=== PATIENT | female | born 1970 | race Caucasian/White ===

== ENCOUNTER 2023-11-25 13:08 | Outpatient (OUT) | payer OTHER, SELFPAY ==
[2023-11-25 13:50] LABS: Basophils Absolute Auto 0.1 10^3/uL (0.0-0.1); Basophils Percent Auto 1.7 % (0.2-2.0); Eosinophils Absolute Auto 0.1 10^3/uL (0.0-0.7); Hematocrit 34.4 % (36.0-48.0); Immature Granulocytes Abs Auto 0.08 10^3/uL (0.00-0.03); Immature Granulocytes Pct Auto 2.2 % (0.0-0.5); Lymphocytes Absolute Auto 0.8 10^3/uL (1.2-3.8); Lymphocytes Percent Auto 21.8 % (20.5-60.0); Mean Corpuscular Hemoglobin 32.1 pg (26.7-34.0); Mean Corpuscular Volume 100.3 fL (81.0-99.0); Mean Platelet Volume 10.9 fL (9.5-13.5); Monocytes Absolute Auto 0.5 10^3/uL (0.3-0.8); Monocytes Percent Auto 13.5 % (1.7-12.0); Neutrophils Absolute Auto 2.1 10^3/uL (1.4-6.5); Neutrophils Percent Auto 57.8 % (43.0-75.0); Platelet Count 102 10^3/uL (150-450); Red Blood Count 3.43 10^6/uL (4.20-5.40); Red Cell Distribution Width 14.4 % (11.0-15.0); White Blood Count 3.6 10^3/uL (4.0-11.0)
[2023-11-25 13:52] LABS: Ammonia 17 umol/L (11-32)
[2023-11-25 14:05] LABS: Alanine Aminotransferase 57 U/L (14-59); Albumin Globulin Ratio 0.9; Albumin Level 3.3 g/dL (3.4-5.0); Alkaline Phosphatase 78 U/L (46-116); Anion Gap 12.1; Aspartate Amino Transferase 99 U/L (15-37); BUN Creatinine Ratio 11.5; Bilirubin Total 0.9 mg/dL (0.2-1.0); Carbon Dioxide 29.9 mmol/L (21.0-32.0); Chloride 98 mmol/L (98-107); Estimated GFR (African America >60 (>=60); Estimated GFR (Non-African Ame 55 (>=60); Globulin 3.5 g/dL; Glucose 138 mg/dL (74-106); Magnesium 1.4 mg/dL (1.8-2.4); Sodium 137 mmol/L (136-145); Thyroid Stimulating Hormone 2.108 uIU/mL (0.358-3.740); Total Protein 6.8 g/dL (6.4-8.2)
== END 2023-11-25 13:09 | disposition home or self-care (01) ==
LOC: LAB 13:16
PROVIDERS: PCP Family Medicine; Visit Provider Family Medicine
DX: F10.20 Alcohol dependence, uncomplicated (principal)
CPT/HCPCS: 36415; 80053; 82140; 83735; 84443; 85025

== ENCOUNTER 2023-12-07 18:18 | Observation (INO) | payer OTHER, SELFPAY ==
[2023-12-07] VITALS (22 sets, daily range): BP systolic 115–211; BP diastolic 75–119; PULSE 89–115; TEMP 36.8–38.8; O2SAT 79–99; BMI 25.1; BMI 29.8
--- NOTE | 2023-12-07 18:33 | CT_ITS ---
The [address] [address] Patient Name: NICOLASA SIGALA MRN: [id number] date: 1970 Sex: F Assigned Patient Location: ER Current Patient Location: [facility] Accession/Order Number: [id number] Exam Date: 12/07/2023 19:18 Report Date: 12/07/2023 20:50 At the request of: DAYNE BUENROSTRO Procedure: CT abdomen pelvis wo con EXAM: CT abdomen pelvis wo con HISTORY: Fever, urinary symptoms COMPARISON: None. TECHNIQUE: Unenhanced CT imaging of the abdomen and pelvis. This CT exam was performed using one or more of the following dose reduction techniques: Automated exposure control, adjustment of the mA and/or KV according to patient size, or use of iterative reconstruction technique. Unless otherwise stated, incidental findings do not require dedicated follow-up imaging. FINDINGS: There is linear atelectasis in the right lower lobe. The heart size is normal. There is diffuse hepatic steatosis. The spleen, pancreas, adrenal glands, and left kidney have a normal noncontrast enhanced appearance. There is a punctate nonobstructing right midpole renal calculus. The gallbladder is distended. There is no biliary duct dilatation. The bowel is unobstructed. The appendix is normal. There is sigmoid diverticulosis without acute diverticulitis. The bladder is distended and grossly normal. There is diffuse body wall anasarca. There is degenerative disc disease of the lumbar spine. CT/CT abdomen pelvis wo con IMPRESSION: 1. Hepatic steatosis. 2. Punctate nonobstructive right nephrolithiasis. 3. Sigmoid diverticulosis without acute diverticulitis. 4. Right lower lobe atelectasis. Electronically authenticated by: CHAR ROMERO Date: 12/07/2023 20:50
--- OUTSIDE RECORDS SUMMARY | 2023-12-07 18:35 | XMS_ITS | CCD ---
Author Organization [facility] Care Team Providers Care Sanitary Napkin Machine Tender Name Role Phone Jhoan Roberto Unavailable Unavailable Jhoan Roberto Unavailable Unavailable Kelly Soto Unavailable Unavailab Kelly Tilley Unavailable Unavailable Onel Whitfield Unavailable Unavailable Ever Eyal U Unavailable Unavailable Jhoan Roberto Unavailable Unavailable Unavailable Huong Landis Unavailable Unavailable Jhoan Roberto MD Primary Care Provider [phone] Jhoan Roberto MD Primary Care Provider [phone] Jhoan Roberto MD Primary Care Provider Jhoan Roberto MD Primary Care Provider Jhoan Roberto MD Unavailable Alfredo ROBERTO Attending Unavaila Alfredo Owens Referring Unavaila Alfredo Owens Primary Care Unavaila Alfredo Owens Attending Daa Alfredo Owens Referring Unavaila ble Alfredo ROBERTO Primary Care Unavaila Alfredo Owens Primary Care Unavaila Alfredo Owens Attending Unavaila Alfredo Owens Referring Unavaila ble Alfredo ROBERTO Primary Care Unavaila Alfredo Owens Referring Unavaila ble Alfredo ROBERTO Attending Unavaila Alfredo Owens Attending Unavaila Alfredo Owens Referring Unavaila ble Alfredo ROBERTO Primary Care Unavaila Alfredo Owens Primary Care Unavaila ble EYREAlfredo Attending Unavaila ble EYREAlfrdeo Referring Unavaila ble EYREAlfredo Primary Care Unavaila ble EYREAlfredo Referring Unavaila ble EYREAlfredo Attending Unavaila ble EYREAlfredo Attending Unavaila ble EYREAlfredo Referring Unavaila ble EYREAlfredo Primary Care Unavaila ble EYREAlfredo Attending Unavaila ble EYREAlfredo Referring Unavaila ble EYREAlfredo Primary Care Unavaila ble EYREAlfredo Primary Care Unavaila ble EYREAlfredo Referring Unavaila ble EYRE, Alfredo FARRELL Attending Unavaila ble EYREAlfredo Primary Care Unavaila ble EYREAlfredo Referring Unavaila ble EYRE, Alfredo FARRELL Attending Unavaila ble EYREAlfredo Attending Unavaila ble EYREAlfredo Referring Unavaila ble EYREAlfredo Primary Care Unavaila ble EYREAlfredo Primary Care Unavaila ble EYREAlfredo Attending Unavaila ble EYREAlfredo Referring Unavaila ble EYREAlfredo Primary Care Unavaila ble EYREAlfredo Attending Unavaila ble EYREAlfredo Referring Unavaila ble EYREAlfredo Primary Care Unavaila ble EYREAlfredo Attending Unavaila ble EYREAlfredo Referring Unavaila ble EYREAlfredo Primary Care Unavaila ble EYREAlfredo Attending Unavaila ble EYREAlfredo Referring Unavaila ble EYREAlfredo Primary Care Unavaila ble EYREAlfredo Attending Unavaila ble EYREAlfredo Referring Unavaila ble EYREAlfredo Primary Care Unavaila ble EYREAlfredo Referring Unavaila ble EYREAlfredo Attending Unavaila ble Alfredo ROBERTO Primary Care Unavaila ble Alfredo ROBERTO Referring Unavaila ble EYAlfredo HAGAN Attending Unavaila ble EYAlfredo HAGAN Attending Unavaila ble Alfredo ROBERTO Referring Unavaila ble EYAlfredo HAGAN Primary Care Unavaila ble Eymilo, Dr. Jhoan Farrell Primary Care Unavailab giovanni Landis, Dr. Huong Sanders Attending Comfort genevieve JOHNSON, MD CHAR ALAS Attending Un available Eyre, Dr. Jhoan Farrell Referring Unavailab le Eyre, Dr. Jhoan Farrell Primary Care Unavailab le Eyre, Dr. Jhoan Farrell Attending Unavailab le ALEX, MD CHAR ALAS Referring Un available Eyre, Dr. Jhoan Farrell Primary Care Unavailab le Eyre, Dr. Jhoan Farrell Primary Care Unavailab le Eyre, Dr. Jhoan Farrell Attending Unavailab le Eyre, Dr. Jhoan Farrell Referring Unavailab le Eyre, Dr. Jhoan Farrell Attending Unavailab le Eyre, Dr. Jhoan Farrell Referring Unavailab le Eyre, Dr. Jhoan Farrell Primary Care Unavailab le Eyre, Dr. Jhoan Farrell Primary Care Unavailab le Eyre, Dr. Jhoan Farrell Attending Unavailab le Eyre, Dr. Jhoan Farrell Referring Unavailab le UNKNOWN, UNKNOWN Referring Unavailable Elizondo, Ms. Kenzie Mills Attending Unavailable Felisa, Dr. Jhoan Farrell Primary Care Unavailab giovanni Landis, Dr. Huong Sanders Attending Comfort genevieve Guerra, Referral Referring Unavailable Eymilo, Dr. Jhoan Farrell Primary Care Unavailab JAROD Jones Attending Unavailable JHOAN ROBERTO Primary Care Unavailable JAROD GHOSH Referring Unavailable JHOAN ROBERTO Primary Care Unavailable MICK KIMBALL Referring Unavailable EYJHOAN HAGAN Primary Care Unavailable EYJHOAN HAGAN Primary Care Unavailable JAROD GHOSH Attending Unavailable JAROD GHOSH Attending Unavailable JHOAN ROBERTO Primary Care Unavailable JAROD GHOSH Referring Unavailable JHOAN ROBERTO Primary Care Unavailable KELLY AMES Referring Unavailable JHOAN ROBERTO Primary Care Unavailable Jhoan Roberto MD Primary Care Provider JHOAN ROBERTO Primary Care Unavailable KELLY AMES Attending Jessica SANTOS MD, CHRISTOPHER Attending JHOAN Mcdonald Primary Care Unavailable NEGAR MICHELLE Referring Unavailable EYRE, JHOAN Dima Primary Care Unavailable EYRE, JHOAN C Primary Care Unavailable NEGAR MICHELLE Attending Unavailable TOD WONG Attending Unavailabl maninder MAYFIELDY KRYSTINA Referring Unavailable EYRE, JHOAN C Primary Care Unavailable BIN FUENTES Consulting Unavailable TOD WONG Admitting Unavailabl e JENNYRE, JHOAN C Primary Care Unavailable WENDI RAMON Attending Unavailable HUONG LANDIS Attending Unavailable EYRE, JHOAN Dima Primary Care Unavailable EYRE, JHOAN Ch Attending Unavailable EYRE, JHOAN C Primary Care Unavailable EYRE, JHOAN Ch Attending Unavailable EYRE, JHOAN C Primary Care Unavailable EYRE, JHOAN Ch Attending Unavailable EYRE, JHOAN C Primary Care Unavailable HUONG LANDIS Attending Unavailable EYRE, JHOAN C Primary Care Unavailable EYRE, JHOAN Dima Attending Unavailable EYRE, JHOAN C Primary Care Unavailable EYRE, JHOAN C Primary Care Unavailable EYRE, JHOAN C Referring Unavailable EYRE, JHOAN C Primary Care Unavailable KENZIE ELIZONDO Referring Unavailable EYRE, JHOAN Dima Primary Care Unavailable MILTON FARRELL Attending Unavailable EYRE, JHOAN Ch Referring Unavailable EYRE, JHOAN C Primary Care Unavailable EYRE, JHOAN C Primary Care Unavailable ERNANDEZ Attending Unavailable EYRE, JHAON Primary Care Unavailable Allergies Allergy Classification Reported Allergen(s) Allergy Type Date of Onset Reaction(s) Facility (14 sources) Seasonal allergy; Translations: [SEASONAL ALLERGIES] Allergy to substance 3 Other: See [facility] (16 sources) Pollen; Translations: [POLLEN EXTRACTS] Propensity to adverse reactions 3 Other [facility] Medications Current Medications Medication Drug Class(es) Dates Sig (Normalized) Sig (Original) acamprosate calcium 333 mg delayed release oral tablet (1 source) Start: 10-20-2023 End: 11-19-2023 take 3 tablets by mouth twice daily acamprosate DR (CAMPRAL) 333 mg tablet Take 3 tablets by mouth two times a day. 180 tablet 0 10/20/2023 11/19/2023 Active amLODIPine 5 mg oral tablet (20 sources) Dihydropyridine Calcium Channel Hernando Start: 01-13-2013 End: 02-23-2023 take 1 tablet by mouth once daily amLODIPine (NORVASC) 5 mg tablet Take 5 mg by mouth once daily. 1 02/09/2018 Active Start: 01-13-2013 take 0.5 tablet by m outh once daily after dinner amLODIPine Besylate 5 MG Oral Tablet TAKE 1/2 TABLET BY MOUTH DAILY after dinner FOR BLOOD PRESSURE Quantity: 1 Refills: 2 Ordered: 01-Jan-2022 Jhoan Roberto MD Start : 13-Jan-2013 Active Comment on above: Take 5 mg by mouth o nce daily. amoxicillin 875 mg / clavulanate 125 mg oral tablet (11 sources) Penicillin-class Antibacterial Start: 4 End: 4 take 1 tablet by mouth twice daily amoxicillin-clavul anate potassium (AUGMENTIN) 875-125 mg per tablet Take 1 tablet by mouth two times a day for 5 days. 10 tablet 0 10/20/2023 10/25/2023 Active Start: 01-01-2022 End: 10-17-2022 amoxicillin-pot clavulanate (Augmentin) 875-125 mg tablet Take by mouth. 0 01/01/2022 10/17/2022 Discontinued (Therapy completed) Start: 01-01-2022 Amoxicillin-Po t Clavulanate 875-125 MG Oral Tablet TAKE 1 TABLET EVERY 12 HOURS UNTIL GONE - with bid probiotic such as Activia till gone Quantity: 20 Refills: 0 Ordered: 01-Jan-2022 Jhoan Roberto MD Start : 01-Jan-2022 Active Start: 07-06-2019 Amoxicillin-Po t Clavulanate 875-125 MG Oral Tablet TAKE 1 TABLET EVERY 12 HOURS UNTIL GONE - with bid probiotic such as Activia till gone Quantity: 20 Refills: 0 Jhoan Roberto MD Start : 06-Jul-2019 Active bisoprolol fumarate 2.5 mg / hydroCHLOROthiazide 6.25 mg oral tablet (20 sources) Thiazide Diuretic, beta-Adrenergic Hernando Start: 06-23-2008 bisoprol/hydrochlorothiazide (ZIAC 2.5 MG-6.25 MG TAB) Take one(1) tablet daily. 0 06/23/2008 Active Start: 06-23-2008 bisoproloL-hyd rochlorothiazide (Ziac) 2.5-6.25 mg tablet Take by mouth. 06/23/2008 Active Comment on above: Take one(1) tablet d aily. cetirizine hydrochloride 10 mg oral capsule (20 sources) Histamine-1 Receptor Antagonist Start: 03-12-2012 End: 02-23-2023 Cetirizine 10 mg cap Take by mouth as needed. 0 03/12/2012 Active Comment on above: Take by mouth. Take by mouth as nee ded. cholecalciferol 0.025 mg oral tablet (20 sources) Vitamin D Start: 02-02-2017 cholecalciferol (VITAMIN D3) 1,000 unit tab tablet Take by mouth once daily. 0 02/02/2017 Active Start: 02-02-2017 cholecalcifero l (VITAMIN D3) 1,000 unit tab tablet Take by mouth. 0 02/02/2017 Active Comment on above: Take by mouth. Take by mouth once d aily. clobetasol propionate 0.0005 mg/mg topical ointment (20 sources) Corticosteroid Start: 02-07-2021 clobetasol (TEMOVATE) 0.05 % ointment Indications: Lichen sclerosus et atrophicus Apply to affected area 1-2 times per week 45 g 5 02/07/2021 Active Start: 02-07-2021 End: 02-23-2023 clobetasol (Temovate) 0.05 % ointment Apply to affected area 1- 2 times per week 0 02/07/2021 02/23/2023 Discontinued (Therapy completed) Start: 02-07-2021 Clobetasol Pro pionate 0.05 % External Ointment Apply to affected area 1-2 times per week Quantity: 45 Refills: 0 Ordered: 05-Jun-2021 DO Start : 07-Feb-2021 Active Comment on above: Apply to affected ar ea 1-2 times per week escitalopram 20 mg oral tablet (20 sources) Serotonin Reuptake Inhibitor Start: 4 End: 4 take 1 tablet by mouth once daily escitalopram oxalate (LEXAPRO) 20 mg tablet Take 1 tablet by mouth once daily. 30 tablet 0 10/21/2023 11/20/2023 Active Start: 01-07-2021 End: 08-18-2022 take 1 tablet by mouth once daily escitalopram oxalate (LEXAPRO) 10 mg tablet TAKE ONE TABLET BY MOUTH once DAILY 90 tablet 3 08/18/2022 Active Start: 01-07-2021 take 0.5 tablet by m outh once daily Escitalopram Oxalate 10 MG Oral Tablet TAKE 1/2 TABLET BY MOUTH EVERY DAY Quantity: 1 Refills: 1 Ordered: 18-Sep-2021 Jhoan Roberto MD Start : 07-Jan-2021 Active Start: 03-22-2014 take 0.5 tablet by m outh once daily Escitalopram Oxalate 5 MG Oral Tablet 1/2 pill daily Refills: 0 Jhoan Roberto MD Start : 22-Mar-2014 Active Start: 03-22-2014 take 1 tablet by yennifer th once daily Escitalopram Oxalate 20 MG Oral Tablet TAKE ONE TABLET BY MOUTH DAILY Quantity: 90 Refills: 1 Jhoan Roberto MD Start : 22-Mar-2014 Active Comment on above: Take 1 tablet by yennifer th once daily. TAKE ONE TABLET BY M OUTH EVERY DAY TAKE ONE TABLET BY M OUTH once DAILY fluticasone propionate 0.05 mg/actuat metered dose nasal spray (20 sources) Corticosteroid Start: 12-20-19 take 2 spray(s) nasal route once daily in the evening fluticasone (Flonase) 50 mcg/actuation nasal spray Indications: Seasonal allergic rhinitis due to pollen Administer 2 sprays into each nostril once daily in the evening. Shake gently. Before first use, prime pump. After use, clean tip and replace cap. 16 g 11 12/19/2022 Active Start: 07-06-2019 take 2 spray(s) nasa l route once daily Fluticasone Propionate 50 MCG/ACT Nasal Suspension USE 1- 2 SPRAY IN EACH NOSTRIL nightly before CPAP Quantity: 1 Refills: 6 Ordered: 18-Sep-2021 Jhoan Roberto MD Start : 06-Jul-2019 Active Start: 07-06-2019 take 1 spray(s) nasa l route twice daily for congestion Fluticasone Propionate 50 MCG/ACT Nasal Suspension USE 1 SPRAY IN EACH NOSTRIL TWICE DAILY seasonally for congestion ear symptoms, and allergies Quantity: 1 Refills: 6 Ordered: 06-Jul-2019 Jhoan Roberto MD Start : 06-Jul-2019 Active fluticasone (BO NASE) 50 mcg/actuation nasal spray Use 1 [place] in each nostril as needed. 0 Active Comment on above: Use 1 [place] in each nostril as needed. hydroCHLOROthiazide 12.5 mg / losartan potassium 50 mg oral tablet (20 sources) Thiazide Diuretic, Angiotensin 2 Receptor Hernando Start: 10-03-19 22 End: 01-21-20 24 take 1 tablet by mouth once daily in the morning losartan-hydroCH LOROthiazide (HYZAAR) 50-12.5 mg per tablet TAKE ONE TABLET BY MOUTH EVERY MORNING for blood pressure 0 10/02/2021 Active Start: 05-09-2021 End: 10-17-2022 take 1 tablet by mouth once daily in the morning Losartan Potassium-HCTZ 100-25 MG Oral Tablet TAKE 1 TABLET BY MOUTH EVERY MORNING for blood pressure Quantity: 30 Refills: 6 Ordered: 28-May-2022 Jhoan Roberto MD Start : 09-May-2021 Active Start: 05-09-2021 take 1 tablet by yennifer once daily in the morning Losartan Potassium-HCTZ 50-12.5 MG Oral Tablet TAKE ONE TABLET BY MOUTH EVERY MORNING for blood pressure Quantity: 21 Refills: 0 Ordered: 09-May-2021 DO Start : 09-May-2021 Complete Comment on above: TAKE ONE TABLET BY M OUTH EVERY MORNING for blood pressure lisinopril 20 mg oral tablet (1 source) Angiotensin Converting Enzyme Inhibitor Start: 6 [id number] Medication lisinopril lisinopril 20 mg 06/28/2015 Active (Outside) magnesium oxide 400 mg oral tablet (20 sources) Start: 2 magnesium oxide (Mag-Ox) 400 mg (241.3 mg magnesium) tablet Take by mouth. 01/01/2022 Active omeprazole 40 mg delayed release oral capsule (20 sources) Proton Pump Inhibitor Start: 4 End: 4 take 1 capsule by mouth twice daily omeprazole (PriLOSEC) [address] capsule Indications: Dyspepsia Take 1 capsule (40 mg) by mouth 2 times a day. 60 capsule 6 09/25/2023 Active Start: 03-19-2023 take 1 capsule by mo uth twice daily omeprazole (PriLOSEC) [address] capsule Indications: Dyspepsia Take 1 capsule (40 mg) by mouth 2 times a day. 60 capsule 3 03/19/2023 Active Start: 05-09-2021 End: 10-17-2022 take 1 capsule by mouth once daily before breakfast as needed, then take 1 capsule by mouth once daily as needed omeprazole (PRILOSEC) 40 mg capsule TAKE ONE CAPSULE BY MOUTH EVERY DAY before breakfast for 4 weeks then take 1 capsule daily as needed 0 10/06/2021 Active Comment on above: TAKE ONE CAPSULE BY MOUTH EVERY DAY before breakfast for 4 weeks then take 1 capsule daily as needed predniSONE 10 mg oral tablet (20 sources) Start: 09-25-2023 predniSONE (Deltasone) 10 mg tablet Indications: Spasm of muscle of lower back Take 4 tablets once daily with food, for 2 days, then 3 tablets once daily for 2 days, then 2 tablets once daily for 2 days, and then 1 tablet daily for 2 days, then discontinue 20 tablet 09/25/2023 Active Start: 06-27-2022 End: 10-17-2022 predniSONE (Deltasone) 20 mg tablet Indications: Acute bilateral low back pain with sciatica, sciatica laterality unspecified Take 2 tabs (40mg) daily for 3 days, then take 1.5 tabs (40mg) daily for 3 days, then take 1 tab (20mg) daily for 3 days then 0.5tab (10mg) for 3 days 18 tablet 0 06/27/2022 10/17/2022 Discontinued (Therapy completed) Start: 04-07-2022 predniSONE 10 MG Oral Tablet take 4 pills once a day x 2 days with food, then 3 q.d. X2 days, then 2 q.d. X2 days, then 1 daily for 2 days then stop. Quantity: 20 Refills: 0 Ordered: 07-Apr-2022 Jhoan Roberto MD Start : 07-Apr-2022 Active Start: 01-09-2021 predniSONE 10 MG Oral Tablet take 4 pills once a day x 2 days with food, then 3 q.d. X2 days, then 2 q.d. X2 days, then 1 daily for 2 days then stop. Quantity: 20 Refills: 0 Ordered: 09-Jan-2021 Jhoan Roberto MD Start : 09-Jan-2021 Active sulfacetamide sodium 100 mg/ml / sulfur 50 mg/ml medicated liquid soap (1 source) Sulfonamide Antibacterial Start: 06-28-2015 [id number] Medication sulfacetamide sodium-sulfur 10 %-5 % (w/w) topical cleanser sulfacetamide sodium-sulfur 10 %-5 % (w/w) topical cleanser 10-5 % (w/w) 1 Application topically daily 06/28/2015 Ineffective SUMAtriptan 50 mg oral tablet (20 sources) Serotonin-1b and Serotonin-1d Receptor Agonist Start: 08-02-2015 SUMAtriptan (Imitrex ) 50 mg tablet Take by mouth. 08/02/2015 Active Start: 08-02-2015 SUMAtriptan Solis ccinate 50 MG Oral Tablet take at onset, may repeat every 2 hrs, not to exceed 200 mg in 24 hrs Quantity: 1 Refills: 3 Ordered: 24-Apr-2020 Jhoan Roberto MD Start : 02-Aug-2015 Active SUMATRIPTAN SUCC INATE (IMITREX ORAL) Take by mouth as needed. 0 Active Comment on above: Take by mouth as nee ded. tiZANidine 4 mg oral capsule (4 sources) Central alpha-2 Adrenergic Agonist Start: 09-25-2023 End: 09-24-2024 take 1 capsule by mouth every six hours for muscle spasms tiZANidine (Zanaflex) 4 mg capsule Indications: Spasm of muscle of lower back Take 1 capsule (4 mg) by mouth every 6 hours if needed for muscle spasms (may cause drowsiness). 90 capsule 2 09/25/2023 09/24/2024 Active take 1 capsule by [facility] every eight hours as needed tiZANidine HCl (ZANAFLEX) 4 mg capsule T moris 4 mg by mouth three times a day as needed for muscle spasm. 0 Active tretinoin 0.25 mg/ml topical cream (9 sources) Retinoid Start: 03-04-2023 End: 03-03-2024 tretinoin (Retin-A) 0.025 % cream Indications: Acne vulgaris Apply topically once daily at bedtime. Pea sized amount to entire face 1-2 nights weekly; work up to nightly as tolerated 45 g 11 03/04/2023 03/03/2024 Active Vitamin B Complex (13 sources) Start: 01-01-2022 take 1 tablet by mouth once daily vitamin B complex (Vitamins B Complex) tablet Take 1 tablet by mouth once daily. 01/01/2022 Active Start: 01-01-2022 take 1 tablet by [facility] once daily vitamin B complex (Vitamins B Complex) tablet Take 1 tablet by mouth once daily. 0 01/01/2022 Active Completed/Discontinued Medications Medication Drug Class(es) Dates Sig (Normalized) Sig (Original) acetaminophen 325 mg / HYDROcodone bitartrate 5 mg oral tablet (1 source) Opioid Agonist Start: 01-08-2021 take 1 tablet by mouth every six hours as needed for pain HYDROcodone-Acetam inophen 5-325 MG Oral Tablet TAKE ONE TABLET BY MOUTH EVERY 6 HOURS NEEDED FOR PAIN FOR UP TO 3 DAYS Quantity: 10 Refills: 0 Ordered: 08-Jan-2021 DO Start : 08-Jan-2021 Complete amoxicillin 500 mg oral tablet (8 sources) Penicillin-class Antibacterial Start: 01-04-2021 take 1 tablet by mouth every twelve hours Amoxicillin 500 MG Oral Tablet TAKE ONE TABLET BY MOUTH EVERY 12 HOURS FOR 10 DAYS Quantity: 20 Refills: 0 Ordered: 04-Jan-2021 DO Start : 04-Jan-2021 Active benzoyl peroxide 0.0375 mg/mg / clindamycin phosphate 0.012 mg/mg topical gel (2 sources) Lincosamide Antibacterial Start: 10-11-2015 [id number] Medication clindamycin 1.2 % (1 % base)-benzoyl peroxide 3.75 % topical gel [place] 1.2 % (1 % base)-3.75 % topical gel 1.2 %(1 % base) -3.75 % 1 Application topically in the morning 10/11/2015 Prior History No Longer Active clindamycin 10 mg/ml topical lotion (5 sources) Lincosamide Antibacterial Start: 08-02-2022 End: 02-23-2023 clindamycin (Cleocin T) 1 % lotion Apply topically 2 times a day. Apply to affected area 0 08/02/2022 02/23/2023 Discontinued (Therapy completed) Start: 06-04-2022 [id number] Medicat ion clindamycin 1 % lotion clindamycin 1 % lotion 1 % 1 Application topically twice a day 06/04/2022 Active (Current) docosahexaenoic acid 120 mg / eicosapentaenoic acid 180 mg oral capsule (20 sources) Start: 01-01-2022 End: 02-23-2023 fish oil concentrate (Bennet-3) 120-180 mg capsule Take by mouth. 0 01/01/2022 02/23/2023 Discontinued (Therapy completed) hydroCHLOROthiazide 12.5 mg oral tablet (20 sources) Thiazide Diuretic Start: 02-02-2017 End: 07-07-2022 hydroCHLOROthiazide (HYDRODIURIL, ESIDRIX) 12.5 mg tablet Take by mouth. 0 02/02/2017 07/07/2022 Discontinued Comment on above: Take by mouth. hydroCHLOROthiazide 25 mg / spironolactone 25 mg oral tablet (2 sources) Thiazide Diuretic, Aldosterone Antagonist Start: 10-11-2015 take 1 tablet by mouth once daily [id number] Medication spironolactone 25 mg tablet spironolactone 25 mg tablet 25 mg 1 Tablet by mouth daily 10/11/2015 Prior History No Longer Active methylPREDNISolone 4 MG Oral Tablet Therapy Pack (8 sources) Start: 01-04-2021 methylPREDNISolone 4 MG Oral Tablet Therapy Pack TAKE BY MOUTH DIRECTED ON PACKAGE Quantity: 21 Refills: 0 Ordered: 04-Jan-2021 DO Start : 04-Jan-2021 Active naproxen 500 mg delayed release oral tablet (20 sources) Nonsteroidal Anti-inflammator y Drug Start: 10-20-[address] 500 MG TBEC TAKE 1 TABLET EVERY 12 HOURS NEEDED with food prn pain Quantity: 40 Refills: 2 Ordered: 20-Oct-2018 Jhoan Roberto MD Start : 20-Oct-2018 Active spironolactone 50 mg oral tablet (4 sources) Aldosterone Antagonist Start: 06-28-2015 take 1 tablet by mouth in the morning [id number] Medication spironolactone 50 mg tablet spironolactone 50 mg tablet 50 mg 1 Tablet by mouth in the morning 01/09/2016 Prior History No Longer Active Vitamin B Complex Oral Tablet (20 sources) Start: 01-01-2022 take 1 tablet by mouth once daily Vitamin B Complex Oral Tablet TAKE 1 TABLET DAILY. Quantity: 0 Refills: 0 Ordered: 01-Jan-2022 Jhoan Roberto MD Start : 01-Jan-2022 Active Problems Active Problems Problem Classification Problem Date Documented Date Episodic/Chronic Abdominal pain (20 sources) Right upper quadrant pain; Translations: [Abdominal pain, right upper quadrant] Onset: 10-17-2022 Resolved: 06-07-2024 06-30-2023 Episodic Alcohol-related disorders (20 sources) Alcoholism; Translations: [Alcohol dependence, uncomplicated] Onset: 03-18-2023 Resolved: 10-20-2023 03-20-2023 Chronic Anxiety disorders (20 sources) Anxiety; Translations: [Mild anxiety] Onset: 10-17-2022 10-17-2022 Chronic Aortic; peripheral; and visceral artery aneurysms (20 sources) Ascending aorta dilatation; Translations: [Thoracic aortic ectasia] Onset: 10-17-2022 10-17-2022 Chronic Biliary tract disease (13 sources) Cholesterolosis of gallbladder; Translations: [Polyp of gallbladder] Onset: 12-24-2022 03-19-2023 Episodic Coagulation and hemorrhagic disorders (5 sources) Thrombocytopenic disorder; Translations: [Thrombocytopenia, unspecified] Onset: 09-28-2023 09-28-2023 Chronic Diseases of white blood cells (3 sources) Neutropenia; Translations: [Neutropenia, unspecified] Onset: 09-28-2023 09-28-2023 Chronic Disorders of lipid metabolism (20 sources) Pure hypercholesterolemia; Translations: [Hyperlipidemia] Onset: 06-18-2011 Resolved: 03-19-2023 10-17-2022 Chronic Diverticulosis and diverticulitis (1 source) Diverticulosis of intestine, part unspecified, without perforation or abscess without bleeding; Translations: [Diverticulosis of intestine, part unspecified, without perforation or abscess without bleeding] Onset: 11-23-2023 Chronic E Codes: Fall (1 source) Unspecified fall, initial encounter; Translations: [Fall, initial encounter] Onset: 10-16-2023 Episodic Esophageal disorders (20 sources) Gastroesophageal reflux disease; Translations: [Esophageal reflux] Onset: 10-17-2022 10-17-2022 Chronic Essential hypertension (20 sources) Hypertensive disorder; Translations: [Unspecified essential hypertension] Onset: 10-17-2022 10-17-2022 Chronic Fluid and electrolyte disorders (7 sources) Hyponatremia; Translations: [Hypo-osmolality and hyponatremia] Onset: 09-28-2023 Resolved: 10-20-2023 09-28-2023 Episodic Fracture of upper limb (5 sources) Closed fracture of base of fifth metacarpal; Translations: [Nondisplaced fracture of base of fifth metacarpal bone, left hand, initial encounter for closed fracture] Onset: 05-13-2023 04-09-2023 Episodic Headache; including migraine (20 sources) Migraine; Translations: [Migraine, unspecified, without mention of intractable migraine without mention of status migrainosus] Onset: 10-17-2022 10-17-2022 Chronic Immunizations and screening for infectious disease (20 sources) Patient encounter status; Translations: [Other specified vaccination] Episodic Menstrual disorders (20 sources) Irregular periods; Translations: [Irregular menstrual cycle] Onset: 10-17-2022 10-17-2022 Chronic Mood disorders (20 sources) Seasonal affective disorder; Translations: [Other specified episodic mood disorder] Onset: 10-17-2022 10-17-2022 Chronic Nausea and vomiting (7 sources) Nausea; Translations: [Nausea with vomiting, unspecified] Onset: 10-15-2023 Episodic Nutritional deficiencies (2 sources) Malnutrition (calorie); Translations: [Moderate protein-calorie malnutrition] Onset: 10-16-2023 10-16-2023 Chronic Open wounds of head; neck; and trunk (1 source) Laceration without foreign body of lip, initial encounter; Translations: [Lip laceration, initial encounter] Onset: 10-16-2023 Episodic Osteoarthritis (20 sources) Osteoarthritis of right knee joint; Translations: [Osteoarthrosis, localized, primary, lower leg] Onset: 10-17-2022 10-17-2022 Chronic Other and unspecified benign neoplasm (4 sources) Hemangioma of skin and subcutaneous tissue; Translations: [Hemangioma of skin and subcutaneous tissue] Onset: 02-28-2021 Episodic Other and unspecified benign neoplasm (2 sources) Melanocytic nevi of trunk Onset: 02-28-2021 Episodic Other and unspecified benign neoplasm (5 sources) Melanocytic nevi of unspecified upper limb, including shoulder Onset: 03-01-2020 Episodic Other and unspecified benign neoplasm (2 sources) Melanocytic nevi of right upper limb, including shoulder Onset: 02-28-2021 Episodic Other and unspecified benign neoplasm (2 sources) Melanocytic nevi of left upper limb, including shoulder Onset: 02-28-2021 Episodic Other and unspecified benign neoplasm (2 sources) Melanocytic nevi of unspecified lower limb, including hip Onset: 02-28-2021 Episodic Other and unspecified benign neoplasm (2 sources) Melanocytic nevi of right lower limb, including hip Onset: 02-28-2021 Episodic Other and unspecified benign neoplasm (2 sources) Melanocytic nevi of left lower limb, including hip Onset: 02-28-2021 Episodic Other and unspecified benign neoplasm (1 source) Adenomatous polyp of colon ; Translations: [Benign neoplasm of colon, unspecified] 10-17-2022 Episodic Other and unspecified benign neoplasm (2 sources) Benign neoplasm of colon; Translations: [Benign neoplasm of colon, unspecified] 02-23-2023 Episodic Other and unspecified benign neoplasm (1 source) Hemangioma of skin; Translations: [Hemangioma of skin and subcutaneous tissue] 09-30-2023 Episodic Other and unspecified benign neoplasm (1 source) Melanocytic nevus; Translations: [Melanocytic nevi, unspecified] 09-30-2023 Episodic Other and unspecified benign neoplasm (2 sources) Melanocytic nevi, unspecified; Translations: [Melanocytic nevi, unspecified] Onset: 09-30-2023 Episodic Other eye disorders (5 sources) Eye / vision finding; Translations: [Vision changes] Episodic Other liver diseases (20 sources) Steatosis of liver; Translations: [Other chronic nonalcoholic liver disease] Onset: 10-17-2022 10-17-2022 Chronic Other liver diseases (5 sources) Fatty (change of) liver, not elsewhere classified; Translations: [Fatty (change of) liver, not elsewhere classified] Onset: 10-17-2022 Chronic Other liver diseases (5 sources) Hepatomegaly, not elsewhere classified; Translations: [Hepatomegaly, not elsewhere classified] Onset: 12-24-2022 Episodic Other liver diseases (1 source) High lipase level in serum; Translations: [Abnormal levels of other serum enzymes] Onset: 10-15-2023 10-15-2023 Episodic Other liver diseases (1 source) Abnormal levels of other serum enzymes; Translations: [Elevated lipase] Onset: 10-15-2023 Episodic Other nervous system disorders (20 sources) Peripheral nerve disease ; Translations: [Unspecified hereditary and idiopathic peripheral neuropathy] Onset: 10-17-2022 10-17-2022 Chronic Other nervous system disorders (1 source) Polyneuropathy; Translations: [Other specified polyneuropathies] 01-23-2023 Chronic Other nervous system disorders (2 sources) Other specified polyneuropathies; Translations: [Other specified polyneuropathies] Onset: 10-17-2022 Chronic Other nervous system disorders (1 source) Unspecified abnormalities of gait and mobility; Translations: [Gait abnormality] Onset: 10-15-2023 Episodic Other non-traumatic joint disorders (6 sources) Knee pain; Translations: [Pain in right knee] Onset: 10-17-2022 10-17-2022 Episodic Other non-traumatic joint disorders (2 sources) Pain in left wrist; Translations: [Pain in left wrist] Onset: 04-06-2023 Episodic Other nutritional; endocrine; and metabolic disorders (5 sources) Overweight; Translations: [Overweight] Chronic Other nutritional; endocrine; and metabolic disorders (20 sources) Body mass index 30+ - obesity; Translations: [Body Mass Index 33.0-33.9, adult] Resolved: 01-07-2021 Chronic Other nutritional; endocrine; and metabolic disorders (20 sources) Obesity; Translations: [Obesity, unspecified] Chronic Other nutritional; endocrine; and metabolic disorders (20 sources) Morbid obesity; Translations: [Morbid (severe) obesity due to excess calories] Onset: 02-14-2016 Resolved: 03-19-2023 02-14-2016 Chronic Other nutritional; endocrine; and metabolic disorders (1 source) Morbid (severe) obesity due to excess calories; Translations: [Morbid obesity due to excess calories (HCC)] Onset: 02-14-2016 Chronic Other screening for suspected conditions (not mental disorders or infectious disease) (20 sources) CT of head abnormal; Translations: [Raised TSH level] Onset: 10-17-2022 Resolved: 04-25-2020 Episodic Other skin disorders (6 sources) Other melanin hyperpigmentation; Translations: [Other melanin hyperpigmentation] Onset: 02-28-2021 Episodic Other skin disorders (4 sources) Other seborrheic keratosis; Translations: [Other seborrheic keratosis] Onset: 02-28-2021 Episodic Other skin disorders (1 source) Mass of abdominal wall; Translations: [Localized swelling, mass and lump, trunk] Onset: 10-17-2022 10-17-2022 Episodic Other skin disorders (12 sources) Seborrheic keratosis; Translations: [Other seborrheic keratosis] Onset: 06-04-2022 03-04-2023 Episodic Other skin disorders (1 source) Lentiginosis; Translations: [Other melanin hyperpigmentation] 09-30-2023 Episodic Other upper respiratory disease (20 sources) Allergic rhinitis; Translations: [Allergic rhinitis, cause unspecified] Onset: 10-17-2022 10-17-2022 Chronic Comment on above: ragweed is worst sea son; Residual codes; unclassified (20 sources) Finding related to sleep; Translations: [Other sleep disturbances] Onset: 10-17-2022 Resolved: 03-30-2022 10-17-2022 Chronic Residual codes; unclassified (20 sources) Obstructive sleep apnea syndrome; Translations: [Obstructive sleep apnea (adult)(pediatric)] Onset: 10-17-2022 10-17-2022 Chronic Residual codes; unclassified (20 sources) At risk of heart disease; Translations: [Other specified conditions influencing health status] Episodic Comment on above: 10 year cardiac risk 3.3% October 2018; Residual codes; unclassified (3 sources) Memory impairment; Translations: [Other amnesia] Onset: 09-28-2023 09-28-2023 Episodic Residual codes; unclassified (1 source) Alcoholism; Translations: [Alcohol use disorder] Onset: 10-19-2023 10-19-2023 Episodic Residual codes; unclassified (2 sources) Other amnesia; Translations: [Other amnesia] Onset: 09-25-2023 Episodic Spondylosis; intervertebral disc disorders; other back problems (20 sources) Sciatica; Translations: [Sciatica] Onset: 07-31-2014 10-17-2022 Episodic Superficial injury; contusion (1 source) Abrasion of left cornea; Translations: [Injury of conjunctiva and corneal abrasion without foreign body, left eye, initial encounter] Episodic Syncope (20 sources) Near syncope; Translations: [Syncope and collapse] Onset: 01-29-2022 Resolved: 03-30-2022 10-17-2022 Episodic Unclassified (2 sources) FMLA Onset: 03-06-2023 Urinary tract infections (11 sources) Acute cystitis; Translations: [Acute cystitis with hematuria] Onset: 03-05-2018 03-05-2018 Episodic Past or Other Problems Problem Classification Problem Date Documented Date Episodic/Chronic Administrative/social admission (20 sources) Stress at work; Translations: [Adverse effects of work environment] Resolved: 03-30-2022 Episodic Blindness and vision defects (20 sources) Presbyopia; Translations: [Unspecified astigmatism, bilateral] Onset: 10-17-2022 10-17-2022 Episodic Diabetes mellitus without complication (20 sources) Prediabetes; Translations: [Other abnormal glucose] Onset: 10-17-2022 10-17-2022 Episodic Fracture of lower limb (20 sources) Fracture of phalanx of foot; Translations: [Closed fracture of one or more phalanges of foot] Onset: 10-17-2022 Resolved: 03-19-2023 10-17-2022 Episodic Genitourinary symptoms and ill-defined conditions (20 sources) H/O: hematuria; Translations: [Personal history of other specified urinary system disorders] Resolved: 07-28-2014 Episodic Nonspecific chest pain (20 sources) Chest pain; Translations: [Chest pain, unspecified] Resolved: 03-23-2019 Episodic Nutritional deficiencies (20 sources) Decreased vitamin D; Translations: [Other abnormal blood chemistry] Onset: 10-17-2022 10-17-2022 Episodic Osteoarthritis (5 sources) Osteoarthritis of right knee joint; Translations: [Primary osteoarthritis of right knee] Other and unspecified benign neoplasm (20 sources) Polyp of colon; Translations: [Benign neoplasm of colon] Onset: 10-17-2022 10-17-2022 Episodic Other and unspecified benign neoplasm (20 sources) Benign neoplasm of soft tissue; Translations: [Benign neoplasm of skin, site unspecified] Onset: 10-17-2022 10-17-2022 Episodic Other and unspecified benign neoplasm (3 sources) Benign neoplasm of colon, unspecified; Translations: [Sessile serrated polyp of colon] Onset: 02-23-2023 Episodic Other and unspecified benign neoplasm (10 sources) Melanocytic nevus of lower limb; Translations: [Melanocytic nevi of right lower limb, including hip] Onset: 06-04-2022 03-06-2023 Episodic Other and unspecified benign neoplasm (7 sources) Tubular adenoma of colon; Translations: [Benign neoplasm of colon, unspecified] Onset: 03-19-2023 03-19-2023 Episodic Other connective tissue disease (20 sources) H/O: back problem; Translations: [Personal history of other musculoskeletal disorders] Resolved: 10-06-2015 Episodic Other diseases of kidney and ureters (20 sources) Cyst of kidney; Translations: [Cyst of kidney, acquired] Onset: 03-05-2018 03-05-2018 Episodic Other eye disorders (20 sources) Swelling or mass of eye; Translations: [Puffy Eyelids] Onset: 09-29-2011 Episodic Other injuries and conditions due to external causes (20 sources) Injury of foot; Translations: [Knee, leg, ankle, and foot injury] Resolved: 03-07-2015 Episodic Other injuries and conditions due to external causes (20 sources) Injury of toe; Translations: [Knee, leg, ankle, and foot injury] Onset: 10-17-2022 Resolved: 03-19-2023 10-17-2022 Episodic Other liver diseases (20 sources) ALT (SGPT) level raised; Translations: [Nonspecific elevation of levels of transaminase or lactic acid dehydrogenase [LDH]] Resolved: 03-23-2019 Episodic Other liver diseases (7 sources) Large liver; Translations: [Hepatomegaly, not elsewhere classified] Onset: 03-19-2023 03-19-2023 Episodic Other lower respiratory disease (20 sources) Snoring; Translations: [Other respiratory abnormalities] Onset: 10-17-2022 10-17-2022 Episodic Other nervous system disorders (20 sources) Cyst of pineal gland; Translations: [Other specified endocrine disorders] Onset: 10-17-2022 10-17-2022 Episodic Other nervous system disorders (20 sources) H/O: respiratory disease; Translations: [Obstructive sleep apnea (adult)(pediatric)] Resolved: 03-30-2022 Episodic Other non-traumatic joint disorders (20 sources) Pain in right knee; Translations: [Acute pain of right knee] Onset: 10-17-2022 Resolved: 03-19-2023 10-17-2022 Episodic Other nutritional; endocrine; and metabolic disorders (20 sources) H/O: metabolic disorder; Translations: [Personal history of other endocrine, metabolic, and immunity disorders] Resolved: 10-06-2015 Episodic Other nutritional; endocrine; and metabolic disorders (20 sources) H/O: raised blood lipids; Translations: [Personal history of other endocrine, metabolic, and immunity disorders] Resolved: 03-23-2019 Episodic Other nutritional; endocrine; and metabolic disorders (20 sources) Overweight; Translations: [Overweight] Onset: 10-17-2022 10-17-2022 Episodic Other skin disorders (20 sources) Cyst of finger; Translations: [Other specified disorders of skin] Resolved: 04-25-2020 Episodic Other skin disorders (9 sources) Acne vulgaris; Translations: [Acne vulgaris] Onset: 06-28-2015 Episodic Other skin disorders (20 sources) Easy bruising; Translations: [Other symptoms involving skin and integumentary tissues] Onset: 10-17-2022 10-17-2022 Episodic Other skin disorders (20 sources) Abdominal mass; Translations: [Abdominal or pelvic swelling, mass, or lump, unspecified site] Onset: 10-17-2022 10-17-2022 Episodic Other skin disorders (11 sources) Acne vulgaris; Translations: [Acne vulgaris] Onset: 06-04-2022 03-04-2023 Episodic Other skin disorders (10 sources) Disorder of pigmentation; Translations: [Other melanin hyperpigmentation] Onset: 06-04-2022 03-06-2023 Episodic Other upper respiratory disease (20 sources) Nasal congestion; Translations: [Other disease of nasal cavity and sinuses] Onset: 06-18-2011 Episodic Other upper respiratory infections (20 sources) Sinusitis; Translations: [Unspecified sinusitis (chronic)] Onset: 09-05-2011 Resolved: 03-06-2023 10-17-2022 Chronic Other upper respiratory infections (20 sources) Sinusitis; Translations: [Acute sinusitis] Onset: 10-17-2022 Resolved: 03-06-2023 10-17-2022 Episodic Otitis media and related conditions (20 sources) Dysfunction of eustachian tube; Translations: [Dysfunction of Eustachian tube] Onset: 10-17-2022 10-17-2022 Episodic Residual codes; unclassified (20 sources) Symptom of neck; Translations: [Other symptoms involving head and neck] Resolved: 07-30-2014 Episodic Residual codes; unclassified (20 sources) Insomnia; Translations: [Insomnia, unspecified] Onset: 10-17-2022 10-17-2022 Episodic Residual codes; unclassified (20 sources) Finding of sensation of pharynx; Translations: [Other symptoms involving head and neck] Resolved: 07-30-2014 Episodic Residual codes; unclassified (20 sources) History of headache; Translations: [Personal history of other specified diseases] Resolved: 10-06-2015 Episodic Residual codes; unclassified (20 sources) History of clinical finding in subject; Translations: [Personal history of other diseases of digestive system] Resolved: 04-25-2020 Episodic Residual codes; unclassified (20 sources) H/O: blood disorder; Translations: [Personal history of unspecified disease] Resolved: 03-30-2022 Episodic Residual codes; unclassified (20 sources) H/O: Disorder; Translations: [Personal history of other specified diseases] Resolved: 03-30-2022 Episodic Residual codes; unclassified (5 sources) History of headache; Translations: [History of headache] Residual codes; unclassified (5 sources) Disorder of thoracic segment of trunk; Translations: [History of Strain of thoracic region] Sprains and strains (20 sources) Disorder of thoracic segment of trunk; Translations: [Sprain of thoracic] Resolved: 10-06-2015 Episodic Unclassified (5 sources) Finding of sensation of pharynx; Translations: [History of Throat fullness] Unclassified (5 sources) Patient encounter status; Translations: [Encounter for preventive health examination] Unclassified (20 sources) Right handed; Translations: [Right handed] Unclassified (13 sources) Onset: 10-17-2022 Resolved: 03-18-2023 10-17-2022 NEGATED: Highlighted row has not occurred!Residual codes; unclassified (20 sources) Disease Episodic Results Test Name Value Interpretation Reference Range Facility Alcoholon 11-23-2023 Blood Alcohol Concentration 0.079 G/dL Normal [facility] Comment on above: Performed By: #### C BCWD #### [facility] [address] [place] [address] Ethanol [Mass/Vol] 90 mg/dL Normal [facility] Comment on above: Performed By: #### C BCWD #### [facility] [address] [place] [address] Bacterial susceptibility bernal el by [facility] 11-23-2023 Bacterial susceptibility panel MT (Isol) ORDER#: [id number] ORDERED BY: ERNANDEZ SOURCE: Urine Clean Catch COLLECTED: 11/23/23 10:30 ANTIBIOTICS AT [facility].: RECEIVED : 11/23/23 13:58 Culture, Urine FINAL 11/28/23 07:19 Performed at [address] [place] [address] Escherichia coli >100,000 CFU/ML Identification by MALDI-TOF E. coli ANTIBIOTICS MT Interp Ampicillin >=32 R Cefazolin >=64 R D1 Ceftriaxone 0.5 S Confirmatory ESBL NEGATIV S Gentamicin <=1 S Levofloxacin <=0.12 S Nitrofurantoin <=16 S Piperacillin/Tazobactam <=4 S Trimethoprim/Sulfamethox azole <=20 S -----DRUG COMMENTS D1: Cefazolin sensitivity results can be used to predict the effectiveness of oral cephalosporins (eg. Cephalexin) in uncomplicated Urinary Tract Infections due to E. coli, K. pneumoniae, and P. mirabilis S=SUSCEPTIBLE I=INTERMEDIATE R=RESISTANT Normal [facility] Comment on above: Performed By: #### C BCWD #### [facility] [address] [place] [address] CBC With Platelet and Differ entialon 11-23-2023 Basophils (Bld) [#/Vol] 0.0 10*3/uL Normal 0.0-0.2 [facility] Comment on above: Performed By: #### C BCWD #### [facility] [address] [place] [address] Basophils/100 WBC (Bld) 0.4 % Normal [facility] Comment on above: Performed By: #### C BCWD #### [facility] [address] [place] [address] Eosinophils (Bld) [#/Vol] 0.0 10*3/uL Normal 0.0-0.7 [facility] Comment on above: Performed By: #### C BCWD #### [facility] [address] [place] [address] Eosinophils/100 WBC (Bld) 0.1 % Normal [facility] Comment on above: Performed By: #### C BCWD #### [facility] [address] [place] [address] Erythrocyte distribution width (RBC) [Ratio] 14.9 % Critically high 11.5-14.5 [facility] Comment on above: Performed By: #### C BCWD #### [facility] [address] [place] [address] Hematocrit (Bld) [Volume fraction] 34.6 % Low 37.0-47.0 [facility] Comment on above: Performed By: #### C BCWD #### [facility] [address] [place] [address] Hemoglobin (Bld) [Mass/Vol] 11.8 g/dL Low 12.0-16.0 [facility] Comment on above: Performed By: #### C BCWD #### [facility] [address] [place] [address] Lymphocytes (Bld) [#/Vol] 0.4 10*3/uL Low 1.0-4.8 [facility] Comment on above: Performed By: #### C BCWD #### [facility] [address] [place] [address] Lymphocytes/100 WBC (Bld) 5.5 % Normal [facility] Comment on above: Performed By: #### C BCWD #### [facility] [address] [place] [address] MCH (RBC) [Entitic mass] 32.0 pg Critically high 27.0-31.3 [facility] Comment on above: Performed By: #### C BCWD #### [facility] [address] [place] [address] MCHC 34.1 % Normal 33.0-37.0 [facility] Comment on above: Performed By: #### C BCWD #### [facility] [address] [place] [address] MCV (RBC) [Entitic vol] 93.8 fL Normal 79.4-94.8 [facility] Comment on above: Performed By: #### C BCWD #### [facility] [address] [place] [address] Monocytes (Bld) [#/Vol] 0.7 10*3/uL Normal 0.2-0.8 [facility] Comment on above: Performed By: #### C BCWD #### [facility] [address] [place] [address] Monocytes/100 WBC (Bld) 9.0 % Normal [facility] Comment on above: Performed By: #### C BCWD #### [facility] [address] [place] [address] Neutrophils (Bld) [#/Vol] 6.6 10*3/uL Critically high 1.4-6.5 [facility] Comment on above: Performed By: #### C BCWD #### [facility] [address] [place] [address] Neutrophils/100 WBC (Bld) 84.6 % Normal [facility] Comment on above: Performed By: #### C BCWD #### [facility] [address] [place] [address] Platelets (Bld) [#/Vol] 120 10*3/uL Low 130-400 [facility] Comment on above: Performed By: #### C BCWD #### [facility] [address] [place] [address] RBC (Bld) [#/Vol] 3.69 10*6/uL Low 4.20-5.40 [facility] Comment on above: Performed By: #### C BCWD #### [facility] [address] [place] [address] WBC (Bld) [#/Vol] 7.8 10*3/uL Normal 4.8-10.8 [facility] Comment on above: Performed By: #### C BCWD #### [facility] [address] [place] [address] CT ABDOMEN PELVIS W IV CONTR Long 11-23-2023 CT ABDOMEN PELVIS W IV CONTRAST EXAMINATION: CT OF THE ABDOMEN AND PELVIS WITH CONTRAST 11/23/2023 12:28 pm TECHNIQUE: CT of the abdomen and pelvis was performed with the administration of intravenous contrast. Multiplanar reformatted images are provided for review. Automated exposure control, iterative reconstruction, and/or weight based adjustment of the mA/kV was utilized to reduce the radiation dose to as low as reasonably achievable. Radiation dose: Total exam DL P: 605.86 mGy-cm HISTORY: ORDERING SYSTEM PROVIDED HISTORY: r abd TECHNOLOGIST PROVIDED HISTORY: Reason for exam:->r abd Additional Contrast?->None Decision Support Exception - unselect if not a suspected or confirmed emergency medical condition->Emergency Medical Condition (MA) What reading provider will be dictating this exam?->CRC FINDINGS: Lower Chest: Atelectasis is seen in the bases. No consolidation, pneumothorax or pleural effusion. The chest is dictated separate from this examination. Organs: The liver is diffusely decreased in attenuation. No intrahepatic ductal dilation is seen. The spleen, pancreas and gallbladder are unremarkable. No hydronephrosis is seen. GI/Bowel: Diverticulosis coli is noted predominantly in the sigmoid colon. There is no evidence for inflammatory changes. The descending colon, ascending and transverse colon show questionable bowel wall thickening versus incomplete distension. No pericecal stranding or pericecal fluid collection seen to suggest appendicitis. No free air or free fluid is seen. Pelvis: The bladder distends and the bladder wall appears slightly thickened. Uterus is visualized. Peritoneum/Retroperitone um: No bulky adenopathy, free fluid or hemorrhage seen. Bones/Soft Tissues: Mild degenerative changes are seen in the spine. IMPRESSION: Hepatic steatosis is seen. Small hiatal hernia is also noted. Diverticulosis coli without no evidence for diverticulitis bowel wall thickening versus incomplete distension is seen in the colon. Bladder wall appears slightly thickened cystitis is not excluded. Interpreted by: Vitor Villafana DO Signed by: Vitor Villafana DO 11/23/23 Final result Normal [facility] CTA CHEST W WO CONTRASTon CTA CHEST W WO CONTRAST EXAMINATION: CTA OF THE CHEST WITH AND WITHOUT CONTRAST 11/23/2023 12:28 pm TECHNIQUE: CTA of the chest was performed before and after the administration of intravenous contrast. Multiplanar reformatted images are provided for review. MIP images are provided for review. Automated exposure control, iterative reconstruction, and/or weight based adjustment of the mA/kV was utilized to reduce the radiation dose to as low as reasonably achievable. COMPARISON: None. HISTORY: ORDERING SYSTEM PROVIDED HISTORY: syncope, pe TECHNOLOGIST PROVIDED HISTORY: Reason for exam:->syncope, pe Additional Contrast?->1 What reading provider will be dictating this exam?->CRC FINDINGS: Pulmonary Arteries: Pulmonary arteries are adequately opacified for evaluation. No evidence of intraluminal filling defect to suggest pulmonary embolism. Main pulmonary artery is normal in caliber. Mediastinum: No evidence of mediastinal lymphadenopathy. The heart and pericardium demonstrate no acute abnormality. 3.9 cm aneurysmal dilatation of the ascending aorta. Small hiatal hernia. Lungs/pleura: The lungs are without acute process. No focal consolidation or pulmonary edema. No evidence of pleural effusion or pneumothorax. Upper Abdomen: Elevated right hemidiaphragm. Advanced hepatic steatosis. Soft Tissues/Bones: No acute bone or soft tissue abnormality. IMPRESSION: 1. No evidence of pulmonary embolism or acute pulmonary abnormality. 2. 3.9 cm aneurysmal dilatation of the ascending aorta. 3. Advanced hepatic steatosis. 4. Small hiatal hernia. Interpreted by: Renaldo Smith MD Signed by: Renaldo Smith MD 11/23/23 Final result Normal [facility] Comprehensive Metabolic Pane mak 11-23-2023 Albumin [Mass/Vol] 3.9 g/dL Normal 3.5-4.6 [facility] Comment on above: Order Comment: CALL [facility]ED tel. [phone],K results called to and read back by Eyad Feldman, 11/23/2023 11:50, by ARMIN Performed By: #### C BCWD #### [facility] [address] [place] [address] ALP [Catalytic activity/Vol] 88 U/L Normal 40-130 [facility] Comment on above: Order Comment: CALL Podn LCED tel. [phone],K results called to and read back by Eyad Feldman, 11/23/2023 11:50, by ARMIN Performed By: #### C BCWD #### [facility] [address] [place] [address] ALT [Catalytic activity/Vol] 48 U/L Critically high 0-33 [facility] Comment on above: Order Comment: CALL [facility] tel. [phone],K results called to and read back by Eyad Feldman, 11/23/2023 11:50, by ARMIN Performed By: #### C BCWD #### [facility] [address] [place] [address] Anion gap [Moles/Vol] 28 mmol/L Critically high 9-15 [facility] Comment on above: Order Comment: CALL [facility] tel. [phone],K results called to and read back by Eyad Feldman, 11/23/2023 11:50, by ARMIN Performed By: #### C BCWD #### [facility] [address] [place] [address] AST [Catalytic activity/Vol] 92 U/L Critically high 0-35 [facility] Comment on above: Order Comment: CALL [facility] tel. [phone],K results called to and read back by Eyad Feldman, 11/23/2023 11:50, by ARMIN Performed By: #### C BCWD #### [facility] [address] [place] [address] Bilirubin [Mass/Vol] 1.0 mg/dL Critically high 0.2-0.7 [facility] Comment on above: Order Comment: CALL [facility] tel. [phone],K results called to and read back by Eyad Feldman, 11/23/2023 11:50, by ARMIN Performed By: #### C BCWD #### [facility] [address] [place] [address] Calcium [Mass/Vol] 9.2 mg/dL Normal 8.5-9.9 [facility] Comment on above: Order Comment: CALL [facility] tel. [phone],K results called to and read back by Eyad Feldman, 11/23/2023 11:50, by ARMIN Performed By: #### C BCWD #### [facility] [address] [place] [address] Chloride [Moles/Vol] 86 mmol/L Low 95-107 [facility] Comment on above: Order Comment: CALL [facility] tel. [phone],K results called to and read back by Eyad Feldman, 11/23/2023 11:50, by ARMIN Performed By: #### C BCWD #### [facility] [address] [place] [address] CO2 [Moles/Vol] 20 mmol/L Normal 20-31 [facility] Comment on above: Order Comment: CALL [facility] tel. [phone],K results called to and read back by Eyad Feldman, 11/23/2023 11:50, by ARMIN Performed By: #### C BCWD #### [facility] [address] [place] [address] Creatinine [Mass/Vol] 1.31 mg/dL Critically high 0.50-0.90 [facility] Comment on above: Order Comment: CALL [facility] tel. [phone],K results called to and read back by Eyad Feldman, 11/23/2023 11:50, by ARMIN Performed By: #### C BCWD #### [facility] [address] [place] [address] GFR 48.6 Low >60 [facility] Comment on above: Order Comment: CALL [facility] tel. [phone],K results called to and read back by Eyad Feldman, 11/23/2023 11:50, by ARMIN Result Comment: Pedi atric calculator link https://www.kidney.org/professionals/kdoqi/gfr_calculatorped Effective Jan 20, 2022 These results are not intended for use in patients <18 years of age. eGFR results are calculated without a race factor using the 2020 CKD-EPI equation. Careful clinical correlation is recommended, particularly when comparing to results calculated using previous equations. The CKD-EPI equation is less accurate in patients with extremes of muscle mass, extra-renal metabolism of creatinine, excessive creatinine ingestion, or following therapy that affects renal tubular secretion. Performed By: #### C BCWD #### [facility] [address] [place] [address] Globulin (S) [Mass/Vol] 3.2 g/dL Normal 2.3-3.5 [facility] Comment on above: Order Comment: CALL [facility] tel. [phone],K results called to and read back by Eyad Feldman, 11/23/2023 11:50, by ARMIN Performed By: #### C BCWD #### [facility] [address] [place] [address] Glucose [Mass/Vol] 125 mg/dL Critically high 70-99 [facility] Comment on above: Order Comment: CALL [facility] tel. [phone],K results called to and read back by Eyad Feldman, 11/23/2023 11:50, by ARMIN Performed By: #### C BCWD #### [facility] [address] [place] [address] Potassium [Moles/Vol] 2.7 mmol/L Critically low 3.4-4.9 [facility] Comment on above: Order Comment: CALL [facility] tel. [phone],K results called to and read back by Eyad Feldman, 11/23/2023 11:50, by ARMIN Performed By: #### C BCWD #### [facility] [address] [place] [address] Protein [Mass/Vol] 7.1 g/dL Normal 6.3-8.0 [facility] Comment on above: Order Comment: CALL [facility] tel. [phone],K results called to and read back by Eyad Feldman, 11/23/2023 11:50, by ARMIN Performed By: #### C BCWD #### [facility] [address] [place] [address] Sodium [Moles/Vol] 134 mmol/L Low 135-144 [facility] Comment on above: Order Comment: CALL [facility] tel. [phone],K results called to and read back by Eyad Feldman, 11/23/2023 11:50, by ARMIN Performed By: #### C BCWD #### [facility] [address] [place] [address] Urea nitrogen [Mass/Vol] 17 mg/dL Normal 6-20 [facility] Comment on above: Order Comment: CALL [facility] tel. [phone],K results called to and read back by Eyad Feldman, 11/23/2023 11:50, by ARMIN Performed By: #### C BCWD #### [facility] [address] [place] [address] Culture, Bloodon 11-23-2023 Microscopic examination of blood, culture ORDER#: [id number] ORDERED BY: ERNANDEZ SOURCE: Blood COLLECTED: 11/23/23 14:16 ANTIBIOTICS AT ROGELIO.: RECEIVED : 11/23/23 14:18 Culture, Blood FINAL 11/28/23 16:15 No growth after 5 days of incubation. [facility] Comment on above: Performed By: #### C XBL #### [facility] [address] [place] [id number] Culture, Blood 2on Culture, Blood 2 ORDER#: [id number] ORDERED BY: ERNANDEZ SOURCE: Blood Blood COLLECTED: 11/23/23 14:16 ANTIBIOTICS AT ROGELIO.: RECEIVED : 11/23/23 14:18 Culture, Blood 2 FINAL 11/28/23 16:15 No growth after 5 days of incubation. [facility] Comment on above: Performed By: #### C XBL2 #### [facility] [address] [place] [address] Culture, Urineon 11-23-2023 Culture, Urine ORDER#: [id number] ORDERED BY: ERNANDEZ SOURCE: Urine Clean Catch COLLECTED: 11/23/23 10:30 ANTIBIOTICS AT ROGELIO.: RECEIVED : 11/23/23 13:58 Culture, Urine PRELIM 11/27/23 10:32 [place] [address] Escherichia coli >100,000 CFU/ML Identification by MALDI-TOF [facility] Comment on above: Performed By: #### C BCWD #### [facility] [address] [place] [address] D-Dimer Quanton 11-23-2023 D-Dimer Quant 1.62 mg/L FEU Critically high 0.00-0.50 [facility] Comment on above: Order Comment: CALL [facility]ED tel. [phone], DIMER results called to and read back by DR MERIDA, 11/23/2023 11:55, by JAMES Result Comment: VTE (DVT or PE) cut-off = 0.50 mg/L FEU Performed By: #### D TON #### [facility] [address] [place] [address] High Sensitivity Troponin To n 11-23-2023 High Sensitivity Troponin T 12 ng/L Normal 0-19 [facility] Comment on above: Result Comment: High Sensitivity Troponin values cannot be compared with other Troponin methodologies. Performed By: #### T RP5 #### [facility] [address] [place] [address] High Sensitivity Troponin T 14 ng/L Normal 0-19 [facility] Comment on above: Result Comment: High Sensitivity Troponin values cannot be compared with other Troponin methodologies. Performed By: #### C BCWD #### [facility] [address] [place] [address] Lipaseon 11-23-2023 Lipase [Catalytic activity/Vol] 38 U/L Normal 12-95 [facility] Comment on above: Order Comment: CALL [facility] tel. [phone],K results called to and read back by Eyad Feldman, 11/23/2023 11:50, by ARMIN Performed By: #### C BCWD #### [facility] [address] [place] [address] Magnesiumon 11-23-2023 Magnesium [Mass/Vol] 1.6 mg/dL Low 1.7-2.4 [facility] Comment on above: Order Comment: CALL [facility] tel. [phone],K results called to and read back by Eyad Feldman, 11/23/2023 11:50, by ARMIN Performed By: #### C BCWD #### [facility] [address] [place] [address] Partial Thromboplastin Timeo n 11-23-2023 aPTT Coag (Bld) [Time] 26.3 s Normal 24.4-36.8 [facility] Comment on above: Result Comment: Effe ctive 02/22/2020: Heparin Therapeutic Range: 64.0 ? 98.0 seconds. Performed By: #### P TT #### [facility] [address] [place] [address] Prothrombin Timeon INR Coag (PPP) [Relative time] 1.0 {INR} Normal [facility] Comment on above: Performed By: #### P T #### [facility] [address] [place] [address] PT Coag (PPP) [Time] 13.3 s Normal 12.3-14.9 [facility] Comment on above: Performed By: #### P T #### [facility] [address] [place] [address] UR Drugs of Abuse Panelon Drug Screen Comment see below Normal [facility] Comment on above: Result Comment: This method is a screening test to detect only these drug classes as part of a medical workup. Confirmatory testing by another method should be ordered if clinically indicated. Performed By: #### U DRGS #### [facility] [address] [place] [address] UR Benzo Screen Positive Abnormal Negative < [facility] Comment on above: Performed By: #### U DRGS #### [facility] [address] [place] [address] UR Amphetamines Screen Negative Normal Negative < [facility] Comment on above: Performed By: #### U DRGS #### [facility] [address] [place] [address] UR Barbiturates Screen Negative Normal Negative < [facility] Comment on above: Performed By: #### U DRGS #### [facility] [address] [place] [address] UR Cannabinoids Screen Negative Normal Negative < [facility] Comment on above: Performed By: #### U DRGS #### [facility] [address] [place] [address] UR Cocaine Screen Negative Normal Negative < [facility] Comment on above: Performed By: #### U DRGS #### [facility] [address] [place] [address] UR Fentanyl Screen Negative Normal Negative < [facility] Comment on above: Performed By: #### U DRGS #### [facility] [address] [place] [address] UR Methadone Screen Negative Normal Negative < [facility] Comment on above: Performed By: #### U DRGS #### [facility] [address] [place] [address] UR Opiates Screen Negative Normal Negative < [facility] Comment on above: Performed By: #### U DRGS #### [facility] [address] [place] [address] UR Oxycodone Screen Negative Normal Negative < [facility] Comment on above: Performed By: #### U DRGS #### [facility] [address] [place] [address] UR PCP Screen Negative Normal Negative < [facility] Comment on above: Performed By: #### U DRGS #### [facility] [address] [place] [address] UR Propoxyphene Screen Negative Normal Negative < [facility] Comment on above: Performed By: #### U DRGS #### [facility] [address] [place] [address] Urinalysis, reflex to cultur josr 11-23-2023 Urine Reflexed to Culture Yes Normal [facility] Comment on above: Performed By: #### U AR #### [facility] [address] [place] [address] Bilirubin Ql (U) Negative Normal Negative [facility] Comment on above: Performed By: #### U AR #### [facility] [address] [place] [address] Clarity (U) CLOUDY Abnormal Clear [facility] Comment on above: Performed By: #### U AR #### [facility] [address] [place] [address] Color (U) Yellow Normal Straw/[place] [facility] Comment on above: Performed By: #### U AR #### [facility] [address] [place] [address] Glucose Ql (U) Negative Normal Negative [facility] Comment on above: Performed By: #### U AR #### [facility] [address] [place] [address] Hemoglobin Ql (U) TRACE Abnormal Negative [facility] Comment on above: Performed By: #### U AR #### [facility] [address] [place] [address] Ketones Ql (U) TRACE Abnormal Negative [facility] Comment on above: Performed By: #### U AR #### [facility] [address] [place] [address] Leukocyte esterase Test strip Ql (U) MODERATE Abnormal Negative [facility] Comment on above: Performed By: #### U AR #### [facility] [address] [place] [address] Nitrite Ql (U) Positive Abnormal Negative [facility] Comment on above: Performed By: #### U AR #### [facility] [address] [place] [address] pH (U) 5.5 [pH] Normal 5.0-9.0 [facility] Comment on above: Performed By: #### U AR #### [facility] [address] [place] [address] Protein Ql (U) TRACE Abnormal Negative [facility] Comment on above: Performed By: #### U AR #### [facility] [address] [place] [address] Specific gravity (U) [Rel density] 1.019 Normal 1.005-1.03 [facility] Comment on above: Performed By: #### U AR #### [facility] [address] [place] [address] Urobilinogen Qn (U) 0.2 {Ann'U}/dL Normal < 2.0 [facility] Comment on above: Performed By: #### U AR #### [facility] [address] [place] [address] Urine Microscopicon 11-23-19 24 Urine Bacteria MANY Abnormal Negative [facility] Comment on above: Performed By: #### U MT #### [facility] [address] [place] [address] Urine Epithelial Cells Auto 3-5 Normal 0-5 [facility] Comment on above: Performed By: #### U MT #### [facility] [address] [place] [address] Urine Hyaline Casts Auto 3-5 Normal 0-5 [facility] Comment on above: Performed By: #### U MT #### [facility] [address] [place] [address] Urine RBC Auto 6-10 Abnormal 0-5 [facility] Comment on above: Performed By: #### U MT #### [facility] [address] [place] [address] Urine WBC Auto >100 Critically high 0-5 [facility] Comment on above: Performed By: #### U MT #### [facility] [address] [place] [address] XR CHEST PORTABLEon 11-23-19 24 XR CHEST PORTABLE EXAMINATION: ONE XRAY VIEW OF THE CHEST 11/23/2023 10:20 am COMPARISON: None. HISTORY: ORDERING SYSTEM PROVIDED HISTORY: syncope TECHNOLOGIST PROVIDED HISTORY: Reason for exam:->syncope What reading provider will be dictating this exam?->CRC FINDINGS: The lungs are without acute focal process. There is no effusion or pneumothorax. The cardiomediastinal silhouette is without acute process. The osseous structures are without acute process. IMPRESSION: No acute process. Interpreted by: Renaldo Smith MD Signed by: Renaldo Smith MD 11/23/23 Final result Normal [facility] CNPN Telephone (AGPSYCWM) -------- EMELY CLEVELAND ([id number]) 1970 F Date Time Provider Department 10/26/23 DANIEL LEON AGPSYCWM During your visit today, we recorded the following information about you: Allergies As of Date: 10/26/2023 Noted Allergy Reaction SEASONAL ALLERGIES 11/05/2012 14 - Other: See Comments Comments: Congestion Date Reviewed: 10/16/2023 Reviewed by: Sonja Padilla, RN - Fully Assessed Reason for Visit: Appointment [186] Cmt: Left voice mail for Medical Assessment at [facility]. cc Prescriptions as of 10/26/2023 - escitalopram oxalate (LEXAPRO) 20 mg tablet Take 1 tablet by mouth once daily. - acamprosate DR (CAMPRAL) 333 mg tablet Take 3 tablets by mouth two times a day. - tiZANidine HCl (ZANAFLEX) 4 mg capsule Take 4 mg by mouth three times a day as needed for muscle spasm. - omeprazole (PRILOSEC) 40 mg capsule TAKE ONE CAPSULE BY MOUTH EVERY DAY before breakfast for 4 weeks then take 1 capsule daily as needed - cholecalciferol (VITAMIN D3) 1,000 unit tab tablet Take by mouth once daily. - Cetirizine 10 mg cap Take by mouth as needed. - clobetasol (TEMOVATE) 0.05 % ointment Apply to affected area 1-2 times per week - fluticasone (FLONASE) 50 mcg/actuation nasal spray Use 1 [place] in each nostril as needed. - SUMATRIPTAN SUCCINATE (IMITREX ORAL) Take by mouth as needed. - bisoprol/hydrochlorothia zide(ZIAC 2.5 MG-6.25 MG TAB) Take one(1) tablet daily. Problem List As Of Date 10/26/2023 Noted Resolved S/P LASIK surgery of both eyes [Z98.890] 03/22/2014 02/14/2016 Morbid obesity due to excess calories (HCC) [E6*02/14/2016 Renal cyst [N28.1] 03/05/2018 Acute cystitis with hematuria [N30.01] 03/05/2018 Alcoholism (HCC) [F10.20] 03/19/2023 Ascending aorta dilatation (HCC) [I77.810] 10/17/2022 TSH elevation [R79.89] 10/17/2022 HTN (hypertension) [I10] 10/17/2022 Gastroesophageal reflux disease [K21.9] 10/15/2023 Migraine headache [G43.909] 10/15/2023 Obstructive sleep apnea syndrome [G47.33] 10/15/2023 Pure hypercholesterolemia [E78.00] 06/18/2011 Fatty liver [K76.0] 10/17/2022 Thrombocytopenia (HCC) [D69.6] 09/28/2023 Alcohol withdrawal (HCC) [F10.939] 10/15/2023 10/20/2023 Lactic acidosis [E87.20] 10/15/2023 10/20/2023 Elevated LFTs [R79.89] 10/15/2023 Elevated lipase [R74.8] 10/15/2023 HLD (hyperlipidemia) [E78.5] 10/15/2023 Anxiety [F41.9] 10/15/2023 Depression [F32.A] 10/15/2023 Syncope and collapse [R55] 10/15/2023 Seizure due to alcohol withdrawal, uncomplicate*10/15/2023 MDD (major depressive disorder), recurrent epis*10/16/2023 Malnutrition of moderate degree (HCC) [E44.0] 10/16/2023 Alcohol use disorder [F10.90] 10/19/2023 Encounter Status:Closed by ERMIAS MAGANA on 10/26/23 Normal [facility] ETHYL GLUCUR UR CONFon 10-25 ETHYL GLUCUR UR CONF >995[address] Normal [facility] Comment on above: Order Comment: Speci men Type: URINE SPECIMENOrdering Facility: [facility] Address: [address] [place] [address] Performed By: #### U EGQNT ####[facility] [id number] [place] [address] ETHYL SULFATE UR CONF 3542 ng/mL Normal [facility] Comment on above: Order Comment: Speci men Type: URINE SPECIMENOrdering Facility: [facility] Address: [address] [place], [place] [id number] Result Comment: INTE RPRETIVE INFORMATION: Ethyl Glucuronide and Ethyl Sulfate, Urine Quantitative Ethyl glucuronide (EtG) and Ethyl Sulfate (EtS) are direct metabolites of ethanol. EtG and EtS can be detected up to 80 hours in urine after ethanol ingestion and the presence of both metabolites can be used as markers for recent alcohol use. The presence of EtG, alone in urine, is not a unique marker of ethanol ingestion. False positive EtG results can occur from microbial formation or from fermentation and false negative EtG results can occur from bacterial degradation. The analytical measurement range is 100-10,000 ng/mL. This test was developed and its performance characteristics determined by [facility]. It has not been cleared or approved by the [place] Food and Drug Administration. This test was performed in a CLIA certified laboratory and is intended for clinical purposes. Performed By: [facility] [address] [place] [address] Registration Officer: Wellington Gonzales MD, PhD CLIA Number: [id number] Performed By: #### U EGQNT ####[facility] [id number] [place] [address] ETHYL GLUCURONIDE UR SCR 0 10-26-2023 Ethyl glucuronide Screen Ql (U) Sent for confirmation Abnormal Negative [facility] Comment on above: Order Comment: Speci men Type: URINE SPECIMENOrdering Facility: [facility] Address: [address] [place] [address] Result Comment: Scre en cutoff concentration: 500 ng/mL ethyl glucuronide. Immunoassay screen only. Cross reactivity with other substances can occur with immunoassay screening. Detection of any drug(s) in this panel is presumptive only. These tests are for medical purposes only and should not be used for compliance monitoring, legal, or forensic use. This test was developed and its performance characteristics determined by [place] [place] ([facility]). It has not been cleared or approved by the FDA. [facility] is regulated under CLIA as qualified to perform high-complexity testing. This test is used for clinical purposes. It should not be regarded as investigational or for research. Performed By: #### U EGLUC ####[facility] LABCLIA [id number] [place] [address] [place] PAIN PANEL, UR QUANTon 10-25 1-Pzninbhlxw-1,5-Dim ethyl-3,3-Diphenylpy rrolidine (EDDP) Confirm (U) [Mass/Vol] <6 Normal <6 [facility] Comment on above: Order Comment: Speci men Type: URINE SPECIMENOrdering Facility: [facility] Address: [address] [place] [address] Result Comment: EDDP is a metabolite of methadone. Performed By: #### L [id number] ####[facility] LABIA [id number] [address] [place] 6-Monoacetylmorphine (6-CIERRA) (U) [Mass/Vol] <5 Normal <5 [facility] Comment on above: Order Comment: Speci men Type: URINE SPECIMENOrdering Facility: [facility] Address: [address] [place] [address] Result Comment: 6-MA M (6-monoacetylmorphine, also known as 6-acetylmorphine) is a unique metabolite of heroin. Presence of 6-CIERRA indicates use of heroin. 6-CIERRA is further metabolized to morphine and absence of 6-CIERRA does not rule out the use of heroin. Performed By: #### L [id number] ####[facility] LABIA [id number] [place] [address] [place] Amphetamine Confirm (U) [Mass/Vol] <5 Normal <5 [facility] Comment on above: Order Comment: Speci men Type: URINE SPECIMENOrdering Facility: [facility] Address: [address] [place] [address] Performed By: #### L [id number] ####[facility] LABCLIA [id number] [place] [address] [place] Benzoylecgonine Confirm (U) [Mass/Vol] <24 Normal <24 [facility] Comment on above: Order Comment: Speci men Type: URINE SPECIMENOrdering Facility: [facility] Address: [address] [place] [address] Result Comment: Abel oylecgonine is a metabolite of cocaine. Performed By: #### L [id number] ####[facility] LABIA [id number] [place] [address] [place] Buprenorphine (U) [Mass/Vol] <20 Normal <20 [facility] Comment on above: Order Comment: Speci men Type: URINE SPECIMENOrdering Facility: [facility] Address: [address] [place] [address] Performed By: #### L [id number] ####[facility] [id number] [place] [address] [place] Cannabinoids Confirm (U) [Mass/Vol] <16 Normal <16 [facility] Comment on above: Order Comment: Speci men Type: URINE SPECIMENOrdering Facility: [facility] Address: [address] [place] [address] Result Comment: Tetr ahydrocannabinol carboxylic acid (THCA) is a metabolite of etzmx-7-tqvqcsuupjncobxgzlfn which is the main active component of marijuana. Performed By: #### L [id number] ####[facility] [id number] [place] [address] [place] Codeine Confirm (U) [Mass/Vol] <11 Normal <11 [facility] Comment on above: Order Comment: Speci men Type: URINE SPECIMENOrdering Facility: [facility] Address: [address] [place] [address] Performed By: #### L [id number] ####[facility] LABIA [id number] [place] [address] [place] Dihydrocodeine Confirm (U) [Mass/Vol] <5 Normal <5 [facility] Comment on above: Order Comment: Speci men Type: URINE SPECIMENOrdering Facility: [facility] Address: [address] [place] [address] Performed By: #### L [id number] ####[facility] LABIA [id number] [place] [address] [place] fentaNYL Confirm (U) [Mass/Vol] <6 Normal <6 [facility] Comment on above: Order Comment: Speci men Type: URINE SPECIMENOrdering Facility: [facility] Address: [address] [place] [address] Performed By: #### L [id number] ####[facility] [id number] [place] [address] [place] HYDROcodone Confirm (U) [Mass/Vol] <8 Normal <8 [facility] Comment on above: Order Comment: Speci men Type: URINE SPECIMENOrdering Facility: [facility] Address: [address] [place] [address] Result Comment: Hydr ocodone is a metabolite of dihydrocodeine. Performed By: #### L [id number] ####[facility] [id number] [place] [address] [place] HYDROmorphone Confirm (U) [Mass/Vol] <5 Normal <5 [facility] Comment on above: Order Comment: Speci men Type: URINE SPECIMENOrdering Facility: [facility] Address: [address] [place] [address] Result Comment: Hydr omorphone is a metabolite of hydrocodone. Performed By: #### L [id number] ####[facility] LABIA [id number] [place] [address] [place] Methadone Confirm (U) [Mass/Vol] <16 Normal <16 [facility] Comment on above: Order Comment: Speci men Type: URINE SPECIMENOrdering Facility: [facility] Address: [address] [place] [address] Performed By: #### L [id number] ####[facility] LABIA [id number] [place] [address] [place] Methamphetamine Confirm (U) [Mass/Vol] <8 Normal <8 [facility] Comment on above: Order Comment: Speci men Type: URINE SPECIMENOrdering Facility: [facility] Address: [address] [place] [address] Performed By: #### L [id number] ####[facility] LABCLIA [id number] [place] [address] [place] Morphine Confirm (U) [Mass/Vol] <10 Normal <10 [facility] Comment on above: Order Comment: Speci men Type: URINE SPECIMENOrdering Facility: [facility] Address: [address] [place] [address] Result Comment: Morp azalia is a metabolite of codeine and heroin. Performed By: #### L [id number] ####[facility] LABCLIA [id number] [address] [place] Norbuprenorphine (U) [Mass/Vol] <20 Normal <20 [facility] Comment on above: Order Comment: Speci men Type: URINE SPECIMENOrdering Facility: [facility] Address: [address] [place] [address] Result Comment: Norb uprenorphine is the primary active metabolite of buprenorphine. Performed By: #### L [id number] ####[facility] LABIA [id number] [place] [address] [place] Norfentanyl Confirm (U) [Mass/Vol] <6 Normal <6 [facility] Comment on above: Order Comment: Speci men Type: URINE SPECIMENOrdering Facility: [facility] Address: [address] [place] [address] Result Comment: Norf entanyl is a metabolite of fentanyl. Performed By: #### L [id number] ####[facility] LABCLIA [id number] [place] [address] [place] Nortramadol (U) [Mass/Vol] <20 Normal <20 [facility] Comment on above: Order Comment: Speci men Type: URINE SPECIMENOrdering Facility: [facility] Address: [address] [place] [address] Result Comment: Desm ethyltramadol is a metabolite of tramadol. Performed By: #### L [id number] ####[facility] LABIA [id number] [place] [address] [place] NOTE,UR PAIN BERNAL Normal [facility] Comment on above: Order Comment: Speci men Type: URINE SPECIMENOrdering Facility: [facility] Address: [address] [place] [address] Result Comment: This test is for medical use only. This test was developed and its performance characteristics determined by [place] [place] ([facility]). It has not been cleared or approved by the FDA. [facility] is regulated under CLIA as qualified to perform high-complexity testing. This test is used for clinical purposes. It should not be regarded as investigational or for research. Performed By: #### L [id number] ####[facility] LABIA [id number] [place] [address] [place] oxyCODONE Confirm (U) [Mass/Vol] <10 Normal <10 [facility] Comment on above: Order Comment: Speci men Type: URINE SPECIMENOrdering Facility: [facility] Address: [address] [place] [address] Performed By: #### L [id number] ####[facility] LABIA [id number] [place] [address] [place] oxyMORphone Confirm (U) [Mass/Vol] <5 Normal <5 [facility] Comment on above: Order Comment: Speci men Type: URINE SPECIMENOrdering Facility: [facility] Address: [address] [place] [address] Result Comment: Oxym orphone is a metabolite of oxycodone. Performed By: #### L [id number] ####[facility] LABIA [id number] [place] [address] [place] traMADol Confirm (U) [Mass/Vol] <25 Normal <25 [facility] Comment on above: Order Comment: Speci men Type: URINE SPECIMENOrdering Facility: [facility] Address: [address] [place] [address] Performed By: #### L [id number] ####[facility] LABCLIA [id number] [place] [address] [place] SPECIMEN VALIDITY, URINEon 0 10-26-2023 CHROMATE,URINE <10 Normal <50 [facility] Comment on above: Order Comment: Speci men Type: URINE SPECIMENOrdering Facility: [facility] Address: [address] [place] [address] Performed By: #### L [id number] ####[facility] LABCLIA [id number] [place] [address] [place] CREATININE,URINE 227.8 mg/dL Normal 20.0-300.0 [facility] Comment on above: Order Comment: Speci men Type: URINE SPECIMENOrdering Facility: [facility] Address: [address] [place] [address] Performed By: #### L [id number] ####[facility] LABCLIA [id number] [place] [address] [place] NITRITES,URINE 77 mg/L Normal <500 [facility] Comment on above: Order Comment: Speci men Type: URINE SPECIMENOrdering Facility: [facility] Address: [address] [place] [address] Performed By: #### L [id number] ####[facility] LABCLIA [id number] [place] [address] [place] OXIDANTS,URINE <38 Normal <200 [facility] Comment on above: Order Comment: Speci men Type: URINE SPECIMENOrdering Facility: [facility] Address: [address] [place] [address] Performed By: #### L [id number] ####[facility] LABCLIA [id number] [place] [address] [place] pH (U) 5.5 [pH] Normal 4.5-8.0 [facility] Comment on above: Order Comment: Speci men Type: URINE SPECIMENOrdering Facility: [facility] Address: [address] [place] [address] Performed By: #### L [id number] ####[facility] LABCLIA [id number] [place] [address] [place] SPEC GRAVITY,UR 1.015 Normal 1.003-1.035 [facility] Comment on above: Order Comment: Speci men Type: URINE SPECIMENOrdering Facility: [facility] Address: [address] [place] [address] Performed By: #### L [id number] ####[facility] LABCLIA [id number] [address] [place] SPECIMEN VALIDITY QUALITY Specimen quality results within acceptable limits Normal [facility] Comment on above: Order Comment: Speci men Type: URINE SPECIMENOrdering Facility: [facility] Address: [address] [place] [address] Performed By: #### L [id number] ####[facility] LABIA [id number] [place] [address] [place] TOXICOLOGY SCREEN, ROUTINE U RINEon 10-26-2023 Amphetamines Confirm (U) [Mass/Vol] Negative Normal Negative [facility] Comment on above: Order Comment: Speci men Type: URINE SPECIMENOrdering Facility: [facility] Address: [address] [place] [address] Result Comment: Cuto ff threshold at 1000 ng/mL. Performed By: #### U TOX2 ####[facility] LABORATORYCLIA [id number] [facility] [address] [place] BARBITURATES, URINE Negative Normal Negative [facility] Comment on above: Order Comment: Speci men Type: URINE SPECIMENOrdering Facility: [facility] Address: [address] [place] [address] Result Comment: Cuto ff threshold at 200 ng/mL. Performed By: #### U TOX2 ####[facility]ENTER[facility] [id number] [place] [address] [place] BENZODIAZEPINES, UR Positive Abnormal Negative [facility] Comment on above: Order Comment: Speci men Type: URINE SPECIMENOrdering Facility: [facility] Address: [address] [place] [address] Result Comment: Cuto ff threshold at 200 ng/mL. Performed By: #### U TOX2 ####[facility]ENTER[facility] [id number] [place] [address] [place] Cannabinoids Screen Ql (U) Negative Normal Negative [facility] Comment on above: Order Comment: Speci men Type: URINE SPECIMENOrdering Facility: [facility] Address: [address] [place] [address] Result Comment: Cuto ff threshold at 50 ng/mL. Performed By: #### U TOX2 ####[facility]ENTER[facility] [id number] [place] [address] [place] Cocaine Ql (U) Negative Normal Negative [facility] Comment on above: Order Comment: Speci men Type: URINE SPECIMENOrdering Facility: [facility] Address: [address] [place] [address] Result Comment: Cuto ff threshold at 300 ng/mL. Performed By: #### U TOX2 ####[facility] LABORATORYIA [id number] [place] [address] [place] Ethanol (U) [Mass/Vol] <11 Normal <11 [facility] Comment on above: Order Comment: Speci men Type: URINE SPECIMENOrdering Facility: [facility] Address: [address] [place] [address] Performed By: #### U TOX2 ####[facility]ORATORYIA [id number] [place] [id number] [place] Opiates Screen Ql (U) Negative Normal Negative [facility] Comment on above: Order Comment: Speci men Type: URINE SPECIMENOrdering Facility: [facility] Address: [address] [place] [address] Result Comment: Cuto ff threshold at 300 ng/mL. Performed By: #### U TOX2 ####[facility]ORATORYIA [id number] [address] oxyCODONE cutoff Screen (U) [Mass/Vol] Negative Normal Negative [facility] Comment on above: Order Comment: Speci men Type: URINE SPECIMENOrdering Facility: [facility] Address: [address] [place] [address] Result Comment: Cuto ff threshold at 100 ng/mL. Performed By: #### U TOX2 ####[facility] [id number] [address] Phencyclidine Ql (U) Negative Normal Negative [facility] Comment on above: Order Comment: Speci men Type: URINE SPECIMENOrdering Facility: [facility] Address: [address] [place] [address] Result Comment: Cuto ff threshold at 25 ng/mL. Performed By: #### U TOX2 ####[facility] [id number] [address] OF [facility] CASE MANAGEMon 10-20-2023 CASE MANAGEM HNO ID: [id number] Author: JANEY ALBRECHT LISW Service: ? Author Type: Associate Editor Type: Care Mgt Progress Note Filed: 10/20/2023 14:14 Note Text: CARE MANAGEMENT DISCHARGE NOTE SERVICE DATE: October 20, 2023 SERVICE TIME: 2:11 PM Admission Date: 10/15/2023 LOS: 5 days Discharge Arrangement Discharge Arrangement: Home with Self Care Services Arranged Medical Services: Other: See Comment (IOP) Caregiver Assessment Caregiver is ready, willing and able to meet the patient's needs as recommended by the inter-professional team: No Caregiver needed Transportation Arrangements Transportation Arrangements: Car Destination: Home Handoff Communication: Handoff to: Primary Care Physician;Other Caregiver;Specialty Organ Assembler Specialty Organ Assembler Name/Phone: Bin Fuentes MD Neurology [phone] Primary Care Physician Name/Phone: Jhoan Roberto MD PCP - General Internal Medicine [phone] Other Caregiver Name/Phone: Zakia Perez MD Cardiology [phone] Additional Information: Patient is medically clear for discharge. Patient has an appointment for an assessment on 10/23/2023 for IOP. Patient reports she will get walker once discharged through [facility]/self pay. Patient reports her son in law will transport home. Patient has no other identified CM or D/C needs. Discharge Information Row Name Admission (Current) from 10/15/[address] Behavioral Health Follow-Up Appointment Specialty Behavioral Health Provider Name [facility] IOP Address Virtual Appointment Date 10/23/23 Appointment Time 8:30 am Additional Instructions Virtaul appointment in AM SIGNATURE: JADA Tomas PATIENT NAME: Emely [place] DATE: October 20, 2023 TIME: 2:11 PM CONTACT #: [phone] [facility] CASE MANAGEM HNO ID: [id number] Author: JANEY ALBRECHT LISW Service: ? Author Type: Associate Editor Type: Care Mgt Progress Note Filed: 10/20/2023 14:07 Note Text: CARE MANAGEMENT PROGRESS NOTE SERVICE DATE: 10/20/2023 SERVICE TIME: 11:39 AM LOS: 5 days Patient walker was declined by insurance. Patient has not met out of pocket deductible. [facility]CS reports walkers start at $100.00. CM met patient at bedside to discuss walker. Pt requested paper prescription for walker. Patient reports her son in law will transport home around 5pm. CM will remain available. SIGNATURE: JADA Tomas PATIENT NAME: Emely [place] DATE: October 20, 2023 TIME: 11:39 AM PAGER/CONTACT #: [phone] [facility] CBC panel Auto (Bld)on 10-19 Erythrocyte distribution width (RBC) [Ratio] 14.1 % Normal 11.5-15.[address] [facility] Comment on above: Order Comment: Speci men Type: BLOOD SPECIMENOrdering Facility: [facility] Address: [address] [place] [address] Performed By: #### 5 8410-2 ####[facility] [id number] [address] [place], [place] [address] [place] Hematocrit (Bld) [Volume fraction] 29.6 % Low 36.0-46.[address] [facility] Comment on above: Order Comment: Speci men Type: BLOOD SPECIMENOrdering Facility: [facility] Address: [address] [place] [address] Performed By: #### 5 8410-2 ####[facility]ORYCLIA [id number] [address] [place] [address] [place] Hemoglobin (Bld) [Mass/Vol] 9.6 g/dL Low 11.5-15.[address] [facility] Comment on above: Order Comment: Speci men Type: BLOOD SPECIMENOrdering Facility: [facility] Address: [address] [place] [address] Performed By: #### 5 8410-2 ####[facility]ORYCLIA [id number] [place] [address] [place] MCH (RBC) [Entitic mass] 33.1 pg Normal 26.0-34.[address] [facility] Comment on above: Order Comment: Speci men Type: BLOOD SPECIMENOrdering Facility: [facility] Address: [address] [place] [address] Performed By: #### 5 8410-2 ####[facility]ORYCLIA [id number] [place] [id number] [place] MCHC (RBC) [Mass/Vol] 32.4 g/dL Normal 30.5-36.[address] [facility] Comment on above: Order Comment: Speci men Type: BLOOD SPECIMENOrdering Facility: [facility] Address: [address] [place] [address] Performed By: #### 5 8410-2 ####[facility]ORYCLIA [id number] [place] [address] [place] MCV (RBC) [Entitic vol] 102.1 fL High 80.0-100.[address] [facility] Comment on above: Order Comment: Speci men Type: BLOOD SPECIMENOrdering Facility: [facility] Address: [address] [place] [address] Performed By: #### 5 8410-2 ####[facility]ORYCLIA [id number] [address] [place], [place] [address] [place] Nucleated RBC (Bld) [#/Vol] 10*3/uL Normal <0.[address] [facility] Comment on above: Order Comment: Speci men Type: BLOOD SPECIMENOrdering Facility: [facility] Address: [address] [place] [address] Performed By: #### 5 8410-2 ####[facility]ORYCLIA [id number] [place] [address] [place] Platelet mean volume (Bld) [Entitic vol] 9.6 fL Normal 9.0-12.[address] [facility] Comment on above: Order Comment: Speci men Type: BLOOD SPECIMENOrdering Facility: [facility] Address: [address] [place] [address] Performed By: #### 5 8410-2 ####[facility]ORYCLIA [id number] [place] [address] [place] Platelets (Bld) [#/Vol] 96 10*3/uL Low 150-[address] [facility] Comment on above: Order Comment: Speci men Type: BLOOD SPECIMENOrdering Facility: [facility] Address: [address] [place] [address] Performed By: #### 5 8410-2 ####[facility]ORYCLIA [id number] [address] [place] [address] [place] RBC (Bld) [#/Vol] 2.90 10*6/uL Low 3.90-5.20 [facility] Comment on above: Order Comment: Speci men Type: BLOOD SPECIMENOrdering Facility: [facility] Address: [address] [place] [address] Performed By: #### 5 8410-2 ####[facility]ORYCLIA [id number] [place] [id number] [place] WBC (Bld) [#/Vol] 4.57 10*3/uL Normal 3.70-11.00 [facility] Comment on above: Order Comment: Speci men Type: BLOOD SPECIMENOrdering Facility: [facility] Address: [facility] [place] [address] Performed By: #### 5 8410-2 ####[facility]ORYCLIA [id number] [place] [id number] [facility] CNDSon 10-20-2023 CN[facility] HNO ID: [id number] Author: TOD WONG MD Service: Hospital Medicine Author Type: Physician Type: Discharge Summary Filed: 10/20/2023 13:48 Note Text: DISCHARGE SUMMARY PATIENT NAME: Emely [place] Code Status: Not on file Highest Readmission Risk Score: 21 The 30 day readmissions risk score is derived from an internally validated risk model which evaluates patient level characteristics, utilization history, medication orders and lab results up until the day of discharge. Patients with a score of 40 or above are considered highest risk for readmission. Specific patient level drivers will be listed at the bottom of the summary. Admission Information Admission Information ADMIT DATE: 10/15/2023 DISCHARGE DATE: 10/20/2023 MY DOCTORS AND MEDICAL TEAM: My Main Hospital Doctor: Tod Wong MD Primary Care Provider: hJoan Roberto MD My Medical Team Members: Treatment Team: Attending Provider: Tod Wong MD Consulting: Zakia Perez MD Consulting: Bin Fuentes MD MY CONDITION AT DISCHARGE: Stable REASON I WAS IN THE HOSPITAL: Syncope AND Alcohol withdrawal SUMMARY OF WHAT HAPPENED WHILE I WAS IN THE HOSPITAL: Emely Cleveland is a 53 year old female with past medical history of HTN, HLD, GERD, EtOH abuse, KENDALL on CPAP, MALENA, MDD whom presented to [facility] for evaluation of syncope and detox. Transferred to [facility] for hospitalization, admitted to medical floor for optimization. Behavioral Health consulted, withdrawal managed with Librium Taper and CIWA protocol. Recommend to increase Lexapro to 20mg and continue Acamprosate upon discharge. Neurology AND Cardiology consulted for syncopal episode. Carotid US with less than 30% bilateral blockage. EEG obtained, no acute seizure activity. Medically cleared to discharge to home. Tentatively has [facility] IOP assessment on 10/23/2023. OTHER PROBLEMS/DIAGNOSIS: Principal Problem: Syncope and collapse Active Problems: HTN (hypertension) Gastroesophageal reflux disease Obstructive sleep apnea syndrome Elevated LFTs Elevated lipase HLD (hyperlipidemia) Anxiety Depression Seizure due to alcohol withdrawal, uncomplicated (HCC) MDD (major depressive disorder), recurrent episode, mild (HCC) Malnutrition of moderate degree (HCC) Alcohol use disorder Resolved Problems: Alcohol withdrawal (HCC) Lactic acidosis OPERATIONS PERFORMED WHILE IN THE HOSPITAL: None IMPORTANT TEST/PROCEDURES: No procedures performed TEST RESULTS NOT AVAILABLE AT THIS TIME: No pending results Discharge Disposition Discharge Disposition: Home With Self Care Activity When You Leave the Hospital Resume pre-hospital activity Diet Instructions Resume your pre-hospital diet Treatment Team: Attending Provider: Tod Wong MD Consulting: Zakia Perez MD Consulting: Bin Fuentes MD Transitions of Care Critical Issues: NEW BASELINE FOR PATIENT: SPECIALIST FOLLOW-UP: [facility] IOP Assessment on 10/23/2023 [place] MEDICATION CHANGES: Lexapro increased to 20mg daily. Begin Campral 999mg twice daily. LABS AND PROCEDURES PENDING AT DISCHARGE: No pending results. FOLLOW-UP APPOINTMENTS ALREADY SCHEDULED WITH A [facility] PROVIDER: Future Appointments Date Time Provider Department Center 10/23/2023 8:30 AM Negar Michelle LISW [facility] None Discharge Information Row Name Admission (Current) from 10/15/[address] [facility] 4D Behavioral Health Follow-Up Appointment Specialty Behavioral Health Provider Name [facility] IOP Address Virtual Appointment Date 10/23/23 Appointment Time 8:30 am Additional Instructions Virtaul appointment in AM ALLERGIES Allergen Reactions Seasonal Allergies Other: See Comments Congestion DISCHARGE MEDICATION: Medication List START taking these medications acamprosate DR 333 mg tablet Commonly known as: CAMPRAL Take 3 tablets by mouth two times a day. amoxicillin-clavulanate potassium 875-125 mg per tablet Commonly known as: AUGMENTIN Take 1 tablet by mouth two times a day for 5 days. CHANGE how you take these medications escitalopram oxalate 20 mg tablet Commonly known as: LEXAPRO Take 1 tablet by mouth once daily. Start taking on: October 21, 2023 What changed: medication strength how much to take CONTINUE taking these medications Cetirizine 10 mg Cap cholecalciferol 1,000 unit Tab tablet Commonly known as: VITAMIN D3 clobetasol 0.05 % ointment Commonly known as: TEMOVATE Apply to affected area 1-2 times per week fluticasone 50 mcg/actuation nasal spray Commonly known as: FLONASE IMITREX ORAL omeprazole 40 mg capsule Commonly known as: PriLOSEC tiZANidine HCl 4 mg capsule Commonly known as: ZANAFLEX ZIAC 2.5-6.25 mg per tablet Generic drug: bisoprolol-hydroCHLOROth iazide Where to Get Your Medications These medications were sent to [facility] (more content not included)... Normal [facility] Comprehensive metabolic 2000 panelon 10-20-2023 Albumin [Mass/Vol] 3.3 g/dL Low 3.9-4.9 [facility] Comment on above: Order Comment: Ruth caldera Type: BLOOD SPECIMENOrdering Facility: [facility] Address: [address] [place] [address] Performed By: #### 2 4323-8, ####CONGREGATIONAL LABORATORYCLIA [id number] [place] [address] [place] ALP [Catalytic activity/Vol] 45 U/L Normal 34-[address] [facility] Comment on above: Order Comment: Ruth caldera Type: BLOOD SPECIMENOrdering Facility: [facility] Address: [address] [place] [address] Performed By: #### 2 4323-8, ####CONGREGATIONAL LABORATORYCLIA [id number] [place] [id number] [place] ALT [Catalytic activity/Vol] 143 U/L High 7-[address] [facility] Comment on above: Order Comment: Ruth caldera Type: BLOOD SPECIMENOrdering Facility: [facility] Address: [address] [place] [address] Performed By: #### 2 4323-8, ####CONGREGATIONAL LABORATORYCLIA [id number] [address] [place], [place] [address] [place] Anion gap [Moles/Vol] 12 mmol/L Normal 8-[address] [facility] Comment on above: Order Comment: Speci men Type: BLOOD SPECIMENOrdering Facility: [facility] Address: [address] [place] [address] Performed By: #### 2 4323-8, ####CONGREGATIONAL LABORATORYCLIA [id number] [address] [place], [place] [address] [place] AST [Catalytic activity/Vol] 233 U/L High 13-[address] [facility] Comment on above: Order Comment: Speci men Type: BLOOD SPECIMENOrdering Facility: [facility] Address: [address] [place] [address] Performed By: #### 2 4323-8, ####CONGREGATIONAL LABORATORYCLIA [id number] [address] [place] [address] [place] Bilirubin [Mass/Vol] 0.6 mg/dL Normal 0.2-1.3 [facility] Comment on above: Order Comment: Speci men Type: BLOOD SPECIMENOrdering Facility: [facility] Address: [address] [place] [address] Performed By: #### 2 4323-8, ####CONGREGATIONAL LABORATORYCLIA [id number] [place] [id number] [place] Calcium [Mass/Vol] 8.5 mg/dL Normal 8.5-10.2 [facility] Comment on above: Order Comment: Speci men Type: BLOOD SPECIMENOrdering Facility: [facility] Address: [address] [place] [address] Performed By: #### 2 4323-8, ####CONGREGATIONAL LABORATORYCLIA [id number] [place] [id number] [place] Chloride [Moles/Vol] 103 mmol/L Normal 98-107 [facility] Comment on above: Order Comment: Speci men Type: BLOOD SPECIMENOrdering Facility: [facility] Address: [address] [place] [address] Performed By: #### 2 4323-8, ####CONGREGATIONAL LABORATORYCLIA [id number] [place] [id number] [place] CO2 [Moles/Vol] 22 mmol/L Normal 22-[address] [facility] Comment on above: Order Comment: Speci men Type: BLOOD SPECIMENOrdering Facility: [facility] Address: [address] [place] [address] Performed By: #### 2 4323-8, ####CONGREGATIONAL LABORATORYCLIA [id number] [place] [id number] [place] Creatinine [Mass/Vol] 0.59 mg/dL Normal 0.58-0.[address] [facility] Comment on above: Order Comment: Speci men Type: BLOOD SPECIMENOrdering Facility: [facility] Address: [address] [place] [address] Performed By: #### 2 4323-8, ####CONGREGATIONAL LABORATORYCLIA [id number] [place] [id number] [place] Creatinine and Glomerular filtration rate.predicted panel (S/P/Bld) 108 mL/min/1.73m??? Normal >=[address] [facility] Comment on above: Order Comment: Speci men Type: BLOOD SPECIMENOrdering Facility: [facility] Address: [address] [place] [address] Result Comment: Luisa mated Glomerular Filtration Rate (eGFR) is calculated using the 2020 CKD-EPI creatinine equation. This equation utilizes serum creatinine, sex, and age as parameters. The creatinine assay has traceable calibration to isotope dilution-mass spectrometry. Refer to KDIGO guidelines for clinical interpretation. In patients with unstable renal function, e.g. those with acute kidney injury, the eGFR may not accurately reflect actual GFR. Performed By: #### 2 4323-8, 12863-3 ####CONGREGATIONAL LABORATORYCLIA [id number] [place] [id number] [place] Glucose [Mass/Vol] 90 mg/dL Normal 74-99 [facility] Comment on above: Order Comment: Speci men Type: BLOOD SPECIMENOrdering Facility: [facility] Address: [address] [place], [place] [address] Result Comment: The [place] Diabetes Association (ADA) provides guidance for cutoff values for fasting glucose and random glucose. The ADA defines fasting as no caloric intake for at least 8 hours. Fasting plasma glucose results between 100 to 125 mg/dL indicate increased risk for diabetes (prediabetes). Fasting plasma glucose results greater than or equal to 126 mg/dL meet the criteria for diagnosis of diabetes. In the absence of unequivocal hyperglycemia, results should be confirmed by repeat testing. In a patient with classic symptoms of hyperglycemia or hyperglycemic crisis, random plasma glucose results greater than or equal to 200 mg/dL meet the criteria for diagnosis of diabetes. Reference: Standards of Medical Care in Diabetes 2016, [place] [employer] Association. Diabetes Care. 2016.39(Suppl 1). Performed By: #### 2 4323-8, ####CONGREGATIONAL LABORATORYCLIA [id number] [place] [id number] [place] Potassium [Moles/Vol] 4.0 mmol/L Normal 3.7-5.[address] [facility] Comment on above: Order Comment: Ruth caldera Type: BLOOD SPECIMENOrdering Facility: [facility] Address: [address] [place] [address] Performed By: #### 2 4323-8, ####CONGREGATIONAL LABORATORYCLIA [id number] [place] [id number] [place] Protein [Mass/Vol] 5.5 g/dL Low 6.3-8.0 [facility] Comment on above: Order Comment: Joyi men Type: BLOOD SPECIMENOrdering Facility: [facility] Address: [address] [place], [place] [address] Performed By: #### 2 4323-8, ####CONGREGATIONAL LABORATORYCLIA [id number] [place] [id number] [place] Sodium [Moles/Vol] 137 mmol/L Normal 136-144 [facility] Comment on above: Order Comment: Speci men Type: BLOOD SPECIMENOrdering Facility: [facility] Address: [address] [place], [place] [address] Performed By: #### 2 4323-8, 45731-5 ####CONGREGATIONAL LABORATORYCLIA [id number] [place] [id number] [place] Urea nitrogen [Mass/Vol] 9 mg/dL Normal 7-[address] [facility] Comment on above: Order Comment: Speci men Type: BLOOD SPECIMENOrdering Facility: [facility] Address: [address] [place] [address] Performed By: #### 2 4323-8, ####CONGREGATIONAL LABORATORYCLIA [id number] [place] [id number] [place] Magnesium SerPl-mCncon 10-19 Magnesium [Mass/Vol] 1.6 mg/dL Low 1.7-2.3 [facility] Comment on above: Order Comment: Speci men Type: BLOOD SPECIMENOrdering Facility: [facility] Address: [address] [place] [address] Performed By: #### 2 4323-8, ####CONGREGATIONAL LABORATORYCLIA [id number] [place] [id number] [place] ALLIED HEALTHon 10-19-2023 ALLIED HEALTH HNO ID: [id number] Author: HIRAL DE LEON RT(Sumit) Service: Radiology Author Type: Technologist Type: Allied Health Filed: 10/19/2023 14:40 Note Text: Radiology Service Progress Note PATIENT NAME: Emely Cleveland DATE OF SERVICE: October 19, 2023 TIME: 2:40 PM PATIENT IDENTITY VERIFICATION COMPLETED USING TWO (2) IDENTIFIERS: Name and Date of confirmed by patient verbally. FALL SCREENING: Has the patient had 2 falls in the last year or 1 fall with injury or currently using an Ambulatory Assistive Device (Walker, Cane, Wheelchair, Crutches, etc.)? Inpatient: Screened on floor PATIENT GENDER DATA: Female. status: : No status: NO. PATIENT RELEVANT IMPLANT DATA REVIEWED: Not Applicable PATIENT PRESENTS WITH AN IMPLANTABLE OR ATTACHED BUSHEL WORKER: No RADIOLOGY DEPARTMENT: Ultrasound PERIPHERAL IV DATA: Not applicable SIGNED BY: Hiral De Leon RT(R) RDMS RVT October 19, 2023 2:40 PM [facility] CASE MANAGEMon 10-19-2023 CASE MANAGEM HNO ID: [id number] Author: JANEY ALBRECHT LISW Service: ? Author Type: Associate Editor Type: Care Mgt Progress Note Filed: 10/19/2023 14:35 Note Text: CARE MANAGEMENT PROGRESS NOTE SERVICE DATE: 10/19/2023 SERVICE TIME: 2:33 PM LOS: 4 days CM met patient at bedside to discuss D/C planning. Patient reports she is going to get FMLA papers faxed for hospital to complete. She reports she is okay with virtual IOP through [facility]. October 23, 2023 at 8:30 am patient will have a virtual assessment. Patient prefers 6pm-9pm virtual IOP. CM will remain available. SIGNATURE: JADA Tomas PATIENT NAME: Emely [place] DATE: October 19, 2023 TIME: 2:33 PM PAGER/CONTACT #: [phone] [facility] CBC panel Auto (Bld)on 10-18 Erythrocyte distribution width (RBC) [Ratio] 13.9 % Normal 11.5-15.[address] [facility] Comment on above: Order Comment: Ruth caldera Type: BLOOD SPECIMENOrdering Facility: [facility] Address: [address] [place] [address] Performed By: #### 5 8410-2 ####CONGREGATIONAL LABORATORYCLIA [id number] [place] [id number] [place] Hematocrit (Bld) [Volume fraction] 32.4 % Low 36.0-46.[address] [facility] Comment on above: Order Comment: Ruth caldera Type: BLOOD SPECIMENOrdering Facility: [facility] Address: [address] [place] [address] Performed By: #### 5 8410-2 ####CONGREGATIONAL LABORATORYCLIA [id number] [place] [address] [place] Hemoglobin (Bld) [Mass/Vol] 10.5 g/dL Low 11.5-15.[address] [facility] Comment on above: Order Comment: Speci men Type: BLOOD SPECIMENOrdering Facility: [facility] Address: [facility] [place] [address] Performed By: #### 5 8410-2 ####CONGREGATIONAL LABORATORYCLIA [id number] [address] [place] [address] [place] MCH (RBC) [Entitic mass] 33.3 pg Normal 26.0-34.[address] [facility] Comment on above: Order Comment: Speci men Type: BLOOD SPECIMENOrdering Facility: [facility] Address: [address] [place] [address] Performed By: #### 5 8410-2 ####CONGREGATIONAL LABORATORYCLIA [id number] [place] [address] [place] MCHC (RBC) [Mass/Vol] 32.4 g/dL Normal 30.5-36.[address] [facility] Comment on above: Order Comment: Speci men Type: BLOOD SPECIMENOrdering Facility: [facility] Address: [address] [place] [address] Performed By: #### 5 8410-2 ####CONGREGATIONAL LABORATORYCLIA [id number] [place] [address] [place] MCV (RBC) [Entitic vol] 102.9 fL High 80.0-100.[address] [facility] Comment on above: Order Comment: Speci men Type: BLOOD SPECIMENOrdering Facility: [facility] Address: [address] [place] [address] Performed By: #### 5 8410-2 ####CONGREGATIONAL LABORATORYCLIA [id number] [address] [place] Nucleated RBC (Bld) [#/Vol] 10*3/uL Normal <0.[address] [facility] Comment on above: Order Comment: Speci men Type: BLOOD SPECIMENOrdering Facility: [facility] Address: [address] [place] [address] Performed By: #### 5 8410-2 ####CONGREGATIONAL LABORATORYCLIA [id number] [address] OF [place] Platelet mean volume (Bld) [Entitic vol] 9.6 fL Normal 9.0-12.[address] [facility] Comment on above: Order Comment: Speci men Type: BLOOD SPECIMENOrdering Facility: [facility] Address: [address] [place] [address] Performed By: #### 5 8410-2 ####CONGREGATIONAL LABORATORYCLIA [id number] [address] [place] Platelets (Bld) [#/Vol] 84 10*3/uL Low 150-[address] [facility] Comment on above: Order Comment: Speci men Type: BLOOD SPECIMENOrdering Facility: [facility] Address: [address] [place] [address] Result Comment: No c lot detected. Performed By: #### 5 8410-2 ####CONGREGATIONAL LABORATORYCLIA [id number] [address] [place] RBC (Bld) [#/Vol] 3.15 10*6/uL Low 3.90-5.20 [facility] Comment on above: Order Comment: Speci men Type: BLOOD SPECIMENOrdering Facility: [facility] Address: [address] [place] [address] Performed By: #### 5 8410-2 ####CONGREGATIONAL LABORATORYCLIA [id number] [place] [id number] [place] WBC (Bld) [#/Vol] 4.24 10*3/uL Normal 3.70-11.00 [facility] Comment on above: Order Comment: Speci men Type: BLOOD SPECIMENOrdering Facility: [facility] Address: [address] [place] [address] Performed By: #### 5 8410-2 ####CONGREGATIONAL LABORATORYCLIA [id number] [place] [id number] [facility] CONSULT PROGon 10-19-2023 CONSULT PROG HNO ID: [id number] Author: DELGADILLO, OLIVIA, FLOWER PICKER.DRY CURE WORKER Service: Psychiatry Author Type: Nurse Practitioner Type: Consult Progress Note Filed: 10/19/2023 15:38 Note Text: CL FOLLOW UP - PSYCHIATRY CONSULTATION PROGRESS NOTE SERVICE DATE: October 19, 2023 SERVICE TIME: 2:43 PM Visit Type: In person PRESENT HISTORY: Pt seen in room with MS Bill and PERSONAL VEHICLE ADVISOR Renetta. Pt reports she is doing all right. Denies withdrawal sxs currently. She appears to be in no discomfort. Reports no ETOH use since 10/14. Feels detox is complete at this time. Has never withdrawn before No hx of seizures or DT's Follow up: [facility] IOP assessment on Thursday. She intends to follow up. Is tolerating meds well with no AE/SE. No cravings. No SI. Mood is euthymic. Pt is pleasant and cooperative. CIWA: 1, 0, 2. Librium taper is completed. PATIENT DATA: Generalized Anxiety Disorder Scale (MALENA-7) No data to display (0-4) minimal anxiety, (5-9) mild anxiety, (10-14) moderate anxiety, (15-21) severe anxiety Patient Health Questionnaire (PHQ-9) No data to display (0-4) minimal depression, (5-9) mild depression, (10-14) moderate depression, (15-19) moderately severe depression, (20-27) severe depression PROMIS [employer] No data to display MEDICATIONS: Current Facility-Administered Medications Medication Dose Route Frequency Provider Last Rate Last Admin amoxicillin-clavulanate potassium 875 mg tab(s) (AUGMENTIN) 875 mg ORAL BID Branden De Leon APRN.DRY CURE WORKER 875 mg at 10/19/23 0852 amLODIPine 5 mg tab(s) (NORVASC) 5 mg ORAL DAILY Rony Suarez APRN.DRY CURE WORKER 5 mg at 10/19/23 0853 escitalopram oxalate 20 mg tab(s) (LEXAPRO) 20 mg ORAL DAILY Stephanie Mejía APRN.DRY CURE WORKER 20 mg at 10/19/[address] 999 mg tab(s) (CAMPRAL) 999 mg ORAL BID Stephanie Mejía APRN.DRY CURE WORKER 999 mg at 10/19/23 0852 chlordiazePOXIDE 5 mg cap(s) (LIBRIUM) 5 mg ORAL QID Stephanie Mejía APRN.DRY CURE WORKER 5 mg at 10/19/23 0853 LORazepam 1 mg tab(s) (ATIVAN) 1 mg ORAL q 2 H PRN Stephanie Mejía APRN.DRY CURE WORKER 1 mg at 10/16/232024 Or LORazepam 2 mg (ATIVAN) 2 mg ORAL q 2 H PRN Stephanie Mejía APRN.CNP Or LORazepam 2 mg (ATIVAN) 2 mg ORAL q 1 H PRN Stephanie Mejía APRN.DRY CURE WORKER thiamine 100 mg tab(s) (VITAMIN B1) 100 mg ORAL/FEEDING TUBE TID Stephanie Mejía APRN.DRY CURE WORKER 100 mg at 10/19/23 0853 traZODone 50 mg tab(s) (DESYREL) 50 mg ORAL AT BEDTIME PRN Irene Glez APRN.CNP hydrOXYzine HCl 25 mg tab(s) (ATARAX) 25 mg ORAL QID PRN Irene Glez APRN.DRY CURE WORKER 25 mg at 10/17/23 1029 NaCl 0.9% iv flush bag 20 mL INTRAVENOUS PRN Irene Glez APRN.DRY CURE WORKER NaCl 0.9% iv infusion 75 mL/hr INTRAVENOUS CONTINUOUS Irene Glez APRN.DRY CURE WORKER 75 mL/hr at 10/17/23 1252 75 mL/hr at 10/17/23 1252 ondansetron 4 mg tab(s) (ZOFRAN) 4 mg ORAL q 6 H PRN Irene Glez APRN.CNP Or ondansetron (PF) 4 mg injection (ZOFRAN) 4 mg INTRAVENOUS q 6 H PRN Irene Glez APRN.DRY CURE WORKER 4 mg at 10/15/23 2255 aluminum-magnesium hydroxide-simethicone 200-200-20 mg/5 mL 30 mL 30 mL ORAL DAILY PRN Irene Glez APRN.CNP ibuprofen 400 mg tab(s) (MOTRIN) 400 mg ORAL q 6 H PRN Irene Glez APRN.DRY CURE WORKER 400 mg at 10/19/23 0853 sodium chloride 0.9 % (flush) 2-10 mL (BD POSIFLUSH) 2-10 mL INTRAVENOUS DIRECTED PRN Irene Glez APRN.CNP And perflutren lipid microspheres 1.1 mg/mL 1.3 mL injection (DEFINITY) 1.3 mL INTRAVENOUS DIRECTED PRN Irene Glez APRN.CNP pantoprazole DR 40 mg tab(s) (PROTONIX) 40 mg ORAL DAILY (6 AM) Irene Glez APRN.DRY CURE WORKER 40 mg at 10/19/23 0558 tiZANidine 4 mg tab(s) (ZANAFLEX) 4 mg ORAL TID PRN Irene Glez APRN.CNP LABS : Lab Results Component Value Date/Time WBC 4.24 10/19/2023 05:57 AM WBC 12.02 (H) 01/08/2021 06:50 AM RBC 3.15 (L) 10/19/2023 05:57 AM RBC 4.64 01/08/2021 06:50 AM HCT 32.4 (L) 10/19/2023 05:57 AM HCT 42.1 01/08/2021 06:50 AM MCV 102.9 (H) 10/19/2023 05:57 AM MCV 90.7 01/08/2021 06:50 AM MCH 33.3 10/19/2023 05:57 AM MCH 30.8 01/08/2021 06:50 AM MCHC 32.4 10/19/2023 05:57 AM MCHC 34.0 01/08/2021 06:50 AM RDWCV 13.9 10/19/2023 05:57 AM RDWCV 13.2 01/08/2021 06:50 AM PLT 84 (L) 10/19/2023 05:57 AM PLT 312 01/08/2021 06:50 AM NEUTP 37.2 10/15/2023 10:05 AM NEUTP 82.9 01/08/2021 06:50 AM LYMPHP 44.5 10/15/2023 10:05 AM LYMPHP 9.7 01/08/2021 06:50 AM MONOP 12.9 10/15/2023 10:05 AM MONOP 7.2 01/08/2021 06:50 AM EODINP 2.9 10/15/2023 10:05 AM EODINP 0.0 01/08/2021 06:50 AM BASOP 1.4 10/15/2023 10:05 AM BASOP 0.2 01/08/2021 06:50 AM ABSNEUT 1.29 (L) 10/15/2023 10:05 AM ABSNEUT 9.98 (H) 01/08/2021 06:50 AM ABSMONO 0.45 10/15/2023 10:05 AM ABSMONO 0.86 01/08/2021 06:50 AM ABSEOSIN 0.10 10/15/2023 10:05 AM ABSEOSIN <0.03 01/08/2021 06:50 AM ABSBASO 0.05 10/15/2023 10:05 AM ABSBASO <0.03 01/08/2021 06:50 AM GLUC 107 (H) 10/19/2023 05:57 AM GLUC 117 (H) 01/08/2021 06:50 AM NA 139 10/19/2023 (more content not included)... Normal [facility] Comprehensive metabolic 2000 panelon 10-19-2023 Albumin [Mass/Vol] 3.5 g/dL Low 3.9-4.9 [facility] Comment on above: Order Comment: Speci men Type: BLOOD SPECIMENOrdering Facility: [facility] Address: [address] [place] [address] Performed By: #### 2 4323-8, 34963-0 ####CONGREGATIONAL LABORATORYCLIA [id number] [place] [address] [place] ALP [Catalytic activity/Vol] 44 U/L Normal 34-[address] [facility] Comment on above: Order Comment: Speci men Type: BLOOD SPECIMENOrdering Facility: [facility] Address: [address] [place] [address] Performed By: #### 2 4323-8, 14856-3 ####CONGREGATIONAL LABORATORYCLIA [id number] [place] [id number] [place] ALT [Catalytic activity/Vol] 112 U/L High 7-[address] [facility] Comment on above: Order Comment: Speci men Type: BLOOD SPECIMENOrdering Facility: [facility] Address: [address] [facility] [address] [place] [id number] Performed By: #### 2 4323-8, ####CONGREGATIONAL LABORATORYCLIA [id number] [address] [place], [place] [address] [place] Anion gap [Moles/Vol] 11 mmol/L Normal 8-[address] [facility] Comment on above: Order Comment: Speci men Type: BLOOD SPECIMENOrdering Facility: [facility] Address: [address] [place] [address] Performed By: #### 2 4323-8, ####CONGREGATIONAL LABORATORYCLIA [id number] [address] [place], [place] [address] [place] AST [Catalytic activity/Vol] 193 U/L High 13-[address] [facility] Comment on above: Order Comment: Speci men Type: BLOOD SPECIMENOrdering Facility: [facility] Address: [address] [place] [address] Performed By: #### 2 4323-8, ####CONGREGATIONAL LABORATORYCLIA [id number] [address] [place], [place] [address] [place] Bilirubin [Mass/Vol] 0.7 mg/dL Normal 0.2-1.3 [facility] Comment on above: Order Comment: Speci men Type: BLOOD SPECIMENOrdering Facility: [facility] Address: [address] [place] [address] Performed By: #### 2 4323-8, ####CONGREGATIONAL LABORATORYCLIA [id number] [place] [id number] [place] Calcium [Mass/Vol] 9.3 mg/dL Normal 8.5-10.2 [facility] Comment on above: Order Comment: Speci men Type: BLOOD SPECIMENOrdering Facility: [facility] Address: [address] [place] [address] Performed By: #### 2 4323-8, 09573-1 ####CONGREGATIONAL LABORATORYCLIA [id number] [address] [address] [place] Chloride [Moles/Vol] 105 mmol/L Normal 98-107 [facility] Comment on above: Order Comment: Speci men Type: BLOOD SPECIMENOrdering Facility: [facility] Address: [address] [place] [address] Performed By: #### 2 4323-8, ####CONGREGATIONAL LABORATORYCLIA [id number] [place] [id number] [place] CO2 [Moles/Vol] 23 mmol/L Normal 22-[address] [facility] Comment on above: Order Comment: Speci men Type: BLOOD SPECIMENOrdering Facility: [facility] Address: [address] [place] [address] Performed By: #### 2 4323-8, ####CONGREGATIONAL LABORATORYCLIA [id number] [address] [place] Creatinine [Mass/Vol] 0.58 mg/dL Normal 0.58-0.[address] [facility] Comment on above: Order Comment: Speci men Type: BLOOD SPECIMENOrdering Facility: [facility] Address: [address] [place] [address] Performed By: #### 2 4323-8, ####CONGREGATIONAL LABORATORYCLIA [id number] [address] Creatinine and Glomerular filtration rate.predicted panel (S/P/Bld) 108 mL/min/1.73m??? Normal >=[address] [facility] Comment on above: Order Comment: Speci men Type: BLOOD SPECIMENOrdering Facility: [facility] Address: [address] [place] [address] Result Comment: Luisa mated Glomerular Filtration Rate (eGFR) is calculated using the 2020 CKD-EPI creatinine equation. This equation utilizes serum creatinine, sex, and age as parameters. The creatinine assay has traceable calibration to isotope dilution-mass spectrometry. Refer to KDIGO guidelines for clinical interpretation. In patients with unstable renal function, e.g. those with acute kidney injury, the eGFR may not accurately reflect actual GFR. Performed By: #### 2 4323-8, ####CONGREGATIONAL LABORATORYCLIA [id number] [place] [id number] [place] Glucose [Mass/Vol] 107 mg/dL High 74-99 [facility] Comment on above: Order Comment: Speci men Type: BLOOD SPECIMENOrdering Facility: [facility] Address: [address] [place] [address] Result Comment: The [place] [employer] (ADA) provides guidance for cutoff values for fasting glucose and random glucose. The ADA defines fasting as no caloric intake for at least 8 hours. Fasting plasma glucose results between 100 to 125 mg/dL indicate increased risk for diabetes (prediabetes). Fasting plasma glucose results greater than or equal to 126 mg/dL meet the criteria for diagnosis of diabetes. In the absence of unequivocal hyperglycemia, results should be confirmed by repeat testing. In a patient with classic symptoms of hyperglycemia or hyperglycemic crisis, random plasma glucose results greater than or equal to 200 mg/dL meet the criteria for diagnosis of diabetes. Reference: Standards of Medical Care in Diabetes 2016, [place] [employer]. Diabetes Care. 2016.39(Suppl 1). Performed By: #### 2 4323-8, ####[facility] LABORATORYCLIA [id number] [place] [id number] [place] Potassium [Moles/Vol] 4.3 mmol/L Normal 3.7-5.[address] [facility] Comment on above: Order Comment: Speci men Type: BLOOD SPECIMENOrdering Facility: [facility] Address: [address] [place] [address] Performed By: #### 2 4323-8, ####CON[facility]REG[facility] LABORATORYCLIA [id number] [place] [id number] [place] Protein [Mass/Vol] 5.9 g/dL Low 6.3-8.0 [facility] Comment on above: Order Comment: Speci men Type: BLOOD SPECIMENOrdering Facility: [facility] Address: [address] [place] [address] Performed By: #### 2 4323-8, ####CONGREGATIONAL LABORATORYCLIA [id number] [place] [address] [place] Sodium [Moles/Vol] 139 mmol/L Normal 136-144 [facility] Comment on above: Order Comment: Speci men Type: BLOOD SPECIMENOrdering Facility: [facility] Address: [facility] [place] [address] Performed By: #### 2 4323-8, 90081-5 ####CONGREGATIONAL LABORATORYCLIA [id number] [place] [id number] [place] Urea nitrogen [Mass/Vol] 6 mg/dL Low 7-[address] [facility] Comment on above: Order Comment: Speci men Type: BLOOD SPECIMENOrdering Facility: [facility] Address: [address] [place] [address] Performed By: #### 2 4323-8, 62584-0 ####CONGREGATIONAL LABORATORYCLIA [id number] [place] [id number] [place] Magnesium SerPl-mCncon 10-18 Magnesium [Mass/Vol] 1.5 mg/dL Low 1.7-2.3 [facility] Comment on above: Order Comment: Speci men Type: BLOOD SPECIMENOrdering Facility: [facility] Address: [address] [place] [address] Performed By: #### 2 4323-8, 55704-9 ####CONGREGATIONAL LABORATORYCLIA [id number] [place] [id number] [place] US CAROTID BILon 10-19-2023 US CAROTID DAREK * * *Final Report* * * DATE OF EXAM: Oct 19 2023 2:39PM [facility] [address] [facility] / PROCEDURE REASON: Other * * * * Physician Interpretation * * * * CLINICAL INDICATION: Syncope COMPARISON: None TECHNIQUE: Real-time imaging of the neck vasculature was performed using ultrasound. RIGHT CAROTID RESULTS: The maximum peak systolic velocity measurements are as follows: Mid common carotid artery 78.9 cm per second. Internal carotid artery 69.1 cm per second. External carotid artery 89.5 cm per second. Internal/common peak systolic ratio 0.9. The right vertebral artery has antegrade flow. LEFT CAROTID RESULTS: The maximum peak systolic velocity measurements are as follows: Mid common carotid artery 120.2 cm per second. Internal carotid artery 105.6 cm per second. External carotid artery 98.3 cm per second. Internal/common peak systolic ratio 0.9 . The left vertebral artery has antegrade flow. IMPRESSION: 1. No focal abnormality seen. 2. Less than 30% stenosis involving the right internal carotid artery by NASCET criteria. 3. Less than 30% stenosis involving the left internal carotid artery by NASCET criteria. Physical Education Specialist: PSCB Transcribe Date/Time: Oct 19 2023 3:50P Dictated by : LESLIE KAISER MD This examination was interpreted and the report reviewed and electronically signed by: LESLIE KAISER MD on Oct 19 2023 3:56PM EST [id number] [facility] Bacteria Wnd Culton 10-18-19 24 Bacteria identified Cx Nom (Wound) ORGANISM ID: 1 Moderate Methicillin-RESISTANT Staphylococcus aureus (MRSA) ORGANISM ID: 2 Moderate mixed oral and respiratory luis GRAM STAIN: Few Gram positive cocci Rare Gram negative bacilli No Polymorphonuclear Leukocytes ORGANISM ID: 1 (METHICILLIN RESISTANT STAPHYLOCOCCUS AUREUS) ANTIBIOTIC INTERPRETATION MT STATUS REFERENCE RANGE Oxacillin R >=4 F Susceptible <=2 , Resistant >2 Oxacillin resistant Staphylococci are resistant to all beta-lactam antibiotics (except new cephalosporins with anti-MRSA activity i.e. ceftaroline) Erythromycin R >=8 F Susceptible <=0.5 , Intermediate >.5 , Resistant >4 Clindamycin R >=4 F Susceptible <=0.5 , Intermediate >.5 , Resistant >2 Trimeth sulfameth S <=10 F Susceptible <=40 , Resistant >40 Vancomycin S 1 F Susceptible <=2 , Intermediate >2 , Resistant >8 Daptomycin S 0.25 F Susceptible <=1 , Nonsusceptible >1 Linezolid S 2 F Susceptible <=4 , Resistant >4 Rifampin S <=0.5 F Susceptible <=1 , Intermediate >1 , Resistant >2 Rifampin should not be used alone for antimicrobial therapy. Levofloxacin R >=8 F Susceptible <=1 , Intermediate >1 , Resistant >2 Tetracycline S <=1 F Susceptible <=4 , Intermediate >4 , Resistant >8 Doxycycline S <=0.5 F Susceptible <=4 , Intermediate >4 , Resistant >8 [facility] Comment on above: Performed By: #### 6 462-6 ####[facility] LABCLIA [id number] [address] CASE MANAGEMon 10-18-2023 CASE MANAGEM HNO ID: [id number] Author: BRANDY SHARMA RN Service: ? Author Type: Registered Nurse Type: Care Mgt Progress Note Filed: 10/18/2023 11:45 Note Text: CARE MANAGEMENT PROGRESS NOTE SERVICE DATE: 10/18/2023 SERVICE TIME: 11:30am LOS: 3 days Informed by medical team patient was requesting a walker. Met with pt. who was in agreement with a wheeled walker, she is aware that it will not have a seat. Request sent to [facility]. Pt. is aware that if approved by insurance, [facility] will inform us what [facility] will have the walker. Per behavioral medicine note, pt. interested in IOP. Pt. states yes or something like that. Pt. provided with information for [facility]. Informed her if she is in agreement, CM can make an appointment prior to discharge. SIGNATURE: Brandy Sharma RN PATIENT NAME: Emely [place] DATE: October 18, 2023 TIME: 11:42 AM PAGER/CONTACT #: Brandy Sharma RN [phone] [facility] CBC panel Auto (Bld)on 10-17 Erythrocyte distribution width (RBC) [Ratio] 13.5 % Normal 11.5-15.[address] [facility] Comment on above: Order Comment: Speci men Type: BLOOD SPECIMENOrdering Facility: [facility] Address: [address] [place] [address] Performed By: #### 5 8410-2 ####CONGREGATIONAL LABORATORYCLIA [id number] [address] [place], [place] [address] [place] Hematocrit (Bld) [Volume fraction] 31.7 % Low 36.0-46.[address] [facility] Comment on above: Order Comment: Speci men Type: BLOOD SPECIMENOrdering Facility: [facility] Address: [address] [place] [address] Performed By: #### 5 8410-2 ####CON[facility]REGATIONAL LABORATORYCLIA [id number] [address] [place] Hemoglobin (Bld) [Mass/Vol] 10.5 g/dL Low 11.5-15.[address] [facility] Comment on above: Order Comment: Speci men Type: BLOOD SPECIMENOrdering Facility: [facility] Address: [address] [place] [address] Performed By: #### 5 8410-2 ####CON[facility]REG[facility] LABORATORYCLIA [id number] [place] [address] [place] MCH (RBC) [Entitic mass] 33.4 pg Normal 26.0-34.[address] [facility] Comment on above: Order Comment: Speci men Type: BLOOD SPECIMENOrdering Facility: [facility] Address: [address] [place] [address] Performed By: #### 5 8410-2 ####CONGREG[facility] LABORATORYCLIA [id number] [place] [id number] [place] MCHC (RBC) [Mass/Vol] 33.1 g/dL Normal 30.5-36.[address] [facility] Comment on above: Order Comment: Speci men Type: BLOOD SPECIMENOrdering Facility: [facility] Address: [address] [place] [address] Performed By: #### 5 8410-2 ####CONGREG[facility] LABORATORYCLIA [id number] [address] [place], [place] [address] [place] MCV (RBC) [Entitic vol] 101.0 fL High 80.0-100.[address] [facility] Comment on above: Order Comment: Speci men Type: BLOOD SPECIMENOrdering Facility: [facility] Address: [address] [place] [address] Performed By: #### 5 8410-2 ####CONGREGATIONAL LABORATORYCLIA [id number] [address] [place] Nucleated RBC (Bld) [#/Vol] 10*3/uL Normal <0.[address] [facility] Comment on above: Order Comment: Speci men Type: BLOOD SPECIMENOrdering Facility: [facility] Address: [address] [place] [address] Performed By: #### 5 8410-2 ####CONGREG[facility] LABORATORYCLIA [id number] [place] [address] [place] Platelet mean volume (Bld) [Entitic vol] 9.8 fL Normal 9.0-12.[address] [facility] Comment on above: Order Comment: Speci men Type: BLOOD SPECIMENOrdering Facility: [facility] Address: [address] [place] [address] Performed By: #### 5 8410-2 ####CON[facility]REG[facility] LABORATORYCLIA [id number] [place] [address] [place] Platelets (Bld) [#/Vol] 60 10*3/uL Low 150-[address] [facility] Comment on above: Order Comment: Speci men Type: BLOOD SPECIMENOrdering Facility: [facility] Address: [address] [place] [address] Result Comment: Resu lts checked and verified.No clot detected. Performed By: #### 5 8410-2 ####CONGREGATIONAL LABORATORYCLIA [id number] [place] [id number] [place] RBC (Bld) [#/Vol] 3.14 10*6/uL Low 3.90-5.20 [facility] Comment on above: Order Comment: Speci men Type: BLOOD SPECIMENOrdering Facility: [facility] Address: [address] [place] [address] Performed By: #### 5 8410-2 ####CONGREGATIONAL LABORATORYCLIA [id number] [place] [id number] [place] WBC (Bld) [#/Vol] 3.46 10*3/uL Low 3.70-11.00 [facility] Comment on above: Order Comment: Speci men Type: BLOOD SPECIMENOrdering Facility: [facility] Address: [address] [place] [address] Performed By: #### 5 8410-2 ####CONGREG[facility] LABORATORYCLIA [id number] [place] [id number] [facility] OF VITOR Comprehensive metabolic 2000 panelon 10-18-2023 Albumin [Mass/Vol] 3.6 g/dL Low 3.9-4.9 [facility] Comment on above: Order Comment: Speci men Type: BLOOD SPECIMENOrdering Facility: [facility] Address: [address] [place] [address] Performed By: #### 1 9123-9, 35368-3 ####CON[facility]REG[facility] LABORATORYCLIA [id number] [address] [place] ALP [Catalytic activity/Vol] 42 U/L Normal 34-[address] [facility] Comment on above: Order Comment: Speci men Type: BLOOD SPECIMENOrdering Facility: [facility] Address: [address] [place] [address] Performed By: #### 1 9123-9, 47168-5 ####CONGREGATIONAL LABORATORYCLIA [id number] [place] [id number] [place] ALT [Catalytic activity/Vol] 74 U/L High 7-[address] [facility] Comment on above: Order Comment: Speci men Type: BLOOD SPECIMENOrdering Facility: [facility] Address: [address] [place] [address] Performed By: #### 1 9123-9, 03667-2 ####CONGREGATIONAL LABORATORYCLIA [id number] [address] [place] [address] [place] Anion gap [Moles/Vol] 10 mmol/L Normal 8-[address] [facility] Comment on above: Order Comment: Speci men Type: BLOOD SPECIMENOrdering Facility: [facility] Address: [address] [place] [address] Performed By: #### 1 9123-9, 86253-4 ####CONGREGATIONAL LABORATORYCLIA [id number] [address] [place] [address] [place] AST [Catalytic activity/Vol] 104 U/L High 13-[address] [facility] Comment on above: Order Comment: Speci men Type: BLOOD SPECIMENOrdering Facility: [facility] Address: [address] [place] [address] Performed By: #### 1 9123-9, 85994-7 ####CONGREGATIONAL LABORATORYCLIA [id number] [address] [place] [address] [place] Bilirubin [Mass/Vol] 0.6 mg/dL Normal 0.2-1.3 [facility] Comment on above: Order Comment: Speci men Type: BLOOD SPECIMENOrdering Facility: [facility] Address: [address] [place] [address] Performed By: #### 1 9123-9, 00805-5 ####CONGREG[facility] LABORATORYCLIA [id number] [place] [address] [place] Calcium [Mass/Vol] 8.4 mg/dL Low 8.5-10.2 [facility] Comment on above: Order Comment: Speci men Type: BLOOD SPECIMENOrdering Facility: [facility] Address: [address] [place] [address] Performed By: #### 1 9123-9, 81801-1 ####CONGREG[facility] LABORATORYCLIA [id number] [address] [place] [address] [place] Chloride [Moles/Vol] 107 mmol/L Normal 98-107 [facility] Comment on above: Order Comment: Speci men Type: BLOOD SPECIMENOrdering Facility: [facility] Address: [address] [place] [address] Performed By: #### 1 9123-9, 31445-9 ####CONGREGATIONAL LABORATORYCLIA [id number] [place] [id number] [facility] CO2 [Moles/Vol] 21 mmol/L Low 22-[address] [facility] Comment on above: Order Comment: Speci men Type: BLOOD SPECIMENOrdering Facility: [facility] Address: [address] [place] [address] Performed By: #### 1 9123-9, 02404-8 ####CONGREGATIONAL LABORATORYCLIA [id number] [address] [place] [facility] Creatinine [Mass/Vol] 0.57 mg/dL Low 0.58-0.[address] [facility] Comment on above: Order Comment: Speci men Type: BLOOD SPECIMENOrdering Facility: [facility] Address: [address] [place] [address] Performed By: #### 1 9123-9, 44449-6 ####CONGREGATIONAL LABORATORYCLIA [id number] [address] Creatinine and Glomerular filtration rate.predicted panel (S/P/Bld) 109 mL/min/1.73m??? Normal >=[address] [facility] Comment on above: Order Comment: Speci men Type: BLOOD SPECIMENOrdering Facility: [facility] Address: [address] [place] [address] Result Comment: Luisa mated Glomerular Filtration Rate (eGFR) is calculated using the 2020 CKD-EPI creatinine equation. This equation utilizes serum creatinine, sex, and age as parameters. The creatinine assay has traceable calibration to isotope dilution-mass spectrometry. Refer to KDIGO guidelines for clinical interpretation. In patients with unstable renal function, e.g. those with acute kidney injury, the eGFR may not accurately reflect actual GFR. Performed By: #### 1 9123-9, 90779-6 ####CONGREGATIONAL LABORATORYCLIA [id number] [place] [id number] [place] Glucose [Mass/Vol] 112 mg/dL High 74-99 [facility] Comment on above: Order Comment: Speci men Type: BLOOD SPECIMENOrdering Facility: [facility] Address: [address] [place] [address] Result Comment: The [place] Diabetes Association (ADA) provides guidance for cutoff values for fasting glucose and random glucose. The ADA defines fasting as no caloric intake for at least 8 hours. Fasting plasma glucose results between 100 to 125 mg/dL indicate increased risk for diabetes (prediabetes). Fasting plasma glucose results greater than or equal to 126 mg/dL meet the criteria for diagnosis of diabetes. In the absence of unequivocal hyperglycemia, results should be confirmed by repeat testing. In a patient with classic symptoms of hyperglycemia or hyperglycemic crisis, random plasma glucose results greater than or equal to 200 mg/dL meet the criteria for diagnosis of diabetes. Reference: Standards of Medical Care in Diabetes 2016, [place] [employer]. Diabetes Care. 2016.39(Suppl 1). Performed By: #### 1 9123-9, 01995-3 ####CONGREGATIONAL LABORATORYCLIA [id number] [place] [address] [place] Potassium [Moles/Vol] 3.8 mmol/L Normal 3.7-5.[address] [facility] Comment on above: Order Comment: Ruth caldera Type: BLOOD SPECIMENOrdering Facility: [facility] Address: [address] [place] [address] Performed By: #### 1 9123-9, 33349-9 ####CON[facility]REG[facility] LABORATORYCLIA [id number] [place] [id number] [place] Protein [Mass/Vol] 5.8 g/dL Low 6.3-8.0 [facility] Comment on above: Order Comment: Joyi men Type: BLOOD SPECIMENOrdering Facility: [facility] Address: [address] [place] [address] Performed By: #### 1 9123-9, 76912-6 ####CONGREG[facility] LABORATORYCLIA [id number] [place] [address] [place] Sodium [Moles/Vol] 138 mmol/L Normal 136-144 [facility] Comment on above: Order Comment: Speci men Type: BLOOD SPECIMENOrdering Facility: [facility] Address: [address] [place] [address] Performed By: #### 1 9123-9, 40069-1 ####CON[facility]REG[facility] LABORATORYCLIA [id number] [address] [place], [place] [address] [place] Urea nitrogen [Mass/Vol] 5 mg/dL Low [address] [facility] Comment on above: Order Comment: Speci men Type: BLOOD SPECIMENOrdering Facility: [facility] Address: [address] [place] [address] Performed By: #### 1 9123-9, 50982-9 ####CONGREG[facility] LABORATORYCLIA [id number] [place] [id number] [place] Magnesium SerPl-mCncon 10-17 Magnesium [Mass/Vol] 2.0 mg/dL Normal 1.7-2.3 [facility] Comment on above: Order Comment: Speci men Type: BLOOD SPECIMENOrdering Facility: [facility] Address: [address] [place] [address] Performed By: #### 1 9123-9, 56716-6 ####CONGREG[facility] LABORATORYCLIA [id number] [place] [id number] [place] CBC panel Auto (Bld)on 10-16 Erythrocyte distribution width (RBC) [Ratio] 13.2 % Normal 11.5-15.[address] [facility] Comment on above: Order Comment: Speci men Type: BLOOD SPECIMENOrdering Facility: [facility] Address: [address] [place] [address] Performed By: #### 5 8410-2 ####CONGREGATIONAL LABORATORYCLIA [id number] [place] [id number] [place] Hematocrit (Bld) [Volume fraction] 32.2 % Low 36.0-46.[address] [facility] Comment on above: Order Comment: Speci men Type: BLOOD SPECIMENOrdering Facility: [facility] Address: [address] [place] [address] Performed By: #### 5 8410-2 ####CONGREGATIONAL LABORATORYCLIA [id number] [address] [place] [address] [place] Hemoglobin (Bld) [Mass/Vol] 11.0 g/dL Low 11.5-15.[address] [facility] Comment on above: Order Comment: Speci men Type: BLOOD SPECIMENOrdering Facility: [facility] Address: [address] [place] [address] Performed By: #### 5 8410-2 ####CONGREGATIONAL LABORATORYCLIA [id number] [address] [place] [address] [place] MCH (RBC) [Entitic mass] 34.2 pg High 26.0-34.[address] [facility] Comment on above: Order Comment: Speci men Type: BLOOD SPECIMENOrdering Facility: [facility] Address: [address] [place] [address] Performed By: #### 5 8410-2 ####CONGREGATIONAL LABORATORYCLIA [id number] [address] [place] [facility] MCHC (RBC) [Mass/Vol] 34.2 g/dL Normal 30.5-36.[address] [facility] Comment on above: Order Comment: Speci men Type: BLOOD SPECIMENOrdering Facility: [facility] Address: [address] [place] [address] Performed By: #### 5 8410-2 ####CONGREGATIONAL LABORATORYCLIA [id number] [address] [place] MCV (RBC) [Entitic vol] 100.0 fL Normal 80.0-100.[address] [facility] Comment on above: Order Comment: Speci men Type: BLOOD SPECIMENOrdering Facility: [facility] Address: [address] [place] [address] Performed By: #### 5 8410-2 ####CONGREGATIONAL LABORATORYCLIA [id number] [address] [place] [address] [place] Nucleated RBC (Bld) [#/Vol] 10*3/uL Normal <0.[address] [facility] Comment on above: Order Comment: Speci men Type: BLOOD SPECIMENOrdering Facility: [facility] Address: [address] [place] [address] Performed By: #### 5 8410-2 ####CONGREGATIONAL LABORATORYCLIA [id number] [address] [place], [place] [address] [place] Platelet mean volume (Bld) [Entitic vol] 10.1 fL Normal 9.0-12.[address] [facility] Comment on above: Order Comment: Speci men Type: BLOOD SPECIMENOrdering Facility: [facility] Address: [address] [place] [address] Performed By: #### 5 8410-2 ####CONGREG[facility] LABORATORYCLIA [id number] [address] [place], [place] [address] [place] Platelets (Bld) [#/Vol] 51 10*3/uL Low 150-[address] [facility] Comment on above: Order Comment: Speci men Type: BLOOD SPECIMENOrdering Facility: [facility] Address: [address] [place] [address] Performed By: #### 5 8410-2 ####CONGREG[facility] LABORATORYCLIA [id number] [address] [place], [place] [address] [place] RBC (Bld) [#/Vol] 3.22 10*6/uL Low 3.90-5.20 [facility] Comment on above: Order Comment: Speci men Type: BLOOD SPECIMENOrdering Facility: [facility] Address: [address] [place] [address] Performed By: #### 5 8410-2 ####CONGREG[facility] LABORATORYCLIA [id number] [place] [id number] [place] WBC (Bld) [#/Vol] 3.58 10*3/uL Low 3.70-11.00 [facility] Comment on above: Order Comment: Speci men Type: BLOOD SPECIMENOrdering Facility: [facility] Address: [address] [place] [address] Performed By: #### 5 8410-2 ####CONGREG[facility] LABORATORYCLIA [id number] [place] [id number] [place] Comprehensive metabolic 2000 panelon 10-17-2023 Albumin [Mass/Vol] 4.0 g/dL Normal 3.9-4.9 [facility] Comment on above: Order Comment: Speci men Type: BLOOD SPECIMENOrdering Facility: [facility] Address: [address] [place] [address] Performed By: #### 2 4323-8, 42581-3 ####CONGREGATIONAL LABORATORYCLIA [id number] [place] [id number] [place] ALP [Catalytic activity/Vol] 43 U/L Normal 34-[address] [facility] Comment on above: Order Comment: Speci men Type: BLOOD SPECIMENOrdering Facility: [facility] Address: [address] [place] [address] Performed By: #### 2 4323-8, 66190-9 ####CON[facility]REG[facility] LABORATORYCLIA [id number] [place] [id number] [place] ALT [Catalytic activity/Vol] 74 U/L High 7-[address] [facility] Comment on above: Order Comment: Speci men Type: BLOOD SPECIMENOrdering Facility: [facility] Address: [address] [place] [address] Performed By: #### 2 4323-8, 94215-6 ####CONGREGATIONAL LABORATORYCLIA [id number] [place] [id number] [place] Anion gap [Moles/Vol] 14 mmol/L Normal 8-[address] [facility] Comment on above: Order Comment: Speci men Type: BLOOD SPECIMENOrdering Facility: [facility] Address: [address] [place] [address] Performed By: #### 2 4323-8, 56299-7 ####CONGREGATIONAL LABORATORYCLIA [id number] [place] [id number] [place] AST [Catalytic activity/Vol] 92 U/L High 13-35 [facility] [facility] Comment on above: Order Comment: Speci men Type: BLOOD SPECIMENOrdering Facility: [facility] Address: [address] [place] [address], [place] [address] Performed By: #### 2 4323-8, ####CONGREGATIONAL LABORATORYCLIA [id number] [address] [place], [place] [id number] [place] Bilirubin [Mass/Vol] 0.7 mg/dL Normal 0.2-1.3 [facility] Comment on above: Order Comment: Speci men Type: BLOOD SPECIMENOrdering Facility: [facility] Address: [address] [place] [address] Performed By: #### 2 4323-8, ####CONGREGATIONAL LABORATORYCLIA [id number] [address] [place], [place] [address] [place] Calcium [Mass/Vol] 8.4 mg/dL Low 8.5-10.2 [facility] Comment on above: Order Comment: Speci men Type: BLOOD SPECIMENOrdering Facility: [facility] Address: [address] [place] [address] [place] [address] Performed By: #### 2 43206-25, ####CONGREGATIONAL LABORATORYCLIA [id number] [place] [id number] [place] Chloride [Moles/Vol] 103 mmol/L Normal 98-107 [facility] Comment on above: Order Comment: Speci men Type: BLOOD SPECIMENOrdering Facility: [facility] Address: [address] [place] [address] Performed By: #### 2 4323-8, ####CONGREGATIONAL LABORATORYCLIA [id number] [place] [id number] [place] CO2 [Moles/Vol] 21 mmol/L Low 22-[address] [facility] Comment on above: Order Comment: Speci men Type: BLOOD SPECIMENOrdering Facility: [facility] Address: [address] [place] [address] Performed By: #### 2 4323-8, ####CONGREGATIONAL LABORATORYCLIA [id number] [address] [place], [place] [address] [place] Creatinine [Mass/Vol] 0.58 mg/dL Normal 0.58-0.[address] [facility] Comment on above: Order Comment: Ruth caldera Type: BLOOD SPECIMENOrdering Facility: [facility] Address: [address] [place] [address] Performed By: #### 2 4323-8, 44817-5 ####CONGREGATIONAL LABORATORYCLIA [id number] [place] [id number] [place] Creatinine and Glomerular filtration rate.predicted panel (S/P/Bld) 108 mL/min/1.73m??? Normal >=[address] [facility] Comment on above: Order Comment: Ruth caldera Type: BLOOD SPECIMENOrdering Facility: [facility] Address: [address] [place] [address] Result Comment: Luisa mated Glomerular Filtration Rate (eGFR) is calculated using the 2020 CKD-EPI creatinine equation. This equation utilizes serum creatinine, sex, and age as parameters. The creatinine assay has traceable calibration to isotope dilution-mass spectrometry. Refer to KDIGO guidelines for clinical interpretation. In patients with unstable renal function, e.g. those with acute kidney injury, the eGFR may not accurately reflect actual GFR. Performed By: #### 2 4323-8, 11893-3 ####CONGREGATIONAL LABORATORYCLIA [id number] [place] [id number] [place] Glucose [Mass/Vol] 98 mg/dL Normal 74-99 [facility] Comment on above: Order Comment: Ruth caldera Type: BLOOD SPECIMENOrdering Facility: [facility] Address: [address] [place] [address] Result Comment: The [place] Diabetes Association (ADA) provides guidance for cutoff values for fasting glucose and random glucose. The ADA defines fasting as no caloric intake for at least 8 hours. Fasting plasma glucose results between 100 to 125 mg/dL indicate increased risk for diabetes (prediabetes). Fasting plasma glucose results greater than or equal to 126 mg/dL meet the criteria for diagnosis of diabetes. In the absence of unequivocal hyperglycemia, results should be confirmed by repeat testing. In a patient with classic symptoms of hyperglycemia or hyperglycemic crisis, random plasma glucose results greater than or equal to 200 mg/dL meet the criteria for diagnosis of diabetes. Reference: Standards of Medical Care in Diabetes 2016, [place] [employer] Association. Diabetes Care. 2016.39(Suppl 1). Performed By: #### 2 4323-8, 78517-7 ####CONGREGATIONAL LABORATORYCLIA [id number] [address] [place], [place] [address] [place] Potassium [Moles/Vol] 3.3 mmol/L Low 3.7-5.[address] [facility] Comment on above: Order Comment: Speci men Type: BLOOD SPECIMENOrdering Facility: [facility] Address: [address] [place] [address] Performed By: #### 2 4323-8, ####CONGREGATIONAL LABORATORYCLIA [id number] [address] [place], [place] [address] [place] Protein [Mass/Vol] 6.1 g/dL Low 6.3-8.0 [facility] Comment on above: Order Comment: Speci men Type: BLOOD SPECIMENOrdering Facility: [facility] Address: [address] [place] [address] Performed By: #### 2 432-8, ####CONGREGATIONAL LABORATORYCLIA [id number] [place] [id number] [place] Sodium [Moles/Vol] 138 mmol/L Normal 136-144 [facility] Comment on above: Order Comment: Speci men Type: BLOOD SPECIMENOrdering Facility: [facility] Address: [address] [place] [address] Performed By: #### 2 4323-8, ####CONGREGATIONAL LABORATORYCLIA [id number] [place] [id number] [place] Urea nitrogen [Mass/Vol] 6 mg/dL Low 7-[address] [facility] Comment on above: Order Comment: Speci men Type: BLOOD SPECIMENOrdering Facility: [facility] Address: [address] [place] [address] Performed By: #### 2 4323-8, 68405-2 ####CONGREGATIONAL LABORATORYCLIA [id number] [address] [place], [place] [address] [place] GGT SerPl-cCncon 10-17-2023 Gamma glutamyl transferase [Catalytic activity/Vol] 793 U/L [address] Comment on above: Order Comment: Speci men Type: BLOOD SPECIMENOrdering Facility: [facility] Address: [address] [place] [address] Performed By: #### 2 324-2 ####[facility] LABCLIA [id number] [place] [address] [place] [facility] OF VITOR Magnesium SerPl-mCncon 10-16 Magnesium [Mass/Vol] 2.0 mg/dL Normal 1.7-2.3 [facility] Comment on above: Order Comment: Speci men Type: BLOOD SPECIMENOrdering Facility: [facility] Address: [address] [place] [address] Performed By: #### 2 4323-8, 36049-4 ####CONGREGATIONAL LABORATORYCLIA [id number] [address] [place] CASE MGT INIT ASSESon 2023 CASE MGT INIT ASSES HNO ID: [id number] Author: JANEY ALBRECHT LISW Service: ? Author Type: Associate Editor Type: Care Mgt Initial Assessment Filed: 10/16/2023 15:27 Note Text: CARE MANAGEMENT: ASSESSMENT AND DISCHARGE PLAN SERVICE DATE: October 16, 2023 SERVICE TIME: 3:23 PM PCP: Jhoan Roberto MD Primary Contact: Extended Emergency Contact Information Primary Emergency Contact: Ana Ruvalcaba Mobile Relation: Daughter Secondary Emergency Contact: Shreya Ruvalcaba Mobile Relation: Daughter Admission Status: Observation [facility] Discharge Planning requested by: Per Department Practice Potential Transition Plans Home Advance Directives Current Advance Directive: None Conservation Science Officer Attempted to Assist with AD Completion: No Current Living Arrangements and Support Lives with: Family members Type of Residence: Private Residence (House) Does the patient have to climb stairs at home?: No Support: Family members, Friends/neighbors, Children, Therapist How do you manage to accomplish the following: Independent: Ambulation;Bathe/Shower; Dress;Meals/Meal Prep;Going to the bathroom;Medication Management;Transportatio n to appointments/community Current Services/Equipment Current Post-Acute Service(s): None Discharge Planning Patient Goal(s): Be able to go home Raymond of Choice Explained: Raymond of Choice Given: No Reason Not Given: No placements necessary Are you interested in bedside delivery of your medications? No Discharge Planning Participant(s): Patient Patient/Family Comments: Caregiver Assessment: Caregiver is ready, willing and able to meet the patient's needs as recommended by the inter-professional team: No Caregiver needed and ALCOHOL USE/ABUSE CAGE ASSESSMENT Two or More Affirmative Responses Suggest a Client is a Problem Drinker. - Have you felt the need to cut down on your drinking? Yes - Do you feel annoyed by people complaining about your drinking? Yes - Do you ever feel guilty about your drinking? Yes - Do you ever drink an eye-real estate transaction manager in the morning to relieve shakes? Yes Transport at Discharge: Transportation Arrangements: Car Needs Prior to Discharge: Needs Prior to Discharge: To Be Determined Post-Acute Discharge Plan: CM assessed patient at bedside. Patient has virtual sitter at bedside. Patient reports that she lives at home with her daughter, son in law and 19 month old grandchild. 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 Patient reports she will need hospital staff to complete forms so she can return to work. Patient reports that she is not sure about sobriety. Patient has a sponsor through [employer] she talks to daily. Patient reports she drink 2-3 bottles of wine daily. Patient reports she does not want treatment. Patient reports she is not sure if she will completely quit drinking. Patient appeared to get anxious when talking about sobriety. CM reassured patient that CM is just gathering information to see what CM can do to help patient. Patient appeared to relax. Patient reports daughters will probably be able to give me a ride home. Plan is for patient to go to [facility]. CM will remain available. SIGNATURE: JADA Tomas PATIENT NAME: Emely Cleveland DATE: October 16, 2023 TIME: 3:23 PM CONTACT #: [phone] [facility] CBC panel Auto (Bld)on 10-15 Erythrocyte distribution width (RBC) [Ratio] 13.1 % Normal 11.5-15.[address] [facility] Comment on above: Order Comment: Speci men Type: BLOOD SPECIMENOrdering Facility: [facility] Address: [address] [place] [address] Performed By: #### 5 8410-2 ####CONGREGATIONAL LABORATORYCLIA [id number] [address] [place], [place] [address] [place] Hematocrit (Bld) [Volume fraction] 31.8 % Low 36.0-46.[address] [facility] Comment on above: Order Comment: Speci men Type: BLOOD SPECIMENOrdering Facility: [facility] Address: [address] [place] [address] Performed By: #### 5 8410-2 ####CONGREGATIONAL LABORATORYCLIA [id number] [place] [address] [place] Hemoglobin (Bld) [Mass/Vol] 10.7 g/dL Low 11.5-15.[address] [facility] Comment on above: Order Comment: Speci men Type: BLOOD SPECIMENOrdering Facility: [facility] Address: [address] [place] [address] Performed By: #### 5 8410-2 ####CONGREGATIONAL LABORATORYCLIA [id number] [place] [address] [place] MCH (RBC) [Entitic mass] 33.0 pg Normal 26.0-34.[address] [facility] Comment on above: Order Comment: Speci men Type: BLOOD SPECIMENOrdering Facility: [facility] Address: [address] [place] [address] Performed By: #### 5 8410-2 ####CONGREGATIONAL LABORATORYCLIA [id number] [place] [id number] [place] MCHC (RBC) [Mass/Vol] 33.6 g/dL Normal 30.5-36.[address] [facility] Comment on above: Order Comment: Speci men Type: BLOOD SPECIMENOrdering Facility: [facility] Address: [address] [place] [address] Performed By: #### 5 8410-2 ####CONGREGATIONAL LABORATORYCLIA [id number] [address] [place], [place] [address] [place] MCV (RBC) [Entitic vol] 98.1 fL Normal 80.0-100.[address] [facility] Comment on above: Order Comment: Speci men Type: BLOOD SPECIMENOrdering Facility: [facility] Address: [address] [place] [address] Performed By: #### 5 8410-2 ####CONGREGATIONAL LABORATORYCLIA [id number] [address] [place], [place] [address] [place] Nucleated RBC (Bld) [#/Vol] 10*3/uL Normal <0.[address] [facility] Comment on above: Order Comment: Speci men Type: BLOOD SPECIMENOrdering Facility: [facility] Address: [address] [place] [address] Performed By: #### 5 8410-2 ####CONGREGATIONAL LABORATORYCLIA [id number] [place] [id number] [place] Platelet mean volume (Bld) [Entitic vol] 9.4 fL Normal 9.0-12.[address] [facility] Comment on above: Order Comment: Speci men Type: BLOOD SPECIMENOrdering Facility: [facility] Address: [address] [place] [address] Performed By: #### 5 8410-2 ####CONGREGATIONAL LABORATORYCLIA [id number] [place] [id number] [place] Platelets (Bld) [#/Vol] 68 10*3/uL Low 150-[address] [facility] Comment on above: Order Comment: Speci men Type: BLOOD SPECIMENOrdering Facility: [facility] Address: [address] [place] [address] Performed By: #### 5 8410-2 ####CONGREGATIONAL LABORATORYCLIA [id number] [place] [id number] [place] RBC (Bld) [#/Vol] 3.24 10*6/uL Low 3.90-5.20 [facility] Comment on above: Order Comment: Speci men Type: BLOOD SPECIMENOrdering Facility: [facility] Address: [address] [place] [place] [id number] Performed By: #### 5 8410-2 ####CONGREGATIONAL LABORATORYCLIA [id number] [place] [id number] [place] [facility] WBC (Bld) [#/Vol] 3.68 10*3/uL Low 3.70-11.00 [facility] Comment on above: Order Comment: Speci men Type: BLOOD SPECIMENOrdering Facility: [facility] Address: [address] [place] [id number] Performed By: #### 5 8410-2 ####CONGREGATIONAL LABORATORYCLIA [id number] [place] [id number] [facility] CONSULTon 10-16-2023 CONSULT HNO ID: [id number] Author: ZAKIA PEREZ MD Service: Clinical Cardiology Author Type: Physician Type: Consults Filed: 10/16/2023 14:01 Note Text: Cardiology Consult PATIENT NAME: Emely Cleveland DATE of SERVICE: October 16, 2023 Primary Care Physician: Jhoan Roberto MD Reason for consult: syncope, alcohol abuse HPI: This is a 53 year old female who presents with syncope in the setting of alcohol abuse. The patient is an CIWA protocol on Lexapro, Librium, and Acamprosate. This patient has a history of hypertension dyslipidemia KENDALL on CPAP anxiety depression and is a daily to bottle of wine alcohol. Family was concerned that she had a seizure in the setting of alcohol withdrawal at home and echocardiogram was done today which was normal. The patient is on telemetry with no evidence of atrial fibrillation or ventricular tachycardia heart block or other arrhythmias. No additional cardiac evaluation is planned. Agree with QT C monitoring and electrolyte monitoring in the setting of acute detoxification. Cardiac History: Echocardiogram Impression CONCLUSIONS: - Exam indication: Syncope - The left ventricle is normal in size. Left ventricular systolic function is normal. EF = 60 ? 5% (2D biplane) Indeterminate left ventricular diastolic dysfunction. - The right ventricle is normal in size. Right ventricular systolic function is normal. - There are no significant valvular abnormalities. - The visualized aorta is borderline dilated with a maximal dimension of 3.8 cm. - The patient has not had a prior CC echocardiographic exam for comparison. Past Medical History: PAST MEDICAL HISTORY Diagnosis Date High blood pressure PMH - PAST MEDICAL HISTORY OF hypertension Rx'd per Dr. Roberto Past Surgical History: PAST SURGICAL HISTORY Procedure Laterality Date LASIK PAST SURGICAL HISTORY OF 1990 wisdom teeth removed Cardiac Risk Factors: Smoking former, HTN Yes, Hyperlipidemia Yes, DM No, FHx Yes Family History: FAMILY HISTORY Problem Relation Age of Onset Hypertension Other Family in gereneral Social History: Social History Tobacco Use Smoking status: Former Smokeless tobacco: Never Tobacco comments: Social smoker once in a huge while Vaping Use Vaping Use: Never used Substance Use Topics Alcohol use: Yes Comment: social Drug use: Yes Types: Marijuana Comment: once a year Allergies: ALLERGIES Allergen Reactions Seasonal Allergies Other: See Comments Congestion Medications: Prior to Admission Medications Prescriptions Last Dose Informant Patient Reported? Taking? Cetirizine 10 mg cap Unknown Yes No Sig: Take by mouth as needed. SUMATRIPTAN SUCCINATE (IMITREX ORAL) Unknown Patient Yes No Sig: Take by mouth as needed. amLODIPine (NORVASC) 5 mg tablet Past Week Yes Yes Sig: Take 5 mg by mouth once daily. bisoprol/hydrochlorothia zide(ZIAC 2.5 MG-6.25 MG TAB) Not Taking Yes No Sig: Take one(1) tablet daily. cholecalciferol (VITAMIN D3) 1,000 unit tab tablet Past Week Yes Yes Sig: Take by mouth once daily. clobetasol (TEMOVATE) 0.05 % ointment Unknown No No Sig: Apply to affected area 1-2 times per week escitalopram oxalate (LEXAPRO) 10 mg tablet 10/16/2023 No Yes Sig: TAKE ONE TABLET BY MOUTH once DAILY fluticasone (FLONASE) 50 mcg/actuation nasal spray Unknown Yes No Sig: Use 1 [place] in each nostril as needed. losartan-hydroCHLOROthia zide (HYZAAR) 50-12.5 mg per tablet Past Week Yes Yes Sig: TAKE ONE TABLET BY MOUTH EVERY MORNING for blood pressure omeprazole (PRILOSEC) 40 mg capsule Unknown Yes No Sig: TAKE ONE CAPSULE BY MOUTH EVERY DAY before breakfast for 4 weeks then take 1 capsule daily as needed tiZANidine HCl (ZANAFLEX) 4 mg capsule Unknown Yes No Sig: Take 4 mg by mouth three times a day as needed for muscle spasm. Facility-Administered Medications: None Current Facility-Administered Medications Medication Dose Route Frequency adult multivitamin 10 mL, folic acid 1 mg in NaCl 0.9% 1,000 mL INTRAVENOUS q 24 HR And magnesium sulfate iv piggyback in sterile water 2 g 50 mL 2 g INTRAVENOUS q 24 HR traZODone 50 mg tab(s) (DESYREL) 50 mg ORAL AT BEDTIME PRN hydrOXYzine HCl 25 mg tab(s) (ATARAX) 25 mg ORAL QID PRN NaCl 0.9% iv flush bag 20 mL INTRAVENOUS PRN NaCl 0.9% iv infusion 75 mL/hr INTRAVENOUS CONTINUOUS ondansetron 4 mg tab(s) (ZOFRAN) 4 mg ORAL q 6 H PRN Or ondansetron (PF) 4 mg injection (ZOFRAN) 4 mg INTRAVENOUS q 6 H PRN aluminum-magnesium hydroxide-simethicone 200-200-20 mg/5 mL 30 mL 30 mL ORAL DAILY PRN ibuprofen 400 mg tab(s) (MOTRIN) 400 mg ORAL q 6 H PRN melatonin 3 mg tab(s) 3 mg ORAL AT BEDTIME PRN sodium chloride 0.9 % (flush) 2-10 mL (BD POSIFLUSH) 2-10 mL INTRAVENOUS DIRECTED PRN And perflutren lipid microspheres 1.1 mg/mL 1.3 mL injection (DEFINITY) 1.3 mL INTRAVENOUS D (more content not included)... [facility] CONSULT HNO ID: [id number] Author: STEPHANIE MEJÍA APRN.DRY CURE WORKER Service: Psychiatry Author Type: Nurse Practitioner Type: Consults Filed: 10/16/2023 13:15 Note Text: CL NEW - PSYCHIATRY INITIAL CONSULTATION NOTE SERVICE DATE: October 16, 2023 SERVICE TIME: 1245 CONSULTING SERVICE : Psychiatry REASON FOR CONSULTATION: Alcohol Detox Visit Type: In person IDENTIFYING INFO: Ms. Cleveland is a 53 year old female from [place], [place]. RECOMMENDATIONS: 1.) Start Librium taper 25 mg QID x 4 doses then 10 mg QID x 4 doses, then 5 mg QID x 4 doses 2.) CIWA with symptom-triggered Lorazepam 3.) Seizure Precautions 4.) Check GGT 5.) Start Acamprosate 666 mg BID x 2 tomorrow then increase to 999 mg BID 6.) Increase Lexapro 20 mg daily 7.) Consider transfer to [facility] when medically cleared if appropriate DIAGNOSIS: AUD, severe, in w/d MDD, mild HISTORY OF PRESENT ILLNESS : Seen at bedside. Alert and oriented. Calm, pleasant, cooperative. Coherent and a reliable historian. Hx of alcohol abuse. Drinking 2-3 bottles of wine daily for at least the last 5 years. Does experience withdrawal with attempts to abstain. Last drink Thursday afternoon. At home - there were concerns for a seizure. Her son-in-law witnessed what he thought was a convulsing seizure following which she vomited. They called 911. No prior hx of detox. She has done IOP most recently through [facility] 8 months ago but did not finish the program. Currently in AA and has a sponsor but not attending meetings. Does see an outpatient therapist (normally monthly) but has not seen since . No psychiatrist. Prescribed Lexapro by her OBGYN and on 10 mg for the last 10 years. Trialed Naltrexone in the past which made her so dizzy I fainted. No previous psychiatric admissions. No hx of SA. Family history of AUD (siblings). Does Patient Have Any Suicidal Ideations: No PSYCHIATRIC REVIEW OF SYMPTOMS: +depression without SI +difficulty staying asleep The remainder was reviewed and unremarkable. MEDICAL REVIEW OF SYSTEMS: Pertinent Positives: +headache +dizziness +fatigue +cut lip with sutures from falling PSYCHIATRIC HISTORY: Diagnoses: Depression, Anxiety Current Psychiatrist: prescribed Lexapro OBGYN Current Therapist: yes but not seen since March Psychiatric Hospitalization(s): None History of Suicide Attempts: Never Current Outpatient Psychiatric Medications: Lexapro SUBSTANCE ABUSE HISTORY: Alcohol: see HPI Marijuana: experimentation in the past Cocaine: No history of use or dependence Opioids: No history of use or dependence Other Substance Use: hx of smoking but stopped SOCIAL HISTORY: Childhood: very controlling and anabaptist Relationships: Children: 2 adult children Living Situation: with daughter, son-in-law, and grandchild Education: College - Master's Degree Employment: employed full-time Current Supports: family Legal History: n/a Worship Affiliation(s): no FAMILY PSYCHIATRIC HISTORY: Siblings - alcoholism FAMILY HISTORY Problem Relation Age of Onset Hypertension Other Family in gereneral PAST MEDICAL HISTORY Diagnosis Date High blood pressure PMH - PAST MEDICAL HISTORY OF hypertension Rx'd per Dr. Roberto PAST SURGICAL HISTORY Procedure Laterality Date LASIK PAST SURGICAL HISTORY OF 1990 wisdom teeth removed Current Facility-Administered Medications Medication Dose Route Frequency potassium chloride ER 20 mEq tab(s) (KLOR-CON) 20 mEq ORAL ONCE diazePAM 5 mg tab(s) (VALIUM) 5 mg ORAL q 2 H PRN Or diazePAM 10 mg tab(s) (VALIUM) 10 mg ORAL q 2 H PRN adult multivitamin 10 mL, folic acid 1 mg in NaCl 0.9% 1,000 mL INTRAVENOUS q 24 HR And magnesium sulfate iv piggyback in sterile water 2 g 50 mL 2 g INTRAVENOUS q 24 HR thiamine 100 mg tab(s) (VITAMIN B1) 100 mg ORAL/FEEDING TUBE TID traZODone 50 mg tab(s) (DESYREL) 50 mg ORAL AT BEDTIME PRN hydrOXYzine HCl 25 mg tab(s) (ATARAX) 25 mg ORAL QID PRN NaCl 0.9% iv flush bag 20 mL INTRAVENOUS PRN NaCl 0.9% iv infusion 75 mL/hr INTRAVENOUS CONTINUOUS ondansetron 4 mg tab(s) (ZOFRAN) 4 mg ORAL q 6 H PRN Or ondansetron (PF) 4 mg injection (ZOFRAN) 4 mg INTRAVENOUS q 6 H PRN aluminum-magnesium hydroxide-simethicone 200-200-20 mg/5 mL 30 mL 30 mL ORAL DAILY PRN ibuprofen 400 mg tab(s) (MOTRIN) 400 mg ORAL q 6 H PRN melatonin 3 mg tab(s) 3 mg ORAL AT BEDTIME PRN sodium chloride 0.9 % (flush) 2-10 mL (BD POSIFLUSH) 2-10 mL INTRAVENOUS DIRECTED PRN And perflutren lipid microspheres 1.1 mg/mL 1.3 mL injection (DEFINITY) 1.3 mL INTRAVENOUS DIRECTED PRN escitalopram oxalate 10 mg tab(s) (LEXAPRO) 10 mg ORAL DAILY pantoprazole DR 40 mg tab(s) (PROTONIX) 40 mg ORAL DAILY (6 AM) tiZANidine 4 mg tab(s) (ZANAFLEX) 4 mg ORAL TID PRN ALLERGIES Allergen Reactions Seasonal Allergies Other: See Comments Congestion PATIENT DATA: Generalized Anxiety Disorder S (more content not included)... [facility] CONSULT HNO ID: [id number] Author: BIN FUENTES MD Service: Neurology General Author Type: Physician Type: Consults Filed: 10/16/2023 12:46 Note Text: Syncope vs. Convulsive syncope Will check EEG , carotid duplex and ortho changes R/O Cardiac etiology Patient's neuro exam non focal Normal [facility] CONSULT HNO ID: [id number] Author: BIN FUENTES MD Service: Neurology General Author Type: Physician Type: Consults Filed: 10/19/2023 08:02 Note Text: [facility] - Consultation EMELY CLEVELAND : 1970 AGE: 53 SEX: F CSN: [id number] [facility]: Medical LOCATION: [facility] ATTENDING PHYSICIAN: Tod Wong M.D. DATE OF SERVICE: 10/16/2023 TIME OF SERVICE: 12:45 PM CONSULTING PHYSICIAN: Bin Fuentes M.D. HISTORY OF PRESENT ILLNESS: The patient is a 53-year-old white female, right- handed, with a past medical history significant for alcohol abuse, hypertension, hyperlipidemia, gastroesophageal reflux disease, who had been admitted to [facility] with event of transient loss of consciousness. According to the patient, she was at home. She started to feel dizzy, lightheaded, clammy, then she passed out. She had been reported to have some shakiness, but being held by her family member who mentioned that the patient was very pale. No reported tongue biting or bladder or bowel dysfunction or postictal confusion. According to the patient, however, she had a similar event about 3 to 4 years ago. A CAT scan of the brain without contrast had been obtained for the patient on admission, it was negative for any acute intracranial event. PAST MEDICAL HISTORY: As above. PSYCHOSOCIAL HISTORY: The patient is alcoholic and smoked marijuana. REVIEW OF SYSTEMS: As above. She denies any chest pain or palpitation or cough or expectoration, but dizziness and event of passing out. FAMILY HISTORY: Noncontributory to her illness. She denies any history of degenerative brain disease or inherited neuropathic or myopathic illness or myasthenia gravis or MS. WORKUP: CAT scan of the brain as above. Her sodium is 135, chloride 97, BUN is 12, creatinine 0.65, glucose is 124. Her white cell count is 3.68, hemoglobin is 10.7, hematocrit is 31.8. CURRENT MEDICATIONS: She is on multivitamin, Protonix, Lexapro, Librium, vitamin B1,. PHYSICAL EXAMINATION: Vitals on admission: Blood pressure is 143/104, pulse rate was 56, temperature 36.2, respiratory rate was 18, pulse ox was 99%. The patient was alert, oriented x3. No facial asymmetry. Good range of eye movement. Tongue in the midline. Cranial nerves II through XII are grossly intact. Naming, repetition, comprehension, writing, and reading are intact. Motor power in upper and lower extremities is +4/5 bilateral. Deep tendon reflexes +2 bilateral. Plantar reflexes flexor bilateral. Sensory examination for vibration, position, and proprioception within normal. She was afebrile. No neck stiffness. No rigidity. IMPRESSION: Apparently, the patient's neurological examination is nonfocal. She had been reported to have event of transient loss of consciousness consistent with syncope versus convulsive syncope. Suggests to check an EEG, carotid duplex orthostatic changes. At the meantime, cardiac etiology should be ruled out. Bin Fuentes M.D. Neurology [id number] /[id number] [facility] CONSULT PROGon 10-16-2023 CONSULT PROG HNO ID: [id number] Author: SHARITA BEVERLY [facility] Service: Pharmacy Author Type: Pharmacist Type: Consult Progress Note Filed: 10/16/2023 09:22 Note Text: Clinical Pharmacy Consultation - Patient Fall Patient Name: Emely Cleveland Admission Date: 10/15/2023 Service Date and Time: 10/16/2023 9:19 AM Synopsis: Patient experienced a fall when getting up from bedside commode. 10/15/23 2157 10/15/23 2326 10/16/23 0238 10/16/23 0511 BP: 143/81 144/92 143/101 154/92 Potentially Contributing Medications: diazepam Doses of concern: N/A Assessment/Recommendatio ns: Patient to be assisted to/from bed and commode while in acute alcohol withdrawal period and receiving diazepam Thank you, Sharita Beverly, [facility] Pager: [phone] [facility] [address] BRAIN WO IVCONon 10-16-19 CT BRAIN WO IVCON * * *Final Report* * * DATE OF EXAM: Oct 16 2023 6:57AM SARAH 0504 - CT BRAIN WO IVCON / PROCEDURE REASON: Head trauma, coagulopathy (Age 19-64y) * * * * Physician Interpretation * * * * EXAMINATION: CT BRAIN WO IVCON, CT FACIAL BONE/MICHOACANO WO IVCON CLINICAL HISTORY: Head trauma, coagulopathy (Age 19-64y), fall (accession [id number]), Facial trauma, blunt, mouth bleeding post fall, left upper lip laceration (accession [id number]) TECHNIQUE: Serial axial images without IV contrast were obtained from the vertex to the craniocervical junction. Spiral high resolution axial unenhanced images were obtained through the facial bones with sagittal and coronal planar reconstructions. CT Radiation dose: Integrated Dose-Length Product (DLP) for this visit = 778 (accession [id number]), 456 (accession [id number]) mGy*cm CT Dose Reduction Employed: No dose reduction techniques were required (accession [id number]), Automated exposure control(AEC) and iterative recon (accession [id number]) COMPARISON: CT brain 10/15/2023 RESULT: HEAD: Post-operative change: None. Acute change: No evidence of an acute infarct or other acute parenchymal process. Hemorrhage: No evidence of acute intracranial hemorrhage. Mass Lesion / Mass Effect: There is no evidence of an intracranial mass or extraaxial fluid collection. No significant mass effect. Chronic change: Scattered patchy foci of low attenuation are present within supratentorial white matter which is a nonspecific finding but likely represents mild microvascular ischemia. Parenchyma: There is mild generalized volume loss. Ventricles: The ventricles are within normal limits of size and configuration for age. Calvarium: The skull base and imaged soft tissues are unremarkable. FACE: Soft Tissues: No significant superficial soft tissue swelling. Facial bones: No evidence of an acute fracture in the visualized facial bones. Orbits: No evidence of an acute fracture. The globes are intact. The soft tissue planes of the orbits are maintained. Paranasal Sinuses: Similar partially aerated sphenoid opacification and mild to moderate scattered sinus mucosal thickening about the ethmoids and alveolar recesses of the maxillary sinuses. IMPRESSION: No acute intercranial abnormality. No acute displaced maxillary facial bone fracture. Anatomic Variant: None. Assume 7 cervical vertebrae with counting from the craniocervical junction. Physical Education Specialist: [facility] Transcribe Date/Time: Oct 16 2023 6:57A Dictated by : JHOAN ROGEL MD This examination was interpreted and the report reviewed and electronically signed by: JHOAN ROGEL MD on Oct 16 2023 7:05AM EST [id number] [facility] CT FACIAL BONE/MICHOACANO WO IVCON on 10-16-2023 CT FACIAL BONE/MICHOACANO WO IVCON * * *Final Report* * * DATE OF EXAM: Oct 16 2023 6:57AM SARAH 0507 - CT FACIAL BONE/MICHOACANO WO IVCON / PROCEDURE REASON: Facial trauma, blunt * * * * Physician Interpretation * * * * EXAMINATION: CT BRAIN WO IVCON, CT FACIAL BONE/MICHOACANO WO IVCON CLINICAL HISTORY: Head trauma, coagulopathy (Age 19-64y), fall (accession [id number]), Facial trauma, blunt, mouth bleeding post fall, left upper lip laceration (accession [id number]) TECHNIQUE: Serial axial images without IV contrast were obtained from the vertex to the craniocervical junction. Spiral high resolution axial unenhanced images were obtained through the facial bones with sagittal and coronal planar reconstructions. CT Radiation dose: Integrated Dose-Length Product (DLP) for this visit = 778 (accession [id number]), 456 (accession [id number]) mGy*cm CT Dose Reduction Employed: No dose reduction techniques were required (accession [id number]), Automated exposure control(AEC) and iterative recon (accession [id number]) COMPARISON: CT brain 10/15/2023 RESULT: HEAD: Post-operative change: None. Acute change: No evidence of an acute infarct or other acute parenchymal process. Hemorrhage: No evidence of acute intracranial hemorrhage. Mass Lesion / Mass Effect: There is no evidence of an intracranial mass or extraaxial fluid collection. No significant mass effect. Chronic change: Scattered patchy foci of low attenuation are present within supratentorial white matter which is a nonspecific finding but likely represents mild microvascular ischemia. Parenchyma: There is mild generalized volume loss. Ventricles: The ventricles are within normal limits of size and configuration for age. Calvarium: The skull base and imaged soft tissues are unremarkable. FACE: Soft Tissues: No significant superficial soft tissue swelling. Facial bones: No evidence of an acute fracture in the visualized facial bones. Orbits: No evidence of an acute fracture. The globes are intact. The soft tissue planes of the orbits are maintained. Paranasal Sinuses: Similar partially aerated sphenoid opacification and mild to moderate scattered sinus mucosal thickening about the ethmoids and alveolar recesses of the maxillary sinuses. IMPRESSION: No acute intercranial abnormality. No acute displaced maxillary facial bone fracture. Anatomic Variant: None. Assume 7 cervical vertebrae with counting from the craniocervical junction. Physical Education Specialist: [facility] Transcribe Date/Time: Oct 16 2023 6:57A Dictated by : JHOAN ROGEL MD This examination was interpreted and the report reviewed and electronically signed by: JHOAN ROGEL MD on Oct 16 2023 7:05AM EST [id number] Normal [facility] Comprehensive metabolic 2000 panelon 10-16-2023 Albumin [Mass/Vol] 3.9 g/dL Normal 3.9-4.9 [facility] Comment on above: Order Comment: Speci men Type: BLOOD SPECIMENOrdering Facility: [facility] Address: [address] [place] [address] Performed By: #### 2 4323-8, 70375-9, 9, 28663-6, 3016-3, 3040-3 ####[facility]ITAL[facility]IA [id number] [place] [address] [place] ALP [Catalytic activity/Vol] 41 U/L Normal 34-[address] [facility] Comment on above: Order Comment: Speci men Type: BLOOD SPECIMENOrdering Facility: [facility] Address: [address] [place] [address] Performed By: #### 2 4323-8, 24322-1, 9, 44069-2, 3016-3, 3040-3 ####[facility] [id number] [place] [id number] [place] ALT [Catalytic activity/Vol] 80 U/L High 7-[address] [facility] Comment on above: Order Comment: Speci men Type: BLOOD SPECIMENOrdering Facility: [facility] Address: [address] [place], [place] [address] Performed By: #### 2 4323-8, 52678-6, 9, 02993-0, 3016-3, 3040-3 ####[facility]ORYCLIA [id number] [address] [address] [place] Anion gap [Moles/Vol] 14 mmol/L Normal 8-[address] [facility] Comment on above: Order Comment: Speci men Type: BLOOD SPECIMENOrdering Facility: [facility] Address: [address] [place], [place] [address] Performed By: #### 2 4323-8, 99297-8, 2131-12, 21753-5, 3016-3, 3040-3 ####[facility]ORYCLIA [id number] [place] [id number] [place] AST [Catalytic activity/Vol] 86 U/L High 13-[address] [facility] Comment on above: Order Comment: Speci men Type: BLOOD SPECIMENOrdering Facility: [facility] Address: [address] [place], [place] [address] Performed By: #### 2 4323-8, 60397-5, 2131-12, 56579-4, 3016-3, 3040-3 ####[facility]ORYCLIA [id number] [place] [id number] [place] Bilirubin [Mass/Vol] 0.8 mg/dL Normal 0.2-1.3 [facility] Comment on above: Order Comment: Speci men Type: BLOOD SPECIMENOrdering Facility: [facility] Address: [address] [place] [address] Performed By: #### 2 4323-8, 25459-9, 9, 82574-6, 3016-3, 3040-3 ####[facility]ORYCLIA [id number] [address] [address] [place] Calcium [Mass/Vol] 8.5 mg/dL Normal 8.5-10.2 [facility] Comment on above: Order Comment: Speci men Type: BLOOD SPECIMENOrdering Facility: [facility] Address: [facility] [place] [address] Performed By: #### 2 4323-8, 34547-6, 2131-9, 42287-1, 3016-3, 3040-3 ####[facility]ORYCLIA [id number] [address] [address] [place] Chloride [Moles/Vol] 97 mmol/L Low 98-107 [facility] Comment on above: Order Comment: Speci men Type: BLOOD SPECIMENOrdering Facility: [facility] Address: [facility] [place] [address] Performed By: #### 2 4323-8, 15862-6, 9, 75211-9, 3016-3, 3040-3 ####[facility]ORYCLIA [id number] [place] [id number] [place] CO2 [Moles/Vol] 24 mmol/L Normal 22-[address] [facility] Comment on above: Order Comment: Speci men Type: BLOOD SPECIMENOrdering Facility: [facility] Address: [facility] [place] [address] Performed By: #### 2 4323-8, 44932-9, 9, 15380-0, 3016-3, 3040-3 ####[facility]ORYCLIA [id number] [place] [id number] [place] Creatinine [Mass/Vol] 0.65 mg/dL Normal 0.58-0.[address] [facility] Comment on above: Order Comment: Speci men Type: BLOOD SPECIMENOrdering Facility: [facility] Address: [facility] [place] [address] Performed By: #### 2 4323-8, 49671-9, 9, 04582-0, 3016-3, 3040-3 ####[facility]ORYCLIA [id number] [place] [id number] [place] Creatinine and Glomerular filtration rate.predicted panel (S/P/Bld) 105 mL/min/1.73m??? Normal >=[address] [facility] Comment on above: Order Comment: Ruth caldera Type: BLOOD SPECIMENOrdering Facility: [facility] Address: [address] [place] [address] Result Comment: Luisa mated Glomerular Filtration Rate (eGFR) is calculated using the 2020 CKD-EPI creatinine equation. This equation utilizes serum creatinine, sex, and age as parameters. The creatinine assay has traceable calibration to isotope dilution-mass spectrometry. Refer to KDIGO guidelines for clinical interpretation. In patients with unstable renal function, e.g. those with acute kidney injury, the eGFR may not accurately reflect actual GFR. Performed By: #### 2 4323-8, 18641-8, 2131-12, 03276-8, 3016-3, 3040-3 ####[facility]ORYCLIA [id number] [place] [id number] [place] Glucose [Mass/Vol] 124 mg/dL High 74-99 [facility] Comment on above: Order Comment: Ruth caldera Type: BLOOD SPECIMENOrdering Facility: [facility] Address: [address] [place] [address] Result Comment: The [place] [employer] (ADA) provides guidance for cutoff values for fasting glucose and random glucose. The ADA defines fasting as no caloric intake for at least 8 hours. Fasting plasma glucose results between 100 to 125 mg/dL indicate increased risk for diabetes (prediabetes). Fasting plasma glucose results greater than or equal to 126 mg/dL meet the criteria for diagnosis of diabetes. In the absence of unequivocal hyperglycemia, results should be confirmed by repeat testing. In a patient with classic symptoms of hyperglycemia or hyperglycemic crisis, random plasma glucose results greater than or equal to 200 mg/dL meet the criteria for diagnosis of diabetes. Reference: Standards of Medical Care in Diabetes 2016, [place] [employer]. Diabetes Care. 2016.39(Suppl 1). Performed By: #### 2 4323-8, 63974-1, 9, 96735-3, 3016-3, 3040-3 ####[facility]ORYCLIA [id number] [address] [address] [place] Potassium [Moles/Vol] 3.3 mmol/L Low 3.7-5.[address] [facility] Comment on above: Order Comment: Speci men Type: BLOOD SPECIMENOrdering Facility: [facility] Address: [address] [place] [address] Performed By: #### 2 4323-8, 70094-7, 2131-9, 80383-4, 3016-3, 3040-3 ####[facility]ORYCLIA [id number] [place] [id number] [place] Protein [Mass/Vol] 6.0 g/dL Low 6.3-8.0 [facility] Comment on above: Order Comment: Speci men Type: BLOOD SPECIMENOrdering Facility: [facility] Address: [address] [place] [address] Performed By: #### 2 4323-8, 80622-4, 9, 33847-4, 3016-3, 3040-3 ####[facility]ATORYCLIA [id number] [place] [id number] [place] Sodium [Moles/Vol] 135 mmol/L Low 136-144 [facility] Comment on above: Order Comment: Speci men Type: BLOOD SPECIMENOrdering Facility: [facility] Address: [address] [place] [address] Performed By: #### 2 4323-8, 20149-2, 2131-9, 97580-2, 3016-3, 3040-3 ####[facility]ORYCLIA [id number] [place] [id number] [place] Urea nitrogen [Mass/Vol] 12 mg/dL Normal 7-[address] [facility] Comment on above: Order Comment: Speci men Type: BLOOD SPECIMENOrdering Facility: [facility] Address: [address] [place] [address] Performed By: #### 2 4323-8, 38162-7, 2131-9, 35045-3, 3016-3, 3040-3 ####[facility]ATORYCLIA [id number] [place] [id number] [facility] ECHOon 10-16-2023 Echocardiography Echocardiography Rep ort: Transthoracic Echo [facility] Date of service: 10/16/2023 10:43:51 AM Ordering physician: BRANDY VARGAS Indication: Syncope Technologist: Laura Street [facility] Interpreting physician: Zakia Perez MD PATIENT: Name: MS. EMELY CLEVELAND : 1970 Age: 53 years Gender: F Primary rhythm: sinus. Height: 170.18 cm BSA: 1.97 m Weight: 82.10 kg BMI: 28.3 kg/m Heart rate 103 bpm Blood pressure 162/100 mmHg Color Doppler was utilized to interrogate the cardiac valves assessed and spectral Doppler was utilized to determine the flow velocities and pressure gradients reported in this exam. MEASUREMENTS: Value Indexed Normal Max aortic dimension 3.8 cm Ao < 3.8 Left atrial volume 72 ml (biplane A-L) 36 ml/m José Antonio <= 34 LV ID (diastole) 4.0 cm (2D) 2.03 cm/m LV ID (systole) 2.8 cm (2D) 1.42 cm/m IVS, leaflet tips 1.3 cm (2D) Posterior wall thickness 0.8 cm (2D) Left ventricular mass 136 g (2D) 69 g/m LV stroke volume 45 ml (2D biplane) LV end diastolic volume 74 ml (2D biplane) 37.7 ml/m 29<=EDVi<62 LV end systolic volume 29 ml (2D biplane) 14.9 ml/m Ejection Fraction 60 % (2D biplane) EF > 54 FINDINGS: LEFT VENTRICLE The left ventricle is normal in size. There is normal wall thickness. Left ventricular systolic function is normal globally. Indeterminate left ventricular diastolic dysfunction. Wall Motion: All scored segments are normal. Wall Thickness: All scored segments are normal. RIGHT VENTRICLE The right ventricle is normal in size. There is normal wall thickness. Right ventricular systolic function is normal globally. Estimated right atrial pressure is 3 mmHg based on IVC assessment. LEFT ATRIUM The left atrial cavity is normal in size. There is no spontaneous echo contrast noted. RIGHT ATRIUM The right atrial cavity is normal in size. Inferior Vena Cava: The inferior vena cava appears normal measuring 1.7 cm. The vessel decreases greater than 50 percent with inspiration. MITRAL VALVE The mitral valve leaflets are structurally normal. [place] mitral valve. There is no mitral annular calcification. There is no mitral stenosis. There is no mitral valve regurgitation. There is no thickening. There is no calcification. The pressure half time is 47 msec. The peak mitral E/A ratio is 0.78. The mitral flow deceleration time is 161 msec. TRICUSPID VALVE The tricuspid valve leaflets are structurally normal. [place] tricuspid valve. There is no tricuspid annular calcification. There is no tricuspid stenosis. There is no tricuspid valve regurgitation. There is no thickening. There is no calcification. The hepatic venous pattern showed normal systolic flow. AORTIC VALVE The aortic valve cusps are structurally normal. There is no aortic valve stenosis. There is no aortic valve regurgitation. Tricuspid aortic valve. There is no thickening. There is no calcification. The LVOT diameter is 1.9 cm. PULMONIC VALVE The pulmonic valve cusps are structurally normal. There is no pulmonic stenosis. There is no pulmonic valve regurgitation. There is no thickening. There is no calcification. AORTA The visualized aorta is borderline dilated. Measurements - Aortic valve annulus 2.0 cm. Sinus: 3.4 cm. Mid ascending aorta 3.8 cm. PULMONARY ARTERIES The pulmonary arteries are normal. The main pulmonary artery is normal in size. INTERATRIAL SEPTUM The interatrial septum is normal. INTERVENTRICULAR SEPTUM The interventricular septum is normal. There is no flow through the interventricular septum as detected by Doppler. PERICARDIUM The pericardium is normal. There is no pericardial effusion. CONCLUSIONS: - Exam indication: Syncope - The left ventricle is normal in size. Left ventricular systolic function is normal. EF = 60 5% (2D biplane) Indeterminate left ventricular diastolic dysfunction. - The right ventricle is normal in size. Right ventricular systolic function is normal. - There are no significant valvular abnormalities. - The visualized aorta is borderline dilated with a maximal dimension of 3.8 cm. - The patient has not had a prior CC echocardiographic exam for comparison. * * * Final * * * CC [employer] : [id number] ID Normal [facility] ED NOTEon 10-16-2023 ED NOTE HNO ID: [id number] Author: SONJA PADILLA RN Service: ? Author Type: Registered Nurse Type: ED Notes Filed: 10/16/2023 08:41 Note Text: Report called to 4D. Patient given written and verbal d/c instructions. All patient questions addressed and answered. Patient verbalized understanding. Instructed to follow up with PCP and to return to ED if conditions and symptoms persist or worsen. [facility] ED NOTE HNO ID: [id number] Author: SONJA PADILLA RN Service: ? Author Type: Registered Nurse Type: ED Notes Filed: 10/16/2023 07:52 Note Text: LIP at bedside for lac repair. [facility] ED NOTE HNO ID: [id number] Author: SONJA PADILLA RN Service: ? Author Type: Registered Nurse Type: ED Notes Filed: 10/16/2023 07:13 Note Text: Patient down to the ED from 4D after a fall after off the commode this morning. Patient states she thought she was dreaming and then woke up on the floor. Per NOM, aid stepped away after putting patient on commode and patient was on the floor when she returned. Reports HENDRICKSON and mouth pain, lac noted to outer corner of R lip. [facility] ED PROV NOTEon 10-16-2023 ED PROV NOTE HNO ID: [id number] Author: WENDI RAMON DO Service: Emergency Medicine Author Type: Physician Type: ED Provider Notes Filed: 10/16/2023 08:35 Note Text: This is a 53-year-old female who is currently admitted at [facility]. Was brought down to the ED for lip laceration repair. Has 0.5 cm laceration on the left upper lip which extends through the vermilion border. I used a 5-0 Ethilon suture to approximate the vermilion border. Two 5-0 fast-absorbing gut sutures were used to repair the rest of the lip. Patient tolerated procedure well. Sent back to inpatient unit. WENDI RAMON 10/16/23 0835 [facility] HISTORY PHYSICALon HISTORY PHYSICAL HNO ID: [id number] Author: TOD WONG MD Service: General Internal Medicine Author Type: Physician Type: H&P Filed: 10/16/2023 10:48 Note Text: HISTORY AND PHYSICAL EXAMINATION PLEASE DO NOT REMOVE FROM THE CHART OR MODIFY PRINTED COPY Patient Name: Emely Cleveland PRIMARY CARE PHYSICIAN: Jhoan Roberto MD ADMITTING PHYSICIAN: Tod Wong MD MD CHIEF COMPLAINT: Syncope HPI: This is a 53 year old female who presents with hypertension hyperlipidemia EtOH abuse KENDALL CPAP anxiety depression. Patient admitted from a 1 the patient had episode of syncope patient is drinking 2 bottles of wine every day for minimizing her dizziness and feels good feeling currently patient is comfortable patient says he has done detox in the past family think patient might have a seizure due to alcohol withdrawal currently patient is comfortable some shakiness PAST MEDICAL HISTORY: PAST MEDICAL HISTORY Diagnosis Date High blood pressure PMH - PAST MEDICAL HISTORY OF hypertension Rx'd per Dr. Roberto PAST SURGICAL HISTORY: PAST SURGICAL HISTORY Procedure Laterality Date LASIK PAST SURGICAL HISTORY OF 1990 wisdom teeth removed FAMILY HISTORY: FAMILY HISTORY Problem Relation Age of Onset Hypertension Other Family in gereneral SOCIAL HISTORY: Social History Tobacco Use Smoking status: Former Smokeless tobacco: Never Tobacco comments: Social smoker once in a huge while Vaping Use Vaping Use: Never used Substance Use Topics Alcohol use: Yes Comment: social Drug use: Yes Types: Marijuana Comment: once a year ALLERGIES: ALLERGIES Allergen Reactions Seasonal Allergies Other: See Comments Congestion PRIOR TO ADMISSION MEDICATIONS: escitalopram oxalate (LEXAPRO) 10 mg tablet, TAKE ONE TABLET BY MOUTH once DAILY, Disp: 90 tablet, Rfl: 3, 10/16/2023 losartan-hydroCHLOROthia zide (HYZAAR) 50-12.5 mg per tablet, TAKE ONE TABLET BY MOUTH EVERY MORNING for blood pressure, Disp: , Rfl: , Past Week cholecalciferol (VITAMIN D3) 1,000 unit tab tablet, Take by mouth once daily., Disp: , Rfl: , Past Week amLODIPine (NORVASC) 5 mg tablet, Take 5 mg by mouth once daily., Disp: , Rfl: 1, Past Week tiZANidine HCl (ZANAFLEX) 4 mg capsule, Take 4 mg by mouth three times a day as needed for muscle spasm., Disp: , Rfl: , Unknown omeprazole (PRILOSEC) 40 mg capsule, TAKE ONE CAPSULE BY MOUTH EVERY DAY before breakfast for 4 weeks then take 1 capsule daily as needed, Disp: , Rfl: , Unknown Cetirizine 10 mg cap, Take by mouth as needed., Disp: , Rfl: , Unknown clobetasol (TEMOVATE) 0.05 % ointment, Apply to affected area 1-2 times per week, Disp: 45 g, Rfl: 5, Unknown fluticasone (FLONASE) 50 mcg/actuation nasal spray, Use 1 [place] in each nostril as needed., Disp: , Rfl: , Unknown SUMATRIPTAN SUCCINATE (IMITREX ORAL), Take by mouth as needed. , Disp: , Rfl: , Unknown bisoprol/hydrochlorothia zide(ZIAC 2.5 MG-6.25 MG TAB), Take one(1) tablet daily., Disp: , Rfl: 0, Not Taking REVIEW OF SYSTEMS: GENERAL: No weight loss, malaise or fevers HEENT: Negative for frequent or significant headaches, No changes in hearing or vision, no nose bleeds or other nasal problems NECK: Negative for lumps, goiter, pain and significant neck swelling RESPIRATORY: Negative for cough, hemoptysis, wheezing, COPD, dyspnea or shortness of breath CARDIOVASCULAR: Negative for chest pain, leg swelling, hypertension, CHF or palpitations GI: No nausea, vomiting, or diarrhea MUSCULOSKELETAL: Negative for joint pain or swelling, back pain or muscle pain SKIN: Negative for lesions, rash, and itching HEMATOLOGY/LYMPHOLOGY: Negative for prolonged bleeding, bruising easily or swollen nodes ENDOCRINE: Negative for cold or heat intolerance, polyuria, polydipsia and goiter NEURO: No history of headaches, syncope, paralysis, seizures or tremors All other reviewed and negative other than HPI. PHYSICAL EXAM: Patient Vitals for the past 24 hrs: BP Temp Temp src Pulse Resp SpO2 Height Weight 10/16/23 0931 162/100 -- -- 110 -- -- -- -- 10/16/23 0930 178/93 37.1 ?C (98.8 ?F) Oral 100 18 94 % -- -- 10/16/23 0511 154/92 37.4 ?C (99.3 ?F) Oral 102 17 96 % -- -- 10/16/23 0238 143/101 37.5 ?C (99.5 ?F) -- (!) 134 -- 96 % -- -- 10/15/23 2326 144/92 36.7 ?C (98.1 ?F) Oral (!) 140 17 97 % -- -- 10/15/23 2157 143/81 37 ?C (98.6 ?F) Oral 111 18 97 % -- -- 10/15/23 1805 134/78 36.6 ?C (97.9 ?F) Oral 90 18 99 % 170.2 cm (5' 7 ) 82.3 kg (181 lb 8 oz) General appearance: well appearing, alert, in no acute distress, and well-hydrated, well nourished Skin: Skin color, texture, turgor normal, no suspicious rashes or lesions Head: normal Eyes: Anicteric sclera. Pupils are equally round and reactive to light. Extraocular movements are intact. Ears: external ears normal, canals clear, TM's normal Nose/Sinuses: Negative Oropharynx: Lips, mucosa, and tongue normal, teeth and g (more content not included)... Normal [facility] Lactate (Bld) [Moles/Vol]on 10-16-2023 Lactate [Moles/Vol] 1.3 mmol/L Normal 0.5-2.2 [facility] Comment on above: Order Comment: Speci men Type: BLOOD SPECIMENOrdering Facility: [facility] Address: [address] [place] [address] Performed By: #### 3 2693-4 ####[facility] LABORATORYCLIA [id number] [place] [id number] [place] Lipase SerPl-cCncon 10-16-19 24 Lipase [Catalytic activity/Vol] 85 U/L High 16-[address] [facility] Comment on above: Order Comment: Speci men Type: BLOOD SPECIMENOrdering Facility: [facility] Address: [address] [place] [address] Performed By: #### 2 4323-8, 49696-1, 2132-9, 31027-3, 3016-3, 3040-3 ####[facility] LABORATORYCLIA [id number] [place] [id number] [place] Lipid 1996 panelon 4 Cholesterol [Mass/Vol] 319 mg/dL High <[address] [facility] Comment on above: Order Comment: Speci men Type: BLOOD SPECIMENOrdering Facility: [facility] Address: [address] [place] [address] Result Comment: <200 mg/dL, Desirable 200-239 mg/dL, Borderline high >239 mg/dL, High Performed By: #### 2 4323-8, 77643-1, 2131-12, 76116-7, 3016-3, 3040-3 ####[facility] LABORATORYCLIA [id number] [address] [place], [place] [address] [place] Cholesterol in HDL [Mass/Vol] 134 mg/dL Normal >[address] [facility] Comment on above: Order Comment: Speci men Type: BLOOD SPECIMENOrdering Facility: [facility] Address: [address] [place] [address] Result Comment: 40-5 9 mg/dL, Acceptable >59 mg/dL, High: Negative risk factor for coronary heart disease <40 mg/dL, Low: Positive risk factor for coronary heart disease Performed By: #### 2 4323-8, 45837-5, 9, 08684-6, 3016-3, 3040-3 ####[facility] LABORATORYCLIA [id number] [address] [place], [place] [address] [facility] [place] Cholesterol in LDL [Mass/Vol] 162 mg/dL High <[address] [facility] Comment on above: Order Comment: Speci men Type: BLOOD SPECIMENOrdering Facility: [facility] Address: [address] [place] [address] Result Comment: <100 mg/dL, Optimal 100-129 mg/dL, Near optimal/above optimal 130-159 mg/dL, Borderline high 160-189 mg/dL, High >189 mg/dL, Very high Secondary prevention optimal LDL Cholesterol levels are recommended to be < 70 mg/dL Performed By: #### 2 4323-8, 03511-5, 9, 29240-3, 3016-3, 3040-3 ####[facility]REG[facility] LABORATORYCLIA [id number] [address] [place] Cholesterol in LDL/Cholesterol in HDL [Mass ratio] 1.21 {ratio} Normal <2.[address] [facility] Comment on above: Order Comment: Speci men Type: BLOOD SPECIMENOrdering Facility: [facility] Address: [address] [place] [address] Result Comment: Wayne osorio: 1. National Cholesterol Education Program ATP III Guideline At-A-Glance Quick Desk Reference: National Heart, Lung, and Blood [place]. National Institutes of Health. 2001: NIH Publication No. 01-3305. 2. An International Atherosclerosis Society position paper: global recommendations for the management of dyslipidemia: executive summary, Atherosclerosis. 2014: 232(2):410-413. Performed By: #### 2 4323-8, , 2131-12, 12975-8, 3016-3, 3040-3 ####CON[facility]REG[facility] LABORATORYCLIA [id number] [place] [id number] [place] Cholesterol in VLDL [Mass/Vol] 23 mg/dL Normal <[address] [facility] Comment on above: Order Comment: Speci men Type: BLOOD SPECIMENOrdering Facility: [facility] Address: [address] [place] [address] Performed By: #### 2 4323-8, , 2131-12, 37612-5, 3016-3, 3040-3 ####[facility]REG[facility] LABORATORYCLIA [id number] [place] [id number] [place] Cholesterol non HDL [Mass/Vol] 185 mg/dL High <[address] [facility] Comment on above: Order Comment: Speci men Type: BLOOD SPECIMENOrdering Facility: [facility] Address: [address] [place] [address] Result Comment: <130 mg/dL, Optimal 130-159 mg/dL, Near optimal/above optimal 160-189 mg/dL, Borderline high 190-219 mg/dL, High >219 mg/dL, Very high Secondary prevention optimal non HDL Cholesterol levels are recommended to be <100 mg/dL Performed By: #### 2 4323-8, 28701-3, 2132-9, 86494-2, 3016-3, 3040-3 ####CON[facility]REGATIONAL LABORATORYCLIA [id number] [place] [id number] [place] Cholesterol.total/Ch olesterol in HDL [Mass ratio] 2.38 {ratio} Normal <5.[address] [facility] Comment on above: Order Comment: Speci men Type: BLOOD SPECIMENOrdering Facility: [facility] Address: [address] [place] [address] Performed By: #### 2 4323-8, 00368-6, 9, 76396-9, 3016-3, 3040-3 ####[facility]REG[facility] LABORATORYCLIA [id number] [place] [id number] [place] FASTING TIME 10 hrs Normal [facility] Comment on above: Order Comment: Speci men Type: BLOOD SPECIMENOrdering Facility: [facility] Address: [address] [place] [address] Performed By: #### 2 3-8, 91683-2, 9, 05270-9, 3016-3, 3040-3 ####CON[facility]REG[facility] LABORATORYCLIA [id number] [place] [id number] [place] Triglyceride [Mass/Vol] 114 mg/dL Normal <[address] [facility] Comment on above: Order Comment: Speci men Type: BLOOD SPECIMENOrdering Facility: [facility] Address: [address] [place] [address] Result Comment: <150 mg/dL, Normal 150-199 mg/dL, Borderline high 200-499 mg/dL, High >499 mg/dL, Very high Performed By: #### 2 4323-8, 03791-3, 9, 56454-4, 3016-3, 3040-3 ####[facility] LABORATORYCLIA [id number] [place] [id number] [place] Magnesium SerPl-mCncon 10-15 Magnesium [Mass/Vol] 2.1 mg/dL Normal 1.7-2.3 [facility] Comment on above: Order Comment: Speci men Type: BLOOD SPECIMENOrdering Facility: [facility] Address: [address] [place] [address] Performed By: #### 2 4323-8, 33710-5, 2132-9, 43138-1, 3016-3, 3040-3 ####[facility] LABORATORYCLIA [id number] [address] [place] NURSING PROGon 10-16-2023 NURSING PROG HNO ID: [id number] Author: ANGIE JACOB, MASSIMO Service: ? Author Type: Registered Nurse Type: Nursing Progress Note Filed: 10/16/2023 05:31 Note Text: Patient called to use the commode. Patient was assisted to commode. While on the commode staff member briefly left the room to gather supplies. When reentering the room patient was found on the floor. [facility] NUTRITIONon 10-16-2023 NUTRITION HNO ID: [id number] Author: IRENE RITTER RD Service: Nutrition Therapy Author Type: Registered Dietitian Type: Nutrition Filed: 10/16/2023 14:17 Note Text: NUTRITION THERAPY INITIAL ASSESSMENT SERVICE DATE: 10/16/2023 SERVICE TIME: 1137 Nutrition Assessment: Recommended Malnutrition Diagnosis: Moderate Protein-Calorie Malnutrition In the context of: Social/Environmental Circumstance Based on: Unintentional Weight Loss, Insufficient Energy Intake Nutrition Diagnosis: Problem: Suboptimal protein/energy intake Related to: Substance use As evidenced by: Food/nutrition related history, Patient/family self-report, Medical condition, Depletion of fat/muscle stores, Weight loss Care Plan: Continue current diet Supplements: Ensure Clear, Powerade Zero Vitamins and Minerals: Multivitamin with minerals, Thiamine, Folic Acid Monitor and Evaluation: Meet greater than 75% of estimated needs, Monitor labs, I/Os, vital signs, weight, Monitor fluid/electrolyte balance Discharge Recommendations: Diet Diet: regualr HPI: admit to medical to withdraw/detox. Had a fall and went to ED for suture. Back to medical floor. Hx depression, anxiety KENDALL Intake History: Nutrition Intake Prior to Admission: Less than 75% estimated energy needs (no breakfast. brunch is cheese, fruit and maybe crackers. dinner is small half portion. drinks after work and earlier on weekends. takes B complexd and D when remembers. does drink Gatorade, orange juice and 1 milk per day) greater than or equal to 3 months Current Nutrition Intake: Unable to determine (missed breakfast gettin lip sutured) Dosing Weight: 71.7 kg (158 lb 1.1 oz) Dosing Weight Type: Current weight ([facility]) Estimated kilocalorie needs: 1792- 2151 Calorie Calculation Method: 25-30 kcals/kg Estimated protein needs (grams): 71- 85 Grams protein determined by: 1.0 - 1.2 g/kg Diet Orders (From admission, onward) Start Ordered 10/15/231899 DIET REGULAR START NOW 10/15/231851 Anthropometrics: Height: 170.2 cm (5' 7 ) Weight: 82.3 kg (181 lb 8 oz) Usual Weight: 87.1 kg (192 lb) Feb 2023 Usual Weight Obtained From: Patient Body mass index is 28.43 kg/m?. Weight change percentage over time: 6.9% in 10 days, 17% in 7 Weight Change: Clinically signficant weight loss Physical Exam: Subcutaneous fat loss: No fat loss (notices weight loss in butt) Muscle loss: Mild Potential micronutrient deficiency: No deficiency identified Edema/Ascites: No edema GI Symptoms: Nausea, Vomiting, Diarrhea Functional Status: Not related to malnutrition status Potential Signs of Inflammation: Chronic condition HTN HLD MNT Billing: $ Initial Assessment: 1-15 minutes SIGNATURE: Irene Ritter RD PATIENT NAME: Emely [place] DATE: October 16, 2023 TIME: 2:14 PM [facility] SEPSIS LACTATEon 10-16-2023 Lactate [Moles/Vol] 1.6 mmol/L Normal 0.0-2.0 [facility] Comment on above: Order Comment: Speci men Type: BLOOD SPECIMENOrdering Facility: [facility] Address: [address] [place] [address] Performed By: #### S LACT ####CONGREGATIONAL LABORATORYCLIA [id number] [place] [address] [place] TSH SerPl-aCncon 10-16-2023 TSH Qn 3.520 m[IU]/L Normal 0.270-4.[address] [facility] Comment on above: Order Comment: Speci men Type: BLOOD SPECIMENOrdering Facility: [facility] Address: [address] [place] [address] Performed By: #### 2 4323-8, 88155-6, 2131-9, 34328-7, 3016-3, 3040-3 ####CON[facility]REG[facility] LABORATORYCLIA [id number] [place] [id number] [place] Vit B12 SerPl-mCncon 024 Cobalamin (Vitamin B12) [Mass/Vol] 746 pg/mL Normal 232-[address] [facility] Comment on above: Order Comment: Speci men Type: BLOOD SPECIMENOrdering Facility: [facility] Address: [address] [place] [address] Performed By: #### 2 4323-8, 94191-0, 9, 21142-6, 3016-3, 3040-3 ####CON[facility]REG[facility] LABORATORYCLIA [id number] [place] [id number] [place] CBC W Auto Differential pane l (Bld)on 10-15-2023 Basophils (Bld) [#/Vol] 0.05 10*3/uL Normal <0.11 [facility] Comment on above: Order Comment: Speci men Type: BLOOD SPECIMENOrdering Facility: [facility] Address: [address] [place] [address] Performed By: #### 5 7021-8 ####[facility] LABORATORYCLIA [id number] [place] [place] [address] [place] Basophils/100 WBC (Bld) 1.4 % Normal [facility] Comment on above: Order Comment: Speci men Type: BLOOD SPECIMENOrdering Facility: [facility] Address: [address] [place] [address] Performed By: #### 5 7021-8 ####[facility] LABORATORYCLIA [id number] [place] [address] [place] Differential cell count method Nom (Bld) Auto Normal [facility] Comment on above: Order Comment: Speci men Type: BLOOD SPECIMENOrdering Facility: [facility] Address: [address] [place] [address] Performed By: #### 5 7021-8 ####[facility] LABORATORYIA [id number] [place], [place] [address] [place] [address] [place] Eosinophils (Bld) [#/Vol] 0.10 10*3/uL Normal <0.46 [facility] Comment on above: Order Comment: Speci men Type: BLOOD SPECIMENOrdering Facility: [facility] Address: [address] [place] [address] Performed By: #### 5 7021-8 ####[facility] LABORATORYIA [id number] [address] [place] Eosinophils/100 WBC (Bld) 2.9 % Normal [facility] Comment on above: Order Comment: Speci men Type: BLOOD SPECIMENOrdering Facility: [facility] Address: [address] [place] [address] Performed By: #### 5 7021-8 ####[facility] M[facility]Z MEDICAL CENTERIA [id number] [address] [place] Erythrocyte distribution width (RBC) [Ratio] 13.1 % Normal 11.5-15.0 [facility] Comment on above: Order Comment: Speci men Type: BLOOD SPECIMENOrdering Facility: [facility] Address: [address] [place] [address] Performed By: #### 5 7021-8 ####[facility] LABORATORYIA [id number] [place] [address] [facility] OF [place] Hematocrit (Bld) [Volume fraction] 36.4 % Normal 36.0-46.0 [facility] Comment on above: Order Comment: Speci men Type: BLOOD SPECIMENOrdering Facility: [facility] Address: [address] [place] [address] Performed By: #### 5 7021-8 ####[facility] LABORATORYIA [id number] [place] [address] [place] Hemoglobin (Bld) [Mass/Vol] 12.0 g/dL Normal 11.5-15.5 [facility] Comment on above: Order Comment: Speci men Type: BLOOD SPECIMENOrdering Facility: [facility] Address: [address] [place] [address] Performed By: #### 5 7021-8 ####[facility] LABORATORYCLIA [id number] [facility] [place] [address] [place] Immature granulocytes (Bld) [#/Vol] 0.04 10*3/uL Normal <0.10 [facility] Comment on above: Order Comment: Speci men Type: BLOOD SPECIMENOrdering Facility: [facility] Address: [address] [place] [address] Performed By: #### 5 7021-8 ####[facility] LABORATORYIA [id number] [address] [place] Immature granulocytes/100 WBC (Bld) 1.1 % Normal [facility] Comment on above: Order Comment: Speci men Type: BLOOD SPECIMENOrdering Facility: [facility] Address: [address] [place] [address] Performed By: #### 5 7021-8 ####[facility] MEDICAL CENTERIA [id number] [place] [address] [place] Lymphocytes (Bld) [#/Vol] 1.55 10*3/uL Normal 1.00-4.00 [facility] Comment on above: Order Comment: Speci men Type: BLOOD SPECIMENOrdering Facility: [facility] Address: [address] [place] [address] Performed By: #### 5 7021-8 ####[facility] LABORATORYIA [id number] [place] [id number] [place] Lymphocytes/100 WBC (Bld) 44.5 % Normal [facility] Comment on above: Order Comment: Speci men Type: BLOOD SPECIMENOrdering Facility: [facility] Address: [address] [place] [address] Performed By: #### 5 7021-8 ####[facility] LABORATORYIA [id number] [place] [address] [place] MCH (RBC) [Entitic mass] 33.3 pg Normal 26.0-34.0 [facility] Comment on above: Order Comment: Speci men Type: BLOOD SPECIMENOrdering Facility: [facility] Address: [address] [place] [address] Performed By: #### 5 7021-8 ####[facility] MEDICAL CENTERIA [id number] [place] [address] [place] MCHC (RBC) [Mass/Vol] 33.0 g/dL Normal 30.5-36.0 [facility] Comment on above: Order Comment: Speci men Type: BLOOD SPECIMENOrdering Facility: [facility] Address: [address] [place] [address] Performed By: #### 5 7021-8 ####[facility] MEDICAL CENTERIA [id number] [address] [place] MCV (RBC) [Entitic vol] 101.1 fL High 80.0-100.0 [facility] Comment on above: Order Comment: Speci men Type: BLOOD SPECIMENOrdering Facility: [facility] Address: [address] [place] [address] Performed By: #### 5 7021-8 ####[facility] MEDICAL CENTERIA [id number] [place] [address] [place] Monocytes (Bld) [#/Vol] 0.45 10*3/uL Normal <0.87 [facility] Comment on above: Order Comment: Speci men Type: BLOOD SPECIMENOrdering Facility: [facility] Address: [address] [place] [address] Performed By: #### 5 7021-8 ####[facility] LABORATORYIA [id number] [place] [address] [place] Monocytes/100 WBC (Bld) 12.9 % Normal [facility] Comment on above: Order Comment: Speci men Type: BLOOD SPECIMENOrdering Facility: [facility] Address: [address] [place] [address] Performed By: #### 5 7021-8 ####[facility] LABORATORYIA [id number] [place] [address] [place] Neutrophils (Bld) [#/Vol] 1.29 10*3/uL Low 1.45-7.50 [facility] Comment on above: Order Comment: Speci men Type: BLOOD SPECIMENOrdering Facility: [facility] Address: [address] [place] [address] Performed By: #### 5 7021-8 ####[facility] MED[facility] CENTERIA [id number] [place] [id number] [place] Neutrophils/100 WBC (Bld) 37.2 % Normal [facility] Comment on above: Order Comment: Speci men Type: BLOOD SPECIMENOrdering Facility: [facility] Address: [address] [place] [address] Performed By: #### 5 7021-8 ####[facility] MEDICAL CENTERIA [id number] [place] [address] [place] Nucleated RBC (Bld) [#/Vol] 0.04 10*3/uL High <0.01 [facility] Comment on above: Order Comment: Speci men Type: BLOOD SPECIMENOrdering Facility: [facility] Address: [address] [place] [address] Performed By: #### 5 7021-8 ####[facility] MED[facility] CENTERIA [id number] [place] [address] [place] Nucleated RBC/100 WBC (Bld) [Ratio] 1.1 /100 WBC Normal [facility] Comment on above: Order Comment: Speci men Type: BLOOD SPECIMENOrdering Facility: [facility] Address: [address] [place] [address] Performed By: #### 5 7021-8 ####[facility] LABORATORYIA [id number] [place] [address] [place] Platelet mean volume (Bld) [Entitic vol] 9.3 fL Normal 9.0-12.7 [facility] Comment on above: Order Comment: Speci men Type: BLOOD SPECIMENOrdering Facility: [facility] Address: [address] [place] [address] Performed By: #### 5 7021-8 ####[facility] LABORATORYCLIA [id number] [facility] [place] [address] [place] Platelets (Bld) [#/Vol] 100 10*3/uL Low 150-400 [facility] Comment on above: Order Comment: Speci men Type: BLOOD SPECIMENOrdering Facility: [facility] Address: [address] [place] [address] Result Comment: No c lot detected. Performed By: #### 5 7021-8 ####[facility] MED[facility] CENTERIA [id number] [place] [address] [place] RBC (Bld) [#/Vol] 3.60 10*6/uL Low 3.90-5.20 [facility] Comment on above: Order Comment: Speci men Type: BLOOD SPECIMENOrdering Facility: [facility] Address: [address] [place] [address] Performed By: #### 5 7021-8 ####[facility] CENTERIA [id number] [place] [address] [place] WBC (Bld) [#/Vol] 3.48 10*3/uL Low 3.70-11.00 [facility] Comment on above: Order Comment: Speci men Type: BLOOD SPECIMENOrdering Facility: [facility] Address: [address] [place] [address] Performed By: #### 5 7021-8 ####[facility] LABORATORYCLIA [id number] [place] [address] [place] [address] BRAIN WO IVCONon 10-15-[address] BRAIN WO IVCON * * *Final Report* * * DATE OF EXAM: Oct 15 2023 11:31AM [facility] 0504 - CT BRAIN WO IVCON / PROCEDURE REASON: Headache, sudden, severe * * * * Physician Interpretation * * * * EXAMINATION: CT BRAIN WO IVCON CLINICAL HISTORY: Syncope TECHNIQUE: Serial axial images without IV contrast were obtained from the vertex to the foramen magnum. MQ: CTBWO_3 CT Radiation dose: Integrated Dose-Length Product (DLP) for this visit = 778 mGy*cm CT Dose Reduction Employed: Automated exposure control(AEC) and iterative recon COMPARISON: None. RESULT: Post-operative change: None. Acute change: No evidence of an acute infarct or other acute parenchymal process. Hemorrhage: No evidence of acute intracranial hemorrhage. ECASS hemorrhagic transformation score: Not Applicable Mass Lesion / Mass Effect: There is no evidence of an intracranial mass or extraaxial fluid collection. No significant mass effect. Chronic change: Scattered patchy foci of low attenuation are present within supratentorial white matter which is a nonspecific finding but likely represents mild microvascular ischemia. Parenchyma: There is moderate generalized volume loss. Ventricles: Ventricular enlargement concordant with the degree of parenchymal volume loss. Paranasal sinuses and skull base: The visualized paranasal sinuses are grossly clear. The skull base and imaged soft tissues are unremarkable. Localizer images: No additional findings. IMPRESSION: NO CT EVIDENCE OF ACUTE INTRACRANIAL PROCESS. Physical Education Specialist: PSCB Transcribe Date/Time: Oct 15 2023 11:46A Dictated by : LYNN FORMAN MD This examination was interpreted and the report reviewed and electronically signed by: LYNN FORMAN MD on Oct 15 2023 11:48AM EST [id number] Normal [facility] Comprehensive metabolic 2000 panelon 10-15-2023 Albumin [Mass/Vol] 4.4 g/dL Normal 3.9-4.9 [facility] Comment on above: Order Comment: Ruth caldera Type: BLOOD SPECIMENOrdering Facility: [facility] Address: [address] [place] [address] Performed By: #### 2 4323-8, 3040-3, 84309-6 ####[facility] LABORATORYCLIA [id number] [facility] [address] [place] ALP [Catalytic activity/Vol] 50 U/L Normal 34-123 [facility] Comment on above: Order Comment: Ruth caldera Type: BLOOD SPECIMENOrdering Facility: [facility] Address: [address] [place] [address] Performed By: #### 2 4323-8, 3040-3, ####[facility]ORATORYCLIA [id number] [place] [address] [place] ALT [Catalytic activity/Vol] 108 U/L High 7-38 [facility] Comment on above: Order Comment: Speci men Type: BLOOD SPECIMENOrdering Facility: [facility] Address: [address] [place] [address] Performed By: #### 2 4323-8, 3040-3, ####[facility] LABORATORYCLIA [id number] [place] [address] [place] Anion gap [Moles/Vol] 24 mmol/L High 8-15 [facility] Comment on above: Order Comment: Speci men Type: BLOOD SPECIMENOrdering Facility: [facility] Address: [address] [place] [address] Performed By: #### 2 4323-8, 0-3, ####[facility]ORATORYCLIA [id number] [place] [address] [place] AST [Catalytic activity/Vol] 108 U/L High 13-35 [facility] Comment on above: Order Comment: Speci men Type: BLOOD SPECIMENOrdering Facility: [facility] Address: [address] [place] [address] Performed By: #### 2 4323-8, 0-3, ####[facility]ORATORYCLIA [id number] [facility] [address] [place] Bilirubin [Mass/Vol] 0.5 mg/dL Normal 0.2-1.3 [facility] Comment on above: Order Comment: Speci men Type: BLOOD SPECIMENOrdering Facility: [facility] Address: [address] [place] [address] Performed By: #### 2 4323-8, 3040-3, ####[facility]ORATORYCLIA [id number] [place] [address] [place] Calcium [Mass/Vol] 9.5 mg/dL Normal 8.5-10.2 [facility] Comment on above: Order Comment: Speci men Type: BLOOD SPECIMENOrdering Facility: [facility] Address: [address] [place], [place] [address] [id number] Performed By: #### 2 4323-8, 3040-3, ####[facility]ATORYCLIA [id number] [place] [address] [place] Chloride [Moles/Vol] 93 mmol/L Low 98-107 [facility] Comment on above: Order Comment: Speci men Type: BLOOD SPECIMENOrdering Facility: [facility] Address: [address] [place], [place] [id number] Performed By: #### 2 4323-8, 3, ####[facility]ATORYCLIA [id number] [place] [address] [place] CO2 [Moles/Vol] 18 mmol/L Low 22-30 [facility] Comment on above: Order Comment: Speci men Type: BLOOD SPECIMENOrdering Facility: [facility] Address: [address] [place] [address] Performed By: #### 2 4323-8, 3, ####[facility]ORATORYCLIA [id number] [place] [address] [place] Creatinine [Mass/Vol] 0.70 mg/dL Normal 0.58-0.96 [facility] Comment on above: Order Comment: Speci men Type: BLOOD SPECIMENOrdering Facility: [facility] Address: [address] [place] [address] Performed By: #### 2 4323-8, 03, ####[facility]ORATORYCLIA [id number] [place] [address] [place] Creatinine and Glomerular filtration rate.predicted panel (S/P/Bld) 104 mL/min/1.73m??? Normal >=60 [facility] Comment on above: Order Comment: Ruth caldera Type: BLOOD SPECIMENOrdering Facility: [facility] Address: [address] [place] [address] Result Comment: Luisa mated Glomerular Filtration Rate (eGFR) is calculated using the 2020 CKD-EPI creatinine equation. This equation utilizes serum creatinine, sex, and age as parameters. The creatinine assay has traceable calibration to isotope dilution-mass spectrometry. Refer to KDIGO guidelines for clinical interpretation. In patients with unstable renal function, e.g. those with acute kidney injury, the eGFR may not accurately reflect actual GFR. Performed By: #### 2 4323-8, 3040-3, ####[facility]ORATORYCLIA [id number] [facility] [id number] [place] Glucose [Mass/Vol] 125 mg/dL High 74-99 [facility] Comment on above: Order Comment: Ruth caldera Type: BLOOD SPECIMENOrdering Facility: [facility] Address: [address] [place] [address] Result Comment: The [place] [employer] (ADA) provides guidance for cutoff values for fasting glucose and random glucose. The ADA defines fasting as no caloric intake for at least 8 hours. Fasting plasma glucose results between 100 to 125 mg/dL indicate increased risk for diabetes (prediabetes). Fasting plasma glucose results greater than or equal to 126 mg/dL meet the criteria for diagnosis of diabetes. In the absence of unequivocal hyperglycemia, results should be confirmed by repeat testing. In a patient with classic symptoms of hyperglycemia or hyperglycemic crisis, random plasma glucose results greater than or equal to 200 mg/dL meet the criteria for diagnosis of diabetes. Reference: Standards of Medical Care in Diabetes 2016, [place] [employer]. Diabetes Care. 2016.39(Suppl 1). Performed By: #### 2 4323-8, 3040-3, 11460-2 ####[facility]ATORYCLIA [id number] [place] [address] [place] Potassium [Moles/Vol] 3.8 mmol/L Normal 3.7-5.1 [facility] Comment on above: Order Comment: Ruth caldera Type: BLOOD SPECIMENOrdering Facility: [facility] Address: [address] [place] [address] Performed By: #### 2 4323-8, 3040-3, ####[facility]ORATORYCLIA [id number] [place] [address] [place] Protein [Mass/Vol] 7.1 g/dL Normal 6.3-8.0 [facility] Comment on above: Order Comment: Speci men Type: BLOOD SPECIMENOrdering Facility: [facility] Address: [address] [place] [address] Performed By: #### 2 4323-8, 3040-3, ####[facility] CENTERIA [id number] [place] [address] [place] Sodium [Moles/Vol] 135 mmol/L Low 136-144 [facility] Comment on above: Order Comment: Speci men Type: BLOOD SPECIMENOrdering Facility: [facility] Address: [address] [place] [address] Performed By: #### 2 4323-8, 3040-3, ####[facility] CENTERIA [id number] [place] [address] [place] Urea nitrogen [Mass/Vol] 12 mg/dL Normal 7-21 [facility] Comment on above: Order Comment: Speci men Type: BLOOD SPECIMENOrdering Facility: [facility] Address: [facility] [place] [address] Performed By: #### 2 4323-8, 3040-3, ####[facility] CENTERIA [id number] [place] [address] [place] ECG COMPLETEon 10-15-2023 ECG COMPLETE Ventricular Rate : 6 3 BPM Atrial Rate : 63 BPM P-R Interval : 148 ms QRS Duration : 85 ms Q-T Interval : 437 ms QTC Calculation(Bazett) : 448 ms Calculated P [place] : 55 degrees Calculated R [place] : 53 degrees Calculated T [place] : [address] elev, probable normal early repol pattern Normal ECG 1015 NSR NO STEMI Confirmed by MD DANIELLEEVETTE ([id number]), editor index THA REHMAN ([id number]) on 10/16/2023 9:26:00 AM NAME : EMELY CLEVELAND PID : [id number] : 1970 Gender : Female Race : ORD : [id number] Procedure Date : Oct 15 2023 10:14:03 Edit Date : Oct 16 2023 09:26:07 Diagnosis: Sinus rhythm ST elev, probable normal early repol pattern Normal ECG 1015 NSR NO STEMI Confirmed by MD SANTOS CHRISTOPHER ([id number]), editor index THA REHMAN ([id number]) on 10/16/2023 9:26:00 AM Test Reason : Chest Pain Location : 302 : ED AVED-16 Overread By : MD SANTOS CHRISTOPHER Edited By : THA REHMAN Referred By : , Acquired by : [id number], [facility] ED NOTEon 10-15-2023 ED NOTE HNO ID: [id number] Author: ALICE ALEGRIA RN Service: ? Author Type: Registered Nurse Type: ED Notes Filed: 10/15/2023 17:54 Note Text: Report called to MASSIMO Eden at [facility] ED NOTE HNO ID: [id number] Author: ALICE ALEGRIA RN Service: ? Author Type: Registered Nurse Type: ED Notes Filed: 10/15/2023 15:10 Note Text: [facility] ED NOTE HNO ID: [id number] Author: ALICE ALEGRIA RN Service: ? Author Type: Registered Nurse Type: ED Notes Filed: 10/15/2023 12:20 Note Text: Patient unable to provide a urine sample at this time. [facility] ED NOTE HNO ID: [id number] Author: ALICE ALEGRIA RN Service: ? Author Type: Registered Nurse Type: ED Notes Filed: 10/15/2023 11:24 Note Text: Patient's daughter at bedside. Krystina DIAZ updating family and patient. Pt states she is interested in detox after medical admission. [facility] ED NOTE HNO ID: [id number] Author: ALICE ALEGRIA RN Service: ? Author Type: Registered Nurse Type: ED Notes Filed: 10/15/2023 10:52 Note Text: Pt cleaned up and placed in clean gown and brief. Pt placed on cardiac monitor technician. Seizure pads in place. HOB elevated 45 degrees and suction at bedside. [facility] ED NOTE HNO ID: [id number] Author: ALICE ALEGRIA, MASSIMO Service: ? Author Type: Registered Nurse Type: ED Notes Filed: 10/15/2023 10:49 Note Text: Patient brought in for witnessed syncopal episode from home. Pt has been taking muscle relaxers for 2 weeks for a degenerative disk in her lower back and has been drinking alcohol with them. Pt states she felt like she had to have a bowel movement and was dizzy and lightheaded. Pt states she told her son in law that she felt like she was going to faint so he caught her before she fell and lowered her to the ground. Pt states she drinks around 2 bottles of wine per day and her last drink was around 8 pm last night. [facility] ED NOTE HNO ID: [id number] Author: ALICE ALEGRIA RN Service: ? Author Type: Registered Nurse Type: ED Notes Filed: 10/15/2023 10:51 Note Text: Pt vomiting on arrival and appears diaphoretic and pale. Verbal order for Zofran and 1L NS bolus obtained from EMILY Flaherty. [facility] ED NOTE HNO ID: [id number] Author: CINDY ORTEZ RN Service: ? Author Type: Registered Nurse Type: ED Notes Filed: 10/15/2023 10:00 Note Text: Bed: ED-16 Expected date: Expected time: Means of arrival: Comments: CAROL [facility] ED PROV NOTEon 10-15-2023 ED PROV NOTE HNO ID: [id number] Author: EVETTE SANTOS MD Service: Emergency Medicine Author Type: Physician Type: ED Provider Notes Filed: 10/17/2023 14:41 Note Text: ED Provider Note Patient Name: Emely Cleveland : 1970 SERVICE DATE: 10/15/23 History Patient presents with: Syncope Alcohol Problem Patient is a 53-year-old female with a past medical history of hypertension, hyperlipidemia, GERD, alcohol use who presents today for evaluation of a syncopal episode. Patient states that she was diagnosed with degenerative disc disease in her lower back a few weeks ago. She was prescribed muscle relaxers. She has been sitting on the couch and not doing very much since then. She has not been eating or drinking well. She has had an increase in her alcohol intake. Patient states that she has been drinking 2 bottles of wine a day. Her last drink was around 8 PM last evening. Today she started to feel nauseous and overall did not feel well. Patient's family tried to get her off the couch and she had a syncopal episode. They helped lower her to the ground. She did not hit her head. Patient had vomiting and bowel and bladder incontinence. On arrival, patient is still nauseous and vomiting. She is also endorsing heartburn. She denies a history of alcohol withdrawal or seizures. She denies chest pain, shortness of breath, SI or HI. History provided by: Patient and relative PAST MEDICAL HISTORY Diagnosis Date High blood pressure PMH - PAST MEDICAL HISTORY OF hypertension Rx'd per Dr. Roberto PAST SURGICAL HISTORY Procedure Laterality Date LASIK PAST SURGICAL HISTORY OF 1990 wisdom teeth removed FAMILY HISTORY Problem Relation Age of Onset Hypertension Other Family in gereneral Social History Tobacco Use Smoking status: Former Smokeless tobacco: Never Tobacco comments: Social smoker once in a huge while Vaping Use Vaping Use: Never used Substance and Sexual Activity Alcohol use: Yes Comment: social Drug use: Yes Types: Marijuana Comment: once a year Sexual activity: Not Currently ALLERGIES Allergen Reactions Seasonal Allergies Other: See Comments Congestion Review of Systems Respiratory: Negative for shortness of breath. Cardiovascular: Negative for chest pain. Gastrointestinal: Positive for nausea and vomiting. Negative for abdominal pain. Neurological: Positive for dizziness and headaches. All other systems reviewed and are negative. Physical Exam Vitals [10/15/23 1009] BP Pulse Temp Temp src Resp SpO2 Weight Height 143/104 66 36.2 ?C (97.1 ?F) Temporal 18 99 % 71.7 kg (158 lb) -- Physical Exam Vitals and nursing note reviewed. Constitutional: Appearance: She is ill-appearing. HENT: Head: Normocephalic and atraumatic. Cardiovascular: Rate and Rhythm: Normal rate and regular rhythm. Heart sounds: Normal heart sounds. Pulmonary: Effort: Pulmonary effort is normal. Breath sounds: Normal breath sounds. Abdominal: Palpations: Abdomen is soft. Tenderness: There is no abdominal tenderness. Skin: General: Skin is warm and dry. Neurological: General: No focal deficit present. Mental Status: She is alert and oriented to person, place, and time. Diagnostic Testing ED Labs Ordered and Reviewed COMPLETE BLOOD COUNT AND DIFFERENTIAL - Abnormal; Notable for the following components: Result Value Ref Range WBC 3.48 (*) 3.70 - 11.00 k/uL RBC 3.60 (*) 3.90 - 5.20 m/uL MCV 101.1 (*) 80.0 - 100.0 fL Platelet Count 100 (*) 150 - 400 k/uL Abs Neut 1.29 (*) 1.45 - 7.50 k/uL Absolute nRBC 0.04 (*) <0.01 k/uL All other components within normal limits COMPREHENSIVE METABOLIC PANEL - Abnormal; Notable for the following components: AST 108 (*) 13 - 35 U/L ALT 108 (*) 7 - 38 U/L Glucose 125 (*) 74 - 99 mg/dL Sodium 135 (*) 136 - 144 mmol/L Chloride 93 (*) 98 - 107 mmol/L CO2 18 (*) 22 - 30 mmol/L Anion Gap 24 (*) 8 - 15 mmol/L All other components within normal limits LIPASE - Abnormal; Notable for the following components: Lipase 88 (*) 16 - 61 U/L All other components within normal limits HIGH SENSITIVITY TROPONIN T (INITIAL) - Abnormal; Notable for the following components: EDER High Sensitivity 12 (*) <12 ng/L All other components within normal limits ETHANOL/ALCOHOL - Abnormal; Notable for the following components: Ethanol 117 (*) <11 mg/dL All other components within normal limits SEPSIS LACTATE W/ REFLEX (INITIAL) - Abnormal; Notable for the following components: Sepsis Lactate 5.9 (*) 0.0 - 2.0 mmol/L All other components within normal limits SEPSIS LACTATE W/ REFLEX (SECOND) - Abnormal; Notable for the following components: Sepsis Lactate 4.7 (*) 0.0 - 2.0 mmol/L All other components within normal limits MAGNESIUM - Normal COVID AND INFLUENZA A/B AND RSV NAAT, EXPEDITED - Normal Narrative: This test has been authorized by FDA under an Emergency Use Authoriz (more content not included)... Normal [facility] Ethanol [facility] 06-27-2 024 Ethanol [Mass/Vol] 117 mg/dL High <11 [facility] Comment on above: Order Comment: Speci men Type: BLOOD SPECIMENOrdering Facility: [facility] Address: [address] [place] [address] Result Comment: Valu es > 80 mg/dL may indicate intoxication Performed By: #### 5 643-2 ####[facility]ORATORYCLIA [id number] [place] [address] [place] FLUABV+SARS-CoV-2+RSV Pnl Re sp EMILIANO+probeon 10-15-2023 FLUABV+SARS-CoV-2+RS V Pnl Resp EMILIANO+probe COVID 19 RESULT: Not detected The method used is RT-PCR or an equivalent NAAT method. Reference Range(the expected result in uninfected individuals): Not detected INFLUENZA A PCR: Not detected INFLUENZA B PCR: Not detected RSV PCR: Not detected Normal [facility] Comment on above: Performed By: #### 9 5941-1 #### [facility] CLIA [id number] [place] [address] [place] HIGH SENSITIVITY TROPONIN T (INITIAL)on 10-15-2023 Troponin T.cardiac High sensitivity method [Mass/Vol] 12 ng/L High <12 [facility] Comment on above: Order Comment: Speci men Type: BLOOD SPECIMENOrdering Facility: [facility] Address: [address] [place] [address] Performed By: #### L [id number] ####[facility]ORATORYCLIA [id number] [place] [address] [place] HIGH SENSITIVITY TROPONIN T (SECOND)on 10-15-2023 Troponin T.cardiac High sensitivity method [Mass/Vol] 13 ng/L High <12 [facility] Comment on above: Order Comment: Speci men Type: BLOOD SPECIMENOrdering Facility: [facility] Address: [address] [place] [address] Performed By: #### L [id number] ####[facility]ORATORYCLIA [id number] [place] [address] [place] HIGH SENSITIVITY TROPONIN T (THIRD) 3 HRS AFTER INITIALon 10-15-2023 Troponin T.cardiac High sensitivity method [Mass/Vol] 13 ng/L High <12 [facility] Comment on above: Order Comment: Speci men Type: BLOOD SPECIMENOrdering Facility: [facility] Address: [address] [place] [address] Performed By: #### L [id number] ####[facility] CENTERIA [id number] [place] [address] [place] Lipase SerPl-cCncon 10-15-19 24 Lipase [Catalytic activity/Vol] 88 U/L High 16-61 [facility] Comment on above: Order Comment: Speci men Type: BLOOD SPECIMENOrdering Facility: [facility] Address: [address] [place] [address] Performed By: #### 2 4323-8, 3040-3, 80808-1 ####[facility] [id number] [place] [id number] [place] Magnesium SerPl-mCncon 10-14 Magnesium [Mass/Vol] 1.9 mg/dL Normal 1.7-2.3 [facility] Comment on above: Order Comment: Speci men Type: BLOOD SPECIMENOrdering Facility: [facility] Address: [address] [place] [address] Performed By: #### 2 4323-8, 3040-3, ####[facility] CENTERIA [id number] [place] [address] [place] SEPSIS LACTATE W/ REFLEX (IN ITIAL)on 10-15-2023 Lactate [Moles/Vol] 5.9 mmol/L High 0.0-2.0 [facility] Comment on above: Order Comment: Speci men Type: BLOOD SPECIMENOrdering Facility: [facility] Address: [address] [place] [address] Performed By: #### S LACTR ####[facility] [id number] [place] [address] [place] SEPSIS LACTATE W/ REFLEX (SE COND)on 10-15-2023 Lactate [Moles/Vol] 4.7 mmol/L High 0.0-2.0 [facility] Comment on above: Order Comment: Speci men Type: BLOOD SPECIMENOrdering Facility: [facility] Address: [address] [place] [address] Performed By: #### S LACT2 ####[facility]ORATORYCLIA [id number] [facility] [place] [address] [place] XR CHEST 1V FRONTAL PORTon 0 10-15-2023 XR CHEST 1V FRONTAL PORT * * *Final Report* * * DATE OF EXAM: Oct 15 2023 10:25AM VHX [id number] - XR CHEST 1V FRONTAL PORT / PROCEDURE REASON: Syncope/presyncope * * * * Physician Interpretation * * * * EXAMINATION: CHEST RADIOGRAPH (PORTABLE SINGLE VIEW AP) Exam Date/Time: 10/15/2023 10:25 AM CLINICAL HISTORY: Syncope/presyncope MQ: XCPR_5 Comparison: None RESULT: Lines, tubes, and devices: None. Lungs and pleura: The lungs are grossly clear. Cardiomediastinal silhouette: Exaggerated cardiomediastinal silhouette. Other: No bony abnormalities. IMPRESSION: NO ACUTE CARDIOPULMONARY PROCESS. Physical Education Specialist: ELAINE Transcribe Date/Time: Oct 15 2023 10:41A Dictated by : LYNN FORMAN MD This examination was interpreted and the report reviewed and electronically signed by: LYNN FORMAN MD on Oct 15 2023 10:41AM EST [id number] Normal [facility] CNOVon 10-05-2023 CNOV Office Visit (CHANTELLONGCarter ) -------- EMELY CLEVELAND ([id number]) 1970 F Date Time Provider Department 10/05/23 3:30 PM O'MANNING, KELLY L AVONGY During your visit today, we recorded the following information about you: Pulse Blood pressure Weight Height 102/minute 104/76 77 kg 1.702 m Last Period 03/06/23 Kelly Ames APRN.DRY CURE WORKER 10/05/2023 4:03 PM Signed S: This is a 53 yr old here for her annual exam without complaints. LMP about 6 months ago, only occasional HF. 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 Last menses: 02/2023 HRT use: no Sexually active: not currently active Last pap test: 2020 H/o abnormal pap: ASCUS with neg HPV 2020 Last mammogram: 05/2023, cat 1 H/o abnormal mammogram: no Family hx breast cancer: no REVIEW OF SYSTEMS: Abdomen: No abdominal pain, nausea, vomiting, diarrhea, or constipation. No bloating, early satiety, indigestion, or increased flatulence. Bladder: No dysuria, gross hematuria, urinary frequency, urinary urgency, or incontinence. Breast: No breast lumps, nipple d/c, overlying skin changes, redness or skin retraction. Allergies and current medication updated:Yes I have reviewed and updated the patient's medical, surgical, and family histories as well as the medication AND allergy lists. O: BP 104/76 Pulse 102 Ht 170.2 cm (5' 7 ) Wt 77 kg (169 lb 12.1 oz) LMP 06/06/2022 (Exact Date) BMI 26.59 kg/m? EXAM: GENERAL: pleasant, female in no apparent distress HEENT: Normocephalic, atraumatic, mucus membranes moist and no lesions NECK: Supple, full range of motion DERMATOLOGY: Normal, without lesions, non-icteric and non-hirsute BREAST: soft, non-tender, symmetric, no dominant mass, normal nipple-areolar complex, no lymphadenopathy and no nipple discharge CHEST: Normal inspiratory effort ABDOMEN: soft, non-tender and no masses PELVIC: Atrophic appearance to external and internal genitalia BIMANUAL: uterus normal size, shape and consistency, no adnexal masses and non-tender RECTOVAGINAL: deferred. NEURO: alert and oriented x 3, exam grossly normal EXTREMITIES: normal ASSESSMENT: Normal HOME CARE SCHEDULER exam Breast cancer screening PLAN: Pap done Encouraged/reviewed BSE Mammogram ordered Recommended 1404-4760 mg calcium intake with Vit D and weight bearing exercises, written info given FU 1 year/rita Ames APRN.Kelly Solorzano APRN.CELIA 10/05/2023 3:53 PM Signed Calcium and Vitamin D Supplementation (from the National Institutes of Health Office of Dietary Supplements 2010) Calcium is required by the body for blood vessel, muscle, hormone and nerve functioning. Most of the body's calcium is stored in the bones and teeth where it supports structure and function. Bone is continuously broken down and reformed. When bone breakdown exceeds formation, especially in postmenopausal women, bone loss can increase the risk of osteoporosis and fractures. In addition to low calcium intake, women who smoke, have a family history of osteoporosis, are thin, or , or who take certain medications such as cancer chemotherapy, seizure mediations and steroids are at increased risk of osteoporosis. The calcium requirements in women change with age. The National Institutes of Health (NIH) recommends: 1000mg elemental calcium for premenopausal women age 19-50 1200mg elemental calcium for postmenopausal women and all women over 50 Milk, yogurt, and cheese are rich natural sources of calcium and are the major food contributors in the [place]. For example, 8oz of milk (whole, lowfat or skim) contains about 300mg calcium, 8oz of yogurt contains 415mg. Nondairy sources include salmon and sardines and vegetables, such as [place] cabbage, kale, and broccoli. Foods fortified with calcium include many fruit juices, tofu and cereals. For more food calcium content information, visit http://ods.od.nih.gov/fa ctsheets/calcium. Calcium supplements come in several different forms. Remember that the recommendations are for millgrams (mg) of elemental calcium which may be less than the total weight of the supplement. The amount of elemental calcium is required to be printed on the label. Calcium carbonate is the least expensive form. It must be taken on a full stomach to be properly absorbed. Some patients may experience gas or constipation. Calcium phosphate and calcium citrate may be taken either with or without food and tend to have less side effects but are generally more expensive. Because of its ability to neutralize stomach acid, calcium carbonate is found in some snqh-hdf-ucorigj antacid products, such as Tums? and Rolaids?. Depending on its strength, each chewable pill or softchew provides 200 to 400 mg of elemental calcium. The percentage of calcium absorbed depends on the total amount of elemental calci (more content not included)... Normal [facility] HIGH RISK HUMAN PAPILLOMA NERY (HPV), PCR FOR DETECTION AND GENOTYPINGon 10-05-2023 HPV 16 Ag Ql (Unsp spec) Not detected Normal Not detected [facility] Comment on above: Order Comment: Speci men Type: FLUID SPECIMEN Ordering Facility: [facility] Address: [address] [place] [address] Performed By: #### L [id number], HPVHRT #### [facility] CLIA [id number] [address] [place] [address] [place] HPV 18 Ag Ql (Unsp spec) Not detected Normal Not detected [facility] Comment on above: Order Comment: Speci men Type: FLUID SPECIMEN Ordering Facility: [facility] Address: [address] [place] [address] Performed By: #### L [id number], HPVHRT #### [facility] CLIA [id number] [address] [place] [address] [place] HPV 31+33+35+39+45+51+52 +56+58+59+66+68 DNA EMILIANO+probe Ql (Cvx) Not detected Normal Not detected [facility] Comment on above: Order Comment: Speci men Type: FLUID SPECIMEN Ordering Facility: [facility] Address: [address] [place] [address] Result Comment: High Risk HPV Other Type includes HPV types 31, 33, 35, 39, 45, 51, 52, 56, 58, 59, 66 and 68. Performed By: #### L [id number], HPVHRT #### [facility] CLIA [id number] [address] [place] [address] [place] PAP TESTon 10-05-2023 ADEQUACY Satisfactory for interpretation. Normal [facility] Comment on above: Order Comment: Speci men Type: FLUID SPECIMEN Ordering Facility: [facility] Address: [address] [place] [address] Performed By: #### L [id number], HPVHRT #### [facility] CLIA [id number] [address] [place] [address] [place] CASE REPORT Normal [facility] Comment on above: Order Comment: Speci men Type: FLUID SPECIMEN Ordering Facility: [facility] Address: [address] [place] [address] Result Comment: Gyne cologic Cytology Report Case: [id number] Authorizing Provider: Kelly Ames, Collected: 10/05/2023 04:07 PM FLOWER PICKER.DRY CURE WORKER Ordering Location: Obstetrics/Gynecology Received: 10/06/2023 05:22 AM First Screen: Gmitro, Kam, CT, ASCP Rescreen: Carmen Loyd Specimen: Pap Test, ThinPrep, Cervix Performed By: #### L [id number], HPVHRT #### [facility] CLIA [id number] [address] [place] [address] [place] CLINICAL HISTORY, CYTOLOGY, HOME CARE SCHEDULER Routine Exam Normal [facility] Comment on above: Order Comment: Speci men Type: FLUID SPECIMEN Ordering Facility: [facility] Address: [address] [place] [address] Result Comment: Post Menopausal Performed By: #### L [id number], HPVHRT #### [facility] CLIA [id number] [address] [place] [address] [place] FINAL PERFORMING LAB Normal [facility] Comment on above: Order Comment: Speci men Type: FLUID SPECIMEN Ordering Facility: [facility] Address: [address] [place] [address] Result Comment: Tech nical component, hydramatic specialist screening performed at [facility], [address] [place], [place] [id number] CLIA# [id number] Diagnostic interpretation performed at [facility], [address] [place], [place] [id number] CLIA# [id number] Registration Officer: Asad Amato M.D. Performed By: #### L [id number], HPVHRT #### [facility] CLIA [id number] [address] [place] [address] [place] HPV REFLEX Yes HPV Normal [facility] Comment on above: Order Comment: Speci men Type: FLUID SPECIMEN Ordering Facility: [facility] Address: [address] [place] [address] Performed By: #### L [id number], HPVHRT #### [facility] CLIA [id number] [address] [place] [address] [place] INTERPRETATION, CYTOLOGY, HOME CARE SCHEDULER Normal [facility] Comment on above: Order Comment: Speci men Type: FLUID SPECIMEN Ordering Facility: [facility] Address: [address] [place] [address] Result Comment: Nega tive for intraepithelial lesion or malignancy. Performed By: #### L [id number], HPVHRT #### [facility] CLIA [id number] [address] [place] [address] [place] PAP DISCLAIMER COMMENT The Pap Smear is a screening test for cervical cancer. False negative results occur with all screening tests, emphasizing the need for rescreening at recommended intervals, and clinical correlation. Normal [facility] Comment on above: Order Comment: Speci men Type: FLUID SPECIMEN Ordering Facility: [facility] Address: [address] [place] [address] Performed By: #### L [id number], HPVHRT #### [facility] CLIA [id number] [address] [place] [address] [place] PAP TERRA COTTA ROOFER HELPER COMMENT This specimen has be en analyzed by the ThinPrep Imaging System, an automated imaging and review system, which assists the laboratory in evaluating cells on ThinPrep Pap tests. Following automated imaging, selected ferris from every slide are reviewed by a hydramatic specialist. Normal [facility] Comment on above: Order Comment: Speci men Type: FLUID SPECIMEN Ordering Facility: [facility] Address: [address] [place] [address] Performed By: #### L [id number], [facility] #### [facility] CLIA [id number] [address] [place] [address] [place] [address] [place] US ABDOMEN COMPLETEon 2023 US ABDOMEN COMPLETE Interpreted By: Raul Smyth, STUDY: US ABDOMEN COMPLETE; 09/26/2023 8:44 am INDICATION: 53 y/o F with Signs/Symptoms:f/u GB polyp and enlarged liver. COMPARISON: None. ACCESSION NUMBER(S): [id number] ORDERING CLINICIAN: JHOAN ROBERTO TECHNIQUE: Routine ultrasound of the abdomen was performed. Static images were obtained for remote interpretation. FINDINGS: LIVER: Craniocaudal length: 21.9 cm, enlarged Echogenicity: Coarsened and hyperechoic Mass: None. BILE DUCTS: Intrahepatic ducts: Non-dilated Common bile duct diameter: 6 mm GALLBLADDER: Gallbladder: 6 mm gallbladder wall polyp Gallstones: None. Gallbladder sludge: None. Gallbladder wall thickening: None. Pericholecystic fluid: None. PANCREAS: Visualized portions are unremarkable. SPLEEN: Craniocaudal length: 10.5 cm, Within normal limits of size for age. No focal splenic lesion. RIGHT KIDNEY: Craniocaudal length: 12.1 cm, Within normal limits of size for age. No hydronephrosis, hydroureter or focal renal lesion. LEFT KIDNEY: Craniocaudal length: 13.4 cm, Within normal limits of size for age. No hydronephrosis, hydroureter or focal renal lesion. ABDOMINAL AORTA AND IVC: Visualized portions are unremarkable. PERITONEAL FLUID: None. IMPRESSION: Coarsened and hyperechoic hepatic parenchyma, compatible with steatosis or hepatocellular disease. Hepatomegaly. 6 mm gallbladder wall polyp. MACRO: None Signed by: Raul Sheikh 09/28/2023 8:56 AM Dictation workstation: [id number] Normal [facility] Basic metabolic 2000 panelon 09-25-2023 Anion gap [Moles/Vol] 23 mmol/L High 10-20 [facility] Comment on above: Performed By: #### 2 4321-2 ####DIRK Krishnan ([id number])[facility] ([facility])[address] [place] [address] Calcium [Mass/Vol] 9.8 mg/dL Normal 8.6-10.6 [facility] Comment on above: Performed By: #### 2 4321-2 ####DIRK CALLE L ([id number])[facility] ([facility])[address] [place] [address] Chloride [Moles/Vol] 86 mmol/L Low 98-107 [facility] Comment on above: Performed By: #### 2 4321-2 ####DIRK CALLE L ([id number])[facility] ([facility])[address] [place] [address] CO2 [Moles/Vol] 26 mmol/L Normal 21-32 [facility] Comment on above: Performed By: #### 2 4321-2 ####DIRK CALLE L ([id number])[facility] ([facility])[address] [place] [address] Creatinine [Mass/Vol] 0.87 mg/dL Normal 0.50-1.05 [facility] Comment on above: Performed By: #### 2 4321-2 ####DIRK CALLE L ([id number])[facility] ([facility])[address] [place] [address] Glomerular filtration rate/1.73 sq M.predicted 80 mL/min/1.73m*2 Normal >60 [facility] Comment on above: Result Comment: Calc ulations of estimated GFR are performed using the 2020 CKD-EPI Study Refit equation without the race variable for the IDMS-Traceable creatinine methods. https://jasn.asnjournals.org/content//ASN.2347393 988 Performed By: #### 2 4321-2 ####DIRK CALLE L ([id number])[facility] ([facility])[address] [place] [address] Glucose [Mass/Vol] 100 mg/dL High 74-99 [facility] Comment on above: Performed By: #### 2 4321-2 ####DIRK Krishnan ([id number])[facility] ([facility])[address] [place] [address] Potassium [Moles/Vol] 3.7 mmol/L Normal 3.5-5.3 [facility] Comment on above: Performed By: #### 2 4321-2 ####DIRK Krishnan ([id number])[facility] ([facility])[address] [place] [address] Sodium [Moles/Vol] 131 mmol/L Low 136-145 [facility] Comment on above: Performed By: #### 2 4321-2 ####DIRK Krishnan ([id number])[facility] ([facility])[address] [place] [address] Urea nitrogen [Mass/Vol] 12 mg/dL Normal 6-23 [facility] Comment on above: Performed By: #### 2 4321-2 ####DIRK Krishnan ([id number])[facility] ([facility])[address] [place] [address] CBC panel Auto (Bld)on 09-24 Erythrocyte distribution width (RBC) [Ratio] 12.4 % Normal 11.5-14.5 [facility] Comment on above: Performed By: #### 5 8410-2 ####DIRK Krishnan ([id number])[facility] ([facility])[address] [place] [address] Hematocrit (Bld) [Volume fraction] 38.7 % Normal 36.0-46.0 [facility] Comment on above: Performed By: #### 5 8410-2 ####DIRK Krishnan ([id number])[facility] ([facility])[address] [place] [address] Hemoglobin (Bld) [Mass/Vol] 13.1 g/dL Normal 12.0-16.0 [facility] Comment on above: Performed By: #### 5 8410-2 ####DIRK Krishnan ([id number])[facility] ([facility])[address] [place] [address] MCH (RBC) [Entitic mass] 32.8 pg Normal 26.0-34.0 [facility] Comment on above: Performed By: #### 5 8410-2 ####DIRK Krishnan ([id number])[facility] ([facility])[address] [place] [address] MCHC (RBC) [Mass/Vol] 33.9 g/dL Normal 32.0-36.0 [facility] Comment on above: Performed By: #### 5 8410-2 ####DIRK Krishnan ([id number])[facility] ([facility])[address] [place] [address] MCV (RBC) [Entitic vol] 97 fL Normal 80-100 [facility] Comment on above: Performed By: #### 5 8410-2 ####DIRK Krishnan ([id number])[facility] ([facility])[address] [place] [address] Nucleated RBC/100 WBC (Bld) [Ratio] 0.0 /100 WBCs Normal 0.0-0.0 [facility] Comment on above: Performed By: #### 5 8410-2 ####DIRK Krishnan (29921)[facility] ([facility])[address] [place] [address] Platelets (Bld) [#/Vol] 135 x10*3/uL Low 150-450 [facility] Comment on above: Performed By: #### 5 8410-2 ####DIRK Krishnan ([id number])[facility] ([facility])[address] [place] [address] RBC (Bld) [#/Vol] 4.00 x10*6/uL Normal 4.00-5.20 [facility] Comment on above: Performed By: #### 5 8410-2 ####DIRK Krishnan (95225)[facility] ([facility])[address] [place] [address] WBC (Bld) [#/Vol] 3.2 x10*3/uL Low 4.4-11.3 [facility] Comment on above: Performed By: #### 5 8410-2 ####DIRK Krishnan (70779)[facility] ([facility])[address] [place] [address] Ferritinon 09-25-2023 Ferritin [Mass/Vol] 1601 ng/mL High 8-150 [facility] Comment on above: Performed By: #### 2 276-4 ####DIRK Krishnan (68963)[facility] ([facility])[address] [place] [address] Gamma glutamyl transferaseon 09-25-2023 Gamma glutamyl transferase [Catalytic activity/Vol] 842 U/L High 5-55 [facility] Comment on above: Performed By: #### 2 324-2 ####DIRK Krishnan ([id number])[facility] ([facility])[address] [place] [address] Hepatic function 2000 panelo n 09-25-2023 Albumin BCP dye [Mass/Vol] 5.0 g/dL Normal 3.4-5.0 [facility] Comment on above: Performed By: #### 2 4325-3 ####DIRK Krishnan ([id number])[facility] ([facility])[address] [place] [address] ALP [Catalytic activity/Vol] 41 U/L Normal 33-110 [facility] Comment on above: Performed By: #### 2 4325-3 ####DIRK Krishnan (44649)[facility] ([facility])[address] [place] [address] ALT With P-5'-P [Catalytic activity/Vol] 91 U/L High 7-45 [facility] Comment on above: Result Comment: Tammy ents treated with Sulfasalazine may generate falsely decreased results for ALT. Performed By: #### 2 4325-3 ####DIRK CALLE L ([id number])[facility] ([facility])[address] [facility] [place] [address] AST With P-5'-P [Catalytic activity/Vol] 101 U/L High 9-39 [facility] Comment on above: Performed By: #### 2 4325-3 ####DIRK CANALESMOTZER L ([id number])[facility] ([facility])[address] [facility] [place] [address] Bilirubin [Mass/Vol] 0.9 mg/dL Normal 0.0-1.2 [facility] Comment on above: Performed By: #### 2 4325-3 ####DIRK CANALESMOTZER L (11992)[facility] ([facility])[address] [facility] [place] [address] Bilirubin.direct [Mass/Vol] 0.3 mg/dL Normal 0.0-0.3 [facility] Comment on above: Performed By: #### 2 4325-3 ####DIRK CANALESMOPUSHPA L (85060)[facility] ([facility])[address] [facility] [place] [address] Protein [Mass/Vol] 7.8 g/dL Normal 6.4-8.2 [facility] Comment on above: Performed By: #### 2 4325-3 ####DIRK CANALESMOTZER L (94061)[facility] ([facility])[address] [facility] [place] [address] [facility] 05-24-2023 [facility] HNO ID: [id number] Author: COORDINATOR, MAMMOGRAPHY, ? Service: ? Author Type: Physician Type: Letter Filed: 05/24/2023 13:52 Note Text: May 25, 2023 PID: [id number] Emely Cleveland [address] [place] [address] Dear Ms. Cleveland, We are pleased to inform you that the results of your recent breast imaging exam on 05/22/2023 are normal. Early detection of cancer is very important. We also understand recommendations regarding breast cancer screening are controversial. Please discuss with your primary care provider which strategy is best for you and whether a mammogram is right for you. Your imaging studies and report will be kept on file at [facility] as part of your permanent medical record and are available for your continuing care. Thank you for allowing us to help in meeting your health care needs. Sincerely, Dr. Sierra Interpreting Radiologist [facility] (Normal over 40) Normal [facility] SCREENING W TOMOon 05-22 [facility] SCREENING W BRITTANI * * *Final Report* * * DATE OF EXAM: May 22 2023 3:16PM NWW [id number] - [facility] SCREENING W BRITTANI / PROCEDURE REASON: Encounter for screening mammogram for malignant neoplasm of breast * * * * Physician Interpretation * * * * RESULT: #[id number] - [facility] SCREENING W BRITTANI BILATERAL DIGITAL SCREENING MAMMOGRAM TOMOSYNTHESIS WITH CAD: 05/22/2023 HISTORY: Encounter For Screening Mammogram For Malignant Neoplasm Of Breast / Screening Mammogram-Patient reports NO symptoms. RESULT: TECHNIQUE: The study was acquired using full field digital technology and interpreted from soft copy. Digital Breast Tomosynthesis (DBT) images were obtained and used to assist in the interpretation of this examination. Current study was also evaluated with a Computer Aided Detection (CAD). Comparison is made to exams dated: 01/08/2022 mammogram, 06/06/2021 mammogram, 09/27/2020 mammogram, 09/27/2020 ultrasound - [facility], and 08/17/2020 mammogram - [facility]. There are scattered areas of fibroglandular density. No significant masses, calcifications, or other findings are seen in either breast. There has been no significant interval change. IMPRESSION: NEGATIVE There is no mammographic evidence of malignancy. A 1 year screening mammogram is recommended. Fariha Sierra M.D. cp/penlillie:05/24/2023 13:52:10 Antenna Rigger(s): RT Mere(R)(M), [facility] letter sent: Normal over 40 Mammogram BI-RADS: 1 Negative Multiple national specialty organizations have released breast cancer screening guidelines for women at average risk for developing breast cancer - guidelines that are based on both evidence and opinion, yet differ on when to start and how often to screen for breast cancer. With representation from Breast Imaging, Internal Medicine, Women's Health, Family Medicine, and Medical/Surgical Oncology, the [facility] has carefully reviewed the data and reached the following consensus: 1) All women should engage in shared decision-making with their providers to decide when to start and how often to screen; 2) All women should have the opportunity to start screening mammography at age 40; 3) For women ages 45-55, we recommend annual screening mammograms; 4) For women ages 55 and over, we support both the transition from an annual to a biennial interval if this aligns more with patient's values and preferences, or continuation with annual screening; 5) All women should discuss with their providers when to stop screening mammograms. Physical Education Specialist: Yazmin Transcribe Date/Time: May 22 2023 2:43P Dictated by: FARIHA SIERRA MD This examination was interpreted and the report reviewed and electronically signed by: FARIHA SIERRA MD on May 24 2023 1:52PM EST [id number] [facility] XR HAND LEFT 3+ VIEWSon 04-21 XR HAND LEFT 3+ VIEWS Interpreted By: Jarod Ghosh, STUDY: XR HAND LEFT 3+ VIEWS; ; 05/13/2023 4:08 pm INDICATION: Signs/Symptoms:pain. ACCESSION NUMBER(S): [id number] ORDERING CLINICIAN: JAROD GHOSH FINDINGS: Repeat three views left hand demonstrate stable sclerotic callus formation at base of the 5th metacarpal fracture. No worsening alignment or fracture seen. Normal anatomic spacing is seen otherwise. No additional acute osseous abnormality noted. Overall impression interval healing proximal 5th metacarpal fracture with increased callus formation Signed by: Jarod Ghosh 05/13/2023 4:58 PM Dictation workstation: [id number] [facility] XR Hand - left 3 Viewson Interpreted By: Jarod Ghosh, STUDY: XR HAND LEFT 3+ VIEWS; ; 05/13/2023 4:08 pm INDICATION: Signs/Symptoms:pain. ACCESSION NUMBER(S): [id number] ORDERING CLINICIAN: JAROD GHOSH FINDINGS: Repeat three views left hand demonstrate stable sclerotic callus formation at base of the 5th metacarpal fracture. No worsening alignment or fracture seen. Normal anatomic spacing is seen otherwise. No additional acute osseous abnormality noted. Overall impression interval healing proximal 5th metacarpal fracture with increased callus formation Signed by: Jarod Ghosh 05/13/2023 4:58 PM Dictation workstation: [id number] Jarod Ghosh MD - 05/13/2023 Interpreted By: Jarod Ghosh, STUDY: XR HAND LEFT 3+ VIEWS; ; 05/13/2023 4:08 pm INDICATION: Signs/Symptoms:pain. ACCESSION NUMBER(S): [id number] ORDERING CLINICIAN: JAROD GHOSH FINDINGS: Repeat three views left hand demonstrate stable sclerotic callus formation at base of the 5th metacarpal fracture. No worsening alignment or fracture seen. Normal anatomic spacing is seen otherwise. No additional acute osseous abnormality noted. Overall impression interval healing proximal 5th metacarpal fracture with increased callus formation Signed by: Jarod Ghosh 05/13/2023 4:58 PM Dictation workstation: [id number] [facility] Work Phone: [facility] Work Phone: Radiology Study observation (narrative) [facility] Work Phone: XR HAND LEFT 3+ VIEWSon XR HAND LEFT 3+ VIEWS Interpreted By: Jarod Ghosh, STUDY: XR HAND LEFT 3+ VIEWS; ; 04/22/2023 3:37 pm INDICATION: Signs/Symptoms:pain. ACCESSION NUMBER(S): [id number] ORDERING CLINICIAN: JAROD GHOSH FINDINGS: Repeat left hand films demonstrate stable appearing nondisplaced proximal 5th metacarpal fracture at the level of the base. No presence for any obvious abnormality to the thumb. The remainder of the hand is unremarkable from prior films. Overall impression stable appearing acute nondisplaced proximal 5th metacarpal fracture. Signed by: Jarod Ghosh 04/23/2023 8:16 AM Dictation workstation: [id number] [facility] XR HAND LEFT 3+ VIEWSon 03-20 XR HAND LEFT 3+ VIEWS STUDY: Left hand and wrist radiographs; 04/06/2023 at 12:45 PM. INDICATION: Left hand pain post injury. COMPARISON: None available. ACCESSION NUMBER(S): [id number], [id number] ORDERING CLINICIAN: TECHNIQUE: Three views of the left hand and four views of the left wrist. FINDINGS: Left Hand: There is a fracture the base of the left fifth metacarpal. The alignment is anatomic. No soft tissue abnormality is seen. Left Wrist: There is a fracture the base of the fifth metacarpal. The alignment is anatomic. No soft tissue abnormality is seen. IMPRESSION: Left Hand: Fracture the base of the left fifth metacarpal. Left Wrist: Fracture the base of the left fifth metacarpal. Signed by Raghavendra Baltazar MD [facility] XR WRIST LEFT 3+ VIEWSon XR WRIST LEFT 3+ VIEWS STUDY: Left hand and wrist radiographs; 04/06/2023 at 12:45 PM. INDICATION: Left hand pain post injury. COMPARISON: None available. ACCESSION NUMBER(S): [id number], [id number] ORDERING CLINICIAN: TECHNIQUE: Three views of the left hand and four views of the left wrist. FINDINGS: Left Hand: There is a fracture the base of the left fifth metacarpal. The alignment is anatomic. No soft tissue abnormality is seen. Left Wrist: There is a fracture the base of the fifth metacarpal. The alignment is anatomic. No soft tissue abnormality is seen. IMPRESSION: Left Hand: Fracture the base of the left fifth metacarpal. Left Wrist: Fracture the base of the left fifth metacarpal. Signed by Raghavendra Baltazar MD [facility] Acute hepatitis 2000 panel ( S)on 03-14-2023 HAV IgM Ql (S) Non-Reactive Normal Nonreactive [facility] Comment on above: Result Comment: Biot in interference may cause falsely decreased results. Patients taking a Biotin dose of up to 5 mg/day should refrain from taking Biotin for 24 hours before sample collection. Providers may contact their local laboratory for further information. Performed By: #### 2 4363-4 #### DIRK Krishnan ([id number]) [facility] ([facility]) [address] [place] [address] HBV core IgM Ql (S) Non-Reactive Normal Nonreactive [facility] Comment on above: Result Comment: Resu lts from patients taking biotin supplements or receiving high-dose biotin therapy should be interpreted with caution due to possible interference with this test. Providers may contact their local laboratory for further information. Performed By: #### 2 4363-4 #### DIRK Krishnan ([id number]) [facility] ([facility]) [address] [place] [address] HBV surface Ag IA Ql Non-Reactive Normal Nonreactive [facility] Comment on above: Result Comment: Biot in interference may cause falsely decreased results. Patients taking a Biotin dose of up to 5 mg/day should refrain from taking Biotin for 24 hours before sample collection. Providers may contact their local laboratory for further information. Performed By: #### 2 4363-4 #### DIRK Krishnan ([id number]) [facility] ([facility]) [address] [place] [address] HCV Ab Ql (S) Non-Reactive Normal Nonreactive [facility] Comment on above: Result Comment: Resu lts from patients taking biotin supplements or receiving high-dose biotin therapy should be interpreted with caution due to possible interference with this test. Providers may contact their local laboratory for further information. Performed By: #### 2 4363-4 #### DIRK Krishnan ([id number]) [facility] ([facility]) [address] [place] [address] Bilirubin.glucuronidated+Darek irubin.albumin boundon 03-14-2023 Bilirubin.direct [Mass/Vol] 0.2 mg/dL Normal 0.0-0.3 [facility] Comment on above: Performed By: #### 1 968-7 #### JENNIFER LEWIS ([id number]) [facility] ([facility] [address] [place] [address] 674[address] Comprehensive metabolic 2000 panelon 03-14-2023 Albumin BCP dye [Mass/Vol] 4.3 g/dL Normal 3.4-5.0 [facility] Comment on above: Performed By: #### 2 4323-8 #### JENNIFER LEWIS ([id number]) [facility] ([facility]) [address] [place] [address] 41900 ALP [Catalytic activity/Vol] 38 U/L Normal 33-110 [facility] Comment on above: Performed By: #### 2 4323-8 #### JENNIFER LEWIS ([id number]) [facility] ([facility]) [address] [place] [address] 71999 ALT With P-5'-P [Catalytic activity/Vol] 122 U/L High 7-45 [facility] Comment on above: Result Comment: Tammy ents treated with Sulfasalazine may generate falsely decreased results for ALT. Performed By: #### 2 4323-8 #### JENNIFER LEWIS ([id number]) [facility] ([facility]) [address] [place] [address] 76921 Anion gap [Moles/Vol] 22 mmol/L High 10-20 [facility] Comment on above: Performed By: #### 2 4323-8 #### JENNIFER LEWIS ([id number]) [facility] ([facility]) [address] [place] [address] 91635 AST With P-5'-P [Catalytic activity/Vol] 157 U/L High 9-39 [facility] Comment on above: Performed By: #### 2 4323-8 #### JENNIFER LEWIS ([id number]) [facility] ([facility]) [address] [place] [address] 53815 Bilirubin [Mass/Vol] 0.8 mg/dL Normal 0.0-1.2 [facility] Comment on above: Performed By: #### 2 4323-8 #### JENNIFER LEWIS ([id number]) [facility] ([facility]) [address] [place] [address] 66912 Calcium [Mass/Vol] 9.6 mg/dL Normal 8.6-10.3 [facility] Comment on above: Performed By: #### 2 4323-8 #### JENNIFER LEWIS ([id number]) [facility] ([facility]) [address] [place] [address] 83830 Chloride [Moles/Vol] 92 mmol/L Low 98-107 [facility] Comment on above: Performed By: #### 2 4323-8 #### JENNIFER LEWIS ([id number]) [facility] ([facility]) [address] [place] [address] CO2 [Moles/Vol] 24 mmol/L Normal 21-32 [facility] Comment on above: Performed By: #### 2 4323-8 #### JENNIFER LEWIS ([id number]) [facility] ([facility]) [address] [place] [address] Creatinine [Mass/Vol] 1.06 mg/dL High 0.50-1.05 [facility] Comment on above: Performed By: #### 2 4323-8 #### JENNIFER LEWIS ([id number]) [facility] ([facility]) [address] [place] [address] GFR/1.73 sq M.predicted MDRD (S/P/Bld) [Vol rate/Area] 63 mL/min/1.73m*2 Normal >60 [facility] Comment on above: Result Comment: Calc ulations of estimated GFR are performed using the 2020 CKD-EPI Study Refit equation without the race variable for the IDMS-Traceable creatinine methods. https://jasn.asnjournals.org/content//ASN.2383199 988 Performed By: #### 2 4323-8 #### JENNIFER LEWIS ([id number]) [facility] ([facility]) [address] [place] [address] Glucose [Mass/Vol] 76 mg/dL Normal 74-99 [facility] Comment on above: Performed By: #### 2 4323-8 #### JENNIFER LEWIS ([id number]) [facility] ([facility]) [address] [place] [address] Potassium [Moles/Vol] 3.8 mmol/L Normal 3.5-5.3 [facility] Comment on above: Performed By: #### 2 4323-8 #### JENNIFER LEWIS ([id number]) [facility] ([facility]) [address] [place] [address] 67019 Protein [Mass/Vol] 7.3 g/dL Normal 6.4-8.2 [facility] Comment on above: Performed By: #### 2 4323-8 #### JENNIFER LEWIS ([id number]) [facility] ([facility]) [address] [place] [address] 16356 Sodium [Moles/Vol] 134 mmol/L Low 136-145 [facility] Comment on above: Performed By: #### 2 4323-8 #### JENNIFER LEWIS ([id number]) [facility] ([facility]) [address] [place] [address] 57581 Urea nitrogen [Mass/Vol] 15 mg/dL Normal 6-23 [facility] Comment on above: Performed By: #### 2 4323-8 #### JENNIFER LEWIS ([id number]) [facility] ([facility]) [address] [place] [address] 36031 Ferritinon 03-14-2023 Ferritin [Mass/Vol] 544 ng/mL High 8-150 [facility] Comment on above: Performed By: #### 2 276-4 #### DIRK Krishnan ([id number]) [facility] ([facility]) [address] [place] [address] Gamma glutamyl transferaseon 03-14-2023 Gamma glutamyl transferase [Catalytic activity/Vol] 228 U/L High 5-55 [facility] Comment on above: Performed By: #### 2 324-2 #### JENNIFER LEWIS ([id number]) [facility] ([facility]) [address] [place] [address] 97557 HbA1c (Bld) [Mass fraction]o n 03-14-2023 Average glucose Estimated from glycated hemoglobin (Bld) [Mass/Vol] 111 mg/dL Normal Not Established [facility] Comment on above: Order Comment: Diagn osis of Diabetes-Adults Non-Diabetic: < or = 5.6% Increased risk for developing diabetes: 5.7-6.4% Diagnostic of diabetes: > or = 6.5% Monitoring of Diabetes Age (y)....................... Therapeutic Goal (%) Adults: >18.........................<7.0 Pediatrics: 13-18...................<7.5 Pediatrics: 7-12....................<8.0 Pediatrics: 0-6..................... 7.5-8.5 [place] [employer]. Diabetes Care 33(S1), Apr 2009 Performed By: #### 4 548-4 #### DIRK Krishnan ([id number]) [facility] ([facility]) [address] [place] [address] Hemoglobin A1c/Hemoglobin.to ange 03-14-2023 HbA1c (Bld) [Mass fraction] 5.5 % Normal see below [facility] Comment on above: Order Comment: Diagn osis of Diabetes-Adults Non-Diabetic: < or = 5.6% Increased risk for developing diabetes: 5.7-6.4% Diagnostic of diabetes: > or = 6.5% Monitoring of Diabetes Age (y)....................... Therapeutic Goal (%) Adults: >18.........................<7.0 Pediatrics: 13-18...................<7.5 Pediatrics: 7-12....................<8.0 Pediatrics: 0-6..................... 7.5-8.5 [place] [employer]. Diabetes Care 33(S1), Apr 2009 Performed By: #### 4 548-4 #### DIRK Krishnan ([id number]) [facility] ([facility]) [address] [place] [id number] Lipid 1996 panelon 3 Cholesterol [Mass/Vol] 313 mg/dL High 0-199 [facility] Comment on above: Result Comment: Age Desirable Borderline High High 0-19 Y 0 - 169 170 - 199 >/= 200 20-24 Y 0 - 189 190 - 224 >/= 225 >24 Y 0 - 199 200 - 239 >/= 240 All ranges are based on fasting samples. Specific therapeutic targets will vary based on patient-specific cardiac risk. Pediatric guidelines reference:Pediatrics 2011, 128(S5).Adult guidelines reference: NCEP ATPIII Guidelines,LISSA 2001, 258:8326-97 Venipuncture immediately after or during the administration of Metamizole may lead to falsely low results. Testing should be performed immediately prior to Metamizole dosing. Performed By: #### 2 4331-1 #### JENNIFER LEWIS ([id number]) [facility] ([facility]) [address] [place] [address] Cholesterol in HDL [Mass/Vol] 121.4 mg/dL Normal [facility] Comment on above: Result Comment: Age Very Low Low Normal High 0-19 Y < 35 < 40 40-45 ---- 20-24 Y ---- < 40 >45 ---- >24 Y ---- < 40 40-60 >60 Performed By: #### 2 4331-1 #### JENNIFER LEWIS ([id number]) [facility] ([facility]) [address] [place] [address] Cholesterol in LDL [Mass/Vol] 174 mg/dL High <=99 [facility] Comment on above: Result Comment: Near Borderline AGE Desirable Optimal High High Very High 0-19 Y 0 - 109 --- 110-129 >/= 130 ---- 20-24 Y 0 - 119 --- 120-159 >/= 160 ---- >24 Y 0 - 99 100-129 130-159 160-189 >/=190 Performed By: #### 2 4331-1 #### JENNIFER LEWIS ([id number]) [facility] ([facility]) [address] [place] [address] 22337 Cholesterol in VLDL [Mass/Vol] 18 mg/dL Normal 0-40 [facility] Comment on above: Performed By: #### 2 4331-1 #### JENNIFER LEWIS ([id number]) [facility] ([facility]) [address] [place] [address] 91930 CHOLESTEROL/HDL RATIO 2.6 Normal [facility] Comment on above: Result Comment: Ref Values Desirable < 3.4 High Risk > 5.0 Performed By: #### 2 4331-1 #### JENNIFER LEWIS ([id number]) [facility] ([facility]) [address] [place] [address] 55175 NON HDL CHOLESTEROL 192 mg/dL High 0-149 [facility] Comment on above: Result Comment: Age Desirable Borderline High High Very High 0-19 Y 0 - 119 120 - 144 >/= 145 >/= 160 20-24 Y 0 - 149 150 - 189 >/= 190 ---- >24 Y 30 mg/dL above LDL Cholesterol goal Performed By: #### 2 4331-1 #### JENNIFER LEWIS ([id number]) [facility] ([facility]) [address] [place] [address] 99357 Triglyceride [Mass/Vol] 90 mg/dL Normal 0-149 [facility] Comment on above: Result Comment: Age Desirable Borderline High High Very High 0 D-90 D 19 - 174 ---- ---- ---- 91 D- 9 Y 0 - 74 75 - 99 >/= 100 ---- 10-19 Y 0 - 89 90 - 129 >/= 130 ---- 20-24 Y 0 - 114 115 - 149 >/= 150 ---- >24 Y 0 - 149 150 - 199 200- 499 >/= 500 Venipuncture immediately after or during the administration of Metamizole may lead to falsely low results. Testing should be performed immediately prior to Metamizole dosing. Performed By: #### 2 4331-1 #### JENNIFER LEWIS ([id number]) [facility] ([facility]) [address] [place] [address] TSH WITH REFLEX TO FREE T4 I F ABNORMALon 03-14-2023 TSH Qn 3.28 m[IU]/L Normal 0.44-3.98 [facility] Comment on above: Order Comment: TSH t esting is performed using different testing methodology at [facility] than at other [facility]. Direct result comparisons should only be made within the same method. Performed By: #### T HYDS #### JENNIFER LEWIS ([id number]) [facility] ([facility]) [address] [place], [place] [address] Surgical pathology studyOrde red By: Landon Dumont on 03-04-2023 Laboratory comment [employer] (Report) g4syrMIwFOOev3spDAFulTMn ZzEwMzNcZnRuYmpcdWMxIHtc lvIgJVuhv6WlY1GkPgPqCTum bnNpXGRlZmxhbmcxMDMzXGZ0 qsEjSSZrLEnuMMDpAXcaZs1y oEMjcIieDnBbCFMgk5mxpnQG QHadFYDQMTf3g3gsDWCfCkR9 pNUxSQgfG7fkkdSjbQDpD7Bl r1WnGAu7yM05QNPnkC4qbDFb VSwsrmUnQhB5GWedTNIsWoZ9 VBSxpOSuYLKrV5enCMSsYLhj TTDcXQeeaQSwLIK1gLwcj4O3 bGVzaGVldHtcZjBcZnMyMiBO y2GaJPk6eIbuE1PkUQMsFqY7 bHQgUGFyYWdyYXBoIEZvbnQ7 cA77HJhkmiR4sJUkz7Nwf95h b270aB5nuFGbQVJ3RASsLXEg eXKwUNQtZXY9UYKsyLTfJ3df NzBneOKtQ5UsJvOdaNDlH7Jl DwGxyISiF5BsXcKpfOWaUNTs oLU3IVsdo569IPK9YoYuMR1l U2Maj1P5fM8lxLUhDRSskZIy ZoIqGFLmts9fiQBgNAfkt2Fa ZRG9ocT9tMNvaOZtXMPtDA02 Lcvyd0CgRpqoCAG7ZNVhrvYq v6Zba7dkEqPlcnNkP0tjE8Iy TSYeDMLfSZFaRfDwayNjn4Jq m4HvjQVgrRz5q1lqRWEcEOTi fDugs2jkOST0OEClJ4M7qAQk u9blDRnkEJEfgIC6okO1CPdf NISqneL1ssU1HLcnJCQlxFE1 jiC0PTtnIQIsNzK4ndY9QCcg PJCiUBI5RyOoVFFag6Pveshu FeWfm4RgyHFsHNwsQ69lm900 DBDkxfPlK5twkDUnxiztjKQr hctiGEfxthR3AEOfPWCjDVqe XGYxXGZzMjBcbGFuZzEwMzNc aGljaFxmMVxkYmNoXGYxXGxv G7ubNeAuPyXrOQPJqTK8kIWu q7mdawT9zBEoME9dJQZmcHCu ybNrz1Q8EGR9dRGzdE2mtYRv OPBhiCMebiNlbg71uPPrnRO0 EZYeYMNvqCTsmU7yCTCoVGAP hY7mzWVJmaVxhcAxIKSqiXhq pa5KfROitk9lxKYnY0GwaRbh aWVzIHRoYXQgdGhleSBoYXZl HQHgcfaoq5CnPQWscOIjD3Gb HP2mPVJsmm40 [facility] Work Phone: Pathology report Cancer Narrative Surgical Pathology Case: [id number] Authorizing Provider: Milton Farrell MD Collected: 02/23/2023 1158 Ordering Location: [facility] Received: 02/24/2023 1119 OR Pathologist: Landon Dumont MD Specimen: COLON - ASCENDING POLYP, ascending colon polyps X 2 [facility] Work Phone: Pathology report final diagnosis Narrative q2lkfFVeZPYvbRXmBHZsODvn hjAxXOYetGAlI6PrknqvNXqd MX6yAP8ajViriFKbiEWgHJHs XuZqk2upz395lGPom3iwDNAT YKoqFJVBGXx4fEeqV25gx9K4 CmkuH63diTKwAWQ7IMQnANPt kVUzVLXgGTS7OQKnwZFwJ7dt RKErRF3lrndcGMouMBpgIVHs lTV6JWFykATiU8ItXGUxXNfr RTPqyrm9HpHjEv6ivSRrcHvj MFxwYXJkXHBsYWluXGZzMjAg QP9tJLBwH2NkSFomOnRiv6ff wqSuy0e4zLO8LKL3HSUoqcOF jwRieSSeuBSgi8LgbOPfcIob qeSsEHDhz58iBmnqKIJ4 [facility] Work Phone: Pathology report gross observation Narrative u0zvrMYdEMAokPLVFUQ5CYNg UK4fkTvwbAk6aJuiVLXlgoU5 yRBoXMluy0hzKHM7s8lgqwFQ WsqqWBLySI6cNKdfYNZcUI0w ZmUwXGRlZmYxXHBhcGVydzEy ZtClSYTxuSRcoZJ1KRVgXC8e epozEUczRHntTDUdlqG2UINe jQReB2JaQBLoEF6hdtlcUWV3 OCTVBoblZc1avEWoeRocOzSr NrCbAFBfJEBcTKGmqBmtB2Pl u5LbYLa7lR4LWbetAGD9GSDR WufeNxhbbOknz8QbzQRxTLHn IFxcaWQgNTEwMDAgXFxkYiBP JsFnMwN6IRa2GPM4RsW0LGh8 DMCAGTOpKrDsZbq7WUJ9IUb5 CGXiAE0bWHpgiTMsEIboQzjh CTkpL481JDakEXYiY1CoE1Bb XFxzZyBcXGlkIDUxMDAyIFxc IBPyH9GQBIGjDNG8DBYlQGWb OFp1SJhjV4EJDVZgZOI2YuKi OUA8ZiR8CIy9VWXFBi3yHzb4 IaGsFaC6OPZ3RjT6DFxnrcgp NHu1XXKaJRauqqReSIewOfgb HCsfT95sbGAlOGCNEilwdNAn blxlcGljTmVzdERvYzEgDQpc tOAwlSItVX5XDXs9udRsIRBg TkPnNAbzYHJjQ8BfitUdFMew IZDfbg8uaTzwIJCbXBFvpTHh IHdpdGggdGhlIHBhdGllbnQn wqTgGZ4mTLJlIRFxb5JkkCEj oFCtyL1vOJAsWS9vYGGob9Jt bmCuvqhteB5wmGYvSCEiHsbh HQCyZC41eSXokEpuIOVvwBxn j6lfUPGqE28tyqQvDY2aZISf anvma61qmDJ4rYKviCUvoPRa i7LytZ1bOEStJQG6AINwAsZ5 CGZxZnEpyC9uIVHwTNVyeFUu bJ2ektUqznYggCAsrJU1EWLr vX2vwC58thYwsoVrxpEcT0Gr y5T1gXHcAUOhwdAJSklhMXVq BFBxbNIXk3GiIXCCRl0VFU9V PELeuQUSGGO0CP6vWLwnMIZm F6RsP1TljmM2j4agdNhzj8Kt zGBiJH9elAOcFQ3FXWAofeMa OQjrxSqjzH2nJUc2 [facility] Work Phone: [facility] Work Phone: COLONOSCOPYon 02-23-2023 Colonoscopy Table formatting fro m the original result was not included. Normal [facility] No Panel Informationon 02-23 Table formatting fro m the original result was not included. Impression 2 subcentimeter polyps in the ascending colon were removed with cold forceps biopsy Findings Two sessile polyps measuring smaller than 5 mm in the ascending colon; performed cold forceps biopsy with complete en bloc removal Recommendation Await pathology results Repeat colonoscopy in 5 years Indication Benign neoplasm of colon, unspecified part of colon Post Procedure Diagnosis 2 poylps Staff Staff Role Milton Farrell MD Proceduralist Medications No administrations occurring from 1043 to 1232 on 02/23/23 Preprocedure A history and physical has been performed, and patient medication allergies have been reviewed. The patient's tolerance of previous anesthesia has been reviewed. The risks and benefits of the procedure and the sedation options and risks were discussed with the patient. All questions were answered and informed consent obtained. Details of the Procedure The patient underwent monitored anesthesia care, which was administered by an anesthesia professional. The patient's blood pressure, ETCO2, heart rate, level of consciousness, oxygen and respirations were monitored throughout the procedure. A digital rectal exam was performed. A perianal exam was performed. The scope was introduced through the anus and advanced to the cecum. Retroflexion was performed in the rectum. Bowel prep was adequate. The patient's estimated blood loss was minimal (<5 mL). The procedure was moderately difficult due to loops in the digestive tract and patient discomfort. In response to procedure difficulty, counter pressure was applied. The patient tolerated the procedure well. There were no apparent adverse events. Events Procedure Events Event Event Time ENDO SCOPE IN TIME 02/23/2023 11:21 AM ENDO CECUM REACHED 02/23/2023 11:46 AM ENDO SCOPE OUT TIME 02/23/2023 12:21 PM Specimens ID Type Source Tests Collected by Time 1 : ascending colon polyps X 2 Tissue COLON - ASCENDING POLYP SURGICAL PATHOLOGY EXAM Sonia Quintero 02/23/2023 1158 Procedure Location [facility] [address] [facility] [place] [address] [facility] [address] Referring Provider Jhoan Roberto Md [address] [facility] [place] [address] [place] [address] Procedure Provider Milton Farrell MD [facility] Work Phone: Radiology Study observation (narrative) [facility] Work Phone: No Panel InformationOrdered By: Milton Farrell on 02-23-2023 [facility] Work Phone: Surgical pathology studyon 1 04-25-2022 Surgical pathology study Pathology report.total SEE COMMENT Surgical Pathology Case: [id number] Authorizing Provider: Milton Farrell MD Collected: 02/23/2023 1151 Ordering Location: [facility] Received: 02/24/2023 1119 OR Pathologist: Landon Dumont MD Specimen: COLON - ASCENDING POLYP, ascending colon polyps X 2 Path report.final diagnosis SEE COMMENT A. Ascending colon polyp x 2: Fragments of tubular adenoma. Laboratory comment By the signature on this report, the individual or group listed as making the Final Interpretation/Diagnosis certifies that they have reviewed this case. Path report.gross observation SEE COMMENT A: Received in formalin, labeled with the patient's name and hospital number and ascending polyp X 2 , are multiple polypoid segments of cook, soft tissue measuring 1.4 x 0.3 x 0.2 cm. The specimen is submitted in toto in one cassette. [facility] EMG & nerve conductionOrdere d By: Lynn Stark on 01-23-2023 [facility] ULTRASOUND ELASTOGRAPHY PARE NCHYMA eg ORGANon 12-24-2022 ULTRASOUND ELASTOGRAPHY PARENCHYMA eg ORGAN Patient Name: EMELY CLEVELAND STUDY: US RUQ ABDOMEN; ULTRASOUND ELASTOGRAPHY; 12/24/2022 8:20 am INDICATION: pain to right upper quadrant R10.11: Abdominal pain, RUQ (right upper quadrant); fatty liver. COMPARISON: None. ACCESSION NUMBER(S): [id number]; [id number] ORDERING CLINICIAN: CHAR JOHNSON; JHOAN ROBERTO TECHNIQUE: Multiple images of the right upper quadrant were obtained. Shear wave elastography was performed. FINDINGS: LIVER: Liver measures 19.3 cm in length, enlarged. There is diffusely increased hepatic echogenicity. Shear wave elastography: V median: 1.48 m/seconds. IQR/M: 9.2%. GALLBLADDER: 6 mm gallbladder polyp. BILIARY TREE: No intra or extrahepatic biliary dilatation is identified. The common bile duct measures 4 mm. PANCREAS: The visualized pancreas is unremarkable in appearance. RIGHT KIDNEY: The right kidney is normal in size, measuring 13.3 cm in craniocaudal dimension. The renal cortical echogenicity and thickness are within normal limits. No hydronephrosis or renal calculi are seen. Lower pole cyst measuring up to 4.3 x 4.2 x 3.9 cm. IMPRESSION: Enlarged liver demonstrating the appearance of diffusely increased echogenicity compatible with likely hepatic steatosis. Shear wave elastography values with V median of 1.48 M/S. In the absence of other known clinical signs, this effectively excludes compensated advanced chronic liver disease. If there are no clinical signs, the patient may need further testing for confirmation. 6 mm gallbladder polyp. MACRO: None Electronically signed by: NIKIA MARTINEZ MD Normal [facility] US RIGHT UPPER QUADRANTon US RIGHT UPPER QUADRANT Patient Name: EMELY CLEVELAND STUDY: US RUQ ABDOMEN; ULTRASOUND ELASTOGRAPHY; 12/24/2022 8:20 am INDICATION: pain to right upper quadrant R10.11: Abdominal pain, RUQ (right upper quadrant); fatty liver. COMPARISON: None. ACCESSION NUMBER(S): [id number]; [id number] ORDERING CLINICIAN: CHAR ROBERTO TECHNIQUE: Multiple images of the right upper quadrant were obtained. Shear wave elastography was performed. FINDINGS: LIVER: Liver measures 19.3 cm in length, enlarged. There is diffusely increased hepatic echogenicity. Shear wave elastography: V median: 1.48 m/seconds. IQR/M: 9.2%. GALLBLADDER: 6 mm gallbladder polyp. BILIARY TREE: No intra or extrahepatic biliary dilatation is identified. The common bile duct measures 4 mm. PANCREAS: The visualized pancreas is unremarkable in appearance. RIGHT KIDNEY: The right kidney is normal in size, measuring 13.3 cm in craniocaudal dimension. The renal cortical echogenicity and thickness are within normal limits. No hydronephrosis or renal calculi are seen. Lower pole cyst measuring up to 4.3 x 4.2 x 3.9 cm. IMPRESSION: Enlarged liver demonstrating the appearance of diffusely increased echogenicity compatible with likely hepatic steatosis. Shear wave elastography values with V median of 1.48 M/S. In the absence of other known clinical signs, this effectively excludes compensated advanced chronic liver disease. If there are no clinical signs, the patient may need further testing for confirmation. 6 mm gallbladder polyp. MACRO: None Electronically signed by: NIKIA MARTINEZ MD Normal [facility] Ultrasound Right Upper Quadr cristhian 12-24-2022 Ultrasound Right Upper Quadrant Normal [facility] [employer] Work Phone: Blood Pressure Cuff Sizeon 0 12-04-2022 Fall risk assessment a) No falls within the last year [facility] Work Phone: Tobacco use status [facility]PH[facility] a) Yes [facility] Work Phone: Blood Pressure Cuff Size Adult [facility] Work Phone: Blood Pressure Cuff Size Yes [facility] Work Phone: Follow Up (General Surgery)o n 12-04-2022 Follow Up (General Surgery) Diagnoses/Problems History of Chest pain syndrome (786.50) (R07.9) Orders Abdominal pain, RUQ (right upper quadrant) Continue: Omeprazole 40 MG Oral Capsule Delayed Release; start w/ 1 CAPSULE BY MOUTH EVERY DAY BEFORE breakfast for 4 wks, then 1 daily as needed Rx By: Jhoan Roberto; Dispense: 0 Days ; #:1 X 30 Capsule Bottle; Refill: 6;For: Abdominal pain, RUQ (right upper quadrant); OTONIEL = N; Record; Last Updated By: Gorge Gomez; 12/04/2022 3:58:37 PM Ultrasound Right Upper Quadrant; Status:Hold For - Scheduling,Retrospective Authorization; Requested for:04Dec2022; Perform: Radiology Services Imaging; Due:04Mar2023; Last Updated By:Gorge Gomez; 12/04/2022 4:16:16 PM;Ordered; For:Abdominal pain, RUQ (right upper quadrant); Ordered By:Char Johnson; Radiologist to Determine Optimal Study : Y What are the patient's signs and symptoms? : pain to right upper quadrant Allergic rhinitis Continue: Fluticasone Propionate 50 MCG/ACT Nasal Suspension; USE 1- 2 SPRAY IN EACH NOSTRIL nightly before CPAP Rx By: Jhoan Roberto; Dispense: 0 Days ; #:1 X 15.8 ML Bottle; Refill: 6;For: Allergic rhinitis; OTONIEL = N; Verified Transmission to [facility] #[id number]; Last Updated By: Gorge Gomez; 12/04/2022 3:58:37 PM Continue: ZyrTEC Allergy 10 MG Oral Capsule; take 1 tablet daily as needed for spring AND fall allergies Rx By: Jhoan Roberto; Dispense: 0 Days ; #:30 Capsule; Refill: 6;For: Allergic rhinitis; OTONIEL = N; Verified Transmission to [facility] #[id number]; Last Updated By: Gorge Gomez; 12/04/2022 3:58:37 PM Health Maintenance Continue: Fish Oil 1000 MG Oral Capsule; one daily as needed Rx By: Jhoan Roberto; Dispense: 0 Days ; #: Sufficient Capsule; Refill: 0;For: Health Maintenance; OTONIEL = N; Record; Last Updated By: Gorge Gomez; 12/04/2022 3:58:37 PM Continue: Magnesium Oxide 400 MG Oral Tablet; TAKE 1-2 TABLETs nightly to help w/ muscle cramps Rx By: Jhoan Roberto; Dispense: 0 Days ; #:60 Tablet; Refill: 6;For: Health Maintenance; OTONIEL = N; Record; Last Updated By: Gorge Gomez; 12/04/2022 3:58:37 PM Continue: Vitamin B Complex Oral Tablet; TAKE 1 TABLET DAILY Rx By: Jhoan Roberto; Dispense: 0 Days ; #: Sufficient Tablet; Refill: 0;For: Health Maintenance; OTONIEL = N; Record; Last Updated By: Gorge Gomez; 12/04/2022 3:58:37 PM Hypertension Continue: amLODIPine Besylate 5 MG Oral Tablet; TAKE ONE TABLET BY MOUTH DAILY FOR BLOOD PRESSURE Rx By: Jhoan Roberto; Dispense: 30 Days ; #:90 Tablet; Refill: 3;For: Hypertension; OTONIEL = N; Verified Transmission to [facility][id number]; Last Updated By: Gorge Gomez; 12/04/2022 3:58:37 PM Continue: Losartan Potassium-HCTZ 100-25 MG Oral Tablet (Hyzaar); TAKE 1 TABLET BY MOUTH EVERY MORNING for blood pressure Rx By: Jhoan Roberto; Dispense: 0 Days ; #:30 Tablet; Refill: 6;For: Hypertension; OTONIEL = N; Verified Transmission to [facility] #[id number]; Last Updated By: Gorge Gomez; 12/04/2022 3:58:37 PM Low vitamin D level Continue: Vitamin D (Cholecalciferol) 25 MCG (1000 UT) Oral Tablet; TAKE 1 TABLET ORALLY DAILY (VITAMIN D DEFICIENCY) Rx By: Jhoan Roberto; Dispense: 0 Days ; #: Sufficient Tablet; Refill: 0;For: Low vitamin D level; OTONIEL = N; Record; Last Updated By: Gorge Gomez; 12/04/2022 3:58:37 PM PMH: History of headache Continue: SUMAtriptan Succinate 50 MG Oral Tablet; take at onset, may repeat every 2 hrs, not to exceed 200 mg in 24 hrs Rx By: Jhoan Roberto; Dispense: 90 Days ; #:1 X 9 Tablet Bottle; Refill: 3;For: PMH: History of headache; OTONIEL = N; Verified Transmission to [facility] #[id number]; Last Updated By: Gorge Gomez; 12/04/2022 3:58:37 PM Sciatica of right side Temporarily Stop: predniSONE 10 MG Oral Tablet Rx By: Jhoan Roberto; Dispense: 0 Days ; #:20 Tablet; Refill: 0;For: Sciatica of right side; OTONIEL = N; Verified Transmission to [facility] #[id number]; Last Updated By: Gorge Gomez; 12/04/2022 3:58:37 PM Seasonal affective disorder Continue: Escitalopram Oxalate 10 MG Oral Tablet; TAKE 1 TABLET DAILY Rx By: Jhoan Roberto; Dispense: 30 Days ; #:30 Tablet; Refill: 6;For: Seasonal affective disorder; OTONIEL = N; Record; Last Updated By: Gorge Gomez; 12/04/2022 3:58:37 PM Unlinked Continue: Clobetasol Propionate 0.05 % External Ointment; Apply to affected area 1-2 times per week Rx By: LEIF; Dispense: 30 Days ; #:45; Refill: 0; OTONIEL = N; Record; Last Updated By: Gorge Gomez; 12/04/2022 3:58:37 PM Provider Impressions Assessment/ Right upper quadrant discomfort Plan/ I do not see a recurrent soft tissue mass. Again the lipoma is not recurred. I do not see cyst mass or other issue related to the scar We will check gallbladder ultrasound as the pain is in the right upper quadrant Chief Complaint Right upper quadrant pain History of Present [id number] female with right upper quadrant pain Patient known to me for prior excision of a lipoma from the anterior abdominal wall in the right upper q (more content not included)... Normal [facility] PT Progress Noteon 3 PT Progress Note Therapy Diagnosis Assessed Sciatica of right side (724.3) (M54.31) Plan HOLD chart due to insurance limitations. Assessment Patient notes improved pain levels resultant from activities in therapy session. Improved tissue quality noted as well as body mechanics demonstrated after cueing and corrections. Patient would like to hold due to insurance limitation. Patient appears motivated and compliant this date, demonstrating a working understanding of principals instructed and home program. Patient educated in dry needling precautions, indications, and contraindications. Patient is aware of the risks and benefits of procedure and wishes to have it performed. No adverse reaction to the dry needling noted. Adult Risk Screening There are no spiritual/cultural practices/values/needs that are important to know Initial Fall Risk Screening: EMELY has not fallen in the last 6 months. Her fall did not result in injury. EMELY does not have a fear of falling. She does not need assistance with sitting, standing or walking. Does not need assistance walking in her home. She does not need assistance in an unfamiliar setting. The patient is not using an assistive device. Please identify location of pain: R SIJ/LB, R gluteal fold. Pain Quality: tightness. Insurance Insurance reviewed Visit number: 20 Approved number of visits: 25 20% coinsurance, $400 ded, 25 Visits/yr Subjective Patient reports:. I am much better than I was last week. Have 5 visits l;eft and want to keep them in case I have a setback. Treatment Time in clinic started at 745 am Time in clinic ended at 830 am Total time in clinic is 45 minutes. Therapeutic exercise (09304): timed minutes 10 . UBE standing 2/2 supine DLS. Manual Therapy (68716): timed minutes 30 . pelvis correction MT R iliopsoas/iliacus release MT L iliopsoas/iliacus release IDN [id number] with estim STM/DTM ls paraspinals with biofreeze. Modalities: untimed minutes 10 . estim with IDN. Neuromuscular Re-education (82951): timed minutes . 'Scores and Scales' Signatures Electronically signed by : Rocael Alicea, PT; Nov 26 2022 11:19AM EST (Author) Normal [facility] PT Progress Noteon 3 PT Progress Note Therapy Diagnosis Assessed Sciatica of right side (724.3) (M54.31) Plan Progress with functional strength as tolerated with respect to tissue healing. Manual therapy PRN to improve/maintain ROM, prevent adhesion, reduce pain. Assessment Patient notes improved pain levels resultant from activities in therapy session. Improved tissue quality noted as well as body mechanics demonstrated after cueing and corrections. Patient continues to require active therapy to progress functional capabilities with decreasing pain levels and improving mechanics with functional activities including progression of Home exercise program. Tolerance to today's treatment was good. muscle fatigue noted. Patient appears motivated and compliant this date, demonstrating a working understanding of principals instructed and home program. Patient educated in dry needling precautions, indications, and contraindications. Patient is aware of the risks and benefits of procedure and wishes to have it performed. No adverse reaction to the dry needling noted. Adult Risk Screening There are no spiritual/cultural practices/values/needs that are important to know Initial Fall Risk Screening: EMELY has not fallen in the last 6 months. Her fall did not result in injury. EMELY does not have a fear of falling. She does not need assistance with sitting, standing or walking. Does not need assistance walking in her home. She does not need assistance in an unfamiliar setting. The patient is not using an assistive device. Please identify location of pain: R SIJ/LB, R gluteal fold. Pain Quality: tightness. Insurance Insurance reviewed Visit number: 19 20% coinsurance, $400 ded, 25 Visits/yr Subjective Patient reports:. I am doing OK, may back started hurting again. Thu were bad 3/10 mena. I was doing well like 0-/10. Stopped going to stretch lab, think that may be part of the problem but it is expensive. Objective Ortho sacrum left SB left rotation right posterior rotation. Treatment Time in clinic started at 745 am Time in clinic ended at 830 am Total time in clinic is 45 minutes. Therapeutic exercise (39901): timed minutes 10 . UBE standing 2/2 supine DLS. Manual Therapy (98809): timed minutes 30 . MT R iliopsoas/iliacus release MT L iliopsoas/iliacus release IDN [id number] with estim STM/DTM ls paraspinals with biofreeze. Modalities: untimed minutes 10 . estim with IDN. Neuromuscular Re-education (17044): timed minutes . 'Scores and Scales' Signatures Electronically signed by : Rocael Alicea PT; Nov 19 2022 10:22AM EST (Author) [facility] Office Visit (Neuro-General) on 11-17-2022 Follow-up visit Patient Discussion/Summary Follow-up after testing completed. Diagnoses/Problems Assessed Peripheral neuropathy (356.9) (G62.9) Orders Peripheral neuropathy EMG and Nerve Conduction; Status:Hold For - Scheduling; Requested for:[id number]; Electrodiagnostic Physician to determine whether Neuromuscular Ultrasound to be performed for optimal study : Yes Electrodiagnostic Physician to determine optimal study : Yes Patient is unable to stand or is >300lbs? : No Additional Clinical Information: : left worse than right Laterality : Left EMG Indication : Peripheral Polyneuropathy Chief Complaint Neuropathy Neurologic Evaluation. An interactive audio and video telecommunication system which permits real time communications between the patient (at the originating site) and provider (at the distant site) was utilized to provide this telehealth service. Verbal consent was requested and obtained from EMELY [place] on this date, 11/17/2022 08:30 AM , for a telehealth visit. History of Present Illness Patient being assessed today for initial evaluation of neuropathy. Patient reports that for approximately the past year she has the feeling like her left foot is falling asleep as well as the right ball of her foot. She also reports she occasionally gets sharp pain bilaterally in both feet. The sensation is in all of her left foot. Sensation intact to hot and cold as well as pinprick and cotton. Patient does not have a history of diabetes. She does have history of hypertension, occasionally smokes, drinks 3 glasses of wine per night. Labs reviewed. No additional labs needed at this time. We will get EMG completed for further evaluation. As the left side is worse than the right we will do the left side. Follow-up after testing completed. This note was created with voice recognition software and was not corrected for typographical or grammatical errors Review of Systems Per HPI Active Problems Problems 10 year risk of OK or stroke < 7.5% (V49.89) (Z91.89) 10 year cardiac risk 3.3% October 2018 Abdominal pain, RUQ (right upper quadrant) (789.01) (R10.11) Abdominal wall lump (789.30) (R22.2) Acid reflux (530.81) (K21.9) Allergic rhinitis (477.9) (J30.9) ragweed is worst season Ascending aorta dilatation (447.71) (I77.810) Astigmatism, bilateral (367.20) (H52.203) Bilateral myopia (367.1) (H52.13) Bilateral presbyopia (367.4) (H52.4) BMI 31.0-31.9,adult (V85.31) (Z68.31) History of Chest pain syndrome (786.50) (R07.9) Class 1 obesity with body mass index (BMI) of 31.0 to 31.9 in adult (278.00,V85.31) (E66.9,Z68.31) Colon polyps (211.3) (K63.5) Dysfunction of right eustachian tube (381.81) (H69.91) Dyslipidemia (272.4) (E78.5) Elevated LFTs (790.6) (R79.89) Elevated serum creatinine (790.99) (R79.89) Encounter for immunization (V03.89) (Z23) Encounter for preventive health examination (V70.0) (Z00.00) Fatty liver (571.8) (K76.0) Headache, migraine (346.90) (G43.909) Hypertension (401.9) (I10) Irregular menstrual cycle (626.4) (N92.6) Low vitamin D level (790.6) (R79.89) Mild anxiety (300.00) (F41.9) Nevus (216.9) (D22.9) Obstructive sleep apnea on CPAP (327.23) (G47.33) Overweight (278.02) (E66.3) Peripheral neuropathy (356.9) (G62.9) 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) Prediabetes (790.29) (R73.03) Primary osteoarthritis of right knee (715.16) (M17.11) Right handed Sciatica (724.3) (M54.30) Sciatica of right side (724.3) (M54.31) Seasonal affective disorder (296.99) (F33.8) Sinusitis (473.9) (J32.9) Situational anxiety (300.09) (F41.8) History of Stress at work (V62.1) (Z56.6) TSH elevation (794.5) (R79.89) Vision changes (368.9) (H53.9) Past Medical History Problems History of Abnormal CT scan, head (793.0) (R93.0) Resolved Date: 06 Oct 2015 History of Acute pain of right knee (719.46) (M25.561) Resolved Date: 30 Mar 2022 History of ALT (SGPT) level raised (790.4) (R74.01) Resolved Date: 23 Mar 2019 History of Anxiety (300.00) (F41.9) History of BMI 33.0-33.9,adult (V85.33) (Z68.33) Resolved Date: 07 Jan 2021 History of Chest pain syndrome (786.50) (R07.9) Resolved Date: 23 Mar 2019 History of Cyst of finger (709.8) Resolved Date: 25 Apr 2020 History of Foot injury (959.7) (S99.929A) Resolved Date: 07 Mar 2015 History of acute sinusitis (V12.69) (Z87.09) Resolved Date: 30 Mar 2022 History of backache (V13.59) (Z87.39) Resolved Date: 06 Oct 2015 History of bruising easily (V13.9) (Z87.898) Resolved Date: 30 Mar 2022 History of dehydration (V12.29) (Z86.39) Resolved Date: 06 Oct 2015 History of headache (V13.89) (Z87.898) Resolved Date: 06 Oct 2015 History of hematuria (V13.09) (Z87.448) Resolved Date: 28 Jul 2014 History of hyperlipidemia (V12.29) (Z86.39) Resolved Date: 23 Mar 2019 History of insomnia (V13.89) (Z87.898) Resolved Date: 30 Mar 2022 History of insomnia (V13.89) (Z87.898) Resolved Date: 30 Mar 2022 (more content not included)... Normal [facility] PT Progress Noteon 3 PT Progress Note Therapy Diagnosis Assessed Primary osteoarthritis of right knee (715.16) (M17.11) Sciatica of right side (724.3) (M54.31) Plan Progress with functional strength as tolerated with respect to tissue healing. Manual therapy PRN to improve/maintain ROM, prevent adhesion, reduce pain. Assessment Patient notes improved pain levels resultant from activities in therapy session. Improved tissue quality noted as well as body mechanics demonstrated after cueing and corrections. Patient continues to require active therapy to progress functional capabilities with decreasing pain levels and improving mechanics with functional activities including progression of Home exercise program. Tolerance to today's treatment was good. muscle fatigue noted. Patient appears motivated and compliant this date, demonstrating a working understanding of principals instructed and home program. Patient educated in dry needling precautions, indications, and contraindications. Patient is aware of the risks and benefits of procedure and wishes to have it performed. No adverse reaction to the dry needling noted. Adult Risk Screening There are no spiritual/cultural practices/values/needs that are important to know Initial Fall Risk Screening: EMELY has not fallen in the last 6 months. Her fall did not result in injury. EMELY does not have a fear of falling. She does not need assistance with sitting, standing or walking. Does not need assistance walking in her home. She does not need assistance in an unfamiliar setting. The patient is not using an assistive device. Please identify location of pain: R SIJ/LB, R gluteal fold. Pain Quality: tightness. Insurance Insurance reviewed Visit number: 18 20% coinsurance, $400 ded, 25 Visits/yr Subjective Patient reports:. doing well, still feel it but may have turned the corner a bit. want to do a few more and if no set backs can finish out. Treatment Time in clinic started at 700 am Time in clinic ended at 745 am Total time in clinic is 45 minutes. Therapeutic exercise (94870): timed minutes 10 . UBE standing 2/2 supine DLS. Manual Therapy (40720): timed minutes 30 . MT R iliopsoas/iliacus release MT L iliopsoas/iliacus release IDN [id number] with estim STM/DTM ls paraspinals with biofreeze. Modalities: untimed minutes 10 . estim with IDN. Neuromuscular Re-education (78655): timed minutes . 'Scores and Scales' Signatures Electronically signed by : Rocael Alicea, PT; Nov 05 2022 8:59AM EST (Author) [facility] PT Progress Noteon 3 PT Progress Note Therapy Diagnosis Assessed Sciatica of right side (724.3) (M54.31) Plan Progress with functional strength as tolerated with respect to tissue healing. Manual therapy PRN to improve/maintain ROM, prevent adhesion, reduce pain. Assessment Patient notes improved pain levels resultant from activities in therapy session. Improved tissue quality noted as well as body mechanics demonstrated after cueing and corrections. Patient continues to require active therapy to progress functional capabilities with decreasing pain levels and improving mechanics with functional activities including progression of Home exercise program. Tolerance to today's treatment was good. muscle fatigue noted. Patient appears motivated and compliant this date, demonstrating a working understanding of principals instructed and home program. Patient educated in dry needling precautions, indications, and contraindications. Patient is aware of the risks and benefits of procedure and wishes to have it performed. No adverse reaction to the dry needling noted. Adult Risk Screening There are no spiritual/cultural practices/values/needs that are important to know Initial Fall Risk Screening: EMELY has not fallen in the last 6 months. Her fall did not result in injury. EMELY does not have a fear of falling. She does not need assistance with sitting, standing or walking. Does not need assistance walking in her home. She does not need assistance in an unfamiliar setting. The patient is not using an assistive device. Please identify location of pain: R SIJ/LB, R gluteal fold. Pain Quality: tightness. Insurance Insurance reviewed Visit number: 17 20% coinsurance, $400 ded, 25 Visits/yr Subjective Patient reports:. having a good week, not much pain today or yesterday. Treatment Time in clinic started at 7:45 am Time in clinic ended at 8:30 am Total time in clinic is 50 minutes. Therapeutic exercise (13464): timed minutes 10 . UBE standing 2/2 supine DLS. Manual Therapy (80226): timed minutes 30 . MT R iliopsoas/iliacus release MT L iliopsoas/iliacus release IDN [id number] with estim STM/DTM ls paraspinals with biofreeze. Modalities: untimed minutes 10 . estim with IDN. Neuromuscular Re-education (26049): timed minutes . 'Scores and Scales' Signatures Electronically signed by : Rocael Alicea, PT; Oct 15 2022 9:45AM EST (Author) [facility] PT Progress Noteon 3 PT Progress Note Therapy Diagnosis Assessed Sciatica of right side (724.3) (M54.31) Plan Progress with functional strength as tolerated with respect to tissue healing. Manual therapy PRN to improve/maintain ROM, prevent adhesion, reduce pain. Assessment tenderness right sided paraspinals even after DN this date. Patient notes improved pain levels resultant from activities in therapy session. Improved tissue quality noted as well as body mechanics demonstrated after cueing and corrections. Patient continues to require active therapy to progress functional capabilities with decreasing pain levels and improving mechanics with functional activities including progression of Home exercise program. Tolerance to today's treatment was good. muscle fatigue noted. Patient appears motivated and compliant this date, demonstrating a working understanding of principals instructed and home program. Patient educated in dry needling precautions, indications, and contraindications. Patient is aware of the risks and benefits of procedure and wishes to have it performed. No adverse reaction to the dry needling noted. Adult Risk Screening There are no spiritual/cultural practices/values/needs that are important to know Initial Fall Risk Screening: EMELY has not fallen in the last 6 months. Her fall did not result in injury. EMELY does not have a fear of falling. She does not need assistance with sitting, standing or walking. Does not need assistance walking in her home. She does not need assistance in an unfamiliar setting. The patient is not using an assistive device. Please identify location of pain: R SIJ/LB, R gluteal fold. Pain Quality: tightness. Insurance Insurance reviewed Visit number: 16 20% coinsurance, $400 ded, 25 Visits/yr Subjective Patient reports:. I was sore yesterday but not as sore as I usually am at the beginning of the week. Treatment Time in clinic started at 7:45 am Time in clinic ended at 8:35 am Total time in clinic is 50 minutes. Therapeutic exercise (10829): timed minutes 15 . UBE standing 2/2 supine DLS level 4 with biofeedback TA/core stabilization training with cuff staying at 40 mm Hg added bent knee fall out added marches added s/l kicks added s/l lower. Manual Therapy (85119): timed minutes 30 . MT R iliopsoas/iliacus release MT L iliopsoas/iliacus release IDN [id number] with estim STM/DTM ls paraspinals with biofreeze. Modalities: untimed minutes 10 . estim with IDN. Neuromuscular Re-education (39515): timed minutes . 'Scores and Scales' Signatures Electronically signed by : Rocael Alicea, PT; Oct 08 2022 10:00AM EST (Author) [facility] PT Progress Noteon 3 PT Progress Note Therapy Diagnosis Assessed Sciatica of right side (724.3) (M54.31) Plan Progress with functional strength as tolerated with respect to tissue healing. Manual therapy PRN to improve/maintain ROM, prevent adhesion, reduce pain. Assessment Patient notes improved pain levels resultant from activities in therapy session. Improved tissue quality noted as well as body mechanics demonstrated after cueing and corrections. Patient continues to require active therapy to progress functional capabilities with decreasing pain levels and improving mechanics with functional activities including progression of Home exercise program. Tolerance to today's treatment was good. muscle fatigue noted. Patient appears motivated and compliant this date, demonstrating a working understanding of principals instructed and home program. Patient educated in dry needling precautions, indications, and contraindications. Patient is aware of the risks and benefits of procedure and wishes to have it performed. No adverse reaction to the dry needling noted. Adult Risk Screening There are no spiritual/cultural practices/values/needs that are important to know Initial Fall Risk Screening: EMELY has not fallen in the last 6 months. Her fall did not result in injury. EMELY does not have a fear of falling. She does not need assistance with sitting, standing or walking. Does not need assistance walking in her home. She does not need assistance in an unfamiliar setting. The patient is not using an assistive device. Please identify location of pain: R SIJ/LB, R gluteal fold. Pain Quality: tightness. Insurance Insurance reviewed Visit number: 15 20% coinsurance, $400 ded, 25 Visits/yr Subjective Patient reports:. sore on Thursday, over the weekend I get a lot of my housework done. It used t be sore until Thursday though. I am about at 2-3/10 today, much better but still consistently present. Denies radicular pain. Objective Ortho Reviewed HEP including DLS. Pt demonstrated teach back. Treatment Time in clinic started at 7:45 am Time in clinic ended at 8:35 am Total time in clinic is 50 minutes. Therapeutic exercise (85749): timed minutes 30 . UBE standing 2/2 supine DLS level 4 with biofeedback TA/core stabilization training with cuff staying at 40 mm Hg added bent knee fall out added marches added s/l kicks added s/l lower. Manual Therapy (22930): timed minutes 20 . MT R iliopsoas/iliacus release MT L iliopsoas/iliacus release IDN [id number] with estim STM/DTM ls paraspinals with biofreeze. Modalities: untimed minutes 10 . estim to multifidus. Neuromuscular Re-education (88002): timed minutes . 'Scores and Scales' Signatures Electronically signed by : Rocael Alicea, PT; Oct 01 2022 9:37AM EST (Author) Normal [facility] PT Progress Noteon 3 PT Progress Note Therapy Diagnosis Assessed Sciatica of right side (724.3) (M54.31) Plan Progress with functional strength as tolerated with respect to tissue healing. Manual therapy PRN to improve/maintain ROM, prevent adhesion, reduce pain. Assessment Patient notes improved pain levels resultant from activities in therapy session. Improved tissue quality noted as well as body mechanics demonstrated after cueing and corrections. Patient continues to require active therapy to progress functional capabilities with decreasing pain levels and improving mechanics with functional activities including progression of Home exercise program. Tolerance to today's treatment was good. muscle fatigue noted. Patient appears motivated and compliant this date, demonstrating a working understanding of principals instructed and home program. Patient educated in dry needling precautions, indications, and contraindications. Patient is aware of the risks and benefits of procedure and wishes to have it performed. No adverse reaction to the dry needling noted. Adult Risk Screening There are no spiritual/cultural practices/values/needs that are important to know Initial Fall Risk Screening: EMELY has not fallen in the last 6 months. Her fall did not result in injury. EMELY does not have a fear of falling. She does not need assistance with sitting, standing or walking. Does not need assistance walking in her home. She does not need assistance in an unfamiliar setting. The patient is not using an assistive device. Pain Scale: On a scale of 0 to 10, the patient rates the pain at 3. Please identify location of pain: R SIJ/LB, R gluteal fold. Pain Quality: tightness. Insurance Insurance reviewed Visit number: 14 20% coinsurance, $400 ded, 25 Visits/yr Subjective Patient reports:. 3/10 pain currently. Pain has been staying around 3/10 since last visit. Reports being stiffer in the morning. Pain in centralized to R SI/LB area and inferior gluteal fold. R hip flexor tightness. Pt has been stretching hip flexors and has discontinued work with chiropractor. Objective Ortho level 4 DLS fair. Treatment Time in clinic started at 7:45 am Time in clinic ended at 8:35 am Total time in clinic is 50 minutes. Therapeutic exercise (88273): timed minutes 30 . 4 minute w/u on arm erg supine DLS level 4 with biofeedback TA/core stabilization training with cuff staying at 40 mm Hg added bent knee fall out added marches added s/l kicks added s/l lower. Manual Therapy (78532): timed minutes 20 . MT R iliopsoas/iliacus release MT L iliopsoas/iliacus release IDN [id number] with estim. Modalities: untimed minutes 10 . estim to multifidus. Neuromuscular Re-education (60855): timed minutes . 'Scores and Scales' Signatures Electronically signed by : Rocael Alicea, PT; Sep 24 2022 12:23PM EST (Author) Normal [facility] PT Progress Noteon 3 PT Progress Note Therapy Diagnosis Assessed Sciatica of right side (724.3) (M54.31) Plan Progress with functional strength as tolerated with respect to tissue healing. Manual therapy PRN to improve/maintain ROM, prevent adhesion, reduce pain. Assessment Patient notes improved pain levels resultant from activities in therapy session. Improved tissue quality noted as well as body mechanics demonstrated after cueing and corrections. Patient continues to require active therapy to progress functional capabilities with decreasing pain levels and improving mechanics with functional activities including progression of Home exercise program. Tolerance to today's treatment was good. muscle fatigue noted. Patient appears motivated and compliant this date, demonstrating a working understanding of principals instructed and home program. Patient educated in dry needling precautions, indications, and contraindications. Patient is aware of the risks and benefits of procedure and wishes to have it performed. No adverse reaction to the dry needling noted. Adult Risk Screening There are no spiritual/cultural practices/values/needs that are important to know Initial Fall Risk Screening: EMELY has not fallen in the last 6 months. Insurance Insurance reviewed Visit number: 13 20% coinsurance, $400 ded, 25 Visits/yr Subjective Patient reports:. Went on vacation and the back held up pretty well considering the awful mattress. Precautions: Fall Risk: low Objective Ortho pt arrived late to appointment-. Ortho Special Tests Lumbar Special Tests: Active Straight Leg Raise Test: Right negative, Left negative Prone Instability Test: Right negative, Left negative Slump Test: Right negative, Left negative Crossed Straight Leg Test: Right negative SI Compression: Right negative, Left negative Additional Testing: Jim's Sign: negative Lumbar Quadrant Test: Right negative, Left negative. Treatment Time in clinic started at 755 Time in clinic ended at 840 Total time in clinic is 45 minutes. Therapeutic exercise (74198): timed minutes 10 . UBE standing 2/2 HEP review biofeedback with core stabs prone progression Access Code: [email or web address] URL: [email or web address] Date: 06/11/2022 Prepared by: Rocael Alicea Exercises Correct Standing Posture Correct Seated Posture Lying Prone - 5 x daily - 7 x weekly - 2- 3 minutes hold Static Prone on Elbows - 5 x daily - 7 x weekly - 10 reps - 10 hold Prone Push Ups on Forearms - 1-2 x daily - 7 x weekly - 10 reps - 10 hold Standing Lumbar Extension - 5 x daily - 7 x weekly - 10 reps Supine Sciatic Nerve Ulysses - 1-2 x daily - 7 x weekly - 20 reps Supine Transversus Abdominis Bracing - Hands on Stomach - 3 x daily - 7 x weekly - 10 reps - 10 hold Supine Pelvic Floor Contraction - 3 x daily - 7 x weekly - 10 reps - 10 hold Supine Multifidus with Heel Press - 3 x daily - 7 x weekly - 10 reps - 10 hold Bent Knee Fallouts with Alternating Legs - 1 x daily - 7 x weekly - 10 reps Supine March - 1 x daily - 7 x weekly - 10 reps Supine Transversus Abdominis Bracing with Leg Extension - 1 x daily - 7 x weekly - 10 reps Supine Heel Slides - 1 x daily - 7 x weekly - 10 reps . Manual Therapy (68294): timed minutes 30 . Iliacus/psoas release DTM gluteus medius, piriformis UPA L4L5 IDN [id number] with estim. Modalities: untimed minutes 10 . estim with IDN. 'Scores and Scales' Signatures Electronically signed by : Roceal Alicea, PT; Sep 10 2022 8:48AM EST (Author) Normal [facility] PT Progress Noteon 3 PT Progress Note Therapy Diagnosis Assessed Sciatica of right side (724.3) (M54.31) Plan Progress with functional strength as tolerated with respect to tissue healing. Manual therapy PRN to improve/maintain ROM, prevent adhesion, reduce pain. Assessment Patient notes improved pain levels resultant from activities in therapy session. Improved tissue quality noted as well as body mechanics demonstrated after cueing and corrections. Patient continues to require active therapy to progress functional capabilities with decreasing pain levels and improving mechanics with functional activities including progression of Home exercise program. Tolerance to today's treatment was good. muscle fatigue noted. Patient appears motivated and compliant this date, demonstrating a working understanding of principals instructed and home program. Patient educated in dry needling precautions, indications, and contraindications. Patient is aware of the risks and benefits of procedure and wishes to have it performed. No adverse reaction to the dry needling noted. Adult Risk Screening There are no spiritual/cultural practices/values/needs that are important to know Initial Fall Risk Screening: EMELY has not fallen in the last 6 months. Insurance Insurance reviewed Visit number: 12 20% coinsurance, $400 ded, 25 Visits/yr Subjective Patient reports:. The back is getting much better every day, although it is not all better. Precautions: Fall Risk: low Objective Ortho Supine DLS fair + level 4. Ortho Special Tests Lumbar Special Tests: Active Straight Leg Raise Test: Right negative, Left negative Prone Instability Test: Right negative, Left negative Slump Test: Right negative, Left negative Crossed Straight Leg Test: Right negative SI Compression: Right negative, Left negative Additional Testing: [place]'s Sign: negative Lumbar Quadrant Test: Right negative, Left negative. Treatment Time in clinic started at 700 Time in clinic ended at 800 Total time in clinic is 60 minutes. Therapeutic exercise (07232): timed minutes 25 . UBE standing 2/2 HEP review biofeedback with core stabs prone progression Access Code: [email or web address] URL: [email or web address] Date: 06/11/2022 Prepared by: Rocael Alicea Exercises Correct Standing Posture Correct Seated Posture Lying Prone - 5 x daily - 7 x weekly - 2- 3 minutes hold Static Prone on Elbows - 5 x daily - 7 x weekly - 10 reps - 10 hold Prone Push Ups on Forearms - 1-2 x daily - 7 x weekly - 10 reps - 10 hold Standing Lumbar Extension - 5 x daily - 7 x weekly - 10 reps Supine Sciatic Nerve Ulysses - 1-2 x daily - 7 x weekly - 20 reps Supine Transversus Abdominis Bracing - Hands on Stomach - 3 x daily - 7 x weekly - 10 reps - 10 hold Supine Pelvic Floor Contraction - 3 x daily - 7 x weekly - 10 reps - 10 hold Supine Multifidus with Heel Press - 3 x daily - 7 x weekly - 10 reps - 10 hold Bent Knee Fallouts with Alternating Legs - 1 x daily - 7 x weekly - 10 reps Supine June - 1 x daily - 7 x weekly - 10 reps Supine Transversus Abdominis Bracing with Leg Extension - 1 x daily - 7 x weekly - 10 reps Supine Heel Slides - 1 x daily - 7 x weekly - 10 reps . Manual Therapy (52717): timed minutes 30 . Iliacus/psoas release DTM gluteus medius, piriformis UPA L4L5 IDN [id number] with estim. Modalities: untimed minutes 10 . estim with IDN. 'Scores and Scales' Signatures Electronically signed by : Rocael Alicea, PT; Aug 27 2022 9:18AM EST (Author) Normal [facility] PT Progress Noteon 3 PT Progress Note Therapy Diagnosis Assessed Sciatica of right side (724.3) (M54.31) Plan Progress with functional strength as tolerated with respect to tissue healing. Manual therapy PRN to improve/maintain ROM, prevent adhesion, reduce pain. Assessment Patient notes improved pain levels resultant from activities in therapy session. Improved tissue quality noted as well as body mechanics demonstrated after cueing and corrections. Patient continues to require active therapy to progress functional capabilities with decreasing pain levels and improving mechanics with functional activities including progression of Home exercise program. Tolerance to today's treatment was good. muscle fatigue noted. Patient appears motivated and compliant this date, demonstrating a working understanding of principals instructed and home program. Patient educated in dry needling precautions, indications, and contraindications. Patient is aware of the risks and benefits of procedure and wishes to have it performed. No adverse reaction to the dry needling noted. Adult Risk Screening There are no spiritual/cultural practices/values/needs that are important to know Initial Fall Risk Screening: EMELY has not fallen in the last 6 months. Insurance Insurance reviewed Visit number: 11 20% coinsurance, $400 ded, 25 Visits/yr Subjective Patient reports:. the back has been pretty good this week, yesterday I did not even think about it. Today I notice it but still much better. Precautions: Fall Risk: low Objective Ortho Ortho Special Tests Lumbar Special Tests: Active Straight Leg Raise Test: Right negative, Left negative Prone Instability Test: Right negative, Left negative Slump Test: Right negative, Left negative Crossed Straight Leg Test: Right negative SI Compression: Right negative, Left negative Additional Testing: Jim's Sign: negative Lumbar Quadrant Test: Right negative, Left negative. Treatment Time in clinic started at 700 Time in clinic ended at 745 Total time in clinic is 45 minutes. Therapeutic exercise (02060): timed minutes 10 . UBE standing 2/2 HEP review biofeedback with core stabs prone progression Access Code: [email or web address] URL: [email or web address] Date: 06/11/2022 Prepared by: Rocael Alicea Exercises Correct Standing Posture Correct Seated Posture Lying Prone - 5 x daily - 7 x weekly - 2- 3 minutes hold Static Prone on Elbows - 5 x daily - 7 x weekly - 10 reps - 10 hold Prone Push Ups on Forearms - 1-2 x daily - 7 x weekly - 10 reps - 10 hold Standing Lumbar Extension - 5 x daily - 7 x weekly - 10 reps Supine Sciatic Nerve Ulysses - 1-2 x daily - 7 x weekly - 20 reps Supine Transversus Abdominis Bracing - Hands on Stomach - 3 x daily - 7 x weekly - 10 reps - 10 hold Supine Pelvic Floor Contraction - 3 x daily - 7 x weekly - 10 reps - 10 hold Supine Multifidus with Heel Press - 3 x daily - 7 x weekly - 10 reps - 10 hold Bent Knee Fallouts with Alternating Legs - 1 x daily - 7 x weekly - 10 reps Supine March - 1 x daily - 7 x weekly - 10 reps Supine Transversus Abdominis Bracing with Leg Extension - 1 x daily - 7 x weekly - 10 reps Supine Heel Slides - 1 x daily - 7 x weekly - 10 reps . Manual Therapy (48049): timed minutes 30 . Iliacus/psoas release DTM gluteus medius, piriformis UPA L4L5 IDN [id number] with estim. Modalities: untimed minutes 10 . estim with IDN. 'Scores and Scales' Signatures Electronically signed by : Rocael Alicea, PT; Aug 20 2022 7:53AM EST (Author) Normal [employer] PT Progress Noteon PT Progress Note Therapy Diagnosis Assessed Sciatica of right side (724.3) (M54.31) Plan Progress with functional strength as tolerated with respect to tissue healing. Manual therapy PRN to improve/maintain ROM, prevent adhesion, reduce pain. up to 10 additional prn. Assessment Functional progression can be further made by continuing physical therapy with skilled interventions provided by a physical therapist. The patient has demonstrated sustained progress toward functional goals and would benefit from continued skilled services to further attain documented goals. The patient requires education and training to ensure optimal outcomes and reach remaining functional goals. The remaining functional goals are expected to be met in a reasonable time frame. Patient appears motivated and compliant this date, demonstrating a working understanding of principals instructed and home program. Adult Risk Screening There are no spiritual/cultural practices/values/needs that are important to know Initial Fall Risk Screening: EMELY has not fallen in the last 6 months. Insurance Insurance reviewed Visit number: 10 20% coinsurance, $400 ded, 25 Visits/yr Subjective Patient reports:. I hurt on Thursday but not as bad as I used to hurt. Do my housework and cleaning over the weekend and do stretch lab. Objective Ortho + TPP right LS paraspinals. Ortho Special Tests Lumbar Special Tests: Active Straight Leg Raise Test: Right negative, Left negative Prone Instability Test: Right negative, Left negative Slump Test: Right negative, Left negative Crossed Straight Leg Test: Right negative SI Compression: Right negative, Left negative Additional Testing: [place]'s Sign: negative Lumbar Quadrant Test: Right negative, Left negative. Treatment Time in clinic started at 700 Time in clinic ended at 745 Total time in clinic is 45 minutes. Therapeutic exercise (65350): timed minutes 10 . UBE standing 2/2 HEP review biofeedback with core stabs prone progression Access Code: [email or web address] URL: [email or web address] Date: 06/11/2022 Prepared by: Rocael Alicea Exercises Correct Standing Posture Correct Seated Posture Lying Prone - 5 x daily - 7 x weekly - 2- 3 minutes hold Static Prone on Elbows - 5 x daily - 7 x weekly - 10 reps - 10 hold Prone Push Ups on Forearms - 1-2 x daily - 7 x weekly - 10 reps - 10 hold Standing Lumbar Extension - 5 x daily - 7 x weekly - 10 reps Supine Sciatic Nerve Ulysses - 1-2 x daily - 7 x weekly - 20 reps Supine Transversus Abdominis Bracing - Hands on Stomach - 3 x daily - 7 x weekly - 10 reps - 10 hold Supine Pelvic Floor Contraction - 3 x daily - 7 x weekly - 10 reps - 10 hold Supine Multifidus with Heel Press - 3 x daily - 7 x weekly - 10 reps - 10 hold Bent Knee Fallouts with Alternating Legs - 1 x daily - 7 x weekly - 10 reps Supine June - 1 x daily - 7 x weekly - 10 reps Supine Transversus Abdominis Bracing with Leg Extension - 1 x daily - 7 x weekly - 10 reps Supine Heel Slides - 1 x daily - 7 x weekly - 10 reps . Manual Therapy (44850): timed minutes 30 . Iliacus/psoas release DTM gluteus medius, piriformis UPA L4L5 IDN [id number] with estim. Modalities: untimed minutes 10 . estim with IDN. 'Scores and Scales' Signatures Electronically signed by : Rocael Alicea, PT; Aug 13 2022 8:49AM EST (Author) Normal [facility] Therapy Re-eval Noteon 08-13 Therapy Re-eval Note Therapy Diagnosis Assessed 1. Sciatica of right side (724.3) (M54.31) Plan Progress with functional strength as tolerated with respect to tissue healing. Manual therapy PRN to improve/maintain ROM, prevent adhesion, reduce pain. up to 10 additional prn. Assessment Functional progression can be further made by continuing physical therapy with skilled interventions provided by a physical therapist. The patient has demonstrated sustained progress toward functional goals and would benefit from continued skilled services to further attain documented goals. The patient requires education and training to ensure optimal outcomes and reach remaining functional goals. The remaining functional goals are expected to be met in a reasonable time frame. Patient appears motivated and compliant this date, demonstrating a working understanding of principals instructed and home program. Adult Risk Screening There are no spiritual/cultural practices/values/needs that are important to know Initial Fall Risk Screening: EMELY has not fallen in the last 6 months. Insurance Insurance reviewed Visit number: 10 20% coinsurance, $400 ded, 25 Visits/yr Subjective Patient reports:. I hurt on Thursday but not as bad as I used to hurt. Do my housework and cleaning over the weekend and do stretch lab. Objective Ortho + TPP right LS paraspinals. Ortho Special Tests Lumbar Special Tests: Active Straight Leg Raise Test: Right negative, Left negative Prone Instability Test: Right negative, Left negative Slump Test: Right negative, Left negative Crossed Straight Leg Test: Right negative SI Compression: Right negative, Left negative Additional Testing: Jim's Sign: negative Lumbar Quadrant Test: Right negative, Left negative. Treatment Time in clinic started at 700 Time in clinic ended at 745 Total time in clinic is 45 minutes. Therapeutic exercise (24946): timed minutes 10 . UBE standing 2/2 HEP review biofeedback with core stabs prone progression Access Code: [email or web address] URL: [email or web address] Date: 06/11/2022 Prepared by: Rocael Alicea Exercises Correct Standing Posture Correct Seated Posture Lying Prone - 5 x daily - 7 x weekly - 2- 3 minutes hold Static Prone on Elbows - 5 x daily - 7 x weekly - 10 reps - 10 hold Prone Push Ups on Forearms - 1-2 x daily - 7 x weekly - 10 reps - 10 hold Standing Lumbar Extension - 5 x daily - 7 x weekly - 10 reps Supine Sciatic Nerve Ulysses - 1-2 x daily - 7 x weekly - 20 reps Supine Transversus Abdominis Bracing - Hands on Stomach - 3 x daily - 7 x weekly - 10 reps - 10 hold Supine Pelvic Floor Contraction - 3 x daily - 7 x weekly - 10 reps - 10 hold Supine Multifidus with Heel Press - 3 x daily - 7 x weekly - 10 reps - 10 hold Bent Knee Fallouts with Alternating Legs - 1 x daily - 7 x weekly - 10 reps Supine March - 1 x daily - 7 x weekly - 10 reps Supine Transversus Abdominis Bracing with Leg Extension - 1 x daily - 7 x weekly - 10 reps Supine Heel Slides - 1 x daily - 7 x weekly - 10 reps . Manual Therapy (63019): timed minutes 30 . Iliacus/psoas release DTM gluteus medius, piriformis UPA L4L5 IDN [id number] with estim. Modalities: untimed minutes 10 . estim with IDN. 'Scores and Scales' Signatures Electronically signed by : Rocael Alicea, PT; Aug 13 2022 8:49AM EST (Author) Normal [employer] PT Progress Noteon 3 PT Progress Note Therapy Diagnosis Assessed Sciatica of right side (724.3) (M54.31) Plan Progress with functional strength as tolerated with respect to tissue healing. Manual therapy PRN to improve/maintain ROM, prevent adhesion, reduce pain. Assessment Patient educated in dry needling precautions, indications, and contraindications. Patient is aware of the risks and benefits of procedure and wishes to have it performed. No adverse reaction to the dry needling noted. Patient notes improved pain levels resultant from activities in therapy session. Improved tissue quality noted as well as body mechanics demonstrated after cueing and corrections. Patient continues to require active therapy to progress functional capabilities with decreasing pain levels and improving mechanics with functional activities including progression of Home exercise program. Tolerance to today's treatment was good. muscle fatigue noted. Patient appears motivated and compliant this date, demonstrating a working understanding of principals instructed and home program. Adult Risk Screening There are no spiritual/cultural practices/values/needs that are important to know Initial Fall Risk Screening: EMELY has not fallen in the last 6 months. Insurance Insurance reviewed Visit number: 9 20% coinsurance, $400 ded, 25 Visits/yr Subjective Patient reports:. doing stretch lab 1x/week and chiro every 3 weeks. weather changes really aggravate the back, a lot of pain on Thursday when the temp dropped 40 degrees. every day it has gotten better, still have a trigger point in the right side of low back and it is tender to the touch. Objective Ortho + TPP right LS paraspinals. Treatment Time in clinic started at 745 Time in clinic ended at 835 Total time in clinic is 45 minutes. Therapeutic exercise (72041): timed minutes 20 . UBE standing 2/2 biofeedback with core stabs prone progression Access Code: [email or web address] URL: [email or web address] Date: 06/11/2022 Prepared by: Rocael Alicea Exercises Correct Standing Posture Correct Seated Posture Lying Prone - 5 x daily - 7 x weekly - 2- 3 minutes hold Static Prone on Elbows - 5 x daily - 7 x weekly - 10 reps - 10 hold Prone Push Ups on Forearms - 1-2 x daily - 7 x weekly - 10 reps - 10 hold Standing Lumbar Extension - 5 x daily - 7 x weekly - 10 reps Supine Sciatic Nerve Ulysses - 1-2 x daily - 7 x weekly - 20 reps Supine Transversus Abdominis Bracing - Hands on Stomach - 3 x daily - 7 x weekly - 10 reps - 10 hold Supine Pelvic Floor Contraction - 3 x daily - 7 x weekly - 10 reps - 10 hold Supine Multifidus with Heel Press - 3 x daily - 7 x weekly - 10 reps - 10 hold Bent Knee Fallouts with Alternating Legs - 1 x daily - 7 x weekly - 10 reps Supine March - 1 x daily - 7 x weekly - 10 reps Supine Transversus Abdominis Bracing with Leg Extension - 1 x daily - 7 x weekly - 10 reps Supine Heel Slides - 1 x daily - 7 x weekly - 10 reps . Manual Therapy (66485): timed minutes 30 . Iliacus/psoas release DTM gluteus medius, piriformis STM/DTM LS paraspinals with biofreeze UPA L4L5 Right IDN [id number] with estim. Modalities: untimed minutes 10 . estim with IDN. 'Scores and Scales' Signatures Electronically signed by : Rocael Alicea, PT; Aug 06 2022 8:54AM EST (Author) Normal [employer] [facility] PT Progress Noteon 3 PT Progress Note Therapy Diagnosis Assessed Sciatica of right side (724.3) (M54.31) Sciatica (724.3) (M54.30) Plan Progress with functional strength as tolerated with respect to tissue healing. Manual therapy PRN to improve/maintain ROM, prevent adhesion, reduce pain. Assessment Patient educated in dry needling precautions, indications, and contraindications. Patient is aware of the risks and benefits of procedure and wishes to have it performed. No adverse reaction to the dry needling noted. Patient notes improved pain levels resultant from activities in therapy session. Improved tissue quality noted as well as body mechanics demonstrated after cueing and corrections. Patient continues to require active therapy to progress functional capabilities with decreasing pain levels and improving mechanics with functional activities including progression of Home exercise program. Tolerance to today's treatment was good. muscle fatigue noted. Patient appears motivated and compliant this date, demonstrating a working understanding of principals instructed and home program. Adult Risk Screening There are no spiritual/cultural practices/values/needs that are important to know Initial Fall Risk Screening: EMELY has not fallen in the last 6 months. Insurance Insurance reviewed Visit number: 8 20% coinsurance, $400 ded, 25 Visits/yr Subjective Patient reports:. This has been the best week. Pain is less 2-3/10 on average. Objective Ortho supine DLD Level 4 fair decreased Spasm this date. Treatment Time in clinic started at 830 Time in clinic ended at 925 Total time in clinic is 55 minutes. Therapeutic exercise ([id number]): timed minutes 20 . UBE standing 2/2 biofeedback with core stabs Access Code: [email or web address] URL: [email or web address] Date: 06/11/2022 Prepared by: Rocael Alicea Exercises Correct Standing Posture Correct Seated Posture Lying Prone - 5 x daily - 7 x weekly - 2- 3 minutes hold Static Prone on Elbows - 5 x daily - 7 x weekly - 10 reps - 10 hold Prone Push Ups on Forearms - 1-2 x daily - 7 x weekly - 10 reps - 10 hold Standing Lumbar Extension - 5 x daily - 7 x weekly - 10 reps Supine Sciatic Nerve Ulysses - 1-2 x daily - 7 x weekly - 20 reps Supine Transversus Abdominis Bracing - Hands on Stomach - 3 x daily - 7 x weekly - 10 reps - 10 hold Supine Pelvic Floor Contraction - 3 x daily - 7 x weekly - 10 reps - 10 hold Supine Multifidus with Heel Press - 3 x daily - 7 x weekly - 10 reps - 10 hold Bent Knee Fallouts with Alternating Legs - 1 x daily - 7 x weekly - 10 reps Supine March - 1 x daily - 7 x weekly - 10 reps Supine Transversus Abdominis Bracing with Leg Extension - 1 x daily - 7 x weekly - 10 reps Supine Heel Slides - 1 x daily - 7 x weekly - 10 reps . Manual Therapy ([id number]): timed minutes 30 . Iliacus/psoas release DTM gluteus medius, piriformis STM/DTM LS paraspinals with biofreeze UPA L4L5 Right IDN [id number] with estim. Modalities: untimed minutes 10 . estim with IDN. 'Scores and Scales' Signatures Electronically signed by : Rocael Alicea, PT; Jul 18 2022 10:33AM EST (Author) Normal [facility] PT Progress Noteon 3 PT Progress Note Therapy Diagnosis Assessed Sciatica (724.3) (M54.30) Sciatica of right side (724.3) (M54.31) Plan Progress with functional strength as tolerated with respect to tissue healing. Manual therapy PRN to improve/maintain ROM, prevent adhesion, reduce pain. Assessment Patient educated in dry needling precautions, indications, and contraindications. Patient is aware of the risks and benefits of procedure and wishes to have it performed. No adverse reaction to the dry needling noted. Patient notes improved pain levels resultant from activities in therapy session. Improved tissue quality noted as well as body mechanics demonstrated after cueing and corrections. Patient continues to require active therapy to progress functional capabilities with decreasing pain levels and improving mechanics with functional activities including progression of Home exercise program. Tolerance to today's treatment was good. muscle fatigue noted. Patient appears motivated and compliant this date, demonstrating a working understanding of principals instructed and home program. Adult Risk Screening There are no spiritual/cultural practices/values/needs that are important to know Initial Fall Risk Screening: EMELY has not fallen in the last 6 months. Insurance Insurance reviewed Visit number: 7 20% coinsurance, $400 ded, 25 Visits/yr Subjective Patient reports:. had a pretty good week. pain about 2-3/10. Treatment Time in clinic started at 245 Time in clinic ended at 325 Total time in clinic is 40 minutes. Therapeutic exercise (57167): timed minutes 10 . UBE standing 2/2 biofeedback with core stabs Access Code: [email or web address] URL: [email or web address] Date: 06/11/2022 Prepared by: Rocael Alicea Exercises Correct Standing Posture Correct Seated Posture Lying Prone - 5 x daily - 7 x weekly - 2- 3 minutes hold Static Prone on Elbows - 5 x daily - 7 x weekly - 10 reps - 10 hold Prone Push Ups on Forearms - 1-2 x daily - 7 x weekly - 10 reps - 10 hold Standing Lumbar Extension - 5 x daily - 7 x weekly - 10 reps Supine Sciatic Nerve Ulysses - 1-2 x daily - 7 x weekly - 20 reps Supine Transversus Abdominis Bracing - Hands on Stomach - 3 x daily - 7 x weekly - 10 reps - 10 hold Supine Pelvic Floor Contraction - 3 x daily - 7 x weekly - 10 reps - 10 hold Supine Multifidus with Heel Press - 3 x daily - 7 x weekly - 10 reps - 10 hold Bent Knee Fallouts with Alternating Legs - 1 x daily - 7 x weekly - 10 reps Supine June - 1 x daily - 7 x weekly - 10 reps Supine Transversus Abdominis Bracing with Leg Extension - 1 x daily - 7 x weekly - 10 reps Supine Heel Slides - 1 x daily - 7 x weekly - 10 reps . Manual Therapy ([id number]): timed minutes 30 . Iliacus/psoas release DTM gluteus medius, piriformis STM/DTM LS paraspinals with biofreeze UPA L4L5 Right IDN [id number] with estim. Modalities: untimed minutes 10 . estim with IDN. 'Scores and Scales' Signatures Electronically signed by : Rocael Alicea, PT; Jul 09 2022 3:24PM EST (Author) Normal [facility] PT Progress Noteon 3 PT Progress Note Therapy Diagnosis Assessed Sciatica of right side (724.3) (M54.31) Sciatica (724.3) (M54.30) Plan Progress with functional strength as tolerated with respect to tissue healing. Manual therapy PRN to improve/maintain ROM, prevent adhesion, reduce pain. Assessment Patient educated in dry needling precautions, indications, and contraindications. Patient is aware of the risks and benefits of procedure and wishes to have it performed. No adverse reaction to the dry needling noted. Patient notes improved pain levels resultant from activities in therapy session. Improved tissue quality noted as well as body mechanics demonstrated after cueing and corrections. Patient continues to require active therapy to progress functional capabilities with decreasing pain levels and improving mechanics with functional activities including progression of Home exercise program. Tolerance to today's treatment was good. muscle fatigue noted. Patient appears motivated and compliant this date, demonstrating a working understanding of principals instructed and home program. Adult Risk Screening There are no spiritual/cultural practices/values/needs that are important to know Initial Fall Risk Screening: EMELY has not fallen in the last 6 months. Insurance Insurance reviewed Visit number: 6 20% coinsurance, $400 ded, 25 Visits/yr Subjective Patient reports:. having some pain, but better than it has been. stopping the chiro and stretch lab for now. Treatment Time in clinic started at 745 Time in clinic ended at 835 Total time in clinic is 50 minutes. Therapeutic exercise (03715): timed minutes 15 . UBE standing 2/2 biofeedback with core stabs Access Code: [email or web address] URL: [email or web address] Date: 06/11/2022 Prepared by: Rocael Alicea Exercises Correct Standing Posture Correct Seated Posture Lying Prone - 5 x daily - 7 x weekly - 2- 3 minutes hold Static Prone on Elbows - 5 x daily - 7 x weekly - 10 reps - 10 hold Prone Push Ups on Forearms - 1-2 x daily - 7 x weekly - 10 reps - 10 hold Standing Lumbar Extension - 5 x daily - 7 x weekly - 10 reps Supine Sciatic Nerve Ulysses - 1-2 x daily - 7 x weekly - 20 reps Supine Transversus Abdominis Bracing - Hands on Stomach - 3 x daily - 7 x weekly - 10 reps - 10 hold Supine Pelvic Floor Contraction - 3 x daily - 7 x weekly - 10 reps - 10 hold Supine Multifidus with Heel Press - 3 x daily - 7 x weekly - 10 reps - 10 hold Bent Knee Fallouts with Alternating Legs - 1 x daily - 7 x weekly - 10 reps Supine June - 1 x daily - 7 x weekly - 10 reps Supine Transversus Abdominis Bracing with Leg Extension - 1 x daily - 7 x weekly - 10 reps Supine Heel Slides - 1 x daily - 7 x weekly - 10 reps . Manual Therapy ([id number]): timed minutes 30 . Iliacus/psoas release DTM gluteus medius, piriformis STM/DTM LS paraspinals with biofreeze UPA L4L5 Right IDN [id number]. 'Scores and Scales' Signatures Electronically signed by : Rocael Alicea, PT; Jul 03 2022 7:45AM EST (Author) Normal [facility] PT Progress Noteon 3 PT Progress Note Therapy Diagnosis Assessed Sciatica of right side (724.3) (M54.31) Sciatica (724.3) (M54.30) Plan Progress with functional strength as tolerated with respect to tissue healing. Manual therapy PRN to improve/maintain ROM, prevent adhesion, reduce pain. Assessment Patient notes improved pain levels resultant from activities in therapy session. Improved tissue quality noted as well as body mechanics demonstrated after cueing and corrections. Patient continues to require active therapy to progress functional capabilities with decreasing pain levels and improving mechanics with functional activities including progression of Home exercise program. Tolerance to today's treatment was good. muscle fatigue noted. Patient appears motivated and compliant this date, demonstrating a working understanding of principals instructed and home program. Adult Risk Screening There are no spiritual/cultural practices/values/needs that are important to know Initial Fall Risk Screening: EMELY has not fallen in the last 6 months. Insurance Insurance reviewed Visit number: 4 20% coinsurance, $400 ded, 25 Visits/yr Subjective Patient reports:. more bad days than good days. Thurs was a bad day last week after the dry needling. Treatment Time in clinic started at 700 Time in clinic ended at 755 Total time in clinic is 55 minutes. Therapeutic exercise ([id number]): timed minutes 25 . UBE standing 2/2 biofeedback with core stabs Access Code: [email or web address] URL: [email or web address] Date: 06/11/2022 Prepared by: Rocael Ailcea Exercises Correct Standing Posture Correct Seated Posture Lying Prone - 5 x daily - 7 x weekly - 2- 3 minutes hold Static Prone on Elbows - 5 x daily - 7 x weekly - 10 reps - 10 hold Prone Push Ups on Forearms - 1-2 x daily - 7 x weekly - 10 reps - 10 hold Standing Lumbar Extension - 5 x daily - 7 x weekly - 10 reps Supine Sciatic Nerve Ulysses - 1-2 x daily - 7 x weekly - 20 reps Supine Transversus Abdominis Bracing - Hands on Stomach - 3 x daily - 7 x weekly - 10 reps - 10 hold Supine Pelvic Floor Contraction - 3 x daily - 7 x weekly - 10 reps - 10 hold Supine Multifidus with Heel Press - 3 x daily - 7 x weekly - 10 reps - 10 hold Bent Knee Fallouts with Alternating Legs - 1 x daily - 7 x weekly - 10 reps Supine March - 1 x daily - 7 x weekly - 10 reps Supine Transversus Abdominis Bracing with Leg Extension - 1 x daily - 7 x weekly - 10 reps Supine Heel Slides - 1 x daily - 7 x weekly - 10 reps . Manual Therapy (60292): timed minutes 30 . Iliacus/psoas release DTM gluteus medius, piriformis STM/DTM LS paraspinals with biofreeze UPA L4L5 Right . 'Scores and Scales' Signatures Electronically signed by : Rocael Alicea, PT; Jun 11 2022 2:43PM EST (Author) Normal [facility] PT Progress Noteon 3 PT Progress Note Therapy Diagnosis Assessed Sciatica of right side (724.3) (M54.31) Sciatica (724.3) (M54.30) Plan Progress with functional strength as tolerated with respect to tissue healing. Manual therapy PRN to improve/maintain ROM, prevent adhesion, reduce pain. Assessment Patient educated in dry needling precautions, indications, and contraindications. Patient is aware of the risks and benefits of procedure and wishes to have it performed. No adverse reaction to the dry needling noted. Patient notes improved pain levels resultant from activities in therapy session. Improved tissue quality noted as well as body mechanics demonstrated after cueing and corrections. Patient continues to require active therapy to progress functional capabilities with decreasing pain levels and improving mechanics with functional activities including progression of Home exercise program. Tolerance to today's treatment was good. muscle fatigue noted. Patient appears motivated and compliant this date, demonstrating a working understanding of principals instructed and home program. Adult Risk Screening There are no spiritual/cultural practices/values/needs that are important to know Initial Fall Risk Screening: EMELY has not fallen in the last 6 months. Insurance Insurance reviewed Visit number: 3 20% coinsurance, $400 ded, 25 Visits/yr Subjective Patient reports:. Thursday was the first day that I woke up and did not even think about my back. Overall better but still have pain. today 06/27. Treatment Time in clinic started at 1030 Time in clinic ended at 1130 Total time in clinic is 60 minutes. Therapeutic exercise (27686): timed minutes 15 . UBE standing 05/22 Access Code: [email or web address] URL: [email or web address] Date: 05/26/2022 Prepared by: Rocael Alicea Exercises Correct Standing Posture Correct Seated Posture Lying Prone - 5 x daily - 7 x weekly - 2- 3 minutes hold Static Prone on Elbows - 5 x daily - 7 x weekly - 10 reps - 10 hold Prone Push Ups on Forearms - 1-2 x daily - 7 x weekly - 10 reps - 10 hold Standing Lumbar Extension - 5 x daily - 7 x weekly - 10 reps Supine Sciatic Nerve Ulysses - 1-2 x daily - 7 x weekly - 20 reps Supine Transversus Abdominis Bracing - Hands on Stomach - 3 x daily - 7 x weekly - 10 reps - 10 hold Supine Pelvic Floor Contraction - 3 x daily - 7 x weekly - 10 reps - 10 hold Supine Multifidus with Heel Press - 3 x daily - 7 x weekly - 10 reps - 10 hold . Manual Therapy (44235): timed minutes 30 . Iliacus/psoas release DTM gluteus medius, piriformis STM/DTM LS paraspinals with biofreeze UPA L4L5 Right IDN [id number] bialteral Ktape LS H. 'Scores and Scales' Signatures Electronically signed by : Rocael Alicea, PT; Jun 04 2022 8:36AM EST (Author) Normal [facility] PT Progress Noteon 3 PT Progress Note Therapy Diagnosis Assessed Sciatica of right side (724.3) (M54.31) Sciatica (724.3) (M54.30) Plan Progress with functional strength as tolerated with respect to tissue healing. Manual therapy PRN to improve/maintain ROM, prevent adhesion, reduce pain. Assessment Patient educated in dry needling precautions, indications, and contraindications. Patient is aware of the risks and benefits of procedure and wishes to have it performed. No adverse reaction to the dry needling noted. Patient notes improved pain levels resultant from activities in therapy session. Improved tissue quality noted as well as body mechanics demonstrated after cueing and corrections. Patient continues to require active therapy to progress functional capabilities with decreasing pain levels and improving mechanics with functional activities including progression of Home exercise program. Tolerance to today's treatment was good. muscle fatigue noted. Patient appears motivated and compliant this date, demonstrating a working understanding of principals instructed and home program. Adult Risk Screening There are no spiritual/cultural practices/values/needs that are important to know Initial Fall Risk Screening: EMELY has not fallen in the last 6 months. Insurance Insurance reviewed Visit number: 2 20% coinsurance, $400 ded, 25 Visits/yr Subjective Patient reports:. I was good for 4 days after the initial treatment 06/27. today 5-. Right sided low back/SI, when pain does radiate it is radiating to the hip and not the gluteal. Treatment Time in clinic started at 1030 Time in clinic ended at 1130 Total time in clinic is 60 minutes. Therapeutic exercise (42180): timed minutes 30 . UBE standing / Access Code: [email or web address] URL: [email or web address] Date: 05/26/2022 Prepared by: Rocael Alicea Exercises Correct Standing Posture Correct Seated Posture Lying Prone - 5 x daily - 7 x weekly - 2- 3 minutes hold Static Prone on Elbows - 5 x daily - 7 x weekly - 10 reps - 10 hold Prone Push Ups on Forearms - 1-2 x daily - 7 x weekly - 10 reps - 10 hold Standing Lumbar Extension - 5 x daily - 7 x weekly - 10 reps Supine Sciatic Nerve Ulysses - 1-2 x daily - 7 x weekly - 20 reps Supine Transversus Abdominis Bracing - Hands on Stomach - 3 x daily - 7 x weekly - 10 reps - 10 hold Supine Pelvic Floor Contraction - 3 x daily - 7 x weekly - 10 reps - 10 hold Supine Multifidus with Heel Press - 3 x daily - 7 x weekly - 10 reps - 10 hold . Manual Therapy (83893): timed minutes 30 . Iliacus/psoas release DTM gluteus medius, piriformis STM/DTM LS paraspinals with biofreeze UPA L4L5 Right IDN [id number] bialteral Ktape LS H. 'Scores and Scales' Signatures Electronically signed by : Rocael Alicea, PT; May 26 2022 1:10PM EST (Author) Normal [facility] PT Initial Evaluationon PT Initial Evaluation Therapy Diagnosis Assessed Sciatica of right side (724.3) (M54.31) Plan of Care Goals: Goals set and discussed today. In 10 visits, EMELY [place] will achieve the following goals: Patient will report resting pain on Visual Analog Scale < or = 0. Pain at worst will be < or =0. Pain with (patients primary complaint) will be < or = 0. Oswestry Disability Index (MATT) score will improve >/= 13 points to demonstrate overall functional improvement as it relates to patients back complaints. Lumbar AROM will improve to: flexion >/= 90 , extension >/= 20 , side bend >/= 25 to improve joint mechanics with functional activities. Upper abdominal strength will be >/= 5 , lower abdominal strength will be >/= 45 , internal/external oblique strength will be >/= 5 ,to improve lumbar stabilization during activities. Patient will demonstrate activation of transverse abdominis, multifidus, and pelvic floor during stabilization program and with upright posture to demonstrate improved core stabilization and reduce risk of reinjury. Patient will improve hamstring length >/= 10 degrees to demonstrate improved joint mechanics during functional activities. Strength in Hip Abduction >/= 5/5 , Hip Extension >/= 5/5 , Hip External Rotation >/=5/5 , to improve joint stability with functional activities including ambulation. Patient will correctly perform home exercise program independently, demonstrated through patient teach back upon discharge. 1 Planned interventions include:. Treatment may include: Therapeutic Exercise (PROM, AA/AROM, Flexibility, Strengthening, Stabilization, HEP instruction). Therapeutic Activities (Transfers, Body Mechanics, Work Related Activities, Closed Chain, Agility and Power). Manual Techniques (Soft tissue Mobilization, Joint mobilization/Distraction , Muscle Energy Techniques, Lymphatic Drainage, Dry Needling). Neuromuscular Reeducation (Postural Training, Balance/Proprioception, Relaxation Techniques). Biofeedback. Aquatic Exercise. Modalities: Ultrasound, Moist Heat, Cryotherapy, Vasopneumatic with or without Cryotherapy. Electrical Stimulation (TENS/IFC/ Pre modulated for pain relief, NMES for Muscle reeducation). Gait Training. Orthotic Fit and Training. Strapping, Kinesio taping. Frequency and duration: for 10 visits. Potential to achieve rehab goals is good Plan of care was developed with input and agreement by the patient. Assessment The patient presents to Physical Therapy with signs and symptoms consistent with the medical diagnosis of Lumbo sacral dysfunction with radicular involvement. Greco impairments include: pain poor posture decreased core strength and difficulty with functional activities such as house work, driving, lifting. Skilled PT is required to address these greco impairments and to provide and progress with an appropriate home exercise program. This evaluation is of mod complexity due to the nature of the patient?s presentation as well as the comorbidities and medical factors included in this evaluation. Reason For Visit Initial Evaluation . LBP with radicular symptoms. Referred by: Gene Roberto Adult Risk Screening There are no spiritual/cultural practices/values/needs that are important to know Initial Fall Risk Screening: EMELY has not fallen in the last 6 months. Insurance Insurance reviewed Visit number: 1 20% coinsurance, $400 ded, 25 Visits/yr Subjective Mechanism of Injury:. Primary Complaint/ Functional Limitation: limited ability to Prior level of function: Independent Date of onset: Apr 07 2022 Cause: 2019 woke up in the middle of the night with pain shooting down right leg> left Pain Location: right SI posterior right leg proximal thigh Current Pain: 6/10 Worst Pain: 8/10 Description of pain: sharp with movt, constant dull throb Aggravating Activities: house work, driving, cough bearing down Relieving Activities: lay flat on back on floor, short walk Work Requirements/ Hobbies: seated work- but cant sit too long (get up every 15 minutes) Prior Treatment and results of Prior treatment: self help Haily Constitutional Symptoms: Patient Denies Fever Chills Nausea Vomiting Loss of appetite Abdominal pain Change in bowel function Weight loss or gain Headache Unexplained fatigue Malaise Lethargy Weakness Arthralgia Myalgia Difficulty in sleeping Breathing trouble Barriers to treatment/ learning: none Dr Roberto note 03/28/22: History of thoracic spasms/diffuse myalgias/right sacroiliac discomfort- she's visited w/ chiropractor several times in spring. stretches, yoga and exercises suggested, but she admits this hasn't been easy to continue. Tension / prolonged desk sitting is main issue she feels. Not active issue In the past, she followed with a holistic MD, who does acupuncture monthly. Presently experiencing several painful episodes. She has been taking Advil and YouTube stretches. Suggested follow up with a time analysis clerk physiotherapist. She will f/u with her (more content not included)... Normal [facility] PT Initial Evaluationon 04-21 PT Initial Evaluation No report was sent Normal [facility] 50+ Yearson 03-28-2022 50+ Years Diagnoses/Problems Assessed BMI 31.0-31.9,adult (V85.31) (Z68.31) Class 1 obesity with body mass index (BMI) of 31.0 to 31.9 in adult (278.00,V85.31) (E66.9,Z68.31) Encounter for immunization (V03.89) (Z23) Encounter for preventive health examination (V70.0) (Z00.00) Elevated LFTs (790.6) (R79.89) Elevated serum creatinine (790.99) (R79.89) Prediabetes (790.29) (R73.03) Hypertension (401.9) (I10) Acid reflux (530.81) (K21.9) Dyslipidemia (272.4) (E78.5) Headache, migraine (346.90) (G43.909) Obstructive sleep apnea on CPAP (327.23,V46.8) (G47.33,Z99.89) Allergic rhinitis (477.9) (J30.9) ragweed is worst season Colon polyps (211.3) (K63.5) Orders Elevated LFTs Hepatic Function Panel; Status:Active; Requested for:18Aug2022; Perform:Lab Services - Lab To Draw (Blood Test); Due:[id number];Ordered; For:Elevated LFTs; Ordered By:Jhoan Roberto; Elevated serum creatinine TSH WITH REFLEX TO FREE T4 IF ABNORMAL; Status:Active; Requested for:18Aug2022; Perform:Lab Services - Lab To Draw (Blood Test); Due:[id number];Ordered; For:Elevated serum creatinine; Ordered By:Jhoan Roberto; Prediabetes Basic Metabolic Panel; Status:Active; Requested for:18Aug2022; Perform:Lab Services - Lab To Draw (Blood Test); Due:[id number];Ordered; For:Prediabetes; Ordered By:Jhoan Roberto; Hemoglobin A1C; Status:Active; Requested for:18Aug2022; Perform:Lab Services - Lab To Draw (Blood Test); Due:[id number];Ordered; For:Prediabetes; Ordered By:Jhoan Roberto; Patient Discussion/Summary Covid 19 pandemic precautions - reiterated the need for patient to continue to practice safe pandemic measures while out away from the home. Consistently wearing a mask as recommended, as well as practicing social distancing remain important. Handwashing remains an important priority as well. Covid vaccination series completed. Fasting labs-updated 04/10.- reviewed. Labs ordered before next visit - 10/10. Near syncopal episode- 12/24/21 at approximately 7:30 am. Reports feeling hot prior to episode. Paramedics checked vitals. BP 90/50. Blood sugar 146. Discussed daily nutritional habits and how to optimize caloric intake. We will order labs and an echocardiogram. She will continue to push fluids to prevent dehydration she will eat more in the morning she will reduce her blood pressure plan using only a half of the amlodipine in the evening while continuing the losartan HCTZ in the morning. Improved presently. She will watch for symptoms and call with any lingering concerns History of chest pain syndrome - negative stress echo August 2017. Not problematic presently Hypertension/dyslipidemi a/elevated weight-she is on medication at age 35, around 2004 but lost weight and was able to discontinue this. 2 brothers and her father have had hypertension Blood pressure improved. Her goal is to get off some of the medicine. She will work towards weight loss. With her increased activities and change of diet, we will reduce her Amlodipine. She will start a half tablet at dinner time. Prediabetes/elevated weight-she remembers with her first she gained a lot of weight and had some glucose concerns. She understands weight loss will help improve this. She will continue this effort and reassess before follow-up Remarkably A1c improved from 5.9% 01/08 and 5.5% 09/08. 04/10 5.6%. Elevated weight with BMI was at 31- we spoke at length. She has lost some 30 pounds around 2002, with exercising 5 days weekly and eating 6 rather small meals daily. She remembers that plan quite well. It worked for her quite well. Encouraged her towards efforts towards consistent exercise and dietary discipline and caloric restriction. She will consider options and plot out and new planned in the new year aiming towards her birthday as a goal to get significant weight off, She now has a smart watch. She is tracking her walking and is walking more. Included in this is the [employer] pal calorie counting jo-ann. Encouraged her to follow her calories and then set a goal, 1 pound a week for 12 weeks Exercise routine-using her smart watch to close the circles and walk more-each day-encouraged her to continue efforts Postnasal drip/scratchy throat/occasional cough-recurrent since the fall. Recently on antibiotics for sinusitis. She will restart her allergy meds and call if persistent postnasal drip not improved Seasonal congestion-she will continue Flonase and Zyrtec. Complains of sinus pressure/allergies. Prescribed antibiotics. She will take probiotics with her antibiotics and continue her allergy plan. Follow up with concerns. Recent scratchy throat and productive cough. Encouraged increasing Flonase use to BID. Right upper abdominal wall lipoma- removed July [address] Johnson. She will use a heating pad for the residual soreness. Pathology-simple lipoma Elevated LFTs- fatty liver appearance on ultrasound-she will recheck after limiting alcohol. She understands weight loss is important Follow-up LFTs 08/19 (more content not included)... Normal [facility] Tobacco Screening.on 022 Adult depression screening assessment No -[facility] [address] Work Phone: Fall risk assessment a) No falls within the last year [facility] [address] Work Phone: Tobacco use status [facility] b) No -[facility] [address] Work Phone: CBCon 03-27-2022 Erythrocyte distribution width (RBC) [Ratio] 12.7 % Normal 11.5 - 14.5 [facility] Comment on above: Performed By: #### C BC #### [address] [id number] Hematocrit (Bld) [Volume fraction] 40.1 % Normal 36.0 - 46.0 [facility] Comment on above: Performed By: #### C BC #### [address] [id number] Hemoglobin (Bld) [Mass/Vol] 13.7 g/dL Normal 12.0 - 16.0 [facility] Comment on above: Performed By: #### C BC #### [address] [id number] MCHC (RBC) [Mass/Vol] 34.2 g/dL Normal 32.0 - 36.0 [facility] Comment on above: Performed By: #### C BC #### [address] [id number] MCV (RBC) [Entitic vol] 97 fL Normal 80 - 100 [facility] Comment on above: Performed By: #### C BC #### [address] [id number] Platelets (Bld) [#/Vol] 191 10*3/uL Normal 150 - 450 [facility] Comment on above: Performed By: #### C BC #### [address] [id number] RBC 4.13 x10E12/L Normal 4.00 - 5.20 [facility] Comment on above: Performed By: #### C BC #### [address] [id number] WBC (Bld) [#/Vol] 7.5 10*3/uL Normal 4.4 - 11.3 [facility] Comment on above: Performed By: #### C BC #### [address] [id number] HEMOGLOBIN A1Con 03-27-2022 Glucose [Mass/Vol] 114 mg/dL Normal [facility] Comment on above: Performed By: #### H BA1E #### [facility] [address] [place] [address] HbA1c (Bld) [Mass fraction] 5.6 % Normal [facility] Comment on above: Result Comment: Diag nosis of Diabetes-Adults Non-Diabetic: < or = 5.6% Increased risk for developing diabetes: 5.7-6.4% Diagnostic of diabetes: > or = 6.5% . Monitoring of Diabetes Age (y) Therapeutic Goal (%) Adults: >18 <7.0 Pediatrics: 13-18 <7.5 7-12 <8.0 0- 6 7.5-8.5 [place] [employer]. Diabetes Care 33(S1), Apr 2009. Performed By: #### H BA1E #### [facility] [address] [place] [address] HEPATIC FUNCTION PANELon Albumin [Mass/Vol] 4.2 g/dL Normal 3.4 - 5.0 [facility] Comment on above: Performed By: #### H EPFP #### [address] [id number] ALP [Catalytic activity/Vol] 41 U/L Normal 33 - 110 [facility] Comment on above: Performed By: #### H EPFP #### [address] [id number] ALT [Catalytic activity/Vol] 66 U/L High 7 - 45 [facility] Comment on above: Result Comment: Tammy ents treated with Sulfasalazine may generate falsely decreased results for ALT. Performed By: #### H EPFP #### [address] [id number] AST [Catalytic activity/Vol] 70 U/L High 9 - 39 [facility] Comment on above: Performed By: #### H EPFP #### [address] [id number] Bilirubin [Mass/Vol] 0.7 mg/dL Normal 0.0 - 1.2 [facility] Comment on above: Performed By: #### H EPFP #### [address] [id number] Bilirubin.indirect [Mass/Vol] 0.2 mg/dL Normal 0.0 - 0.3 [facility] Comment on above: Performed By: #### H EPFP #### [address] [id number] Protein [Mass/Vol] 7.4 g/dL Normal 6.4 - 8.2 [facility] Comment on above: Performed By: #### H EPFP #### [address] [id number] Hemoglobin A1Con 03-27-2022 Glucose [Mass/Vol] 114 mg/dL [facility] [address] Work Phone: HbA1c (Bld) [Mass fraction] 5.6 % [facility] [address] Work Phone: Comment on above: Diagnosis of Diabete s-Adults Non-Diabetic: < or = 5.6% Increased risk for developing diabetes: 5.7-6.4% Diagnostic of diabetes: > or = 6.5%. Monitoring of Diabetes Age (y) Therapeutic Goal (%) Adults: >18 <7.0 Pediatrics: 13-18 <7.5 7-12 <8.0 0- 6 7.5-8.5 [place] [employer]. Diabetes Care 33(S1), Apr 2009. Hepatic Function Panelon Albumin BCP dye [Mass/Vol] 4.2 g/dL 3.4 - 5.0 [place] [address] Work Phone: ALP [Catalytic activity/Vol] 41 U/L 33 - 110 [place] [address] Work Phone: ALT With P-5'-P [Catalytic activity/Vol] 66 U/L above high threshold 7 - 45 [place] [address] Work Phone: Comment on above: Patients treated wit h Sulfasalazine may generate falsely decreased results for ALT. AST With P-5'-P [Catalytic activity/Vol] 70 U/L above high threshold 9 - 39 [place] [address] Work Phone: Bilirubin [Mass/Vol] 0.7 mg/dL 0.0 - 1.2 [place] [address] Work Phone: Bilirubin.direct [Mass/Vol] 0.2 mg/dL 0.0 - 0.3 [place] [address] Work Phone: Protein [Mass/Vol] 7.4 g/dL 6.4 - 8.2 [facility] [place] [address] Work Phone: Laboratory - Chemistry and C hemistry - challengeon 03-27-2022 TSH Qn 1.04 m[IU]/L See Below [place] [address] Work Phone: Comment on above: Reference Range: 0.4 4 - 3.98 TSH testing is performed using different testing methodology at [facility] than at other [facility]. Direct result comparisons should only be made within the same method. Laboratory - Hematology and Cell countson 03-27-2022 Erythrocyte distribution width (RBC) [Ratio] 12.7 % See Below [place] [address] Work Phone: Comment on above: Reference Range: 11. 5 - 14.5 Hematocrit (Bld) [Volume fraction] 40.1 % See Below [place] [address] Work Phone: Comment on above: Reference Range: 36. 0 - 46.0 Hemoglobin (Bld) [Mass/Vol] 13.7 g/dL See Below [place] [address] Work Phone: Comment on above: Reference Range: 12. 0 - 16.0 MCHC (RBC) [Mass/Vol] 34.2 g/dL See Below [place] [address] Work Phone: Comment on above: Reference Range: 32. 0 - 36.0 MCV (RBC) [Entitic vol] 97 fL 80 - 100 [place] [address] Work Phone: [phone] Platelets (Bld) [#/Vol] 191 10*3/uL 150 - 450 [place] [address] Work Phone: RBC (Bld) [#/Vol] 4.13 {x10E12/L} See Below [place] [address] Work Phone: Comment on above: Reference Range: 4.0 0 - 5.20 WBC (Bld) [#/Vol] 7.5 10*3/uL 4.4 - 11.3 [place] [address] Work Phone: TSH WITH REFLEX TO FREE T4 I F ABNORMALon 03-27-2022 TSH Qn 1.04 m[IU]/L Normal 0.44 - 3.98 [facility] Comment on above: Result Comment: TSH testing is performed using different testing methodology at [facility] than at other [facility]. Direct result comparisons should only be made within the same method. Performed By: #### T HYDS #### [facility] [address] [place], [place] [id number] VITAMIN B12on 03-27-2022 Cobalamin (Vitamin B12) [Mass/Vol] 474 pg/mL Normal 211 - 911 [facility] Comment on above: Performed By: #### V TB12 ####[facility] [place], [place] [id number] VITAMIN D, 25-HYDROXYon VITAMIN D, 25-HYDROXY 65 ng/mL Normal [facility] Comment on above: Result Comment: . DEFICIENCY: < 20 NG/ML INSUFFICIENCY: 20-29 NG/ML SUFFICIENCY: 30-100 NG/ML THIS ASSAY ACCURATELY QUANTIFIES THE SUM OF VITAMIN D3, 25-HYDROXY AND VIT D2,25-HYDROXY. Performed By: #### V TDOH ####[facility] [place], [place] [id number] Vitamin B12, Serumon 022 Cobalamin (Vitamin B12) [Mass/Vol] 474 pg/mL 211 - 911 [facility] [address] Work Phone: Vitamin D 25-Hydroxyon 03-27 25-hydroxyvitamin D3 [Mass/Vol] 65 ng/mL [facility] [address] Work Phone: Comment on above: .DEFICIENCY: < 20 NG /MLINSUFFICIENCY: 20-29 NG/MLSUFFICIENCY: 30-100 NG/MLTHIS ASSAY ACCURATELY QUANTIFIES THE SUM OFVITAMIN D3, 25-HYDROXY AND VIT D2,25-HYDROXY. Echocardiogramon 01-29-2022 Echocardiography [facility], [address] [place] [address] and TRANSTHORACIC ECHOCARDIOGRAM REPORT Patient Name: EMELY W MERLONE Reading Physician: [id number] Rhonda Juan MD Study Date: 01/29/2022 Referring Physician: JHOAN ROBERTO MRN/PID: [id number] PCP: Accession/Order#: [id number] Department Location: [facility] Date of : 1970 Fellow: Brianda Squires Gender: F Nurse: Admit Date: [place] Attendant: Devin Castro [facility] Admission Status: Outpatient Additional Staff: Height: 170.18 cm CC Report to: Weight: 91.17 kg Study Type: Echocardiogram BSA: 2.03 m2 Blood Pressure: 122 /70 mmHg Diagnosis/ICD: [id number] Indication: Near syncope Procedure/CPT: Echo Complete w Full [id number] Patient History: Pertinent History: Chest pain syndrome, obesity, HTN, KENDALL. Study Detail: The following Echo studies were performed: 2D, M-Mode, Doppler and color flow. PHYSICIAN INTERPRETATION: Left Ventricle: The left ventricular systolic function is normal, with an estimated ejection fraction of 60-65%. There are no regional wall motion abnormalities. The left ventricular cavity size is normal. Spectral Doppler shows a normal pattern of left ventricular diastolic filling. Left Atrium: The left atrium is normal in size. Right Ventricle: The right ventricle is normal in size. There is normal right ventricular global systolic function. Right Atrium: The right atrium is normal in size. Aortic Valve: The aortic valve is trileaflet. There is no evidence of aortic valve regurgitation. The peak instantaneous gradient of the aortic valve is 10.2 mmHg. The mean gradient of the aortic valve is 5.5 mmHg. Mitral Valve: The mitral valve is normal in structure. There is trace mitral valve regurgitation. Tricuspid Valve: The tricuspid valve is structurally normal. There is trace tricuspid regurgitation. The right ventricular systolic pressure is unable to be estimated. Pulmonic Valve: The pulmonic valve is structurally normal. There is physiologic pulmonic valve regurgitation. Pericardium: There is a trivial pericardial effusion. There is an anterior clear space. Aorta: The aortic root is normal. There is mild dilatation of the ascending aorta. Systemic Veins: The inferior vena cava appears to be of normal size. There is IVC inspiratory collapse greater than 50%. In comparison to the previous echocardiogram(s): There are no prior studies on this patient for comparison purposes. No prior echocardiogram available for comparison. CONCLUSIONS: 1. Left ventricular systolic function is normal with a 60-65% estimated ejection fraction. 2. No prior echocardiogram available for comparison. QUANTITATIVE DATA SUMMARY: 2D MEASUREMENTS: Normal Ranges: LAs: 3.68 cm (2.7-4.0cm) IVSd: 1.13 cm (0.6-1.1cm) LVPWd: 0.97 cm (0.6-1.1cm) LVIDd: 3.77 cm (3.9-5.9cm) LVIDs: 2.64 cm LV Mass Index: 61.2 g/m2 LV % FS 29.9 % LA VOLUME: Normal Ranges: LA Vol A4C: 48.4 ml (22+/-6mL/m2) LA Vol A2C: 70.1 ml LA Vol BP: 58.8 ml LA Vol Index A4C: 23.9 ml/m2 LA Vol Index A2C: 34.6 ml/m2 LA Vol Index BP: 29.0 ml/m2 LA Area A4C: 17.7 cm2 LA Area A2C: 21.1 cm2 LA Major [place] A4C: 5.5 cm LA [place] A2C: 5.4 cm LA Vol A4C: 50.6 ml LA Vol A2C: 65.3 ml RA VOLUME BY A/L METHOD: Normal Ranges: RA Area A4C: 14.6 cm2 AORTA MEASUREMENTS: Normal Ranges: Ao Sinus, d: 3.40 cm (2.1-3.5cm) Asc Ao, d: 4.00 cm (2.1-3.4cm) LV SYSTOLIC FUNCTION BY 2D PLANIMETRY (MOD): Normal Ranges: EF-A4C View: 68.2 % (>55%) EF-A2C View: 69.0 % EF-Biplane: 69.2 % LV DIASTOLIC FUNCTION: Normal Ranges: MV Peak E: 0.82 m/s (0.7-1.2 m/s) MV Peak A: 0.93 m/s (0.42-0.7 m/s) E/A Ratio: 0.87 (1.0-2.2) MV e' 0.08 m/s (>8.0) MV lateral e' 0.09 m/s MV medial e' 0.06 m/s MV A Dur: 101.50 msec E/e' Ratio: 10.19 (<8.0) PulmV Sys Star: 60.63 cm/s PulmV Reeves Star: 32.72 cm/s PulmV S/D Star: 1.85 MITRAL VALVE: Normal Ranges: MV DT: 229 msec (150-240msec) AORTIC VALVE: Normal Ranges: AoV Vmax: 1.60 m/s (<1.7m/s) AoV Peak P.2 mmHg (<20mmHg) AoV Mean P.5 mmHg (1.7-11.5mmHg) LVOT Max Star: 1.39 m/s (<1.1m/s) AoV VTI: 30.49 cm (18-25cm) LVOT VTI: 28.02 cm LVOT Diameter: 1.99 cm (1.8-2.4cm) AoV Area, VTI: 2.85 cm2 (2.5-5.5cm2) AoV Area,Vmax: 2.70 cm2 (2.5-4.5cm2) AoV Dimensionless Index: 0.92 RIGHT VENTRICLE: TAPSE: 28.0 mm RV s' 0.12 m/s TRICUSPID VALVE/RVSP: Normal Ranges: IVC Diam: 1.70 cm PULMONIC VALVE: Normal Ranges: PV Max Star: 1.0 m/s (0.6-0.9m/s) PV Max P.9 mmHg Pulmonary Veins: PulmV Reeves Star: 32.72 cm/s PulmV S/D Star: 1.85 PulmV Sys Star: 60.63 cm/s AORTA: Asc Ao Diam 3.93 cm [id number] Rhonda Juan MD Electronically signed on 01/29/2022 at 5:35:08 PM Final Normal [facility] [place] HEMOGLOBIN A1Con 01-07-2022 Glucose [Mass/Vol] 123 mg/dL Normal [facility] Comment on above: Performed By: #### H BA1E #### [facility] [address] [place] [address] HbA1c (Bld) [Mass fraction] 5.9 % Abnormal [facility] Comment on above: Result Comment: Diag nosis of Diabetes-Adults Non-Diabetic: < or = 5.6% Increased risk for developing diabetes: 5.7-6.4% Diagnostic of diabetes: > or = 6.5% . Monitoring of Diabetes Age (y) Therapeutic Goal (%) Adults: >18 <7.0 Pediatrics: 13-18 <7.5 7-12 <8.0 0- 6 7.5-8.5 [place] [employer]. Diabetes Care 33(S1), Apr 2009. Performed By: #### H BA1E #### [facility] [address] [place] [address] Hemoglobin A1Con 01-06-2022 Glucose [Mass/Vol] 123 mg/dL [facility] Work Phone: HbA1c (Bld) [Mass fraction] 5.9 % Abnormal [facility] Work Phone: Comment on above: Diagnosis of Diabete s-Adults Non-Diabetic: < or = 5.6% Increased risk for developing diabetes: 5.7-6.4% Diagnostic of diabetes: > or = 6.5%. Monitoring of Diabetes Age (y) Therapeutic Goal (%) Adults: >18 <7.0 Pediatrics: 13-18 <7.5 7-12 <8.0 0- 6 7.5-8.5 [place] [employer]. Diabetes Care 33(S1), Apr 2009. Laboratory - Chemistry and C hemistry - challengeon 01-06-2022 TSH Qn 5.20 m[IU]/L above high threshold See Below [facility] Work Phone: Comment on above: Reference Range: 0.4 4 - 3.98 TSH testing is performed using different testing methodology at [facility] than at other [facility]. Direct result comparisons should only be made within the same method. RENAL FUNCTION PANELon 01-06 Albumin [Mass/Vol] 4.1 g/dL Normal 3.4 - 5.0 [facility] Comment on above: Performed By: #### R ENAL #### [address] [id number] Anion gap [Moles/Vol] 16 mmol/L Normal 10 - 20 [facility] Comment on above: Performed By: #### R ENAL #### [address], [place] [id number] Calcium [Mass/Vol] 10.0 mg/dL Normal 8.6 - 10.3 [facility] Comment on above: Performed By: #### R ENAL #### [address] [id number] Chloride [Moles/Vol] 91 mmol/L Low 98 - 107 [facility] Comment on above: Performed By: #### R ENAL #### [address] [id number] Creatinine [Mass/Vol] 0.91 mg/dL Normal 0.50 - 1.05 [facility] Comment on above: Performed By: #### R ENAL #### [address] [id number] GFR/1.73 sq M.predicted among non-blacks MDRD (S/P/Bld) [Vol rate/Area] 76 mL/min/{1.73_m2} Normal >90 [facility] Comment on above: Result Comment: CALC ULATIONS OF ESTIMATED GFR ARE PERFORMED USING THE 2020 CKD-EPI STUDY REFIT EQUATION WITHOUT THE RACE VARIABLE FOR THE IDMS-TRACEABLE CREATININE METHODS. https://jasn.asnjournals.org/content/early/ASN.2345406 988 Performed By: #### R ENAL #### [address] [id number] Glucose [Mass/Vol] 88 mg/dL Normal 74 - 99 [facility] Comment on above: Performed By: #### R ENAL #### [address] [id number] HCO3 (Bld) [Moles/Vol] 29 mmol/L Normal 21 - 32 [facility] Comment on above: Performed By: #### R ENAL #### [address] [id number] Phosphate [Mass/Vol] 3.0 mg/dL Normal 2.5 - 4.9 [facility] Comment on above: Result Comment: The performance characteristics of phosphorus testing in heparinized plasma have been validated by the individual laboratory site where testing is performed. Testing on heparinized plasma is not approved by the FDA; however, such approval is not necessary. Performed By: #### R ENAL #### [address] [id number] Potassium [Moles/Vol] 3.9 mmol/L Normal 3.5 - 5.3 [facility] Comment on above: Performed By: #### R ENAL #### [address] [id number] Sodium [Moles/Vol] 132 mmol/L Low 136 - 145 [facility] Comment on above: Performed By: #### R ENAL #### [address] [id number] Urea nitrogen [Mass/Vol] 22 mg/dL Normal 6 - 23 [facility] Comment on above: Performed By: #### R ENAL #### [address] [id number] Renal Function Panelon 01-06 Albumin BCP dye [Mass/Vol] 4.1 g/dL 3.4 - 5.0 [facility] Work Phone: [phone] Anion gap [Moles/Vol] 16 mmol/L 10 - 20 [facility] Work Phone: [phone] Calcium [Mass/Vol] 10.0 mg/dL 8.6 - 10.3 [facility] Work Phone: Chloride [Moles/Vol] 91 mmol/L below low threshold 98 - 107 [facility] Work Phone: CO2 [Moles/Vol] 29 mmol/L 21 - 32 [facility] Work Phone: Creatinine [Mass/Vol] 0.91 mg/dL See Below [facility] Work Phone: Comment on above: Reference Range: 0.5 0 - 1.05 Glucose [Mass/Vol] 88 mg/dL 74 - 99 [facility] Work Phone: Phosphate [Mass/Vol] 3.0 mg/dL 2.5 - 4.9 [facility] Work Phone: Comment on above: The performance sandra acteristics of phosphorus testing in heparinized plasma have been validated by the individual laboratory site where testing is performed. Testing on heparinized plasma is not approved by the FDA; however, such approval is not necessary. Potassium [Moles/Vol] 3.9 mmol/L 3.5 - 5.3 [facility] Work Phone: Sodium [Moles/Vol] 132 mmol/L below low threshold 136 - 145 [facility] Work Phone: Urea nitrogen [Mass/Vol] 22 mg/dL 6 - 23 [facility] Work Phone: Renal Function Panel 76 {mL/min/1.73m2} >90 [facility] Work Phone: Comment on above: CALCULATIONS OF LUISA MATED GFR ARE PERFORMED USING THE 2020 CKD-EPI STUDY REFIT EQUATION WITHOUT THE RACE VARIABLE FOR THE IDMS-TRACEABLE CREATININE METHODS.https://jasn.asnjournals.org/content/early/ASN .9618155079 T4 - Free Thyroxine, Serumon 01-06-2022 Free T4 [Mass/Vol] 0.75 ng/dL See Below [facility] Work Phone: Comment on above: Reference Range: 0.6 1 - 1.12 Thyroxine Free testing is performed using different testing methodology at [facility] than at [facility]. Direct result comparisons should only be made within the same method.. Biotin can cause falsely elevated free T4 results. Patients taking a Biotin dose of up to 10 mg/day should refrain from taking Biotin for 24 hours before sample collection. Patient taking a Biotin dose of >10 mg/day should consult with their physician or the laboratory before the blood draw. THYROXINE,FREEon 01-06-2022 THYROXINE,FREE 0.75 ng/dL Normal 0.61 - 1.12 [facility] Comment on above: Result Comment: Thyr oxine Free testing is performed using different testing methodology at [facility] than at [facility]. Direct result comparisons should only be made within the same method. . Biotin can cause falsely elevated free T4 results. Patients taking a Biotin dose of up to 10 mg/day should refrain from taking Biotin for 24 hours before sample collection. Patient taking a Biotin dose of >10 mg/day should consult with their physician or the laboratory before the blood draw. Performed By: #### T 4FRE #### [address] [id number] TSH WITH REFLEX TO FREE T4 I F ABNORMALon 01-06-2022 TSH Qn 5.20 m[IU]/L High 0.44 - 3.98 [facility] Comment on above: Result Comment: TSH testing is performed using different testing methodology at [facility] than at other [facility]. Direct result comparisons should only be made within the same method. Performed By: #### T HYDS #### [address] [id number] Laboratory - Chemistry and C hemistry - challengeon 01-01-2022 Albumin BCP dye [Mass/Vol] 4.2 g/dL 3.4 - 5.0 [facility] 3201 Work Phone: ALP [Catalytic activity/Vol] 49 U/L 33 - 110 [place] [address] Work Phone: ALT With P-5'-P [Catalytic activity/Vol] 58 U/L above high threshold 7 - 45 [place] [address] Work Phone: Comment on above: Patients treated wit h Sulfasalazine may generate falsely decreased results for ALT. Anion gap [Moles/Vol] 16 mmol/L 10 - 20 [facility] 3201 Work Phone: AST With P-5'-P [Catalytic activity/Vol] 64 U/L above high threshold 9 - 39 [place] [address] Work Phone: Bilirubin [Mass/Vol] 0.9 mg/dL 0.0 - 1.2 [facility] 3201 Work Phone: Calcium [Mass/Vol] 9.3 mg/dL 8.6 - 10.3 [place] [address] Work Phone: Chloride [Moles/Vol] 92 mmol/L below low threshold 98 - 107 [place] [address] Work Phone: CO2 [Moles/Vol] 31 mmol/L 21 - 32 [place] [address] Work Phone: Creatinine [Mass/Vol] 1.81 mg/dL above high threshold See Below [place] [address] Work Phone: Comment on above: Reference Range: 0.5 0 - 1.05 Glucose [Mass/Vol] 98 mg/dL 74 - 99 [place] [address] Work Phone: Potassium [Moles/Vol] 4.4 mmol/L 3.5 - 5.3 [place] [address] Work Phone: [phone] Protein [Mass/Vol] 7.2 g/dL 6.4 - 8.2 [place] [address] Work Phone: [phone] Sodium [Moles/Vol] 135 mmol/L below low threshold 136 - 145 [place] [address] Work Phone: TSH Qn 3.77 m[IU]/L See Below [place] [address] Work Phone: Comment on above: Reference Range: 0.4 4 - 3.98 TSH testing is performed using different testing methodology at [facility] than at other [facility]. Direct result comparisons should only be made within the same method. Urea nitrogen [Mass/Vol] 17 mg/dL 6 - 23 [place] [address] Work Phone: Laboratory - Hematology and Cell countson 01-01-2022 Erythrocyte distribution width (RBC) [Ratio] 14.1 % See Below [place] [address] Work Phone: Comment on above: Reference Range: 11. 5 - 14.5 Hematocrit (Bld) [Volume fraction] 43.5 % See Below [place] [address] Work Phone: Comment on above: Reference Range: 36. 0 - 46.0 Hemoglobin (Bld) [Mass/Vol] 14.3 g/dL See Below [place] [address] Work Phone: Comment on above: Reference Range: 12. 0 - 16.0 MCHC (RBC) [Mass/Vol] 32.9 g/dL See Below [place] [address] Work Phone: Comment on above: Reference Range: 32. 0 - 36.0 MCV (RBC) [Entitic vol] 97 fL 80 - 100 [place] [address] Work Phone: Platelets (Bld) [#/Vol] 233 10*3/uL 150 - 450 [place] [address] Work Phone: RBC (Bld) [#/Vol] 4.49 {x10E12/L} See Below [place] [address] Work Phone: Comment on above: Reference Range: 4.0 0 - 5.20 WBC (Bld) [#/Vol] 8.4 10*3/uL 4.4 - 11.3 [place] [address] Work Phone: No Panel Informationon 01-01 33 {mL/min/1.73m2} Abnormal >90 [place] [address] Work Phone: Comment on above: CALCULATIONS OF LUISA MATED GFR ARE PERFORMED USING THE 2020 CKD-EPI STUDY REFIT EQUATION WITHOUT THE RACE VARIABLE FOR THE IDMS-TRACEABLE CREATININE METHODS.https://jasn.asnjournals.org/content//ASN .1925081342 Office Visiton 01-01-2022 Follow-up visit Diagnoses/Problems Encounter for preventive health examination (V70.0) (Z00.00) BMI 31.0-31.9,adult (V85.31) (Z68.31) Class 1 obesity with body mass index (BMI) of 31.0 to 31.9 in adult (278.00,V85.31) (E66.9,Z68.31) Peripheral neuropathy (356.9) (G62.9) Near syncope (780.2) (R55) Sinusitis (473.9) (J32.9) Hypertension (401.9) (I10) Allergic rhinitis (477.9) (J30.9) ragweed is worst season Acute sinusitis (461.9) (J01.90) Patient Discussion/Summary By signing my name below, I, Gage Rivas, attest that this documentation has been prepared under the direction and in the presence of Dr. Roberto. All medical record entries made by the Scribe were at my direction and personally dictated by me. I have reviewed the chart and agree that the record accurately reflects my personal performance of the history, physical exam, discussion and plan. Covid 19 pandemic precautions - reiterated the need for patient to continue to practice safe pandemic measures while out away from the home. Consistently wearing a mask as recommended, as well as practicing social distancing remain important. Handwashing remains an important priority as well. Covid vaccination series completed. Fasting labs-updated 09/08. CBC ordered today to check for anemia. She will do labs before scheduled visit in 04/10. near syncopal episode- 12/24/21 at approximately 7:30 am. Reports feeling hot prior to episode. Paramedics checked vitals. BP 90/50. Blood sugar 146. Discussed daily nutritional habits and how to optimize caloric intake. We will order labs and an echocardiogram. She will continue to push fluids to prevent dehydration she will eat more in the morning she will reduce her blood pressure plan using only a half of the amlodipine in the evening while continuing the losartan HCTZ in the morning. She will watch for symptoms and call with any lingering concerns Right upper abdominal wall lipoma- removed July [address] Johnson. She will use a heating pad for the residual soreness. Pathology-simple lipoma Elevated LFTs- fatty liver appearance on ultrasound-she will recheck after limiting alcohol. She understands weight loss is important Follow-up LFTs 09/08 normalized History of chest pain syndrome - negative stress echo August 2017. Not problematic presently Hypertension/dyslipidemi a/elevated weight-she is on medication at age 35, around 2004 but lost weight and was able to discontinue this. 2 brothers and her father have had hypertension Blood pressure improved. Her goal is to get off some of the medicine. She will work towards weight loss. With her increased activities and change of diet, we will reduce her Amlodipine. She will start a half tablet at dinner time. Prediabetes/elevated weight-she remembers with her first she gained a lot of weight and had some glucose concerns. She understands weight loss will help improve this. She will continue this effort and reassess before follow-up Remarkably A1c improved from 5.9% 01/08, now 5.5% 09/08 Elevated weight with BMI was at 31- we spoke at length. She has lost some 30 pounds around 2002, with exercising 5 days weekly and eating 6 rather small meals daily. She remembers that plan quite well. It worked for her quite well. Encouraged her towards efforts towards consistent exercise and dietary discipline and caloric restriction. She will consider options and plot out and new planned in the new year aiming towards her birthday as a goal to get significant weight off, She now has a smart watch. She is tracking her walking and is walking more. Included in this is the [employer] pal calorie counting jo-ann. Encouraged her to follow her calories and then set a goal, 1 pound a week for 12 weeks Peripheral neuropathy- ongoing for several months. Distal part of feet, bilaterally. Left more noticeable than right. History and exam suggest early peripheral sensory neuropathy. Considering her relatively young age, neurology consultation recommended. Exercise routine-using her smart watch to close the circles and walk more-each day-encouraged her to continue efforts Gskxhjfrf-edvjwyzkwv-sha will add Augmentin and restart Flonase and Zyrtec Seasonal congestion-she will continue Flonase and Zyrtec. Complains of sinus pressure/allergies. Prescribed antibiotics. She will take probiotics with her antibiotics and continue her allergy plan. Follow up with concerns. Sleep apnea- severe-she will follow up with Dr. Bell and continue Flonase nightly Tolerating CPAP better than expected-and its helping with more energy during the day. She will see her back in February 2022 Slightly elevated TSH- her mother had hypothyroidism and her maternal aunt had what sounds like Graves'. she will reassess thyroid studies in 12 weeks TSH okay 09/08 Gynecologic care- reminded patient to follow with her waist presser for gynecologic exams regularly as recommended by her waist presser- Dr. Perez; - annually. She actually follows with her nurse pr (more content not included)... Normal [employer] Tobacco Screening.on 022 Adult depression screening assessment No [facility] [employer] Work Phone: Fall risk assessment a) No falls within the last year [facility] [employer] Work Phone: Tobacco use status [facility] b) No [facility] [employer] Work Phone: Tobacco Screening.on 022 Adult depression screening assessment No [facility] [employer] Work Phone: Fall risk assessment a) No falls within the last year [facility] [employer] Work Phone: Tobacco use status [facility] b) No [facility] [employer] Work Phone: ALT - Alanine Aminotransfera se, Serumon 09-12-2021 ALT With P-5'-P [Catalytic activity/Vol] 26 U/L 7 - 45 [facility] [employer] Work Phone: Comment on above: Patients treated wit h Sulfasalazine may generate falsely decreased results for ALT. Hemoglobin A1Con 09-12-2021 Glucose [Mass/Vol] 111 mg/dL [facility] [employer] Work Phone: HbA1c (Bld) [Mass fraction] 5.5 % [facility] 3201 Work Phone: Comment on above: Diagnosis of Diabete s-Adults Non-Diabetic: < or = 5.6% Increased risk for developing diabetes: 5.7-6.4% Diagnostic of diabetes: > or = 6.5%. Monitoring of Diabetes Age (y) Therapeutic Goal (%) Adults: >18 <7.0 Pediatrics: 13-18 <7.5 7-12 <8.0 0- 6 7.5-8.5 [place] [employer]. Diabetes Care 33(S1), Apr 2009. Laboratory - Chemistry and C hemistry - challengeon 09-12-2021 Anion gap [Moles/Vol] 19 mmol/L 10 - 20 [place] [address] Work Phone: [phone] Calcium [Mass/Vol] 9.1 mg/dL 8.6 - 10.3 [place] [address] Work Phone: Chloride [Moles/Vol] 97 mmol/L below low threshold 98 - 107 [place] [address] Work Phone: CO2 [Moles/Vol] 26 mmol/L 21 - 32 [place] [address] Work Phone: Creatinine [Mass/Vol] 0.80 mg/dL See Below [place] [address] Work Phone: [phone] Comment on above: Reference Range: 0.5 0 - 1.05 Glucose [Mass/Vol] 88 mg/dL 74 - 99 [facility] 320 Work Phone: Potassium [Moles/Vol] 3.5 mmol/L 3.5 - 5.3 [place] [address] Work Phone: Sodium [Moles/Vol] 138 mmol/L 136 - 145 [place] [address] Work Phone: TSH Qn 5.48 m[IU]/L above high threshold See Below [facility] 3201 Work Phone: Comment on above: Reference Range: 0.4 4 - 3.98 TSH testing is performed using different testing methodology at [facility] than at other [facility]. Direct result comparisons should only be made within the same method. Urea nitrogen [Mass/Vol] 12 mg/dL 6 - 23 [facility] 3201 Work Phone: Lipid Panelon 09-12-2021 Cholesterol [Mass/Vol] 284 mg/dL above high threshold 0 - 199 [facility] 3201 Work Phone: Comment on above: . AGE DESIRABLE BORD CHIQUI HIGH HIGH 0-19 Y 0 - 169 170 - 199 >/= 200 20-24 Y 0 - 189 190 - 224 >/= 225 >24 Y 0 - 199 200 - 239 >/= 240 All ranges are based on fasting samples. Specific therapeutic targets will vary based on patient-specific cardiac risk.. Pediatric guidelines reference:Pediatrics 2011, 128(S5). Adult guidelines reference: NCEP ATPIII Guidelines, LISSA 2001, 258:2486-97. Venipuncture immediately after or during the administration of Metamizole may lead to falsely low results. Testing should be performed immediately prior to Metamizole dosing. Cholesterol in HDL [Mass/Vol] 49.0 mg/dL [facility] 3201 Work Phone: Comment on above: . AGE VERY LOW LOW N ORMAL HIGH 0-19 Y < 35 < 40 40-45 ---- 20- 24 Y ---- < 40 >45 ---- >24 Y ---- < 40 40-60 >60. Cholesterol in LDL [Mass/Vol] 181 mg/dL above high threshold 0 - 99 [facility] 3201 Work Phone: Comment on above: . NEAR BORD AGE WALDO RABLE OPTIMAL HIGH HIGH VERY HIGH 0-19 Y 0 - 109 --- 110-129 >/= 130 ---- 20-24 Y 0 - 119 --- 120-159 >/= 160 ---- >24 Y 0 - 99 100-129 130-159 160-189 >/=190. Cholesterol non HDL [Mass/Vol] 235 mg/dL [place] [address] Work Phone: Comment on above: AGE DESIRABLE BORDER LINE HIGH HIGH VERY HIGH 0-19 Y 0 - 119 120 - 144 >/= 145 >/= 160 20-24 Y 0 - 149 150 - 189 >/= 190 ---- >24 Y 30 MG/DL ABOVE LDL CHOLESTEROL GOAL. Cholesterol.total/Ch olesterol in HDL [Mass ratio] 5.8 {ratio} Abnormal [place] [address] Work Phone: Comment on above: REF VALUESDESIRABLE < 3.4HIGH RISK > 5.0 Triglyceride [Mass/Vol] 268 mg/dL above high threshold 0 - 149 [place] [address] Work Phone: Comment on above: . AGE DESIRABLE BORD CHIQUI HIGH HIGH VERY HIGH 0 D-90 D 19 - 174 ---- ---- ----91 D- 9 Y 0 - 74 75 - 99 >/= 100 ---- 10-19 Y 0 - 89 90 - 129 >/= 130 ---- 20-24 Y 0 - 114 115 - 149 >/= 150 ---- >24 Y 0 - 149 150 - 199 200- 499 >/= 500. Venipuncture immediately after or during the administration of Metamizole may lead to falsely low results. Testing should be performed immediately prior to Metamizole dosing. Lipid Panel 54 mg/dL above high threshold 0 - 40 [facility] 3201 Work Phone: No Panel Informationon 09-12 89 {mL/min/1.73m2} >90 [facility] 320 Work Phone: Comment on above: CALCULATIONS OF LUISA MATED GFR ARE PERFORMED USING THE 2020 CKD-EPI STUDY REFIT EQUATION WITHOUT THE RACE VARIABLE FOR THE IDMS-TRACEABLE CREATININE METHODS.https://jasn.asnjournals.org/content//ASN .0583148302 T4 - Free Thyroxine, Serumon 09-12-2021 Free T4 [Mass/Vol] 0.72 ng/dL See Below [facility] 3201 Work Phone: Comment on above: Reference Range: 0.6 1 - 1.12 Thyroxine Free testing is performed using different testing methodology at [facility] than at other [facility]. Direct result comparisons should only be made within the same method.. Biotin can cause falsely elevated free T4 results. Patients taking a Biotin dose of up to 10 mg/day should refrain from taking Biotin for 24 hours before sample collection. Patient taking a Biotin dose of >10 mg/day should consult with their physician or the laboratory before the blood draw. Vitamin D 25-Hydroxyon 09-12 25-hydroxyvitamin D3 [Mass/Vol] 46 ng/mL [facility] 3201 Work Phone: Comment on above: .DEFICIENCY: < 20 NG /MLINSUFFICIENCY: 20-29 NG/MLSUFFICIENCY: 30-100 NG/MLTHIS ASSAY ACCURATELY QUANTIFIES THE SUM OFVITAMIN D3, 25-HYDROXY AND VIT D2,25-HYDROXY. Tobacco Screening.on 022 Fall risk assessment a) No falls within the last year [facility] A2470 DO Work Phone: Tobacco use status [facility] b) No [facility] A2470 DO Work Phone: [phone] Blood Pressure Cuff Sizeon 0 08-06-2021 Fall risk assessment a) No falls within the last year [facility] A2470 DO Work Phone: [phone] [facility] c) Screening not indicated [facility] A2470 DO Work Phone: [phone] Blood Pressure Cuff Size Adult [facility] A2470 DO Work Phone: HCG,BETA-QUANTITATIVEon 04-0 HCG,BETA-QUANTITATIV E Canceled Normal [facility] [place] on above: Order Comment: TEST HCG,BETA-QUANTITATIVE WAS CANCELLED, 07/24/2021 07:49 TURBINE SUBASSEMBLER ERROR. URINE PREG NEEDED, OK TO CANCEL PER [address]. Result Comment: Low- level positive HCG results can be seen in early , in marcie- or post-menopausal females due to normal pituitary HCG production, or with analytic interference. Repeat testing in 48-72 hours can aid in assessing for as results should double in this time period. FSH measurement is recommended in marcie- or post-menopausal females as concurrent elevation of FSH can support pituitary production as the source of the HCG elevation. . Total HCG measurement is performed using the [employer] CAPPTURE Access Immunoassay which detects intact HCG and free beta HCG subunit. This test is not indicated for use as a tumor marker. HCG testing is performed using a different test methodology at [facility] than other [facility]. Direct result comparison should only be made within the same method. Performed By: #### H CGQU #### [address] [address] HCG,URINEon 07-24-2021 Beta HCG ( test) Ql (U) Negative Normal Negative [facility] Comment on above: Performed By: #### H CGU #### [address] [address] Operative Reports - [place] on 07-24-2021 Operative Reports - [place] SURGEON: Char Johnson MD PREOPERATIVE DIAGNOSIS: Soft tissue mass, anterior abdominal wall. POSTOPERATIVE DIAGNOSIS: Soft tissue mass, anterior abdominal wall, likely lipoma. PROCEDURE PERFORMED: Excision of anterior abdominal wall soft tissue mass, intermediate closure of wound. MANAGER SYSTEMS: SA. ANESTHESIA: General. INDICATIONS: The patient is a 50-year-old female, who presents with symptomatic soft tissue mass in the right upper quadrant of the anterior abdominal wall. Plan is to proceed with excision. Risks, benefits, and indications for this were reviewed. Differential diagnosis to include cyst, lipoma, hernia, and other issues were reviewed. The atypical but rare chance of malignancy is also mentioned. Risks, benefits, and indications were reviewed. All questions were answered and consent was obtained. PROCEDURE IN DETAIL: The patient was taken to the operating room. General anesthesia was obtained. Anterior abdominal wall was prepped and draped in a sterile fashion. Time-out procedures were followed. Antibiotics were given. DVT prophylaxis obtained using subcutaneous heparin and placed on external pneumatic compression stockings. The lesion in the right upper quadrant had been marked preoperatively. Transverse incision was carried out over this and dissection carried out, a lipomatous mass was encountered. It was excised from the soft tissues and removed from the field. Further palpation was carried out. There were no secondary masses. Dissection was carried down all the way to the anterior sheath. I did open the anterior sheath and visualized the rectus muscle. Further palpation was carried out. I did not appreciate any masses within the muscle. There were no hernias. Again, the anterior fascia was closed with interrupted 0 Vicryl. Subcutaneous tissue irrigated, made hemostatic, and closed with 3-0 and 4-0 Vicryl. The patient tolerated the procedure well. Char Johnson MD EST EST DICTATION NUMBER: [id number] INTERNAL JOB NUMBER: [id number] CC: JHOAN ROBERTO Electronic Signatures: Char Johnson) (Signed on 24-Jul-2021 11:35) Authored Unsigned, Draft (SYS GENERATED) (Entered on 24-Jul-2021 11:05) Entered Last Updated: 24-Jul-2021 11:35 by Char Johnson) [facility] [place]-24 Order Reconciliation Page 1 Discharge Reconciliation Document Reconciliation Type: Discharge requested on behalf of Char Johnson (Physician) done by Char Johnson) Discharge - Reconciliation: 24-Jul-2021 10:36 by: Char Johnson) Home Medications EnteredHOME MEDICATIONS AT DISCHARGE DateReconciliation Comment/ Additional Information amLODIPine 5 mg oral tablet 1 tab(s) orally once a day 27-Oct-2017 06:59 amLODIPine 5 mg oral tablet 1 tab(s) orally once a day 27-Oct-2017 06:59 amLODIPine 5 mg oral tablet is continued as amLODIPine 5 mg oral tablet cholecalciferol 25 mcg (1000 intl units) oral tablet 1 tab(s) orally once a day 16-Jul-2021 07:48 cholecalciferol 25 mcg (1000 intl units) oral tablet 1 tab(s) orally once a day 16-Jul-2021 07:48 cholecalciferol 25 mcg (1000 intl units) oral tablet is continued as cholecalciferol 25 mcg (1000 intl units) oral tablet fluticasone 50 mcg/inh inhalation powder 1 puff(s) inhaled 2 times a day 16-Jul-2021 07:47 fluticasone 50 mcg/inh inhalation powder 1 puff(s) inhaled 2 times a day 16-Jul-2021 07:47 fluticasone 50 mcg/inh inhalation powder is continued as fluticasone 50 mcg/inh inhalation powder ibuprofen 800 mg oral tablet 1 tab(s) orally 3 times a day 14-Nov-2018 17:36 ibuprofen 800 mg oral tablet 1 tab(s) orally 3 times a day 14-Nov-2018 17:36 ibuprofen 800 mg oral tablet is continued as ibuprofen 800 mg oral tablet Lexapro 20 mg oral tablet 1 tab(s) orally once a day 27-Oct-2017 06:59 Lexapro 20 mg oral tablet 1 tab(s) orally once a day 27-Oct-2017 06:59 Lexapro 20 mg oral tablet is continued as Lexapro 20 mg oral tablet losartan-hydrochlorothia zide 100 mg-25 mg oral tablet 1 tab(s) orally once a day 16-Jul-2021 07:47 losartan-hydrochlorothia zide 100 mg-25 mg oral tablet 1 tab(s) orally once a day 16-Jul-2021 07:47 losartan-hydrochlorothia zide 100 mg-25 mg oral tablet is continued as losartan-hydrochlorothia zide 100 mg-25 mg oral tablet omeprazole 40 mg oral delayed release capsule 1 cap(s) orally once a day 16-Jul-2021 07:48 omeprazole 40 mg oral delayed release capsule 1 cap(s) orally once a day 16-Jul-2021 07:48 omeprazole 40 mg oral delayed release capsule is continued as omeprazole 40 mg oral delayed release capsule SUMAtriptan 50 mg oral tablet 1 tab(s) orally once 16-Jul-2021 07:47 SUMAtriptan 50 mg oral tablet 1 tab(s) orally once 16-Jul-2021 07:47 SUMAtriptan 50 mg oral tablet is continued as SUMAtriptan 50 mg oral tablet ZyrTEC 10 mg oral tablet 1 tab(s) orally once a day 16-Jul-2021 07:48 ZyrTEC 10 mg oral tablet 1 tab(s) orally once a day 16-Jul-2021 07:48 ZyrTEC 10 mg oral tablet is continued as ZyrTEC 10 mg oral tablet Current OrdersDateHOME MEDICATIONS AT DISCHARGE DateReconciliation Comment/ Additional Information Albuterol 2.5 mg/ 3 mL Nebulizer Soln (PROVENTIL)DOSE = 3 mL Inhalation Once via Nebulizer, PRN Wheezing (PACU)Clinician Notes: Marcie-operative order ONLY 24-Jul-2021 08:25 Albuterol 2.5 mg/ 3 mL Nebulizer Soln is not required fentaNYL Injectable (SUBLIMAZE)DOSE = 50 microgram(s) IntraVenous Push Every 5 Minutes, PRN Pain - Mild (1-3)Clinician Notes: Marcie-operative order ONLYMax total of 200 micrograms regardless of dose. 24-Jul-2021 08:25 fentaNYL Injectable is not required hydrALAZINE (APRESOLINE) Injectable DOSE = 10 mg IntraVenous Push Every 30 Minutes, PRN for SPB>180 and HR<60.Clinician Notes: Marcie-operative order ONLY 24-Jul-2021 08:25 hydrALAZINE (APRESOLINE) Injectable is not required HYDROmorphone Injectable (DILAUDID)DOSE = 0.5 mg IntraVenous Push Every 5 Minutes, PRN Pain - Mod (4-6) (PACU)Clinician Notes: Marcie-operative order ONLYMax total of 4 mg regardless of dose. 24-Jul-2021 08:25 HYDROmorphone Injectable is not required HYDROmorphone Injectable (DILAUDID)DOSE = 1 mg IntraVenous Push Every 5 Minutes, PRN Pain - Severe (7-10) (PACU)Clinician Notes: Marcie-operative order ONLYMax total of 4 mg regardless of dose. 24-Jul-2021 08:25 HYDROmorphone Injectable is not required Metoprolol Injectable (LOPRESSOR)DOSE = 5 mg IntraVenous Push OnceClinician Notes: Marcie-operative order ONLY 24-Jul-2021 08:25 Metoprolol Injectable is not required Ondansetron Injectable (ZOFRAN)DOSE = 4 mg IntraVenous Push Once, PRN PONV, first lineClinician Notes: Marcie-operative order ONLY 24-Jul-2021 08:25 Ondansetron Injectable is not required oxyCODONE 5 mg - Acetaminophen 325 mg Tablet (PERCOCET)DOSE = 1 tablet(s) Oral Every 4 Hours, PRN most severe! painClinician Notes: Marcie-operative order ONLY 24-Jul-2021 08:25 oxyCODONE 5 mg - Acetaminophen 325 mg is not required Promethazine IV Piggy Back in Sodium Chloride 0.9% 50 mL (PHENERGAN)DOSE = 6.25 mg Once, PRN persistent PONV if first line ineffectiveRecommended Infusion Time: 15 minute(s)Clinician Notes: Marcie-operative order ONLY 24-Jul-2021 08:25 Promethazine IV Piggy Back is not required (more content not included)... [place] [facility] [place]ABOLIC PAN[place] 03-3 -2021 Anion gap [Moles/Vol] 13 mmol/L Normal 10 - 20 [facility] [place] above: Performed By: #### B MP #### [address] [address] Calcium [Mass/Vol] 9.2 mg/dL Normal 8.6 - 10.3 [facility] [place] Comment on above: Performed By: #### B MP #### [address] [address] Chloride [Moles/Vol] 99 mmol/L Normal 98 - 107 [facility] [place] on above: Performed By: #### B MP #### [address] [address] Creatinine [Mass/Vol] 0.80 mg/dL Normal 0.50 - 1.05 [facility] [place] on above: Performed By: #### B MP #### [address] [address] GFR/1.73 sq M.predicted among non-blacks MDRD (S/P/Bld) [Vol rate/Area] 89 mL/min/{1.73_m2} Normal >90 [facility] [place] on above: Result Comment: CALC ULATIONS OF ESTIMATED GFR ARE PERFORMED USING THE 2020 CKD-EPI STUDY REFIT EQUATION WITHOUT THE RACE VARIABLE FOR THE IDMS-TRACEABLE CREATININE METHODS. https://jasn.asnjournals.org/content//ASN.4695016 988 Performed By: #### B MP #### [address] [address] Glucose [Mass/Vol] 89 mg/dL Normal 74 - 99 [facility] [place] Comment on above: Performed By: #### B MP #### [address] [address] HCO3 (Bld) [Moles/Vol] 30 mmol/L Normal 21 - 32 [facility] [place] on above: Performed By: #### B MP #### [address] [address] Potassium [Moles/Vol] 3.6 mmol/L Normal 3.5 - 5.3 [facility] [place] on above: Performed By: #### B MP #### [address] [address] Sodium [Moles/Vol] 138 mmol/L Normal 136 - 145 [facility] [place] Comment on above: Performed By: #### B MP #### [address] [address] Urea nitrogen [Mass/Vol] 9 mg/dL Normal 6 - 23 [facility] Comment on above: Performed By: #### B MP #### [address] [address] CBCon 07-17-2021 Erythrocyte distribution width (RBC) [Ratio] 14.6 % High 11.5 - 14.5 [facility] Comment on above: Performed By: #### C BC #### [address] [address] Hematocrit (Bld) [Volume fraction] 38.2 % Normal 36.0 - 46.0 [facility] Comment on above: Performed By: #### C BC #### [address] [place] [address] Hemoglobin (Bld) [Mass/Vol] 12.2 g/dL Normal 12.0 - 16.0 [facility] Comment on above: Performed By: #### C BC #### [address] [address] MCHC (RBC) [Mass/Vol] 31.9 g/dL Low 32.0 - 36.0 [facility] Comment on above: Performed By: #### C BC #### [address] [address] MCV (RBC) [Entitic vol] 96 fL Normal 80 - 100 [facility] [place] on above: Performed By: #### C BC #### [address] [address] NUCLEATED RBC 0.0 /100 WBC Normal 0.0 - 0.0 [facility] Comment on above: Performed By: #### C BC #### [address] [address] Platelets (Bld) [#/Vol] 256 10*3/uL Normal 150 - 450 [facility] Comment on above: Performed By: #### C BC #### [address] [address] RBC 3.96 x10E12/L Low 4.00 - 5.20 [facility] Comment on above: Performed By: #### C BC #### [address] [address] WBC (Bld) [#/Vol] 5.0 10*3/uL Normal 4.4 - 11.3 [facility] [place] Comment on above: Performed By: #### C BC #### [address] [address] Patient Profile - Preop v3on 07-17-2021 Patient Profile - Preop v3 Patient Profile - Preop: Initial Info: Patient DemographicsName: EMELY CLEVELAND Date: 1970 Address: [facility] [address] , [place], [id number] Primary Phone [id number] How to be Addressedsusanna Spoken Language PreferredEnglish Source of Informationpatient Stated Reason for Admissionabd wall lesion-LIPOMA Primary Contact Name and NumberCHRISTI-DAUGHTER Limitations on Visitors/Phone Callsonly immediate family may visit Medications Brought to Hospitalno General Health: Weight in kg89.5 kilogram(s) Weight in ial623.3 pound(s) Weight Methodactual (measured) Scale Typechair Height in feet5 feet Height in inches6.97 inch(es) Height in cm170.1 centimeter(s) Height Methodstated BMI (kg/m2)30.932 square meter Patient or Family Member Reaction to Anesthesiano previous reaction Blood Avoidance/Restrictionsno ne Previous Transfusion Reactionno Health Mgmt: [facility]; respiratory Are You no Are You Currently Breastfeedingno Barriers to Managing Healthnone Relationship/Environ: Lives Withalone Living Arrangementshouse Resource/Environmental Concernsnone Anticipated Transition [facility] Anticipated at Transitionnone Tobacco Use: Tobacco Useyes Tobacco Typecigarettes Last Tobacco [id number] Number of yrs25 Tobacco Commentquit in 2014 Pre-op Checklist: Arrival [id number] Arrival Time07:15 Procedure TypeEXC ABD WALL LESION NPOyes Last Food [id number] 22:30 Last Clear Fluid [id number] 05:00 ID Band On Patientpatient ID (name) Consent Signedpending H&P Completeyes Anesthesia Assessment Completedpending EKG Performedyes Chest X-Ray Performednot ordered Preop Antibioticsnot ordered COVID 19 Results in Last 7 daysNEG HCG Urine TestN/A Chlorhexadine Bath Givencompleted at home Nasal Antiseptic Appliednot applicable Soap and Water Bath the Night Before Surgerynot applicable Hair Washed with Shampooyes Bowel Prepno OtherNO ORDERS AT THIS TIME Surgical Site Infection Preventionyes Pain Scales and Managementyes Additional Information: Information Review: Allergies, Home Meds and Significant Events have been Reviewed and Verified with Patient/Familyyes Allergy, Intolerance, Adverse Event: Allergies: No Known Allergies: Active Electronic Signatures: Danelle Joe (CN) (Signed 24-Jul-2021 08:05) Authored: Initial Info, Health Mgmt, Tobacco Use, Pre-op Checklist, Additional Information Navya Cross (STAFF N) (Signed 17-Jul-2021 08:54) Authored: Initial Info, General Health, Relationship/Environ, Tobacco Use, Additional Information Last Updated: 24-Jul-2021 08:05 by Danelle Joe (GILBERTO) Normal [facility] Tobacco Screening.on 022 Fall risk assessment a) No falls within the last year -[facility] A2470 DO Work Phone: Tobacco use status CPHS b) No [facility] A2470 DO Work Phone: [facility] Adult depression screening assessment Yes -[place] [facility] 3201 Work Phone: Fall risk assessment a) No falls within the last year -[place] [facility] 3201 Work Phone: Tobacco use status CP b) No -[place] [facility] 3201 Work Phone: Activated Partial Thrombopla stin Timeon 05-27-2021 aPTT Coag (PPP) [Time] 33 s 26 - 39 [facility] 3201 Work Phone: Comment on above: Note new reference sumit garcia as of 03/19/2021 at 10:00am. Laboratory - Chemistry and C hemistry - challengeon 05-27-2021 Albumin BCP dye [Mass/Vol] 4.2 g/dL 3.4 - 5.0 [facility] 3201 Work Phone: ALP [Catalytic activity/Vol] 53 U/L 33 - 110 [facility] 3201 Work Phone: ALT With P-5'-P [Catalytic activity/Vol] 78 U/L above high threshold 7 - 45 [place] [address] Work Phone: Comment on above: Patients treated wit h Sulfasalazine may generate falsely decreased results for ALT. Anion gap [Moles/Vol] 16 mmol/L 10 - 20 [place] [address] Work Phone: AST With P-5'-P [Catalytic activity/Vol] 146 U/L above high threshold 9 - 39 [place] [address] Work Phone: Bilirubin [Mass/Vol] 0.6 mg/dL 0.0 - 1.2 [place] [address] Work Phone: Calcium [Mass/Vol] 8.8 mg/dL 8.6 - 10.3 [place] [address] Work Phone: Chloride [Moles/Vol] 93 mmol/L below low threshold 98 - 107 [place] [address] Work Phone: CO2 [Moles/Vol] 29 mmol/L 21 - 32 [place] [address] Work Phone: Creatinine [Mass/Vol] 0.69 mg/dL See Below [place] [address] Work Phone: Comment on above: Reference Range: 0.5 0 - 1.05 Glucose [Mass/Vol] 100 mg/dL above high threshold 74 - 99 [place] [address] Work Phone: Potassium [Moles/Vol] 4.0 mmol/L 3.5 - 5.3 [place] [address] Work Phone: Protein [Mass/Vol] 7.4 g/dL 6.4 - 8.2 [place] [address] Work Phone: Sodium [Moles/Vol] 134 mmol/L below low threshold 136 - 145 [place] [address] Work Phone: Urea nitrogen [Mass/Vol] 8 mg/dL 6 - 23 [place] [address] Work Phone: Laboratory - Coagulationon 0 05-27-2021 INR Coag (PPP) [Relative time] 0.9 {INR} 0.9 - 1.1 [place] [address] Work Phone: PT Coag (PPP) [Time] 10.8 s 9.8 - 13.4 [place] [address] Work Phone: Comment on above: Note new reference sumit garcia as of 03/19/2021 at 10:00am. Laboratory - Hematology and Cell countson 05-27-2021 Erythrocyte distribution width (RBC) [Ratio] 15.6 % above high threshold See Below [place] [address] Work Phone: Comment on above: Reference Range: 11. 5 - 14.5 Hematocrit (Bld) [Volume fraction] 47.9 % above high threshold See Below [place] [address] Work Phone: Comment on above: Reference Range: 36. 0 - 46.0 Hemoglobin (Bld) [Mass/Vol] 15.5 g/dL See Below [place] [address] Work Phone: Comment on above: Reference Range: 12. 0 - 16.0 MCHC (RBC) [Mass/Vol] 32.4 g/dL See Below [place] [address] Work Phone: Comment on above: Reference Range: 32. 0 - 36.0 MCV (RBC) [Entitic vol] 93 fL 80 - 100 [place] [address] Work Phone: Platelets (Bld) [#/Vol] 197 10*3/uL 150 - 450 [facility] 3201 Work Phone: RBC (Bld) [#/Vol] 5.13 {x10E12/L} See Below [facility] 3201 Work Phone: Comment on above: Reference Range: 4.0 0 - 5.20 WBC (Bld) [#/Vol] 6.6 10*3/uL 4.4 - 11.3 [facility] 3201 Work Phone: No Panel Informationon 05-27 >90 >90 [facility] 3201 Work Phone: Comment on above: CALCULATIONS OF LUISA MATED GFR ARE PERFORMED USING THE 2020 CKD-EPI STUDY REFIT EQUATION WITHOUT THE RACE VARIABLE FOR THE IDMS-TRACEABLE CREATININE METHODS.https://jasn.asnjournals.org/content//ASN .[id number] Radiologyon 05-24-2021 US Abdomen Normal [facility] 3201 Work Phone: Tobacco Screening.on 022 Adult depression screening assessment Positive [facility] 3201 Work Phone: [phone] Fall risk assessment a) No falls within the last year [facility] 3201 Work Phone: [phone] Tobacco use status CPHS b) No [facility] 3201 Work Phone: [phone] Tobacco Screening.on 021 Fall risk assessment a) No falls within the last year [facility] 3201 Work Phone: [phone] Tobacco use status CPHS b) No [facility] 3201 Work Phone: Hemoglobin A1Con 01-03-2021 Glucose [Mass/Vol] 123 mg/dL [facility] 3201 Work Phone: HbA1c (Bld) [Mass fraction] 5.9 % Abnormal [facility] 3201 Work Phone: Comment on above: Diagnosis of Diabete s-Adults Non-Diabetic: < or = 5.6% Increased risk for developing diabetes: 5.7-6.4% Diagnostic of diabetes: > or = 6.5%. Monitoring of Diabetes Age (y) Therapeutic Goal (%) Adults: >18 <7.0 Pediatrics: 13-18 <7.5 7-12 <8.0 0- 6 7.5-8.5 [place] [employer]. Diabetes Care 33(S1), Apr 2009. Laboratory - Chemistry and C hemistry - challengeon 01-03-2021 TSH Qn 2.70 m[IU]/L See Below [facility] 3201 Work Phone: Comment on above: Reference Range: 0.4 4 - 3.98 TSH testing is performed using different testing methodology at [facility] than at other [facility]. Direct result comparisons should only be made within the same method. Vital Signs Date Time Vital Sign Value Performing Clinician Facility 10-05-2023 15:47-0400 Body height 170.2 cm Kelly Ames APRN.CNP Work Phone: [place] 10-05-2023 15:47-0400 Body mass index (BMI) [Ratio] 26.59 kg/m2 Kelly Ames APRN.CNP Work Phone: [place] 10-05-2023 15:47-0400 Body weight 77 kg Kelly Ames APRN.CNP Work Phone: [place] 10-05-2023 15:47-0400 Diastolic blood pressure 76 mm[Hg] Kelly Ames APRN.DRY CURE WORKER Work Phone: [place] 10-05-2023 15:47-0400 Heart rate 102 /min Kelly Ames APRN.CNP Work Phone: [place] 10-05-2023 15:47-0400 Systolic blood pressure 104 mm[Hg] Kelly Ames APRN.CNP Work Phone: [place] 09-25-2023 09:49-0400 Diastolic blood pressure 70 mm[Hg] Jhoan Roberto MD Work Phone: [facility] 09-25-2023 09:49-0400 Heart rate 64 /min Jhoan Roberto MD Work Phone: [facility] 09-25-2023 09:49-0400 Systolic blood pressure 90 mm[Hg] Jhoan Roberto MD Work Phone: [facility] 09-25-2023 09:05-0400 Body height 170.2 cm Jhoan Roberto MD Work Phone: [facility] 09-25-2023 09:05-0400 Body mass index (BMI) [Ratio] 26.94 kg/m2 Jhoan Roberto MD Work Phone: [facility] 09-25-2023 09:05-0400 Body temperature 97 [degF] Jhoan Roberto MD Work Phone: [facility] 09-25-2023 09:05-0400 Body weight 78.02 kg Jhoan Roberto MD Work Phone: [facility] 09-25-2023 09:05-0400 SaO2% (BldA) [Mass fraction] 94 % Jhoan Roberto MD Work Phone: [facility] 02-23-2023 12:56-0500 Body temperature 97.2 [degF] [address] 02-23-2023 12:56-0500 Diastolic blood pressure 75 mm[Hg] [address] 02-23-2023 12:56-0500 Heart rate 76 /min [address] 02-23-2023 12:56-0500 Respiratory rate 18 /min [address] 02-23-2023 12:56-0500 SaO2% (BldA) [Mass fraction] 97 % [address] 02-23-2023 12:56-0500 Systolic blood pressure 131 mm[Hg] [address] 02-23-2023 09:39-0500 Body height 170.[address] 02-23-2023 09:39-0500 Body mass index (BMI) [Ratio] 29.42 kg/m2 [address] 02-23-2023 09:39-0500 Body weight 85.[address] 12-04-2022 15:57-0400 Body height 170.18 cm Jhoan Roberto Work Phone: [facility] 450 Work Phone: 12-04-2022 15:57-0400 Body mass index (BMI) [Ratio] 30.09 kg/m2 Jhoan Roberto Work Phone: [facility] 450 Work Phone: 12-04-2022 15:57-0400 Body surface area Derived from formula 1.99 m2 Jhoan Roberto Work Phone: [facility] 450 Work Phone: 12-04-2022 15:57-0400 Body temperature 97.4 [degF] Jhoan Roberto Work Phone: [facility] 450 Work Phone: 12-04-2022 15:57-0400 Body weight 87.15 kg Jhoan Roberto Work Phone: [facility] 450 Work Phone: 12-04-2022 15:57-0400 Diastolic blood pressure 94 mm[Hg] Jhoan Roberto Work Phone: [facility] 450 Work Phone: 12-04-2022 15:57-0400 Heart rate 104 /min Jhoan Roberto Work Phone: [facility] 450 Work Phone: 12-04-2022 15:57-0400 Respiratory rate 18 /min Jhona Roberto Work Phone: [facility] 450 Work Phone: 12-04-2022 15:57-0400 SaO2% (BldA) [Mass fraction] 97 % Jhoan Roberto Work Phone: [facility] 450 Work Phone: 12-04-2022 15:57-0400 Systolic blood pressure 127 mm[Hg] Jhoan Roberto Work Phone: [facility] 450 Work Phone: 10-17-2022 14:13-0400 Body mass index (BMI) [Ratio] 30.48 kg/m2 Jhoan Roberto MD Work Phone: [facility] 10-17-2022 14:13-0400 Body temperature 97.7 [degF] Jhoan Roberto MD Work Phone: [facility] 10-17-2022 14:13-0400 Body weight 88.27 kg Jhoan Roberto MD Work Phone: [facility] 10-17-2022 14:13-0400 Diastolic blood pressure 86 mm[Hg] Jhoan Roberto MD Work Phone: [facility] 10-17-2022 14:13-0400 Heart rate 98 /min Jhoan Roberto MD Work Phone: [facility] 10-17-2022 14:13-0400 Respiratory rate 16 /min Jhoan Roberto MD Work Phone: [facility] 10-17-2022 14:13-0400 SaO2% (BldA) [Mass fraction] 99 % Jhoan Roberto MD Work Phone: [facility] 10-17-2022 14:13-0400 Systolic blood pressure 126 mm[Hg] Jhoan Roberto MD Work Phone: [facility] 07-07-2022 10:42-0400 Body height 171.5 cm Kelly Ames APRN.DRY CURE WORKER Work Phone: [place] 07-07-2022 10:42-0400 Body weight 88 kg Kelly Ames APRN.DRY CURE WORKER Work Phone: [place] 07-07-2022 10:42-0400 Diastolic blood pressure 73 mm[Hg] Kelly Ames APRN.DRY CURE WORKER Work Phone: [place] 07-07-2022 10:42-0400 Heart rate 97 /min Kelly Ames APRN.DRY CURE WORKER Work Phone: [place] 07-07-2022 10:42-0400 Systolic blood pressure 104 mm[Hg] Kelly Ames APRN.DRY CURE WORKER Work Phone: [place] 03-28-2022 11:04-0500 Body height 170.18 cm Jhoan Roberto Work Phone: [facility] 3201 Work Phone: 03-28-2022 11:04-0500 Body mass index (BMI) [Ratio] 31.09 kg/m2 Jhoan Roberto Work Phone: [facility] 3201 Work Phone: 03-28-2022 11:04-0500 Body surface area Derived from formula 2.02 m2 Jhoan Roberto Work Phone: [facility] 3201 Work Phone: 03-28-2022 11:04-0500 Body temperature 97.6 [degF] Jhoan Roberto Work Phone: [facility] 3201 Work Phone: 03-28-2022 11:04-0500 Body weight 90.04 kg Jhoan Roberto [facility] Work Phone: 03-28-2022 11:04-0500 Diastolic blood pressure 79 mm[Hg] Jhoan Roberto Work Phone: [facility] Work Phone: 03-28-2022 11:04-0500 Heart rate 104 /min Jhoan Roberto [facility] Work Phone: 03-28-2022 11:04-0500 Respiratory rate 18 /min Jhoan Roberto [facility] Work Phone: 03-28-2022 11:04-0500 SaO2% (BldA) [Mass fraction] 96 % Jhoan Roberto [facility] Work Phone: 03-28-2022 11:04-0500 Systolic blood pressure 123 mm[Hg] Jhoan Roberto [facility] Work Phone: 01-01-2022 08:26-0400 Diastolic blood pressure 72 mm[Hg] Jhoan Roberto [facility] Work Phone: 01-01-2022 08:26-0400 Systolic blood pressure 118 mm[Hg] Jhoan Roberto [facility] Work Phone: 01-01-2022 07:44-0400 Body height 170.18 cm Jhoan Roberto [facility] Work Phone: 01-01-2022 07:44-0400 Body mass index (BMI) [Ratio] 31.48 kg/m2 Jhoan Roberto [facility] Work Phone: 01-01-2022 07:44-0400 Body surface area Derived from formula 2.03 m2 Jhoan Roberto [facility] Work Phone: 01-01-2022 07:44-0400 Body temperature 98.5 [degF] Jhoan Roberto [facility] Work Phone: 01-01-2022 07:44-0400 Body weight 91.17 kg Jhoan Roberto [facility] Work Phone: 01-01-2022 07:44-0400 Diastolic blood pressure 80 mm[Hg] Jhoan Roberto [facility] Work Phone: 01-01-2022 07:44-0400 Heart rate 96 /min Jhoan Roberto [facility] Work Phone: 01-01-2022 07:44-0400 Respiratory rate 18 /min Jhoan Roberto [facility] Work Phone: 01-01-2022 07:44-0400 SaO2% (BldA) [Mass fraction] 94 % Jhoan Roberto [facility] Work Phone: 01-01-2022 07:44-0400 Systolic blood pressure 110 mm[Hg] Jhoan Roberto [facility] Work Phone: 09-18-2021 14:59-0400 Body height 170.18 cm Jhoan Roberto [facility] Work Phone: 09-18-2021 14:59-0400 Body mass index (BMI) [Ratio] 31.85 kg/m2 Jhoan Roberto [facility] Work Phone: 09-18-2021 14:59-0400 Body surface area Derived from formula 2.04 m2 Jhoan Roberto [facility] Work Phone: 09-18-2021 14:59-0400 Body temperature 98.1 [degF] Jhoan Roberto [facility] Work Phone: 09-18-2021 14:59-0400 Body weight 92.25 kg Jhoan Roberto [facility] Work Phone: 09-18-2021 14:59-0400 Diastolic blood pressure 77 mm[Hg] Jhoan Roberto [facility] Work Phone: 09-18-2021 14:59-0400 Heart rate 100 /min Jhoan Roberto [facility] Work Phone: 09-18-2021 14:59-0400 Respiratory rate 16 /min Jhoan Roberto [facility] Work Phone: 09-18-2021 14:59-0400 SaO2% (BldA) [Mass fraction] 96 % Jhoan Roberto Work Phone: [facility] 3201 Work Phone: 09-18-2021 14:59-0400 Systolic blood pressure 115 mm[Hg] Jhoan Roberto Work Phone: [facility] 3201 Work Phone: 09-02-2021 08:04-0400 Body mass index (BMI) [Ratio] 32 kg/m2 Jhoan Roberto Work Phone: [facility] A2470 DO Work Phone: 09-02-2021 08:04-0400 Body surface area Derived from formula 2.04 m2 Jhoan Roberto Work Phone: [facility] A2470 DO Work Phone: 09-02-2021 08:04-0400 Body weight 92.68 kg Jhoan Roberto Work Phone: [facility] A2470 DO Work Phone: 09-02-2021 08:04-0400 Diastolic blood pressure 93 mm[Hg] Jhoan Roberto Work Phone: [facility] A2470 DO Work Phone: 09-02-2021 08:04-0400 Heart rate 110 /min Jhoan Roberto Work Phone: [facility] A2470 DO Work Phone: 09-02-2021 08:04-0400 Respiratory rate 16 /min Jhoan Roberto Work Phone: [facility] A2470 DO Work Phone: 09-02-2021 08:04-0400 SaO2% (BldA) [Mass fraction] 96 % Jhoan Roberto Work Phone: [facility] A2470 DO Work Phone: 09-02-2021 08:04-0400 Systolic blood pressure 135 mm[Hg] Jhoan Roberto Work Phone: [facility] A2470 DO Work Phone: 09-02-2021 08:04-0400 0 1 Jhoan Roberto Work Phone: [facility] A2470 DO Work Phone: Comment on above: [employer] 08-06-2021 13:59-0400 Body height 170.18 cm Jhoan Roberto Work Phone: [facility] A2470 DO Work Phone: 08-06-2021 13:59-0400 Body mass index (BMI) [Ratio] 31.72 kg/m2 Jhoan Roberto Work Phone: [facility] A2470 DO Work Phone: 08-06-2021 13:59-0400 Body surface area Derived from formula 2.03 m2 Jhoan Roberto Work Phone: [facility] A2470 DO Work Phone: 08-06-2021 13:59-0400 Body temperature 95.1 [degF] Jhoan Roberto Work Phone: [facility] A2470 DO Work Phone: 08-06-2021 13:59-0400 Body weight 91.85 kg Jhoan Roberto Work Phone: [facility] A2470 DO Work Phone: 08-06-2021 13:59-0400 Diastolic blood pressure 73 mm[Hg] Jhoan Roberto Work Phone: [facility] A2470 DO Work Phone: 08-06-2021 13:59-0400 Heart rate 105 /min Jhoan Roberto Work Phone: [facility] A2470 DO Work Phone: 08-06-2021 13:59-0400 Respiratory rate 18 /min Jhoan Roberto Work Phone: [facility] A2470 DO Work Phone: 08-06-2021 13:59-0400 Systolic blood pressure 105 mm[Hg] Jhoan Roberto Work Phone: [facility] A2470 DO Work Phone: 06-13-2021 11:41-0500 Body mass index (BMI) [Ratio] 31.64 kg/m2 Jhoan Rboerto Work Phone: [facility] A2470 DO Work Phone: 06-13-2021 11:41-0500 Body surface area Derived from formula 2.03 m2 Jhoan Roberto Work Phone: [facility] A2470 DO Work Phone: 06-13-2021 11:41-0500 Body weight 91.63 kg Jhoan Roberto Work Phone: [facility] A2470 DO Work Phone: 06-13-2021 11:41-0500 Diastolic blood pressure 87 mm[Hg] Jhoan Roberto Work Phone: [facility] A2470 DO Work Phone: 06-13-2021 11:41-0500 Heart rate 112 /min Jhoan Roberto Work Phone: [facility] A2470 DO Work Phone: 06-13-2021 11:41-0500 SaO2% (BldA) [Mass fraction] 98 % Jhoan Roberto Work Phone: [facility] [id number] DO Work Phone: 06-13-2021 11:41-0500 Systolic blood pressure 121 mm[Hg] Jhoan Roberto Work Phone: [facility] [id number] DO Work Phone: 06-13-2021 11:41-0500 0 1 Jhoan Roberto Work Phone: [facility] [id number] DO Work Phone: Comment on above: [employer] 05-31-2021 09:37-0500 Diastolic blood pressure 88 mm[Hg] Jhoan Roberto Work Phone: [facility]Internal Medicine 3201 Work Phone: 05-31-2021 09:37-0500 Systolic blood pressure 136 mm[Hg] Jhoan Roberto Work Phone: [facility]Internal Medicine 3201 Work Phone: 05-28-2021 15:51-0500 Body mass index (BMI) [Ratio] 32.11 kg/m2 Jhoan Roberto Work Phone[facility] Work Phone: 05-28-2021 15:51-0500 Body surface area Derived from formula 2.04 m2 Jhoan Roberto Work Phone: [facility] Medicine 3201 Work Phone: 05-28-2021 15:51-0500 Body temperature 97.3 [degF] Jhoan Roberto Work Phone: [facility]-Internal Medicine 3201 Work Phone: 05-28-2021 15:51-0500 Body weight 92.99 kg [facility]hoan [facility] Work Phone: 05-28-2021 15:51-0500 Diastolic blood pressure 100 mm[Hg] Jhoan Ch Felisa [facility] Work Phone: 05-28-2021 15:51-0500 Heart rate 118 /min Jhoan Roberto [facility] Work Phone: 05-28-2021 15:51-0500 SaO2% (BldA) [Mass fraction] 97 % Jhoan Roberto [facility] Work Phone: 05-28-2021 15:51-0500 Systolic blood pressure 150 mm[Hg] Jhoan Roberto [facility] Work Phone: 05-11-2021 04:38-0500 Diastolic blood pressure 88 mm[Hg] Jhoan Roberto [facility] 3201 Work Phone: 05-11-2021 04:38-0500 Systolic blood pressure 138 mm[Hg] Jhoan Roberto [facility] Work Phone: 05-09-2021 16:17-0500 Body mass index (BMI) [Ratio] 31.97 kg/m2 Jhoan Roberto [facility] 3201 Work Phone: 05-09-2021 16:17-0500 Body surface area Derived from formula 2.04 m2 Jhoan Roberto Work Phone: [facility] 3201 Work Phone: 05-09-2021 16:17-0500 Body temperature 97.7 [degF] Jhoan Roberto [facility] Work Phone: 05-09-2021 16:17-0500 Body weight 92.59 kg Jhoan Roberto [facility] Work Phone: 05-09-2021 16:17-0500 Diastolic blood pressure 98 mm[Hg] Jhoan Roberto [facility] Work Phone: 05-09-2021 16:17-0500 Heart rate 105 /min Jhoan Roberto [facility] Work Phone: 05-09-2021 16:17-0500 Respiratory rate 16 /min Jhoan Roberto [facility] Work Phone: 05-09-2021 16:17-0500 SaO2% (BldA) [Mass fraction] 96 % Jhoan Roberto [facility] Work Phone: 05-09-2021 16:17-0500 Systolic blood pressure 144 mm[Hg] Jhoan Roberto [facility] Work Phone: 01-10-2021 09:35-0400 Diastolic blood pressure 74 mm[Hg] Jhoan Roberto [facility] Work Phone: 01-10-2021 09:35-0400 Systolic blood pressure 134 mm[Hg] Jhoan Roberto [facility] Work Phone: 01-07-2021 10:29-0400 Body height 170.18 cm Jhoan Roberto [facility] Work Phone: 01-07-2021 10:29-0400 Body mass index (BMI) [Ratio] 31.86 kg/m2 Jhoan Roberto [facility] 3201 Work Phone: 01-07-2021 10:290400 Body surface area Derived from formula 2.04 m2 Jhoan Roberto [facility] Work Phone: 01-07-2021 10:29-0400 Body temperature 208.4 [degF] Jhoan Roberto [facility] Work Phone: 01-07-2021 10:29-0400 Body weight 92.26 kg Jhoan Roberto [facility] 3201 Work Phone: 01-07-2021 10:29-0400 Diastolic blood pressure 98 mm[Hg] Jhoan Roberto [facility] Work Phone: 01-07-2021 10:29-0400 Heart rate 112 /min Jhoan Roberto [facility] Work Phone: 01-07-2021 10:29-0400 SaO2% (BldA) [Mass fraction] 95 % Jhoan Roberto [facility]201 Work Phone: 01-07-2021 10:29-0400 Systolic blood pressure 148 mm[Hg] Jhoan Roberto Work Phone: [facility] Medicine 3201 Work Phone: 10-17-2019 11:04-0400 BMI (Body Mass Index) 33.22 kg/m2 [facility]an [facility] Work Phone: 10-17-2019 11:04-0400 Body Temperature 99.4 [degF] [facility] Work Phone: 10-17-2019 11:04-0400 Body weight 96.22 kg [facility]hoan [facility] Work Phone: 10-17-2019 11:04-0400 BP Diastolic 80 mm[Hg] [facility]hoan Felisa [facility] Work Phone: 10-17-2019 11:04-0400 BP Systolic 130 mm[Hg] Jhoan Contimilo [facility]-Internal Medicine Work Phone: 10-17-2019 11:04-0400 BSA (Body Surface Area) 2.07 m2 [facility]hoan [facility]ilo [facility] Work Phone: 10-17-2019 11:04-0400 Height 170.18 cm [facility] Work Phone: 10-17-2019 11:04-0400 Pulse (Heart Rate) 89 /min [facility]hoan [facility]ilo [facility] Work Phone: 10-17-2019 11:04-0400 Respiratory Rate 15 /min [facility]hoan [facility]ilo [facility] Work Phone: 1970 00:00-0500 >na< Huong Landis Dept. of Dermatology Encounters Encounter Date Encounter Type Care Provider Facility Start: 11-23-2023 End: 11-23-2023 Emergency department patient visit DE KARYNA MERIDA [facility] Start: 11-04-2023 ambulatory [facility] Start: 10-29-2023 End: 10-29-2023 ambulatory [facility] Start: 10-26-2023 End: 10-26-2023 ambulatory NEGAR MICHELLE Facility:[facility] Start: 10-23-2023 End: 10-23-2023 [facility] Negar ELIAS Work Phone: Psychiatry Comment on above: Alcohol use disorder , severe, dependence (HCC) (Primary Dx) Start: 10-16-2023 End: 10-16-2023 Emergency department patient visit [facility] Facility:[facility] Start: 10-15-2023 End: 10-20-2023 Evaluation and management of inpatient TOD WONG Facility:[facility] Start: 10-15-2023 Admission to [facility] Start: 10-15-2023 ambulatory [facility] Comment on above: Detoxification Start: 10-15-2023 End: 10-15-2023 Emergency department patient visit EVETTE SANTOS MD Facility:[facility] Start: 10-05-2023 End: 10-05-2023 ambulatory [facility] Facility:[facility] Start: 10-05-2023 End: 10-05-2023 Patient encounter procedure Kelly Ames APRN.CNP Work Phone: Obstetrics/Gynecology Comment on above: Encounter for gyneco logical examination (general) (routine) without abnormal findings (Primary Dx); Encounter for screening mammogram for malignant neoplasm of breast Start: 10-05-2023 End: 10-05-2023 Patient encounter status Kelly Ames APRN.CNP Work Phone: [place] Work Phone: Start: 09-30-2023 End: 09-30-2023 Office outpatient visit 15 minutes Huong Landis MD Work Phone: [facility] Comment on above: Melanocytic nevus, u nspecified location (Primary Dx); Hemangioma of skin; Lentigo; Seborrheic keratosis; Encounter for screening for malignant neoplasm of skin Start: 09-30-2023 End: 09-30-2023 ambulatory HUONG E [facility] Start: 09-26-2023 End: 09-26-2023 Subsequent hospital visit by physician Geraldo [id number] Ultrasound [facility] Comment on above: Gall bladder polyp Start: 09-26-2023 End: 09-26-2023 ambulatory [facility] Start: 09-25-2023 End: 09-25-2023 ambulatory [facility] Start: 09-25-2023 End: 09-25-2023 Office outpatient visit 40 minutes Jhoan Roberto MD Work Phone: [facility] Internal Medicine Comment on above: Essential hypertensi on with goal blood pressure less than 130/85 (Primary Dx); Alcoholism (Multi); Low vitamin D level; Prediabetes; Elevated LFTs; Abdominal pain, RUQ (right upper quadrant); Reactive depression; Memory changes; Dyspepsia; Spasm of muscle of lower back; Hyponatremia; Neutropenia, unspecified type (CMS-HCC); Thrombocytopenia (CMS-HCC) Start: 09-25-2023 End: 09-25-2023 ambulatory [facility] Start: 05-24-2023 Documentation procedure Mammog [place] Coordinator [facility] Start: 05-24-2023 Letter encounter Mammography Coordinator [facility] Ancillary Area Not Listed Start: 05-22-2023 ambulatory KELLY AMES Faci lity:[facility] Start: 05-22-2023 End: 05-22-2023 Subsequent hospital visit by physician Screen Mammo [place] Jann Dickey 2 Work Phone: Mammography Comment on above: Encounter for screen ing mammogram for malignant neoplasm of breast [Z12.31] Start: 05-13-2023 End: 05-14-2023 ambulatory [facility] Start: 05-13-2023 End: 05-13-2023 Subsequent hospital visit by physician Beryl Alejandra X-Ray 3 [facility] Comment on above: Closed nondisplaced fracture of base of fifth metacarpal bone of left hand, initial encounter Start: 04-22-2023 End: 04-23-2023 ambulatory JAROD GHOSH [facility] Start: 04-09-2023 End: 04-10-2023 ambulatory [facility] Start: 04-09-2023 End: 04-09-2023 Office outpatient new 30 minutes Jarod Ghosh MD Work Phone: [facility] Comment on above: Closed nondisplaced fracture of base of fifth metacarpal bone of left hand, initial encounter Start: 04-06-2023 End: 04-07-2023 ambulatory MICK [facility] Start: 03-23-2023 End: 03-25-2023 Patient encounter procedure Danielgordo Holguin LICHI Work Phone: [facility] Comment on above: Alcoholism (CMS/HCC) (Primary Dx) Start: 03-18-2023 End: 03-18-2023 ambulatory [facility] Start: 03-14-2023 End: 03-14-2023 ambulatory [facility] Start: 03-06-2023 End: 03-06-2023 Office outpatient visit 15 minutes Jhoan Roberto MD Work Phone: [facility] Internal Medicine Comment on above: Dyslipidemia, goal L DL below 100 (Primary Dx); Migraine with aura and without status migrainosus, not intractable; Essential hypertension with goal blood pressure less than 130/85; Fatty liver; Prediabetes Start: 03-06-2023 End: 03-06-2023 ambulatory [facility] Start: 03-04-2023 End: 03-04-2023 Office outpatient visit 25 minutes Huong Landis MD Work Phone: [facility] Comment on above: Acne vulgaris (Prima ry Dx); Seborrheic keratosis Start: 03-04-2023 End: 03-04-2023 ambulatory HUONG LANDIS [facility] Start: 02-23-2023 End: 02-23-2023 Subsequent hospital visit by physician Milton Farrell MD Work Phone: [facility] Comment on above: Encounter for screen ing for malignant neoplasm of colon; Benign neoplasm of colon, unspecified part of colon Start: 02-23-2023 End: 02-23-2023 ambulatory MILTON FARRELL [facility] Start: 01-23-2023 End: 01-23-2023 ambulatory KENZIE ELIZONDO [facility] Start: 01-23-2023 End: 01-23-2023 Subsequent hospital visit by physician Geraldo [id number] [facility] 1 Replaced by [facility] Douglasjorge Comment on above: Other polyneuropathy Start: 12-25-2022 Chart Update Jhoan Roberto Work Phone: [facility] Work Phone: Start: 12-24-[address] Jhoan Silva acility:[id number] Start: 12-04-2022 ambulatory MD CHAR JOHNSON Facility:[id number] Start: 12-04-2022 Office outpatient vi sit 15 minutes Jhoan Roberto Work Phone: [facility] Work Phone: Start: 11-26-2022 ambulatory Alfredo ROBERTO Facility:[id number] Start: 11-26-2022 Patient encounter procedure Jhoan Roberto Work Phone: [facility] Work Phone: Start: 11-20-2022 NPV, Provider: Char Johnson, Status: Pen, Time: 3:30 PM Jhoan Roberto Work Phone: [facility] Work Phone: Start: 11-19-2022 ambulatory Alfredo ROBERTO Facility:[id number] Start: 11-19-2022 Patient encounter procedure Jhoan Roberto Work Phone: [facility] Work Phone: Start: 11-19-2022 [email or web address], Provider : Rocael Alicea, Status: Pen, Time: 7:45 AM Jhoan Roberto Work Phone: [facility] 101 Work Phone: Start: 11-17-2022 Office outpatient ne w 45 minutes Jhoan Roberto Work Phone: [facility] Work Phone: Start: 11-17-2022 ambulatory UNKNOWN UNKNOWN Facilit y:[id number] Start: 11-05-2022 Patient encounter procedure Jhoan Roberto Work Phone: [facility] Work Phone: Start: 11-05-2022 ambulatory M.Kelsea ROBERTO Facility:[id number] Start: 10-17-2022 End: 10-17-2022 Office outpatient visit 25 minutes Jhoan Roberto MD Work Phone: [facility] Internal Medicine Comment on above: Essential hypertensi on with goal blood pressure less than 130/85 (Primary Dx); Dyslipidemia, goal LDL below 100; Abdominal pain, RUQ (right upper quadrant); Fatty liver; Adenomatous polyp of colon, unspecified part of colon; Prediabetes; Abdominal wall pain in right upper quadrant Start: 10-15-2022 ambulatory M.DLola ROBERTO Facility:[id number] Start: 10-15-2022 Patient encounter procedure Jhoan Roberto Work Phone: [facility] Work Phone: Start: 10-08-2022 ambulatory M.Kelsea ROBERTO Facility:[id number] Start: 10-08-2022 Patient encounter procedure Jhoan Roberto Work Phone: [facility] Work Phone: Start: 10-01-2022 ambulatory M.Kelsea ROBERTO Facility:[id number] Start: 10-01-2022 Patient encounter procedure Jhoan Roberto Work Phone: [facility] Work Phone: Start: 09-24-2022 ambulatory M.D. JHOAN MARTINEZ FELISA Facility:[id number] Start: 09-24-2022 Patient encounter procedure Jhoan Ch Felisa Work Phone: [facility] Work Phone: Start: 09-17-[address] Jhoan Silva acility:[id number] Start: 09-10-2022 ambulatory M.D. JHOAN CERNA MICHELLE FELISA Facility:[id number] Start: 08-27-2022 Patient encounter procedure Jhoan Ch Felisa Work Phone: [facility] Work Phone: Start: 08-27-2022 ambulatory M.D. JHOAN SANDRA MICHELLE FELISA Facility:[id number] Start: 08-20-2022 Patient encounter procedure Jhoan Ch Felisa Work Phone: [facility] Work Phone: Start: 08-20-2022 ambulatory M.D. JHOAN MARTINEZ FELISA Facility:[id number] Start: 08-16-2022 Refill Kelly rose APRN.DRY CURE WORKER Work Phone: Obstetrics/Gynecology Comment on above: Refill Request Start: 08-13-2022 Patient encounter procedure Jhoan Ch Felisa Work Phone: [facility] Work Phone: Start: 08-13-2022 ambulatory M.D. JHOAN ROBERTO Facility:[id number] Start: 08-06-2022 ambulatory M.D. JHOAN CERNA MICHELLE FELISA Facility:[id number] Start: 07-18-2022 ambulatory M.D. JHOAN CERNA MICHELLE FELISA Facility:[id number] Start: 07-18-2022 Patient encounter procedure Jhoan Ch Felisa Work Phone: [facility] Work Phone: Start: 07-09-2022 ambulatory M.D. JHOAN ROBERTO Facility:[id number] Start: 07-09-2022 Patient encounter procedure Jhoan Ch Felisa Work Phone: [facility] Work Phone: Start: 07-07-2022 End: 07-07-2022 Patient encounter procedure Kelly Ames APRN.DRY CURE WORKER Work Phone: Obstetrics/Gynecology Comment on above: Encounter for gyneco logical examination (general) (routine) without abnormal findings (Primary Dx); Encounter for screening mammogram for malignant neoplasm of breast Start: 07-07-2022 End: 07-07-2022 Patient encounter status Kelly Domingo Ames APRN.DRY CURE WORKER Work Phone: Obstetrics/Gynecology Start: 07-02-2022 ambulatory M.D. JHOAN ROBERTO Facility:[id number] Start: 07-02-2022 Patient encounter procedure [facility]hoan Roberto [facility] Work Phone: Start: 06-25-2022 [email or web address], Provider : Rocael Alicea, Status: Pen, Time: 2:45 PM Jhoan Roberto Work Phone: [facility] Medicine 3201 Work Phone: Start: 06-23-2022 AUDIT Jhoan Roberto Work Phone: [facility] 3201 Work Phone: Start: 06-23-2022 Rx Renewal Jhoan Roberto Work Phone: [facility] 3201 Work Phone: Start: 06-18-2022 Patient encounter procedure [facility]hoan Roberto Work [facility] Work Phone: Start: 06-18-2022 ambulatory M.D. JHOAN ROBERTO Facility:[id number] Start: 06-11-2022 ambulatory M.D. JOHAN ROBERTO Facility:[id number] Start: 06-11-2022 Patient encounter procedure Jhoan Roberto Work Phone: [facility] Work Phone: Start: 06-04-2022 ambulatory M.D. JHOAN ROBERTO Facility:[id number] Start: 06-04-2022 Patient encounter procedure Jhoan Roberto Work Phone: [facility] Work Phone: Start: 06-04-2022 Office outpatient vi sit 15 minutes Huong Landis Dept. of Dermatology Start: 05-28-2022 AUDIT Jhoan Roberto Work Phone: [facility] Medicine-Internal Medicine 3201 Work Phone: Start: 05-26-2022 ambulatory M.D. JHOAN ROBERTO Facility:[id number] Start: 05-21-2022 Patient encounter procedure [facility]hoan Roberto [facility]: Start: 05-21-2022 ambulatory M.D. JHOAN ROBERTO Facility:[id number] Start: 05-16-2022 [id number], Provider : Veronica Moore, Status: Pen, Time: 7:45 AM Jhoan Roberto Work Phone: [facility] Work Phone: Start: 04-25-2022 Refill Kelly rose APRN.DRY CURE WORKER Work Phone: Obstetrics/Gynecology Comment on above: Refill Request Start: 04-07-2022 Telephone encounter Jhoan vazquez Work Phone: [facility]-Internal Medicine 3201 Work Phone: Start: 03-28-2022 Periodic preventive med est patient 40-64yrs Jhoan Roberto Work Phone: [facility] Medicine-Internal Medicine 3201 Work Phone: Start: 03-28-[address] Jhoan Silva acility:[id number] Start: 03-28-2022 Chart Update Jhoan Roberto [facility] 3201 Work Phone: Start: 03-07-2022 AUDIT Jhoan Roberto [facility] 3201 Work Phone: Start: 01-30-2022 Chart Update Jhoan Roberto Work [facility] 3201 Work Phone: Start: 01-29-2022 ECHO, Provider: TYLER GARCIAMG CARD, Status: Pen, Time: 9:00 AM Jhoan Roberto Work Phone: [facility] 3201 Work Phone: Start: 01-29-2022 NURSEVST, Provider: NURSEILENE CP JE, Status: Pen, Time: 8:15 AM Jhoan Roberto Work Phone: [facility] 3201 Work Phone: Start: 01-29-[address] Jhoan Silva acility:[id number] Start: 01-27-2022 AUDIT Jhoan Roberto Work Phone: [facility] 3201 Work Phone: Start: 01-08-2022 End: 01-08-2022 Subsequent hospital visit by physician Diagnostic Mammo 1 [place] Work Phone: Mammography Start: 01-02-2022 AUDIT Jhoan Roberto [facility] 3201 Work Phone: Start: 01-02-2022 Chart Update Jhoan Roberto [facility] 3201 Work Phone: Start: 01-01-2022 Office outpatient vi sit 25 minutes Jhoan Roberto [facility] 3201 Work Phone: Start: 10-18-2021 End: 10-18-2021 Patient encounter procedure Evette Batista OD Work Phone: Ophthalmology Comment on above: Abrasion of left cor thais, initial encounter (Primary Dx) Start: 09-18-2021 FUV, Provider: Jhoan Roberto, Status: Maverick, Time: 3:00 PM Jhoan Roberto [facility] 3201 Work Phone: Start: 09-18-2021 Office outpatient vi sit 25 minutes Jhoan Roberto Work Phone[facility] 3201 Work Phone: Start: 09-18-2021 Patient encounter procedure Jhoan Roberto [facility] 3201 Work Phone: Start: 09-17-2021 Rx Renewal Jhoan Roberto [facility] Work Phone: Start: 09-12-2021 Chart Update Jhoan Roberto [facility] 3201 Work Phone: Start: 09-02-2021 Current tobacco non- user cad cap copd pv dm Jhoan Roberto Work Phone: [facility] A2470 DO Work Phone: Start: 06-13-2021 Current tobacco non- user cad cap copd pv dm Jhoan Roberto Work Phone: [facility] A2470 DO Work Phone: Start: 06-13-2021 FUV, Provider: Selwyn Bell, Status: Maverick, Time: 11:30 AM Jhoan Roberto [facility] Work Phone: Start: 06-12-2021 Telephone encounter Jhoan vazquez Work Phone: [facility] 3201 Work Phone: Start: 05-30-2021 Chart Update Jhoan Roberto [facility] Work Phone: Start: 05-28-2021 Office outpatient vi sit 40 minutes Jhoan Roberto [facility] Work Phone: Start: 05-28-2021 Patient encounter procedure Jhoan Roberto [facility] Work Phone: Start: 05-24-2021 Chart Update Jhoan Roberto [facility] Work Phone: Start: 05-10-2021 Telephone encounter Jhoan vazquez [facility] Work Phone: Start: 05-09-2021 Office outpatient vi sit 25 minutes Jhoan Roberto [facility] Work Phone: Start: 02-28-2021 Office outpatient vi sit 15 minutes Huong Landis Dept. of Dermatology Start: 01-09-2021 Telephone encounter Jhoan vazquez [facility] Work Phone: Start: 01-07-2021 AUDIT Jhoan Roberto [facility] Phone[facility] Work Phone: Start: 01-07-2021 Patient encounter procedure Jhoan Roberto Work Phone: [facility] 3201 Work Phone: Start: 01-07-2021 Periodic preventive med est patient 40-64yrs Jhoan Contimilo Work Phone: [facility] 3201 Work Phone: Start: 01-04-2021 Chart Update Jhoan Contimilo [facility] 3201 Work Phone: Start: 01-03-2021 Chart Update Jhoan Ch Felisa [facility]: [facility] 3201 Work Phone: Start: 12-22-2020 Rx Renewal Jhoan Ch Felisa [facility] 3201 Work Phone: Start: 03-01-2020 Office outpatient vi sit 15 minutes Huong Comstock Dept. of Dermatology Start: 03-01-2020 Office outpatient vi sit 25 minutes [facility] Dept. of Dermatology Start: 10-17-2019 Patient encounter procedure Jhoan Roberto [facility]-Internal Medicine Work Phone: Start: 03-22-2019 Patient encounter procedure Jhoan Roberto [facility] [facility] Work Phone: Start: 01-06-2019 Patient encounter procedure Jhoan Roberto SR-Tfgpzxvjmfydk-Zmfac moris B102 Work Phone: Start: 11-06-2018 Patient encounter procedure Jhoan Eymilo UZ-Etisifyvhfzvg-Ficur moris B102 Work Phone: Start: 10-29-2018 Patient encounter procedure Jhoan Eyre HH-Xaysxxttlinmf-Fxfxq moris B102 Work Phone: Start: 10-20-2018 Patient encounter procedure Jhoan Roberto VC-Rnvuinrcsslsd-Elgjv moris B102 Work Phone: Start: 09-16-2018 Patient encounter procedure Jhoan COTABP-Gfgenujehityw-Ikmdg moris B102 Work Phone: Start: 02-08-2018 Patient encounter procedure Jhoan COTADQ-Idmgrioiwpjrd-Dcxvs moris B102 Work Phone: Start: 09-16-2017 Patient encounter procedure Jhoan COTAPN-Izjptnqpztzen-Hkays moris B102 Work Phone: Start: 08-06-2017 Patient encounter procedure Jhoan COTAED-Nobvtpmdefmue-Qztdg moris B102 Work Phone: Start: 02-02-2017 Patient encounter procedure Jhoan COTAPZ-Wjilbfrpzlose-Uktlt moris B102 Work Phone: Start: 10-11-2015 Office outpatient vi sit [facility] Start: 06-28-2015 Office outpatient ne w 20 minutes [facility] Start: 06-28-2015 Office outpatient vi sit 15 minutes [facility] Patient encounter status Jhoan Roberto Work Phone: [facility]-Internal Medicine 3201 Work Phone: Procedures Date Procedure Procedure Detail Performing Clinician Start: 10-16-2023 Lipid 1996 panel - S mino or Plasma Negar Michelletrell ELIAS Work Phone: Start: 05-22-2023 Mammography Jhoan Roberto MD Work Phone: Start: 05-13-2023 XR HAND LEFT 3+ VIEWS C SYLVAIN GHOSH Start: 05-13-2023 Radex hand minimum 3 views Jarod Ghosh MD Work Phone: Start: 04-22-2023 XR HAND LEFT 3+ VIEWS C OLE AUGIE Start: 04-06-2023 XR WRIST LEFT 3+ VIEWS JAROD GHOSH Start: 04-06-2023 XR HAND LEFT 3+ VIEWS C OLE AUGIE Start: 03-18-2023 ECG 12-LEAD HUONG VARGAS Start: 03-14-2023 Bilirubin.indirect [Mass/volume] in Serum or Plasma JHOAN FELISA Start: 03-14-2023 Comprehensive metabo lic 2000 panel - Serum or Plasma JHOAN FELISA Start: 03-14-2023 Ferritin [Mass/volum e] in Serum or Plasma JHOAN FELISA Start: 03-14-2023 GAMMA-GLUTAMYL TRANSFERASE JHOAN FELISA Start: 03-14-2023 Hemoglobin A1c/Hemoglobin.total in Blood JHOAN FELISA Start: 03-14-2023 HEPATITIS PANEL, ACUTE JHOAN FELISA Start: 03-14-2023 Lipid panel JHOAN FELISA Start: 03-14-2023 TSH WITH REFLEX TO F REE T4 IF ABNORMAL JHOAN ROBERTO Start: 03-14-2023 Lipid 1996 panel - S mino or Plasma Daniel Holguin [facility][NOTE 3] Work Phone: Start: 02-23-2023 DISCHARGE PATIENT JHOAN FELISA Start: 02-23-2023 SURGICAL PATHOLOGY EXAM JHOAN ROBERTO Start: 02-23-2023 Colonoscopy w/biopsy single/multiple Jhoan Roberto MD Work Phone: Start: 02-23-2023 Level iv surg pathol ogy gross&microscopic exam Milton Farrell MD Work Phone: Start: 02-23-2023 Colonoscopy [facility] Start: 01-23-2023 EMG AND NERVE CONDUCTION JHOAN ROBERTO Start: 01-23-2023 EMG AND NERVE CONDUCTION Kenzie Elizondo [employer] Work Phone: Start: 01-29-2022 Echocardiography Jhoan Roberto Work Phone: Start: 01-08-2022 End: 01-08-2022 Digital breast tomosynthesis bilateral Kelly Ames [employer] Work Phone: Start: 09-12-2021 Lipid 1996 panel - S mino or Plasma Jhoan Roberto MD Work Phone: Start: 07-24-2021 Excision of cyst Jhoan Roberto Work Phone: Start: 02-07-2021 Microscopic observat ion [Identifier] in Cervix by Cyto stain Jhoan Roberto MD Work Phone: Start: 08-17-2020 Mammography Damián Batista OD Work Phone: Start: 10-17-2019 Assay of prostate sp ecific antigen total Jhoan Roberto Start: 10-17-2019 Basic metabolic 1998 panel - Serum or Plasma Jhoan Roberto Start: 10-17-2019 CBC W Auto Different ial panel - Blood Jhoan Roberto Start: 10-17-2019 Lipid panel Jhoan Roberto Start: 10-17-2019 TSH WITH REFLEX TO F REE T4 IF ABNORMAL Jhoan Roberto Start: 03-22-2019 TSH WITH REFLEX TO F REE T4 IF ABNORMAL Jhoan Roberto Start: 07-23-2018 Administration of In jection (must bill w/Botox) Botulinum toxin type A J0585 x 23 Huong Landis Start: 04-09-2018 Administration of In jection (must bill w/Botox) Botulinum toxin type A J0585 x 19 Huong Landis Start: 10-27-2017 Colonoscopy Jhoan Roberto MD Work Phone: Start: 09-03-2016 Administration of In jection (must bill w/Botox) Botulinum toxin type A J0585 x 24 Huong Viverosahan Start: 01-23-2016 Administration of In jection (must bill w/Botox) Botulinum toxin type A J0585 x 20 Huong Viverosahan Start: 12-21-2015 Perfect Peel Single PPEEL1 Huong Viverosahan Start: 12-21-2015 Perfect Peel Single PPEEL1 Huong Viverosahan Start: 11-14-2015 Chemical Peel, Facial A drienmarisel Comstock Start: 11-14-2015 Chemical Peel, Facial DCPFE Huong Landis Start: 11-09-2015 Dermatology, Cosmeti c Evaluation $200.00Administration of Injection (must bill w/Botox) PBTXA Botulinum toxin type A J0585 x 20 Huong Viverosahan Start: 11-09-2015 Dermatology, Cosmeti c Evaluation DCON1 $200.00Administration of Injection (must bill w/Botox) PBTXA Botulinum toxin type A J0585 x 20 Huong Viverosahan Start: 03-22-2014 End: 02-14-2016 History of laser assisted in situ keratomileusis S/P LASIK surgery of both eyes Kelly O'Manning [employer] Work Phone: History of Corneal L ASIK Bilateral Jhoan Roberto Comment on above: 2006; History of Wrist Surgery Bentley Roberto Comment on above: right wrist surg - c yst; Plan of Treatment Date Care Activity Detail Author Start: 01-30-2032 DTaP/Tdap/Td Vaccine s (3 - Td or Tdap) DTaP/Tdap/Td Vaccines (3 - Td or Tdap) [facility] Start: 01-30-2032 Urine microalbumin profile DTaP,Tdap,Td Vaccine (3 - Td or Tdap) [place] Start: 10-15-2028 Lipid panel Lipid Screening [facility] Start: 03-14-2028 Lipid panel [facility] Start: 02-22-2028 Screening for malign ant neoplasm of colon [facility] Start: 10-28-2027 Screening for malign ant neoplasm of colon [facility] Start: 10-19-2026 Diabetes Screening Diabetes Screenin g [place] Start: 10-14-2026 Diabetes Screening Diabetes Screenin g [place] Start: 09-24-2026 Diabetes Screening Diabetes Screenin g [place] Start: 09-12-2026 Lipid panel Lipid Panel [facility] Start: 03-14-2026 Diabetes mellitus screening Diabetes Screening [facility] Start: 03-14-2026 Diabetes Screening Diabetes Screenin g [place] Start: 02-07-2026 HPV TESTING HPV TESTING [place] Start: 02-07-2026 PAP TESTING PAP TESTING [place] Start: 02-07-2026 Screening for malign ant neoplasm of cervix [place] Start: 03-27-2025 Diabetes mellitus screening Diabetes Screening [facility] Start: 10-05-2024 End: 10-05-2024 Patient encounter procedure 10/05/2024 3:30 PM EDT Office Visit [facility] [address] [address] Huong Landis MD [address] [place] [address] [facility] Start: 10-04-2024 BP Controlled (<130/80) BP Controlle d (<130/80) [place] Start: 10-04-2024 Screening for malign ant neoplasm of cervix Cervical Cancer Screening [place] Start: 05-22-2024 Screening for malign ant neoplasm of breast [place] Start: 03-21-2024 End: 03-21-2024 Patient encounter procedure 03/21/2024 3:30 PM EST Office Visit [facility] Internal Medicine [address] [facility] [address] [place] [address] Jhoan Roberto MD [address] [facility], [address] [place] [address] [facility] Start: 03-19-2024 Yearly Adult Physical Yearly Adult P hysical [facility] Start: 03-14-2024 Hemoglobin A1c measurement Diabetes: Hemoglobin A1C [facility] Start: 02-24-2024 Screening for malign ant neoplasm of colon [place] Start: 02-10-2024 End: 02-10-2024 Patient encounter procedure 02/10/2024 2:00 PM EDT Office Visit [facility] [address] [facility] [address] [place] [address] [place] [address] Department of Neurology/[place] [address] [facility] Start: 02-08-2024 Screening for malign ant neoplasm of cervix [facility] Start: 01-09-2024 DIABETES SCREEN DIABETES SCREEN [facility] Start: 01-07-2024 End: 01-07-2024 Patient encounter procedure 01/07/2024 3:30 PM EDT Office Visit [facility] [address] [facility] [address] [place] [address] Kenzie Elizondo, [employer] [address] [facility], [address] [place] [address] [facility] Start: 12-20-2023 Influenza vaccination Influenza Vacc ine (#1) [place] Start: 12-07-2023 End: 12-07-2023 Patient encounter procedure 12/07/2023 3:00 PM EDT Office Visit [facility] [address] [phone] Selwyn Bell DO [address] [place] [phone] [facility] Start: 11-05-2023 End: 11-05-2023 Patient encounter procedure 11/05/2023 1:20 PM EDT Office Visit [facility] [address] [facility] [address] [place] [phone] Sonia Abebe, [employer] [address] Department [place] [address] [facility] Start: 10-14-2023 End: 10-14-2023 Patient encounter procedure 10/14/2023 9:00 AM EDT Office Visit [facility] Internal Medicine [address] [phone] Jhoan Roberto MD [address] [facility], [place] [phone] [facility] Start: 10-05-2023 End: 09-27-2024 CBC W Auto Differential panel - Blood CBC and Auto Differential Lab Routine Neutropenia, unspecified type (CMS-HCC) Thrombocytopenia (CMS-HCC) Expected: 10/05/2023 (Approximate), Expires: 09/27/2024 [facility] Service Area Work Phone: Comment on above: Expected: 10/05/2023 (Approximate), Expires: 09/27/2024 Start: 10-05-2023 End: 09-27-2024 Comprehensive metabolic 2000 panel - Serum or Plasma Comprehensive Metabolic Panel Lab Routine Elevated LFTs Expected: 10/05/2023 (Approximate), Expires: 09/27/2024 [facility] Work Phone: Comment on above: Expected: 10/05/2023 (Approximate), Expires: 09/27/2024 Start: 09-30-2023 End: 09-30-2023 Patient encounter procedure 09/30/2023 2:45 PM EDT Office Visit [facility] [address] [place] [address] Huong Landis MD [address] [place] [address] [facility] Start: 09-16-2023 End: 09-16-2023 Patient encounter procedure 09/16/2023 7:45 AM EDT Appointment [facility] [address] [place] [address] [facility] Start: 09-16-2023 End: 09-16-2023 Professional / ancillary services management 09/16/2023 7:45 AM EDT Ancillary Procedure [facility] [address] [place] [address] [facility] Start: 07-13-2023 End: 07-13-2023 Patient encounter procedure 07/13/2023 3:00 PM EDT Office Visit [facility] [address] [place] [address] Selwyn Bell DO [address] [place] [address] [facility] Start: 06-17-2023 End: 06-17-2023 Patient encounter procedure 06/17/2023 8:15 AM EST Office Visit [facility] [address] [place] [phone] Jarod Ghosh MD [address] [facility], [address] [place] [address], [place] [address] [facility] Start: 06-05-2023 End: 06-05-2023 Patient encounter procedure 06/05/2023 9:00 AM EST Office Visit [facility] [address] [place] [address] Selwyn Bell DO [address] [place] [address] [facility] Start: 06-04-2023 End: 06-04-2023 Patient encounter procedure 06/04/2023 3:30 PM EST Office Visit [facility] Internal Medicine [address] [place] [address] Jhoan Roberto MD [address] [facility], [facility] [address] [place] [address] [facility] Start: 06-01-2023 End: 06-01-2023 Patient encounter procedure 06/01/2023 3:45 PM EST Office Visit [facility] [address] [place] [address] Huong Landis MD [address] [place] [address] [facility] Start: 05-25-2023 End: 05-25-2023 ambulatory 05/25/2023 3:00 PM EST Evaluation [facility] [address] [place] [address] Christen Ramon, OT [facility] Start: 04-22-2023 End: 04-22-2023 Patient encounter procedure 04/22/2023 4:00 PM EST Office Visit [facility] [address] [place] [phone] Jarod Ghosh MD [address] [facility], [address] [place] [address], [place] [address] [facility] Start: 04-20-2023 Behavioral Health Screening Behavioral Health Screening [place] Start: 04-20-2023 Depression Assessment Depression Ass essment [place] Start: 04-03-2023 FUV, Provider: Selwyn Bell, Status: Pen, Time: 8:30 AM FUV, Provider: Selwyn Bell, Status: Pen, Time: 8:30 AM [facility] Work Phone: Start: 03-27-2023 Hemoglobin A1c measurement Diabetes: Hemoglobin A1C [facility] Start: 03-18-2023 End: 03-18-2023 Patient encounter procedure 03/18/2023 2:00 PM EST Office Visit [facility] Internal Medicine [address] [phone] Jhoan Roberto MD [address] [facility], [facility] [address] [place] [address] [facility] Start: 03-06-2023 End: 03-06-2024 Comprehensive metabolic 2000 panel - Serum or Plasma Comprehensive Metabolic Panel Lab Routine Dyslipidemia, goal LDL below 100 Fatty liver Expected: 03/06/2023 (Approximate), Expires: 03/06/2024 [facility] Service Area Work Phone: Comment on above: Expected: 03/06/2023 (Approximate), Expires: 03/06/2024 Start: 03-06-2023 End: 03-06-2024 Hemoglobin A1c/Hemoglobin.total in Blood Hemoglobin A1C Lab Routine Prediabetes Expected: 03/06/2023 (Approximate), Expires: 03/06/2024 [facility] Work Phone: Comment on above: Expected: 03/06/2023 (Approximate), Expires: 03/06/2024 Start: 03-06-2023 End: 03-06-2024 Lipid 1996 panel - Serum or Plasma Lipid Panel Lab Routine Dyslipidemia, goal LDL below 100 Expected: 03/06/2023 (Approximate), Expires: 03/06/2024 [facility] Work Phone: Comment on above: Expected: 03/06/2023 (Approximate), Expires: 03/06/2024 Start: 03-06-2023 End: 03-06-2024 TSH with reflex to Free T4 if abnormal TSH with reflex to Free T4 if abnormal Lab Routine Dyslipidemia, goal LDL below 100 Expected: 03/06/2023 (Approximate), Expires: 03/06/2024 [facility] Work Phone: Comment on above: Expected: 03/06/2023 (Approximate), Expires: 03/06/2024 Start: 03-04-2023 End: 03-04-2023 Patient encounter procedure 03/04/2023 3:30 PM EST Office Visit [facility] [address] [phone] Huong Landis MD [address], [address] [address] [facility] Start: 03-03-2023 COVID-19 Vaccine (4 - Pfizer series) COVID-19 Vaccine (4 - Pfizer series) [facility] Start: 02-23-2023 JACE, Provider: Milton Farrell, Status: Pen, Time: 8:40 AM JACE, Provider: Milton Farrell, Status: Pen, Time: 8:40 AM [facility] Work Phone: Start: 01-23-2023 EMG, Provider: JOSEPHINE 1,NEURODIAG, Status: Pen, Time: 2:45 PM EMG, Provider: EMGFRANCHESKA 1,NEURODIAG, Status: Pen, Time: 2:45 PM -[facility] Work Phone: Start: 01-08-2023 Mammography MAMMOGRAM [place] Start: 01-08-2023 Screening for malign ant neoplasm of breast Mammogram Screening [place] Start: 12-19-2022 Influenza vaccination Influenza Vacc ine (#1) [facility] Start: 12-17-2022 PTFUADULT4, Provider : Rocael Alicea, Status: Pen, Time: 7:45 AM PTFUADULT4, Provider: Rocael Alicea, Status: Pen, Time: 7:45 AM [facility] Work Phone: Start: 12-10-2022 PTFUADULT4, Provider : Rocael Alicea, Status: Pen, Time: 7:45 AM PTFUADULT4, Provider: Rocael Alicea, Status: Pen, Time: 7:45 AM [facility] Work Phone: Start: 12-04-2022 NPV, Provider: Char Johnson, Status: Pen, Time: 3:30 PM NPV, Provider: Char Johnson, Status: Pen, Time: 3:30 PM [facility] Work Phone: Start: 12-03-2022 PTFUADULT4, Provider : Rocael Alicea, Status: Pen, Time: 7:45 AM PTFUADULT4, Provider: Rocael Alicea, Status: Pen, Time: 7:45 AM [facility] Work Phone: Start: 11-26-2022 PTFUADULT4, Provider : Rocael Alicea, Status: Pen, Time: 7:45 AM PTFUADULT4, Provider: Rocael Alicea, Status: Pen, Time: 7:45 AM [facility] Work Phone: Start: 11-20-2022 NPV, Provider: Char Johnson, Status: Pen, Time: 3:30 PM NPV, Provider: Char Johnson, Status: Pen, Time: 3:30 PM [facility] [address] Work Phone: Start: 11-19-2022 PTFUADULT4, Provider : Rocael Alicea, Status: Pen, Time: 7:45 AM PTFUADULT4, Provider: Rocael Alicea, Status: Pen, Time: 7:45 AM [facility] Work Phone: Start: 11-17-2022 VIRNPVHOME, Provider : Kenzie Elizondo, Status: Pen, Time: 8:30 AM VIRNPVHOME, Provider: Kenzie Elizondo, Status: Pen, Time: 8:30 AM [facility] Work Phone: Start: 11-13-2022 NPV, Provider: Char Johnson, Status: Pen, Time: 3:30 PM NPV, Provider: Char Johnson, Status: Pen, Time: 3:30 PM [facility] Work Phone: Start: 11-05-2022 PTFUADULT4, Provider : Rocael Alicea, Status: Pen, Time: 7:00 AM PTFUADULT4, Provider: Rocael Alicea, Status: Pen, Time: 7:00 AM [facility] Work Phone: Start: 10-29-2022 NPVGENERAL, Provider : Wilbur Kraus, Status: Pen, Time: 3:20 PM NPVGENERAL, Provider: Wilbur Kraus, Status: Pen, Time: 3:20 PM [facility] Work Phone: Start: 10-29-2022 PTFUADULT4, Provider : Rocael Alicea, Status: Pen, Time: 7:00 AM PTFUADULT4, Provider: Rocael Alicea, Status: Pen, Time: 7:00 AM [facility] Work Phone: Start: 10-17-2022 FUV, Provider: Jhoan Roberto, Status: Pen, Time: 2:00 PM FUV, Provider: Jhoan Roberto, Status: Pen, Time: 2:00 PM [facility] Work Phone: Start: 10-17-2022 End: 10-18-2023 Basic metabolic 2000 panel - Serum or Plasma Basic Metabolic Panel Lab Routine Prediabetes Expected: 10/17/2022 (Approximate), Expires: 10/18/2023 [facility] Work Phone: Comment on above: Expected: 10/17/2022 (Approximate), Expires: 10/18/2023 Start: 10-17-2022 End: 04-18-2024 Colonoscopy Colonoscopy Endoscopy Routine Adenomatous polyp of colon, unspecified part of colon Expected: 10/17/2022 (Approximate), Expires: 04/18/2024 [facility] Work Phone: Comment on above: Expected: 10/17/2022 (Approximate), Expires: 04/18/2024 Start: 10-17-2022 End: 10-18-2023 Hemoglobin A1c/Hemoglobin.total in Blood Hemoglobin A1C Lab Routine Prediabetes Expected: 10/17/2022 (Approximate), Expires: 10/18/2023 [facility] Service Area Work Phone: Comment on above: Expected: 10/17/2022 (Approximate), Expires: 10/18/2023 Start: 10-17-2022 End: 10-18-2023 Hepatic function 2000 panel - Serum or Plasma Hepatic Function Panel Lab Routine Fatty liver Expected: 10/17/2022 (Approximate), Expires: 10/18/2023 [facility] Work Phone: Comment on above: Expected: 10/17/2022 (Approximate), Expires: 10/18/2023 Start: 10-17-2022 End: 10-18-2023 US elastography parenchyma EG organ US elastography parenchyma EG organ Imaging Routine Fatty liver Expected: 10/17/2022, Expires: 10/18/2023 [facility] Work Phone: Comment on above: Expected: 10/17/2022 , Expires: 10/18/2023 Start: 10-15-2022 PTFUADULT4, Provider : Rocael Alicea, Status: Pen, Time: 7:45 AM PTFUADULT4, Provider: Rocael Alicea, Status: Pen, Time: 7:45 AM [facility] Work Phone: Start: 10-13-2022 FUV, Provider: Selwyn Bell, Status: Pen, Time: 3:30 PM FUV, Provider: Selwyn Bell, Status: Pen, Time: 3:30 PM [facility] Work Phone: Start: 10-08-2022 PTFUADULT4, Provider : Rocael Alicea, Status: Pen, Time: 7:45 AM PTFUADULT4, Provider: Rocael Alicea, Status: Pen, Time: 7:45 AM [facility] Work Phone: Start: 10-01-2022 PTFUADULT4, Provider : Rocael Alicea, Status: Pen, Time: 7:45 AM PTFUADULT4, Provider: Rocael Alicea, Status: Pen, Time: 7:45 AM [facility] Work Phone: Start: 09-29-2022 FUV, Provider: Jhoan Roberto, Status: Pen, Time: 4:00 PM FUV, Provider: Jhoan Roberto, Status: Pen, Time: 4:00 PM [facility] Work Phone: Start: 09-26-2022 FUV, Provider: Jhoan Roberto, Status: Pen, Time: 1:30 PM FUV, Provider: Jhoan Roberto, Status: Pen, Time: 1:30 PM [facility]-Internal [facility] [address] Work Phone: Start: 09-24-2022 PTFUADULT4, Provider : Rocael Alicea, Status: Pen, Time: 7:45 AM PTFUADULT4, Provider: Rocael Alicea, Status: Pen, Time: 7:45 AM [facility] Work Phone: Start: 08-27-2022 PTFUADULT4, Provider : Rocael Alicea, Status: Pen, Time: 7:00 AM PTFUADULT4, Provider: Rocael Alicea, Status: Pen, Time: 7:00 AM [facility] Work Phone: Start: 08-25-2022 FUV, Provider: Selwyn Bell, Status: Pen, Time: 11:30 AM FUV, Provider: Selwyn Bell, Status: Pen, Time: 11:30 AM [facility] Work Phone: Start: 08-20-2022 PTFUADULT4, Provider : Rocael Alicea, Status: Pen, Time: 7:00 AM PTFUADULT4, Provider: Rocael Alciea, Status: Pen, Time: 7:00 AM [facility] Work Phone: Start: 08-13-2022 PTFUADULT4, Provider : Rocael Alicea, Status: Pen, Time: 7:00 AM PTFUADULT4, Provider: Rocael Alicea, Status: Pen, Time: 7:00 AM [facility] Work Phone: Start: 08-06-2022 PTFUADULT4, Provider : Rocael Alicea, Status: Pen, Time: 7:45 AM PTFUADULT4, Provider: Rocael Alicea, Status: Pen, Time: 7:45 AM [facility] Work Phone: Start: 07-18-2022 PTFUADULT4, Provider : Rocael Alicea, Status: Pen, Time: 4:15 PM PTFUADULT4, Provider: Rocael Alicea, Status: Pen, Time: 4:15 PM [facility] Work Phone: Start: 07-16-2022 NPVGENERAL, Provider : Wilbur Kraus, Status: Pen, Time: 8:00 AM NPVGENERAL, Provider: Wilbur Kraus, Status: Pen, Time: 8:00 AM [facility] Work Phone: Start: 07-14-2022 FUV, Provider: Selwyn Bell, Status: Pen, Time: 8:30 AM FUV, Provider: Selwyn Bell, Status: Pen, Time: 8:30 AM [facility] Work Phone: Start: 07-11-2022 FUV, Provider: Selwyn Bell, Status: Pen, Time: 9:00 AM FUV, Provider: Selwyn Bell, Status: Pen, Time: 9:00 AM [facility] Work Phone: Start: 07-09-2022 PTFUADULT4, Provider : Rocael Alicea, Status: Pen, Time: 2:45 PM PTFUADULT4, Provider: Rocael Alicea, Status: Pen, Time: 2:45 PM [facility] Work Phone: Start: 07-02-2022 PTFUADULT4, Provider : Rocael Alicea, Status: Pen, Time: 2:45 PM PTFUADULT4, Provider: Rocael Alicea, Status: Pen, Time: 2:45 PM [facility] Work Phone: Start: 06-25-2022 PTFUADULT4, Provider : Rocael Alicea, Status: Pen, Time: 2:45 PM PTFUADULT4, Provider: Rocael Alicea, Status: Pen, Time: 2:45 PM [facility] Work Phone: Start: 06-18-2022 PTFUADULT4, Provider : Rocael Alicea, Status: Pen, Time: 7:45 AM PTFUADULT4, Provider: Rocael Alicea, Status: Pen, Time: 7:45 AM [facility] Work Phone: Start: 06-11-2022 PTFUADULT4, Provider : Rocael Alicea, Status: Pen, Time: 7:00 AM PTFUADULT4, Provider: Rocael Alicea, Status: Pen, Time: 7:00 AM [facility] Work Phone: Start: 06-04-2022 PTFUADULT4, Provider : Rocael Alicea, Status: Pen, Time: 7:00 AM PTFUADULT4, Provider: Rocael Alicea, Status: Pen, Time: 7:00 AM [facility] Work Phone: Start: 05-26-2022 PTFUADULT4, Provider : Rocael Alicea, Status: Pen, Time: 10:30 AM PTFUADULT4, Provider: Rocael Alicea, Status: Pen, Time: 10:30 AM [facility] Work Phone: Start: 05-23-2022 FUV, Provider: Selwyn Bell, Status: Pen, Time: 9:30 AM FUV, Provider: Selwyn Bell, Status: Pen, Time: 9:30 AM [facility] 3201 Work Phone: Start: 05-14-2022 PTEVAADULT, Provider : Luzmaria Larsen, Status: Pen, Time: 11:00 AM PTEVAADULT, Provider: Luzmaria Larsen, Status: Pen, Time: 11:00 AM [facility] Work Phone: Start: 04-20-2022 DEPRESSION ASSESSMENT DEPRESSION ASS ESSMENT [place] Start: 04-09-2022 COVID-19 Vaccine (4 - Booster for Pfizer series) COVID-19 Vaccine (4 - Booster for Pfizer series) [facility] Start: 03-28-2022 PHYSICAL, Provider: Jhoan Roberto, Status: Pen, Time: 11:00 AM PHYSICAL, Provider: Jhoan Roberto, Status: Pen, Time: 11:00 AM [facility] Work Phone: Start: 03-24-2022 PHYSICAL, Provider: Jhoan Roberot, Status: Pen, Time: 7:45 AM PHYSICAL, Provider: Jhoan Roberto, Status: Pen, Time: 7:45 AM [facility] 3201 Work Phone: Start: 03-19-2022 PHYSICAL, Provider: Jhoan Roberto, Status: Pen, Time: 8:30 AM PHYSICAL, Provider: Jhoan Roberto, Status: Pen, Time: 8:30 AM [facility] 3201 Work Phone: Start: 03-07-2022 FUV, Provider: Selwyn Bell, Status: Pen, Time: 9:00 AM FUV, Provider: Selwyn Bell, Status: Pen, Time: 9:00 AM [facility] 3201 Work Phone: Start: 03-03-2022 FUV, Provider: Selwyn Bell, Status: Pen, Time: 4:00 PM FUV, Provider: Selwyn Bell, Status: Pen, Time: 4:00 PM [facility] [id number] DO Work Phone: Start: 02-07-2022 Screening for malign ant neoplasm of cervix Cervical Cancer Screening [place] Start: 01-29-2022 ECHO, Provider: MARYLOU HHVI,MG CARD, Status: Pen, Time: 9:00 AM ECHO, Provider: MARYLOU HHVI,MG CARD, Status: Pen, Time: 9:00 AM [facility] Work Phone: Start: 01-29-2022 NURSEVST, Provider: NURSEILENE CP, Status: Pen, Time: 8:15 AM NURSEVST, Provider: ILENE COFFMAN CP, Status: Pen, Time: 8:15 AM [facility] Work Phone: Start: 12-19-2021 Influenza vaccination INFLUENZA (#1) [place] Start: 11-01-2021 COVID-19 VACCINE (5 - Booster for Pfizer series) COVID-19 VACCINE (5 - Booster for Pfizer series) [place] Start: 09-18-2021 FUV, Provider: Jhoan Roberto, Status: Pen, Time: 3:00 PM FUV, Provider: Jhoan Roberto, Status: Pen, Time: 3:00 PM [facility] [id number] DO Work Phone: Start: 09-02-2021 FUV, Provider: Selwyn Bell, Status: Pen, Time: 8:00 AM FUV, Provider: Selwyn Bell, Status: Pen, Time: 8:00 AM [facility] [id number] DO Work Phone: Start: 08-17-2021 Mammography MAMMOGRAM [place] Start: 07-31-2021 FUV, Provider: Jhoan Roberto, Status: Pen, Time: 3:30 PM FUV, Provider: Jhoan Roberto, Status: Pen, Time: 3:30 PM [facility] Work Phone: Start: 07-08-2021 FUV, Provider: Jhoan Roberto, Status: Pen, Time: 9:00 AM FUV, Provider: Jhoan Roberto, Status: Pen, Time: 9:00 AM [facility] Work Phone: Start: 06-20-2021 NPV, Provider: Char Johnson, Status: Pen, Time: 8:00 AM NPV, Provider: Char Johnson, Status: Pen, Time: 8:00 AM [place] [id number] Work Phone: Start: 06-13-2021 FUVSLEEP, Provider: Selwyn Bell, Status: Pen, Time: 11:30 AM FUVSLEEP, Provider: Slewyn Bell, Status: Pen, Time: 11:30 AM [facility] 320 Work Phone: Start: 06-13-2021 NPV, Provider: Char Johnson, Status: Pen, Time: 8:00 AM NPV, Provider: Char Johnson, Status: Pen, Time: 8:00 AM [facility] Work Phone: Start: 05-28-2021 FUV, Provider: Jhoan Roberto, Status: Pen, Time: 3:30 PM FUV, Provider: Jhoan Roberto, Status: Pen, Time: 3:30 PM [place] [address] Work Phone: Start: 03-07-2021 NPVSLEEP, Provider: Selwyn Bell, Status: Pen, Time: 4:00 PM NPVSLEEP, Provider: Selwyn Bell, Status: Pen, Time: 4:00 PM [facility] Work Phone: Start: 01-07-2021 PHYSICAL, Provider: Jhoan Roberto, Status: Pen, Time: 10:30 AM PHYSICAL, Provider: Jhoan Roberto, Status: Pen, Time: 10:30 AM [place] [address] Work Phone: Start: 2020 SHINGRIX VACCINE (1 of 2) SHINGRIX VACCINE (1 of 2) [place] Start: 08-09-2015 COLOGUARD (FIT-DNA) COLOGUARD (FIT-D NA) [place] Start: 08-09-2015 Colonoscopy COLONOSCOPY [place] Start: 08-09-2015 COLORECTAL CANCER SCREENING COLORECTAL CANCER SCREENING [place] Start: 08-09-[address] COLONOGRAPHY [facility] Start: 08-09-2015 FECAL OCCULT BLOOD FECAL OCCULT BLOO D [place] Start: 08-09-2015 LIPID SCREEN LIPID SCREEN [place] Start: 08-09-2015 Screening for malign ant neoplasm of colon [place] Start: 08-09-2015 SIGMOIDOSCOPY SIGMOIDOSCOPY [facility] Start: 08-09-1991 Screening for malign ant neoplasm of cervix HPV/Cotest [facility] Start: 1989 Hepatitis A Vaccines (1 of 2 - Risk 2-dose series) Hepatitis A Vaccines (1 of 2 - Risk 2-dose series) [facility] Start: 1989 Hepatitis B Vaccine (1 of 3 - 19+ 3-dose series) Hepatitis B Vaccine (1 of 3 - 19+ 3-dose series) [place] Start: 1989 Hepatitis B Vaccines (1 of 3 - 19+ 3-dose series) Hepatitis B Vaccines (1 of 3 - 19+ 3-dose series) [facility] Start: 1989 Urine microalbumin profile DTAP,TDAP,TD (1 - Tdap) [place] Start: 1988 Annual PCP Team Investments Manager keyshawn Disease Visit Annual PCP Team Chronic Disease Visit [place] Start: 1988 Hepatitis C screening Hepatitis C Sc jennifer [facility] Start: 1982 Adult depression screening assessment DEPRESSION SCREENING [place] Start: 1976 Pneumococcal Vaccine : Pediatrics (0 to 5 Years) and At-Risk Patients (6 to 64 Years) (1 - PCV) Pneumococcal Vaccine: Pediatrics (0 to 5 Years) and At-Risk Patients (6 to 64 Years) (1 - PCV) [facility] Start: 1976 Pneumococcal Vaccine : Pediatrics (0 to 5 Years) and At-Risk Patients (6 to 64 Years) (1 of 2 - PCV) Pneumococcal Vaccine: Pediatrics (0 to 5 Years) and At-Risk Patients (6 to 64 Years) (1 of 2 - PCV) [facility] Start: 08-09-1971 MMR Vaccines (1 of 1 - Standard series) MMR Vaccines (1 of 1 - Standard series) [facility] Start: 1970 HEPATITIS B (1 of 3 - 3-dose series) HEPATITIS B (1 of 3 - 3-dose series) [place] Start: 1970 Hepatitis B Vaccine (1 of 3 - 3-dose series) Hepatitis B Vaccine (1 of 3 - 3-dose series) [place] Start: 1970 Hepatitis B Vaccines (1 of 3 - 3-dose series) Hepatitis B Vaccines (1 of 3 - 3-dose series) [facility] Start: 1970 HIV screening HIV Screening [facility] Start: 1970 Screening for malign ant neoplasm of colon [facility] Start: 1970 Yearly Adult Physical Yearly Adult P hysical [facility] End: 11-03-2024 DBT Breast - bilateral screening CIERRA SCREENING W BRITTANI Radiology Routine Encounter for screening mammogram for malignant neoplasm of breast 1 Occurrences starting 10/05/2023 until 11/03/2024 [facility] Work Phone: Comment on above: 1 Occurrences starti ng 10/05/2023 until 11/03/2024 Drugs of abuse scree n W Reflex confirm panel - Urine Drug Screen, Urine With Reflex to Confirmation Lab Routine Alcoholism (CMS/HCC) Ordered: 03/20/2023 [facility] Service Area Work Phone: Comment on above: Ordered: 03/20/2023 Ethyl glucuronide [Presence] in Urine by Screen method Ethyl Glucuronide Screen To Confirm,U Lab Routine Alcoholism (CMS/HCC) Ordered: 03/20/2023 [facility] Work Phone: Comment on above: Ordered: 03/20/2023 End: 10-22-2024 ETHYL GLUCURONIDE UR SCR ETHYL GLUCURONIDE UR SCR Lab Routine Alcohol use disorder, severe, dependence (HCC) Once per week for 30 Occurrences starting 10/23/2023 until 10/22/2024 [place] Comment on above: Once per week for 30 Occurrences starting 10/23/2023 until 10/22/2024 End: 08-06-2023 CIERRA SCREENING CIERRA SCREENING Radiology Routine Encounter for screening mammogram for malignant neoplasm of breast 1 Occurrences starting 07/07/2022 until 08/06/2023 [facility] Work Phone: Comment on above: 1 Occurrences starti ng 07/07/2022 until 08/06/2023 End: 08-06-2023 CIERRA SCREENING W BRITTANI CIERRA SCREENING W BRITTANI Radiology Routine Encounter for screening mammogram for malignant neoplasm of breast 1 Occurrences starting 07/07/2022 until 08/06/2023 [facility] Work Phone: Comment on above: 1 Occurrences starti ng 07/07/2022 until 08/06/2023 CIERRA SCREENING W BRITTANI CIERRA SCREENI NG W BRITTANI Radiology Routine Encounter for screening mammogram for malignant neoplasm of breast 05/22/2023 3:16 PM EST [facility] Work Phone: End: 10-22-2024 PAIN PANEL, UR QUANT PAIN PANEL, UR QUANT Lab Routine Alcohol use disorder, severe, dependence (HCC) Once per week for 30 Occurrences starting 10/23/2023 until 10/22/2024 [place] Comment on above: Once per week for 30 Occurrences starting 10/23/2023 until 10/22/2024 PAP TEST PAP TEST Lab Roberto claudio Encounter for gynecological examination (general) (routine) without abnormal findings Ordered: 10/05/2023 [place] Comment on above: Ordered: 10/05/2023 Surgical pathology study Surgical Pathology Exam Pathology and Cytology Timed Encounter for screening for malignant neoplasm of colon Benign neoplasm of colon, unspecified part of colon Release Upon Ordering for 1 Occurrences starting 02/23/2023 [facility] Service Area Work Phone: Comment on above: Release Upon Orderin g for 1 Occurrences starting 02/23/2023 End: 10-20-2024 TOXICOLOGY SCREEN, ROUTINE URINE TOXICOLOGY SCREEN, ROUTINE URINE Lab Routine Alcohol use disorder, severe, dependence (HCC) 30 Occurrences starting 10/23/2023 until 10/20/2024 [facility] Work Phone: Comment on above: 30 Occurrences start ing 10/23/2023 until 10/20/2024 End: 09-26-2023 US Abdomen [facility] Service Area Work Phone: Comment on above: Once for 1 Occurrenc es starting 09/26/2023 until 09/26/2023 [facility] Immunizations Immunization Date Immunization Notes Care Provider Jevon haynes 01-06-2023 Pfizer COVID-19 vaccine, Fall 2022, 12 years and older, (30mcg/0.3mL) Jhoan Roberto MD Work Phone: [facility] Work Phone: 01-02-2023 influenza, injectabl e, quadrivalent, preservative free Jhoan Roberto MD Work Phone: [facility] Work Phone: 01-02-2023 influenza virus vaccine, unspecified formulation Negar ELIAS Work Phone: [place] 02-12-2022 Influenza, injectabl e, Madin Sidra Canine Kidney, preservative free, quadrivalent Jhoan Roberto Work Phone: [facility] 3[address] Work Phone: 02-12-2022 Pfizer COVID-19 Vac Bivalent 30 MCG/0.3ML Intramuscular Suspension Jhoan Roberto Work Phone: [facility] 3201 Work Phone: 02-12-2022 influenza virus vaccine, unspecified formulation Jhoan Roberto MD Work Phone: [facility] Work Phone: 01-29-2022 tetanus toxoid, redu justen diphtheria toxoid, and acellular pertussis vaccine, adsorbed; Translations: [Tdap (Boostrix)] Jhoan Roberto Work Phone: [facility] 3201 Work Phone: Comment on above: Series: 09-06-2021 Comirnaty 30 MCG/0.3 ML Intramuscular Suspension Jhoan Roberto Work Phone: [facility] 3[address] Work Phone: 04-24-2021 zoster vaccine recombinant Jhoan Roberto Work Phone: [facility] 3201 Work Phone: 02-23-2021 Pfizer-BioNTech COVID-19 Vacc 30 MCG/0.3ML Intramuscular Suspension Jhoan Roberto [facility] Work Phone: 01-30-2021 influenza, seasonal, injectable Jhoan Roberto Work Phone: [facility] 3201 Work Phone: 01-30-2021 zoster vaccine recombinant Jhoan Roberto [facility] Work Phone: 07-27-2020 Pfizer-BioNTech COVID-19 Vacc 30 MCG/0.3ML Intramuscular Suspension Jhoan Roberto Work [facility] [address] Work Phone: 07-06-2020 Pfizer-BioNTech COVID-19 Vacc 30 MCG/0.3ML Intramuscular Suspension Jhoan Roberto Work [facility] [address] Work Phone: 03-12-2012 tetanus toxoid, redu justen diphtheria toxoid, and acellular pertussis vaccine, adsorbed; Translations: [Tdap (Adacel)] [facility] Comment on above: Series: 1970 pneumococcal conjuga te vaccine, 7 valent [facility] Payers Date Payer Category Payer Unknown * 2022 Unknown [id number] 2021 Private Health Insurance [facility] [id number] 2021-Present [phone] [address] [address] [place] [address] PPO [id number] 2021 Unknown [id number] 2016 Unknown MMO MMO [employer] [id number] 2016-Present [phone] [address] [place] [address] PPO [id number] 2016 Unknown [id number] 2014 Unknown 1970 Unknown [id number] 2.16.840.1.158183.3.579. 2.1067 1970 Unknown [id number] 2.16.840.1.008253.3.579. 2.1067 1970 Unknown [id number] 2.16.840.1.666987.3.579. 2.1067 1970 Unknown [id number] 2.16.840.1.738584.3.579. 2.1067 1970 Unknown [id number] 2.16.840.1.274419.3.579. 2.1067 1970 Unknown [id number] 2.16.840.1.444418.3.579. 2.1067 1970 Unknown [id number] 2.16.840.1.132783.3.579. 2.1067 1970 Unknown [id number] 2.16.840.1.505544.3.579. 2.1067 1970 Unknown [id number] 2.16.840.1.242736.3.579. 2.1067 1970 Unknown [id number] 2.16.840.1.557171.3.579. 2.1067 1970 Unknown [id number] 2.16.840.1.070682.3.579. 2.1067 1970 Unknown [id number] 2.16.840.1.292752.3.579. 2.1067 1970 Unknown [id number] 2.16.840.1.123691.3.579. 2.1067 1970 Unknown [id number] 2.16.840.1.520349.3.579. 2.1067 1970 Unknown [id number] 2.16.840.1.140684.3.579. 2.8 1970 Unknown [id number] 2.16.840.1.737711.3.579. 2.1067 1970 Unknown [id number] 2.16.840.1.894227.3.579. 2.8 1970 Unknown [id number] 2.16.840.1.162861.3.579. 2.1067 1970 Unknown [id number] 2.16.840.1.458661.3.579. 2.1067 1970 Unknown [id number] 2.16.840.1.723517.3.579. 2.1067 1970 Unknown [id number] 2.16840.1.465835.3.579. 2.356 1970 Unknown [id number] 2.840.1.054949.3.579. 2. 1970 Unknown [id number] 2.16840.1.999245.3.579. 2.356 1970 Unknown [id number] 2.840.1.491448.3.579. 2.356 1970 Unknown [id number] 2.16840.1.908885.3.579. 2. 1970 Unknown [id number] 2.840.1.712545.3.579. 2.356 1970 Unknown [id number] 2.16840.1.180808.3.579. 2.356 1970 Unknown [id number] 2.16.840.1.868780.3.579. 2.356 1970 Unknown [id number] 2.16.840.1.238306.3.579. 2.6 1970 Unknown [id number] 2.16840.1.885172.3.579. 2.6 1970 Unknown [id number] 2.16.840.1.642878.3.579. 2.1245 1970 Unknown [id number] 2.16.840.1.633548.3.579. 2.1245 1970 Unknown [id number] 2.16.840.1.715890.3.579. 2.1245 1970 Unknown [id number] 2.16.840.1.771094.3.579. 2.1245 1970 Unknown [id number] 2.16.840.1.528641.3.579. 2.1245 1970 Unknown [id number] 2.16.840.1.047366.3.579. 2.1243 1970 Unknown [id number] 2.16.840.1.013354.3.579. 2.1243 1970 Unknown [id number] 2.840.1.383886.3.579. 2.1243 1970 Unknown [id number] 2.840.1.720295.3.579. 2.1243 1970 Unknown [id number] 2.840.1.994913.3.579. 2.1243 1970 Unknown [id number] 2.16.840.1.958332.3.579. 2.1243 1970 Unknown [id number] 2.840.1.293144.3.579. 2.1244 1970 Unknown [id number] 2.16840.1.046995.3.579. 2.1244 1970 Unknown [id number] 2.16840.1.444178.3.579. 2.1244 1970 Unknown [id number] 2.16.840.1.193137.3.579. 2.1244 1970 Unknown [id number] 2.16.840.1.872144.3.579. 2.1244 1970 Unknown [id number] 2.16.840.1.878639.3.579. 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 Start: 1970 End: 1970 Sex Assigned At Female [facility] Start: 01-30-2011 End: 07-07-2022 Tobacco smoking status NHIS Ex-smoker [place] Start: 01-30-2011 End: 07-07-2022 Tobacco use and exposure Smokeless tobacco non-user [place] Start: 10-18-2021 End: 10-16-2023 Alcohol intake Current drinker of alcohol (finding) [place] Start: 01-05-2008 History SDOH Alcohol Comment social [place] Start: 1970 Sex Assigned At Not on file C [facility] End: 04-20-2013 History of tobacco use Current smoker [place] Start: 12-29-2021 End: 09-30-2023 Exposure to SARS-CoV-2 (event) Not sure [place] Start: 07-07-2022 Tobacco Comment Social smoker once in a huge while [place] Start: 02-17-2021 End: 04-20-2022 History of tobacco use Cigarette Smoker [facility] Work Phone: Start: 10-17-2022 End: 05-22-2023 Tobacco use panel [facility] Work Phone: Start: 02-17-2021 Tobacco smoking stat us NHIS Occasional tobacco smoker [facility] Work Phone: Start: 03-06-2023 Tobacco Comment I have a cigar ette every once in a while [facility] Work Phone: National Score (1-100), lower number is lower risk 52 [place] NEGATED: Highlighted row - - MR-Oxzxqxiazugqc[place] Work Phone: Goals Date Patient Goal Desired Activity /State Functional Status Date Assessment Result Facility NEGATED: Highlighted row Functional performance Functional status health issues are not documented Disease DF-Capqhsddfsdbr-Gf reid [facility] Work Phone: Mental Status Date Assessment Result Facility NEGATED: Highlighted row Cognitive function [Interpretation] Cognitive status health issues are not documented Disease PQ-Gvwizepqvjpkc-Ya reid [employer] Work Phone: Clinical Notes 03-22-2014 to 10-23-2023 Behavorial Health Intake - Terrance Hayes - 10/15/2023 10:49 AM EDTBehavorial Health Intake - Terrance Hayes - 10/15/2023 10:49 AM EDTPatieran Landis MD - 09/30/2023 2:45 PM EDT Note Date & Type Note Facility 10-23-2023 Note HNO ID: [id number] Author: NEGAR MICHELLE LISW Service: ? Author Type: Counselor Type: Progress Notes Filed: 10/23/2023 09:40 Note Text: [facility] Assessment Visit Type:Virtual Visit utilizing two-way audio and video for at least a portion of the visit. Consent for virtual visit obtained verbally. Confidentiality limitations with virtual visits reviewed with the patient and guardian, if present, who have accepted the risk verbally prior to proceeding with encounter. I have communicated my name and active licensure. The patient's identity and physical location were verified at the time of this visit. Either the patient or their legal reimbursement representative has been informed of the risks and benefits of -- and alternatives to -- treatment through a remote evaluation and consents to proceed with the evaluation remotely. IDENTIFYING INFORMATION: Duration of Interview: start time 8:45 AM and end time 9:35 AM REFERRAL SOURCE: step down from inpatient hospitalization. BENEFITS: Payor: [employer] / Plan: [employer] / Product Type: PPO / INFORMED CONSENT: Patient verbally consented to virtual evaluation. Patient and this card writer hand present during interview. PRECIPITATING PROBLEM(S): Patient reports that she was admitted to the hospital 10/16/2023-10/21/2023 following an alcohol withdrawal related seizure. Patient reports that prior to this alcohol was probably every day, and probably if you go by standard drinks probably close to 10 drinks (wine) per day (will purchase smaller boxes- 3 drinks per box and will drink 3-4 of those a day). Patient reports last use of alcohol was 10/15/2023- 3-4 small boxes of wine. Current withdrawal symptoms: none HISTORY OF PRESENT ILLNESS: ALCOHOL: How old were you at your first use of alcohol: age 15 Progression of Use: first drink I was 15, and I got sick over a couple beers. Then I probably didn't drink for awhile - I never really got smashed. Noticed alcohol use beginning to progress not [place] college days, I would say 2010 years ago (prior to 10 years, just socially ). 2009 I was really depressed - drinking more often and the quantity progressed because of the tolerance. Because of the tolerance I needed more to get the same effect . Peak of Use: I would say it was the worst this time because I've never had a seizure before . Any Current Use: Yes: daily use- 9-12 drinks per occasion- has been going on around 5 years Substance Misuse Reported: Yes Use Disorder Criteria-- eleven criteria Over the last twelve months: Substance is often taken in larger amounts or over a longer period than was intended?Yes- If I'm out with people I don't have any problems having a couple, but when I'm by myself that's when I I'll drink more There is a persistent desire or unsuccessful efforts to cut down or control substance use? Yes A great deal of time is spent in activities necessary to obtain the substance, use the substance, or recover from its effects? Yes Craving or a strong desire or urge to use the substance is present? Yes Recurrent substance use has resulted in a failure to fulfill major role obligations at work, school, or home? Both. It affects work because I call in more often. And it affects my work because I don't have the energy to keep up Substance use has continued despite having persistent or recurrent social or interpersonal problems caused or exacerbated by the effects of the substance? Yes- definitely affects my relationship with my daughters, they worry Important social, occupational, or recreational activities are given up or reduced because of the substance use? Yes Recurrent substance use in situations in which it is physically hazardous? Fall risk Continued substance use despite knowledge of having a persistent or recurrent physical or psychological problem that is likely to have been caused or exacerbated by the substance? Yes Tolerance, as defined by either of the following: A need for markedly increased amounts of the substance to achieve intoxication or desired effect. A markedly diminished effect with continued use of the same amount of the substance. This criterion is not considered to be met for those taking a substance solely under appropriate medical supervision Is the criterion met?Yes Withdrawal, as manifested by either of the following: The characteristic substance withdrawal syndrome. Members of the substance class are taken to relieve or avoid withdrawal symptoms This criterion is not considered to be met for those individuals taking a substance solely under appropriate medical supervision Is the criterion met?Yes Severity determination: Mild: Presence of 2-3 symptoms Moderate: Presence of 4-5 symptoms Severe: Presence of 6 or more symptoms OPIOIDS/HEROIN ETC: Ever Used: Never used this class of substance SEDATIVES/BENZODIAZEPINES: Ever Used: Ne (more content not included)... [facility] 10-20-2023 Note HNO ID: [id number] Author: BIN FUENTES MD Service: Neurology General Author Type: Physician Type: Progress Notes Filed: 10/20/2023 12:29 Note Text: CONSULT PROGRESS NOTES PATIENT NAME: Emely Cleveland SERVICE DATE: 10/20/2023 SERVICE TIME: 12:27 PM ASSESSMENT AND PLAN Syncope vs. Convulsive syncope EEG , no evidence of seizure activity carotid duplex - less than 30% bilateral stenosis R/O Cardiac etiology - cardiology on consult Patient's neuro exam non focal No change in neruo status SUBJECTIVE CHIEF COMPLAINT: Syncope PRIMARY SERVICE: Neurology. MEDICATIONS: Current Facility-Administered Medications Medication Dose Route Frequency traZODone 50 mg tab(s) (DESYREL) 50 mg ORAL AT BEDTIME PRN hydrOXYzine HCl 25 mg tab(s) (ATARAX) 25 mg ORAL QID PRN NaCl 0.9% iv flush bag 20 mL INTRAVENOUS PRN NaCl 0.9% iv infusion 75 mL/hr INTRAVENOUS CONTINUOUS ondansetron 4 mg tab(s) (ZOFRAN) 4 mg ORAL q 6 H PRN Or ondansetron (PF) 4 mg injection (ZOFRAN) 4 mg INTRAVENOUS q 6 H PRN aluminum-magnesium hydroxide-simethicone 200-200-20 mg/5 mL 30 mL 30 mL ORAL DAILY PRN ibuprofen 400 mg tab(s) (MOTRIN) 400 mg ORAL q [address] 40 mg tab(s) (PROTONIX) 40 mg ORAL DAILY (6 AM) tiZANidine 4 mg tab(s) (ZANAFLEX) 4 mg ORAL TID PRN escitalopram oxalate 20 mg tab(s) (LEXAPRO) 20 mg ORAL DAILY acamprosate DR 999 mg tab(s) (CAMPRAL) 999 mg ORAL BID LORazepam 1 mg tab(s) (ATIVAN) 1 mg ORAL q 2 H PRN Or LORazepam 2 mg (ATIVAN) 2 mg ORAL q 2 H PRN Or LORazepam 2 mg (ATIVAN) 2 mg ORAL q 1 H PRN thiamine 100 mg tab(s) (VITAMIN B1) 100 mg ORAL/FEEDING TUBE TID amLODIPine 5 mg tab(s) (NORVASC) 5 mg ORAL DAILY amoxicillin-clavulanate potassium 875 mg tab(s) (AUGMENTIN) 875 mg ORAL BID bisoprolol 2.5 mg tab(s) (ZEBETA) 2.5 mg ORAL DAILY hydroCHLOROthiazide 6.25 mg tab(s) 6.25 mg ORAL DAILY OBJECTIVE PHYSICAL EXAM: Patient Vitals for the past 24 hrs: BP Temp Temp src Pulse Resp SpO2 10/20/23 1054 136/87 37.3 ?C (99.1 ?F) Oral 103 18 93 % 10/20/23 0727 146/86 37.3 ?C (99.1 ?F) Oral 104 18 95 % 10/20/23 0251 143/85 37.6 ?C (99.7 ?F) Oral 102 17 94 % 10/19/23 2348 146/89 37.3 ?C (99.1 ?F) Oral 94 18 96 % 10/19/23 1937 118/85 37 ?C (98.6 ?F) Oral 100 18 99 % 10/19/23 1506 128/80 36.7 ?C (98.1 ?F) Oral 94 17 98 % Body mass index is 28.43 kg/m?. GENERAL: alert, no distress, cooperative NEURO: -Negative:cranial nerves 2-12 intact DATA: Diagnostic tests reviewed. SIGNATURE: Bin Fuentes MD DATE: October 20, 2023 TIME: 12:[address] [facility] 10-20-2023 Note HNO ID: [id number] Author: ZAKIA PEREZ MD Service: Clinical Cardiology Author Type: Physician Type: Progress Notes Filed: 10/20/2023 11:45 Note Text: Cardiology Progress Note Patient Name: Emely Cleveland Today's Date: October 19, 2023 Attending: Tod Wong MD Subjective: Bp improved on norvasc No arrythmia no telemetry Etoh with syncope versus convulsive syncope Eeg and carotid neg Thrombocytosis and LFT secondary to etoh Poorly responsive on CIWA protocol with active alcohol withdrawal Heart rate is improved no active dysrhythmia on monitor Hypertension at present not clear how much blood pressure issues there are at this time we will tell over the course of the admission Heavy chronic alcohol abuse disorder neurology following Echo preserved EKG QTc stable Echocardiogram Impression CONCLUSIONS: - Exam indication: Syncope - The left ventricle is normal in size. Left ventricular systolic function is normal. EF = 60 ? 5% (2D biplane) Indeterminate left ventricular diastolic dysfunction. - The right ventricle is normal in size. Right ventricular systolic function is normal. - There are no significant valvular abnormalities. - The visualized aorta is borderline dilated with a maximal dimension of 3.8 cm. - The patient has not had a prior CC echocardiographic exam for comparison. Assessment/Plan: F10.0 Chronic heavy alcohol abuse admitted with potential seizure in the setting of home alcohol withdrawal on [facility] protocol echocardiogram normal EKG unremarkable only recommendation is to monitor QTc rhythm blood pressure and electrolytes no additional cardiac workup is recommended R55.0 Loss of consciousness most likely seizure from alcohol withdrawal doubt vasovagal or arrhythmogenic basis I10.0 Blood pressure is elevated most likely acute from alcohol withdrawal but bears monitoring to see if there is a need for blood pressure treatment in future Objective: 10/19/23 2348 10/20/23 0251 10/20/23 0727 10/20/23 1054 BP: 146/89 143/85 146/86 136/87 Pulse: 94 102 104 103 Resp: 18 17 18 18 Temp: 37.3 ?C (99.1 ?F) 37.6 ?C (99.7 ?F) 37.3 ?C (99.1 ?F) 37.3 ?C (99.1 ?F) TempSrc: Oral Oral Oral Oral SpO2: 96% 94% 95% 93% Weight: Height: BP 136/87 Pulse 103 Temp 37.3 ?C (99.1 ?F) (Oral) Resp 18 Ht 170.2 cm (5' 7 ) Wt 82.3 kg (181 lb 8 oz) LMP 03/06/2023 (Approximate) SpO2 93% BMI 28.43 kg/m? Intake/Output Summary (Last 24 hours) at 10/20/2023 1143 Last data filed at 10/20/2023 0911 Gross per 24 hour Intake 4118 ml Output -- Net 4118 ml Review of Systems: All other reviewed and negative other than HPI. Physical Exam: General appearance: well appearing, alert, in no acute distress, and well-hydrated, well nourished Head: normal Eyes: Anicteric sclera. Pupils are equally round and reactive to light. Extraocular movements are intact. Oropharynx: Lips, mucosa, and tongue normal, teeth and gums normal, oropharynx normal Lungs: lungs clear to auscultation no wheezing or rhonchi Heart: RRR without murmur, gallop, or rubs. No ectopy, Heart sounds distant, No carotid bruits Abdomen: Normal abdominal exam, Abdomen soft, non-tender. Bowel sounds normal. No masses, organomegaly Extremities: Extremities normal. No deformities, edema, or skin discoloration. Good capillary refill. Labs: Recent Labs 10/20/23 0510 10/19/23 0557 10/18/23 0532 WBC 4.57 4.24 3.46* HB 9.6* 10.5* 10.5* HCT 29.6* 32.4* 31.7* PLT 96* 84* 60* NA 137 139 138 K 4.0 4.3 3.8 CHLOR 103 105 107 CO2 22 23 21* BUN 9 6* 5* CREAT 0.59 0.58 0.57* GLUC 90 107* 112* CA 8.5 9.3 8.4* MG 1.6* 1.5* 2.0 Recent Labs 10/20/23 0510 10/19/23 0557 10/18/23 0532 TPROT 5.5* 5.9* 5.8* ALB 3.3* 3.5* 3.6* ALT 143* 112* 74* AST 233* 193* 104* ALKPHOS 45 44 42 TBILI 0.6 0.7 0.6 Medications: Current Facility-Administered Medications Medication Dose Route Frequency traZODone 50 mg tab(s) (DESYREL) 50 mg ORAL AT BEDTIME PRN hydrOXYzine HCl 25 mg tab(s) (ATARAX) 25 mg ORAL QID PRN NaCl 0.9% iv flush bag 20 mL INTRAVENOUS PRN NaCl 0.9% iv infusion 75 mL/hr INTRAVENOUS CONTINUOUS ondansetron 4 mg tab(s) (ZOFRAN) 4 mg ORAL q 6 H PRN Or ondansetron (PF) 4 mg injection (ZOFRAN) 4 mg INTRAVENOUS q 6 H PRN aluminum-magnesium hydroxide-simethicone 200-200-20 mg/5 mL 30 mL 30 mL ORAL DAILY PRN ibuprofen 400 mg tab(s) (MOTRIN) 400 mg ORAL q [address] 40 mg tab(s) (PROTONIX) 40 mg ORAL DAILY (6 AM) tiZANidine 4 mg tab(s) (ZANAFLEX) 4 mg ORAL TID PRN escitalopram oxalate 20 mg tab(s) (LEXAPRO) 20 mg ORAL DAILY acamprosate DR 999 mg tab(s) (CAMPRAL) 999 mg ORAL BID LORazepam 1 mg tab(s) (ATIVAN) 1 mg ORAL q 2 H PRN Or LORazepam 2 mg (ATIVAN) 2 mg ORAL q 2 H PRN Or LORazepam 2 mg (ATIVAN) 2 mg ORAL q 1 H PRN thiamine (more content not included)... [facility] 10-19-2023 Note HNO ID: [id number] Author: TOD WONG MD Service: General Internal Medicine Author Type: Physician Type: Progress Notes Filed: 10/19/2023 12:48 Note Text: PROGRESS NOTE - INTERNAL MEDICINE PATIENT NAME: Emely Cleveland SERVICE DATE: October 19, 2023 SERVICE TIME: 12:47 PM PCP: Jhoan Roberto MD ADMITTING PHYSICIAN: Tod Wong MD MD INTERVAL HISTORY OF PRESENT ILLNESS: Patient clinically much better #6 seizure patient's pending EEG carotid REVIEW OF SYSTEMS: GENERAL: No weight loss, malaise or fevers RESPIRATORY: Negative for cough, hemoptysis, wheezing, COPD, dyspnea or shortness of breath CARDIOVASCULAR: Negative for chest pain, leg swelling, hypertension, CHF or palpitations GI: No nausea, vomiting, or diarrhea : No history of dysuria, frequency or incontinence PSYCH: Negative for sleep disturbance, mood disorder and recent psychosocial stressors. ENDOCRINE: Negative for cold or heat intolerance, polyuria, polydipsia and goiter All other reviewed and negative other than HPI. PRIOR TO ADMISSION MEDICATIONS: escitalopram oxalate (LEXAPRO) 10 mg tablet, TAKE ONE TABLET BY MOUTH once DAILY, Disp: 90 tablet, Rfl: 3, 10/16/2023 losartan-hydroCHLOROthiazide (HYZAAR) 50-12.5 mg per tablet, TAKE ONE TABLET BY MOUTH EVERY MORNING for blood pressure, Disp: , Rfl: , Past Week cholecalciferol (VITAMIN D3) 1,000 unit tab tablet, Take by mouth once daily., Disp: , Rfl: , Past Week amLODIPine (NORVASC) 5 mg tablet, Take 5 mg by mouth once daily., Disp: , Rfl: 1, Past Week tiZANidine HCl (ZANAFLEX) 4 mg capsule, Take 4 mg by mouth three times a day as needed for muscle spasm., Disp: , Rfl: , Unknown omeprazole (PRILOSEC) 40 mg capsule, TAKE ONE CAPSULE BY MOUTH EVERY DAY before breakfast for 4 weeks then take 1 capsule daily as needed, Disp: , Rfl: , Unknown Cetirizine 10 mg cap, Take by mouth as needed., Disp: , Rfl: , Unknown clobetasol (TEMOVATE) 0.05 % ointment, Apply to affected area 1-2 times per week, Disp: 45 g, Rfl: 5, Unknown fluticasone (FLONASE) 50 mcg/actuation nasal spray, Use 1 [place] in each nostril as needed., Disp: , Rfl: , Unknown SUMATRIPTAN SUCCINATE (IMITREX ORAL), Take by mouth as needed. , Disp: , Rfl: , Unknown bisoprol/hydrochlorothiazide(ZIAC 2.5 MG-6.25 MG TAB), Take one(1) tablet daily., Disp: , Rfl: 0, Not Taking INs AND OUT SUMMARY: Intake/Output Summary (Last 24 hours) at 10/19/2023 1247 Last data filed at 10/19/2023 0911 Gross per 24 hour Intake 840 ml Output -- Net 840 ml PHYSICAL EXAM: Patient Vitals for the past 24 hrs: BP Temp Temp src Pulse Resp SpO2 10/19/23 1219 135/91 36.7 ?C (98.1 ?F) Oral 103 18 97 % 10/19/23 0746 161/87 37.3 ?C (99.1 ?F) Oral 92 18 97 % 10/19/23 0414 149/82 37.1 ?C (98.8 ?F) Oral 94 20 96 % 10/18/23 2219 151/82 37.5 ?C (99.5 ?F) Oral 107 18 97 % 10/18/232001 147/95 37 ?C (98.6 ?F) Oral 92 18 97 % 10/18/23 1618 136/81 37.6 ?C (99.7 ?F) Oral 105 18 97 % 10/18/23 1615 -- -- -- -- -- 96 % GENERAL: Alert, no distress, cooperative SKIN: Skin color, texture, turgor normal. No rashes or lesions. NECK: No jugulovenous distention, No carotid bruits, Carotid pulse normal contour, Supple LUNGS: Lungs clear to auscultation. Good diaphragmatic excursion. CARDIAC: Normal S1 and S2; no rubs, murmurs, or gallops ABDOMEN: Abdomen soft, non-tender. BS normal. No masses or organomegaly. EXTREMETIES: Extremities normal. No deformities, edema, clubbing or skin discoloration. NEURO: Alert, oriented X 3, Cranial nerves II-XII intact, Gait normal. Reflexes normal and symmetric. Sensation grossly intact. PULSES: 2+ radial, 2+ carotid DATA: Recent Labs 10/19/23 0557 10/18/23 0532 10/17/23 0523 WBC 4.24 3.46* 3.58* HB 10.5* 10.5* 11.0* HCT 32.4* 31.7* 32.2* PLT 84* 60* 51* NA 139 138 138 K 4.3 3.8 3.3* CHLOR 105 107 103 CO2 23 21* 21* BUN 6* 5* 6* CREAT 0.58 0.57* 0.58 GLUC 107* 112* 98 CA 9.3 8.4* 8.4* MG 1.5* 2.0 2.0 IMAGING Reviewed and discussed with the patient. IN-PATIENT MEDICATIONS: Current Facility-Administered Medications Medication Dose Route Frequency traZODone 50 mg tab(s) (DESYREL) 50 mg ORAL AT BEDTIME PRN hydrOXYzine HCl 25 mg tab(s) (ATARAX) 25 mg ORAL QID PRN NaCl 0.9% iv flush bag 20 mL INTRAVENOUS PRN NaCl 0.9% iv infusion 75 mL/hr INTRAVENOUS CONTINUOUS ondansetron 4 mg tab(s) (ZOFRAN) 4 mg ORAL q 6 H PRN Or ondansetron (PF) 4 mg injection (ZOFRAN) 4 mg INTRAVENOUS q 6 H PRN aluminum-magnesium hydroxide-simethicone 200-200-20 mg/5 mL 30 mL 30 mL ORAL DAILY PRN ibuprofen 400 mg tab(s) (MOTRIN) 400 mg ORAL q 6 H PRN sodium chloride 0.9 % (flush) 2-10 mL (BD POSIFLUSH) 2-10 mL INTRAVENOUS DIRECTED PRN And perflutren lipid microspheres 1.1 mg/mL 1.3 mL injection (DEFINITY) 1.3 mL INTRAVENOUS DIRECTED PRN pantoprazole DR 40 mg tab(s) (PROTONIX) 40 mg ORAL DAILY (6 AM) tiZANidine 4 mg tab(s) (ZANAFLEX) (more content not included)... [facility] 10-19-2023 Note HNO ID: [id number] Author: BIN FUENTES MD Service: Neurology General Author Type: Physician Type: Progress Notes Filed: 10/19/2023 08:26 Note Text: CONSULT PROGRESS NOTES PATIENT NAME: Emely Cleveland SERVICE DATE: 10/19/2023 SERVICE TIME: 8:26 AM ASSESSMENT AND PLAN Syncope vs. Convulsive syncope EEG , carotid duplex - pending R/O Cardiac etiology Patient's neuro exam non focal No change in neruo status SUBJECTIVE CHIEF COMPLAINT: Syncope PRIMARY SERVICE: Neurology. MEDICATIONS: Current Facility-Administered Medications Medication Dose Route Frequency traZODone 50 mg tab(s) (DESYREL) 50 mg ORAL AT BEDTIME PRN hydrOXYzine HCl 25 mg tab(s) (ATARAX) 25 mg ORAL QID PRN NaCl 0.9% iv flush bag 20 mL INTRAVENOUS PRN NaCl 0.9% iv infusion 75 mL/hr INTRAVENOUS CONTINUOUS ondansetron 4 mg tab(s) (ZOFRAN) 4 mg ORAL q 6 H PRN Or ondansetron (PF) 4 mg injection (ZOFRAN) 4 mg INTRAVENOUS q 6 H PRN aluminum-magnesium hydroxide-simethicone 200-200-20 mg/5 mL 30 mL 30 mL ORAL DAILY PRN ibuprofen 400 mg tab(s) (MOTRIN) 400 mg ORAL q 6 H PRN sodium chloride 0.9 % (flush) 2-10 mL (BD POSIFLUSH) 2-10 mL INTRAVENOUS DIRECTED PRN And perflutren lipid microspheres 1.1 mg/mL 1.3 mL injection (DEFINITY) 1.3 mL INTRAVENOUS DIRECTED PRN pantoprazole DR 40 mg tab(s) (PROTONIX) 40 mg ORAL DAILY (6 AM) tiZANidine 4 mg tab(s) (ZANAFLEX) 4 mg ORAL TID PRN escitalopram oxalate 20 mg tab(s) (LEXAPRO) 20 mg ORAL DAILY acamprosate DR 999 mg tab(s) (CAMPRAL) 999 mg ORAL BID chlordiazePOXIDE 5 mg cap(s) (LIBRIUM) 5 mg ORAL QID LORazepam 1 mg tab(s) (ATIVAN) 1 mg ORAL q 2 H PRN Or LORazepam 2 mg (ATIVAN) 2 mg ORAL q 2 H PRN Or LORazepam 2 mg (ATIVAN) 2 mg ORAL q 1 H PRN thiamine 100 mg tab(s) (VITAMIN B1) 100 mg ORAL/FEEDING TUBE TID amLODIPine 5 mg tab(s) (NORVASC) 5 mg ORAL DAILY amoxicillin-clavulanate potassium 875 mg tab(s) (AUGMENTIN) 875 mg ORAL BID magnesium sulfate iv piggyback in sterile water 2 g 50 mL 2 g INTRAVENOUS ONCE OBJECTIVE PHYSICAL EXAM: Patient Vitals for the past 24 hrs: BP Temp Temp src Pulse Resp SpO2 10/19/23 0746 161/87 37.3 ?C (99.1 ?F) Oral 92 18 97 % 10/19/23 0414 149/82 37.1 ?C (98.8 ?F) Oral 94 20 96 % 10/18/23 2219 151/82 37.5 ?C (99.5 ?F) Oral 107 18 97 % 10/18/23 2002 147/95 37 ?C (98.6 ?F) Oral 92 18 97 % 10/18/23 1618 136/81 37.6 ?C (99.7 ?F) Oral 105 18 97 % 10/18/23 1615 -- -- -- -- -- 96 % 10/18/23 1058 150/91 37.1 ?C (98.8 ?F) Oral 117 17 94 % Body mass index is 28.43 kg/m?. GENERAL: alert, no distress, cooperative NEURO: -Negative:cranial nerves 2-12 intact DATA: Diagnostic tests reviewed. SIGNATURE: Bin Fuentes MD DATE: October 19, 2023 TIME: 8:[address] [facility] 10-19-2023 Note HNO ID: [id number] Author: BIN FUENTES MD Service: Neurology General Author Type: Physician Type: Procedures Filed: 10/26/2023 15:27 Note Text: [facility] - Electroencephalogram EMELY [place] : 1970 AGE: 53 SEX: F CSN: [id number] HOSP C: Medical LOCATION: [facility] ATTENDING PHYSICIAN: Tod Wong M.D. DATE OF PROCEDURE: 10/19/2023 CLINICAL HISTORY: This is an EEG study for a 53-year-old white female with a past medical history significant for alcohol abuse who had been admitted to [facility] with event of transient loss of consciousness. REASON FOR STUDY: Syncope versus convulsive syncope. ALLERGIES: The patient has seasonal allergy. TECHNIQUE: This is a 16-channel EEG on awake and drowsy state. Posterior background rhythm symmetrical and synchronous at the rate of 9-10 hertz. No lateralized epileptiform discharges have been noted. The EEG tracing shows a lot of movement and muscle artifact and some EKG artifact, but good cortical drive to photic stimulation. IMPRESSION: This is a normal EEG. No lateralized epileptiform discharges have been noted. Bin Fuentes M.D. Neurology HK:[id number] [facility] 10-18-2023 Note HNO ID: [id number] Author: BRANDY VARGAS APRN.[employer] Service: Hospital Medicine Author Type: Nurse Practitioner Type: Plan of Care Filed: 10/18/2023 21:47 Note Text: Patient seen and assessed Patient chart reviewed in detail Vital signs, progress notes, and lab results reviewed Case discussed with the HO Case discussed with bedside nurse I was notified by the RN that patient wound on her lip looks infected and has a pus drainage. On assessment, patient sutured wound on her left upper lip is red, swollen, and has a purulent drainage. Suture is still intact. Patient denies any fever or chills Plan -Abscess and wound culture ordered -Patient started on Augmentin 875 mg BID Physical Exam: BP 147/95 Pulse 92 Temp 37 ?C (98.6 ?F) (Oral) Resp 18 Ht 170.2 cm (5' 7 ) Wt 82.3 kg (181 lb 8 oz) LMP 03/06/2023 (Approximate) SpO2 97% BMI 28.43 kg/m? Neuro: AANDOx4. Cardiac: RRR. Lungs: LCTA BL. No respiratory distress. Abdomen: Abd soft, NTTP. Skin: infected lip Vascular: +2 DP/radial pulses BL. GI: Tolerating diet without issue. Extremities: NVI x4 extremities. Recent Labs 10/18/23 0532 10/17/23 0523 10/16/23 0549 WBC 3.46* 3.58* 3.68* HB 10.5* 11.0* 10.7* HCT 31.7* 32.2* 31.8* PLT 60* 51* 68* NA 138 138 135* K 3.8 3.3* 3.3* CHLOR 107 103 97* CO2 21* 21* 24 BUN 5* 6* 12 CREAT 0.57* 0.58 0.65 GLUC 112* 98 124* CA 8.4* 8.4* 8.5 MG 2.0 2.0 2.1 Dispo: Home pending clinical clearance Brandy Vargas APRN.[facility] 10/18/23 9:[address] [facility] 10-18-2023 Note HNO ID: [id number] Author: BUSHRA JACOBS MD Service: General Internal Medicine Author Type: Physician Type: Progress Notes Filed: 10/19/2023 00:03 Note Text: INTERNAL MEDICINE PROGRESS NOTE Name: Emely Cleveland SERVICE DATE: October 18, 2023 ASSESSMENT AND PLAN Principal Problem: Syncope and collapse (POA: Yes) HTN (hypertension) (POA: Yes) Gastroesophageal reflux disease (POA: Yes) Alcohol withdrawal (HCC) (POA: Yes) Assessment AND Plan: Resolved. SUBJECTIVE INTERVAL HPI: no withdrawal symptoms. OBJECTIVE PHYSICAL EXAM: Blood pressure 151/82, pulse 107, temperature 37.5 ?C (99.5 ?F), temperature source Oral, resp. rate 18, height 170.2 cm (5' 7 ), weight 82.3 kg (181 lb 8 oz), last menstrual period 03/06/2023, SpO2 97%., Body mass index is 28.43 kg/m?. GENERAL: Cooperative, pleasant, in no acute distress. NECK: No lymphadenopathy. LUNGS: Lungs clear to auscultation. Good diaphragmatic excursion. CARDIAC: normal S1 and S2; no rubs, murmurs, or gallops ABDOMEN: Abdomen soft, non-tender. BS normal. No masses or organomegaly. EXTREMITIES: No deformities, edema, clubbing or skin discoloration. NEURO: Alert, oriented to person, place, and time. PULSES: 2+ radial 2+ carotid MEDICATION: Current Facility-Administered Medications Medication Dose Route Frequency traZODone 50 mg tab(s) (DESYREL) 50 mg ORAL AT BEDTIME PRN hydrOXYzine HCl 25 mg tab(s) (ATARAX) 25 mg ORAL QID PRN NaCl 0.9% iv flush bag 20 mL INTRAVENOUS PRN NaCl 0.9% iv infusion 75 mL/hr INTRAVENOUS CONTINUOUS ondansetron 4 mg tab(s) (ZOFRAN) 4 mg ORAL q 6 H PRN Or ondansetron (PF) 4 mg injection (ZOFRAN) 4 mg INTRAVENOUS q 6 H PRN aluminum-magnesium hydroxide-simethicone 200-200-20 mg/5 mL 30 mL 30 mL ORAL DAILY PRN ibuprofen 400 mg tab(s) (MOTRIN) 400 mg ORAL q 6 H PRN sodium chloride 0.9 % (flush) 2-10 mL (BD POSIFLUSH) 2-10 mL INTRAVENOUS DIRECTED PRN And perflutren lipid microspheres 1.1 mg/mL 1.3 mL injection (DEFINITY) 1.3 mL INTRAVENOUS DIRECTED PRN pantoprazole DR 40 mg tab(s) (PROTONIX) 40 mg ORAL DAILY (6 AM) tiZANidine 4 mg tab(s) (ZANAFLEX) 4 mg ORAL TID PRN escitalopram oxalate 20 mg tab(s) (LEXAPRO) 20 mg ORAL DAILY acamprosate DR 999 mg tab(s) (CAMPRAL) 999 mg ORAL BID chlordiazePOXIDE 5 mg cap(s) (LIBRIUM) 5 mg ORAL QID LORazepam 1 mg tab(s) (ATIVAN) 1 mg ORAL q 2 H PRN Or LORazepam 2 mg (ATIVAN) 2 mg ORAL q 2 H PRN Or LORazepam 2 mg (ATIVAN) 2 mg ORAL q 1 H PRN thiamine 100 mg tab(s) (VITAMIN B1) 100 mg ORAL/FEEDING TUBE TID amLODIPine 5 mg tab(s) (NORVASC) 5 mg ORAL DAILY amoxicillin-clavulanate potassium 875 mg tab(s) (AUGMENTIN) 875 mg ORAL BID DATA: Malnutrition Diagnosis supported by Registered Dietitian:Moderate Protein-Calorie Malnutrition Based on: Unintentional Weight Loss, Insufficient Energy Intake Assessment: I have reviewed the result of the malnutrition assessment and plan and agree Plan: Diet, Vitamin/Mineral Supplements, Supplements Disposition: Home URINE OUTPUT: Intake/Output Summary (Last 24 hours) at 10/19/2023 0002 Last data filed at 10/18/2023 1800 Gross per 24 hour Intake 840 ml Output -- Net 840 ml LABORATORY: CBC, Coags, BMP, Mg, Phos Recent Labs 10/18/23 0532 10/17/23 0523 10/16/23 0549 WBC 3.46* 3.58* 3.68* HB 10.5* 11.0* 10.7* HCT 31.7* 32.2* 31.8* PLT 60* 51* 68* NA 138 138 135* K 3.8 3.3* 3.3* CHLOR 107 103 97* CO2 21* 21* 24 BUN 5* 6* 12 CREAT 0.57* 0.58 0.65 GLUC 112* 98 124* CA 8.4* 8.4* 8.5 MG 2.0 2.0 2.1 TSH Date Value Ref Range Status 10/16/2023 3.520 0.270 - 4.200 mIU/L Final Liver Function, Amylase, AND Lipase Recent Labs 10/18/23 0532 10/17/23 0523 10/16/23 0549 TPROT 5.8* 6.1* 6.0* ALB 3.6* 4.0 3.9 ALT 74* 74* 80* AST 104* 92* 86* ALKPHOS 42 43 41 TBILI 0.6 0.7 0.8 LIPASE -- -- 85* Cardiac Enzymes ABGs Plan of care discussed with patient and staff. I spent a total of 40 minutes on the date of the service which included preparing to see the patient, [id number] patient care, completing clinical documentation, obtaining and/or reviewing separately obtained history, performing a medically appropriate examination, counseling and educating the patient/family/caregiver, ordering medications, tests, or procedures, communicating with other HCPs (not separately reported), independently interpreting results (not separately reported), communicating results to the patient/family/caregiver, and care coordination (not separately reported). SIGNATURE: Bushra Jacobs MD DATE: October 18, [address] [facility] 10-18-2023 Note HNO ID: [id number] Author: EVETTE HAGAN MD Service: Psychiatry Author Type: Resident Type: Progress Notes Filed: 10/18/2023 13:11 Note Text: CL FOLLOW UP - PSYCHIATRY CONSULTATION PROGRESS NOTE SERVICE DATE: 10/18/2023 SERVICE TIME: 10:08 AM Visit Type: In person PRESENT HISTORY: The patient is first seen resting in her hospital bed in [facility]. Notable labs from 10/17/2023 Elevated GGT = 793 Thrombocytopenia with PLT = 51 Elevated AST/ALT = 92/74 No PRN Ativan required overnight Last CIWA = 1 This AM, elevated BP, other VSS Tolerating medications Appetite improving now that I'm not drinking alcohol Family visited yesterday, enhancing the patients mood Feels much better today Denies cravings for alcohol and symptoms of alcohol withdrawal. Last using dream was 2 nights ago Denies SI/HI/AVH Interested in outpatient IOP for AUD. Plans to do evenings PATIENT DATA: Generalized Anxiety Disorder Scale (MALENA-7) No data to display (0-4) minimal anxiety, (5-9) mild anxiety, (10-14) moderate anxiety, (15-21) severe anxiety Patient Health Questionnaire (PHQ-9) No data to display (0-4) minimal depression, (5-9) mild depression, (10-14) moderate depression, (15-19) moderately severe depression, (20-27) severe depression PROMIS [employer] No data to display MEDICATIONS: Current Facility-Administered Medications Medication Dose Route Frequency Provider Last Rate Last Admin amLODIPine 5 mg tab(s) (NORVASC) 5 mg ORAL DAILY Daniela, Rony, FLOWER PICKER.DRY CURE WORKER 5 mg at 10/18/23 0836 escitalopram oxalate 20 mg tab(s) (LEXAPRO) 20 mg ORAL DAILY Stephanie Mejía APRN.DRY CURE WORKER 20 mg at 10/18/[address] 999 mg tab(s) (CAMPRAL) 999 mg ORAL BID Stephanie Mejía APRN.DRY CURE WORKER 999 mg at 10/18/23 0939 chlordiazePOXIDE 10 mg cap(s) (LIBRIUM) 10 mg ORAL QID Stephanie Mejía APRN.DRY CURE WORKER 10 mg at 10/18/23 0836 Followed by chlordiazePOXIDE 5 mg cap(s) (LIBRIUM) 5 mg ORAL QID Stephanie Mejía APRN.DRY CURE WORKER LORazepam 1 mg tab(s) (ATIVAN) 1 mg ORAL q 2 H PRN Stephanie Mejía APRN.DRY CURE WORKER 1 mg at 10/16/232024 Or LORazepam 2 mg (ATIVAN) 2 mg ORAL q 2 H PRN Stephanie Mejía APRN.CNP Or LORazepam 2 mg (ATIVAN) 2 mg ORAL q 1 H PRN Stephanie Mejía APRN.DRY CURE WORKER thiamine 100 mg tab(s) (VITAMIN B1) 100 mg ORAL/FEEDING TUBE TID Stephanie Mejía APRN.DRY CURE WORKER 100 mg at 10/18/23 0836 traZODone 50 mg tab(s) (DESYREL) 50 mg ORAL AT BEDTIME PRN Irene Glez APRN.CNP hydrOXYzine HCl 25 mg tab(s) (ATARAX) 25 mg ORAL QID PRN Irene Glez APRN.DRY CURE WORKER 25 mg at 10/17/23 1029 NaCl 0.9% iv flush bag 20 mL INTRAVENOUS PRN Irene Glez APRN.DRY CURE WORKER NaCl 0.9% iv infusion 75 mL/hr INTRAVENOUS CONTINUOUS Irene Glez APRN.DRY CURE WORKER 75 mL/hr at 10/17/23 1252 75 mL/hr at 10/17/23 1252 ondansetron 4 mg tab(s) (ZOFRAN) 4 mg ORAL q 6 H PRN Irene Glez APRN.CNP Or ondansetron (PF) 4 mg injection (ZOFRAN) 4 mg INTRAVENOUS q 6 H PRN Irene Glez APRN.DRY CURE WORKER 4 mg at 10/15/23 2255 aluminum-magnesium hydroxide-simethicone 200-200-20 mg/5 mL 30 mL 30 mL ORAL DAILY PRN Irene Glez APRN.CNP ibuprofen 400 mg tab(s) (MOTRIN) 400 mg ORAL q 6 H PRN Irene Glez APRN.DRY CURE WORKER 400 mg at 10/18/23 0522 sodium chloride 0.9 % (flush) 2-10 mL (BD POSIFLUSH) 2-10 mL INTRAVENOUS DIRECTED PRN Irene Glez APRN.CNP And perflutren lipid microspheres 1.1 mg/mL 1.3 mL injection (DEFINITY) 1.3 mL INTRAVENOUS DIRECTED PRN Irene Glez APRN.CNP pantoprazole DR 40 mg tab(s) (PROTONIX) 40 mg ORAL DAILY (6 AM) Irene Glez APRN.DRY CURE WORKER 40 mg at 10/18/23 0518 tiZANidine 4 mg tab(s) (ZANAFLEX) 4 mg ORAL TID PRN Irene Glez APRN.CNP LABS : Lab Results Component Value Date/Time WBC 3.46 (L) 10/18/2023 05:32 AM WBC 12.02 (H) 01/08/2021 06:50 AM RBC 3.14 (L) 10/18/2023 05:32 AM RBC 4.64 01/08/2021 06:50 AM HCT 31.7 (L) 10/18/2023 05:32 AM HCT 42.1 01/08/2021 06:50 AM MCV 101.0 (H) 10/18/2023 05:32 AM MCV 90.7 01/08/2021 06:50 AM MCH 33.4 10/18/2023 05:32 AM MCH 30.8 01/08/2021 06:50 AM MCHC 33.1 10/18/2023 05:32 AM MCHC 34.0 01/08/2021 06:50 AM RDWCV 13.5 10/18/2023 05:32 AM RDWCV 13.2 01/08/2021 06:50 AM PLT 60 (L) 10/18/2023 05:32 AM PLT 312 01/08/2021 06:50 AM NEUTP 37.2 10/15/2023 10:05 AM NEUTP 82.9 01/08/2021 06:50 AM LYMPHP 44.5 10/15/2023 10:05 AM LYMPHP 9.7 01/08/2021 06:50 AM MONOP 12.9 10/15/2023 10:05 AM MONOP 7.2 01/08/2021 06:50 AM EODINP 2.9 10/15/2023 10:05 AM EODINP 0.0 01/08/2021 06:50 AM BASOP 1.4 10/15/2023 10:05 AM BASOP 0.2 01/08/2021 06:50 AM ABSNEUT 1.29 (L) 10/15/2023 10:05 AM ABSNEUT 9.98 (H) 01/08/2021 06:50 AM ABSMONO 0.45 10/15/2023 10:05 AM ABSMONO 0.86 01/08/2021 06:50 AM ABSEOSIN 0.10 10/15/2023 10:05 AM ABSEOSIN <0.03 01/08/2021 06:50 AM ABSBASO 0.05 10/15/2023 10:05 AM ABSBASO <0.03 01/08/2021 06:50 AM GLUC 112 (H) 10/18/2023 05:32 AM GLUC 117 (H) 0 (more content not included)... [facility] 10-17-2023 Note HNO ID: [id number] Author: ZAKIA PEREZ MD Service: Clinical Cardiology Author Type: Physician Type: Progress Notes Filed: 10/17/2023 15:06 Note Text: Cardiology Progress Note Patient Name: Emely Cleveland Today's Date: October 17, 2023 Attending: Tod Wong MD Subjective: Seen yesterday for syncope versus seizures from alcohol withdrawal Poorly responsive on CIWA protocol with active alcohol withdrawal Heart rate is improved no active dysrhythmia on monitor Hypertension at present not clear how much blood pressure issues there are at this time we will tell over the course of the admission Heavy chronic alcohol abuse disorder neurology following Echo preserved EKG QTc stable Echocardiogram Impression CONCLUSIONS: - Exam indication: Syncope - The left ventricle is normal in size. Left ventricular systolic function is normal. EF = 60 ? 5% (2D biplane) Indeterminate left ventricular diastolic dysfunction. - The right ventricle is normal in size. Right ventricular systolic function is normal. - There are no significant valvular abnormalities. - The visualized aorta is borderline dilated with a maximal dimension of 3.8 cm. - The patient has not had a prior CC echocardiographic exam for comparison. Assessment/Plan: F10.0 Chronic heavy alcohol abuse admitted with potential seizure in the setting of home alcohol withdrawal on [facility] protocol echocardiogram normal EKG unremarkable only recommendation is to monitor QTc rhythm blood pressure and electrolytes no additional cardiac workup is recommended R55.0 Loss of consciousness most likely seizure from alcohol withdrawal doubt vasovagal or arrhythmogenic basis I10.0 Blood pressure is elevated most likely acute from alcohol withdrawal but bears monitoring to see if there is a need for blood pressure treatment in future Objective: 10/16/23 2322 10/17/23 0323 10/17/23 0815 10/17/23 1141 BP: 128/87 142/80 153/93 149/95 Pulse: (!) 125 94 91 86 Resp: 18 18 18 18 Temp: 37.5 ?C (99.5 ?F) 36.9 ?C (98.4 ?F) 37.7 ?C (99.9 ?F) 37.5 ?C (99.5 ?F) TempSrc: Oral Oral Oral Oral SpO2: 96% 94% 97% 93% Weight: Height: BP 149/95 Pulse 86 Temp 37.5 ?C (99.5 ?F) (Oral) Resp 18 Ht 170.2 cm (5' 7 ) Wt 82.3 kg (181 lb 8 oz) LMP 03/06/2023 (Approximate) SpO2 93% BMI 28.43 kg/m? Intake/Output Summary (Last 24 hours) at 10/17/2023 1504 Last data filed at 10/16/2023 1859 Gross per 24 hour Intake 240 ml Output -- Net 240 ml Review of Systems: All other reviewed and negative other than HPI. Physical Exam: General appearance: well appearing, alert, in no acute distress, and well-hydrated, well nourished Head: normal Eyes: Anicteric sclera. Pupils are equally round and reactive to light. Extraocular movements are intact. Oropharynx: Lips, mucosa, and tongue normal, teeth and gums normal, oropharynx normal Lungs: lungs clear to auscultation no wheezing or rhonchi Heart: RRR without murmur, gallop, or rubs. No ectopy, Heart sounds distant, No carotid bruits Abdomen: Normal abdominal exam, Abdomen soft, non-tender. Bowel sounds normal. No masses, organomegaly Extremities: Extremities normal. No deformities, edema, or skin discoloration. Good capillary refill. Labs: Recent Labs 10/17/23 0523 10/16/23 0549 10/15/23 1005 WBC 3.58* 3.68* 3.48* HB 11.0* 10.7* 12.0 HCT 32.2* 31.8* 36.4 PLT 51* 68* 100* NA 138 135* 135* K 3.3* 3.3* 3.8 CHLOR 103 97* 93* CO2 21* 24 18* BUN 6* 12 12 CREAT 0.58 0.65 0.70 GLUC 98 124* 125* CA 8.4* 8.5 9.5 MG 2.0 2.1 1.9 Recent Labs 10/17/23 0523 10/16/23 0929 10/16/23 0549 10/15/23 1107 10/15/23 1005 TPROT 6.1* -- 6.0* -- 7.1 ALB 4.0 -- 3.9 -- 4.4 ALT 74* -- 80* -- 108* AST 92* -- 86* -- 108* ALKPHOS 43 -- 41 -- 50 TBILI 0.7 -- 0.8 -- 0.5 LIPASE -- -- 85* -- 88* LACT -- 1.6 1.3 4.7* 5.9* Medications: Current Facility-Administered Medications Medication Dose Route Frequency adult multivitamin 10 mL, folic acid 1 mg in NaCl 0.9% 1,000 mL INTRAVENOUS q 24 HR And magnesium sulfate iv piggyback in sterile water 2 g 50 mL 2 g INTRAVENOUS q 24 HR traZODone 50 mg tab(s) (DESYREL) 50 mg ORAL AT BEDTIME PRN hydrOXYzine HCl 25 mg tab(s) (ATARAX) 25 mg ORAL QID PRN NaCl 0.9% iv flush bag 20 mL INTRAVENOUS PRN NaCl 0.9% iv infusion 75 mL/hr INTRAVENOUS CONTINUOUS ondansetron 4 mg tab(s) (ZOFRAN) 4 mg ORAL q 6 H PRN Or ondansetron (PF) 4 mg injection (ZOFRAN) 4 mg INTRAVENOUS q 6 H PRN aluminum-magnesium hydroxide-simethicone 200-200-20 mg/5 mL 30 mL 30 mL ORAL DAILY PRN ibuprofen 400 mg tab(s) (MOTRIN) 400 mg ORAL q 6 H PRN sodium chloride 0.9 % (flush) 2-10 mL (BD POSIFLUSH) 2-10 mL INTRAVENOUS DIRECTED PRN And perflutren lipid microspheres 1.1 mg/mL 1.3 mL injection (DEFINITY) 1.3 mL INTRAVENOUS DIRECT (more content not included)... [facility] 10-17-2023 Note HNO ID: [id number] Author: TOD WONG MD Service: General Internal Medicine Author Type: Physician Type: Progress Notes Filed: 10/17/2023 10:26 Note Text: PROGRESS NOTE - INTERNAL MEDICINE PATIENT NAME: Emely Cleveland SERVICE DATE: October 17, 2023 SERVICE TIME: 10:25 AM PCP: Jhoan Roberto MD ADMITTING PHYSICIAN: Tod Wong MD MD INTERVAL HISTORY OF PRESENT ILLNESS: Patient seen today patient is restless going through withdrawal chest pain REVIEW OF SYSTEMS: GENERAL: No weight loss, malaise or fevers RESPIRATORY: Cough; dry CARDIOVASCULAR: Negative for chest pain, leg swelling, hypertension, CHF or palpitations GI: No nausea, vomiting, or diarrhea : No history of dysuria, frequency or incontinence PSYCH: Negative for sleep disturbance, mood disorder and recent psychosocial stressors. ENDOCRINE: Negative for cold or heat intolerance, polyuria, polydipsia and goiter All other reviewed and negative other than HPI. PRIOR TO ADMISSION MEDICATIONS: escitalopram oxalate (LEXAPRO) 10 mg tablet, TAKE ONE TABLET BY MOUTH once DAILY, Disp: 90 tablet, Rfl: 3, 10/16/2023 losartan-hydroCHLOROthiazide (HYZAAR) 50-12.5 mg per tablet, TAKE ONE TABLET BY MOUTH EVERY MORNING for blood pressure, Disp: , Rfl: , Past Week cholecalciferol (VITAMIN D3) 1,000 unit tab tablet, Take by mouth once daily., Disp: , Rfl: , Past Week amLODIPine (NORVASC) 5 mg tablet, Take 5 mg by mouth once daily., Disp: , Rfl: 1, Past Week tiZANidine HCl (ZANAFLEX) 4 mg capsule, Take 4 mg by mouth three times a day as needed for muscle spasm., Disp: , Rfl: , Unknown omeprazole (PRILOSEC) 40 mg capsule, TAKE ONE CAPSULE BY MOUTH EVERY DAY before breakfast for 4 weeks then take 1 capsule daily as needed, Disp: , Rfl: , Unknown Cetirizine 10 mg cap, Take by mouth as needed., Disp: , Rfl: , Unknown clobetasol (TEMOVATE) 0.05 % ointment, Apply to affected area 1-2 times per week, Disp: 45 g, Rfl: 5, Unknown fluticasone (FLONASE) 50 mcg/actuation nasal spray, Use 1 [place] in each nostril as needed., Disp: , Rfl: , Unknown SUMATRIPTAN SUCCINATE (IMITREX ORAL), Take by mouth as needed. , Disp: , Rfl: , Unknown bisoprol/hydrochlorothiazide(ZIAC 2.5 MG-6.25 MG TAB), Take one(1) tablet daily., Disp: , Rfl: 0, Not Taking INs AND OUT SUMMARY: Intake/Output Summary (Last 24 hours) at 10/17/2023 1025 Last data filed at 10/16/2023 1859 Gross per 24 hour Intake 240 ml Output -- Net 240 ml PHYSICAL EXAM: Patient Vitals for the past 24 hrs: BP Temp Temp src Pulse Resp SpO2 10/17/23 0815 153/93 37.7 ?C (99.9 ?F) Oral 91 18 97 % 10/17/23322 142/80 36.9 ?C (98.4 ?F) Oral 94 18 94 % 10/16/232321 128/87 37.5 ?C (99.5 ?F) Oral (!) 125 18 96 % 10/16/232320 141/86 37.2 ?C (99 ?F) Oral 103 18 95 % 10/16/232318 139/80 37.2 ?C (99 ?F) Oral 101 18 91 % 10/16/232020 139/92 37.5 ?C (99.5 ?F) Oral (!) 123 18 97 % 10/16/232018 149/91 37.5 ?C (99.5 ?F) Oral 107 18 97 % 10/16/232016 150/87 37.5 ?C (99.5 ?F) Oral 96 18 96 % 10/16/232004 146/99 37.5 ?C (99.5 ?F) Oral (!) 132 18 95 % 10/16/23 1516 154/99 37.3 ?C (99.1 ?F) Oral 105 18 96 % 10/16/23 1141 149/91 37.1 ?C (98.8 ?F) Oral 101 18 100 % GENERAL: Alert, no distress, cooperative SKIN: Skin color, texture, turgor normal. No rashes or lesions. NECK: No jugulovenous distention, No carotid bruits, Carotid pulse normal contour, Supple LUNGS: Positive findings: bronchial breath sounds bibasilar CARDIAC: Normal S1 and S2; no rubs, murmurs, or gallops ABDOMEN: Abdomen soft, non-tender. BS normal. No masses or organomegaly. EXTREMETIES: Extremities normal. No deformities, edema, clubbing or skin discoloration. NEURO: Alert, oriented X 3, Cranial nerves II-XII intact, Gait normal. Reflexes normal and symmetric. Sensation grossly intact. PULSES: 2+ radial, 2+ carotid DATA: Recent Labs 10/17/23 0523 10/16/23 0549 10/15/23 1005 WBC 3.58* 3.68* 3.48* HB 11.0* 10.7* 12.0 HCT 32.2* 31.8* 36.4 PLT 51* 68* 100* NA 138 135* 135* K 3.3* 3.3* 3.8 CHLOR 103 97* 93* CO2 21* 24 18* BUN 6* 12 12 CREAT 0.58 0.65 0.70 GLUC 98 124* 125* CA 8.4* 8.5 9.5 MG 2.0 2.1 1.9 IMAGING Reviewed and discussed with the patient. IN-PATIENT MEDICATIONS: Current Facility-Administered Medications Medication Dose Route Frequency adult multivitamin 10 mL, folic acid 1 mg in NaCl 0.9% 1,000 mL INTRAVENOUS q 24 HR And magnesium sulfate iv piggyback in sterile water 2 g 50 mL 2 g INTRAVENOUS q 24 HR traZODone 50 mg tab(s) (DESYREL) 50 mg ORAL AT BEDTIME PRN hydrOXYzine HCl 25 mg tab(s) (ATARAX) 25 mg ORAL QID PRN NaCl 0.9% iv flush bag 20 mL INTRAVENOUS PRN NaCl 0.9% iv infusion 75 mL/hr INTRAVENOUS CONTINUOUS ondansetron 4 mg tab(s) (ZOFRAN) 4 mg ORAL q 6 H PRN Or ondansetron (PF) 4 mg injection (ZOFRAN) 4 mg INTRAVENOUS q 6 H PRN aluminum-magnesium hydroxide-simethicone 200-200-20 mg/5 mL 30 mL 30 mL ORAL (more content not included)... [facility] 10-16-2023 Note HNO ID: [id number] Author: BRANDEN DE LEON APRN.CNP Service: Critical Care Author Type: Nurse Practitioner Type: Plan of Care Filed: 10/16/2023 06:08 Note Text: Drywall Carrier Coverage Note Patient Name: Emely Cleveland This is a 53 year old female admitted for syncope and alcohol dependence with intoxication seeking detox. Call received from Brandy Mac CNP regarding the patient having a fall, please post fall assessment note for details. Brandy Vital CNP discussed case with this provider. Recommended CT brain and CT maxillofacial. Pt was seen and evaluated at beside. Left lip laceration noted on exam, please see picture below. Discussed case with ED MD Dr. Araujo who recommends laceration repair. MEERA order placed for pt to receive laceration repair in ED after CT scans are completed and may return to the medical floor after laceration repairs are completed. Plan discussed with RN. ED MD, NOM and patient. Left lip laceration s/p fall BP 154/92 Pulse 102 Temp 37.4 ?C (99.3 ?F) (Oral) Resp 17 Ht 170.2 cm (5' 7 ) Wt 82.3 kg (181 lb 8 oz) LMP 03/06/2023 (Approximate) SpO2 96% BMI 28.43 kg/m? Branden De Leon APRN.CNP October 16, 2023 6:[address] [facility] 10-16-2023 Note HNO ID: [id number] Author: BRANDY VARGAS APRN.CNP Service: Hospital Medicine Author Type: Nurse Practitioner Type: Progress Notes Filed: 10/16/2023 05:26 Note Text: POST FALL ASSESSMENT ASSESSMENT DATE: 10/16/2023 ASSESSMENT TIME: 5:00 AM Witnessed: No How did fall occur: Patient was assisted to the bedside commode, PCNA stepped away to grab some wipes, patient got up and fell bumping her mouth on a surface. Mouth Injury and bleeding noted on assessment Location: Patient room Contributing factors: lost balance, shakiness, and unsteady gait from alcohol withdrawal Brief factual description: I was called to the bedside that patient was assisted to the bedside commode, PCNA stepped away to grab some wipes, patient got up and fell bumping her mouth on a surface. Mouth Injury and bleeding noted on assessment. Patient is stable and not on any anticoagulation. She denies any headache, chest pain, hip pain, pain in BUE and BLE. Discussed patient with the HO. CT brain and facial bone ordered Q4 neuro assessment Initial Physical Assessment Injury: Yes Laceration on left gilmer of the mouth Patient hit head: Yes - Initiate Neuro Checks Immediate actions taken: Application of ice and Assisted back to bed / chair Name of LIP notified: discussed the patient with the HO SIGNATURE: Brandy Vagras APRN.DRY CURE WORKER PATIENT NAME: Emely Cleveland DATE: October 16, 2023 TIME: 5:[address] [facility] 10-15-2023 Note HNO ID: [id number] Author: BRANDY VARGAS APRN.DRY CURE WORKER Service: Hospital Medicine Author Type: Nurse Practitioner Type: Progress Notes Filed: 10/15/2023 22:01 Note Text: Chief complaint: syncope, alcohol abuse Interval History: Patient is a 53-year-old female with a past medical history of HTN, HLD, GERD, ETOH abuse, KENDALL on CPAP, and anxiety/Depression who is admitted to [facility] from [place] ED for evaluation of a syncopal episode. Patient reports an increase in her alcohol intake. She reports drinking 2 bottles of alcoholic wine a day. Reports that her last drink was last night around 8 pm. She reports feeling nauseated and not feeling well earlier today. Patient states that her family tried to help her out of the couch earlier today, she had a syncopal episode and was lowered to the ground by her family members. She denies hitting her head and denies any injury. She reports that she was told by her family that she had few minutes of seizures and pooped on herself during the seizure. She denies any history of seizures and syncope. She reports that her family told her that she vomited during the seizure and aspirated some of the vomits. She reports shakiness and feeling unsteady on her feet. She reports nausea and vomiting. She denies any difficult breathing, shortness of breath, chest pain, dizziness, abdominal pain. She denies any visual disturbance. She denies any suicidal ideation. She wishes to participate in detox. Patient is admitted to regular nursing unit for further evaluation and is consulted for detox. Physical Exam: BP 134/78 Pulse 90 Temp 36.6 ?C (97.9 ?F) (Oral) Resp 18 Ht 170.2 cm (5' 7 ) Wt 82.3 kg (181 lb 8 oz) LMP 03/06/2023 (Approximate) SpO2 99% BMI 28.43 kg/m? Neuro: AANDOx4. Cardiac: RRR. Lungs: LCTA BL. No respiratory distress. Abdomen: Abd soft, NTTP. Vascular: +2 DP/radial pulses BL. GI: nausea and vomiting Extremities: shakiness and unsteady gait VTE Prophylaxis: VTE prophylaxis appropriate Assessment AND Plan: Principal Problem: Syncope and collapse/ (POA: Yes) Assessment AND Plan: -Patient presents for syncope and alcohol withdrawal -Reports increase alcohol intake -Lipase of 88, HSTnTx 3 (12, 13, 13), sepsis lactate 5.9, 4.7, ETOH 117, AST 108, ALT 108, ALK Phos 50, K 3.8, CXR shows no acute finding, CT brain (no acute intracranial process), EKG SR, ST elevation Plan -ECHO -Cardiology consult -Telemetry -daily labs Active Problems: Alcohol withdrawal/ seizure due to alcohol withdrawal(HCC) (POA: Yes) Assessment AND Plan: stable -Report increased alcohol intake -Reports seizure during syncopal episode -Reports aspiration of vomits during seizures -Reports nausea and vomiting -Denies any difficulty breathing, shortness of breath, chest pain Plan - CIWA protocol -IV multivitamin -telemetry -antiemetic -PRN valium per CIWA score -Will benefit from a neurology consult for syncope and seizures consult for detox HTN (hypertension) (POA: Yes) Assessment AND Plan: Stable Denies taking any BP medication at home Gastroesophageal reflux disease (POA: Yes) Assessment AND Plan: stable -Protonix 40 mg PO daily Obstructive sleep apnea syndrome (POA: Yes) Assessment AND Plan: stable -CPAP ordered Lactic acidosis (POA: Yes) Assessment AND Plan: stable -Lactic acid in AM Elevated LFTs (POA: Yes) Assessment AND Plan: stable -daily CMP Elevated lipase (POA: Yes) Assessment AND Plan: stable Lipase level in AM HLD (hyperlipidemia) (POA: Yes) Assessment AND Plan: stable Lipid panel in AM Anxiety/depression (POA: Yes) Assessment AND Plan: stable -Continue lexapro 10 mg PO daily -BH consulted Resolved Problems: * No resolved hospital problems. * Dispo: home pending clinical clearance and clearance Brandy Vargas APRN.[facility] 10/15/23 9:08 PM I spent a total of 60 minutes on the date of the service which included preparing to see the patient, [id number] patient care, completing clinical documentation, obtaining and/or reviewing separately obtained history, performing a medically appropriate examination, counseling and educating the patient/family/caregiver, ordering medications, tests, or procedures, communicating with other HCPs (not separately reported), independently interpreting results (not separately reported), communicating results to the patient/family/caregiver, and care coordination (not separately reported). [facility] 10-15-2023 Note HNO ID: [id number] Author: THEE PIERCE RT(Sumit) Service: Radiology Author Type: Technologist Type: Progress Notes Filed: 10/15/2023 11:12 Note Text: Radiology Service Progress Note PATIENT NAME: Emely Cleveland DATE OF SERVICE: October 15, 2023 TIME: 11:11 AM PATIENT IDENTITY VERIFICATION COMPLETED USING TWO (2) IDENTIFIERS: Name and Date of confirmed by patient verbally and Name and Date of confirmed by identification band. FALL SCREENING: Has the patient had 2 falls in the last year or 1 fall with injury or currently using an Ambulatory Assistive Device (Walker, Cane, Wheelchair, Crutches, etc.)? Emergency Room Patient: Screened in ED PATIENT GENDER DATA: Female. status: : No status: NO. PATIENT RELEVANT IMPLANT DATA REVIEWED: Not Applicable PATIENT PRESENTS WITH AN IMPLANTABLE OR ATTACHED BUSHEL WORKER: No RADIOLOGY DEPARTMENT: CT; Exam(s) Completed: Brain PERIPHERAL IV DATA: Not applicable SIGNED BY: RT Glenis(R) October 15, 2023 11:11 AM [facility] 10-15-2023 Note Formatting of this n ote is different from the original. BEHAVIORAL HEALTH BRIEF INTAKE NOTE SERVICE DATE: 10/15/2023 SERVICE TIME: 10:49 AM Emely Cleveland is a 53 year old female brought in to [place] ED from Home by self for alcohol detox. FULL CASE NOT PROCESSED DUE TO: Patient medically admitted DISPOSITION & PLAN: Admit patient: No Discharge Disposition: Medical Admission Disposition Date: 10/15/23 Disposition Time: 1048 SIGNATURE: Terrance Hayes PATIENT NAME: Emely Cleveland DATE: October 15, 2023 TIME: 10:49 AM [place] 10-15-2023 Miscellaneous Notes BEHAVIORAL HEALTH BRIEF INTAKE NOTE SERVICE DATE: 10/15/2023 SERVICE TIME: 10:49 AM Emely Cleveland is a 53 year old female brought in to [place] ED from Home by self for alcohol detox. FULL CASE NOT PROCESSED DUE TO: Patient medically admitted DISPOSITION & PLAN: Admit patient: No Discharge Disposition: Medical Admission Disposition Date: 10/15/23 Disposition Time: 1048 SIGNATURE: Terrance Hayes PATIENT NAME: Emely Cleveland DATE: October 15, 2023 TIME: 10:49 AM documented in this encounter [place] 10-15-2023 Note HNO ID: [id number] Author: BEAU PACHECO RT(R) Service: Radiology Author Type: Technologist Type: Progress Notes Filed: 10/15/2023 10:24 Note Text: Radiology Service Progress Note PATIENT NAME: Emely Cleveland DATE OF SERVICE: October 15, 2023 TIME: 10:24 AM PATIENT IDENTITY VERIFICATION COMPLETED USING TWO (2) IDENTIFIERS: Name and Date of confirmed by patient verbally and Name and Date of confirmed by identification band. FALL SCREENING: Has the patient had 2 falls in the last year or 1 fall with injury or currently using an Ambulatory Assistive Device (Walker, Cane, Wheelchair, Crutches, etc.)? Emergency Room Patient: Screened in ED PATIENT GENDER DATA: Female. status: : No status: NO. PATIENT RELEVANT IMPLANT DATA REVIEWED: Not Applicable PATIENT PRESENTS WITH AN IMPLANTABLE OR ATTACHED BUSHEL WORKER: No RADIOLOGY DEPARTMENT: General X-ray: Exam(s) Completed: Chest X-Ray PERIPHERAL IV DATA: Not applicable SIGNED BY: RT Leena(R) October 15, 2023 10:24 AM [facility] 10-05-2023 Instructions Kelly Amse APRN.[facility] - 10/05/2023 3:53 PM EDT Calcium and Vitamin D Supplementation (from the National Institutes of Health Office of Dietary Supplements 2011) Calcium is required by the body for blood vessel, muscle, hormone and nerve functioning. Most of the body's calcium is stored in the bones and teeth where it supports structure and function. Bone is continuously broken down and reformed. When bone breakdown exceeds formation, especially in postmenopausal women, bone loss can increase the risk of osteoporosis and fractures. In addition to low calcium intake, women who smoke, have a family history of osteoporosis, are thin, or , or who take certain medications such as cancer chemotherapy, seizure mediations and steroids are at increased risk of osteoporosis. The calcium requirements in women change with age. The National Institutes of Health (NIH) recommends: 1000mg elemental calcium for premenopausal women age 19-50 1200mg elemental calcium for postmenopausal women and all women over 50 Milk, yogurt, and cheese are rich natural sources of calcium and are the major food contributors in the [place]. For example, 8oz of milk (whole, lowfat or skim) contains about 300mg calcium, 8oz of yogurt contains 415mg. Nondairy sources include salmon and sardines and vegetables, such as [place] cabbage, kale, and broccoli. Foods fortified with calcium include many fruit juices, tofu and cereals. For more food calcium content information, visit http://ods.od.nih.gov/factsheets/ca lcium. Calcium supplements come in several different forms. Remember that the recommendations are for millgrams (mg) of elemental calcium which may be less than the total weight of the supplement. The amount of elemental calcium is required to be printed on the label. Calcium carbonate is the least expensive form. It must be taken on a full stomach to be properly absorbed. Some patients may experience gas or constipation. Calcium phosphate and calcium citrate may be taken either with or without food and tend to have less side effects but are generally more expensive. Because of its ability to neutralize stomach acid, calcium carbonate is found in some fqjg-pif-qgowaqn antacid products, such as Tums and Rolaids . Depending on its strength, each chewable pill or softchew provides 200 to 400 mg of elemental calcium. The percentage of calcium absorbed depends on the total amount of elemental calcium consumed at one time. Absorption is highest in doses <500mg. So a woman who takes 1,000mg/day of calcium from supplements should split the dose and take 500mg at two separate times during the day. Too much calcium can cause kidney stones, constipation, difficulty absorbing other nutrients and calcium buildup in blood vessels. Women under 50 should not exceed 2500mg/day (2000mg/day for women over 50) of calcium from food and supplements. Excessive alcohol and caffeine intake can inhibit absorption of calcium. Calcium can reduce the absorption of some medications if taken at the same time of day (bisphosphonates, thyroid medication, Phenytoin and other seizure medications, some antibiotics and iron supplements). Vitamin D promotes calcium absorption in the gut and maintains adequate blood levels of calcium and phosphate for normal bone growth and bone remodeling. Vitamin D also helps regulate cell growth as well as nerve, muscle and immune system function. Vitamin D is produced in the skin as a result of ultraviolet sunlight rays and must be altered in the liver and kidney to become its active form. Recommended intake according to the National Institutes of Health is 600 International Units (IU) for girls and women ages 1-70 and 800 IU for women over 70. Very few foods in nature contain vitamin D. The flesh of fatty fish (such as salmon, tuna, and mackerel) and fish liver oils are among the best sources. Small amounts of vitamin D are found in beef liver, cheese, mushrooms and egg yolks. Most people meet at least some of their vitamin D needs through exposure to sunlight. Season, time of day, length of day, cloud cover, smog, skin melanin content, and sunscreen are among the factors that affect UV radiation exposure and vitamin D synthesis. Despite the importance of the sun for vitamin D synthesis, it is prudent to limit exposure of skin to sunlight and avoid tanning beds. UV radiation is a carcinogen responsible for most of the estimated 1.5 million skin cancers that occur annually in the [place]. Lifetime cumulative UV damage to skin is also responsible for some age-associated dryness and other cosmetic changes. In supplements and fortified foods, vitamin D is available in two forms, D2 (ergocalciferol) and D3 (cholecalciferol). The two are equivalent at normal supplement doses. For women who require high supplement doses because of vitamin D deficiency, D3 may work better to raise blood levels. Some medications can prevent proper absorption of Vitamin D. These include laxatives, corticosteroids like prednisone, the seizure drugs phenobarbital and phenytoin, the weight-loss drug orlistat ( Xenical and AlliTM) and the cholesterol-lowering drug cholestyramine (Questran , LoCholest , and Prevalite ). Talk to your doctor about adjusting your recommended daily vitamin D dosage if you take these medications. You should not exceed 4000 mg of vitamin D supplementation daily unless specifically prescribed by your doctor. documented in this encounter [place] 10-05-2023 Note HNO ID: [id number] Author: KELLY AMES APRN.DRY CURE WORKER Service: ? Author Type: Nurse Practitioner Type: Progress Notes Filed: 10/05/2023 16:03 Note Text: S: This is a 53 yr old here for her annual exam without complaints. LMP about 6 months ago, only occasional HF. 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 Last menses: 02/2023 HRT use: no Sexually active: not currently active Last pap test: 2020 H/o abnormal pap: ASCUS with neg HPV 2020 Last mammogram: 05/2023, cat 1 H/o abnormal mammogram: no Family hx breast cancer: no REVIEW OF SYSTEMS: Abdomen: No abdominal pain, nausea, vomiting, diarrhea, or constipation. No bloating, early satiety, indigestion, or increased flatulence. Bladder: No dysuria, gross hematuria, urinary frequency, urinary urgency, or incontinence. Breast: No breast lumps, nipple d/c, overlying skin changes, redness or skin retraction. Allergies and current medication updated:Yes I have reviewed and updated the patient's medical, surgical, and family histories as well as the medication AND allergy lists. O: BP 104/76 Pulse 102 Ht 170.2 cm (5' 7 ) Wt 77 kg (169 lb 12.1 oz) LMP 06/06/2022 (Exact Date) BMI 26.59 kg/m? EXAM: GENERAL: pleasant, female in no apparent distress HEENT: Normocephalic, atraumatic, mucus membranes moist and no lesions NECK: Supple, full range of motion DERMATOLOGY: Normal, without lesions, non-icteric and non-hirsute BREAST: soft, non-tender, symmetric, no dominant mass, normal nipple-areolar complex, no lymphadenopathy and no nipple discharge CHEST: Normal inspiratory effort ABDOMEN: soft, non-tender and no masses PELVIC: Atrophic appearance to external and internal genitalia BIMANUAL: uterus normal size, shape and consistency, no adnexal masses and non-tender RECTOVAGINAL: deferred. NEURO: alert and oriented x 3, exam grossly normal EXTREMITIES: normal ASSESSMENT: Normal HOME CARE SCHEDULER exam Breast cancer screening PLAN: Pap done Encouraged/reviewed BSE Mammogram ordered Recommended 3719-3135 mg calcium intake with Vit D and weight bearing exercises, written info given FU 1 year/prn Kelly Ames, BRAD.DRY CURE WORKER [facility] 10-05-2023 History of Present illness Narrative S: This is a 53 yr old here for her annual exam without complaints. LMP about 6 months ago, only occasional HF. H/o LS, using Clobetasol prn & working well. Last menses: 02/2023 HRT use: no Sexually active: not currently active Last pap test: 2020 H/o abnormal pap: ASCUS with neg HPV 2020 Last mammogram: 05/2023, cat 1 H/o abnormal mammogram: no Family hx breast cancer: no REVIEW OF SYSTEMS: Abdomen: No abdominal pain, nausea, vomiting, diarrhea, or constipation. No bloating, early satiety, indigestion, or increased flatulence. Bladder: No dysuria, gross hematuria, urinary frequency, urinary urgency, or incontinence. Breast: No breast lumps, nipple d/c, overlying skin changes, redness or skin retraction. Allergies and current medication updated:Yes I have reviewed and updated the patient's medical, surgical, and family histories as well as the medication & allergy lists. O: BP 104/76 Pulse 102 Ht 170.2 cm (5' 7 ) Wt 77 kg (169 lb 12.1 oz) LMP 06/06/2022 (Exact Date) BMI 26.59 kg/m EXAM: GENERAL: pleasant, female in no apparent distress HEENT: Normocephalic, atraumatic, mucus membranes moist and no lesions NECK: Supple, full range of motion DERMATOLOGY: Normal, without lesions, non-icteric and non-hirsute BREAST: soft, non-tender, symmetric, no dominant mass, normal nipple-areolar complex, no lymphadenopathy and no nipple discharge CHEST: Normal inspiratory effort ABDOMEN: soft, non-tender and no masses PELVIC: Atrophic appearance to external and internal genitalia BIMANUAL: uterus normal size, shape and consistency, no adnexal masses and non-tender RECTOVAGINAL: deferred. NEURO: alert and oriented x 3, exam grossly normal EXTREMITIES: normal ASSESSMENT: Normal HOME CARE SCHEDULER exam Breast cancer screening PLAN: Pap done Encouraged/reviewed BSE Mammogram ordered Recommended 7541-3395 mg calcium intake with Vit D and weight bearing exercises, written info given FU 1 year/prn Kelly Ames APRN.DRY CURE WORKER documented in this encounter [place] 09-30-2023 History of Present illness Narrative Subjective Emely Cleveland is a 53 y.o. female who presents for the following: Skin Check (annual). Skin Cancer Screening She has a history of heavy sun exposure. She is in the sun infrequently. She uses sunscreen occasionally. She reports no skin symptoms. Her moles are not changing. Spots that concern her: None Patient has a history of: SK Acne Objective Well appearing patient in no apparent distress; mood and affect are within normal limits. A full examination was performed including scalp, head, eyes, ears, nose, lips, neck, chest, axillae, abdomen, back, buttocks, bilateral upper extremities, bilateral lower extremities, hands, feet, fingers, toes, fingernails, and toenails. All findings within normal limits unless otherwise noted below. Scattered bowie-red papule(s). All nevi were symmetric brown macules without atypia on dermoscopy. Scattered cook macules in sun-exposed areas. Stuck on verrucous, cook-brown papules and plaques. Assessment/Plan Hemangioma of skin Melanocytic nevus, unspecified location The ABCDEs of melanoma and warning signs of non-melanoma skin cancer were discussed with patient and patient expressed understanding. Sun protection and use of at least SPF 30 discussed with patient. Pt instructed to reapply every 2 hours. Lentigo The ABCDEs of melanoma and warning signs of non-melanoma skin cancer were discussed with patient and patient expressed understanding. Sun protection and use of at least SPF 30 discussed with patient. Pt instructed to reapply every 2 hours. Seborrheic keratosis The nature of the diagnosis was explained to patient. ISK x [address] x 2 cycles on mid forehead and R upper and mid back. Wound care d/w pt and pt expressed understanding. Follow up in 1 year or sooner as needed. documented in this encounter [facility] Work Phone: 09-25-2023 History of Present illness Narrative Subjective Patient ID: Emely Cleveland is a 53 y.o. female who presents for Forms/questionnaires (Disability paperwork) and Back Pain (Upper and lower back pain. Wants PT order). Here for follow-up Last here just after Thanksgiving At that time efforts were made to get her towards rehab with her alcoholism As it turns out she did proceed through that but did not stick with the IOP program. There has been some scheduling conflicts with all of this, and though she was off alcohol for several months, she has been back on alcohol. She is back to using alcohol daily. She brings in paperwork today for short-term disability for both depression and back pain She was last at work on 09/16/2023. Her back pain intensified so she did not go to work on 09/17/2023. She has had low back pain for 2 weeks or so. She has been working with a chiropractor. Using Advil 2 pills twice daily. No recent trauma or injury. No sciatic symptoms down her legs. No urinary symptoms. No abdominal discomfort she has both low back pain as well as some upper scapular discomfort [facility] and anticipates x-rays then At home, her situation is changed-her daughter, along with her and 15-vqbth-skr son have all moved in with her. For the most part it is working well though sometimes she does not sleep through the night with a little 1 She is going to AA meetings-she talks to her sponsor, Jennifer daily Her weight is down-she does not feel like she is eating quite as much Her daughter sent in a note concerned about her alcohol issues, memory lapses and cognitive issues, back pain, and depression. Current Outpatient Medications Medication Instructions bisoproloL-hydrochlorothiazide (Ziac) 2.5-6.25 mg tablet oral cholecalciferol (Vitamin D-3) 25 MCG (1000 UT) tablet oral escitalopram (LEXAPRO) 10 mg, oral, Daily fluticasone (Flonase) 50 mcg/actuation nasal spray 2 sprays, Each Nostril, Every evening, Shake gently. Before first use, prime pump. After use, clean tip and replace cap. magnesium oxide (Mag-Ox) 400 mg (241.3 mg magnesium) tablet oral omeprazole (PRILOSEC) 40 mg, oral, 2 times daily predniSONE (Deltasone) 10 mg tablet Take 4 tablets once daily with food, for 2 days, then 3 tablets once daily for 2 days, then 2 tablets once daily for 2 days, and then 1 tablet daily for 2 days, then discontinue SUMAtriptan (Imitrex) 50 mg tablet oral tiZANidine (ZANAFLEX) 4 mg, oral, Every 6 hours PRN tretinoin (Retin-A) 0.025 % cream Topical, Nightly, Pea sized amount to entire face 1-2 nights weekly; work up to nightly as tolerated vitamin B complex (Vitamins B Complex) tablet 1 tablet, oral, Daily Review of Systems Objective BP 90/70 Pulse 64 Temp 36.1 C (97 F) Ht 1.702 m (5' 7 ) Wt 78 kg (172 lb) SpO2 94% BMI 26.94 kg/m Physical Exam Constitutional: General: She is not in acute distress. Appearance: Normal appearance. She is overweight. She is not ill-appearing, toxic-appearing or diaphoretic. Comments: She appeared a bit disheveled-with stains on her clothing HENT: Head: Normocephalic and atraumatic. Right Ear: Tympanic membrane normal. Left Ear: Tympanic membrane normal. Nose: Nose normal. Eyes: General: No scleral icterus. Extraocular Movements: Extraocular movements intact. Conjunctiva/sclera: Conjunctivae normal. Pupils: Pupils are equal, round, and reactive to light. Cardiovascular: Rate and Rhythm: Normal rate and regular rhythm. Pulses: Normal pulses. Heart sounds: Normal heart sounds. No murmur heard. Pulmonary: Effort: Pulmonary effort is normal. No respiratory distress. Breath sounds: Normal breath sounds. No stridor. No wheezing. Abdominal: General: Abdomen is flat. Bowel sounds are normal. There is no distension. Palpations: Abdomen is soft. There is no mass. Tenderness: There is no abdominal tenderness. There is no guarding. Musculoskeletal: General: No swelling, tenderness or deformity. Normal range of motion. Cervical back: Normal range of motion and neck supple. No tenderness. Lymphadenopathy: Cervical: No cervical adenopathy. Skin: General: Skin is warm and dry. Findings: No lesion or rash. Neurological: General: No focal deficit present. Mental Status: She is alert and oriented to person, place, and time. Cranial Nerves: No cranial nerve deficit. Motor: No weakness. Psychiatric: Mood and Affect: Mood normal. Behavior: Behavior normal. Thought Content: Thought content normal. Judgment: Judgment normal. Assessment/Plan Problem List Items Addressed This Visit ICD-10-CM Elevated LFTs R79.89 Low vitamin D level R79.89 Essential hypertension with goal blood pressure less than 130/85 - Primary I10 Prediabetes R73.03 Alcoholism (Multi) F10.20 Relevant Orders Referral to Addiction Recovery Services Other Visit Diagnoses Codes Abdominal pain, RUQ (right upper quadrant) R10.11 Reactive depression F32.9 Relevant Orders Referral to Psychiatry Memory changes R41.3 Relevant Orders Referral to Neurology Dyspepsia R10.13 Relevant Medications omeprazole (PriLOSEC) [address] capsule Spasm of muscle of lower back M62.830 Relevant Medications tiZANidine (Zanaflex) 4 mg capsule predniSONE (Deltasone) 10 mg tablet We spoke for over 40 minutes, over half the time counseling Portions of this encounter note have been copied from my previous note dated 03/18/23 , which have been updated where appropriate and all reflect my current medical decision making from today. Alcoholism-we spoke about multiple issues including the need for immediate evaluation-she will contact the addiction recovery service for further options regarding inpatient care with detox and subsequent treatment accordingly. Alcoholics Anonymous program reviewed in detail and she understands that ultimately this needs to be a long-term goal as well complete abstinence from alcohol. She has at least 3 brothers with alcoholism, and perhaps a paternal cousin and she does not know any others in her family tree with alcoholism. 10/11 Last here just after Thanksgiving At that time efforts were made to get her towards rehab with her alcoholism As it turns out she did proceed through that but did not stick with the IOP program. There has been some scheduling conflicts with all of this, and though she was off alcohol for several months, she has been back on alcohol. She is back to using alcohol daily. I repeatedly and adamantly told her that she must get off alcohol forever. Encouraged her to eyak back with the addiction recovery service team to set up another rehab plan followed by IOP. She will continue working with her AA sponsor, Jennifer who she speaks with daily. Occupational concerns-if necessary-I told her I would complete the FMLA accordingly. She will keep me posted about these details and potential dates off work or time needed for IOP options 10/11-we spoke at length-she requests short-term disability-filled out the paperwork for her to be off 8 weeks, from 09/17/2023 until 11/25/2023. She understands that if this needs to be extended-this will need to be done by one of her specialists Cognitive/memory concerns-she needs to stop using alcohol she understands. Neurology consultation also for further evaluation Weight loss concern-her weight is down 18 pounds in 6 months. She admits that she is not eating that much with her alcoholism. Coincidentally abdominal ultrasound tomorrow. She will work to consume a healthy diet. She will advance her PPI. She will notify me with any persistent abdominal symptoms Low blood pressure/history of hypertension-previously borderline control with bisoprolol and losartan/HCTZ. 10/11-now with 18 pound weight loss over the last 6 months-her blood pressure is frankly low. She will discontinue losartan/HCTZ, check labs and continue bisoprolol/HCTZ 2.5/6.25. She will follow-up soon to recheck this Situational depression/work stress-Seasonal affective disorder/Anxiety/insomnia- presently taking Lexapro, the latter prescribed by her waist presser, Tracy Collier. 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 As it turns out she changed jobs in July 2021- and with the time off was able to visit her 2 brothers. New job is far less stressful she is walking more and with better sleep with the CPAP feels much better. She is excited with new grandchild - a boy, born just after 2021- Feliciano. She will continue the Lexapro tablet daily 03/12-alcoholism has intensified this February with daily use. She is seeing her counselor every 2 to 3 weeks. She will continue her Lexapro as she enters treatment for alcoholism-obviously difficult situation but she is coping. 10/11-depression remains an issue-she is on Lexapro. Work is very exceedingly stressful. Also, her daughter, along with her and 91-zplje-alc son have moved in with her. For the most part it is working well though she is not sleeping as well at night. Psychiatry consultation ordered. She will get this set up accordingly Elevated LFTs-viral hepatitis serology negative. Clearly this seems related temporally to her alcohol intake-will reassess LFTs in 8 weeks Right upper quadrant duaf-wqtvowk-kdh has discussed this with Dr. Johnson in general surgery. Right upper abdominal wall discomfort-noted with position changes. No obvious hernia on exam 10/10. I asked her to meet with her surgeon, Dr. Johnson for further evaluation. Right upper abdominal wall lipoma- removed July [address] Johnson. She will use a heating pad for the residual soreness. Pathology-simple lipoma recent ultrasound in December did not show any specific findings. Discussed the possibility of hepatomegaly and capsular enlargement. Nevertheless she will watch for symptoms and follow-up if pain worsens or changes Addendum-will advance PPI to twice daily for the possibility of alcoholic gastritis symptoms 10/11-she will advance PPI to twice daily, do the ultrasound coincidentally is scheduled for tomorrow and work to abstain from alcohol Fatty liver-evaluated with a elastic ultrasound 01/10-no evidence of fibrosis Gallbladder polyp-she will do a 6-month follow-up ultrasound to follow this Prediabetes/elevated weight-we will continue to follow 03/12-A1c 5.5%, BMI 29.8-both improved Dyslipidemia-goal LDL under 100. 03/12-LDL 174, actually the best she has had in some time. For now we will continue to follow. Statin not an option with her LFT issue Hx Near syncopal episode- 12/24/21 at approximately 7:30 am. Reports feeling hot prior to episode. Paramedics checked vitals. BP 90/50. Blood sugar 146. Discussed daily nutritional habits and how to optimize caloric intake. Labs and echo nondiagnostic. Symptoms improved with reducing losartan/HCTZ No recurrence Mild dilation ascending aorta-noted on 02/08 echo. Will consider reevaluation in 12 to 18 months. history of chest pain syndrome - negative stress echo August 2017. Not problematic presently Exercise routine-strongly encouraged walking and other forms of exercise to help with daily stress reduction Seasonal congestion-she will continue Flonase and Zyrtec. Peripheral neuropathy- ongoing for several months. Distal part of feet, bilaterally. Left more noticeable than right. History and exam suggest early peripheral sensory neuropathy. Considering her relatively young age, neurology consultation recommended. CPAP treatment for sleep apnea- severe-she will follow up with Dr. Bell and continue Flonase nightly Tolerating CPAP better than expected-and its helping with more energy during the day. She will see her back as directed Sleep follow-up with Dr. Bueno scheduled 12/11 Slightly elevated TSH- her mother had hypothyroidism and her maternal aunt had what sounds like Graves'. she will reassess thyroid studies in 12 weeks TSH okay 09/08 Gynecologic care- reminded patient to follow with her waist presser for gynecologic exams regularly as recommended by her waist presser- Dr. Perez; - annually. She actually follows with her nurse practitioner Kelly Ames She sees her each December. Left breast cyst-annual mammogram-evaluated with diagnostic mammogram and ultrasound 01/10-ordered by HOME CARE SCHEDULER. She states her next mammogram is scheduled for late April 2023 per HOME CARE SCHEDULER Sleeplessness-sleeping much better with a new job, less stress and CPAP helping Headaches/ history of stable pineal cyst-not problematic. She is off daily medications and no longer follows with Dr. Curtis. Hasn't needed Sumatriptan for a long time-but this is occasionally used-so refill requested/provided to help her with her goal of remaining headache free Migraines still occasionally occur. Using sumatriptan perhaps once a month presently on average Back pain/history of thoracic spasms/diffuse myalgias/right sacroiliac discomfort- she's visited w/ chiropractor several times in spring. stretches, yoga and exercises suggested, but she admits this hasn't been easy to continue. Tension / prolonged desk sitting is main issue she feels. In the past, she followed with a holistic MD, who does acupuncture monthly. She will f/u with her chiropractor, Dr. Tellez. Encouraged heat therapy in the interim. Working with PT at [facility]-back is much better she notes with stretching routine and dry needling in early 2022. 10/11-her back is been much worse over the last 2 weeks-no obvious trauma-she has been working with her chiropractor without improvement. Her back pain intensified and she could not work starting 09/17/2023. [facility]. She will prednisone taper and tizanidine understanding this may cause drowsiness First [facility] DJD- she will use caution with regular activity History of right wrist ganglion removal/ 2 BB sized cysts at the base of her right second and third finger- palmar aspect-she is right-handed and these are occasionally sore. She will see Dr. Andrade in the hand clinic. Tubular adenomatous colon polyps - f/u colonoscopy updated 03/12; next in 5 yrs -February 2028 Vitamin D deficiency- encouraged patient to continue vitamin D daily as ordered. Will consider vitamin D level regularly. Hx LASIK eye surgery - eye appt in early 2015 w/ [facility] optometry w/ normal vision, but she notes focus sometimes takes a bit of time. She uses reading glasses. last visit w/ Dr. August Dec. Needs updating. She will setup appt soon. Dental [id number]- UTD; Dermatology care-she will see her test bore helper annually to follow her skin exam. She will setup appointment soon. Dermatology appointment scheduled for later in September 2023 Flu shot encouraged- updated December 2022 Tdap booster updated 10/22. Covid vaccination series completed. Covid Booster completed. Additional booster shot updated 02/09. Follow-up in 2 weeks, sooner as needed Charting was completed using voice recognition technology and may include unintended errors. documented in this encounter [facility] Work Phone: 05-24-2023 Miscellaneous Notes May 25, 2023 PID: [id number] Emely Cleveland [address] [place] [address] Dear Ms. Cleveland, We are pleased to inform you that the results of your recent breast imaging exam on 05/22/2023 are normal. Early detection of cancer is very important. We also understand recommendations regarding breast cancer screening are controversial. Please discuss with your primary care provider which strategy is best for you and whether a mammogram is right for you. Your imaging studies and report will be kept on file at [facility] as part of your permanent medical record and are available for your continuing care. Thank you for allowing us to help in meeting your health care needs. Sincerely, Dr. Sierra Interpreting Radiologist [facility] (Normal over 40) documented in this encounter [facility] 05-22-2023 Note HNO ID: [id number] Author: KELLIE SIMONS [employer] Service: ? Author Type: Sheather Type: Progress Notes Filed: 05/22/2023 14:58 Note Text: Radiology Service Progress Note PATIENT NAME: Emely Cleveland DATE OF SERVICE: May 22, 2023 TIME: 2:58 PM PATIENT IDENTITY VERIFICATION COMPLETED USING TWO (2) IDENTIFIERS: Name and Date of confirmed by patient verbally. FALL SCREENING: Has the patient had 2 falls in the last year or 1 fall with injury or currently using an Ambulatory Assistive Device (Walker, Cane, Wheelchair, Crutches, etc.)? No PATIENT GENDER DATA: Female. status: : No status: NO. PATIENT RELEVANT IMPLANT DATA REVIEWED: Yes PATIENT PRESENTS WITH AN IMPLANTABLE OR ATTACHED BUSHEL WORKER: No RADIOLOGY DEPARTMENT: Mammography PERIPHERAL IV DATA: Not applicable SIGNED BY: Kellie Simons [employer] May 22, 2023 2:58 PM [facility] 05-22-2023 History of Present illness Narrative Radiology Service Progress Note PATIENT NAME: Emely Cleveland DATE OF SERVICE: May 22, 2023 TIME: 2:58 PM PATIENT IDENTITY VERIFICATION COMPLETED USING TWO (2) IDENTIFIERS: Name and Date of confirmed by patient verbally. FALL SCREENING: Has the patient had 2 falls in the last year or 1 fall with injury or currently using an Ambulatory Assistive Device (Walker, Cane, Wheelchair, Crutches, etc.)? No PATIENT GENDER DATA: Female. status: : No status: NO. PATIENT RELEVANT IMPLANT DATA REVIEWED: Yes PATIENT PRESENTS WITH AN IMPLANTABLE OR ATTACHED BUSHEL WORKER: No RADIOLOGY DEPARTMENT: Mammography PERIPHERAL IV DATA: Not applicable SIGNED BY: Kellie Simons [employer] May 22, 2023 2:58 PM documented in this encounter [facility] 04-09-2023 History of Present illness Narrative Images from the original note were not included. Acute Injury New Patient Visit CC: Chief Complaint Patient presents with Left Hand - Pain HPI: Emely is a 52 y.o.female who presents today with new complaints of pain and discomfort to the ulnar side of the left hand and towards the left thumb after fall. She was found to have a proximal fifth metacarpal fracture was seen and evaluated at one of her local urgent cares and was asked to follow-up with orthopedics. She presents here today for further evaluation. She denies any numbness tingling or burning has pain to the ulnar side more so than on the thumb side of the wrist. She does have some bruising and swelling about the thumb. She denies any forearm pain denies any elbow pain. Has a history of a prior surgery to the right hand but no prior injury or trauma to the left hand. She is right-hand dominant. Review of Systems GENERAL: Negative for malaise, significant weight loss, fever MUSCULOSKELETAL: See HPI NEURO: Negative for numbness / tingling Past Medical History Past Medical History: Diagnosis Date Abnormal findings on diagnostic imaging of skull and head, not elsewhere classified 05/23/[address] scan, head Allergic Anxiety Anxiety disorder, unspecified Anxiety Arthritis Body mass index (BMI) 33.0-33.9, adult 04/25/2020 BMI 33.0-33.9,adult Chest pain, unspecified 03/23/2019 Chest pain syndrome Chronic sinusitis, unspecified Sinusitis Colon polyp Depression Elevation of levels of liver transaminase levels 10/27/2018 ALT (SGPT) level raised GERD (gastroesophageal reflux disease) Headache Hypertension Nasal congestion Nasal congestion Other conditions influencing health status Puffy Eyelids Other conditions influencing health status 08/06/2017 Cyst of finger Other general symptoms and signs 05/10/2014 Neck complaint Other specified abnormal findings of blood chemistry 03/22/2019 TSH elevation Other specified symptoms and signs involving the circulatory and respiratory systems 03/25/2014 Throat fullness Pain in right knee 10/31/2018 Acute pain of right knee Personal history of other diseases of the musculoskeletal system and connective tissue 03/07/2015 History of backache Personal history of other diseases of the nervous system and sense organs 09/02/2021 History of obstructive sleep apnea Personal history of other diseases of the respiratory system 01/01/2022 History of acute sinusitis Personal history of other diseases of urinary system 03/25/2014 History of hematuria Personal history of other endocrine, nutritional and metabolic disease 09/16/2018 History of hyperlipidemia Personal history of other endocrine, nutritional and metabolic disease 05/09/2015 History of dehydration Personal history of other specified conditions 01/24/2021 History of snoring Personal history of other specified conditions 08/02/2015 History of headache Personal history of other specified conditions 05/09/2021 History of bruising easily Personal history of other specified conditions 05/31/2021 History of insomnia Personal history of other specified conditions 10/05/2015 History of insomnia Personal history of other specified conditions 05/08/2015 History of nausea Pure hypercholesterolemia, unspecified Pure hypercholesterolemia Sleep apnea, unspecified 03/07/2021 Sleep disorder breathing Strain of muscle and tendon of unspecified wall of thorax, initial encounter 07/30/2014 Strain of thoracic region Substance abuse (CMS/HCC) Syncope and collapse 03/07/2022 Near syncope Unspecified fracture of right toe(s), initial encounter for closed fracture 07/11/2020 Toe fracture, right Unspecified injury of unspecified foot, initial encounter 06/16/2020 Toe injury Unspecified injury of unspecified foot, initial encounter 07/30/2014 Foot injury Medication review Medication Documentation Review Audit Reviewed by Jarod Ghosh MD (Physician) on 04/09/23 at 1640 Medication Order Taking? Sig Documenting Provider Last Dose Status bisoproloL-hydrochlorothiazide (Ziac) 2.5-6.25 mg tablet [id number] No Take by mouth. Historical ProviderMD Taking Active cholecalciferol (Vitamin D-3) 25 MCG (1000 UT) tablet [id number] No Take by mouth. Historical ProviderMD Taking Active escitalopram (Lexapro) 10 mg tablet [id number] No Take 1 tablet (10 mg) by mouth once daily. Historical ProviderMD Taking Active fluticasone (Flonase) 50 mcg/actuation nasal spray [id number] No Administer 2 sprays into each nostril once daily in the evening. Shake gently. Before first use, prime pump. After use, clean tip and replace cap. Jhoan Roberto MD Taking Active losartan-hydrochlorothiazide (Hyzaar) 50-12.5 mg tablet [id number] No Take 1 tablet by mouth once daily. Jhoan Roberto MD Taking Active magnesium oxide (Mag-Ox) 400 mg (241.3 mg magnesium) tablet [id number] No Take by mouth. Naresh Mckeon MD Taking Active omeprazole (PriLOSEC) [address] capsule [id number] Take 1 capsule (40 mg) by mouth 2 times a day. Jhoan Roberto MD Active SUMAtriptan (Imitrex) 50 mg tablet [id number] No Take by mouth. Historical ProviderMD Taking Active tretinoin (Retin-A) 0.025 % cream [id number] No Apply topically once daily at bedtime. Pea sized amount to entire face 1-2 nights weekly; work up to nightly as tolerated Huong Landis MD Taking Active vitamin B complex (Vitamins B Complex) tablet [id number] No Take 1 tablet by mouth once daily. Historical MD Linda Taking Active Allergies Allergies Allergen Reactions Pollen Extracts Other Social History Social History Socioeconomic History Marital status: Spouse name: Not on file Number of children: Not on file Years of education: Not on file Highest education level: Not on file Occupational History Not on file Tobacco Use Smoking status: Some Days Packs/day: 0.00 Years: 2.00 Additional pack years: 0.00 Total pack years: 0.00 Types: Cigarettes Start date: 02/17/2021 Last attempt to quit: 04/20/2022 Years since quittin.9 Smokeless tobacco: Never Tobacco comments: I have a cigarette every once in a while Substance and Sexual Activity Alcohol use: Yes Alcohol/week: 14.0 standard drinks of alcohol Types: 14 Glasses of wine per week Drug use: Never Sexual activity: Not Currently Partners: Female control/protection: Condom Male Other Topics Concern Not on file Social History Narrative Not on file Social Determinants of Health Financial Resource Strain: Not on file Food Insecurity: Not on file Transportation Needs: Not on file Physical Activity: Not on file Stress: Not on file Social Connections: Not on file Intimate Partner Violence: Not on file Housing Stability: Not on file Surgical History Past Surgical History: Procedure Laterality Date OTHER SURGICAL HISTORY 09/18/2021 Cyst excision OTHER SURGICAL HISTORY 04/07/2016 Corneal LASIK Bilateral OTHER SURGICAL HISTORY 04/07/2016 Wrist Surgery Physical Exam: GENERAL: Patient is awake, alert, and oriented to person place and time. Patient appears well nourished and well kept. Affect Calm, Not Acutely Distressed. HEENT: Normocephalic, Atraumatic, EOMI CARDIOVASCULAR: Hemodynamically stable. RESPIRATORY: Normal respirations with unlabored breathing. NEURO: Gross sensation intact to the upper extremities bilaterally. Extremity: Left hand and wrist exam demonstrates multiple areas of soft tissue swelling and bruising she is exquisite tenderness palpation of the base of the fifth metacarpal. She also has pain discomfort at the snuffbox towards the base of the thumb and at the proximal first phalanx. There is no obvious IP pain there is some subtle laxity with firm endpoint at the first MCP joint. When compared to the contralateral limb this is noted to be nearly equal in symmetric. Forearm compartment soft compressible distal pulses and sensation are intact. Limited wrist flexion extension secondary to pain. Elbow is nontender globally. Diagnostics: Previous images reviewed consistent with proxima nondisplaced fifth metacarpal fracture. Procedure: Short arm cast application Procedures Assessment: Problem List Items Addressed This Visit None Visit Diagnoses Closed nondisplaced fracture of base of fifth metacarpal bone of left hand, initial encounter Plan: At this time we will offer the patient a short arm cast here today. Will provide a thumb spica with limited IP motion due to the pain about the thumb. We initially can provide the patient with pain medication however [place] review indicated that patient was on naltrexone, thus our opioid pain management is contraindicated. Patient can utilize Tylenol ice elevation and rest for pain control or she may discuss with her other providers the ability to offer her additional medication. We will see her back in 10 days for repeat evaluation at that time we will plan on removing the cast to allow for repeat thumb exam. We will likely transition back into another short arm cast and then obtain repeat x-rays prior to discharge, 3 views of the left hand at that time. No orders of the defined types were placed in this encounter. At the conclusion of the visit there were no further questions by the patient/family regarding their plan of care. Patient was instructed to call or return with any issues, questions, or concerns regarding their injury and/or treatment plan described above. 04/09/23 at 4:43 PM - Jarod Ghosh MD Office: This note was prepared using voice recognition software. The details of this note are correct and have been reviewed, and corrected to the best of my ability. Some grammatical errors may persist related to the [employer] software. documented in this encounter [facility] Work Phone: 03-06-2023 History of Present illness Narrative Subjective Patient ID: Emely Cleveland is a 52 y.o. female who presents for FMLA. Virtual or Telephone Consent An interactive audio and video telecommunication system which permits real time communications between the patient (at the originating site) and provider (at the distant site) was utilized to provide this telehealth service. Verbal consent was requested and obtained from Emely Cleveland on this date, 03/06/23 for a telehealth visit. Patient requested FMLA forms be completed as required by employer. Her migraines have become more challenging at times which make it difficult to focus, read or use the computer. Review of Systems Objective There were no vitals taken for this visit. Physical Exam Vitals reviewed. Constitutional: Appearance: Normal appearance. Comments: Well-appearing adult in no distress, alert, appearance at baseline Virtual exam showed patient to be alert active and otherwise appropriate Spoke normally, with speech at baseline, without evidence of respiratory distress Facial exam, unremarkable with no obvious eye findings Skin exam without any obvious rash or notable findings Mental status exam-appropriate without any worrisome findings, with normal mood and thought content Neurological: Mental Status: She is alert. Assessment/Plan Problem List Items Addressed This Visit ICD-10-CM Dyslipidemia, goal LDL below 100 - Primary E78.5 Relevant Orders Comprehensive Metabolic Panel Lipid Panel TSH with reflex to Free T4 if abnormal Fatty liver K76.0 Relevant Orders Comprehensive Metabolic Panel Headache, migraine G43.909 Essential hypertension with goal blood pressure less than 130/85 I10 Prediabetes R73.03 Relevant Orders Hemoglobin A1C Migraines-more noticeable with stress and other triggers. Spoke with patient regarding FMLA option for difficult situations where her migraine has been triggered which makes it difficult to read or work in the computer or communicate with others effectively. FMLA form completed accordingly and sent as directed. She will check with her chart to confirm that this has been received and processed and is in effect accordingly. She will continue to minimize triggers as she is able to and use the sumatriptan. Hypertension-she will continue medications we will check labs before follow-up Prediabetes/dyslipidemia-she will check labs before follow-up Follow-up as scheduled later this month, sooner with concerns documented in this encounter [facility] Work Phone: 03-04-2023 History of Present illness Narrative Subjective Emely Cleveland is a 52 y.o. female who presents for the following: Acne and Suspicious Skin Lesion. Acne Symptoms have been ongoing for about several months. The acne is primarily located on the face. The lesions are described as white heads. Previous treatment has included clindamycin with good improvement. Skin Lesion She describes it as a spot, that is located on her face. It was first noticed several years ago. It has been causing no skin symptoms and is not changing. Objective Well appearing patient in no apparent distress; mood and affect are within normal limits. A focused examination was performed including face and arms. All findings within normal limits unless otherwise noted below. Scattered comedones and inflammatory papulopustules. Forehead, DAREK Shoulders Stuck on verrucous, cook-brown papules and plaques. Assessment/Plan Acne vulgaris Will plan to start tretinoin in addition to clindamycin. Patient encouraged to use tretinoin 1-2 nights weekly at first, then work up to nightly to avoid dryness. Can also use OTC noncomedogenic moisturizer to help avoid dryness. Counseled patient that it make take up to 3 months to see results. Pt agrees with plan as above. Can consider spironolactone if no improvement. tretinoin (Retin-A) 0.025 % cream Apply topically once daily at bedtime. Pea sized amount to entire face 1-2 nights weekly; work up to nightly as tolerated Seborrheic keratosis Forehead, DAREK Shoulders Irritated seborrheic keratoses on forehead and DAREK shoulders that we froze per patient request. 3 lesions x 3 [address]2 per pt request; wound care d/w pt and pt expressed understanding. Follow up in May 2023 for recheck and FBSE. Scribe Attestation By signing my name below, I Alva Oneyda, Scribe attest that this documentation has been prepared under the direction and in the presence of Huong Landis MD. documented in this encounter [facility] Work Phone: 02-23-2023 Hospital Discharge instructions Milton Farrell MD - 02/23/2023 12:30 PM EST Scopalamine patch may stay on for 72 hrs. Remove patch, discard away form pets, children. Do not touch eyes! Wash hands thoroughly Patient Instructions after a Colonoscopy The anesthetics, sedatives or narcotics which were given to you today will be acting in your body for the next 24 hours, so you might feel a little sleepy or groggy. This feeling should slowly wear off. Carefully read and follow the instructions. You received sedation today: - Do not drive or operate any machinery or power tools of any kind. - No alcoholic beverages today, not even beer or wine. - Do not make any important decisions or sign any legal documents. - No over the counter medications that contain alcohol or that may cause drowsiness. - Do not make any important decisions or sign any legal documents. While it is common to experience mild to moderate abdominal distention, gas, or belching after your procedure, if any of these symptoms occur following discharge from the GI Lab or within one week of having your procedure, call the [facility] to be advised whether a visit to your nearest Urgent Care or Emergency Department is indicated. Take this paper with you if you go. - If you develop an allergic reaction to the medications that were given during your procedure such as difficulty breathing, rash, hives, severe nausea, vomiting or lightheadedness. - If you experience chest pain, shortness of breath, severe abdominal pain, fevers and chills. -If you develop signs and symptoms of bleeding such as blood in your spit, if your stools turn black, tarry, or bloody - If you have not urinated within 8 hours following your procedure. - If your IV site becomes painful, red, inflamed, or looks infected. If you received a biopsy/polypectomy/sphincterotomy the following instructions apply below: __ Do not use Aspirin containing products, non-steroidal medications or anti-coagulants for one week following your procedure. (Examples of these types of medications are: Advil, Arthrotec, Aleve, Coumadin, Ecotrin, Heparin, Ibuprofen, Indocin, Motrin, Naprosyn, Nuprin, Plavix, Vioxx, and Voltarin, or their generic forms. This list is not all-inclusive. Check with your physician or pharmacist before resuming medications.) __ Eat a soft diet today. Avoid foods that are poorly digested for the next 24 hours. These foods would include: nuts, beans, lettuce, red meats, and fried foods. Start with liquids and advance your diet as tolerated, gradually work up to eating solids. __ Do not have a Barium Study or Enema for one week. Your physician recommends the additional following instructions: -You have a contact number available for emergencies. The signs and symptoms of potential delayed complications were discussed with you. You may return to normal activities tomorrow. -Resume your previous diet. -Continue your present medications. -We are waiting for your pathology results. -Your physician has recommended a repeat colonoscopy (date to be determined after pending pathology results are reviewed) for surveillance based on pathology results. -The findings and recommendations have been discussed with you. -The findings and recommendations were discussed with your family. - Please see Medication Reconciliation Form for new medication/medications prescribed. If you experience any problems or have any questions following discharge from the GI Lab, please call: Nurse Signature Date Patient/Responsible Democrat Signature Date documented in this encounter [facility] Work Phone: 02-23-2023 Hospital Discharge instructions Milton Farrell MD - 02/23/2023 12:30 PM EST Scopalamine patch may stay on for 72 hrs. Remove patch, discard away form pets, children. Do not touch eyes! Wash hands thoroughly Patient Instructions after a Colonoscopy The anesthetics, sedatives or narcotics which were given to you today will be acting in your body for the next 24 hours, so you might feel a little sleepy or groggy. This feeling should slowly wear off. Carefully read and follow the instructions. You received sedation today: - Do not drive or operate any machinery or power tools of any kind. - No alcoholic beverages today, not even beer or wine. - Do not make any important decisions or sign any legal documents. - No over the counter medications that contain alcohol or that may cause drowsiness. - Do not make any important decisions or sign any legal documents. While it is common to experience mild to moderate abdominal distention, gas, or belching after your procedure, if any of these symptoms occur following discharge from the GI Lab or within one week of having your procedure, call the [facility] to be advised whether a visit to your nearest Urgent Care or Emergency Department is indicated. Take this paper with you if you go. - If you develop an allergic reaction to the medications that were given during your procedure such as difficulty breathing, rash, hives, severe nausea, vomiting or lightheadedness. - If you experience chest pain, shortness of breath, severe abdominal pain, fevers and chills. -If you develop signs and symptoms of bleeding such as blood in your spit, if your stools turn black, tarry, or bloody - If you have not urinated within 8 hours following your procedure. - If your IV site becomes painful, red, inflamed, or looks infected. If you received a biopsy/polypectomy/sphincterotomy the following instructions apply below: __ Do not use Aspirin containing products, non-steroidal medications or anti-coagulants for one week following your procedure. (Examples of these types of medications are: Advil, Arthrotec, Aleve, Coumadin, Ecotrin, Heparin, Ibuprofen, Indocin, Motrin, Naprosyn, Nuprin, Plavix, Vioxx, and Voltarin, or their generic forms. This list is not all-inclusive. Check with your physician or pharmacist before resuming medications.) __ Eat a soft diet today. Avoid foods that are poorly digested for the next 24 hours. These foods would include: nuts, beans, lettuce, red meats, and fried foods. Start with liquids and advance your diet as tolerated, gradually work up to eating solids. __ Do not have a Barium Study or Enema for one week. Your physician recommends the additional following instructions: -You have a contact number available for emergencies. The signs and symptoms of potential delayed complications were discussed with you. You may return to normal activities tomorrow. -Resume your previous diet. -Continue your present medications. -We are waiting for your pathology results. -Your physician has recommended a repeat colonoscopy (date to be determined after pending pathology results are reviewed) for surveillance based on pathology results. -The findings and recommendations have been discussed with you. -The findings and recommendations were discussed with your family. - Please see Medication Reconciliation Form for new medication/medications prescribed. If you experience any problems or have any questions following discharge from the GI Lab, please call: Nurse Signature Date Patient/Responsible Democrat Signature Date documented in this encounter [facility] Work Phone: 10-17-2022 History of Present illness Narrative Subjective Patient ID: Emely Cleveland is a 52 y.o. female who presents for Follow-up. Here for 6-month follow-up. For the most part feels well without illnesses or injuries. Her back is much better with physical therapy Still having pain right abdominal area with position changes, near the site where she had a lipoma removed last year so Review of Systems Objective BP 126/86 (BP Location: Left arm, Patient Position: Sitting, BP Cuff Size: Adult) Pulse 98 Temp 36.5 C (97.7 F) Resp 16 Wt 88.3 kg (194 lb 9.6 oz) SpO2 99% BMI 30.48 kg/m Physical Exam Constitutional: Appearance: Normal appearance. HENT: Head: Normocephalic and atraumatic. Right Ear: Tympanic membrane normal. Left Ear: Tympanic membrane normal. Nose: Nose normal. Eyes: General: No scleral icterus. Extraocular Movements: Extraocular movements intact. Conjunctiva/sclera: Conjunctivae normal. Pupils: Pupils are equal, round, and reactive to light. Cardiovascular: Rate and Rhythm: Normal rate and regular rhythm. Pulses: Normal pulses. Heart sounds: Normal heart sounds. No murmur heard. Pulmonary: Effort: Pulmonary effort is normal. No respiratory distress. Breath sounds: Normal breath sounds. No stridor. No wheezing. Abdominal: General: Abdomen is flat. Bowel sounds are normal. There is no distension. Palpations: Abdomen is soft. There is no mass. Tenderness: There is no abdominal tenderness. There is no guarding. Comments: She located the discomfort in the right mid abdominal wall area near the rectus sheath area no masses no pain on palpation when laying supine, when standing no obvious hernia on Valsalva maneuver or coughing Musculoskeletal: General: No swelling, tenderness or deformity. Normal range of motion. Cervical back: Normal range of motion and neck supple. No tenderness. Lymphadenopathy: Cervical: No cervical adenopathy. Skin: General: Skin is warm and dry. Findings: No lesion or rash. Neurological: General: No focal deficit present. Mental Status: She is alert and oriented to person, place, and time. Cranial Nerves: No cranial nerve deficit. Motor: No weakness. Psychiatric: Mood and Affect: Mood normal. Behavior: Behavior normal. Thought Content: Thought content normal. Judgment: Judgment normal. Assessment/Plan Problem List Items Addressed This Visit None Hx Near syncopal episode- 12/24/21 at approximately 7:30 am. Reports feeling hot prior to episode. Paramedics checked vitals. BP 90/50. Blood sugar 146. Discussed daily nutritional habits and how to optimize caloric intake. Labs and echo nondiagnostic. Symptoms improved with reducing losartan/HCTZ No recurrence Mild dilation ascending aorta-noted on 02/08 echo. Will consider reevaluation in 12 to 18 months. history of chest pain syndrome - negative stress echo August 2017. Not problematic presently Hypertension/dyslipidemia/elevated weight-she is on medication at age 35, around 2004 but lost weight and was able to discontinue this. 2 brothers and her father have had hypertension Blood pressure improved with medication and weight loss Prediabetes/elevated weight-she remembers with her first she gained a lot of weight and had some glucose concerns. She understands weight loss will help improve this. She will continue this effort and reassess before follow-up Remarkably A1c improved from 5.9% 01/08 and 5.5% 09/08. 04/10 5.6%. Elevated weight with BMI was at 31- we spoke at length. She has lost some 30 pounds around 2002, with exercising 5 days weekly and eating 6 rather small meals daily. She remembers that plan quite well. It worked for her quite well. Encouraged her towards efforts towards consistent exercise and dietary discipline and caloric restriction. She will consider options and plot out and new planned in the new year aiming towards her birthday as a goal to get significant weight off, She now has a smart watch. She is tracking her walking and is walking more. Included in this is the [employer] calorie counting jo-ann. Encouraged her to follow her calories and then set a goal, 1 pound a week for 12 weeks Exercise routine-using her smart watch to close the circles and walk more-each day-encouraged her to continue efforts Postnasal drip/scratchy throat/occasional cough-recurrent since the fall. Recently on antibiotics for sinusitis. She will restart her allergy meds and call if persistent postnasal drip not improved Seasonal congestion-she will continue Flonase and Zyrtec. Complains of sinus pressure/allergies. Prescribed antibiotics. She will take probiotics with her antibiotics and continue her allergy plan. Follow up with concerns. Recent scratchy throat and productive cough. Encouraged increasing Flonase use to BID. Right upper abdominal wall discomfort-noted with position changes. No obvious hernia on exam 10/10. I asked her to meet with her surgeon, Dr. Johnson for further evaluation Right upper abdominal wall lipoma- removed July [address] Johnson. She will use a heating pad for the residual soreness. Pathology-simple lipoma Elevated LFTs- fatty liver appearance on ultrasound-she will recheck after limiting alcohol. She understands weight loss is important Follow-up LFTs 09/08 normalized, 03/11 transaminases slightly elevated we will follow. Fatty liver on 06/11 abdominal ultrasound 10/10-with slightly elevated AST and ALT noted in December and March 2022, will reassess labs and check liver elastogram Peripheral neuropathy- ongoing for several months. Distal part of feet, bilaterally. Left more noticeable than right. History and exam suggest early peripheral sensory neuropathy. Considering her relatively young age, neurology consultation recommended. Sleep apnea- severe-she will follow up with Dr. Bell and continue Flonase nightly Tolerating CPAP better than expected-and its helping with more energy during the day. She will see her back in February 2022 Slightly elevated TSH- her mother had hypothyroidism and her maternal aunt had what sounds like Graves'. she will reassess thyroid studies in 12 weeks TSH okay 09/08 Gynecologic care- reminded patient to follow with her waist presser for gynecologic exams regularly as recommended by her waist presser- Dr. Perez; - annually. She actually follows with her nurse practitioner Kelly Ames She sees her each December. Annual mammogram- updated August.She has had left breast since she states and has a 6-month follow-up scan. Bilateral diag She will go back to annual surveillance 01/10-ordered by HOME CARE SCHEDULER. Sleeplessness-sleeping much better with a new job, less stress and CPAP helping Headaches/ history of stable pineal cyst-not problematic. She is off daily medications and no longer follows with Dr. Curtis. Hasn't needed Sumatriptan for a long time-but this is occasionally used-so refill requested/provided to help her with her goal of remaining headache free Migraines still occasionally occur. Using sumatriptan perhaps once a month presently on average History of thoracic spasms/diffuse myalgias/right sacroiliac discomfort- she's visited w/ chiropractor several times in spring. stretches, yoga and exercises suggested, but she admits this hasn't been easy to continue. Tension / prolonged desk sitting is main issue she feels. In the past, she followed with a holistic MD, who does acupuncture monthly. She will f/u with her chiropractor, Dr. Tellez. Encouraged heat therapy in the interim. Working with PT at [facility]-back is much better she notes with stretching routine and dry needling in early 2022. First [facility] DJD- she will use caution with regular activity History of right wrist ganglion removal/ 2 BB sized cysts at the base of her right second and third finger- palmar aspect-she is right-handed and these are occasionally sore. She will see Dr. Andrade in the hand clinic. Colon polyps - f/u colonoscopy updated 11/04; next in 5 yrs - 11/09 10/10-colonoscopy ordered Vitamin D deficiency- encouraged patient to continue vitamin D daily as ordered. Will consider vitamin D level regularly. Hx LASIK eye surgery - eye appt in early 2015 w/ [facility] optometry w/ normal vision, but she notes focus sometimes takes a bit of time. She uses reading glasses. last visit w/ Dr. August Dec. Needs updating. She will setup appt soon. Dental [id number]- UTD; Dermatology care-she will see her test bore helper annually to follow her skin exam. She will setup appointment soon. Situational depression/work stress-Seasonal affective disorder/Anxiety/insomnia- presently taking Lexapro, the latter prescribed by her waist presser, Tracy Collier. 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 As it turns out she changed jobs in July 2021- and with the time off was able to visit her 2 brothers. New job is far less stressful she is walking more and with better sleep with the CPAP feels much better. She is excited with new grandchild - a boy, born just after 2021- Feliciano. She will continue the Lexapro tablet daily Flu shot encouraged- updated 02/08 Tdap booster updated 02/08. Covid vaccination series completed. Covid Booster completed. Additional booster shot updated 02/08. Follow-up in 6 months, sooner as needed Charting was completed using voice recognition technology and may include unintended errors. documented in this encounter [facility] Work Phone: 08-18-2022 Miscellaneous Notes Refill request for escitalopram 10 mg tablets Last Rx given 04/25/2022 MARISA 07/07/2022 NOV None Thank you, Krystal Anders LPN documented in this encounter [place] 07-07-2022 History of Present illness Narrative S: This is a 51yr old , here for her annual exam without complaints. H/o heavy menses, benign EMB 2019. Adenomyosis on US. Still coming once a month, not as heavy or as long, taking NSAIDS continuously. H/o LS, using Clobetasol weekly & working well. Last pap: 2020 H/o abnormal pap: ASCUS with neg HPV 2020 Last mammogram: 2021 H/o abnormal mammogram: no Family hx breast cancer: no Currently sexually active: not currently active H/o STDs: no Contraception: none Menses: Timing: reg q month Length: 4 days Flow: moderate Dysmenorrhea: no REVIEW OF SYSTEMS: Abdomen: No abdominal pain, nausea, vomiting, diarrhea, or constipation. No bloating, early satiety, indigestion, or increased flatulence. Bladder: No dysuria, gross hematuria, urinary frequency, urinary urgency, or incontinence. Breast: No breast lumps, nipple d/c, overlying skin changes, redness or skin retraction. Allergies and current medication updated:Yes I have reviewed and updated the patient's medical, surgical, and family histories as well as the medication & allergy lists. O: BP 104/73 Pulse 97 Ht 5' 7.5 (1.715 m) Wt 194 lb (88 kg) LMP 06/06/2022 (Exact Date) BMI 29.94 kg/m EXAM: GENERAL: pleasant, female in no apparent distress HEENT: Normocephalic, atraumatic, mucus membranes moist and no lesions NECK: Supple and full range of motion DERMATOLOGY: Normal, without lesions, non-icteric and non-hirsute BREAST: soft, non-tender, symmetric, no dominant mass, normal nipple-areolar complex, no lymphadenopathy and no nipple discharge CHEST: Normal inspiratory effort ABDOMEN: soft, non-tender and no masses PELVIC: external genitalia normal, normal Bartholin's glands, urethra, [place]'s glands, no vulvar lesions, no cervical lesions, good vaginal support, physiologic discharge present, normal appearing perineal body and perianal region BIMANUAL: uterus normal size, shape and consistency, no adnexal masses and non-tender RECTOVAGINAL: deferred. NEURO: alert and oriented x3 and alert and oriented x3,exam grossly non-focal EXTREMITIES: normal ASSESSMENT: Normal HOME CARE SCHEDULER exam Breast cancer screening PLAN: Pap up to date Reviewed/Encouraged BSE Mammogram ordered Refill Clobetasol not needed at this time FU 1 year/prn Kelly Ames APRN.DRY CURE WORKER Sciatic issues and stomach upset. No fever. No concerns Irene Amaya I documented in this encounter [place] 06-18-2022 Note Plan Progress with functional strength as tolerated with respect to tissue healing. Manual therapy PRN to improve/maintain ROM, prevent adhesion, reduce pain. Assessment Patient educated in dry needling precautions, indications, and contraindications. Patient is aware of the risks and benefits of procedure and wishes to have it performed. No adverse reaction to the dry needling noted. Patient notes improved pain levels resultant from activities in therapy session. Improved tissue quality noted as well as body mechanics demonstrated after cueing and corrections. Patient continues to require active therapy to progress functional capabilities with decreasing pain levels and improving mechanics with functional activities including progression of Home exercise program. Tolerance to today's treatment was good. muscle fatigue noted. Patient appears motivated and compliant this date, demonstrating a working understanding of principals instructed and home program. Adult Risk Screening There are no spiritual/cultural practices/values/needs that are important to know Initial Fall Risk Screening: EMELY has not fallen in the last 6 months. Insurance Insurance reviewed Visit number: 5 20% coinsurance, $400 ded, 25 Visits/yr Subjective Patient reports:. this week not as good as the previous week. May be because we did not do the dry needling. the pain does seem to be concentrating toward the spine. Treatment Time in clinic started at 745 Time in clinic ended at 835 Total time in clinic is 50 minutes. Therapeutic exercise (40207): timed minutes 15 . UBE standing 2/2 biofeedback with core stabs Access Code: [email or web address] URL: [email or web address] Date: 06/11/2022 Prepared by: Rocael Alicea Exercises Correct Standing Posture Correct Seated Posture Lying Prone - 5 x daily - 7 x weekly - 2- 3 minutes hold Static Prone on Elbows - 5 x daily - 7 x weekly - 10 reps - 10 hold Prone Push Ups on Forearms - 1-2 x daily - 7 x weekly - 10 reps - 10 hold Standing Lumbar Extension - 5 x daily - 7 x weekly - 10 reps Supine Sciatic Nerve Ulysses - 1-2 x daily - 7 x weekly - 20 reps Supine Transversus Abdominis Bracing - Hands on Stomach - 3 x daily - 7 x weekly - 10 reps - 10 hold Supine Pelvic Floor Contraction - 3 x daily - 7 x weekly - 10 reps - 10 hold Supine Multifidus with Heel Press - 3 x daily - 7 x weekly - 10 reps - 10 hold Bent Knee Fallouts with Alternating Legs - 1 x daily - 7 x weekly - 10 reps Supine June - 1 x daily - 7 x weekly - 10 reps Supine Transversus Abdominis Bracing with Leg Extension - 1 x daily - 7 x weekly - 10 reps Supine Heel Slides - 1 x daily - 7 x weekly - 10 reps . Manual Therapy (27844): timed minutes 30 . Iliacus/psoas release DTM gluteus medius, piriformis STM/DTM LS paraspinals with biofreeze UPA [id number] Right IDN [id number]. 'Scores and Scales' Signatures Electronically signed by : Rocael Alicea, PT; Jun 18 2022 9:03AM EST (Author) [employer] 04-25-2022 Miscellaneous Notes Pt is requesting refill of Lexapro MARISA 02/07/2021 NOV 07/04/2022 Thank you, Krystal Anders LPN documented in this encounter [place] 02-18-2022 History of Present illness Narrative Patient is here for an annual wellness visit. In general, has felt well since last visit. New concerns include:The patient reports that she recently welcomed a grandson in late February.The patient is compliant with the current medication regimen.She reports that her CPAP use is presently on hold as she had been suffering from a sinus illness.She admits scratchy right interior, lower throat area.She admits a right, mid thoracic pain.She admits right SI joint pain that radiates to the right gluteal area. She has been stretching via [employer] videos but no relief.Her work chair is sufficient but she is thinking of replacing, she adds. She reports that the pains sometimes wake her at nights and she takes Advil to take the edge off.She admits a productive cough with phlegm. She has been using Flonase daily.She admits recent knee pains that have since resolved. [id number] Work Phone: 01-08-2022 History of Present illness Narrative Radiology Service Progress Note PATIENT NAME: Emely Cleveland DATE OF SERVICE: January 08, 2022 TIME: 3:34 PM PATIENT IDENTITY VERIFICATION COMPLETED USING TWO (2) IDENTIFIERS: Name and Date of confirmed by patient verbally and Name and Date of confirmed by identification band. FALL SCREENING: Has the patient had 2 falls in the last year or 1 fall with injury or currently using an Ambulatory Assistive Device (Walker, Cane, Wheelchair, Crutches, etc.)? No PATIENT GENDER DATA: Female. status: : No status: NO. PATIENT RELEVANT IMPLANT DATA REVIEWED: Not Applicable RADIOLOGY DEPARTMENT: Mammography PERIPHERAL IV DATA: Not applicable SIGNED BY: Rojas Zendejas January 08, 2022 3:34 PM documented in this encounter [place] 12-24-2021 History of Present illness Narrative This is an Established Care Patient presenting today for an office visit.The patient reports that she had an episode of fainting on 12/24/21 at approximately 7:30 am.She reports that she felt it coming on and she began to feel hot. Paramedics were call and when they arrived. they took her vitals and her BP was 90+/50+. She states that her blood sugar level was 163 as she had just had a coke.She admits sinus congestion.She also admits numbness in the distal part of her feet, bilaterally. She states that her symptoms usually start in the morning with the left foot more noticeable than the right. She reports that her symptoms have been ongoing for a few months.She reports that she has been eating bananas, avocados before bed time and taking OTC magnesium to try and alleviate her symptoms. She has also been wearing flats to avoid injury.She states that she is compliant with her current medication regimen and she is taking a B complex, Vitamin C and Zinc supplements.She takes her sumatriptan as needed for migraine and reports that she had a migraine on 12/23/21.She normally does not eat breakfast but by mid morning, she would have cheese and nuts. By lunch, it would leftovers or a salad. She usually have a protein at dinner. Her exercise involves her simply closing the circles on her apple watch.She usually gets home around 4 pm and has dinner at approximately 6 pm. She does not snack in the nights usually. She is up 5 am and is at work by 7 am. [facility] Work Phone: 12-24-2021 History of Present illness Narrative This is an Established Care Patient presenting today for an office visit.The patient reports that she had an episode of fainting on 12/24/21 at approximately 7:30 am.She reports that she felt it coming on and she began to feel hot. Paramedics were call and when they arrived. they took her vitals and her BP was 90+/50+. She states that her blood sugar level was 163 as she had just had a coke.She admits sinus congestion.She also admits numbness in the distal part of her feet, bilaterally. She states that her symptoms usually start in the morning with the left foot more noticeable than the right. She reports that her symptoms have been ongoing for a few months.She reports that she has been eating bananas, avocados before bed time and taking OTC magnesium to try and alleviate her symptoms. She has also been wearing flats to avoid injury.She states that she is compliant with her current medication regimen and she is taking a B complex, Vitamin C and Zinc supplements.She takes her sumatriptan as needed for migraine and reports that she had a migraine on 12/23/21.She normally does not eat breakfast but by mid morning, she would have cheese and nuts. By lunch, it would leftovers or a salad. She usually have a protein at dinner. Her exercise involves her simply closing the circles on her apple watch.She usually gets home around 4 pm and has dinner at approximately 6 pm. She does not snack in the nights usually. She is up 5 am and is at work by 7 am. [facility] Work Phone: 12-24-2021 History of Present illness Narrative This is an Established Care Patient presenting today for an office visit.The patient reports that she had an episode of fainting on 12/24/21 at approximately 7:30 am.She reports that she felt it coming on and she began to feel hot. Paramedics were call and when they arrived. they took her vitals and her BP was 90+/50+. She states that her blood sugar level was 163 as she had just had a coke.She admits sinus congestion.She also admits numbness in the distal part of her feet, bilaterally. She states that her symptoms usually start in the morning with the left foot more noticeable than the right. She reports that her symptoms have been ongoing for a few months.She reports that she has been eating bananas, avocados before bed time and taking OTC magnesium to try and alleviate her symptoms. She has also been wearing flats to avoid injury.She states that she is compliant with her current medication regimen and she is taking a B complex, Vitamin C and Zinc supplements.She takes her sumatriptan as needed for migraine and reports that she had a migraine on 12/23/21.She normally does not eat breakfast but by mid morning, she would have cheese and nuts. By lunch, it would leftovers or a salad. She usually have a protein at dinner. Her exercise involves her simply closing the circles on her apple watch.She usually gets home around 4 pm and has dinner at approximately 6 pm. She does not snack in the nights usually. She is up 5 am and is at work by 7 am. [facility] Work Phone: 12-05-2021 History of Present illness Narrative 52-year-old female with right upper quadrant painPatient known to me for prior excision of a lipoma from the anterior abdominal wall in the right upper quadrant over a year ago. Patient states that that wound is healed however she still hurting in this areaPatient cannot relate the pain to eating. Pain seems to be in the abdominal wall and not internal. She denies any nausea vomitingPatient sometimes can relate the pain to activityPatient states the wound is healed. There is no redness or drainage. -[facility] 450 Work Phone: 11-17-2021 History of Present illness Narrative Patient being assessed today for initial evaluation of neuropathy. Patient reports that for approximately the past year she has the feeling like her left foot is falling asleep as well as the right ball of her foot. She also reports she occasionally gets sharp pain bilaterally in both feet. The sensation is in all of her left foot. Sensation intact to hot and cold as well as pinprick and cotton. Patient does not have a history of diabetes. She does have history of hypertension, occasionally smokes, drinks 3 glasses of wine per night. Labs reviewed. No additional labs needed at this time. We will get EMG completed for further evaluation. As the left side is worse than the right we will do the left side. Follow-up after testing completed.This note was created with voice recognition software and was not corrected for typographical or grammatical errors [id number] [address] Work Phone: 10-18-2021 History of Present illness Narrative Encounter Diagnosis ICD-10-CM 1. Abrasion of left cornea, initial encounter S05.02XA Plan: Nearly healed, no need for abx Return to clinic as soon as possible if condition worsens or fails to improve. I have confirmed and edited as necessary the relevant ophthalmic history, ROS, and the exam findings as obtained by others. I have seen and examined this patient. I have discussed the case and the management of this patient's care with the resident/fellow, if applicable. I also have reviewed and agree with the assessment and plan as stated above and agree with all of its relevant components. Evette Batista OD October 18, 2021 5:01 PM documented in this encounter [place] 07-24-2021 Note Post Operative Note: PreOp Diagnosis: Advanced anterior abdominal wall Post-Procedure Diagnosis: Same Procedure: 1. Excision of soft tissue mass 2. Intermediate closure wound 3. 4. 5. Surgeon: Alex Resident/Fellow/Other Cafeteria Operator: Anesthesia: General Estimated Blood Loss (mL): Minimal Specimen: yes Findings: Lipomatous tissue, no hernia Operative Report Dictated: Dictation: yes Attestation: Note Completion: Attending AttestationI performed the procedure without a resident Electronic Signatures: Char Johnson) (Signed 24-Jul-2021 10:34) Authored: Post Operative Note, Note Completion Last Updated: 24-Jul-2021 10:34 by Char Johnson) [facility] History & Physical R eviewed: /Lactating: Are You no Are You Currently Breastfeedingno I have reviewed the History and Physical dated: 22-Jul-2021 History and Physical reviewed and relevant findings noted. Patient examined to review pertinent physical findings.: No significant changes Home Medications Reviewed: no changes noted Allergies Reviewed: no changes noted ERAS (Enhanced Recovery After Surgery): ERAS Patient: no Consent: COVID-19 Consent: COVID-19 Risk ConsentSurgeon has reviewed greco risks related to the risk of balbina COVID-19 and if they contract COVID-19 what the risks are. Electronic Signatures: Char Johnson) (Signed 24-Jul-2021 09:15) Authored: History & Physical Reviewed, ERAS, Consent, Note Completion Last Updated: 24-Jul-2021 09:15 by Char Johnson) [facility] [place] Note History of Present I llness: /Lactating: Are You no Are You Currently Breastfeedingno HPI: EMELY CLEVELAND is a 50 year old Female who presents for excision of a soft tissue mass in the right upper quadrant of the anterior abdominal wall. Patient gives a 4-6-month history of a lump in the right upper quadrant of the anterior abdominal wall. Lesion is getting a little bit bigger. Hurts if she bumps it. The lesion is never been red or infected. Past medical history/ Hypertension Elevated lipids Social/ Non-smoker Family/ Noncontributory Comorbidities: Comorbidites: Comorbid Conditionshypertension Allergies: No Known Allergies: Medications Prior to Admission: Admission Medication Reconciliation has not been completed for this patient. Review of Systems: Constitutional: NEGATIVE: Fever, Chills, Anorexia, Weight Loss, Malaise Eyes: NEGATIVE: Blurry Vision, Drainage, Diploplia, Redness, Vision Loss/ Change ENMT: NEGATIVE: Nasal Discharge, Nasal Congestion, Ear Pain, Mouth Pain, Throat Pain Respiratory: NEGATIVE: Dry Cough, Productive Cough, Hemoptysis, Wheezing, Shortness of Breath Cardiac: NEGATIVE: Chest Pain, Dyspnea on Exertion, Orthopnea, Palpitations, Syncope Gastrointestinal: NEGATIVE: Nausea, Vomiting, Diarrhea, Constipation, Abdominal Pain Genitourinary: NEGATIVE: Discharge, Dysuria, Flank Pain, Frequency, Hematuria Musculoskeletal: NEGATIVE: Decreased ROM, Pain, Swelling, Stiffness, Weakness Neurological: NEGATIVE: Dizziness, Confusion, Headache, Seizures, Syncope Psychiatric: NEGATIVE: Mood Changes, Anxiety, Hallucinations, Sleep Changes, Suicidal Ideas Skin: NEGATIVE: Mass, Pain, Pruritus, Rash, Ulcer Objective: Physical Exam by System: Constitutional: Well developed, awake/alert/oriented x3, no distress, alert and cooperative Eyes: PERRL, EOMI, clear sclera ENMT: mucous membranes moist, no apparent injury, no lesions seen Head/Neck: Neck supple, no apparent injury, thyroid without mass or tenderness, No JVD, trachea midline, no bruits Respiratory/Thorax: Patent airways, CTAB, normal breath sounds with good chest expansion, thorax symmetric Cardiovascular: Regular, rate and rhythm, no murmurs, 2+ equal pulses of the extremities, normal S 1and S 2 Gastrointestinal: In the right upper quadrant below the costal margin is a soft tissue mass, about 2.5 cm in size, mildly tender, skin intact without erythema or punctum Musculoskeletal: ROM intact, no joint swelling, normal strength Extremities: normal extremities, no cyanosis edema, contusions or wounds, no clubbing Neurological: alert and oriented x3, intact senses, motor, response and reflexes, normal strength Psychological: Appropriate mood and behavior Skin: Warm and dry, no lesions, no rashes Recent Lab Results: Results: CBC: 07/17/2021 09:21 \ Hgb / \ 12.2 / WBC Plt 5.0 256 / Hct \ / 38.2 \ RBC: 3.96 L MCV: 96 BMP: 07/17/2021 09:21 NA+ Cl- BUN / 138 99 9 / Glucose 89 K+ HCO3- Creat \ 3.6 30 0.80 \ Calcium : 9.2 Anion Gap : 13 I have reviewed these laboratory results: Complete Blood Count 17-Jul-2021 09:21:00 ResultValue White Blood Cell Count 5.0 Nucleated Erythrocyte Count 0.0 Red Blood Cell Count 3.96 L HGB 12.2 HCT 38.2 MCV 96 MCHC 31.9 L PLT 256 RDW-CV 14.6 H Basic Metabolic Panel 17-Jul-2021 09:21:00 ResultValue Glucose, Serum 89 NA 138 K 3.6 CL 99 Bicarbonate, Serum 30 Anion Gap, Serum 13 BUN 9 CREAT 0.80 GFR Female 89 Calcium, Serum 9.2 Radiology Results: Results: Conclusion: Normal sinus rhythm Normal ECG No previous ECGs available Confirmed by EMMA ABEL MD ([id number]) on 07/19/2021 9:33:43 AM Electrocardiogram 12 Lead [Jul 19 2021 9:33AM] Impression: Nonspecific increased echogenicity throughout the liver, most likely fatty infiltration. Hepatomegaly. Large exophytic lower pole right renal cyst. Remainder of the exam was negative. Ultrasound Abdomen Complete, Liver Gallbladder Pancreas Spleen [May 24 2021 8:43AM] Assessment and Plan: Assessment: Assessment/ Soft tissue mass right upper quadrant anterior abdominal wall, likely lipoma or other benign entity Plan/ Excise Local anesthesia plus IV sedation The risk benefits and indications for this reviewed with the patient. The anticipated convalescence is reviewed. Potential of atypical malignancy as compared to benign lesions reviewed. All questions were answered and consent is obtained. Issues related to coronavirus are reviewed Electronic Signatures: Char Johnson) (Signed 22-Jul-2021 13:15) Authored: History of Present Illness, Comorbidities, Allergies, Medication (more content not included)... [facility] [place] History of Present illness Narrative Here concerned about her gallbladder-May 03 she went out for dinner for a big meal including alcohol. Thursday night she had pain in her right upper quadrant with several bouts of emesis through the day on Thursday, 4 times. By Thursday she was drinking soda water and saltines. She has had right upper quadrant pain low-grade almost constant now several weeks. She notes once was had her gallbladder out and wonders if that is what has happened'She is also concerned about a bump on the back of her head [facility] [id number] Work Phone: 01-01-2021 History of Present illness Narrative Here for semiannual visit, and wellness visitRecently had an upper respiratory illness-improved with steroids after urgent care. Negative Covid test 01/01Still some ear pressure. Otherwise doing well. No recent injuries. First [facility] occasionally noted [facility] 3201 Work Phone: 03-22-2014 History of Past i llness Narrative Problem Noted Date Resolved Date S/P LASIK surgery of both eyes 03/22/2014 1 documented as of this encounter (statuses as of 10/18/2021) [place]12-03-2014 History of Past illness Narrative* Problem Noted Date Resolved Date S/P LASIK surgery of both eyes 03/22/2014 1 documented as of this encounter (statuses as of 01/09/2022) [place]12-03-2014 History of Past illness Narrative* Problem Noted Date Resolved Date S/P LASIK surgery of both eyes 03/22/2014 1 documented as of this encounter (statuses as of 04/26/2022) [place]12-03-2014 History of Past illness Narrative* Problem Noted Date Resolved Date S/P LASIK surgery of both eyes 03/22/2014 1 documented as of this encounter (statuses as of 07/07/2022) [place]12-03-2014 History of Past illness Narrative* Problem Noted Date Resolved Date S/P LASIK surgery of both eyes 03/22/2014 1 documented as of this encounter (statuses as of 08/18/2022) [place] [address]-03-2014 History of Past illness Narrative* Problem Noted Date Diagnosed Date Resolved Date S/P LASIK surgery of both eyes 03/22/2014 02/14/2016 documented as of this encounter (statuses as of 05/23/2023) [place] [address]-03-2014 History of Past illness Narrative* Problem Noted Date Diagnosed Date Resolved Date S/P LASIK surgery of both eyes 03/22/2014 02/14/2016 documented as of this encounter (statuses as of 05/26/2023) [place] N[place] - Reported* Neuropathy * Neurologic Evaluation. * An interactive audio and video telecommunication system which permits real time communications between the patient (at the originating site) and provider (at the distant site) was utilized to providethis telehealth service. * Verbal consent was requested and obtained from EMELY CLEVELAND on this date, 11/17/2022 08:30 AM , for a telehealth visit. [id number] [address] Work Phone: Evaluation noteN/ADept. of Dermatology Evaluation note* Diagnosis Abrasion of left cornea, initial encounter- Primary documented in this encounter [place]* Diagnosis Abnormal mammogram Abnormal mammogram, unspecified documented in this encounter [place]* Diagnosis Encounter for gynecological examination (general) (routine) without abnormal findings- Primary Encounter for screening mammogram for malignant neoplasm of breast Other screening mammogram [place] in this encounter [place]* Diagnosis Essential hypertension with goal blood pressure less than 130/85- Primary Dyslipidemia, goal LDL below 100 Abdominal pain, RUQ (right upper quadrant) Abdominal pain, right upper quadrant Fatty liver Other chronic nonalcoholic liver disease Adenomatous polyp of colon, unspecified part of colon Prediabetes Other abnormal glucose Abdominal wall pain in right upper quadrant documented in this encounter [facility] Work Phone: [phone] note* Diagnosis Encounter for screening for malignant neoplasm of colon Benign neoplasm of colon, unspecified part of colon documented in this encounter [facility] Work Phone: [phone] note* Diagnosis Acne vulgaris- Primary Other acne Seborrheic keratosis documented in this encounter [facility] Work Phone: [phone] note* Diagnosis Dyslipidemia, goal LDL below 100- Primary Migraine with aura and without status migrainosus, not intractable Essential hypertension with goal blood pressure less than 130/85 Fatty liver Other chronic nonalcoholic liver disease Prediabetes Other abnormal glucose documented in this encounter [facility] Work Phone: [phone] note* Diagnosis Other polyneuropathy documented in this encounter [facility] Work Phone: [phone] note* Diagnosis Encounter for screening for malignant neoplasm of colon Benign neoplasm of colon, unspecified part of colon documented in this encounter [facility] Work Phone: [phone] note* Diagnosis Alcoholism (CMS/HCC)- Primary Other and unspecified alcohol dependence, unspecified drinking behavior documented in this encounter [facility] Work Phone: [phone] note* Diagnosis Closed nondisplaced fracture of base of fifth metacarpal bone of left hand, initial encounter documented in this encounter [facility] Work Phone: [phone] note* Diagnosis Closed nondisplaced fracture of base of fifth metacarpal bone of left hand, initial encounter documented in this encounter [facility] Work Phone: [phone] note* Diagnosis Encounter for screening mammogram for malignant neoplasm of breast Other screening mammogram [place] in this encounter [place]* Diagnosis Gall bladder polyp Cholesterolosis of gallbladder documented in this encounter [facility] Work Phone: Evaluation note* Diagnosis Essential hypertension with goal blood pressure less than 130/85- Primary Alcoholism (Multi) Other and unspecified alcohol dependence, unspecified drinking behavior Low vitamin D level Prediabetes Other abnormal glucose Elevated LFTs Other abnormal blood chemistry Abdominal pain, RUQ (right upper quadrant) Abdominal pain, right upper quadrant Reactive depression Memory changes Dyspepsia Dyspepsia and other specified disorders of function of stomach Spasm of muscle of lower back Hyponatremia Hyposmolality and/or hyponatremia Neutropenia, unspecified type (CMS-HCC) Thrombocytopenia ([facility]-HCC) Unspecified thrombocytopenia documented in this encounter [facility] Work Phone: Evaluation note* Diagnosis Melanocytic nevus, unspecified location- Primary Hemangioma of skin Hemangioma of skin and subcutaneous tissue Lentigo Other dyschromia Seborrheic keratosis Encounter for screening for malignant neoplasm of skin documented in this encounter [facility] Work Phone: Evaluation note* Diagnosis Encounter for gynecological examination (general) (routine) without abnormal findings- Primary Encounter for screening mammogram for malignant neoplasm of breast Other screening mammogram documented in this encounter [place]* Diagnosis Alcohol use disorder, severe, dependence (HCC)- Primary documented in this encounter [place]* Here for follow-up * Work has become exceedingly stressful. FMLA form requested * Stomach pain has improved * Sleep issues ongoing [facility] 3201 Work Phone: History of Present illness Narrative* 50 year F with pmhx including allergic rhinitis, HTN, prediabetes, seasonal affective disorder. * From a previous study * Patient has been snoring for yrs and has not done anything for it. Recently she was on vacation with a friend who encouraged her to get evaluated for sleep apnea. * 3 brothers with KENDALL on pap therapy. * Occasionally, she takes melatonin, zquil, or other otc sleep aid. They help her fall asleep but they do not help her stay asleep. She takes a sleep aid on average 3 days per week. * Today 06/13/21 * Patient had her sleep study done and would like to discuss her results. * Weekdays/Work/School Days: usual bed time: 10pm, usual wake time: 6am and falls asleep at about: 12am. * Weekends/Off Work/Vacation Days: usual bed time: 10pm , usual wake time: 8am and falls asleep at about: 12am . 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 * Naps:. on weekends one day, 2pm for 2hrs. * SLEEP DURATION: 6 hrs. * SLEEP INITIATION: Takes 30min to fall asleep. * SLEEP MAINTENANCE: wakes up about one time a night and variable lengths but usually about 1.5hr. * Problems staying asleep associated with thoughts/worry and nocturia. * BREATHING DURING SLEEP: Snoring during sleep. Witnessed apneas. No gasping/choking for air. Nasal congestion during sleep. flonase and zyrtec. Mouth breathing during sleep. Nocturnal gastroesophagealreflux. rare. No nocturnal cough. * Sleep Positioning: side. * MORNING SYMPTOMS: Morning headaches. Morning dry mouth. Morning sore throat. Unrefreshing sleep. Patient denies stimulant use. * DAYTIME: Daytime sleepiness. sometimes . Fatigue. sometimes. No drowsy driving. No history of car accidents due to drowsy driving. No near-miss car accidents due to drowsy driving. * CAFFEINE USAGE: 1 cup coffee in am. occasional 1pm coffee. * HYPERSOMNIA: No sleep paralysis. No cataplexy. No sleep related hallucinations. * LEGS AT NIGHT: Urge to move legs at night. Worse with resting/getting into bed. Symptoms are betterwith movement. Worse in the evening. 2x per months. * MOVEMENTS IN SLEEP: Bruxism (teeth grinding). not treated, clenching. * PARASOMNIA: No sleeptalking. No sleepwalking. Does not act out of dream. Nightmares 1 x per month, random content. -[facility]-[place] [id number] DO Work Phone: History of Present illness Narrative* Here for follow-up * Work has become exceedingly stressful. FMLA form requested * Stomach pain has improved * Sleep issues ongoing [facility] Work Phone: History of Present illness Narrative* 50 year F with pmhx including allergic rhinitis, HTN, prediabetes, seasonal affective disorder. * From a previous note * Patient has been snoring for yrs and has not done anything for it. Recently she was on vacation with a friend who encouraged her to get evaluated for sleep apnea. * 3 brothers with KENDALL on pap therapy. * Occasionally, she takes melatonin, zquil, or other otc sleep aid. They help her fall asleep but they do not help her stay asleep. She takes a sleep aid on average 3 days per week. * Today, 09/02/21 * patient is doing well on pap therapy, she finds pressure and mask comfortable. * occasionally takes melatonin and magnesium, around 3x per week. She uses them when she feels tired but not sleepy and has a long day the following day. * Weekdays/Work/School Days: usual bed time: 9 pm, usual wake time: 5am and falls asleep at about: 10pm . * Weekends/Off Work/Vacation Days: usual bed time: 10pm , usual wake time: 7am and falls asleep at about: 11pm. 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 * Naps:. on weekends one day, 2pm for 2hrs. * SLEEP DURATION: 6 hrs. * SLEEP INITIATION: Takes 30min to fall asleep. * SLEEP MAINTENANCE: wakes up about one time a night and variable lengths but usually about 30-60min. * Problems staying asleep associated with thoughts/worry and nocturia. * BREATHING DURING SLEEP: No snoring during sleep. No witnessed apneas. No gasping/choking for air. Nasal congestion during sleep. flonase and zyrtec. No mouth breathing during sleep. Nocturnal gastroesophageal reflux. rare. No nocturnal cough. * Sleep Positioning: side. * MORNING SYMPTOMS: Morning headaches. improved with pap. Morning dry mouth. improved with pap. Morning sore throat. improved with pap . Refreshing sleep. improved with pap . Patient denies stimulant use. * DAYTIME: Daytime sleepiness. sometimes . Fatigue. sometimes. No drowsy driving. No history of car accidents due to drowsy driving. No near-miss car accidents due to drowsy driving. * CAFFEINE USAGE: 1 cup coffee in am. * HYPERSOMNIA: No sleep paralysis. No cataplexy. No sleep related hallucinations. * LEGS AT NIGHT: No symptoms of restless legs syndrome (RLS). cramping in bottom of feet 3x per week. * MOVEMENTS IN SLEEP: No bruxism (teeth grinding). * PARASOMNIA: No sleeptalking. No sleepwalking. Does not act out of dream. Nightmares 1 x per month, random content. * PAP Related Problems: dry mouth, but no skin irritation from mask and no snoring with PAP. * Perceived Benefits of PAP Therapy: decreased nocturnal MARIANNE, decreased dry mouth or sore throat, decreased daytime sleepiness, decreased snoring/ choking/ gasping and decreased morning headaches. -[facility] [id number] DO Work Phone: History of Present illness Narrative* Here for follow-up * Reports new job-far less stressful overall doing much better * Doing quite well on CPAP nightly-Flonase helps and less congested through the day. More energy * Excited to announce her grandchild is due near Thanksgiving * She had a nodule removed from her abdominal wall [facility] 3201 Work Phone: History of Present illness NarrativeThe patient presents to Physical Therapy with signs and symptoms consistent with the medical diagnosis of Lumbo sacral dysfunction with radicular involvement. Greco impairments include: pain poor posture decreased core strength and difficulty with functional activities such as house work, driving, lifting. Skilled PT is required to address these greco impairments and to provide and progress with an ap propriate home exercise program. This evaluation is of mod complexity due to the nature of the patient s presentation as well as the comorbidities and medical factors included in this evaluation. [facility] Work Phone: History of Present illness Narrative* Patient educated in dry needling precautions, indications, and contraindications. Patient is aware of the risks and benefits of procedure and wishes to have it performed. No adverse reaction to the dry needling noted. * Patient notes improved pain levels resultant from activities in therapy session. Improved tissue quality noted as well as body mechanics demonstrated after cueing and corrections. Patient continues to require active therapy to progress functional capabilities with decreasing pain levels and improving mechanics with functional activities including progression of Home exercise program. Tolerance totoday's treatment was good. muscle fatigue noted. * Patient appears motivated and compliant this date, demonstrating a working understanding of principals instructed and home program. [facility] Work Phone: history of Present illness Narrative* Patient notes improved pain levels resultant from activities in therapy session. Improved tissue quality noted as well as body mechanics demonstrated after cueing and corrections. Patient continues to require active therapy to progress functional capabilities with decreasing pain levels and improving mechanics with functional activities including progression of Home exercise program. Tolerance totoday's treatment was good. muscle fatigue noted. * Patient appears motivated and compliant this date, demonstrating a working understanding of principals instructed and home program. [facility] Work Phone: history of Present illness Narrative* Patient educated in dry needling precautions, indications, and contraindications. Patient is aware of the risks and benefits of procedure and wishes to have it performed. No adverse reaction to the dry needling noted. * Patient notes improved pain levels resultant from activities in therapy session. Improved tissue quality noted as well as body mechanics demonstrated after cueing and corrections. Patient continues to require active therapy to progress functional capabilities with decreasing pain levels and improving mechanics with functional activities including progression of Home exercise program. Tolerance totoday's treatment was good. muscle fatigue noted. * Patient appears motivated and compliant this date, demonstrating a working understanding of principals instructed and home program. [facility] Work Phone: history of Present illness Narrative* Patient educated in dry needling precautions, indications, and contraindications. Patient is aware of the risks and benefits of procedure and wishes to have it performed. No adverse reaction to the dry needling noted. * Patient notes improved pain levels resultant from activities in therapy session. Improved tissue quality noted as well as body mechanics demonstrated after cueing and corrections. Patient continues to require active therapy to progress functional capabilities with decreasing pain levels and improving mechanics with functional activities including progression of Home exercise program. Tolerance totoday's treatment was good. muscle fatigue noted. * Patient appears motivated and compliant this date, demonstrating a working understanding of principals instructed and home program. [facility] Work Phone: History of Present illness Narrative* Functional progression can be further made by continuing physical therapy with skilled interventions provided by a physical therapist. The patient has demonstrated sustained progress toward functional goals and would benefit from continued skilled services to further attain documented goals. The patient requires education and training to ensure optimal outcomes and reach remaining functional goals. The remaining functional goals are expected to be met in a reasonable time frame. * Patient appears motivated and compliant this date, demonstrating a working understanding of principals instructed and home program. [facility] Work Phone: History of Present illness Narrative* Patient notes improved pain levels resultant from activities in therapy session. Improved tissue quality noted as well as body mechanics demonstrated after cueing and corrections. Patient continues to require active therapy to progress functional capabilities with decreasing pain levels and improving mechanics with functional activities including progression of Home exercise program. Tolerance totoday's treatment was good. muscle fatigue noted. * Patient appears motivated and compliant this date, demonstrating a working understanding of principals instructed and home program. * Patient educated in dry needling precautions, indications, and contraindications. Patient is aware of the risks and benefits of procedure and wishes to have it performed. No adverse reaction to the dry needling noted. [facility] Work Phone: History of Present illness Narrative* Patient notes improved pain levels resultant from activities in therapy session. Improved tissue quality noted as well as body mechanics demonstrated after cueing and corrections. Patient continues to require active therapy to progress functional capabilities with decreasing pain levels and improving mechanics with functional activities including progression of Home exercise program. Tolerance totoday's treatment was good. muscle fatigue noted. * Patient appears motivated and compliant this date, demonstrating a working understanding of principals instructed and home program. * Patient educated in dry needling precautions, indications, and contraindications. Patient is aware of the risks and benefits of procedure and wishes to have it performed. No adverse reaction to the dry needling noted. [facility] Work Phone: History of Present illness Narrative* Patient notes improved pain levels resultant from activities in therapy session. Improved tissue quality noted as well as body mechanics demonstrated after cueing and corrections. Patient continues to require active therapy to progress functional capabilities with decreasing pain levels and improving mechanics with functional activities including progression of Home exercise program. Tolerance totoday's treatment was good. muscle fatigue noted. * Patient appears motivated and compliant this date, demonstrating a working understanding of principals instructed and home program. * Patient educated in dry needling precautions, indications, and contraindications. Patient is aware of the risks and benefits of procedure and wishes to have it performed. No adverse reaction to the dry needling noted. [facility] Work Phone: History of Present illness Narrative* tenderness right sided paraspinals even after DN this date. Patient notes improved pain levels resultant from activities in therapy session. Improved tissue quality noted as well as body mechanics demonstrated after cueing and corrections. Patient continues to require active therapy to progress functional capabilities with decreasing pain levels and improving mechanics with functional activities i ncluding progression of Home exercise program. Tolerance to today's treatment was good. muscle fatigue noted. * Patient appears motivated and compliant this date, demonstrating a working understanding of principals instructed and home program. * Patient educated in dry needling precautions, indications, and contraindications. Patient is aware of the risks and benefits of procedure and wishes to have it performed. No adverse reaction to the dry needling noted. [facility] Work Phone: history of Present illness Narrative* Patient notes improved pain levels resultant from activities in therapy session. Improved tissue quality noted as well as body mechanics demonstrated after cueing and corrections. Patient continues to require active therapy to progress functional capabilities with decreasing pain levels and improving mechanics with functional activities including progression of Home exercise program. Tolerance totoday's treatment was good. muscle fatigue noted. * Patient appears motivated and compliant this date, demonstrating a working understanding of principals instructed and home program. * Patient educated in dry needling precautions, indications, and contraindications. Patient is aware of the risks and benefits of procedure and wishes to have it performed. No adverse reaction to the dry needling noted. [facility] Work Phone: history of Present illness Narrative* Patient notes improved pain levels resultant from activities in therapy session. Improved tissue quality noted as well as body mechanics demonstrated after cueing and corrections. Patient continues to require active therapy to progress functional capabilities with decreasing pain levels and improving mechanics with functional activities including progression of Home exercise program. Tolerance totoday's treatment was good. muscle fatigue noted. * Patient appears motivated and compliant this date, demonstrating a working understanding of principals instructed and home program. * Patient educated in dry needling precautions, indications, and contraindications. Patient is aware of the risks and benefits of procedure and wishes to have it performed. No adverse reaction to the dry needling noted. [facility] Work Phone: History of Present illness Narrative* Patient notes improved pain levels resultant from activities in therapy session. Improved tissue quality noted as well as body mechanics demonstrated after cueing and corrections. Patient continues to require active therapy to progress functional capabilities with decreasing pain levels and improving mechanics with functional activities including progression of Home exercise program. Tolerance totoday's treatment was good. muscle fatigue noted. * Patient appears motivated and compliant this date, demonstrating a working understanding of principals instructed and home program. * Patient educated in dry needling precautions, indications, and contraindications. Patient is aware of the risks and benefits of procedure and wishes to have it performed. No adverse reaction to the dry needling noted. [facility] Work Phone: History of Present illness Narrative* Patient notes improved pain levels resultant from activities in therapy session. Improved tissue quality noted as well as body mechanics demonstrated after cueing and corrections. Patient would like to hold due to insurance limitation. * Patient appears motivated and compliant this date, demonstrating a working understanding of principals instructed and home program. * Patient educated in dry needling precautions, indications, and contraindications. Patient is aware of the risks and benefits of procedure and wishes to have it performed. No adverse reaction to the dry needling noted. 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 Reason for referral (narrative)* Diagnostic Procedure Only (Routine) - Pending Review Specialty Diagnoses / Procedures Referred By Victor M t Referred To Contact [facility] Diagnoses Encounter for screening mammogram for malignant neoplasm of breast Procedures CIERRA SCREENING SCREENING MAMMOGRAPHY BI 2-VIEW BREAST INC CAD Kelly Ames, FLOWER PICKER.DRY CURE WORKER [id number] [facility] [place] [address] [facility] [address] [place] [address] Referral ID Status Reason Start Date Expiration Date Visits Requested Visits Authorized [id number] Pending Review Auto-Generat ed Referral 07/07/2022 08/06/2023 1 1 * Diagnostic Procedure Only (Routine) - Pending Review Specialty Diagnoses / [facility] To [facility] Diagnoses Encounter for screening mammogram for malignant neoplasm of breast Procedures CIERRA SCREENING W BRITTANI SCREENING DIGITAL BREAST TOMOSYNTHESIS BI SCREENING MAMMOGRAPHY BI 2-VIEW BREAST INC TOREY Ames, Kelly Krishnan APRN.DRY CURE WORKER [address] [place] [address] [facility] [address] [place] [phone] Referral ID Status Reason Start Date Expiration Date Visits Requested Visits Authorized [id number] Pending Review Auto-Generat ed Referral 07/07/2022 08/06/2023 1 1 [facility] for referral (narrative)* Consultation (Routine) - Authorized Specialty Diagnoses / Procedures Referred By [facility] Referred To Contact General Surgery Diagnoses Abdominal wall pain in right upper quadrant Procedures [place] OFFICE/OUTPATIENT NEW HIGH MDM 60-74 MINUTES Jhoan Roberto MD [address] [facility] [place], [place] [id number] Referral ID Status Reason Start Date Expiration Date Visits Requested Visits Authorized [id number] Authorized Specialty Services Required 10/17/2022 04/15/2023 1 1 * Endoscopy (Routine) - Authorized Specialty Diagnoses / Procedures Referred By [facility] t Referred To Contact Gastroenterology Diagnoses Adenomatous polyp of colon, unspecified part of colon Procedures Colonoscopy Jhoan Roberto MD [address] [facility] [place], [place] [phone] Referral ID Status Reason Start Date Expiration Date V isits Requested Visits Authorized [id number] Authorized 10/17/2022 04/15/2023 1 1 * Imaging (Routine) - Authorized Specialty Diagnoses / Procedures Referred By Contac t Referred To Contact Radiology Diagnoses Fatty liver Procedures US elastography parenchyma EG organ Jhoan Roberto MD [address] [facility] [place], [place] [address] [place] [address] Referral ID Status Reason Start Date Expiration Date Visits Requested Visits Authorized [id number] Authorized Perform Procedure 10/17/2022 04/15/2023 1 1 [facility] Work Phone: Reason for referral (narrative)* Consultation (Routine) - Authorized Specialty Diagnoses / Procedures Referred By Contac t Referred To Contact Hepatology Diagnoses Elevated LFTs Jhoan Roberto MD [address] [facility] [place], [place] [address] [place], [place] [phone] Referral ID Status Reason Start Date Expiration Date Visits Requested Visits Authorized [id number] Authorized Specialty Services Required 09/28/2023 09/27/2024 1 1 * Consultation (Routine) - Authorized Specialty Diagnoses / Procedures Referred By Contac t Referred To Contact Psychiatry / Behavioral Health Diagnoses Reactive depression Jhoan Roberto MD [address] [facility] [place], [place] [address] [place], [place] [phone] Referral ID Status Reason Start Date Expiration Date Visits Requested Visits Authorized [id number] Authorized Specialty Services Required 09/25/2023 09/24/2024 1 1 * Consultation (Routine) - Authorized Specialty Diagnoses / Procedures Referred By Contac t Referred To Contact Neurology Diagnoses Memory changes Jhoan Roberto MD [address] [facility] [place], [facility] [address] [place] [id number] Referral ID Status Reason Start Date Expiration Date Visits Requested Visits Authorized [id number] Authorized Specialty Services Required 09/25/2023 09/24/2024 1 1 * Consultation (Routine) - Authorized Specialty Diagnoses / Procedures Referred By Victor M mayes Referred To Contact Behavioral Health / Psychiatry Diagnoses Alcoholism (Multi) Jhoan Roberto MD [address] [facility] [place], [place] [phone] Referral ID Status Reason Start Date Expiration Date Visits Requested Visits Authorized [id number] Authorized Specialty Services Required 09/25/2023 09/24/2024 1 1 [facility] Work Phone: Reason for referral (narrative)* Diagnostic Procedure Only (Routine) - Pending Review Specialty Diagnoses / Procedures Referred By Victor M mayes Referred To Contact [facility] Diagnoses Encounter for screening mammogram for malignant neoplasm of breast Procedures CIERRA SCREENING W BRITTANI SCREENING DIGITAL BREAST TOMOSYNTHESIS BI SCREENING MAMMOGRAPHY BI 2-VIEW BREAST INC CAD Carlos, Kelly Krishnan APRN.DRY CURE WORKER [id number] [facility] [place] [address] [facility] Imaging [address] [place] [address] Referral ID Status Reason Start Date Expiration Date Visits Requested Visits Authorized [id number] Pending Review Auto-Generat ed Referral 10/05/2023 11/03/2024 1 1 [place]* Diagnostic Procedure Only (Routine) - Closed Specialty Diagnoses / Procedures Referred By Victor M mayes Referred To Contact [facility] Diagnoses Abnormal mammogram Procedures CIERRA DIAGNOSTIC BILAT DIAGNOSTIC MAMMOGRAPHY COMPUTER-AIDED DETCJ BI Kelly Ames, FLOWER PICKER.DRY CURE WORKER [id number] [facility] [employer] [facility] [place] [address] Br Imaging [address] [place] [address] Referral ID Status Reason Start Date Expiration Date V isits Requested Visits Authorized [id number] Closed Auto-Generate d Referral 06/06/2021 07/06/2022 1 1 [place]* Initial Evaluation . LBP with radicular symptoms. * Referred by: Gene Roberto [facility] Work Phone: Reason for visit Narrative* Consultation (Routine) - Authorized Specialty Diagnoses / Procedures Referred By Victor M mayes Referred To Contact Behavioral Health / Psychiatry Diagnoses Alcoholism (CMS/HCC) Jhoan Roberto MD [address] [facility], [address] [address] Referral ID Status Reason Start Date Expiration Date Visits Requested Visits Authorized [id number] Authorized Specialty Services Required 3 03/17/2024 1 1 [facility] Work Phone: Reqhqu for visit Narrative* Diagnostic Procedure Only (Routine) - Closed Specialty Diagnoses / Procedures Referred By Victor M mayes Referred To Contact [facility] Diagnoses Encounter for screening mammogram for malignant neoplasm of breast Procedures CIERRA SCREENING W BRITTANI SCREENING DIGITAL BREAST TOMOSYNTHESIS BI SCREENING MAMMOGRAPHY BI 2-VIEW BREAST INC CAD Kelly Ames, FLOWER PICKER.DRY CURE WORKER [id number] [facility] [employer] [facility] [place] [address] [facility] [address] [place] [address] Referral ID Status Reason Start Date Expiration Date V isits Requested Visits Authorized [id number] Closed Auto-Generate d Referral 07/07/2022 08/06/2023 1 1 [place] Family History No Family History Records Found Sibling Name Dates Details Family history of No known h ealth problems(V49.89, Z78.9) Status:Active Mother Name Dates Details Family history of No known h ealth problems(V49.89, Z78.9) Status:Active Father Name Dates Details Family history of (799.9 , R99) Status:Active Brother Name Dates Details Family history of Hemifacial Spasm Status:Active Family history of Idiopathic Hypertrophic Subaortic Stenosis Status:Active Sibling Name Dates Details Family history of No known h ealth problems(V49.89, Z78.9) Status:Active Mother Name Dates Details Family history of No known h ealth problems(V49.89, Z78.9) Status:Active Father Name Dates Details Family history of (799.9 , R99) Status:Active Brother Name Dates Details Family history of Hemifacial Spasm Status:Active Family history of Idiopathic Hypertrophic Subaortic Stenosis Status:Active Sibling Name Dates Details Family history of No known h ealth problems(V49.89, Z78.9) Status:Active Mother Name Dates Details Family history of No known h ealth problems(V49.89, Z78.9) Status:Active Father Name Dates Details Family history of (799.9 , R99) Status:Active Brother Name Dates Details Family history of Hemifacial Spasm Status:Active Family history of Idiopathic Hypertrophic Subaortic Stenosis Status:Active Sibling Name Dates Details Family history of No known h ealth problems(V49.89, Z78.9) Status:Active Mother Name Dates Details Family history of No known h ealth problems(V49.89, Z78.9) Status:Active Father Name Dates Details Family history of (799.9 , R99) Status:Active Brother Name Dates Details Family history of Hemifacial Spasm Status:Active Family history of Idiopathic Hypertrophic Subaortic Stenosis Status:Active Unknown Family Member Name Dates Details Hemifacial Spasm: Brother Comments:Eye; Status:Active Idiopathic Hypertrophic Suba ortic Stenosis: Brother Status:Active No known health problems: Mo ther, Sibling Comments:mother, 75, malcolm, domingo carrasco in [place]; Natali is the 4th of 10 kids, HTN, and kidney stones in several; Status:Active : Father Comments:father at 67 - brain tumor; Status:Active Unknown Family Member Name Dates Details No known health problems: Mo ther, Sibling Comments:mother, 75, well, l luna in [place]; Natali is the 4th of 10 kids, HTN, and kidney stones in several; Status:Active : Father Comments:father at 67 - brain tumor; Status:Active Idiopathic Hypertrophic Suba ortic Stenosis: Brother Status:Active Hemifacial Spasm: Brother Comments:Eye; Status:Active Unknown Family Member Name Dates Details Hemifacial Spasm: Brother Comments:Eye; Status:Active Idiopathic Hypertrophic Suba ortic Stenosis: Brother Status:Active No known health problems: Mo ther, Sibling Comments:mother, 75, well, l luna in [place]; Natali is the 4th of 10 kids, HTN, and kidney stones in several; Status:Active : Father Comments:father at 67 - brain tumor; Status:Active Unknown Family Member Name Dates Details Hemifacial Spasm: Brother Comments:Eye; Status:Active Idiopathic Hypertrophic Suba ortic Stenosis: Brother Status:Active No known health problems: Mo ther, Sibling Comments:mother, 75, well, l luna in [place]; Natali is the 4th of 10 kids, HTN, and kidney stones in several; Status:Active : Father Comments:father at 67 - brain tumor; Status:Active Unknown Family Member Name Dates Details Hemifacial Spasm: Brother Comments:Eye; Status:Active Idiopathic Hypertrophic Suba ortic Stenosis: Brother Status:Active No known health problems: Mo ther, Sibling Comments:mother, 75, well, l luna in [place]; Natali is the 4th of 10 kids, HTN, and kidney stones in several; Status:Active : Father Comments:father at 67 - brain tumor; Status:Active Unknown Family Member Name Dates Details Hemifacial Spasm: Brother Comments:Eye; Status:Active Idiopathic Hypertrophic Suba ortic Stenosis: Brother Status:Active No known health problems: Mo ther, Sibling Comments:mother, 75, well, l luna in [place]; Natali is the 4th of 10 kids, HTN, and kidney stones in several; Status:Active : Father Comments:father at 67 - brain tumor; Status:Active Unknown Family Member Name Dates Details Hemifacial Spasm: Brother Comments:Eye; Status:Active Idiopathic Hypertrophic Suba ortic Stenosis: Brother Status:Active No known health problems: Mo ther, Sibling Comments:mother, 75, well, l luna in [place]; Natali is the 4th of 10 kids, HTN, and kidney stones in several; Status:Active : Father Comments:father at 67 - brain tumor; Status:Active Unknown Family Member Name Dates Details Hemifacial Spasm: Brother Comments:Eye; Status:Active Idiopathic Hypertrophic Suba ortic Stenosis: Brother Status:Active No known health problems: Mo ther, Sibling Comments:mother, 75, well, l luna in [place]; Natali is the 4th of 10 kids, HTN, and kidney stones in several; Status:Active : Father Comments:father at 67 - brain tumor; Status:Active Unknown Family Member Name Dates Details Hemifacial Spasm: Brother Comments:Eye; Status:Active Idiopathic Hypertrophic Suba ortic Stenosis: Brother Status:Active No known health problems: Mo ther, Sibling Comments:mother, 75, well, l luna in [place]; Natali is the 4th of 10 kids, HTN, and kidney stones in several; Status:Active : Father Comments:father at 67 - brain tumor; Status:Active Unknown Family Member Name Dates Details : Father Comments:father at 67 - brain tumor; Status:Active No known health problems: Mo ther, Sibling Comments:mother, 75, well, l luna in [place]; Natali is the 4th of 10 kids, HTN, and kidney stones in several; Status:Active Idiopathic Hypertrophic Suba ortic Stenosis: Brother Status:Active Hemifacial Spasm: Brother Comments:Eye; Status:Active Unknown Family Member Name Dates Details Hemifacial Spasm: Brother Comments:Eye; Status:Active Idiopathic Hypertrophic Suba ortic Stenosis: Brother Status:Active No known health problems: Mo ther, Sibling Comments:mother, 75, well, l luna in [place]; Natali is the 4th of 10 kids, HTN, and kidney stones in several; Status:Active : Father Comments:father at 67 - brain tumor; Status:Active Unknown Family Member Name Dates Details Family history of essential hypertension: Father, Brother(V17.49, Z82.49) Comments:2 brothers w/ HTN, one brother is a doctor; Status:Active : Father Comments:father at 67 - brain tumor; Status:Active No known health problems: Mo ther, Sibling Comments:mother, 75, well, l luna in [place]; Natali is the 4th of 10 kids, HTN, and kidney stones in several; Status:Active Idiopathic Hypertrophic Suba ortic Stenosis: Brother Status:Active Hemifacial Spasm: Brother Comments:Eye; Status:Active Unknown Family Member Name Dates Details Hemifacial Spasm: Brother Comments:Eye; Status:Active Idiopathic Hypertrophic Suba ortic Stenosis: Brother Status:Active No known health problems: Mo ther, Sibling Comments:mother, 75, well, l luna in [place]; Natali is the 4th of 10 kids, HTN, and kidney stones in several; Status:Active : Father Comments:father at 67 - brain tumor; Status:Active Family history of essential hypertension: Father, Brother(V17.49, Z82.49) Comments:2 brothers w/ HTN, one brother is a doctor; Status:Active Unknown Family Member Name Dates Details Hemifacial Spasm: Brother Comments:Eye; Status:Active Idiopathic Hypertrophic Suba ortic Stenosis: Brother Status:Active No known health problems: Mo ther, Sibling Comments:mother, 75, well, l luna in [place]; Natali is the 4th of 10 kids, HTN, and kidney stones in several; Status:Active : Father Comments:father at 67 - brain tumor; Status:Active Family history of essential hypertension: Father, Brother(V17.49, Z82.49) Comments:2 brothers w/ HTN, one brother is a doctor; Status:Active Unknown Family Member Name Dates Details No known health problems: Mo ther, Sibling Comments:mother, 75, [place], [place] in [place]; Natali is the 4th of 10 kids, HTN, and kidney stones in several; Status:Active : Father Comments:father at 67 - brain tumor; Status:Active Family history of essential hypertension: Father, Brother(V17.49, Z82.49) Comments:2 brothers w/ HTN, one brother is a doctor; Status:Active Idiopathic Hypertrophic Suba ortic Stenosis: Brother Status:Active Hemifacial Spasm: Brother Comments:Eye; Status:Active Unknown Family Member Name Dates Details Hemifacial Spasm: Brother Comments:Eye; Status:Active Idiopathic Hypertrophic Suba ortic Stenosis: Brother Status:Active No known health problems: Mo ther, Sibling Comments:mother, 75, well, l luna in [place]; Natali is the 4th of 10 kids, HTN, and kidney stones in several; Status:Active : Father Comments:father at 67 - brain tumor; Status:Active Family history of essential hypertension: Father, Brother(V17.49, Z82.49) Comments:2 brothers w/ HTN, one brother is a doctor; Status:Active Unknown Family Member Name Dates Details Family history of essential hypertension: Father, Brother(V17.49, Z82.49) Comments:2 brothers w/ HTN, one brother is a doctor; Status:Active : Father Comments:father at 67 - brain tumor; Status:Active No known health problems: Mo ther, Sibling Comments:mother, 75, well, l luna in [place]; Natali is the 4th of 10 kids, HTN, and kidney stones in several; Status:Active Idiopathic Hypertrophic Suba ortic Stenosis: Brother Status:Active Hemifacial Spasm: Brother Comments:Eye; Status:Active Unknown Family Member Name Dates Details Hemifacial Spasm: Brother Comments:Eye; Status:Active Idiopathic Hypertrophic Suba ortic Stenosis: Brother Status:Active No known health problems: Mo ther, Sibling Comments:mother, 75, well, l luna in [place]; Natali is the 4th of 10 kids, HTN, and kidney stones in several; Status:Active : Father Comments:father at 67 - brain tumor; Status:Active Family history of essential hypertension: Father, Brother(V17.49, Z82.49) Comments:2 brothers w/ HTN, one brother is a doctor; Status:Active Unknown Family Member Name Dates Details Family history of essential hypertension: Father, Brother(V17.49, Z82.49) Comments:2 brothers w/ HTN, one brother is a doctor; Status:Active Idiopathic Hypertrophic Suba ortic Stenosis: Brother Status:Active Hemifacial Spasm: Brother Comments:Eye; Status:Active No known health problems: Mo ther, Sibling Comments:mother, 75, well, l luna in [place]; Natali is the 4th of 10 kids, HTN, and kidney stones in several; Status:Active : Father Comments:father at 67 - brain tumor; Status:Active Unknown Family Member Name Dates Details Hemifacial Spasm: Brother Comments:Eye; Status:Active Idiopathic Hypertrophic Suba ortic Stenosis: Brother Status:Active No known health problems: Mo ther, Sibling Comments:mother, 75, well, l luna in [place]; Natali is the 4th of 10 kids, HTN, and kidney stones in several; Status:Active : Father Comments:father at 67 - brain tumor; Status:Active Family history of essential hypertension: Father, Brother(V17.49, Z82.49) Comments:2 brothers w/ HTN, one brother is a doctor; Status:Active Unknown Family Member Name Dates Details No known health problems: Mo ther, Sibling Comments:mother, 75, well, l luna in [place]; Natali is the 4th of 10 kids, HTN, and kidney stones in several; Status:Active : Father Comments:father at 67 - brain tumor; Status:Active Family history of essential hypertension: Father, Brother(V17.49, Z82.49) Comments:2 brothers w/ HTN, one brother is a doctor; Status:Active Idiopathic Hypertrophic Suba ortic Stenosis: Brother Status:Active Hemifacial Spasm: Brother Comments:Eye; Status:Active Unknown Family Member Name Dates Details Hemifacial Spasm: Brother Comments:Eye; Status:Active Idiopathic Hypertrophic Suba ortic Stenosis: Brother Status:Active No known health problems: Mo ther, Sibling Comments:mother, 75, well, l luna in [place]; Natali is the 4th of 10 kids, HTN, and kidney stones in several; Status:Active : Father Comments:father at 67 - brain tumor; Status:Active Family history of essential hypertension: Father, Brother(V17.49, Z82.49) Comments:2 brothers w/ HTN, one brother is a doctor; Status:Active Unknown Family Member Name Dates Details No known health problems: Mo ther, Sibling Comments:mother, 75, well, l luna in [place]; Natali is the 4th of 10 kids, HTN, and kidney stones in several; Status:Active : Father Comments:father at 67 - brain tumor; Status:Active Family history of essential hypertension: Father, Brother(V17.49, Z82.49) Comments:2 brothers w/ HTN, one brother is a doctor; Status:Active Idiopathic Hypertrophic Suba ortic Stenosis: Brother Status:Active Hemifacial Spasm: Brother Comments:Eye; Status:Active Unknown Family Member Name Dates Details Hemifacial Spasm: Brother Comments:Eye; Status:Active Idiopathic Hypertrophic Suba ortic Stenosis: Brother Status:Active No known health problems: Mo ther, Sibling Comments:mother, 75, well, l luna in [place]; Natali is the 4th of 10 kids, HTN, and kidney stones in several; Status:Active : Father Comments:father at 67 - brain tumor; Status:Active Family history of essential hypertension: Father, Brother(V17.49, Z82.49) Comments:2 brothers w/ HTN, one brother is a doctor; Status:Active Unknown Family Member Name Dates Details Hemifacial Spasm: Brother Comments:Eye; Status:Active Idiopathic Hypertrophic Suba ortic Stenosis: Brother Status:Active No known health problems: Mo ther, Sibling Comments:mother, 75, well, l luna in [place]; Natali is the 4th of 10 kids, HTN, and kidney stones in several; Status:Active : Father Comments:father at 67 - brain tumor; Status:Active Family history of essential hypertension: Father, Brother(V17.49, Z82.49) Comments:2 brothers w/ HTN, one brother is a doctor; Status:Active Unknown Family Member Name Dates Details Hemifacial Spasm: Brother Comments:Eye; Status:Active Idiopathic Hypertrophic Suba ortic Stenosis: Brother Status:Active No known health problems: Mo ther, Sibling Comments:mother, 75, well, l luna in [place]; Natali is the 4th of 10 kids, HTN, and kidney stones in several; Status:Active : Father Comments:father at 67 - brain tumor; Status:Active Family history of essential hypertension: Father, Brother(V17.49, Z82.49) Comments:2 brothers w/ HTN, one brother is a doctor; Status:Active Unknown Family Member Name Dates Details Hemifacial Spasm: Brother Comments:Eye; Status:Active Idiopathic Hypertrophic Suba ortic Stenosis: Brother Status:Active No known health problems: Mo ther, Sibling Comments:mother, 75, well, l luna in [place]; Natali is the 4th of 10 kids, HTN, and kidney stones in several; Status:Active : Father Comments:father at 67 - brain tumor; Status:Active Family history of essential hypertension: Father, Brother(V17.49, Z82.49) Comments:2 brothers w/ HTN, one brother is a doctor; Status:Active Unknown Family Member Name Dates Details No known health problems: Mo ther, Sibling Comments:mother, 75, well, l luna in [place]; Natali is the 4th of 10 kids, HTN, and kidney stones in several; Status:Active : Father Comments:father at 67 - brain tumor; Status:Active Family history of essential hypertension: Father, Brother(V17.49, Z82.49) Comments:2 brothers w/ HTN, one brother is a doctor; Status:Active Idiopathic Hypertrophic Suba ortic Stenosis: Brother Status:Active Hemifacial Spasm: Brother Comments:Eye; Status:Active Unknown Family Member Name Dates Details Hemifacial Spasm: Brother Comments:Eye; Status:Active Idiopathic Hypertrophic Suba ortic Stenosis: Brother Status:Active No known health problems: Mo ther, Sibling Comments:mother, 75, well, l luna in [place]; Natali is the 4th of 10 kids, HTN, and kidney stones in several; Status:Active : Father Comments:father at 67 - brain tumor; Status:Active Family history of essential hypertension: Father, Brother(V17.49, Z82.49) Comments:2 brothers w/ HTN, one brother is a doctor; Status:Active Unknown Family Member Name Dates Details Hemifacial Spasm: Brother Comments:Eye; Status:Active Idiopathic Hypertrophic Suba ortic Stenosis: Brother Status:Active No known health problems: Mo ther, Sibling Comments:mother, 75, well, l luna in [place]; Natali is the 4th of 10 kids, HTN, and kidney stones in several; Status:Active : Father Comments:father at 67 - brain tumor; Status:Active Family history of essential hypertension: Father, Brother(V17.49, Z82.49) Comments:2 brothers w/ HTN, one brother is a doctor; Status:Active Unknown Family Member Name Dates Details Family history of essential hypertension: Father, Brother(V17.49, Z82.49) Comments:2 brothers w/ HTN, one brother is a doctor; Status:Active : Father Comments:father at 67 - brain tumor; Status:Active No known health problems: Mo ther, Sibling Comments:mother, 75, well, l luna in [place]; Natali is the 4th of 10 kids, HTN, and kidney stones in several; Status:Active Idiopathic Hypertrophic Suba ortic Stenosis: Brother Status:Active Hemifacial Spasm: Brother Comments:Eye; Status:Active Unknown Family Member Name Dates Details No known health problems: Mo ther, Sibling Comments:mother, 75, well, l luna in [place]; Natali is the 4th of 10 kids, HTN, and kidney stones in several; Status:Active : Father Comments:father at 67 - brain tumor; Status:Active Family history of essential hypertension: Father, Brother(V17.49, Z82.49) Comments:2 brothers w/ HTN, one brother is a doctor; Status:Active Idiopathic Hypertrophic Suba ortic Stenosis: Brother Status:Active Hemifacial Spasm: Brother Comments:Eye; Status:Active Unknown Family Member Name Dates Details Family history of essential hypertension: Father, Brother(V17.49, Z82.49) Comments:2 brothers w/ HTN, one brother is a doctor; Status:Active Idiopathic Hypertrophic Suba ortic Stenosis: Brother Status:Active Hemifacial Spasm: Brother Comments:Eye; Status:Active No known health problems: Mo ther, Sibling Comments:mother, 75, well, l luna in [place]; Natali is the 4th of 10 kids, HTN, and kidney stones in several; Status:Active : Father Comments:father at 67 - brain tumor; Status:Active Unknown Family Member Name Dates Details Hemifacial Spasm: Brother Comments:Eye; Status:Active Idiopathic Hypertrophic Suba ortic Stenosis: Brother Status:Active No known health problems: Mo ther, Sibling Comments:mother, 75, well, l luna in [place]; Natali is the 4th of 10 kids, HTN, and kidney stones in several; Status:Active : Father Comments:father at 67 - brain tumor; Status:Active Family history of essential hypertension: Father, Brother(V17.49, Z82.49) Comments:2 brothers w/ HTN, one brother is a doctor; Status:Active Unknown Family Member Name Dates Details Hemifacial Spasm: Brother Comments:Eye; Status:Active Idiopathic Hypertrophic Suba ortic Stenosis: Brother Status:Active No known health problems: Mo ther, Sibling Comments:mother, 75, well, l luna in [place]; Natali is the 4th of 10 kids, HTN, and kidney stones in several; Status:Active : Father Comments:father at 67 - brain tumor; Status:Active Family history of essential hypertension: Father, Brother(V17.49, Z82.49) Comments:2 brothers w/ HTN, one brother is a doctor; Status:Active Unknown Family Member Name Dates Details Hemifacial Spasm: Brother Comments:Eye; Status:Active Idiopathic Hypertrophic Suba ortic Stenosis: Brother Status:Active No known health problems: Mo ther, Sibling Comments:mother, 75, well, l luna in [place]; Natali is the 4th of 10 kids, HTN, and kidney stones in several; Status:Active : Father Comments:father at 67 - brain tumor; Status:Active Family history of essential hypertension: Father, Brother(V17.49, Z82.49) Comments:2 brothers w/ HTN, one brother is a doctor; Status:Active Unknown Family Member Name Dates Details Hemifacial Spasm: Brother Comments:Eye; Status:Active Idiopathic Hypertrophic Suba ortic Stenosis: Brother Status:Active No known health problems: Mo ther, Sibling Comments:mother, 75, well, l luna in [place]; Natali is the 4th of 10 kids, HTN, and kidney stones in several; Status:Active : Father Comments:father at 67 - brain tumor; Status:Active Family history of essential hypertension: Father, Brother(V17.49, Z82.49) Comments:2 brothers w/ HTN, one brother is a doctor; Status:Active Unknown Family Member Name Dates Details Hemifacial Spasm: Brother Comments:Eye; Status:Active Idiopathic Hypertrophic Suba ortic Stenosis: Brother Status:Active No known health problems: Mo ther, Sibling Comments:mother, 75, well, l luna in [place]; Natali is the 4th of 10 kids, HTN, and kidney stones in several; Status:Active : Father Comments:father at 67 - brain tumor; Status:Active Family history of essential hypertension: Father, Brother(V17.49, Z82.49) Comments:2 brothers w/ HTN, one brother is a doctor; Status:Active Unknown Family Member Name Dates Details Hemifacial Spasm: Brother Comments:Eye; Status:Active Idiopathic Hypertrophic Suba ortic Stenosis: Brother Status:Active No known health problems: Mo ther, Sibling Comments:mother, 75, well, l luna in [place]; Natali is the 4th of 10 kids, HTN, and kidney stones in several; Status:Active : Father Comments:father at 67 - brain tumor; Status:Active Family history of essential hypertension: Father, Brother(V17.49, Z82.49) Comments:2 brothers w/ HTN, one brother is a doctor; Status:Active Unknown Family Member Name Dates Details Hemifacial Spasm: Brother Comments:Eye; Status:Active Idiopathic Hypertrophic Suba ortic Stenosis: Brother Status:Active No known health problems: Mo ther, Sibling Comments:mother, 75, well, l luna in [place]; Natali is the 4th of 10 kids, HTN, and kidney stones in several; Status:Active : Father Comments:father at 67 - brain tumor; Status:Active Family history of essential hypertension: Father, Brother(V17.49, Z82.49) Comments:2 brothers w/ HTN, one brother is a doctor; Status:Active Unknown Family Member Name Dates Details No known health problems: Mo ther, Sibling Comments:mother, 75, well, l luna in [place]; Natali is the 4th of 10 kids, HTN, and kidney stones in several; Status:Active : Father Comments:father at 67 - brain tumor; Status:Active Family history of essential hypertension: Father, Brother(V17.49, Z82.49) Comments:2 brothers w/ HTN, one brother is a doctor; Status:Active Idiopathic Hypertrophic Suba ortic Stenosis: Brother Status:Active Hemifacial Spasm: Brother Comments:Eye; Status:Active Unknown Family Member Name Dates Details No known health problems: Mo ther, Sibling Comments:mother, 75, well, l luna in [place]; Natali is the 4th of 10 kids, HTN, and kidney stones in several; Status:Active : Father Comments:father at 67 - brain tumor; Status:Active Family history of essential hypertension: Father, Brother(V17.49, Z82.49) Comments:2 brothers w/ HTN, one brother is a doctor; Status:Active Idiopathic Hypertrophic Suba ortic Stenosis: Brother Status:Active Hemifacial Spasm: Brother Comments:Eye; Status:Active Unknown Family Member Name Dates Details Hemifacial Spasm: Brother Comments:Eye; Status:Active Idiopathic Hypertrophic Suba ortic Stenosis: Brother Status:Active No known health problems: Mo ther, Sibling Comments:mother, 75, well, l luna in [place]; Natali is the 4th of 10 kids, HTN, and kidney stones in several; Status:Active : Father Comments:father at 67 - brain tumor; Status:Active Family history of essential hypertension: Father, Brother(V17.49, Z82.49) Comments:2 brothers w/ HTN, one brother is a doctor; Status:Active Unknown Family Member Name Dates Details Hemifacial Spasm: Brother Comments:Eye; Status:Active Idiopathic Hypertrophic Suba ortic Stenosis: Brother Status:Active No known health problems: Mo ther, Sibling Comments:mother, 75, well, l luna in [place]; Natali is the 4th of 10 kids, HTN, and kidney stones in several; Status:Active : Father Comments:father at 67 - brain tumor; Status:Active Family history of essential hypertension: Father, Brother(V17.49, Z82.49) Comments:2 brothers w/ HTN, one brother is a doctor; Status:Active Unknown Family Member Name Dates Details No known health problems: Mo ther, Sibling Comments:mother, 75, well, l luna in [place]; Natali is the 4th of 10 kids, HTN, and kidney stones in several; Status:Active : Father Comments:father at 67 - brain tumor; Status:Active Idiopathic Hypertrophic Suba ortic Stenosis: Brother Status:Active Hemifacial Spasm: Brother Comments:Eye; Status:Active Family history of essential hypertension: Father, Brother(V17.49, Z82.49) Comments:2 brothers w/ HTN, one brother is a doctor; Status:Active Unknown Family Member Name Dates Details No known health problems: Mo ther, Sibling Comments:mother, 75, well, l luna in [place]; Natali is the 4th of 10 kids, HTN, and kidney stones in several; Status:Active : Father Comments:father at 67 - brain tumor; Status:Active Family history of essential hypertension: Father, Brother(V17.49, Z82.49) Comments:2 brothers w/ HTN, one brother is a doctor; Status:Active Idiopathic Hypertrophic Suba ortic Stenosis: Brother Status:Active Hemifacial Spasm: Brother Comments:Eye; Status:Active Unknown Family Member Name Dates Details Hemifacial Spasm: Brother Comments:Eye; Status:Active Idiopathic Hypertrophic Suba ortic Stenosis: Brother Status:Active No known health problems: Mo ther, Sibling Comments:mother, 75, well, l luna in [place]; Natali is the 4th of 10 kids, HTN, and kidney stones in several; Status:Active : Father Comments:father at 67 - brain tumor; Status:Active Family history of essential hypertension: Father, Brother(V17.49, Z82.49) Comments:2 brothers w/ HTN, one brother is a doctor; Status:Active Unknown Family Member Name Dates Details No known health problems: Mo ther, Sibling Comments:mother, 75, well, l luna in [place]; Natali is the 4th of 10 kids, HTN, and kidney stones in several; Status:Active : Father Comments:father at 67 - brain tumor; Status:Active Family history of essential hypertension: Father, Brother(V17.49, Z82.49) Comments:2 brothers w/ HTN, one brother is a doctor; Status:Active Idiopathic Hypertrophic Suba ortic Stenosis: Brother Status:Active Hemifacial Spasm: Brother Comments:Eye; Status:Active Unknown Family Member Name Dates Details Hemifacial Spasm: Brother Comments:Eye; Status:Active Idiopathic Hypertrophic Suba ortic Stenosis: Brother Status:Active No known health problems: Mo ther, Sibling Comments:mother, 75, well, l luna in [place]; Natali is the 4th of 10 kids, HTN, and kidney stones in several; Status:Active : Father Comments:father at 67 - brain tumor; Status:Active Family history of essential hypertension: Father, Brother(V17.49, Z82.49) Comments:2 brothers w/ HTN, one brother is a doctor; Status:Active Unknown Family Member Name Dates Details Hemifacial Spasm: Brother Comments:Eye; Status:Active Idiopathic Hypertrophic Suba ortic Stenosis: Brother Status:Active No known health problems: Mo ther, Sibling Comments:mother, 75, well, l luna in [place]; Natali is the 4th of 10 kids, HTN, and kidney stones in several; Status:Active : Father Comments:father at 67 - brain tumor; Status:Active Family history of essential hypertension: Father, Brother(V17.49, Z82.49) Comments:2 brothers w/ HTN, one brother is a doctor; Status:Active Unknown Family Member Name Dates Details Hemifacial Spasm: Brother Comments:Eye; Status:Active Idiopathic Hypertrophic Suba ortic Stenosis: Brother Status:Active No known health problems: Mo ther, Sibling Comments:mother, 75, well, l luna in [place]; Natali is the 4th of 10 kids, HTN, and kidney stones in several; Status:Active : Father Comments:father at 67 - brain tumor; Status:Active Family history of essential hypertension: Father, Brother(V17.49, Z82.49) Comments:2 brothers w/ HTN, one brother is a doctor; Status:Active Unknown Family Member Name Dates Details Hemifacial Spasm: Brother Comments:Eye; Status:Active Idiopathic Hypertrophic Suba ortic Stenosis: Brother Status:Active No known health problems: Mo ther, Sibling Comments:mother, 75, well, l luna in [place]; Natali is the 4th of 10 kids, HTN, and kidney stones in several; Status:Active : Father Comments:father at 67 - brain tumor; Status:Active Family history of essential hypertension: Father, Brother(V17.49, Z82.49) Comments:2 brothers w/ HTN, one brother is a doctor; Status:Active Unknown Family Member Name Dates Details Hemifacial Spasm: Brother Comments:Eye; Status:Active Idiopathic Hypertrophic Suba ortic Stenosis: Brother Status:Active No known health problems: Mo ther, Sibling Comments:mother, 75, well, l [place]una in [place]; Natali is the 4th of 10 kids, HTN, and kidney stones in several; Status:Active : Father Comments:father at 67 - brain tumor; Status:Active Family history of essential hypertension: Father, Brother(V17.49, Z82.49) Comments:2 brothers w/ HTN, one brother is a doctor; Status:Active Unknown Family Member Name Dates Details Hemifacial Spasm: Brother Comments:Eye; Status:Active Idiopathic Hypertrophic Suba ortic Stenosis: Brother Status:Active No known health problems: Mo ther, Sibling Comments:mother, 75, well, l luna in [place]; Natali is the 4th of 10 kids, HTN, and kidney stones in several; Status:Active : Father Comments:father at 67 - brain tumor; Status:Active Family history of essential hypertension: Father, Brother(V17.49, Z82.49) Comments:2 brothers w/ HTN, one brother is a doctor; Status:Active Unknown Family Member Name Dates Details Hemifacial Spasm: Brother Comments:Eye; Status:Active Idiopathic Hypertrophic Suba ortic Stenosis: Brother Status:Active No known health problems: Mo ther, Sibling Comments:mother, 75, well, l luna in [place]; Natali is the 4th of 10 kids, HTN, and kidney stones in several; Status:Active : Father Comments:father at 67 - brain tumor; Status:Active Family history of essential hypertension: Father, Brother(V17.49, Z82.49) Comments:2 brothers w/ HTN, one brother is a doctor; Status:Active Unknown Family Member Name Dates Details Hemifacial Spasm: Brother Comments:Eye; Status:Active Idiopathic Hypertrophic Suba ortic Stenosis: Brother Status:Active No known health problems: Mo ther, Sibling Comments:mother, 75, well, l luna in [place]; Natali is the 4th of 10 kids, HTN, and kidney stones in several; Status:Active : Father Comments:father at 67 - brain tumor; Status:Active Family history of essential hypertension: Father, Brother(V17.49, Z82.49) Comments:2 brothers w/ HTN, one brother is a doctor; Status:Active Unknown Family Member Name Dates Details Hemifacial Spasm: Brother Comments:Eye; Status:Active Idiopathic Hypertrophic Suba ortic Stenosis: Brother Status:Active No known health problems: Mo ther, Sibling Comments:mother, 75, well, l luna in [place]; Natali is the 4th of 10 kids, HTN, and kidney stones in several; Status:Active : Father Comments:father at 67 - brain tumor; Status:Active Family history of essential hypertension: Father, Brother(V17.49, Z82.49) Comments:2 brothers w/ HTN, one brother is a doctor; Status:Active Unknown Family Member Name Dates Details Hemifacial Spasm: Brother Comments:Eye; Status:Active Idiopathic Hypertrophic Suba ortic Stenosis: Brother Status:Active No known health problems: Mo ther, Sibling Comments:mother, 75, well, l luna in [place]; Natali is the 4th of 10 kids, HTN, and kidney stones in several; Status:Active : Father Comments:father at 67 - brain tumor; Status:Active Family history of essential hypertension: Father, Brother(V17.49, Z82.49) Comments:2 brothers w/ HTN, one brother is a doctor; Status:Active Unknown Family Member Name Dates Details Hemifacial Spasm: Brother Comments:Eye; Status:Active Idiopathic Hypertrophic Suba ortic Stenosis: Brother Status:Active No known health problems: Mo ther, Sibling Comments:mother, 75, well, l luna in [place]; Natlai is the 4th of 10 kids, HTN, and kidney stones in several; Status:Active : Father Comments:father at 67 - brain tumor; Status:Active Family history of essential hypertension: Father, Brother(V17.49, Z82.49) Comments:2 brothers w/ HTN, one brother is a doctor; Status:Active Unknown Family Member Name Dates Details No known health problems: Mo ther, Sibling Comments:mother, 75, well, l luna in [place]; Natali is the 4th of 10 kids, HTN, and kidney stones in several; Status:Active : Father Comments:father at 67 - brain tumor; Status:Active Family history of essential hypertension: Father, Brother(V17.49, Z82.49) Comments:2 brothers w/ HTN, one brother is a doctor; Status:Active Idiopathic Hypertrophic Suba ortic Stenosis: Brother Status:Active Hemifacial Spasm: Brother Comments:Eye; Status:Active Chief Complaint Patient is here for a physical.Patient is here for a physical.Patient is here for a physical.The patient is here today for a possible gall bladder issue. Patient is here for a 3 week follow up.Patient is here for a 3 week follow up. Patient is here for a 3 week follow up.FUV- Sleep Study results.Patient is here for a 3 week follow up.3 Month Follow up- DME, Pt doing well with cpap machine. Patient is here for follow up visitPatient is here for follow up visitPatient is here to discuss fainting last weekPatient is here to discuss fainting last week Patient is here to discuss fainting last weekPatient is here for annual physical Right upper quadrant pain Summary Purpose Advance Directives No Advanced Directives Records FoundDocuments on File Type Date Recorded Patient Core Feeder Expl anation Advance Directive(s) 01/08/2021 7:34 AM Reason for Referral Specialty Diagnoses / Procedures Referred By Victor M mayes Referred To Contact Gastroenterology Diagnoses Benign neoplasm of colon, unspecified part of colon Procedures Colonoscopy Screening Colonoscopy Screening AZ COLONOSCOPY FLX DX W/COLLJ SPEC WHEN PFRMD [place] COLON CA SCRN NOT HI RSK IND AZ COLORECTAL SCRN; HI RISK IND [place] COLONOSCOPY W/BIOPSY SINGLE/MULTIPLE [place] COLSC FLX W/RMVL OF TUMOR POLYP LESION SNARE TQ [place] COLSC FLX W/REMOVAL LESION BY HOT BX FORCEPS Jhoan Roberto MD [address] [facility], [address] [place] [address] Referral ID Status Reason Start Date Expiration Date V isits Requested Visits Authorized [id number] Authorized 01/01/2023 06/30/2023 1 1 Specialty Diagnoses / Procedures Referred By Victor M mayes Referred To Contact Diagnoses Other polyneuropathy Procedures EMG & nerve conduction Kenzie Elizondo, FLOWER P[employer]ER[employer] C[employer] WORKER [address] [facility], [address] [place] [address] Referral ID Status Reason Start Date Expiration Date V isits Requested Visits Authorized [id number] Pending Review 01/21/2023 07/20/2023 1 1 Specialty Diagnoses / Procedures Referred By Contac t Referred To Contact Radiology Diagnoses Closed nondisplaced fracture of base of fifth metacarpal bone of left hand, initial encounter Procedures XR hand left 3+ views Jarod Ghosh MD [address] [facility], [address] [place] [address] Referral ID Status Reason Start Date Expiration Date Visits Requested Visits Authorized [id number] Authorized Perform Procedure 05/13/2023 05/12/2024 1 1 Specialty Diagnoses / Procedures Referred By Contac t Referred To Contact Radiology Diagnoses Gall bladder polyp Procedures US abdomen complete Jhoan Roberto MD [address] [facility], [address] [place] [address] Referral ID Status Reason Start Date Expiration Date Visits Requested Visits Authorized [id number] Authorized Perform Procedure 3 03/17/2024 1 1 Additional Source Comments Reason for Visit (unrecogniz ed section and content) Reason Comments hit OS Reason Onset Date Comments Refill Request 04/25/2022 Reason Comments Refill Request Reason Comments Follow-up Specialty Diagnoses / Procedures Referred By Contac t Referred To Contact Diagnoses Benign neoplasm of colon, unspecified Procedures [place] COLONOSCOPY FLX DX W/COLLJ SPEC WHEN [facility]MD [facility] [address] [facility] [address] [place] [address] Referral ID Status Reason Start Date Expiration Date Visits Re quested Visits Authorized [id number] 1 1 Reason Comments Acne Suspicious Skin Lesion Reason Comments FMLA Specialty Diagnoses / Procedures Referred By Contac t Referred To Contact Diagnoses Other polyneuropathy Procedures EMG & nerve conduction Kenzie Elizondo, FL[employer] P[employer] WORKER [address] [facility] [place] [address] Referral ID Status Reason Start Date Expiration Date V isits Requested Visits Authorized [id number] Pending Review 01/21/2023 07/20/2023 1 1 Reason Comments Pain Specialty Diagnoses / Procedures Referred By Contac t Referred To Contact Radiology Diagnoses Closed nondisplaced fracture of base of fifth metacarpal bone of left hand, initial encounter Procedures XR hand left 3+ views Jarod Ghosh MD [address] [facility], [address] [place] [id number] Referral ID Status Reason Start Date Expiration Date Visits Requested Visits Authorized [id number] Authorized Perform Procedure 05/13/2023 05/12/2024 1 1 Specialty Diagnoses / Procedures Referred By Contac t Referred To Contact Radiology Diagnoses Gall bladder polyp Procedures US abdomen complete Jhoan Roberto MD [address] [facility], [facility] [address] [place] [id number] Referral ID Status Reason Start Date Expiration Date Visits Requested Visits Authorized [id number] Authorized Perform Procedure 3 03/17/2024 1 1 Reason Comments Forms/questionnaires Disability paperwor k Back Pain Upper and lower back pain. Wants PT order Reason Comments Skin Check annual Reason Comments Well Woman Last pap (ascus) and hpv (neg) 01/2021 Reason Onset Date Comments Detoxification 10/15/2023 Reason Comments Consult INFORMATION SOURCE (unrecogn ized section and content) DATE CREATED AUTHOR 08/06/2021 [facility] DATE CREATED AUTHOR AUTHOR'S ORGANIZ ATION 12/05/2022 [facility] DATE CREATED AUTHOR AUTHOR'S ORGANIZ ATION 12/06/2022 [facility] DATE CREATED AUTHOR AUTHOR'S ORGANIZ ATION 01/02/2023 [facility] DATE CREATED AUTHOR AUTHOR'S ORGANIZ ATION 05/17/2023 [facility] DATE CREATED AUTHOR AUTHOR'S ORGANIZ ATION 05/26/2023 [facility] DATE CREATED AUTHOR AUTHOR'S ORGANIZ ATION 10/18/2023 [facility] DATE CREATED AUTHOR AUTHOR'S ORGANIZ ATION 10/26/2023 [facility] DATE CREATED AUTHOR AUTHOR'S ORGANIZ ATION 11/02/2023 [facility] DATE CREATED AUTHOR AUTHOR'S ORGANIZ ATION 11/03/2023 [facility] DATE CREATED AUTHOR AUTHOR'S ORGANIZ ATION 11/05/2023 [facility] DATE CREATED AUTHOR AUTHOR'S ORGANIZ ATION 11/06/2023 [facility] DATE CREATED AUTHOR AUTHOR'S ORGANIZ ATION 11/06/2023 [facility] DATE CREATED AUTHOR AUTHOR'S ORGANIZ ATION 11/30/2023 [facility] Source Comments (unrecognize d section and content) In the event this informatio n is protected by the Federal Confidentiality of Alcohol and Drug Abuse Patient Records regulations: The Federal rules restrict any use of the information to criminally investigate or prosecute any alcohol or drug abuse patient.[place]ervilleIn the event this information is protected by the Federal Confidentiality of Alcohol and Drug Abuse Patient Records regulations: The Federal rules restrict any use of the information to criminally investigate or prosecute any alcohol or drug abuse patient.[place]ervilleIn the event this information is protected by the Federal Confidentiality of Alcohol and Drug Abuse Patient Records regulations: The Federal rules restrict any use of the information to criminally investigate or prosecute any alcohol or drug abuse patient.[place]ervilleIn the event this information is protected by the Federal Confidentiality of Alcohol and Drug Abuse Patient Records regulations: The Federal rules restrict any use of the information to criminally investigate or prosecute any alcohol or drug abuse patient.[place]ervilleIn the event this information is protected by the Federal Confidentiality of Alcohol and Drug Abuse Patient Records regulations: The Federal rules restrict any use of the information to criminally investigate or prosecute any alcohol or drug abuse patient.[place]ervilleIn the event this information is protected by the Federal Confidentiality of Alcohol and Drug Abuse Patient Records regulations: The Federal rules restrict any use of the information to criminally investigate or prosecute any alcohol or drug abuse patient.[place]ervilleIn the event this information is protected by the Federal Confidentiality of Alcohol and Drug Abuse Patient Records regulations: The Federal rules restrict any use of the information to criminally investigate or prosecute any alcohol or drug abuse patient.[place]ervilleIn the event this information is protected by the Federal Confidentiality of Alcohol and Drug Abuse Patient Records regulations: The Federal rules restrict any use of the information to criminally investigate or prosecute any alcohol or drug abuse patient.[place]ervilleIn the event this information is protected by the Federal Confidentiality of Alcohol and Drug Abuse Patient Records regulations: The Federal rules restrict any use of the information to criminally investigate or prosecute any alcohol or drug abuse patient.CentervilleIn the event this information is protected by the Federal Confidentiality of Alcohol and Drug Abuse Patient Records regulations: The Federal rules restrict any use of the information to criminally investigate or prosecute any alcohol or drug abuse patient.[place] Care Teams (unrecognized sec tion and content) Sanitary Napkin Machine Tender Relationship Specialty Start Date End Date Jhoan Roberto MD PCP - General Internal Medicine 08/19/11 Sanitary Napkin Machine Tender Relationship Specialty Start Date End Date Jhoan Roberto MD PCP - General Internal Medicine 08/19/11 Sanitary Napkin Machine Tender Relationship Specialty Start Date End Date Jhoan Roberto MD PCP - General Internal Medicine 08/19/11 Sanitary Napkin Machine Tender Relationship Specialty Start Date End Date Jhoan Roberto MD PCP - General Internal Medicine 08/19/11 Sanitary Napkin Machine Tender Relationship Specialty Start Date End Date Jhoan Roberto MD [address] [facility], [address] [place] [address] PCP - General 12/03/09 Jhoan Roberto MD [address] [facility], [address] [place] [address] PCP - MMO ACO PCP 07/19/21 Sanitary Napkin Machine Tender Relationship Specialty Start Date End Date Jhoan Roberto MD [address] [facility], [address] [address] PCP - General 12/03/09 Jhoan Roberto MD [address] [facility], [facility] [address] [place] [address] PCP - MMO ACO PCP 07/19/21 Sanitary Napkin Machine Tender Relationship Specialty Start Date End Date Jhoan Roberto MD [address] [facility], [address] [place] [address] PCP - General 12/03/09 Jhoan Roberto MD [address] [facility], [address] [place] [address] PCP - MMO ACO PCP 07/19/21 Sanitary Napkin Machine Tender Relationship Specialty Start Date End Date EyJhoan hagan MD [address] [facility], [address] [place] [address] PCP - General 12/03/09 Jhoan Roberto MD [address] [facility], [address] [place] [address] PCP - MMO ACO PCP 07/19/21 Sanitary Napkin Machine Tender Relationship Specialty Start Date End Date EyJhoan hagan MD [address] [facility], [address] [place] [address] PCP - General 12/03/09 Jhoan Roberto MD [address] [facility], [address] [place] [address] PCP - MMO ACO PCP 07/19/21 Sanitary Napkin Machine Tender Relationship Specialty Start Date End Date Jhoan Roberto MD [address] [facility], [address] [place] [address] PCP - General 12/03/09 Jhoan Roberto MD [address] [facility], [address] [place] [address] PCP - MMO ACO PCP 07/19/21 Sanitary Napkin Machine Tender Relationship Specialty Start Date End Date Jhoan Roberto MD [address] [facility], [address] [place] [address] PCP - General 12/03/09 Jhoan Roberto MD [address] [facility], [address] [address] PCP - MMO ACO PCP 07/19/21 Sanitary Napkin Machine Tender Relationship Specialty Start Date End Date Jhoan Roberto MD [address] [facility], [address] [address] PCP - General 12/03/09 Jhoan Roberto MD [address] [facility], [address] [address] PCP - MMO ACO PCP 07/19/21 Sanitary Napkin Machine Tender Relationship Specialty Start Date End Date Jhoan Roberto MD PCP - General Internal Medicine 08/19/11 Sanitary Napkin Machine Tender Relationship Specialty Start Date End Date Jhoan Roberto MD PCP - General Internal Medicine 08/19/11 Sanitary Napkin Machine Tender Relationship Specialty Start Date End Date Jhoan Roberto MD [address] [facility], [address] [address] PCP - General 12/03/09 Jhoan Roberto MD [address] [facility], [address] [address] PCP - MMO ACO PCP 07/19/21 Sanitary Napkin Machine Tender Relationship Specialty Start Date End Date Jhoan Roberto MD [address] [facility], [address] [place] [address] PCP - General 12/03/09 Jhoan Roberto MD [address] [facility], [address] [place] [address] PCP - MMO ACO PCP 07/19/21 Sanitary Napkin Machine Tender Relationship Specialty Start Date End Date Jhoan Roberto MD [address] [facility], [address] [place] [address] PCP - General 12/03/09 Jhoan Roberto MD [address] [facility], [address] [place] [address] PCP - MMO ACO PCP 07/19/21 Sanitary Napkin Machine Tender Relationship Specialty Start Date End Date Jhoan Roberto MD PCP - General Internal Medicine 08/19/11 Sanitary Napkin Machine Tender Relationship Specialty Start Date End Date Jhoan Roberto MD PCP - General Internal Medicine 08/19/11 Sanitary Napkin Machine Tender Relationship Specialty Start Date End Date Jhoan Roberto MD PCP - General Internal Medicine 08/19/11 FOR RECORDS PERTAINING TO PATIENTS WHO ARE OR HAVE BEEN ENROLLED IN A CHEMICAL DEPENDENCY/SUBSTANCEABUSE PROGRAM, SOME INFORMATION MAY BE OMITTED. This clinical summary was aggregated from multiple sources. Caution should be exercised in using it in the provision of clinical care. This summary normalizes information from multiple sources, and as a consequence, information in this document may materially change the coding, format and clinical context of patient data. In addition, data may be omitted in some cases. CLINICAL DECISIONS SHOULD BE BASED ON THE PRIMARY CLINICAL RECORDS. [facility]. provides no warranty or guarantee of the accuracy or completeness of information in this document.
--- NOTE | 2023-12-07 18:40 | ED.GENADUL1 ---
HPI HPI - General Adult General Chief complaint: Urogenital-Female Stated complaint: UTI Time Seen by Provider: 12/07/23 18:31 Source: patient Mode of arrival: walk-in Limitations: no limitations Related Data Allergies Allergy/AdvReac Type Severity Reaction Status Date / Time No Known Drug Allergies Allergy Verified 12/07/23 18:26 Opioid HPI Opioid Management Most Recent Opioid Data: Last MAR Pain Assessment 12/07/23 18:57 Exam Constitutional Vital Signs, click to edit/add: Last Vital Signs Temp 98.9 F 12/07/23 20:40 Pulse 111 H 12/07/23 20:40 Resp 16 12/07/23 20:40 BP 115/75 12/07/23 20:40 Pulse Ox 96 12/07/23 20:40 O2 Del Method Room Air 12/07/23 18:26 Course Vital Signs Vital signs: Vital Signs Temperature 101.8 F H 12/07/23 18:26 Pulse Rate 115 H 12/07/23 18:26 Respiratory Rate 18 12/07/23 18:26 Blood Pressure 211/119 H 12/07/23 18:26 Pulse Oximetry 97 12/07/23 18:26 Oxygen Delivery Method Room Air 12/07/23 18:26 Temperature 98.9 F 12/07/23 20:40 Pulse Rate 111 H 12/07/23 20:40 Respiratory Rate 16 12/07/23 20:40 Blood Pressure 115/75 12/07/23 20:40 Pulse Oximetry 96 12/07/23 20:40 Oxygen Delivery Method Room Air 12/07/23 18:26 Medical Decision Making MDM Narrative Medical decision making narrative: On arrival to the emergency department, patient was febrile, tachycardic. IV established with sepsis labs drawn, including blood cultures. Urine specimen is contaminated but nitrate positive. Patient with mild leukocytosis, stable anemia and critical potassium level of 2.8. She apparently takes potassium daily and has a history of low potassium. She was given oral K-Lyte. Lactic acid is elevated. Patient treated with IV Rocephin. CT of the abdomen and pelvis shows punctate nephrolithiasis with no ureteral stone. Patient does have evidence of body wall anasarca and diverticulosis with no diverticulitis. Due to failure of outpatient treatment and abnormal vital signs consistent with sepsis and clinical diagnosis of pyelonephritis, patient admitted for further evaluation and treatment. Fever has improved after IV fluids, Toradol and Tylenol. Patient was also given Pyridium for urinary symptoms. Vital signs have significantly improved on reevaluation, she remains mildly tachycardic, stable at time of admission and reevaluation by attending physician. SHARED APC VISIT, PHYSICIAN ATTESTATION: [id number] I performed a substantive part of the MDM during the patient?s E/M visit. I personally evaluated and examined the patient. I personally made or approved the documented management plan and acknowledge its risk of complications. Medical Records Medical records reviewed: Yes I reviewed the patient's medical records Lab Data Lab results reviewed: Yes I reviewed the patient's lab results Labs: Lab Results 12/07/23 12/07/23 12/07/23 Range/Units 18:50 18:55 19:06 WBC 12.0 H (4.0-11.0) 10^3/uL RBC 3.07 L (4.20-5.40) 10^6/uL Hgb 9.7 L (12.0-16.0) g/dL Hct 30.5 L (36.0-48.0) % MCV 99.3 H (81.0-99.0) fL MCH 31.6 (26.7-34.0) pg MCHC 31.8 (29.9-35.2) g/dL RDW 14.1 (11.0-15.0) % Plt Count 440 (150-450) 10^3/uL MPV 8.9 L (9.5-13.5) fL Neut % (Auto) 89.2 H (43.0-75.0) % Lymph % (Auto) 4.2 L (20.5-60.0) % [place] % (Auto) 4.1 (1.7-12.0) % Eos % (Auto) 1.3 (0.9-7.0) % Baso % (Auto) 0.6 (0.2-2.0) % Neut # (Auto) 10.7 H (1.4-6.5) 10^3/uL Lymph # (Auto) 0.5 L (1.2-3.8) 10^3/uL Lawrence # (Auto) 0.5 (0.3-0.8) 10^3/uL Eos # (Auto) 0.2 (0.0-0.7) 10^3/uL Baso # (Auto) 0.1 (0.0-0.1) 10^3/uL Abs Immat Gran (auto) 0.07 H (0.00-0.03) 10^3/uL Imm/Tot Granulo (auto) 0.6 H (0.0-0.5) % ESR 48 H (<=30) mm/hr VBG pH 7.422 (7.330-7.430) VBG pCO2 32.8 L (40.0-52.0) mmHg Sodium 135 L (136-145) mmol/L Potassium 2.8 L* (3.5-5.1) mmol/L Chloride 101 (98-107) mmol/L Carbon Dioxide 23.2 (21.0-32.0) mmol/L Anion Gap 13.6 BUN 8.0 (7.0-18.0) mg/dL Creatinine 0.87 (0.55-1.02) mg/dL Est GFR ( Amer) >60 (>=60) Est GFR (Non-Af Amer) >60 (>=60) BUN/Creatinine Ratio 9.2 Glucose 122 H (74-106) mg/dL Lactate 2.2 H* (0.4-2.0) mmol/L Calcium 8.1 L (8.5-10.1) mg/dL Total Bilirubin 0.4 (0.2-1.0) mg/dL AST 33 (15-37) U/L ALT 32 (14-59) U/L Alkaline Phosphatase 51 (46-116) U/L C-Reactive Protein 6.01 H (<=0.50) mg/dL Total Protein 6.6 (6.4-8.2) g/dL Albumin 2.8 L (3.4-5.0) g/dL Globulin 3.8 g/dL Albumin/Globulin Ratio 0.7 Urine Color Dk. orange (YELLOW) Urine Clarity Clear (CLEAR) Urine pH 5.5 (5.0-9.0) Ur Specific [place] 1.025 (1.005-1.025) Urine Protein Trace (NEG/TRACE) mg/dL Urine Glucose (UA) Negative (NEGATIVE) mg/dL Urine Ketones Trace A (NEGATIVE) mg/dL Urine Occult Blood Negative (NEGATIVE) Urine Nitrite Positive A (NEGATIVE) Urine Bilirubin Negative (NEGATIVE) Urine Urobilinogen 1.0 (0.2-1.0) EU/dL Ur Leukocyte Esterase Negative (NEGATIVE) Urine RBC 0-2 (0-2) #/HPF Urine WBC 2-5 A (NONE SEEN) #/HPF Ur Squamous Epith Cells Many A (NONE/RARE) #/LPF Ur Transition Epith Cell Rare A (NONE SEEN) #/LPF Urine Crystals None seen (None Seen) #/HPF Urine Bacteria None seen (NONE SEEN) #/HPF Urine Casts None seen (NONE SEEN) #/LPF Urine Mucus None seen (NONE SEEN) Ur Culture Indicated? Yes SARS-CoV-2 Ag (CV2AG) Negative (NEGATIVE) Imaging Data CT scan - abdomen: Attestation: I have reviewed the pertinent imaging results. Radiologist's impression: ITS Impressions Abdomen/Pelvis CT 12/07/23 18:33 IMPRESSION: 1. Hepatic steatosis. 2. Punctate nonobstructive right nephrolithiasis. 3. Sigmoid diverticulosis without acute diverticulitis. 4. Right lower lobe atelectasis. Electronically authenticated by: CHAR ROMERO Date: 12/07/2023 20:50 Discharge Plan Discharge Chief Complaint: Urogenital-Female Patient Disposition: Admitted As Inpatient Time of Disposition Decision: 21:01 Print Language: Irish Referrals: QUE FAITH [Primary Care Provider] - 1 week
[2023-12-07] MEDS: 0.9 % SODIUM CHLORIDE 1,000 ML 999 ML IV (18:56)
[2023-12-07] MEDS: ONDANSETRON PF 4 MG/2 ML VIAL IV (18:57)
[2023-12-07] MEDS: PHENAZOPYRIDINE 100 MG TABLET 200 MG PO (18:57)
[2023-12-07] MEDS: ACETAMINOPHEN 500 MG TABLET 1000 MG PO (18:57)
[2023-12-07] MEDS: KETOROLAC TROMETHAMINE 30 MG/ML VIAL IVP (18:57)
[2023-12-07 19:14] LABS: Basophils Absolute Auto 0.1 10^3/uL (0.0-0.1); Basophils Percent Auto 0.6 % (0.2-2.0); Eosinophils Absolute Auto 0.2 10^3/uL (0.0-0.7); Eosinophils Percent Auto 1.3 % (0.9-7.0); Hematocrit 30.5 % (36.0-48.0); Hemoglobin 9.7 g/dL (12.0-16.0); Immature Granulocytes Abs Auto 0.07 10^3/uL (0.00-0.03); Immature Granulocytes Pct Auto 0.6 % (0.0-0.5); Lymphocytes Absolute Auto 0.5 10^3/uL (1.2-3.8); Lymphocytes Percent Auto 4.2 % (20.5-60.0); Mean Corpuscular HGB Conc 31.8 g/dL (29.9-35.2); Mean Corpuscular Hemoglobin 31.6 pg (26.7-34.0); Mean Corpuscular Volume 99.3 fL (81.0-99.0); Mean Platelet Volume 8.9 fL (9.5-13.5); Monocytes Absolute Auto 0.5 10^3/uL (0.3-0.8); Monocytes Percent Auto 4.1 % (1.7-12.0); Neutrophils Absolute Auto 10.7 10^3/uL (1.4-6.5); Neutrophils Percent Auto 89.2 % (43.0-75.0); Platelet Count 440 10^3/uL (150-450); Red Blood Count 3.07 10^6/uL (4.20-5.40); Red Cell Distribution Width 14.1 % (11.0-15.0)
[2023-12-07 19:15] LABS: PCO2 VBG 32.8 mmHg (40.0-52.0); pH VBG 7.422 (7.330-7.430)
[2023-12-07 19:21] LABS: Bilirubin Urine NEGATIVE (NEGATIVE); Blood Urine NEGATIVE (NEGATIVE); Clarity Urine CLEAR (CLEAR); Color Urine DK. ORANGE (YELLOW); Glucose Urine UA NEGATIVE (NEGATIVE); Ketones Urine TRACE mg/dL (NEGATIVE); Leukocyte Esterase Urine NEGATIVE (NEGATIVE); Nitrite Urine POSITIVE (NEGATIVE); Protein Urine TRACE mg/dL (NEG/TRACE); Specific Gravity Urine 1.025 (1.005-1.025); pH Urine 5.5 (5.0-9.0)
[2023-12-07 19:24] LABS: Urine Microscopic Indicated YES
[2023-12-07 19:24] LABS: Erythrocyte Sedimentation Rate 48 mm/hr (<=30)
[2023-12-07 19:30] LABS: Internal Control Within Normal Limits; SARS-CoV-2 Ag NEGATIVE (NEGATIVE)
[2023-12-07 19:33] LABS: Bacteria Urine NONE SEEN #/HPF (NONE SEEN); Cast Seen? NONE SEEN #/LPF (NONE SEEN); Crystals Seen? None Seen #/HPF (None Seen); Mucus Urine NONE SEEN (NONE SEEN); RBC Urine 0-2 #/HPF (0-2); Squamous Epithelial Cell Urine MANY #/LPF (NONE/RARE); Transitional Epi Cells Urine RARE #/LPF (NONE SEEN); Urine Culture Indicated YES
[2023-12-07 19:41] LABS: Alanine Aminotransferase 32 U/L (14-59); Albumin Globulin Ratio 0.7; Albumin Level 2.8 g/dL (3.4-5.0); Alkaline Phosphatase 51 U/L (46-116); Anion Gap 13.6; Aspartate Amino Transferase 33 U/L (15-37); BUN Creatinine Ratio 9.2; Bilirubin Total 0.4 mg/dL (0.2-1.0); C Reactive Protein 6.01 mg/dL (<=0.50); Calcium 8.1 mg/dL (8.5-10.1); Carbon Dioxide 23.2 mmol/L (21.0-32.0); Chloride 101 mmol/L (98-107); Estimated GFR (African America >60 (>=60); Estimated GFR (Non-African Ame >60 (>=60); Globulin 3.8 g/dL; Glucose 122 mg/dL (74-106); Sodium 135 mmol/L (136-145); Total Protein 6.6 g/dL (6.4-8.2)
[2023-12-07 19:43] LABS: Lactate/Lactic Acid 2.2 mmol/L (0.4-2.0); Potassium 2.8 mmol/L (3.5-5.1)
[2023-12-07] MEDS: POTASSIUM BICARBONATE/CIT 25 MEQ TABLET EFF 50 MEQ PO (20:09)
[2023-12-07] MEDS: CEFTRIAXONE 1,000 MG in 0.9 % SODIUM CHLORIDE 50 ML 100 MG IV (20:11)
--- OUTSIDE RECORDS SUMMARY | 2023-12-07 22:00 | XMS_ITS | CCD ---
Author Organization [facility] Care Team Providers Care Support Specialist Name Role Phone Jhoan Roberto Unavailable Unavailable Jhoan Roberto Unavailable Unavailable Kelly Soto Unavailable Unavailab Kelly Tilley Unavailable Unavailable Onel Whitfield Unavailable Unavailable Ever Eyal U Unavailable Unavailable Jhoan Roberto Unavailable Unavailable Unavailable Huong Landis Unavailable Unavailable Jhoan Roberto MD Primary Care Provider [phone] Jhoan Roberto MD Primary Care Provider [phone] Jhoan Roberto MD Primary Care Provider [phone] Jhoan Roberto MD Primary Care Provider Jhoan [...] Unavailable Jhoan Roberto MD Primary Care Provider [phone] JHOAN ROBERTO Primary Care Unavailable KELLY AMES [...] Primary Care Unavailable ERNANDEZ Attending Unavailable EYRE, JHOAN Primary Care Unavailable Allergies Allergy Classification Reported Allergen(s) Allergy Type Date of Onset Reaction(s) Facility (14 sources) Seasonal allergy; Translations: [SEASONAL ALLERGIES] Allergy to substance 3 Other: See [facility] (16 sources) Pollen; Translations: [POLLEN EXTRACTS] Propensity to adverse reactions 3 Other [facility] Medications Current Medications Medication Drug Class(es) Dates [...] NASE) 50 mcg/actuation nasal spray Use 1 Stitzer in each nostril as needed. 0 Active Comment on above: Use 1 Stitzer in each nostril as needed. hydroCHLOROthiazide 12.5 [...] source) Angiotensin Converting Enzyme Inhibitor Start: 6 [id number] Medication lisinopril lisinopril 20 mg 06/28/2015 Active [...] soap (1 source) Sulfonamide Antibacterial Start: 06-28-2015 [id number] Medication sulfacetamide sodium-sulfur 10 %-5 % (w/w) [...] 09/25/2023 09/24/2024 Active take 1 capsule by [facility] every eight hours as needed tiZANidine HCl [...] Active Start: 01-01-2022 take 1 tablet by [facility] once daily vitamin B complex (Vitamins B [...] gel (2 sources) Lincosamide Antibacterial Start: 10-11-2015 [id number] Medication clindamycin 1.2 % (1 % base)-benzoyl [...] 08/02/2022 02/23/2023 Discontinued (Therapy completed) Start: 06-04-2022 [id number] Medicat ion clindamycin 1 % lotion clindamycin 1 % lotion 1 % 1 Application topically twice a day 06/04/2022 Active (Current) docosahexaenoic acid 120 mg / eicosapentaenoic acid 180 mg oral capsule (20 sources) Start: 01-01-2022 End: 02-23-2023 fish oil concentrate (Presto-3) 120-180 mg capsule Take by mouth. 0 [...] 11-23-2023 Blood Alcohol Concentration 0.079 G/dL Normal [facility] Comment on above: Performed By: #### C BCWD #### [facility] [address] [place] [address] Ethanol [Mass/Vol] 90 mg/dL Normal [facility] Comment on above: Performed By: #### C BCWD #### [facility] [address] [place] [address] Bacterial susceptibility bernal el by [facility] 11-23-2023 Bacterial susceptibility panel MT (Isol) ORDER#: [id number] ORDERED BY: ERNANDEZ SOURCE: Urine Clean Catch COLLECTED: 11/23/23 10:30 ANTIBIOTICS AT ROGELIO.: RECEIVED : 11/23/23 13:58 Culture, Urine FINAL 11/28/23 07:19 Performed at [address] [place] [address] Escherichia coli >100,000 CFU/ML Identification by MALDI-TOF [...] and P. mirabilis S=SUSCEPTIBLE I=INTERMEDIATE R=RESISTANT Normal [facility] Comment on above: Performed By: #### C BCWD #### [facility] [address] [place] [address] CBC With Platelet and Differ entialon 11-23-2023 Basophils (Bld) [#/Vol] 0.0 10*3/uL Normal 0.0-0.2 [facility] Comment on above: Performed By: #### C BCWD #### [facility] [address] [place] [address] Basophils/100 WBC (Bld) 0.4 % Normal [facility] Comment on above: Performed By: #### C BCWD #### [facility] [address] [place] [address] Eosinophils (Bld) [#/Vol] 0.0 10*3/uL Normal 0.0-0.7 [facility] Comment on above: Performed By: #### C BCWD #### [facility] [address] [place] [address] Eosinophils/100 WBC (Bld) 0.1 % Normal [facility] Comment on above: Performed By: #### C BCWD #### [facility] [address] [place] [address] Erythrocyte distribution width (RBC) [Ratio] 14.9 % Critically high 11.5-14.5 [facility] Comment on above: Performed By: #### C BCWD #### [facility] [address] [place] [address] Hematocrit (Bld) [Volume fraction] 34.6 % Low 37.0-47.0 [facility] Comment on above: Performed By: #### C BCWD #### [facility] [address] [place] [address] Hemoglobin (Bld) [Mass/Vol] 11.8 g/dL Low 12.0-16.0 [facility] Comment on above: Performed By: #### C BCWD #### [facility] [address] [place] [address] Lymphocytes (Bld) [#/Vol] 0.4 10*3/uL Low 1.0-4.8 [facility] Comment on above: Performed By: #### C BCWD #### [facility] [address] [place] [address] Lymphocytes/100 WBC (Bld) 5.5 % Normal [facility] Comment on above: Performed By: #### C BCWD #### [facility] [address] [place] [address] MCH (RBC) [Entitic mass] 32.0 pg Critically high 27.0-31.3 [facility] Comment on above: Performed By: #### C BCWD #### [facility] [address] [place] [address] MCHC 34.1 % Normal 33.0-37.0 [facility] Comment on above: Performed By: #### C BCWD #### [facility] [address] [place] [address] MCV (RBC) [Entitic vol] 93.8 fL Normal 79.4-94.8 [facility] Comment on above: Performed By: #### C BCWD #### [facility] [address] [place] [address] Monocytes (Bld) [#/Vol] 0.7 10*3/uL Normal 0.2-0.8 [facility] Comment on above: Performed By: #### C BCWD #### [facility] [address] [place] [address] Monocytes/100 WBC (Bld) 9.0 % Normal [facility] Comment on above: Performed By: #### C BCWD #### [facility] [address] [place] [address] Neutrophils (Bld) [#/Vol] 6.6 10*3/uL Critically high 1.4-6.5 [facility] Comment on above: Performed By: #### C BCWD #### [facility] [address] [place] [address] Neutrophils/100 WBC (Bld) 84.6 % Normal [facility] Comment on above: Performed By: #### C BCWD #### [facility] [address] [place] [address] Platelets (Bld) [#/Vol] 120 10*3/uL Low 130-400 [facility] Comment on above: Performed By: #### C BCWD #### [facility] [address] [place] [address] RBC (Bld) [#/Vol] 3.69 10*6/uL Low 4.20-5.40 [facility] Comment on above: Performed By: #### C BCWD #### [facility] [address] [place] [address] WBC (Bld) [#/Vol] 7.8 10*3/uL Normal 4.8-10.8 [facility] Comment on above: Performed By: #### C BCWD #### [facility] [address] [place] [address] CT ABDOMEN PELVIS W IV CONTR Long [...] Vitor Villafana DO 11/23/23 Final result Normal [facility] CTA CHEST W WO CONTRASTon CTA CHEST [...] Renaldo Smith MD 11/23/23 Final result Normal [facility] Comprehensive Metabolic Pane mak 11-23-2023 Albumin [Mass/Vol] 3.9 g/dL Normal 3.5-4.6 [facility] Comment on above: Order Comment: CALL [facility] tel. [phone],K results called to and read back by Eyad Feldman, 11/23/2023 11:50, by ARMIN Performed By: #### C BCWD #### [facility] [address] [place] [address] ALP [Catalytic activity/Vol] 88 U/L Normal 40-130 [facility] Comment on above: Order Comment: CALL [facility] tel. [phone],K results called to and read back by Eyad Feldman, 11/23/2023 11:50, by ARMIN Performed By: #### C BCWD #### [facility] [address] [place] [address] ALT [Catalytic activity/Vol] 48 U/L Critically high 0-33 [facility] Comment on above: Order Comment: CALL [facility] tel. [phone],K results called to and read back by Eyad Feldman, 11/23/2023 11:50, by ARMIN Performed By: #### C BCWD #### [facility] [address] [place] [address] Anion gap [Moles/Vol] 28 mmol/L Critically high 9-15 [facility] Comment on above: Order Comment: CALL [facility] tel. [phone],K results called to and read back by Eyad Feldman, 11/23/2023 11:50, by ARMIN Performed By: #### C BCWD #### [facility] [address] [place] [address] AST [Catalytic activity/Vol] 92 U/L Critically high 0-35 [facility] Comment on above: Order Comment: CALL [facility] tel. [phone],K results called to and read back by Eyad Feldman, 11/23/2023 11:50, by ARMIN Performed By: #### C BCWD #### [facility] [address] [place] [address] Bilirubin [Mass/Vol] 1.0 mg/dL Critically high 0.2-0.7 [facility] Comment on above: Order Comment: CALL [facility] tel. [phone],K results called to and read back by Eyad Feldman, 11/23/2023 11:50, by ARMIN Performed By: #### C BCWD #### [facility] [address] [place] [address] Calcium [Mass/Vol] 9.2 mg/dL Normal 8.5-9.9 [facility] Comment on above: Order Comment: CALL [facility] tel. [phone],K results called to and read back by Eyad Feldman, 11/23/2023 11:50, by ARMIN Performed By: #### C BCWD #### [facility] [address] [place] [address] Chloride [Moles/Vol] 86 mmol/L Low 95-107 [facility] Comment on above: Order Comment: CALL [facility] tel. [phone],K results called to and read back by Eyad Feldman, 11/23/2023 11:50, by ARMIN Performed By: #### C BCWD #### [facility] [address] [place] [address] CO2 [Moles/Vol] 20 mmol/L Normal 20-31 [facility] Comment on above: Order Comment: CALL [facility] tel. [phone],K results called to and read back by Eyad Feldman, 11/23/2023 11:50, by ARMIN Performed By: #### C BCWD #### [facility] [address] [place] [address] Creatinine [Mass/Vol] 1.31 mg/dL Critically high 0.50-0.90 [facility] Comment on above: Order Comment: CALL [facility] tel. [phone],K results called to and read back by Eyad Feldman, 11/23/2023 11:50, by ARMIN Performed By: #### C BCWD #### [facility] [address] [place] [address] GFR 48.6 Low >60 [facility] Comment on above: Order Comment: CALL [facility] tel. [phone],K results called to and read back by [...] secretion. Performed By: #### C BCWD #### [facility] [address] [place] [address] Globulin (S) [Mass/Vol] 3.2 g/dL Normal 2.3-3.5 [facility] Comment on above: Order Comment: CALL [facility] tel. [phone],K results called to and read back by Eyad Feldman, 11/23/2023 11:50, by ARMIN Performed By: #### C BCWD #### [facility] [address] [place] [address] Glucose [Mass/Vol] 125 mg/dL Critically high 70-99 [facility] Comment on above: Order Comment: CALL [facility] tel. [phone],K results called to and read back by Eyad Feldman, 11/23/2023 11:50, by ARMIN Performed By: #### C BCWD #### [facility] [address] [place] [address] Potassium [Moles/Vol] 2.7 mmol/L Critically low 3.4-4.9 [facility] Comment on above: Order Comment: CALL [facility] tel. [phone],K results called to and read back by Eyad Feldman, 11/23/2023 11:50, by ARMIN Performed By: #### C BCWD #### [facility] [address] [place] [address] Protein [Mass/Vol] 7.1 g/dL Normal 6.3-8.0 [facility] Comment on above: Order Comment: CALL [facility] tel. [phone],K results called to and read back by Eyad Feldman, 11/23/2023 11:50, by ARMIN Performed By: #### C BCWD #### [facility] [address] [place] [address] Sodium [Moles/Vol] 134 mmol/L Low 135-144 [facility] Comment on above: Order Comment: CALL [facility] tel. [phone],K results called to and read back by Eyad Feldman, 11/23/2023 11:50, by ARMIN Performed By: #### C BCWD #### [facility] [address] [place] [address] Urea nitrogen [Mass/Vol] 17 mg/dL Normal 6-20 [facility] Comment on above: Order Comment: CALL [facility] tel. [phone],K results called to and read back by Eyad Feldman, 11/23/2023 11:50, by ARMIN Performed By: #### C BCWD #### [facility] [address] [place] [address] Culture, Bloodon 11-23-2023 Microscopic examination of blood, culture ORDER#: [id number] ORDERED BY: ERNANDEZ SOURCE: Blood COLLECTED: 11/23/23 14:16 ANTIBIOTICS AT ROGELIO.: RECEIVED : 11/23/23 14:18 Culture, Blood FINAL 11/28/23 16:15 No growth after [address] [facility] Comment on above: Performed By: #### C XBL #### [facility] [address] [place] [id number] Culture, Blood 2on Culture, Blood 2 ORDER#: [id number] ORDERED BY: ERNANDEZ SOURCE: Blood Blood COLLECTED: 11/23/23 14:16 ANTIBIOTICS AT ROGELIO.: RECEIVED : 11/23/23 14:18 Culture, Blood 2 FINAL 11/28/23 16:15 No growth after [address] [facility] Comment on above: Performed By: #### C XBL2 #### [facility] [address] [place] [address] Culture, Urineon 11-23-2023 Culture, Urine ORDER#: [id number] ORDERED BY: ERNANDEZ SOURCE: Urine Clean Catch COLLECTED: 11/23/23 10:30 ANTIBIOTICS AT ROGELIO.: RECEIVED : 11/23/23 13:58 Culture, Urine PRELIM 11/27/23 10:32 [place] [address] Escherichia coli >100,000 CFU/ML Identification by MALDI-TOF [facility] Comment on above: Performed By: #### C BCWD #### [facility] [address] [place] [address] D-Dimer Quanton 11-23-2023 D-Dimer Quant 1.62 mg/L FEU Critically high 0.00-0.50 [facility] Comment on above: Order Comment: CALL [facility] tel. [phone], DIMER results called to and read back by DR MERIDA, 11/23/2023 11:55, by JAMES Result Comment: VTE (DVT or PE) cut-off = 0.50 mg/L FEU Performed By: #### D TON #### [facility] [address] [place] [address] High Sensitivity Troponin To n 11-23-2023 High Sensitivity Troponin T 12 ng/L Normal 0-19 [facility] Comment on above: Result Comment: High Sensitivity Troponin values cannot be compared with other Troponin methodologies. Performed By: #### T RP5 #### [facility] [address] [place] [address] High Sensitivity Troponin T 14 ng/L Normal 0-19 [facility] Comment on above: Result Comment: High Sensitivity Troponin values cannot be compared with other Troponin methodologies. Performed By: #### C BCWD #### [facility] [address] [place] [address] Lipaseon 11-23-2023 Lipase [Catalytic activity/Vol] 38 U/L Normal 12-95 [facility] Comment on above: Order Comment: CALL [facility] tel. [phone],K results called to and read back by Eyad Feldman, 11/23/2023 11:50, by ARMIN Performed By: #### C BCWD #### [facility] [address] [place] [address] Magnesiumon 11-23-2023 Magnesium [Mass/Vol] 1.6 mg/dL Low 1.7-2.4 [facility] Comment on above: Order Comment: CALL [facility] tel. [phone],K results called to and read back by Eyad Feldman, 11/23/2023 11:50, by ARMIN Performed By: #### C BCWD #### [facility] [address] [place] [address] Partial Thromboplastin Timeo n 11-23-2023 aPTT Coag (Bld) [Time] 26.3 s Normal 24.4-36.8 [facility] Comment on above: Result Comment: Effe ctive 02/22/2020: Heparin Therapeutic Range: 64.0 ? 98.0 seconds. Performed By: #### P TT #### [facility] [address] [place] [address] Prothrombin Timeon INR Coag (PPP) [Relative time] 1.0 {INR} Normal [facility] Comment on above: Performed By: #### P T #### [facility] [address] [place] [address] PT Coag (PPP) [Time] 13.3 s Normal 12.3-14.9 [facility] Comment on above: Performed By: #### P T #### [facility] [address] [place] [address] UR Drugs of Abuse Panelon Drug Screen Comment see below Normal [facility] Comment on above: Result Comment: This method is a screening test to detect only these drug classes as part of a medical workup. Confirmatory testing by another method should be ordered if clinically indicated. Performed By: #### U DRGS #### [facility] [address] [place] [address] UR Benzo Screen Positive Abnormal Negative < [facility] Comment on above: Performed By: #### U DRGS #### [facility] [address] [place] [address] UR Amphetamines Screen Negative Normal Negative < [facility] Comment on above: Performed By: #### U DRGS #### [facility] [address] [place] [address] UR Barbiturates Screen Negative Normal Negative < [facility] Comment on above: Performed By: #### U DRGS #### [facility] [address] [place] [address] UR Cannabinoids Screen Negative Normal Negative < [facility] Comment on above: Performed By: #### U DRGS #### [facility] [address] [place] [address] UR Cocaine Screen Negative Normal Negative < [facility] Comment on above: Performed By: #### U DRGS #### [facility] [address] [place] [address] UR Fentanyl Screen Negative Normal Negative < [facility] Comment on above: Performed By: #### U DRGS #### [facility] [address] [place] [address] UR Methadone Screen Negative Normal Negative < [facility] Comment on above: Performed By: #### U DRGS #### [facility] [address] [place] [address] UR Opiates Screen Negative Normal Negative < [facility] Comment on above: Performed By: #### U DRGS #### [facility] [address] [place] [address] UR Oxycodone Screen Negative Normal Negative < [facility] Comment on above: Performed By: #### U DRGS #### [facility] [address] [place] [address] UR PCP Screen Negative Normal Negative < [facility] Comment on above: Performed By: #### U DRGS #### [facility] [address] [place] [address] UR Propoxyphene Screen Negative Normal Negative < [facility] Comment on above: Performed By: #### U DRGS #### [facility] [address] [place] [address] Urinalysis, reflex to cultur josr 11-23-2023 Urine Reflexed to Culture Yes Normal [facility] Comment on above: Performed By: #### U AR #### [facility] [address] [place] [address] Bilirubin Ql (U) Negative Normal Negative [facility] Comment on above: Performed By: #### U AR #### [facility] [address] [place] [address] Clarity (U) CLOUDY Abnormal Clear [facility] Comment on above: Performed By: #### U AR #### [facility] [address] [place] [address] Color (U) Yellow Normal Straw/Jennings [facility] Comment on above: Performed By: #### U AR #### [facility] [address] [place] [address] Glucose Ql (U) Negative Normal Negative [facility] Comment on above: Performed By: #### U AR #### [facility] [address] [place] [address] Hemoglobin Ql (U) TRACE Abnormal Negative [facility] Comment on above: Performed By: #### U AR #### [facility] [address] [place] [address] Ketones Ql (U) TRACE Abnormal Negative [facility] Comment on above: Performed By: #### U AR #### [facility] [address] [place] [address] Leukocyte esterase Test strip Ql (U) MODERATE Abnormal Negative [facility] Comment on above: Performed By: #### U AR #### [facility] [address] [place] [address] Nitrite Ql (U) Positive Abnormal Negative [facility] Comment on above: Performed By: #### U AR #### [facility] [address] [place] [address] pH (U) 5.5 [pH] Normal 5.0-9.0 [facility] Comment on above: Performed By: #### U AR #### [facility] [address] [place] [address] Protein Ql (U) TRACE Abnormal Negative [facility] Comment on above: Performed By: #### U AR #### [facility] [address] [place] [address] Specific gravity (U) [Rel density] 1.019 Normal 1.005-1.03 [facility] Comment on above: Performed By: #### U AR #### [facility] [address] [place] [address] Urobilinogen Qn (U) 0.2 {Ann'U}/dL Normal < 2.0 [facility] Comment on above: Performed By: #### U AR #### [facility] [address] [place] [address] Urine Microscopicon 11-23-19 24 Urine Bacteria MANY Abnormal Negative [facility] Comment on above: Performed By: #### U MT #### [facility] [address] [place] [address] Urine Epithelial Cells Auto 3-5 Normal 0-5 [facility] Comment on above: Performed By: #### U MT #### [facility] [address] [place] [address] Urine Hyaline Casts Auto 3-5 Normal 0-5 [facility] Comment on above: Performed By: #### U MT #### [facility] [address] [place] [address] Urine RBC Auto 6-10 Abnormal 0-5 [facility] Comment on above: Performed By: #### U MT #### [facility] [address] [place] [address] Urine WBC Auto >100 Critically high 0-5 [facility] Comment on above: Performed By: #### U MT #### [facility] [address] [place] [address] XR CHEST PORTABLEon 11-23-19 24 XR CHEST [...] Renaldo Smith MD 11/23/23 Final result Normal [facility] CNPN Telephone (AGPSYCWM) -------- EMELY CLEVELAND ([id number]) 1970 F Date Time Provider Department 10/26/23 DANIEL LEON AGPSYCWM During your visit today, we recorded the following information about you: Allergies As of Date: 10/26/2023 Noted Allergy Reaction SEASONAL ALLERGIES 11/05/2012 14 - Other: See Comments Comments: Congestion Date Reviewed: 10/16/2023 Reviewed by: Sonja Padilla, RN - Fully Assessed Reason for Visit: Appointment [186] Cmt: Left voice mail for Medical Assessment at [facility] [place]. cc Prescriptions as of 10/26/2023 - escitalopram [...] (FLONASE) 50 mcg/actuation nasal spray Use 1 Stitzer in each nostril as needed. - SUMATRIPTAN [...] use disorder [F10.90] 10/19/2023 Encounter Status:Closed by EMRIAS MAGANA on 10/26/23 Normal [facility] ETHYL GLUCUR UR CONFon 10-25 ETHYL GLUCUR UR CONF >19642 Normal [facility] Comment on above: Order Comment: Speci men Type: URINE SPECIMENOrdering Facility: [facility] Address: [address] [place] [address] Performed By: #### U EGQNT ####[facility] [id number] [place] [address] ETHYL SULFATE UR CONF 3542 ng/mL Normal [facility] Comment on above: Order Comment: Speci men Type: URINE SPECIMENOrdering Facility: [facility] Address: [address] [place], [place] [id number] Result Comment: INTE RPRETIVE INFORMATION: Ethyl Glucuronide [...] developed and its performance characteristics determined by [facility]. It has not been cleared or approved by the [place] Food and Drug Administration. This test was performed in a CLIA certified laboratory and is intended for clinical purposes. Performed By: [facility] [address] [place] [address] Coding Coordinator: Wellington Gonzales MD, PhD CLIA Number: [id number] Performed By: #### U EGQNT ####[facility] [id number] [place] [address] ETHYL GLUCURONIDE UR SCR 0 10-26-2023 Ethyl glucuronide Screen Ql (U) Sent for confirmation Abnormal Negative [facility] Comment on above: Order Comment: Speci men Type: URINE SPECIMENOrdering Facility: [facility] Address: [address] [place] [address] Result Comment: Scre en cutoff concentration: 500 ng/mL ethyl glucuronide. Immunoassay screen only. Cross reactivity with other substances can occur with immunoassay screening. Detection of any drug(s) in this panel is presumptive only. These tests are for medical purposes only and should not be used for compliance monitoring, legal, or forensic use. This test was developed and its performance characteristics determined by [facility] He[facility] [place] ([facility] It has not been cleared or approved by the FDA. [facility] is regulated under CLIA as qualified to perform high-complexity testing. This test is used for clinical purposes. It should not be regarded as investigational or for research. Performed By: #### U EGLUC ####[facility] LABCLIA [id number] [place] [address] [place] PAIN PANEL, UR QUANTon 10-25 6-Fdarzhqkud-0,5-Dim ethyl-3,3-Diphenylpy rrolidine (EDDP) Confirm (U) [Mass/Vol] <6 Normal <6 [facility] Comment on above: Order Comment: Speci men Type: URINE SPECIMENOrdering Facility: [facility] Address: [address] [place] [address] Result Comment: EDDP is a metabolite of methadone. Performed By: #### L [id number] ####[facility] LABIA [id number] [address] [place] 6-Monoacetylmorphine (6-CIERRA) (U) [Mass/Vol] <5 Normal <5 [facility] Comment on above: Order Comment: Speci men Type: URINE SPECIMENOrdering Facility: [facility] Address: [address] [place] [address] Result Comment: 6-MA M (6-monoacetylmorphine, also known as 6-acetylmorphine) is a unique metabolite of heroin. Presence of 6-CIERRA indicates use of heroin. 6-CIERRA is further metabolized to morphine and absence of 6-CIERRA does not rule out the use of heroin. Performed By: #### L [id number] ####[facility] LABIA [id number] [place] [address] [place] Amphetamine Confirm (U) [Mass/Vol] <5 Normal <5 [facility] Comment on above: Order Comment: Speci men Type: URINE SPECIMENOrdering Facility: [facility] Address: [address] [place] [address] Performed By: #### L [id number] ####[facility] LABCLIA [id number] [place] [address] [place] Benzoylecgonine Confirm (U) [Mass/Vol] <24 Normal <24 [facility] Comment on above: Order Comment: Speci men Type: URINE SPECIMENOrdering Facility: [facility] Address: [address] [place] [address] Result Comment: Abel oylecgonine is a metabolite of cocaine. Performed By: #### L [id number] ####[facility] LABIA [id number] [place] [address] [place] Buprenorphine (U) [Mass/Vol] <20 Normal <20 [facility] Comment on above: Order Comment: Speci men Type: URINE SPECIMENOrdering Facility: [facility] Address: [address] [place] [address] Performed By: #### L [id number] ####[facility] [id number] [place] [address] [place] Cannabinoids Confirm (U) [Mass/Vol] <16 Normal <16 [facility] Comment on above: Order Comment: Speci men Type: URINE SPECIMENOrdering Facility: [facility] Address: [address] [place] [address] Result Comment: Tetr ahydrocannabinol carboxylic acid (THCA) is a metabolite of yhbyh-3-kwlgmutcawowsvwzvjqx which is the main active component of marijuana. Performed By: #### L [id number] ####[facility] [id number] [place] [address] [place] Codeine Confirm (U) [Mass/Vol] <11 Normal <11 [facility] Comment on above: Order Comment: Speci men Type: URINE SPECIMENOrdering Facility: [facility] Address: [address] [place] [address] Performed By: #### L [id number] ####[facility] LABIA [id number] [place] [address] [place] Dihydrocodeine Confirm (U) [Mass/Vol] <5 Normal <5 [facility] Comment on above: Order Comment: Speci men Type: URINE SPECIMENOrdering Facility: [facility] Address: [address] [place] [address] Performed By: #### L [id number] ####[facility] LABIA [id number] [place] [address] [place] fentaNYL Confirm (U) [Mass/Vol] <6 Normal <6 [facility] Comment on above: Order Comment: Speci men Type: URINE SPECIMENOrdering Facility: [facility] Address: [address] [place] [address] Performed By: #### L [id number] ####[facility] [id number] [place] [address] [place] HYDROcodone Confirm (U) [Mass/Vol] <8 Normal <8 [facility] Comment on above: Order Comment: Speci men Type: URINE SPECIMENOrdering Facility: [facility] Address: [address] [place] [address] Result Comment: Hydr ocodone is a metabolite of dihydrocodeine. Performed By: #### L [id number] ####[facility] [id number] [place] [address] [place] HYDROmorphone Confirm (U) [Mass/Vol] <5 Normal <5 [facility] Comment on above: Order Comment: Speci men Type: URINE SPECIMENOrdering Facility: [facility] Address: [address] [place] [address] Result Comment: Hydr omorphone is a metabolite of hydrocodone. Performed By: #### L [id number] ####[facility] LABIA [id number] [place] [address] [place] Methadone Confirm (U) [Mass/Vol] <16 Normal <16 [facility] Comment on above: Order Comment: Speci men Type: URINE SPECIMENOrdering Facility: [facility] Address: [address] [place] [address] Performed By: #### L [id number] ####[facility] LABIA [id number] [place] [address] [place] Methamphetamine Confirm (U) [Mass/Vol] <8 Normal <8 [facility] Comment on above: Order Comment: Speci men Type: URINE SPECIMENOrdering Facility: [facility] Address: [address] [place] [address] Performed By: #### L [id number] ####[facility] LABCLIA [id number] [place] [address] [place] Morphine Confirm (U) [Mass/Vol] <10 Normal <10 [facility] Comment on above: Order Comment: Speci men Type: URINE SPECIMENOrdering Facility: [facility] Address: [address] [place] [address] Result Comment: Morp azalia is a metabolite of codeine and heroin. Performed By: #### L [id number] ####[facility] LABCLIA [id number] [address] [place] Norbuprenorphine (U) [Mass/Vol] <20 Normal <20 [facility] Comment on above: Order Comment: Speci men Type: URINE SPECIMENOrdering Facility: [facility] Address: [address] [place] [address] Result Comment: Norb uprenorphine is the primary active metabolite of buprenorphine. Performed By: #### L [id number] ####[facility] LABIA [id number] [place] [address] [place] Norfentanyl Confirm (U) [Mass/Vol] <6 Normal <6 [facility] Comment on above: Order Comment: Speci men Type: URINE SPECIMENOrdering Facility: [facility] Address: [address] [place] [address] Result Comment: Norf entanyl is a metabolite of fentanyl. Performed By: #### L [id number] ####[facility] LABCLIA [id number] [place] [address] [place] Nortramadol (U) [Mass/Vol] <20 Normal <20 [facility] Comment on above: Order Comment: Speci men Type: URINE SPECIMENOrdering Facility: [facility] Address: [address] [place] [address] Result Comment: Desm ethyltramadol is a metabolite of tramadol. Performed By: #### L [id number] ####[facility] LABIA [id number] [place] [address] [place] NOTE,UR PAIN BERNAL Normal [facility] Comment on above: Order Comment: Speci men Type: URINE SPECIMENOrdering Facility: [facility] Address: [address] [place] [address] Result Comment: This test is for medical use only. This test was developed and its performance characteristics determined by [facility] [place] ([facility] It has not been cleared or approved by the FDA. [facility] is regulated under CLIA as qualified to perform high-complexity testing. This test is used for clinical purposes. It should not be regarded as investigational or for research. Performed By: #### L [id number] ####[facility] LABIA [id number] [place] [address] [place] oxyCODONE Confirm (U) [Mass/Vol] <10 Normal <10 [facility] Comment on above: Order Comment: Speci men Type: URINE SPECIMENOrdering Facility: [facility] Address: [address] [place] [address] Performed By: #### L [id number] ####[facility] LABIA [id number] [place] [address] [place] oxyMORphone Confirm (U) [Mass/Vol] <5 Normal <5 [facility] Comment on above: Order Comment: Speci men Type: URINE SPECIMENOrdering Facility: [facility] Address: [address] [place] [address] Result Comment: Oxym orphone is a metabolite of oxycodone. Performed By: #### L [id number] ####[facility] LABIA [id number] [place] [address] [place] traMADol Confirm (U) [Mass/Vol] <25 Normal <25 [facility] Comment on above: Order Comment: Speci men Type: URINE SPECIMENOrdering Facility: [facility] Address: [address] [place] [address] Performed By: #### L [id number] ####[facility] LABCLIA [id number] [place] [address] [place] SPECIMEN VALIDITY, URINEon 0 10-26-2023 CHROMATE,URINE <10 Normal <50 [facility] Comment on above: Order Comment: Speci men Type: URINE SPECIMENOrdering Facility: [facility] Address: [address] [place] [address] Performed By: #### L [id number] ####[facility] LABCLIA [id number] [place] [address] [place] CREATININE,URINE 227.8 mg/dL Normal 20.0-300.0 [facility] Comment on above: Order Comment: Speci men Type: URINE SPECIMENOrdering Facility: [facility] Address: [address] [place] [address] Performed By: #### L [id number] ####[facility] LABCLIA [id number] [place] [address] [place] NITRITES,URINE 77 mg/L Normal <500 [facility] Comment on above: Order Comment: Speci men Type: URINE SPECIMENOrdering Facility: [facility] Address: [address] [place] [address] Performed By: #### L [id number] ####[facility] LABCLIA [id number] [place] [address] [place] OXIDANTS,URINE <38 Normal <200 [facility] Comment on above: Order Comment: Speci men Type: URINE SPECIMENOrdering Facility: [facility] Address: [address] [place] [address] Performed By: #### L [id number] ####[facility] LABCLIA [id number] [place] [address] [place] pH (U) 5.5 [pH] Normal 4.5-8.0 [facility] Comment on above: Order Comment: Speci men Type: URINE SPECIMENOrdering Facility: [facility] Address: [address] [place] [address] Performed By: #### L [id number] ####[facility] LABCLIA [id number] [place] [address] [place] SPEC GRAVITY,UR 1.015 Normal 1.003-1.035 [facility] Comment on above: Order Comment: Speci men Type: URINE SPECIMENOrdering Facility: [facility] Address: [address] [place] [address] Performed By: #### L [id number] ####[facility] LABCLIA [id number] [address] [place] SPECIMEN VALIDITY QUALITY Specimen quality results within acceptable limits Normal [facility] Comment on above: Order Comment: Speci men Type: URINE SPECIMENOrdering Facility: [facility] Address: [address] [place] [address] Performed By: #### L [id number] ####[facility] LABIA [id number] [place] [address] [place] TOXICOLOGY SCREEN, ROUTINE U RINEon 10-26-2023 Amphetamines Confirm (U) [Mass/Vol] Negative Normal Negative [facility] Comment on above: Order Comment: Speci men Type: URINE SPECIMENOrdering Facility: [facility] Address: [address] [place] [address] Result Comment: Cuto ff threshold at 1000 ng/mL. Performed By: #### U TOX2 ####[facility] LABORATORYCLIA [id number] [facility] [place] [address] [place] BARBITURATES, URINE Negative Normal Negative [facility] Comment on above: Order Comment: Speci men Type: URINE SPECIMENOrdering Facility: [facility] Address: [address] [place] [address] Result Comment: Cuto ff threshold at 200 ng/mL. Performed By: #### U TOX2 ####[facility] [id number] [place] [address] [place] BENZODIAZEPINES, UR Positive Abnormal Negative [facility] Comment on above: Order Comment: Speci men Type: URINE SPECIMENOrdering Facility: [facility] Address: [address] [place] [address] Result Comment: Cuto ff threshold at 200 ng/mL. Performed By: #### U TOX2 ####[facility] [id number] [place] [address] [place] Cannabinoids Screen Ql (U) Negative Normal Negative [facility] Comment on above: Order Comment: Speci men Type: URINE SPECIMENOrdering Facility: [facility] Address: [address] [place] [address] Result Comment: Cuto ff threshold at 50 ng/mL. Performed By: #### U TOX2 ####[facility] [id number] [place] [address] [place] Cocaine Ql (U) Negative Normal Negative [facility] Comment on above: Order Comment: Speci men Type: URINE SPECIMENOrdering Facility: [facility] Address: [address] [place] [address] Result Comment: Cuto ff threshold at 300 ng/mL. Performed By: #### U TOX2 ####[facility] LABORATORYIA [id number] [place] [address] [place] Ethanol (U) [Mass/Vol] <11 Normal <11 [facility] Comment on above: Order Comment: Speci men Type: URINE SPECIMENOrdering Facility: [facility] Address: [address] [place] [address] Performed By: #### U TOX2 ####[facility] LABORATORYIA [id number] [place] [id number] [place] Opiates Screen Ql (U) Negative Normal Negative [facility] Comment on above: Order Comment: Speci men Type: URINE SPECIMENOrdering Facility: [facility] Address: [address] [place] [address] Result Comment: Cuto ff threshold at 300 ng/mL. Performed By: #### U TOX2 ####[facility]ORYIA [id number] [address] oxyCODONE cutoff Screen (U) [Mass/Vol] Negative Normal Negative [facility] Comment on above: Order Comment: Speci men Type: URINE SPECIMENOrdering Facility: [facility] Address: [address] [place] [address] Result Comment: Cuto ff threshold at 100 ng/mL. Performed By: #### U TOX2 ####[facility] [id number] [address] Phencyclidine Ql (U) Negative Normal Negative [facility] Comment on above: Order Comment: Speci men Type: URINE SPECIMENOrdering Facility: [facility] Address: [address] [place] [address] Result Comment: Cuto ff threshold at 25 ng/mL. Performed By: #### U TOX2 ####[facility] [id number] [address] OF [facility] CASE MANAGEMon 10-20-2023 CASE MANAGEM HNO ID: [id number] Author: JANEY ALBRECHT LISW Service: ? Author Type: Collector [employer] Internal [employer] Type: Care Mgt Progress Note Filed: 10/20/2023 [...] Communication: Handoff to: Primary Care Physician;Other Caregiver;Specialty Oil Treater Specialty Oil Treater Name/Phone: Bin Fuentes MD Neurology [phone] Primary Care Physician Name/Phone: Jhoan Roberto MD PCP - General Internal Medicine [phone] Other Caregiver Name/Phone: Zakia Perez MD Cardiology [phone] Additional Information: Patient is medically clear for discharge. Patient has an appointment for an assessment on 10/23/2023 for IOP. Patient reports she will get walker once discharged through [facility]/self pay. Patient reports her son in law will transport home. Patient has no other identified CM or D/C needs. Discharge Information Row Name Admission (Current) from 10/15/[address] Behavioral Health Follow-Up Appointment Specialty Behavioral Health Provider Name [facility] Address Virtual Appointment Date 10/23/23 Appointment Time 8:30 am Additional Instructions Virtaul appointment in AM SIGNATURE: JADA Tomas PATIENT NAME: Emely Cleveland DATE: October 20, 2023 TIME: 2:11 PM CONTACT #: [phone] [facility] CASE MANAGEM HNO ID: [id number] Author: JANEY ALBRECHT LISW Service: ? Author Type: Collector [employer] Internal Revenue Type: Care Mgt Progress Note Filed: 10/20/2023 [...] 20, 2023 TIME: 11:39 AM PAGER/CONTACT #: [phone] [facility] CBC panel Auto (Bld)on 10-19 Erythrocyte distribution width (RBC) [Ratio] 14.1 % Normal 11.5-15.0 [facility] Comment on above: Order Comment: Speci men Type: BLOOD SPECIMENOrdering Facility: [facility] Address: [address] [place] [address] Performed By: #### 5 8410-2 ####[facility] [id number] [address] [place], [place] [id number] [place] Hematocrit (Bld) [Volume fraction] 29.6 % Low 36.0-46.0 [facility] Comment on above: Order Comment: Speci men Type: BLOOD SPECIMENOrdering Facility: [facility] Address: [address] [place] [address] Performed By: #### 5 8410-2 ####[facility] [id number] [address] [place] [address] [place] Hemoglobin (Bld) [Mass/Vol] 9.6 g/dL Low 11.5-15.5 [facility] Comment on above: Order Comment: Speci men Type: BLOOD SPECIMENOrdering Facility: [facility] Address: [address] [place] [address] Performed By: #### 5 8410-2 ####[facility]ORY[facility] [id number] [place] [address] [place] MCH (RBC) [Entitic mass] 33.1 pg Normal 26.0-34.0 [facility] Comment on above: Order Comment: Speci men Type: BLOOD SPECIMENOrdering Facility: [facility] Address: [address] [place] [address] Performed By: #### 5 8410-2 ####[facility]ORY[facility] [id number] [place] [id number] [place] MCHC (RBC) [Mass/Vol] 32.4 g/dL Normal 30.5-36.0 [facility] Comment on above: Order Comment: Speci men Type: BLOOD SPECIMENOrdering Facility: [facility] Address: [address] [place] [address] Performed By: #### 5 8410-2 ####[facility]ORY[facility] [id number] [place] [address] [place] MCV (RBC) [Entitic vol] 102.1 fL High 80.0-100.0 [facility] Comment on above: Order Comment: Speci men Type: BLOOD SPECIMENOrdering Facility: [facility] Address: [address] [place] [address] Performed By: #### 5 8410-2 ####[facility]ORY[facility] [id number] [address] [place], [place] [address] [place] Nucleated RBC (Bld) [#/Vol] 10*3/uL Normal <0.01 [facility] Comment on above: Order Comment: Speci men Type: BLOOD SPECIMENOrdering Facility: [facility] Address: [address] [place] [address] Performed By: #### 5 8410-2 ####[facility]ORY[facility] [id number] [place] [address] [place] Platelet mean volume (Bld) [Entitic vol] 9.6 fL Normal 9.0-12.7 [facility] Comment on above: Order Comment: Speci men Type: BLOOD SPECIMENOrdering Facility: [facility] Address: [address] [place] [address] Performed By: #### 5 8410-2 ####[facility]ORYCLIA [id number] [place] [address] [place] Platelets (Bld) [#/Vol] 96 10*3/uL Low 150-400 [facility] Comment on above: Order Comment: Speci men Type: BLOOD SPECIMENOrdering Facility: [facility] Address: [address] [place] [address] Performed By: #### 5 8410-2 ####CHRISTIANITY LABORATORYCLIA [id number] [address] [place] [address] [place] RBC (Bld) [#/Vol] 2.90 10*6/uL Low 3.90-5.20 [facility] Comment on above: Order Comment: Speci men Type: BLOOD SPECIMENOrdering Facility: [facility] Address: [address] [place] [address] Performed By: #### 5 8410-2 ####CHRISTIANITY LABORATORYCLIA [id number] [place] [id number] [place] WBC (Bld) [#/Vol] 4.57 10*3/uL Normal 3.70-11.00 [facility] Comment on above: Order Comment: Speci men Type: BLOOD SPECIMENOrdering Facility: [facility] Address: [facility] [place] [address] Performed By: #### 5 8410-2 ####CHRISTIANITY LABORATORYCLIA [id number] [place] [id number] [facility] CNDSon 10-20-2023 CNDS HNO ID: [id number] Author: TOD WONG MD Service: Hospital Medicine [...] Doctor: Tod Wong MD Primary Care Provider: Jhoan Roberto MD My Medical Team Members: Treatment Team: Attending Provider: Tdo Wong MD Consulting: Zakia Perez MD Consulting: Bin Fuentes MD MY CONDITION AT DISCHARGE: Stable REASON I WAS IN THE HOSPITAL: Syncope AND Alcohol withdrawal SUMMARY OF WHAT HAPPENED WHILE I WAS IN THE HOSPITAL: Emely Cleveland is a 53 year old female with past medical history of HTN, HLD, GERD, EtOH abuse, KENDALL on CPAP, MALENA, MDD whom presented to [facility] for evaluation of syncope and detox. Transferred to [facility] for hospitalization, admitted to medical floor for optimization. Behavioral Health consulted, withdrawal managed with Librium Taper and CIWA protocol. Recommend to increase Lexapro to 20mg and continue Acamprosate upon discharge. Neurology AND Cardiology consulted for syncopal episode. Carotid US with less than 30% bilateral blockage. EEG obtained, no acute seizure activity. Medically cleared to discharge to home. Tentatively has [facility] IOP assessment on 10/23/2023. OTHER PROBLEMS/DIAGNOSIS: Principal [...] Issues: NEW BASELINE FOR PATIENT: SPECIALIST FOLLOW-UP: [facility] IOP Assessment on 10/23/2023 [place] MEDICATION CHANGES: Lexapro increased to 20mg daily. Begin Campral 999mg twice daily. LABS AND PROCEDURES PENDING AT DISCHARGE: No pending results. FOLLOW-UP APPOINTMENTS ALREADY SCHEDULED WITH A [facility] PROVIDER: Future Appointments Date Time Provider Department Center 10/23/2023 8:30 AM Negar Michelle LISW [facility] None Discharge Information Row Name Admission (Current) from 10/15/2023 in [facility] 4D Behavioral Health Follow-Up Appointment Specialty Behavioral Health Provider Name [facility] IOP Address Virtual Appointment Date 10/23/23 [...] Your Medications These medications were sent to [facility] (more content not included)... Normal [facility] Comprehensive metabolic 2000 panelon 10-20-2023 Albumin [Mass/Vol] 3.3 g/dL Low 3.9-4.9 [facility] Comment on above: Order Comment: Ruth caldera Type: BLOOD SPECIMENOrdering Facility: [facility] Address: [address] [place] [address] Performed By: #### 2 4323-8, ####CHRISTIANITY LABORATORYCLIA [id number] [place] [address] [place] ALP [Catalytic activity/Vol] 45 U/L Normal 34-123 [facility] Comment on above: Order Comment: Ruth caldera Type: BLOOD SPECIMENOrdering Facility: [facility] Address: [address] [place] [address] Performed By: #### 2 4323-8, ####CHRISTIANITY LABORATORYCLIA [id number] [place] [id number] [place] ALT [Catalytic activity/Vol] 143 U/L High 7-38 [facility] Comment on above: Order Comment: Ruth caldera Type: BLOOD SPECIMENOrdering Facility: [facility] Address: [address] [place] [address] Performed By: #### 2 4323-8, ####CHRISTIANITY LABORATORYCLIA [id number] [address] [place], [place] [address] [place] Anion gap [Moles/Vol] 12 mmol/L Normal 8-15 [facility] Comment on above: Order Comment: Speci men Type: BLOOD SPECIMENOrdering Facility: [facility] Address: [address] [place] [address] Performed By: #### 2 4323-8, ####CHRISTIANITY LABORATORYCLIA [id number] [address] [place], [place] [address] [place] AST [Catalytic activity/Vol] 233 U/L High 13-35 [facility] Comment on above: Order Comment: Speci men Type: BLOOD SPECIMENOrdering Facility: [facility] Address: [address] [place] [address] Performed By: #### 2 4323-8, ####CHRISTIANITY LABORATORYCLIA [id number] [address] [place] [address] [place] Bilirubin [Mass/Vol] 0.6 mg/dL Normal 0.2-1.3 [facility] Comment on above: Order Comment: Speci men Type: BLOOD SPECIMENOrdering Facility: [facility] Address: [address] [place] [address] Performed By: #### 2 4323-8, ####CHRISTIANITY LABORATORYCLIA [id number] [place] [address] [place] Calcium [Mass/Vol] 8.5 mg/dL Normal 8.5-10.2 [facility] Comment on above: Order Comment: Speci men Type: BLOOD SPECIMENOrdering Facility: [facility] Address: [address] [place] [address] Performed By: #### 2 4323-8, ####CHRISTIANITY LABORATORYCLIA [id number] [place] [address] [place] Chloride [Moles/Vol] 103 mmol/L Normal 98-107 [facility] Comment on above: Order Comment: Speci men Type: BLOOD SPECIMENOrdering Facility: [facility] Address: [address] [place] [address] Performed By: #### 2 4323-8, ####CHRISTIANITY LABORATORYCLIA [id number] [place] [address] [place] CO2 [Moles/Vol] 22 mmol/L Normal 22-30 [facility] Comment on above: Order Comment: Speci men Type: BLOOD SPECIMENOrdering Facility: [facility] Address: [address] [place] [address] Performed By: #### 2 4323-8, ####CHRISTIANITY LABORATORYCLIA [id number] [place] [id number] [place] Creatinine [Mass/Vol] 0.59 mg/dL Normal 0.58-0.96 [facility] Comment on above: Order Comment: Speci men Type: BLOOD SPECIMENOrdering Facility: [facility] Address: [address] [place] [address] Performed By: #### 2 4323-8, ####CHRISTIANITY LABORATORYCLIA [id number] [place] [address] [place] Creatinine and Glomerular filtration rate.predicted panel (S/P/Bld) 108 mL/min/1.73m??? Normal >=60 [facility] Comment on above: Order Comment: Speci men Type: BLOOD SPECIMENOrdering Facility: [facility] Address: [address] [place] [address] Result Comment: Luisa mated Glomerular Filtration Rate [...] actual GFR. Performed By: #### 2 4323-8, 21913-4 ####CHRISTIANITY LABORATORYCLIA [id number] [place] [id number] [place] Glucose [Mass/Vol] 90 mg/dL Normal 74-99 [facility] Comment on above: Order Comment: Speci men Type: BLOOD SPECIMENOrdering Facility: [facility] Address: [address] [place], [place] [address] Result Comment: The [place] Diabetes Association (ADA) provides guidance for cutoff [...] Standards of Medical Care in Diabetes 2016, [place] [employer]. Diabetes Care. 2016.39(Suppl 1). Performed By: #### 2 4323-8, ####CHRISTIANITY LABORATORYCLIA [id number] [place] [id number] [place] Potassium [Moles/Vol] 4.0 mmol/L Normal 3.7-5.1 [facility] Comment on above: Order Comment: Ruth caldera Type: BLOOD SPECIMENOrdering Facility: [facility] Address: [address] [place] [address] Performed By: #### 2 4323-8, ####CHRISTIANITY LABORATORYCLIA [id number] [place] [id number] [place] Protein [Mass/Vol] 5.5 g/dL Low 6.3-8.0 [facility] Comment on above: Order Comment: Joyi men Type: BLOOD SPECIMENOrdering Facility: [facility] Address: [address] [place], [place] [address] Performed By: #### 2 4323-8, ####CHRISTIANITY LABORATORYCLIA [id number] [place] [id number] [place] Sodium [Moles/Vol] 137 mmol/L Normal 136-144 [facility] Comment on above: Order Comment: Speci men Type: BLOOD SPECIMENOrdering Facility: [facility] Address: [address] [place], [place] [address] Performed By: #### 2 4323-8, 63885-2 ####CHRISTIANITY LABORATORYCLIA [id number] [place] [id number] [place] Urea nitrogen [Mass/Vol] 9 mg/dL Normal 7-21 [facility] Comment on above: Order Comment: Speci men Type: BLOOD SPECIMENOrdering Facility: [facility] Address: [address] [place] [address] Performed By: #### 2 4323-8, ####CHRISTIANITY LABORATORYCLIA [id number] [place] [id number] [place] Magnesium SerPl-mCncon 10-19 Magnesium [Mass/Vol] 1.6 mg/dL Low 1.7-2.3 [facility] Comment on above: Order Comment: Speci men Type: BLOOD SPECIMENOrdering Facility: [facility] Address: [address] [place] [address] Performed By: #### 2 4323-8, ####CHRISTIANITY LABORATORYCLIA [id number] [place] [id number] [place] ALLIED HEALTHon 10-19-2023 ALLIED HEALTH HNO ID: [id number] Author: HIRAL DE LEON RT(Sumit) Service: Radiology [...] PATIENT PRESENTS WITH AN IMPLANTABLE OR ATTACHED JAVA DEVELOPER ARCHITECT: No RADIOLOGY DEPARTMENT: Ultrasound PERIPHERAL IV DATA: Not applicable SIGNED BY: Hiral De Leon RT(R) RDMS RVT October 19, 2023 2:40 PM [facility] CASE MANAGEMon 10-19-2023 CASE MANAGEM HNO ID: [id number] Author: JANEY ALBRECHT LISW Service: ? Author Type: Collector [employer] Type: Care Mgt Progress Note Filed: 10/19/2023 14:35 Note Text: CARE MANAGEMENT PROGRESS NOTE SERVICE DATE: 10/19/2023 SERVICE TIME: 2:33 PM LOS: 4 days CM met patient at bedside to discuss D/C planning. Patient reports she is going to get FMLA papers faxed for hospital to complete. She reports she is okay with virtual IOP through [facility]. October 23, 2023 at 8:30 am patient will have a virtual assessment. Patient prefers 6pm-9pm virtual IOP. CM will remain available. SIGNATURE: JADA Tomas PATIENT NAME: Emely Cleveland DATE: October 19, 2023 TIME: 2:33 PM PAGER/CONTACT #: [phone] Normal [facility] CBC panel Auto (Bld)on 10-18 Erythrocyte distribution width (RBC) [Ratio] 13.9 % Normal 11.5-15.0 [facility] Comment on above: Order Comment: Ruth caldera Type: BLOOD SPECIMENOrdering Facility: [facility] Address: [address] [place] [address] Performed By: #### 5 8410-2 ####CHRISTIANITY LABORATORYCLIA [id number] [place] [id number] [place] Hematocrit (Bld) [Volume fraction] 32.4 % Low 36.0-46.0 [facility] Comment on above: Order Comment: Ruth caldera Type: BLOOD SPECIMENOrdering Facility: [facility] Address: [address] [place] [address] Performed By: #### 5 8410-2 ####CHRISTIANITY LABORATORYCLIA [id number] [place] [address] [place] Hemoglobin (Bld) [Mass/Vol] 10.5 g/dL Low 11.5-15.5 [facility] Comment on above: Order Comment: Speci men Type: BLOOD SPECIMENOrdering Facility: [facility] Address: [facility] [place] [address] Performed By: #### 5 8410-2 ####CHRISTIANITY LABORATORYCLIA [id number] [address] [place] [address] [place] MCH (RBC) [Entitic mass] 33.3 pg Normal 26.0-34.0 [facility] Comment on above: Order Comment: Speci men Type: BLOOD SPECIMENOrdering Facility: [facility] Address: [address] [place] [address] Performed By: #### 5 8410-2 ####CHRISTIANITY LABORATORYCLIA [id number] [place] [address] [place] MCHC (RBC) [Mass/Vol] 32.4 g/dL Normal 30.5-36.0 [facility] Comment on above: Order Comment: Speci men Type: BLOOD SPECIMENOrdering Facility: [facility] Address: [address] [place] [address] Performed By: #### 5 8410-2 ####CHRISTIANITY LABORATORYCLIA [id number] [place] [address] [place] MCV (RBC) [Entitic vol] 102.9 fL High 80.0-100.0 [facility] Comment on above: Order Comment: Speci men Type: BLOOD SPECIMENOrdering Facility: [facility] Address: [address] [place] [address] Performed By: #### 5 8410-2 ####CHRISTIANITY LABORATORYCLIA [id number] [address] [place] Nucleated RBC (Bld) [#/Vol] 10*3/uL Normal <0.01 [facility] Comment on above: Order Comment: Speci men Type: BLOOD SPECIMENOrdering Facility: [facility] Address: [address] [place] [address] Performed By: #### 5 8410-2 ####CHRISTIANITY LABORATORYCLIA [id number] [address] [place] Platelet mean volume (Bld) [Entitic vol] 9.6 fL Normal 9.0-12.7 [facility] Comment on above: Order Comment: Speci men Type: BLOOD SPECIMENOrdering Facility: [facility] Address: [address] [place] [address] Performed By: #### 5 8410-2 ####CHRISTIANITY LABORATORYCLIA [id number] [address] [place] Platelets (Bld) [#/Vol] 84 10*3/uL Low 150-400 [facility] Comment on above: Order Comment: Speci men Type: BLOOD SPECIMENOrdering Facility: [facility] Address: [address] [place] [address] Result Comment: No c lot detected. Performed By: #### 5 8410-2 ####CHRISTIANITY LABORATORYCLIA [id number] [address] [place] RBC (Bld) [#/Vol] 3.15 10*6/uL Low 3.90-5.20 [facility] Comment on above: Order Comment: Speci men Type: BLOOD SPECIMENOrdering Facility: [facility] Address: [address] [place] [address] Performed By: #### 5 8410-2 ####CHRISTIANITY LABORATORYCLIA [id number] [place] [address] [place] WBC (Bld) [#/Vol] 4.24 10*3/uL Normal 3.70-11.00 [facility] Comment on above: Order Comment: Speci men Type: BLOOD SPECIMENOrdering Facility: [facility] Address: [address] [place] [address] Performed By: #### 5 8410-2 ####CHRISTIANITY LABORATORYCLIA [id number] [place] [id number] [facility] CONSULT PROGon 10-19-2023 CONSULT PROG HNO ID: [id number] Author: DELGADILLO, OLIVIA, LABORER.CATARACT LENS GENERATOR Service: Psychiatry Author Type: Nurse Practitioner Type: Consult Progress Note Filed: 10/19/2023 15:38 Note Text: CL FOLLOW UP - PSYCHIATRY CONSULTATION PROGRESS NOTE SERVICE DATE: October 19, 2023 SERVICE TIME: 2:43 PM Visit Type: In person PRESENT HISTORY: Pt seen in room with MS Bill and TRACK COACH Renetta. Pt reports she is doing all right. Denies withdrawal sxs currently. She appears to be in no discomfort. Reports no ETOH use since 10/14. Feels detox is complete at this time. Has never withdrawn before No hx of seizures or DT's Follow up: [facility] IOP assessment on Thursday. She intends to [...] 875 mg ORAL BID Branden De [place] APRN.CATARACT LENS GENERATOR 875 mg at 10/19/23 0852 amLODIPine 5 mg tab(s) (NORVASC) 5 mg ORAL DAILY Rony Suarez APRN.CATARACT LENS GENERATOR 5 mg at 10/19/23 0853 escitalopram oxalate 20 mg tab(s) (LEXAPRO) 20 mg ORAL DAILY Stephanie Mejía APRN.CATARACT LENS GENERATOR 20 mg at 10/19/[address] 999 mg tab(s) (CAMPRAL) 999 mg ORAL BID Stephanie Mejía APRN.CATARACT LENS GENERATOR 999 mg at 10/19/23 0852 chlordiazePOXIDE 5 mg cap(s) (LIBRIUM) 5 mg ORAL QID Stephanie Mejía APRN.CATARACT LENS GENERATOR 5 mg at 10/19/23 0853 LORazepam 1 mg tab(s) (ATIVAN) 1 mg ORAL q 2 H PRN Stephanie Mejía APRN.CATARACT LENS GENERATOR 1 mg at 10/16/232024 Or LORazepam 2 mg (ATIVAN) 2 mg ORAL q 2 H PRN Stephanie Mejía APRN.CNP Or LORazepam 2 mg (ATIVAN) 2 mg ORAL q 1 H PRN Stephanie Mejía APRN.CATARACT LENS GENERATOR thiamine 100 mg tab(s) (VITAMIN B1) 100 mg ORAL/FEEDING TUBE TID Stephanie Mejía APRN.CATARACT LENS GENERATOR 100 mg at 10/19/23 0853 traZODone 50 mg tab(s) (DESYREL) 50 mg ORAL AT BEDTIME PRN Irene Glez APRN.CNP hydrOXYzine HCl 25 mg tab(s) (ATARAX) 25 mg ORAL QID PRN Irene Glez APRN.CATARACT LENS GENERATOR 25 mg at 10/17/23 1029 NaCl 0.9% iv flush bag 20 mL INTRAVENOUS PRN Irene Glez APRN.CATARACT LENS GENERATOR NaCl 0.9% iv infusion 75 mL/hr INTRAVENOUS CONTINUOUS Irene Glez APRN.CATARACT LENS GENERATOR 75 mL/hr at 10/17/23 1252 75 mL/hr at 10/17/23 1252 ondansetron 4 mg tab(s) (ZOFRAN) 4 mg ORAL q 6 H PRN Irene Glez APRN.CNP Or ondansetron (PF) 4 mg injection (ZOFRAN) 4 mg INTRAVENOUS q 6 H PRN Irene Glez APRN.CATARACT LENS GENERATOR 4 mg at 10/15/23 2255 aluminum-magnesium hydroxide-simethicone 200-200-20 mg/5 mL 30 mL 30 mL ORAL DAILY PRN Irene Glez APRN.CNP ibuprofen 400 mg tab(s) (MOTRIN) 400 mg ORAL q 6 H PRN Irene Glez APRN.CATARACT LENS GENERATOR 400 mg at 10/19/23 0853 sodium chloride 0.9 % (flush) 2-10 mL (BD POSIFLUSH) 2-10 mL INTRAVENOUS DIRECTED PRN Irene Glez APRN.CNP And perflutren lipid microspheres 1.1 mg/mL 1.3 mL injection (DEFINITY) 1.3 mL INTRAVENOUS DIRECTED PRN Irene Glez APRN.CNP pantoprazole DR 40 mg tab(s) (PROTONIX) 40 mg ORAL DAILY (6 AM) Irene Glez APRN.CATARACT LENS GENERATOR 40 mg at 10/19/23 0558 tiZANidine 4 [...] 139 10/19/2023 (more content not included)... Normal [facility] Comprehensive metabolic 2000 panelon 10-19-2023 Albumin [Mass/Vol] 3.5 g/dL Low 3.9-4.9 [facility] Comment on above: Order Comment: Speci men Type: BLOOD SPECIMENOrdering Facility: [facility] Address: [address] [place] [address] Performed By: #### 2 4323-8, 59399-4 ####CHRISTIANITY LABORATORYCLIA [id number] [place] [address] [place] ALP [Catalytic activity/Vol] 44 U/L Normal 34-123 [facility] Comment on above: Order Comment: Speci men Type: BLOOD SPECIMENOrdering Facility: [facility] Address: [address] [place] [address] Performed By: #### 2 4323-8, 83059-2 ####CHRISTIANITY LABORATORYCLIA [id number] [place] [id number] [place] ALT [Catalytic activity/Vol] 112 U/L High 7-38 [facility] Comment on above: Order Comment: Speci men Type: BLOOD SPECIMENOrdering Facility: [facility] Address: [address] [facility] [place] [id number] Performed By: #### 2 4323-8, ####CHRISTIANITY LABORATORYCLIA [id number] [address] [place], [place] [address] [place] Anion gap [Moles/Vol] 11 mmol/L Normal 8-15 [facility] Comment on above: Order Comment: Speci men Type: BLOOD SPECIMENOrdering Facility: [facility] Address: [address] [place] [address] Performed By: #### 2 4323-8, ####CHRISTIANITY LABORATORYCLIA [id number] [address] [place], [place] [address] [place] AST [Catalytic activity/Vol] 193 U/L High 13-35 [facility] Comment on above: Order Comment: Speci men Type: BLOOD SPECIMENOrdering Facility: [facility] Address: [address] [place] [address] Performed By: #### 2 4323-8, ####CHRISTIANITY LABORATORYCLIA [id number] [address] [place], [place] [address] [place] Bilirubin [Mass/Vol] 0.7 mg/dL Normal 0.2-1.3 [facility] Comment on above: Order Comment: Speci men Type: BLOOD SPECIMENOrdering Facility: [facility] Address: [address] [place] [address] Performed By: #### 2 4323-8, ####CHRISTIANITY LABORATORYCLIA [id number] [place] [id number] [place] Calcium [Mass/Vol] 9.3 mg/dL Normal 8.5-10.2 [facility] Comment on above: Order Comment: Speci men Type: BLOOD SPECIMENOrdering Facility: [facility] Address: [address] [place] [address] Performed By: #### 2 4323-8, 88059-2 ####CHRISTIANITY LABORATORYCLIA [id number] [address] [address] [place] Chloride [Moles/Vol] 105 mmol/L Normal 98-107 [facility] Comment on above: Order Comment: Speci men Type: BLOOD SPECIMENOrdering Facility: [facility] Address: [address] [place] [address] Performed By: #### 2 4323-8, ####CHRISTIANITY LABORATORYCLIA [id number] [place] [id number] [place] CO2 [Moles/Vol] 23 mmol/L Normal 22-30 [facility] Comment on above: Order Comment: Speci men Type: BLOOD SPECIMENOrdering Facility: [facility] Address: [address] [place] [address] Performed By: #### 2 4323-8, ####CHRISTIANITY LABORATORYCLIA [id number] [address] [place] Creatinine [Mass/Vol] 0.58 mg/dL Normal 0.58-0.96 [facility] Comment on above: Order Comment: Speci men Type: BLOOD SPECIMENOrdering Facility: [facility] Address: [address] [place] [address] Performed By: #### 2 4323-8, ####CHRISTIANITY LABORATORYCLIA [id number] [address] Creatinine and Glomerular filtration rate.predicted panel (S/P/Bld) 108 mL/min/1.73m??? Normal >=60 [facility] Comment on above: Order Comment: Speci men Type: BLOOD SPECIMENOrdering Facility: [facility] Address: [address] [place] [address] Result Comment: Luisa mated Glomerular Filtration Rate [...] actual GFR. Performed By: #### 2 4323-8, ####CHRISTIANITY LABORATORYCLIA [id number] [place] [id number] [place] Glucose [Mass/Vol] 107 mg/dL High 74-99 [facility] Comment on above: Order Comment: Speci men Type: BLOOD SPECIMENOrdering Facility: [facility] Address: [address] [place] [address] Result Comment: The [place] Diabetes Association (ADA) provides guidance for cutoff [...] Standards of Medical Care in Diabetes 2016, [place] [employer]. Diabetes Care. 2016.39(Suppl 1). Performed By: #### 2 4323-8, ####CHRISTIANITY LABORATORYCLIA [id number] [place] [id number] [place] Potassium [Moles/Vol] 4.3 mmol/L Normal 3.7-5.1 [facility] Comment on above: Order Comment: Speci men Type: BLOOD SPECIMENOrdering Facility: [facility] Address: [address] [place] [address] Performed By: #### 2 4323-8, ####CHRISTIANITY LABORATORYCLIA [id number] [place] [id number] [place] Protein [Mass/Vol] 5.9 g/dL Low 6.3-8.0 [facility] Comment on above: Order Comment: Speci men Type: BLOOD SPECIMENOrdering Facility: [facility] Address: [address] [place] [address] Performed By: #### 2 4323-8, ####CHRISTIANITY LABORATORYCLIA [id number] [place] [address] [place] Sodium [Moles/Vol] 139 mmol/L Normal 136-144 [facility] Comment on above: Order Comment: Speci men Type: BLOOD SPECIMENOrdering Facility: [facility] Address: [facility] [place] [address] Performed By: #### 2 4323-8, 08283-6 ####CHRISTIANITY LABORATORYCLIA [id number] [place] [id number] [place] Urea nitrogen [Mass/Vol] 6 mg/dL Low 7-21 [facility] Comment on above: Order Comment: Speci men Type: BLOOD SPECIMENOrdering Facility: [facility] Address: [address] [place] [address] Performed By: #### 2 4323-8, 65021-9 ####CHRISTIANITY LABORATORYCLIA [id number] [place] [id number] [place] Magnesium SerPl-mCncon 10-18 Magnesium [Mass/Vol] 1.5 mg/dL Low 1.7-2.3 [facility] Comment on above: Order Comment: Speci men Type: BLOOD SPECIMENOrdering Facility: [facility] [facility] Address: [address] [place] [address] Performed By: #### 2 4323-8, 58600-0 ####[facility] LABORATORYCLIA [id number] [place] [id number] [place] US CAROTID BILon 10-19-2023 US CAROTID DAREK * * *Final Report* * * DATE OF EXAM: Oct 19 2023 2:39PM [facility] [address] [facility] CAROTID DAREK / PROCEDURE REASON: Other * [...] left internal carotid artery by NASCET criteria. Information Security Architect: PSCB Transcribe Date/Time: Oct 19 2023 3:50P Dictated by : LESLIE KAISER MD This examination was interpreted and the report reviewed and electronically signed by: LESLIE KAISER MD on Oct 19 2023 3:56PM EST [id number] [facility] Bacteria Wnd Culton 10-18-19 24 Bacteria [...] <=4 , Intermediate >4 , Resistant >8 [facility] Comment on above: Performed By: #### 6 462-6 ####[facility] LABCLIA [id number] [address] CASE MANAGEMon 10-18-2023 CASE MANAGEM HNO ID: [id number] Author: BRANDY SHARMA RN Service: ? Author [...] not have a seat. Request sent to [place]. Pt. is aware that if approved by insurance, [place] will inform us what Drug [facility] will have the walker. Per behavioral medicine note, pt. interested in IOP. Pt. states yes or something like that. Pt. provided with [facility] for [facility]. Informed her if she is in agreement, CM can make an appointment prior to discharge. SIGNATURE: Brandy Sharma RN PATIENT NAME: Emely Cleveland DATE: October 18, 2023 TIME: 11:42 AM PAGER/CONTACT #: Brandy Sharma RN [phone] [facility] CBC panel Auto (Bld)on 10-17 Erythrocyte distribution width (RBC) [Ratio] 13.5 % Normal 11.5-15.0 [facility] Comment on above: Order Comment: Speci men Type: BLOOD SPECIMENOrdering Facility: [facility] Address: [address] [place] [address] Performed By: #### 5 8410-2 ####[facility] LABORATORYCLIA [id number] [address] [place], [place] [id number] [place] Hematocrit (Bld) [Volume fraction] 31.7 % Low 36.0-46.0 [facility] Comment on above: Order Comment: Speci men Type: BLOOD SPECIMENOrdering Facility: [facility] Address: [address] [place] [address] Performed By: #### 5 8410-2 ####[facility] LABORATORYCLIA [id number] [address] [place] Hemoglobin (Bld) [Mass/Vol] 10.5 g/dL Low 11.5-15.5 [facility] Comment on above: Order Comment: Speci men Type: BLOOD SPECIMENOrdering Facility: [facility] Address: [address] [place] [address] Performed By: #### 5 8410-2 ####[facility] LABORATORYCLIA [id number] [place] [address] [place] MCH (RBC) [Entitic mass] 33.4 pg Normal 26.0-34.0 [facility] Comment on above: Order Comment: Speci men Type: BLOOD SPECIMENOrdering Facility: [facility] Address: [address] [place] [address] Performed By: #### 5 8410-2 ####[facility] LABORATORYCLIA [id number] [place] [id number] [place] MCHC (RBC) [Mass/Vol] 33.1 g/dL Normal 30.5-36.0 [facility] Comment on above: Order Comment: Speci men Type: BLOOD SPECIMENOrdering Facility: [facility] Address: [address] [place] [address] Performed By: #### 5 8410-2 ####[facility] LABORATORYCLIA [id number] [address] [place], [place] [address] [place] MCV (RBC) [Entitic vol] 101.0 fL High 80.0-100.0 [facility] Comment on above: Order Comment: Speci men Type: BLOOD SPECIMENOrdering Facility: [facility] Address: [address] [place] [address] Performed By: #### 5 8410-2 ####[facility] LABORATORYCLIA [id number] [address] [place] Nucleated RBC (Bld) [#/Vol] 10*3/uL Normal <0.01 [facility] Comment on above: Order Comment: Speci men Type: BLOOD SPECIMENOrdering Facility: [facility] Address: [address] [place] [address] Performed By: #### 5 8410-2 ####[facility] LABORATORYCLIA [id number] [place] [address] [place] Platelet mean volume (Bld) [Entitic vol] 9.8 fL Normal 9.0-12.7 [facility] Comment on above: Order Comment: Speci men Type: BLOOD SPECIMENOrdering Facility: [facility] Address: [address] [place] [address] Performed By: #### 5 8410-2 ####[facility] LABORATORYCLIA [id number] [place] [address] [place] Platelets (Bld) [#/Vol] 60 10*3/uL Low 150-400 [facility] Comment on above: Order Comment: Speci men Type: BLOOD SPECIMENOrdering Facility: [facility] Address: [address] [place] [address] Result Comment: Resu lts checked and verified.No clot detected. Performed By: #### 5 8410-2 ####[facility] LABORATORYCLIA [id number] [place] [id number] [place] RBC (Bld) [#/Vol] 3.14 10*6/uL Low 3.90-5.20 [facility] Comment on above: Order Comment: Speci men Type: BLOOD SPECIMENOrdering Facility: [facility] Address: [address] [place] [address] Performed By: #### 5 8410-2 ####[facility] LABORATORYCLIA [id number] [place] [id number] [place] WBC (Bld) [#/Vol] 3.46 10*3/uL Low 3.70-11.00 [facility] Comment on above: Order Comment: Speci men Type: BLOOD SPECIMENOrdering Facility: [facility] Address: [address] [place] [address] Performed By: #### 5 8410-2 ####[facility] LABORATORYCLIA [id number] [place] [id number] [facility] [place] Comprehensive metabolic 2000 panelon 10-18-2023 Albumin [Mass/Vol] 3.6 g/dL Low 3.9-4.9 [facility] Comment on above: Order Comment: Speci men Type: BLOOD SPECIMENOrdering Facility: [facility] Address: [address] [place] [address] Performed By: #### 1 9123-9, 44305-5 ####[facility] LABORATORYCLIA [id number] [address] [place] ALP [Catalytic activity/Vol] 42 U/L Normal 34-123 [facility] Comment on above: Order Comment: Speci men Type: BLOOD SPECIMENOrdering Facility: [facility] Address: [address] [place] [address] Performed By: #### 1 9123-9, 99839-9 ####[facility] LABORATORYCLIA [id number] [place] [id number] [place] ALT [Catalytic activity/Vol] 74 U/L High 7-38 [facility] Comment on above: Order Comment: Speci men Type: BLOOD SPECIMENOrdering Facility: [facility] Address: [address] [place] [address] Performed By: #### 1 9123-9, 13349-7 ####[facility] LABORATORYCLIA [id number] [address] [place] [address] [place] Anion gap [Moles/Vol] 10 mmol/L Normal 8-15 [facility] Comment on above: Order Comment: Speci men Type: BLOOD SPECIMENOrdering Facility: [facility] Address: [address] [place] [address] Performed By: #### 1 9123-9, 74634-8 ####[facility] LABORATORYCLIA [id number] [address] [place] [address] [place] AST [Catalytic activity/Vol] 104 U/L High 13-35 [facility] Comment on above: Order Comment: Speci men Type: BLOOD SPECIMENOrdering Facility: [facility] Address: [address] [place] [address] Performed By: #### 1 9123-9, 62401-1 ####[facility] LABORATORYCLIA [id number] [address] [place] [address] [place] Bilirubin [Mass/Vol] 0.6 mg/dL Normal 0.2-1.3 [facility] Comment on above: Order Comment: Speci men Type: BLOOD SPECIMENOrdering Facility: [facility] Address: [address] [place] [address] Performed By: #### 1 9123-9, 97632-6 ####[facility] LABORATORYCLIA [id number] [place] [address] [place] Calcium [Mass/Vol] 8.4 mg/dL Low 8.5-10.2 [facility] Comment on above: Order Comment: Speci men Type: BLOOD SPECIMENOrdering Facility: [facility] Address: [address] [place] [address] Performed By: #### 1 9123-9, 42661-6 ####[facility] LABORATORYCLIA [id number] [address] [place] [address] [place] Chloride [Moles/Vol] 107 mmol/L Normal 98-107 [facility] Comment on above: Order Comment: Speci men Type: BLOOD SPECIMENOrdering Facility: [facility] Address: [address] [place] [address] Performed By: #### 1 9123-9, 17460-6 ####[facility] LABORATORYCLIA [id number] [place] [address] [facility] CO2 [Moles/Vol] 21 mmol/L Low 22-30 [facility] Comment on above: Order Comment: Speci men Type: BLOOD SPECIMENOrdering Facility: [facility] Address: [address] [place] [address] Performed By: #### 1 9123-9, 38387-7 ####[facility] LABORATORYCLIA [id number] [address] [place] [facility] Creatinine [Mass/Vol] 0.57 mg/dL Low 0.58-0.96 [facility] Comment on above: Order Comment: Speci men Type: BLOOD SPECIMENOrdering Facility: [facility] Address: [address] [place] [address] Performed By: #### 1 9123-9, 70700-5 ####[facility] LABORATORYCLIA [id number] [address] Creatinine and Glomerular filtration rate.predicted panel (S/P/Bld) 109 mL/min/1.73m??? Normal >=60 [facility] Comment on above: Order Comment: Speci men Type: BLOOD SPECIMENOrdering Facility: [facility] Address: [address] [place] [address] Result Comment: Luisa mated Glomerular Filtration Rate [...] actual GFR. Performed By: #### 1 9123-9, 36472-6 ####[facility] LABORATORYCLIA [id number] [place] [id number] [place] Glucose [Mass/Vol] 112 mg/dL High 74-99 [facility] Comment on above: Order Comment: Speci men Type: BLOOD SPECIMENOrdering Facility: [facility] Address: [address] [place] [address] Result Comment: The [place] [employer] (ADA) provides guidance for cutoff [...] Standards of Medical Care in Diabetes 2016, [place] [employer]. Diabetes Care. 2016.39(Suppl 1). Performed By: #### 1 9123-9, 63424-2 ####[facility] LABORATORYCLIA [id number] [place] [address] [place] Potassium [Moles/Vol] 3.8 mmol/L Normal 3.7-5.1 [facility] Comment on above: Order Comment: Ruth caldera Type: BLOOD SPECIMENOrdering Facility: [facility] Address: [address] [place] [address] Performed By: #### 1 9123-9, 04407-9 ####[facility] LABORATORYCLIA [id number] [place] [address] [place] Protein [Mass/Vol] 5.8 g/dL Low 6.3-8.0 [facility] Comment on above: Order Comment: Joyi men Type: BLOOD SPECIMENOrdering Facility: [facility] Address: [address] [place] [address] Performed By: #### 1 9123-9, 36134-4 ####[facility] LABORATORYCLIA [id number] [place] [address] [place] Sodium [Moles/Vol] 138 mmol/L Normal 136-144 [facility] Comment on above: Order Comment: Speci men Type: BLOOD SPECIMENOrdering Facility: [facility] Address: [address] [place] [address] Performed By: #### 1 9123-9, 32043-2 ####[facility] LABORATORYCLIA [id number] [address] [place], [place] [address] [place] Urea nitrogen [Mass/Vol] 5 mg/dL Low 7 [facility] Comment on above: Order Comment: Speci men Type: BLOOD SPECIMENOrdering Facility: [facility] Address: [address] [place] [address] Performed By: #### 1 9123-9, 66046-5 ####[facility] LABORATORYCLIA [id number] [place] [id number] [place] Magnesium SerPl-mCncon 10-17 Magnesium [Mass/Vol] 2.0 mg/dL Normal 1.7-2.3 [facility] Comment on above: Order Comment: Speci men Type: BLOOD SPECIMENOrdering Facility: [facility] Address: [address] [place] [address] Performed By: #### 1 9123-9, 31974-9 ####[facility] LABORATORYCLIA [id number] [place] [id number] [place] CBC panel Auto (Bld)on 10-16 Erythrocyte distribution width (RBC) [Ratio] 13.2 % Normal 11.5-15.0 [facility] Comment on above: Order Comment: Speci men Type: BLOOD SPECIMENOrdering Facility: [facility] Address: [address] [place] [address] Performed By: #### 5 8410-2 ####[facility] LABORATORYCLIA [id number] [place] [id number] [place] Hematocrit (Bld) [Volume fraction] 32.2 % Low 36.0-46.0 [facility] Comment on above: Order Comment: Speci men Type: BLOOD SPECIMENOrdering Facility: [facility] Address: [address] [place] [address] Performed By: #### 5 8410-2 ####[facility] LABORATORYCLIA [id number] [address] [place] [address] [place] Hemoglobin (Bld) [Mass/Vol] 11.0 g/dL Low 11.5-15.5 [facility] Comment on above: Order Comment: Speci men Type: BLOOD SPECIMENOrdering Facility: [facility] Address: [address] [place] [address] Performed By: #### 5 8410-2 ####[facility] LABORATORYCLIA [id number] [address] [place] [address] [place] MCH (RBC) [Entitic mass] 34.2 pg High 26.0-34.0 [facility] Comment on above: Order Comment: Speci men Type: BLOOD SPECIMENOrdering Facility: [facility] Address: [address] [place] [address] Performed By: #### 5 8410-2 ####[facility] LABORATORYCLIA [id number] [address] [place] [facility] MCHC (RBC) [Mass/Vol] 34.2 g/dL Normal 30.5-36.0 [facility] Comment on above: Order Comment: Speci men Type: BLOOD SPECIMENOrdering Facility: [facility] Address: [address] [place] [address] Performed By: #### 5 8410-2 ####[facility] LABORATORYCLIA [id number] [address] [place] MCV (RBC) [Entitic vol] 100.0 fL Normal 80.0-100.0 [facility] Comment on above: Order Comment: Speci men Type: BLOOD SPECIMENOrdering Facility: [facility] Address: [address] [place] [address] Performed By: #### 5 8410-2 ####[facility] LABORATORYCLIA [id number] [address] [place] [address] [place] Nucleated RBC (Bld) [#/Vol] 10*3/uL Normal <0.01 [facility] Comment on above: Order Comment: Speci men Type: BLOOD SPECIMENOrdering Facility: [facility] Address: [address] [place] [address] Performed By: #### 5 8410-2 ####[facility] LABORATORYCLIA [id number] [address] [place], [place] [address] [place] Platelet mean volume (Bld) [Entitic vol] 10.1 fL Normal 9.0-12.7 [facility] Comment on above: Order Comment: Speci men Type: BLOOD SPECIMENOrdering Facility: [facility] Address: [address] [place] [address] Performed By: #### 5 8410-2 ####[facility] LABORATORYCLIA [id number] [address] [place], [place] [address] [place] Platelets (Bld) [#/Vol] 51 10*3/uL Low 150-400 [facility] Comment on above: Order Comment: Speci men Type: BLOOD SPECIMENOrdering Facility: [facility] Address: [address] [place] [address] Performed By: #### 5 8410-2 ####[facility] LABORATORYCLIA [id number] [address] [place], [place] [address] [place] RBC (Bld) [#/Vol] 3.22 10*6/uL Low 3.90-5.20 [facility] Comment on above: Order Comment: Speci men Type: BLOOD SPECIMENOrdering Facility: [facility] Address: [address] [place] [address] Performed By: #### 5 8410-2 ####[facility] LABORATORYCLIA [id number] [place] [address] [place] WBC (Bld) [#/Vol] 3.58 10*3/uL Low 3.70-11.00 [facility] Comment on above: Order Comment: Speci men Type: BLOOD SPECIMENOrdering Facility: [facility] Address: [address] [place] [address] Performed By: #### 5 8410-2 ####[facility] LABORATORYCLIA [id number] [place] [id number] [place] Comprehensive metabolic 2000 panelon 10-17-2023 Albumin [Mass/Vol] 4.0 g/dL Normal 3.9-4.9 [facility] Comment on above: Order Comment: Speci men Type: BLOOD SPECIMENOrdering Facility: [facility] Address: [address] [place] [address] Performed By: #### 2 4323-8, 31238-3 ####[facility] LABORATORYCLIA [id number] [place] [id number] [place] ALP [Catalytic activity/Vol] 43 U/L Normal 34-123 [facility] Comment on above: Order Comment: Speci men Type: BLOOD SPECIMENOrdering Facility: [facility] Address: [address] [place] [address] Performed By: #### 2 4323-8, 84153-8 ####[facility] LABORATORYCLIA [id number] [place] [address] [place] ALT [Catalytic activity/Vol] 74 U/L High 7-38 [facility] Comment on above: Order Comment: Speci men Type: BLOOD SPECIMENOrdering Facility: [facility] Address: [address] [place] [address] Performed By: #### 2 4323-8, 62047-1 ####[facility] LABORATORYCLIA [id number] [place] [address] [place] Anion gap [Moles/Vol] 14 mmol/L Normal 8-15 [facility] Comment on above: Order Comment: Speci men Type: BLOOD SPECIMENOrdering Facility: [facility] Address: [address] [place] [address] Performed By: #### 2 4323-8, 66036-0 ####[facility] LABORATORYCLIA [id number] [place] [address] [place] AST [Catalytic activity/Vol] 92 U/L High 13-35 [facility] Comment on above: Order Comment: Speci men Type: BLOOD SPECIMENOrdering Facility: [facility] Address: [address] [place] [address], [place] [address] Performed By: #### 2 4323-8, ####[facility] LABORATORYCLIA [id number] [address] [place], [place] [address] [place] Bilirubin [Mass/Vol] 0.7 mg/dL Normal 0.2-1.3 [facility] Comment on above: Order Comment: Speci men Type: BLOOD SPECIMENOrdering Facility: [facility] Address: [address] [place] [address] Performed By: #### 2 4323-8, ####[facility] LABORATORYCLIA [id number] [address] [place], [place] [address] [place] Calcium [Mass/Vol] 8.4 mg/dL Low 8.5-10.2 [facility] Comment on above: Order Comment: Speci men Type: BLOOD SPECIMENOrdering Facility: [facility] Address: [address] [place] [address] [place] [address] Performed By: #### 2 43206-25, ####[facility] LABORATORYCLIA [id number] [place] [address] [place] Chloride [Moles/Vol] 103 mmol/L Normal 98-107 [facility] Comment on above: Order Comment: Speci men Type: BLOOD SPECIMENOrdering Facility: [facility] Address: [address] [place] [address] Performed By: #### 2 4323-8, ####[facility] LABORATORYCLIA [id number] [place] [id number] [place] CO2 [Moles/Vol] 21 mmol/L Low 22-30 [facility] Comment on above: Order Comment: Speci men Type: BLOOD SPECIMENOrdering Facility: [facility] Address: [address] [place] [address] Performed By: #### 2 4323-8, ####[facility] LABORATORYCLIA [id number] [address] [place], [place] [address] [place] Creatinine [Mass/Vol] 0.58 mg/dL Normal 0.58-0.96 [facility] Comment on above: Order Comment: Ruth caldera Type: BLOOD SPECIMENOrdering Facility: [facility] Address: [address] [place] [address] Performed By: #### 2 4323-8, 68653-8 ####[facility] LABORATORYCLIA [id number] [place] [id number] [place] Creatinine and Glomerular filtration rate.predicted panel (S/P/Bld) 108 mL/min/1.73m??? Normal >=60 [facility] Comment on above: Order Comment: Ruth caldera Type: BLOOD SPECIMENOrdering Facility: [facility] Address: [address] [place] [address] Result Comment: Luisa mated Glomerular Filtration Rate [...] actual GFR. Performed By: #### 2 4323-8, 08857-0 ####[facility] LABORATORYCLIA [id number] [place] [id number] [place] Glucose [Mass/Vol] 98 mg/dL Normal 74-99 [facility] Comment on above: Order Comment: uRth caldera Type: BLOOD SPECIMENOrdering Facility: [facility] Address: [address] [address] Result Comment: The [place] [employer] (ADA) provides guidance for cutoff [...] Standards of Medical Care in Diabetes 2016, [place] [employer]. Diabetes Care. 2016.39(Suppl 1). Performed By: #### 2 4323-8, 57001-1 ####[facility] LABORATORYCLIA [id number] [address] [place], [place] [address] [place] Potassium [Moles/Vol] 3.3 mmol/L Low 3.7-5.1 [facility] Comment on above: Order Comment: Speci men Type: BLOOD SPECIMENOrdering Facility: [facility] Address: [address] [place] [address] Performed By: #### 2 4323-8, ####[facility] LABORATORYCLIA [id number] [address] [place], [place] [address] [place] Protein [Mass/Vol] 6.1 g/dL Low 6.3-8.0 [facility] Comment on above: Order Comment: Speci men Type: BLOOD SPECIMENOrdering Facility: [facility] Address: [address] [place] [address] Performed By: #### 2 432-8, ####[facility] LABORATORYCLIA [id number] [place] [id number] [place] Sodium [Moles/Vol] 138 mmol/L Normal 136-144 [facility] Comment on above: Order Comment: Speci men Type: BLOOD SPECIMENOrdering Facility: [facility] Address: [address] [place] [address] Performed By: #### 2 4323-8, ####[facility] LABORATORYCLIA [id number] [place] [id number] [place] Urea nitrogen [Mass/Vol] 6 mg/dL Low 7-21 [facility] Comment on above: Order Comment: Speci men Type: BLOOD SPECIMENOrdering Facility: [facility] Address: [address] [place] [address] Performed By: #### 2 4323-8, 28600-6 ####[facility] LABORATORYCLIA [id number] [address] [place], [place] [address] [place] GGT SerPl-cCncon 10-17-2023 Gamma glutamyl transferase [Catalytic activity/Vol] 793 U/L [address] Comment on above: Order Comment: Speci men Type: BLOOD SPECIMENOrdering Facility: [facility] Address: [address] [place] [address] Performed By: #### 2 324-2 ####[facility] LABCLIA [id number] [place] [address] [facility] OF [place] Magnesium SerPl-mCncon 10-16 Magnesium [Mass/Vol] 2.0 mg/dL Normal 1.7-2.3 [facility] Comment on above: Order Comment: Speci men Type: BLOOD SPECIMENOrdering Facility: [facility] Address: [address] [place] [address] Performed By: #### 2 4323-8, 49996-1 ####[facility] LABORATORYCLIA [id number] [address] STATES [place] CASE MGT INIT ASSESon 2023 CASE MGT INIT ASSES HNO ID: [id number] Author: JANEY ALBRECHT LISW Service: ? Author Type: Collector Of Internal Revenue Type: Care Mgt Initial Assessment Filed: 10/16/2023 15:27 Note Text: CARE MANAGEMENT: ASSESSMENT AND DISCHARGE PLAN SERVICE DATE: October 16, 2023 SERVICE TIME: 3:23 PM PCP: Jhoan Roberto MD Primary Contact: Extended Emergency Contact Information Primary Emergency Contact: Ana Ruvalcaba Mobile Relation: Daughter Secondary Emergency Contact: Shreya Ruvalcaba Mobile Relation: Daughter Admission Status: Observation Insurance Provider: [facility] Discharge Planning requested by: Per Department Practice Potential Transition Plans Home Advance Directives Current Advance Directive: None Frit Coater Attempted to Assist with AD Completion: No [...] Patient Goal(s): Be able to go home [place] of Choice Explained: [place] of Choice Given: No Reason Not Given: [...] Yes - Do you ever drink an 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 Yes Transport at Discharge: Transportation Arrangements: Car Needs Prior to Discharge: Needs Prior to Discharge: To Be Determined Post-Acute Discharge Plan: CM assessed patient at bedside. Patient has virtual sitter at bedside. Patient reports that she lives at home with her daughter, son in law and 19 month old grandchild. 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 Patient reports she will need hospital staff to complete forms so she can return to work. Patient reports that she is not sure about sobriety. Patient has a sponsor through [employer] she talks to daily. Patient reports she [...] Plan is for patient to go to [facility]. CM will remain available. SIGNATURE: JADA Tomas PATIENT NAME: Eemly Cleveland DATE: October 16, 2023 TIME: 3:23 PM CONTACT #: [phone] [facility] CBC panel Auto (Bld)on 10-15 Erythrocyte distribution width (RBC) [Ratio] 13.1 % Normal 11.5-15.0 [facility] Comment on above: Order Comment: Speci men Type: BLOOD SPECIMENOrdering Facility: [facility] Address: [address] [place] [address] Performed By: #### 5 8410-2 ####[facility] LABORATORYCLIA [id number] [address] [place], [place] [address] [place] Hematocrit (Bld) [Volume fraction] 31.8 % Low 36.0-46.0 [facility] Comment on above: Order Comment: Speci men Type: BLOOD SPECIMENOrdering Facility: [facility] Address: [address] [place] [address] Performed By: #### 5 8410-2 ####[facility]IAN[facility] LABORATORYCLIA [id number] [place] [address] [place] Hemoglobin (Bld) [Mass/Vol] 10.7 g/dL Low 11.5-15.5 [facility] Comment on above: Order Comment: Speci men Type: BLOOD SPECIMENOrdering Facility: [facility] Address: [address] [place] [address] Performed By: #### 5 8410-2 ####[facility] LABORATORYCLIA [id number] [place] [address] [place] MCH (RBC) [Entitic mass] 33.0 pg Normal 26.0-34.0 [facility] Comment on above: Order Comment: Speci men Type: BLOOD SPECIMENOrdering Facility: [facility] Address: [address] [place] [address] Performed By: #### 5 8410-2 ####[facility]STIAN[facility] LABORATORYCLIA [id number] [place] [address] [place] MCHC (RBC) [Mass/Vol] 33.6 g/dL Normal 30.5-36.0 [facility] Comment on above: Order Comment: Speci men Type: BLOOD SPECIMENOrdering Facility: [facility] Address: [address] [place] [address] Performed By: #### 5 8410-2 ####[facility]IAN[facility] LABORATORYCLIA [id number] [address] [place], [place] [address] [place] MCV (RBC) [Entitic vol] 98.1 fL Normal 80.0-100.0 [facility] Comment on above: Order Comment: Speci men Type: BLOOD SPECIMENOrdering Facility: [facility] Address: [address] [place] [address] Performed By: #### 5 8410-2 ####[facility]STIAN[facility] LABORATORYCLIA [id number] [address] [place], [place] [address] [place] Nucleated RBC (Bld) [#/Vol] 10*3/uL Normal <0.01 [facility] Comment on above: Order Comment: Speci men Type: BLOOD SPECIMENOrdering Facility: [facility] Address: [address] [place] [address] Performed By: #### 5 8410-2 ####CH[facility]STIAN[facility] LABORATORYCLIA [id number] [place] [address] [place] Platelet mean volume (Bld) [Entitic vol] 9.4 fL Normal 9.0-12.7 [facility] Comment on above: Order Comment: Speci men Type: BLOOD SPECIMENOrdering Facility: [facility] Address: [address] [place] [address] Performed By: #### 5 8410-2 ####CH[facility]STIAN[facility] LABORATORYCLIA [id number] [place] [address] [place] Platelets (Bld) [#/Vol] 68 10*3/uL Low 150-400 [facility] Comment on above: Order Comment: Speci men Type: BLOOD SPECIMENOrdering Facility: [facility] Address: [address] [place] [address] Performed By: #### 5 8410-2 ####CH[facility]STIAN[facility] LABORATORYCLIA [id number] [place] [address] [place] RBC (Bld) [#/Vol] 3.24 10*6/uL Low 3.90-5.20 [facility] Comment on above: Order Comment: Speci men Type: BLOOD SPECIMENOrdering Facility: [facility] Address: [address] [facility] [place] [address] Performed By: #### 5 8410-2 ####CH[facility]STIANITY LABORATORYCLIA [id number] [place] [address] [place] [facility] WBC (Bld) [#/Vol] 3.68 10*3/uL Low 3.70-11.00 [facility] Comment on above: Order Comment: Speci men Type: BLOOD SPECIMENOrdering Facility: [facility] Address: [address] [address] [address] [place] [address] Performed By: #### 5 8410-2 ####CH[facility]STIAN[facility] LABORATORYCLIA [id number] [place] [address] [facility] CONSULTon 10-16-2023 CONSULT HNO ID: [id number] Author: ZAKIA PEREZ MD Service: Clinical Cardiology [...] spray Unknown Yes No Sig: Use 1 Stitzer in each nostril as needed. losartan-hydroCHLOROthia zide [...] mL INTRAVENOUS D (more content not included)... [facility] CONSULT HNO ID: [id number] Author: STEPHANIE MEJÍA APRN.CATARACT LENS GENERATOR Service: Psychiatry Author Type: Nurse Practitioner Type: Consults Filed: 10/16/2023 13:15 Note Text: CL NEW - PSYCHIATRY INITIAL CONSULTATION NOTE SERVICE DATE: October 16, 2023 SERVICE TIME: 1245 CONSULTING SERVICE : Psychiatry REASON FOR CONSULTATION: Alcohol Detox Visit Type: In person IDENTIFYING INFO: Ms. Cleveland is a 53 year old female from [place], [place]. RECOMMENDATIONS: 1.) Start Librium taper 25 mg QID x 4 doses then 10 mg QID x 4 doses, then 5 mg QID x 4 doses 2.) CIWA with symptom-triggered Lorazepam 3.) Seizure Precautions 4.) Check GGT 5.) Start Acamprosate 666 mg BID x 2 tomorrow then increase to 999 mg BID 6.) Increase Lexapro 20 mg daily 7.) Consider transfer to [facility] when medically cleared if appropriate DIAGNOSIS: AUD, [...] She has done IOP most recently through [facility] 8 months ago but did not finish [...] stopped SOCIAL HISTORY: Childhood: very controlling and adventism Relationships: Children: 2 adult children Living Situation: with daughter, son-in-law, and grandchild Education: College - Master's Degree Employment: employed full-time Current Supports: family Legal History: n/a Mandaen Affiliation(s): no FAMILY PSYCHIATRIC HISTORY: Siblings - [...] Anxiety Disorder S (more content not included)... [facility] CONSULT HNO ID: [id number] Author: BIN FUENTES MD Service: Neurology General Author Type: Physician Type: Consults Filed: 10/16/2023 12:46 Note Text: Syncope vs. Convulsive syncope Will check EEG , carotid duplex and ortho changes R/O Cardiac etiology Patient's neuro exam non focal Normal [facility] CONSULT HNO ID: [id number] Author: BIN FUENTES MD Service: Neurology General Author Type: Physician Type: Consults Filed: 10/19/2023 08:02 Note Text: [facility] - Consultation EMELY CLEVELAND : 1970 AGE: 53 SEX: F CSN: [id number] [facility]: Medical LOCATION: [facility] ATTENDING PHYSICIAN: Tod Wong M.D. DATE OF SERVICE: 10/16/2023 TIME OF SERVICE: 12:45 PM CONSULTING PHYSICIAN: Bin Fuentes M.D. HISTORY OF PRESENT ILLNESS: The patient is a 53-year-old white female, right- handed, with a past medical history significant for alcohol abuse, hypertension, hyperlipidemia, gastroesophageal reflux disease, who had been admitted to [facility] with event of transient loss of consciousness. [...] be ruled out. Bin Fuentes M.D. Neurology HK:[id number] /[id number] [facility] CONSULT PROGon 10-16-2023 CONSULT PROG HNO ID: [id number] Author: SHARITA BEVERLY [facility] Service: Pharmacy Author Type: Pharmacist Type: Consult [...] and receiving diazepam Thank you, Sharita Beverly, [facility] Pager: [phone] [facility] [address] BRAIN WO IVCONon 10-16-19 CT [...] Head trauma, coagulopathy (Age 19-64y), fall (accession [id number]), Facial trauma, blunt, mouth bleeding post fall, left upper lip laceration (accession [id number]) TECHNIQUE: Serial axial images without IV contrast were obtained from the vertex to the craniocervical junction. Spiral high resolution axial unenhanced images were obtained through the facial bones with sagittal and coronal planar reconstructions. CT Radiation dose: Integrated Dose-Length Product (DLP) for this visit = 778 (accession [id number]), 456 (accession [id number]) mGy*cm CT Dose Reduction Employed: No dose reduction techniques were required (accession [id number]), Automated exposure control(AEC) and iterative recon (accession [id number]) COMPARISON: CT brain 10/15/2023 RESULT: HEAD: Post-operative [...] vertebrae with counting from the craniocervical junction. Information Security Architect[facility] Transcribe Date/Time: Oct 16 2023 6:57A Dictated by : JHOAN ROGEL MD This examination was interpreted and the report reviewed and electronically signed by: JHOAN ROGEL MD on Oct 16 2023 7:05AM EST [id number] [facility] CT FACIAL BONE/MICHOACANO WO IVCON on [...] Head trauma, coagulopathy (Age 19-64y), fall (accession [id number]), Facial trauma, blunt, mouth bleeding post fall, left upper lip laceration (accession [id number]) TECHNIQUE: Serial axial images without IV contrast were obtained from the vertex to the craniocervical junction. Spiral high resolution axial unenhanced images were obtained through the facial bones with sagittal and coronal planar reconstructions. CT Radiation dose: Integrated Dose-Length Product (DLP) for this visit = 778 (accession [id number]), 456 (accession [id number]) mGy*cm CT Dose Reduction Employed: No dose reduction techniques were required (accession [id number]), Automated exposure control(AEC) and iterative recon (accession [id number]) COMPARISON: CT brain 10/15/2023 RESULT: HEAD: Post-operative [...] vertebrae with counting from the craniocervical junction. Information Security Architect: [facility] Transcribe Date/Time: Oct 16 2023 6:57A Dictated by : JHOAN ROGEL MD This examination was interpreted and the report reviewed and electronically signed by: JHOAN ROGEL MD on Oct 16 2023 7:05AM EST [id number] Normal [facility] Comprehensive metabolic 2000 panelon 10-16-2023 Albumin [Mass/Vol] 3.9 g/dL Normal 3.9-4.9 [facility] Comment on above: Order Comment: Speci men Type: BLOOD SPECIMENOrdering Facility: [facility] Address: [address] [place] [address] Performed By: #### 2 4323-8, 73302-0, 9, 53528-9, 3016-3, 3040-3 ####[facility] CAMPUSCLIA [id number] [place] [address] [place] ALP [Catalytic activity/Vol] 41 U/L Normal 34-123 [facility] Comment on above: Order Comment: Speci men Type: BLOOD SPECIMENOrdering Facility: [facility] Address: [address] [place] [address] Performed By: #### 2 4323-8, 18802-2, 9, 79872-5, 3016-3, 3040-3 ####CH[facility]IAN[facility] LABORATORYCLIA [id number] [place] [address] [place] ALT [Catalytic activity/Vol] 80 U/L High 7-38 [facility] Comment on above: Order Comment: Speci men Type: BLOOD SPECIMENOrdering Facility: [facility] Address: [address] [place], [place] [address] Performed By: #### 2 4323-8, 81131-6, 9, 16030-8, 3016-3, 3040-3 ####[facility] LABORATORYCLIA [id number] [address] [address] [place] Anion gap [Moles/Vol] 14 mmol/L Normal 8-15 [facility] Comment on above: Order Comment: Speci men Type: BLOOD SPECIMENOrdering Facility: [facility] Address: [address] [place], [place] [address] Performed By: #### 2 4323-8, 75984-7, 2131-12, 16196-0, 3016-3, 3040-3 ####CH[facility] LABORATORYCLIA [id number] [place] [address] [place] AST [Catalytic activity/Vol] 86 U/L High 13-35 [facility] Comment on above: Order Comment: Speci men Type: BLOOD SPECIMENOrdering Facility: [facility] Address: [address] [place], [place] [address] Performed By: #### 2 4323-8, 09802-6, 2131-12, 06096-7, 3016-3, 3040-3 ####[facility] LABORATORYCLIA [id number] [place] [address] [place] Bilirubin [Mass/Vol] 0.8 mg/dL Normal 0.2-1.3 [facility] Comment on above: Order Comment: Speci men Type: BLOOD SPECIMENOrdering Facility: [facility] Address: [address] [place] [address] Performed By: #### 2 4323-8, 48964-3, 9, 65241-6, 3016-3, 3040-3 ####[facility] LABORATORYCLIA [id number] [address] [address] [place] Calcium [Mass/Vol] 8.5 mg/dL Normal 8.5-10.2 [facility] Comment on above: Order Comment: Speci men Type: BLOOD SPECIMENOrdering Facility: [facility] Address: [facility] [place] [address] Performed By: #### 2 4323-8, 76155-0, 2131-9, 11879-6, 3016-3, 3040-3 ####[facility] LABORATORYCLIA [id number] [address] [address] [place] Chloride [Moles/Vol] 97 mmol/L Low 98-107 [facility] Comment on above: Order Comment: Speci men Type: BLOOD SPECIMENOrdering Facility: [facility] Address: [facility] [place] [address] Performed By: #### 2 4323-8, 50882-7, 9, 25590-7, 3016-3, 3040-3 ####[facility] LABORATORYCLIA [id number] [place] [address] [place] CO2 [Moles/Vol] 24 mmol/L Normal 22-30 [facility] Comment on above: Order Comment: Speci men Type: BLOOD SPECIMENOrdering Facility: [facility] Address: [facility] [place] [address] Performed By: #### 2 4323-8, 31435-5, 9, 84652-0, 3016-3, 3040-3 ####[facility] LABORATORYCLIA [id number] [place] [address] [place] Creatinine [Mass/Vol] 0.65 mg/dL Normal 0.58-0.96 [facility] Comment on above: Order Comment: Speci men Type: BLOOD SPECIMENOrdering Facility: [facility] Address: [facility] [place] [address] Performed By: #### 2 4323-8, 68292-7, 9, 94631-5, 3016-3, 3040-3 ####CH[facility]STIAN[facility] LABORATORYCLIA [id number] [place] [address] [place] Creatinine and Glomerular filtration rate.predicted panel (S/P/Bld) 105 mL/min/1.73m??? Normal >=60 [facility] Comment on above: Order Comment: Ruth caldera Type: BLOOD SPECIMENOrdering Facility: [facility] Address: [address] [place] [address] Result Comment: Luisa mated Glomerular Filtration Rate [...] actual GFR. Performed By: #### 2 4323-8, 42875-2, 2131-12, 43711-3, 3016-3, 3040-3 ####CHRISTIAN[facility] LABORATORYCLIA [id number] [place] [address] [place] Glucose [Mass/Vol] 124 mg/dL High 74-99 [facility] Comment on above: Order Comment: Ruth caldera Type: BLOOD SPECIMENOrdering Facility: [facility] Address: [address] [place] [address] Result Comment: The [place] Diabetes Association (ADA) provides guidance for cutoff [...] Standards of Medical Care in Diabetes 2016, [place] Diabetes Association. Diabetes Care. 2016.39(Suppl 1). Performed By: #### 2 4323-8, 97410-8, 9, 65484-4, 3016-3, 3040-3 ####[facility]IAN[facility] LABORATORYCLIA [id number] [address] [address] [place] Potassium [Moles/Vol] 3.3 mmol/L Low 3.7-5.1 [facility] Comment on above: Order Comment: Speci men Type: BLOOD SPECIMENOrdering Facility: [facility] Address: [address] [place] [address] Performed By: #### 2 4323-8, 49305-0, 2131-9, 87353-0, 3016-3, 3040-3 ####[facility] LABORATORYCLIA [id number] [place] [address] [place] Protein [Mass/Vol] 6.0 g/dL Low 6.3-8.0 [facility] Comment on above: Order Comment: Speci men Type: BLOOD SPECIMENOrdering Facility: [facility] Address: [address] [place] [address] Performed By: #### 2 4323-8, 09577-3, 9, 55256-2, 3016-3, 3040-3 ####CH[facility]IAN[facility] LABORATORYCLIA [id number] [place] [address] [place] Sodium [Moles/Vol] 135 mmol/L Low 136-144 [facility] Comment on above: Order Comment: Speci men Type: BLOOD SPECIMENOrdering Facility: [facility] Address: [address] [place] [address] Performed By: #### 2 4323-8, 54041-2, 2131-9, 46402-3, 3016-3, 3040-3 ####CH[facility]STIAN[facility] LABORATORYCLIA [id number] [place] [address] [place] Urea nitrogen [Mass/Vol] 12 mg/dL Normal 7-21 [facility] Comment on above: Order Comment: Speci men Type: BLOOD SPECIMENOrdering Facility: [facility] Address: [address] [place] [address] Performed By: #### 2 4323-8, 54464-9, 2131-9, 63465-8, 3016-3, 3040-3 ####CH[facility]STIAN[facility] LABORATORYCLIA [id number] [place] [address] [facility] ECHOon 10-16-2023 Echocardiography Echocardiography Rep ort: Transthoracic Echo [facility] Date of service: 10/16/2023 10:43:51 AM Ordering physician: BRANDY VARGAS Indication: Syncope Technologist: [facility] Interpreting physician: Zakia Perez MD PATIENT: Name: [...] The mitral valve leaflets are structurally normal. [place] mitral valve. There is no mitral annular calcification. There is no mitral stenosis. There is no mitral valve regurgitation. There is no thickening. There is no calcification. The pressure half time is 47 msec. The peak mitral E/A ratio is 0.78. The mitral flow deceleration time is 161 msec. TRICUSPID VALVE The tricuspid valve leaflets are structurally normal. [place] tricuspid valve. There is no tricuspid annular [...] * * Final * * * CC [employer] : [id number] ID Normal [facility] ED NOTEon 10-16-2023 ED NOTE HNO ID: [id number] Author: SONJA PADILLA RN Service: ? Author Type: Registered Nurse Type: ED Notes Filed: 10/16/2023 08:41 Note Text: Report called to 4D. Patient given written and verbal d/c instructions. All patient questions addressed and answered. Patient verbalized understanding. Instructed to follow up with PCP and to return to ED if conditions and symptoms persist or worsen. [facility] ED NOTE HNO ID: [id number] Author: SONJA PADILLA RN Service: ? Author Type: Registered Nurse Type: ED Notes Filed: 10/16/2023 07:52 Note Text: LIP at bedside for lac repair. [facility] ED NOTE HNO ID: [id number] Author: SONJA PADILLA RN Service: ? Author [...] noted to outer corner of R lip. [facility] ED PROV NOTEon 10-16-2023 ED PROV NOTE HNO ID: [id number] Author: WENDI RAMON DO Service: Emergency Medicine Author Type: Physician Type: ED Provider Notes Filed: 10/16/2023 08:35 Note Text: This is a 53-year-old female who is currently admitted at [facility]. Was brought down to the ED for lip laceration repair. Has 0.5 cm laceration on the left upper lip which extends through the vermilion border. I used a 5-0 Ethilon suture to approximate the vermilion border. Two 5-0 fast-absorbing gut sutures were used to repair the rest of the lip. Patient tolerated procedure well. Sent back to inpatient unit. WENDI RAMON 10/16/23 0835 [facility] HISTORY PHYSICALon HISTORY PHYSICAL HNO ID: [id number] Author: TOD WONG MD Service: General Internal [...] (FLONASE) 50 mcg/actuation nasal spray, Use 1 Stitzer in each nostril as needed., Disp: , [...] and g (more content not included)... Normal [facility] Lactate (Bld) [Moles/Vol]on 10-16-2023 Lactate [Moles/Vol] 1.3 mmol/L Normal 0.5-2.2 [facility] Comment on above: Order Comment: Speci men Type: BLOOD SPECIMENOrdering Facility: [facility] Address: [address] [place] [address] Performed By: #### 3 2693-4 ####[facility] LABORATORYCLIA [id number] [place] [address] [place] Lipase SerPl-cCncon 10-16-19 24 Lipase [Catalytic activity/Vol] 85 U/L High 16-61 [facility] Comment on above: Order Comment: Speci men Type: BLOOD SPECIMENOrdering Facility: [facility] Address: [address] [place] [address] Performed By: #### 2 4323-8, 50668-6, 2132-9, 00536-5, 3016-3, 3040-3 ####[facility] LABORATORYCLIA [id number] [place] [address] [place] Lipid 1996 panelon 4 Cholesterol [Mass/Vol] 319 mg/dL High <200 [facility] Comment on above: Order Comment: Speci men Type: BLOOD SPECIMENOrdering Facility: [facility] Address: [address] [place] [address] Result Comment: <200 mg/dL, Desirable 200-239 mg/dL, Borderline high >239 mg/dL, High Performed By: #### 2 4323-8, 87408-7, 2131-12, 93842-9, 3016-3, 3040-3 ####[facility] LABORATORYCLIA [id number] [address] [place], [place] [address] [place] Cholesterol in HDL [Mass/Vol] 134 mg/dL Normal >39 [facility] Comment on above: Order Comment: Speci men Type: BLOOD SPECIMENOrdering Facility: [facility] Address: [address] [place] [address] Result Comment: 40-5 9 mg/dL, Acceptable >59 mg/dL, High: Negative risk factor for coronary heart disease <40 mg/dL, Low: Positive risk factor for coronary heart disease Performed By: #### 2 4323-8, 56980-5, 9, 98987-8, 3016-3, 3040-3 ####[facility] LABORATORYCLIA [id number] [address] [place], [place] [address] [facility] Cholesterol in LDL [Mass/Vol] 162 mg/dL High <100 [facility] Comment on above: Order Comment: Speci men Type: BLOOD SPECIMENOrdering Facility: [facility] Address: [address] [place] [address] Result Comment: <100 mg/dL, Optimal 100-129 mg/dL, Near optimal/above optimal 130-159 mg/dL, Borderline high 160-189 mg/dL, High >189 mg/dL, Very high Secondary prevention optimal LDL Cholesterol levels are recommended to be < 70 mg/dL Performed By: #### 2 4323-8, 50155-9, 9, 72358-3, 3016-3, 3040-3 ####[facility] LABORATORYCLIA [id number] [address] [place] Cholesterol in LDL/Cholesterol in HDL [Mass ratio] 1.21 {ratio} Normal <2.54 [facility] Comment on above: Order Comment: Speci men Type: BLOOD SPECIMENOrdering Facility: [facility] Address: [address] [place] [address] Result Comment: Wayne osorio: 1. National Cholesterol Education Program ATP III Guideline At-A-Glance Quick Desk Reference: National Heart, Lung, and Blood [place]. National Institutes of Health. 2001: NIH Publication No. 01-3305. 2. An International Atherosclerosis Society position paper: global recommendations for the management of dyslipidemia: executive summary, Atherosclerosis. 2014: 232(2):410-413. Performed By: #### 2 4323-8, , 2131-12, 47839-4, 3016-3, 3040-3 ####[facility] LABORATORYCLIA [id number] [place] [address] [place] Cholesterol in VLDL [Mass/Vol] 23 mg/dL Normal <30 [facility] Comment on above: Order Comment: Speci men Type: BLOOD SPECIMENOrdering Facility: [facility] Address: [address] [place] [address] Performed By: #### 2 4323-8, , 2131-12, 45475-2, 3016-3, 3040-3 ####[facility] LABORATORYCLIA [id number] [place] [address] [place] Cholesterol non HDL [Mass/Vol] 185 mg/dL High <130 [facility] Comment on above: Order Comment: Speci men Type: BLOOD SPECIMENOrdering Facility: [facility] Address: [address] [place] [address] Result Comment: <130 mg/dL, Optimal 130-159 mg/dL, Near optimal/above optimal 160-189 mg/dL, Borderline high 190-219 mg/dL, High >219 mg/dL, Very high Secondary prevention optimal non HDL Cholesterol levels are recommended to be <100 mg/dL Performed By: #### 2 4323-8, 08170-7, 2132-9, 84150-8, 3016-3, 3040-3 ####[facility] LABORATORYCLIA [id number] [place] [id number] [place] Cholesterol.total/Ch olesterol in HDL [Mass ratio] 2.38 {ratio} Normal <5.10 [facility] Comment on above: Order Comment: Speci men Type: BLOOD SPECIMENOrdering Facility: [facility] Address: [address] [place] [address] Performed By: #### 2 4323-8, 95659-8, 9, 19073-1, 3016-3, 3040-3 ####[facility] LABORATORYCLIA [id number] [place] [id number] [place] FASTING TIME 10 hrs Normal [facility] Comment on above: Order Comment: Speci men Type: BLOOD SPECIMENOrdering Facility: [facility] Address: [address] [place] [address] Performed By: #### 2 3-8, 95706-2, 9, 20966-7, 3016-3, 3040-3 ####[facility] LABORATORYCLIA [id number] [place] [address] [place] Triglyceride [Mass/Vol] 114 mg/dL Normal <150 [facility] Comment on above: Order Comment: Speci men Type: BLOOD SPECIMENOrdering Facility: [facility] Address: [address] [place] [address] Result Comment: <150 mg/dL, Normal 150-199 mg/dL, Borderline high 200-499 mg/dL, High >499 mg/dL, Very high Performed By: #### 2 4323-8, 37591-8, 9, 24722-6, 3016-3, 3040-3 ####[facility] LABORATORYCLIA [id number] [place] [address] [place] Magnesium SerPl-mCncon 10-15 Magnesium [Mass/Vol] 2.1 mg/dL Normal 1.7-2.3 [facility] Comment on above: Order Comment: Speci men Type: BLOOD SPECIMENOrdering Facility: [facility] Address: [address] [place] [address] Performed By: #### 2 4323-8, 94616-1, 2132-9, 59322-4, 3016-3, 3040-3 ####[facility] LABORATORYCLIA [id number] [address] OF [place]IT[place] NURSING PROGon 10-16-2023 NURSING PROG HNO ID: [id number] Author: AGNIE JACOB, MASSIMO Service: ? Author Type: Registered Nurse Type: Nursing Progress Note Filed: 10/16/2023 05:31 Note Text: Patient called to use the commode. Patient was assisted to commode. While on the commode staff member briefly left the room to gather supplies. When reentering the room patient was found on the floor. [facility] NUTRITIONon 10-16-2023 NUTRITION HNO ID: [id number] Author: IRENE RITTER RD Service: Nutrition Therapy [...] 1.1 oz) Dosing Weight Type: Current weight ([facility]) Estimated kilocalorie needs: 1792- 2151 Calorie [...] DATE: October 16, 2023 TIME: 2:14 PM [facility] SEPSIS LACTATEon 10-16-2023 Lactate [Moles/Vol] 1.6 mmol/L Normal 0.0-2.0 [facility] Comment on above: Order Comment: Speci men Type: BLOOD SPECIMENOrdering Facility: [facility] Address: [address] [place] [address] Performed By: #### S LACT ####[facility] LABORATORYCLIA [id number] [place] [address] [place] TSH SerPl-aCncon 10-16-2023 TSH Qn 3.520 m[IU]/L Normal 0.270-4.200 [facility] Comment on above: Order Comment: Speci men Type: BLOOD SPECIMENOrdering Facility: [facility] Address: [address] [place] [address] Performed By: #### 2 4323-8, 49777-3, 2131-9, 38122-6, 3016-3, 3040-3 ####[facility] LABORATORYCLIA [id number] [place] [id number] [place] Vit B12 SerPl-mCncon 024 Cobalamin (Vitamin B12) [Mass/Vol] 746 pg/mL Normal 232-1245 [facility] Comment on above: Order Comment: Speci men Type: BLOOD SPECIMENOrdering Facility: [facility] Address: [address] [place] [address] Performed By: #### 2 4323-8, 27619-5, 9, 20373-7, 3016-3, 3040-3 ####[facility] LABORATORYCLIA [id number] [place] [id number] [place] CBC W Auto Differential pane l (Bld)on 10-15-2023 Basophils (Bld) [#/Vol] 0.05 10*3/uL Normal <0.11 [facility] Comment on above: Order Comment: Speci men Type: BLOOD SPECIMENOrdering Facility: [facility] Address: [address] [place] [address] Performed By: #### 5 7021-8 ####[facility] LABORATORYCLIA [id number] [facility] [place] [address] [place] Basophils/100 WBC (Bld) 1.4 % Normal [facility] Comment on above: Order Comment: Speci men Type: BLOOD SPECIMENOrdering Facility: [facility] Address: [address] [place] [address] Performed By: #### 5 7021-8 ####[facility] LABORATORYCLIA [id number] [place] [address] [place] Differential cell count method Nom (Bld) Auto Normal [facility] Comment on above: Order Comment: Speci men Type: BLOOD SPECIMENOrdering Facility: [facility] Address: [address] [place] [address] Performed By: #### 5 7021-8 ####[facility] LABORATORYIA [id number] [place], [place] [address] [place] [address] STATES [place] Eosinophils (Bld) [#/Vol] 0.10 10*3/uL Normal <0.46 [facility] Comment on above: Order Comment: Speci men Type: BLOOD SPECIMENOrdering Facility: [facility] Address: [address] [place] [address] Performed By: #### 5 7021-8 ####[facility] LABORATORYIA [id number] [address] OF [place]ITOR Eosinophils/100 WBC (Bld) 2.9 % Normal [facility] Comment on above: Order Comment: Speci men Type: BLOOD SPECIMENOrdering Facility: [facility] Address: [address] [place] [address] Performed By: #### 5 7021-8 ####[facility] HOSPITALIA [id number] [address] OF [place] Erythrocyte distribution width (RBC) [Ratio] 13.1 % Normal 11.5-15.0 [facility] Comment on above: Order Comment: Speci men Type: BLOOD SPECIMENOrdering Facility: [facility] Address: [address] [place] [address] Performed By: #### 5 7021-8 ####[facility] LABORATORYIA [id number] [place] [address] [facility] OF VITOR Hematocrit (Bld) [Volume fraction] 36.4 % Normal 36.0-46.0 [facility] Comment on above: Order Comment: Speci men Type: BLOOD SPECIMENOrdering Facility: [facility] Address: [address] [place] [address] Performed By: #### 5 7021-8 ####[facility] LABORATORYIA [id number] [place] [address] [place] Hemoglobin (Bld) [Mass/Vol] 12.0 g/dL Normal 11.5-15.5 [facility] Comment on above: Order Comment: Speci men Type: BLOOD SPECIMENOrdering Facility: [facility] Address: [address] [place] [address] Performed By: #### 5 7021-8 ####[facility] LABORATORYCLIA [id number] [facility] [place] [address] [place] Immature granulocytes (Bld) [#/Vol] 0.04 10*3/uL Normal <0.10 [facility] Comment on above: Order Comment: Speci men Type: BLOOD SPECIMENOrdering Facility: [facility] Address: [address] [place] [address] Performed By: #### 5 7021-8 ####[facility] LABORATORYIA [id number] [address] STATES OF [place]IT[place] Immature granulocytes/100 WBC (Bld) 1.1 % Normal [facility] Comment on above: Order Comment: Speci men Type: BLOOD SPECIMENOrdering Facility: [facility] Address: [address] [place] [address] Performed By: #### 5 7021-8 ####[facility] HOSPITALIA [id number] [place] [address] [place] Lymphocytes (Bld) [#/Vol] 1.55 10*3/uL Normal 1.00-4.00 [facility] Comment on above: Order Comment: Speci men Type: BLOOD SPECIMENOrdering Facility: [facility] Address: [address] [place] [address] Performed By: #### 5 7021-8 ####[facility] LABORATORYIA [id number] [place] [id number] [place] Lymphocytes/100 WBC (Bld) 44.5 % Normal [facility] Comment on above: Order Comment: Speci men Type: BLOOD SPECIMENOrdering Facility: [facility] Address: [address] [place] [address] Performed By: #### 5 7021-8 ####[facility] LABORATORYIA [id number] [place] [address] [place] MCH (RBC) [Entitic mass] 33.3 pg Normal 26.0-34.0 [facility] Comment on above: Order Comment: Speci men Type: BLOOD SPECIMENOrdering Facility: [facility] Address: [address] [place] [address] Performed By: #### 5 7021-8 ####[facility] HOSPITALIA [id number] [place] [address] [place] MCHC (RBC) [Mass/Vol] 33.0 g/dL Normal 30.5-36.0 [facility] Comment on above: Order Comment: Speci men Type: BLOOD SPECIMENOrdering Facility: [facility] Address: [address] [place] [address] Performed By: #### 5 7021-8 ####[facility] HOSPITALIA [id number] [address] STATES OF [place] MCV (RBC) [Entitic vol] 101.1 fL High 80.0-100.0 [facility] Comment on above: Order Comment: Speci men Type: BLOOD SPECIMENOrdering Facility: [facility] Address: [address] [place] [address] Performed By: #### 5 7021-8 ####[facility] HOSPITALIA [id number] [place] [address] [place] Monocytes (Bld) [#/Vol] 0.45 10*3/uL Normal <0.87 [facility] Comment on above: Order Comment: Speci men Type: BLOOD SPECIMENOrdering Facility: [facility] Address: [address] [place] [address] Performed By: #### 5 7021-8 ####[facility] LABORATORYIA [id number] [place] [address] [place] Monocytes/100 WBC (Bld) 12.9 % Normal [facility] Comment on above: Order Comment: Speci men Type: BLOOD SPECIMENOrdering Facility: [facility] Address: [address] [place] [address] Performed By: #### 5 7021-8 ####[facility] LABORATORYIA [id number] [place] [address] [place] Neutrophils (Bld) [#/Vol] 1.29 10*3/uL Low 1.45-7.50 [facility] Comment on above: Order Comment: Speci men Type: BLOOD SPECIMENOrdering Facility: [facility] Address: [address] [place] [address] Performed By: #### 5 7021-8 ####[facility] HOSPITALIA [id number] [place] [id number] [place] Neutrophils/100 WBC (Bld) 37.2 % Normal [facility] Comment on above: Order Comment: Speci men Type: BLOOD SPECIMENOrdering Facility: [facility] Address: [address] [place] [address] Performed By: #### 5 7021-8 ####[facility] HOSPITALIA [id number] [place] [address] [place] Nucleated RBC (Bld) [#/Vol] 0.04 10*3/uL High <0.01 [facility] Comment on above: Order Comment: Speci men Type: BLOOD SPECIMENOrdering Facility: [facility] Address: [address] [place] [address] Performed By: #### 5 7021-8 ####[facility] HOSPITALIA [id number] [place] [address] [place] Nucleated RBC/100 WBC (Bld) [Ratio] 1.1 /100 WBC Normal [facility] Comment on above: Order Comment: Speci men Type: BLOOD SPECIMENOrdering Facility: [facility] Address: [address] [place] [address] Performed By: #### 5 7021-8 ####[facility] LABORATORYIA [id number] [place] [address] [place] Platelet mean volume (Bld) [Entitic vol] 9.3 fL Normal 9.0-12.7 [facility] Comment on above: Order Comment: Speci men Type: BLOOD SPECIMENOrdering Facility: [facility] Address: [address] [place] [address] Performed By: #### 5 7021-8 ####[facility] LABORATORYCLIA [id number] [facility] [place] [address] [place] Platelets (Bld) [#/Vol] 100 10*3/uL Low 150-400 [facility] Comment on above: Order Comment: Speci men Type: BLOOD SPECIMENOrdering Facility: [facility] Address: [address] [place] [address] Result Comment: No c lot detected. Performed By: #### 5 7021-8 ####[facility] HOSPITALIA [id number] [place] [address] [place] RBC (Bld) [#/Vol] 3.60 10*6/uL Low 3.90-5.20 [facility] Comment on above: Order Comment: Speci men Type: BLOOD SPECIMENOrdering Facility: [facility] Address: [address] [place] [address] Performed By: #### 5 7021-8 ####[facility] HOSPITALIA [id number] [place] [address] [place] WBC (Bld) [#/Vol] 3.48 10*3/uL Low 3.70-11.00 [facility] Comment on above: Order Comment: Speci men Type: BLOOD SPECIMENOrdering Facility: [facility] Address: [address] [place] [address] Performed By: #### 5 7021-8 ####[facility] LABORATORYCLIA [id number] [facility] [place] [address] [place] [address] [place] [address] BRAIN WO IVCONon 10-15-[address] BRAIN WO IVCON * * *Final Report* * * DATE OF EXAM: Oct 15 2023 11:31AM [facility] 0504 - CT BRAIN WO IVCON / [...] NO CT EVIDENCE OF ACUTE INTRACRANIAL PROCESS. Information Security Architect: PSCB Transcribe Date/Time: Oct 15 2023 11:46A Dictated by : LYNN FORMAN MD This examination was interpreted and the report reviewed and electronically signed by: LYNN FORMAN MD on Oct 15 2023 11:48AM EST [id number] Normal [facility] Comprehensive metabolic 2000 panelon 10-15-2023 Albumin [Mass/Vol] 4.4 g/dL Normal 3.9-4.9 [facility] Comment on above: Order Comment: Ruth caldera Type: BLOOD SPECIMENOrdering Facility: [facility] Address: [address] [place] [address] Performed By: #### 2 4323-8, 3040-3, 33542-5 ####[facility] LABORATORYCLIA [id number] [facility] [place] [address] [place] ALP [Catalytic activity/Vol] 50 U/L Normal 34-123 [facility] Comment on above: Order Comment: Ruth caldera Type: BLOOD SPECIMENOrdering Facility: [facility] Address: [address] [place] [address] Performed By: #### 2 4323-8, 3040-3, ####[facility] LABORATORYCLIA [id number] [place] [address] [place] ALT [Catalytic activity/Vol] 108 U/L High 7-38 [facility] Comment on above: Order Comment: Speci men Type: BLOOD SPECIMENOrdering Facility: [facility] Address: [address] [place] [address] Performed By: #### 2 4323-8, 3040-3, ####[facility] LABORATORYCLIA [id number] [place] [address] [place] Anion gap [Moles/Vol] 24 mmol/L High 8-15 [facility] Comment on above: Order Comment: Speci men Type: BLOOD SPECIMENOrdering Facility: [facility] Address: [address] [place] [address] Performed By: #### 2 4323-8, 0-3, ####[facility] LABORATORYCLIA [id number] [place] [address] [place] AST [Catalytic activity/Vol] 108 U/L High 13-35 [facility] Comment on above: Order Comment: Speci men Type: BLOOD SPECIMENOrdering Facility: [facility] Address: [address] [place] [address] Performed By: #### 2 4323-8, 0-3, ####[facility] LABORATORYCLIA [id number] [facility] [place] [address] [place] Bilirubin [Mass/Vol] 0.5 mg/dL Normal 0.2-1.3 [facility] Comment on above: Order Comment: Speci men Type: BLOOD SPECIMENOrdering Facility: [facility] Address: [address] [place] [address] Performed By: #### 2 4323-8, 3040-3, ####[facility] LABORATORYCLIA [id number] [place] [address] [place] Calcium [Mass/Vol] 9.5 mg/dL Normal 8.5-10.2 [facility] Comment on above: Order Comment: Speci men Type: BLOOD SPECIMENOrdering Facility: [facility] Address: [address] [place], [place] [address] [id number] Performed By: #### 2 4323-8, 3040-3, ####[facility] LABORATORYCLIA [id number] [place] [address] [place] Chloride [Moles/Vol] 93 mmol/L Low 98-107 [facility] Comment on above: Order Comment: Speci men Type: BLOOD SPECIMENOrdering Facility: [facility] Address: [address] [place], [place] [address] Performed By: #### 2 4323-8, 3, ####[facility] LABORATORYCLIA [id number] [place] [address] [place] CO2 [Moles/Vol] 18 mmol/L Low 22-30 [facility] Comment on above: Order Comment: Speci men Type: BLOOD SPECIMENOrdering Facility: [facility] Address: [address] [place] [address] Performed By: #### 2 4323-8, 3, ####[facility] LABORATORYCLIA [id number] [place] [address] [place] Creatinine [Mass/Vol] 0.70 mg/dL Normal 0.58-0.96 [facility] Comment on above: Order Comment: Speci men Type: BLOOD SPECIMENOrdering Facility: [facility] Address: [address] [place] [address] Performed By: #### 2 4323-8, 03, ####[facility] LABORATORYCLIA [id number] [place] [address] [place] Creatinine and Glomerular filtration rate.predicted panel (S/P/Bld) 104 mL/min/1.73m??? Normal >=60 [facility] Comment on above: Order Comment: Ruth caldera Type: BLOOD SPECIMENOrdering Facility: [facility] Address: [address] [place] [address] Result Comment: Luisa mated Glomerular Filtration Rate [...] GFR. Performed By: #### 2 4323-8, 3040-3, ####[facility] LABORATORYCLIA [id number] [facility] [address] [place] Glucose [Mass/Vol] 125 mg/dL High 74-99 [facility] Comment on above: Order Comment: Ruth caldera Type: BLOOD SPECIMENOrdering Facility: [facility] Address: [address] [place] [address] Result Comment: The [place] [employer] (ADA) provides guidance for cutoff [...] Standards of Medical Care in Diabetes 2016, [place] [employer]. Diabetes Care. 2016.39(Suppl 1). Performed By: #### 2 4323-8, 3040-3, 48677-0 ####[facility] LABORATORYCLIA [id number] [facility] [place] [address] [place] Potassium [Moles/Vol] 3.8 mmol/L Normal 3.7-5.1 [facility] Comment on above: Order Comment: Ruth caldera Type: BLOOD SPECIMENOrdering Facility: [facility] Address: [address] [place] [address] Performed By: #### 2 4323-8, 3040-3, ####[facility] LABORATORYCLIA [id number] [place] [address] [place] Protein [Mass/Vol] 7.1 g/dL Normal 6.3-8.0 [facility] Comment on above: Order Comment: Speci men Type: BLOOD SPECIMENOrdering Facility: [facility] Address: [address] [place] [address] Performed By: #### 2 4323-8, 3040-3, ####[facility]OSPITALIA [id number] [place] [address] [place] Sodium [Moles/Vol] 135 mmol/L Low 136-144 [facility] Comment on above: Order Comment: Speci men Type: BLOOD SPECIMENOrdering Facility: [facility] Address: [address] [place] [address] Performed By: #### 2 4323-8, 3040-3, ####[facility]PITALIA [id number] [place] [address] [place] Urea nitrogen [Mass/Vol] 12 mg/dL Normal 7-21 [facility] Comment on above: Order Comment: Speci men Type: BLOOD SPECIMENOrdering Facility: [facility] Address: [facility] [place] [address] Performed By: #### 2 4323-8, 3040-3, ####[facility] HOSPITALIA [id number] [place] [address] [place] ECG COMPLETEon 10-15-2023 ECG COMPLETE Ventricular Rate : 6 3 BPM Atrial Rate : 63 BPM P-R Interval : 148 ms QRS Duration : 85 ms Q-T Interval : 437 ms QTC Calculation(Bazett) : 448 ms Calculated P Mereta : 55 degrees Calculated R Mereta : 53 degrees Calculated T Mereta : [address] elev, probable normal early repol pattern Normal ECG 1015 NSR NO STEMI Confirmed by MD DANIELLEEVETTE ([id number]), associate editor THA REHMAN ([id number]) on 10/16/2023 9:26:00 AM NAME : EMELY CLEVELAND PID : [id number] : 1970 Gender : Female Race : ORD : [id number] Procedure Date : Oct 15 2023 10:14:03 Edit Date : Oct 16 2023 09:26:07 Diagnosis: Sinus rhythm ST elev, probable normal early repol pattern Normal ECG 1015 NSR NO STEMI Confirmed by MD SANTOS CHRISTOPHER ([id number]), associate editor THA REHMAN ([id number]) on 10/16/2023 9:26:00 AM Test Reason : Chest Pain Location : 302 : ED AVED-16 Overread By : MD SANTOS CHRISTOPHER Edited By : THA REHMAN Referred By : , Acquired by : [id number], [facility] ED NOTEon 10-15-2023 ED NOTE HNO ID: [id number] Author: ALICE ALEGRIA RN Service: ? Author Type: Registered Nurse Type: ED Notes Filed: 10/15/2023 17:54 Note Text: Report called to MASSIMO [facility] at [facility] ED NOTE HNO ID: [id number] Author: ALICE ALEGRIA RN Service: ? Author Type: Registered Nurse Type: ED Notes Filed: 10/15/2023 15:10 Note Text: [facility] ED NOTE HNO ID: [id number] Author: ALICE ALEGRIA RN Service: ? Author Type: Registered Nurse Type: ED Notes Filed: 10/15/2023 12:20 Note Text: Patient unable to provide a urine sample at this time. [facility] ED NOTE HNO ID: [id number] Author: ALICE ALEGRIA RN Service: ? Author Type: Registered Nurse Type: ED Notes Filed: 10/15/2023 11:24 Note Text: Patient's daughter at bedside. Krystina DIAZ updating family and patient. Pt states she is interested in detox after medical admission. [facility] ED NOTE HNO ID: [id number] Author: ALICE ALEGRIA RN Service: ? Author Type: Registered Nurse Type: ED Notes Filed: 10/15/2023 10:52 Note Text: Pt cleaned up and placed in clean gown and brief. Pt placed on ecologist technician. Seizure pads in place. HOB elevated 45 degrees and suction at bedside. [facility] ED NOTE HNO ID: [id number] Author: ALICE ALEGRIA, MASSIMO Service: ? Author [...] drink was around 8 pm last night. [facility] ED NOTE HNO ID: [id number] Author: ALICE ALEGRIA RN Service: ? Author Type: Registered Nurse Type: ED Notes Filed: 10/15/2023 10:51 Note Text: Pt vomiting on arrival and appears diaphoretic and pale. Verbal order for Zofran and 1L NS bolus obtained from EMILY Flaherty. [facility] ED NOTE HNO ID: [id number] Author: CINDY ORTEZ RN Service: ? Author Type: Registered Nurse Type: ED Notes Filed: 10/15/2023 10:00 Note Text: Bed: ED-16 Expected date: Expected time: Means of arrival: Comments: CAROL [facility] ED PROV NOTEon 10-15-2023 ED PROV NOTE HNO ID: [id number] Author: EVETTE SANTOS MD Service: Emergency Medicine [...] Use Authoriz (more content not included)... Normal [facility] Ethanol [facility] 06-27-2 024 Ethanol [Mass/Vol] 117 mg/dL High <11 [facility] [facility] Comment on above: Order Comment: Speci men Type: BLOOD SPECIMENOrdering Facility: [facility] Address: [address] [place] [address] Result Comment: Valu es > 80 mg/dL may indicate intoxication Performed By: #### 5 643-2 ####[facility]ORATORYCLIA [id number] [place] [address] [place] FLUABV+SARS-CoV-2+RSV Pnl Re sp EMILIANO+probeon 10-15-2023 FLUABV+SARS-CoV-2+RS V Pnl Resp EMILIANO+probe COVID 19 RESULT: Not detected The method used is RT-PCR or an equivalent NAAT method. Reference Range(the expected result in uninfected individuals): Not detected INFLUENZA A PCR: Not detected INFLUENZA B PCR: Not detected RSV PCR: Not detected Normal [facility] Comment on above: Performed By: #### 9 5941-1 #### [facility] CLIA [id number] [address] [place] [address] [place] HIGH SENSITIVITY TROPONIN T (INITIAL)on 10-15-2023 Troponin T.cardiac High sensitivity method [Mass/Vol] 12 ng/L High <12 [facility] Comment on above: Order Comment: Speci men Type: BLOOD SPECIMENOrdering Facility: [facility] Address: [address] [place] [address] Performed By: #### L [id number] ####[facility]ORATORYCLIA [id number] [place] [address] [place] HIGH SENSITIVITY TROPONIN T (SECOND)on 10-15-2023 Troponin T.cardiac High sensitivity method [Mass/Vol] 13 ng/L High <12 [facility] Comment on above: Order Comment: Speci men Type: BLOOD SPECIMENOrdering Facility: [facility] Address: [address] [place] [address] Performed By: #### L [id number] ####[facility]ORATORYCLIA [id number] [place] [address] [place] HIGH SENSITIVITY TROPONIN T (THIRD) 3 HRS AFTER INITIALon 10-15-2023 Troponin T.cardiac High sensitivity method [Mass/Vol] 13 ng/L High <12 [facility] Comment on above: Order Comment: Speci men Type: BLOOD SPECIMENOrdering Facility: [facility] Address: [address] [place] [address] Performed By: #### L [id number] ####[facility] [id number] [place] [address] [place] Lipase SerPl-cCncon 10-15-19 24 Lipase [Catalytic activity/Vol] 88 U/L High 16-61 [facility] Comment on above: Order Comment: Speci men Type: BLOOD SPECIMENOrdering Facility: [facility] Address: [address] [place] [address] Performed By: #### 2 4323-8, 3040-3, 80145-3 ####[facility] [id number] [place] [id number] [place] Magnesium SerPl-mCncon 10-14 Magnesium [Mass/Vol] 1.9 mg/dL Normal 1.7-2.3 [facility] Comment on above: Order Comment: Speci men Type: BLOOD SPECIMENOrdering Facility: [facility] Address: [address] [place] [address] Performed By: #### 2 4323-8, 3040-3, ####[facility] [id number] [place] [address] [place] SEPSIS LACTATE W/ REFLEX (IN ITIAL)on 10-15-2023 Lactate [Moles/Vol] 5.9 mmol/L High 0.0-2.0 [facility] Comment on above: Order Comment: Speci men Type: BLOOD SPECIMENOrdering Facility: [facility] Address: [address] [place] [address] Performed By: #### S LACTR ####[facility] [id number] [place] [address] [place] SEPSIS LACTATE W/ REFLEX (SE COND)on 10-15-2023 Lactate [Moles/Vol] 4.7 mmol/L High 0.0-2.0 [facility] Comment on above: Order Comment: Speci men Type: BLOOD SPECIMENOrdering Facility: [facility] Address: [address] [place] [address] Performed By: #### S LACT2 ####[facility] LABORATORYCLIA [id number] [facility] [place] [address] [place] XR CHEST 1V [...] bony abnormalities. IMPRESSION: NO ACUTE CARDIOPULMONARY PROCESS. Information Security Architect: ELAINE Transcribe Date/Time: Oct 15 2023 10:41A Dictated by : LYNN FORMAN MD This examination was interpreted and the report reviewed and electronically signed by: LYNN FORMAN MD on Oct 15 2023 10:41AM EST [id number] Normal [facility] CNOVon 10-05-2023 CNOV Office Visit (CHANTELLONGCarter ) -------- EMELY CLEVELAND ([id number]) 1970 F Date Time Provider Department 10/05/23 3:30 PM O'MANNING, KELLY L AVONGY During your visit today, we recorded the following information about you: Pulse Blood pressure Weight Height 102/minute 104/76 77 kg 1.702 m Last Period 03/06/23 Kelly Ames APRN.CATARACT LENS GENERATOR 10/05/2023 4:03 PM Signed S: This is [...] exam grossly normal EXTREMITIES: normal ASSESSMENT: Normal COURTESY CLERK exam Breast cancer screening PLAN: Pap done Encouraged/reviewed BSE Mammogram ordered Recommended 7618-8277 mg calcium intake with Vit D and [...] salmon and sardines and vegetables, such as Japanese cabbage, kale, and broccoli. Foods fortified with [...] acid, calcium carbonate is found in some ozoj-elr-acrnpal antacid products, such as Tums? and Rolaids?. Depending on its strength, each chewable pill or softchew provides 200 to 400 mg of elemental calcium. The percentage of calcium absorbed depends on the total amount of elemental calci (more content not included)... Normal [facility] HIGH RISK HUMAN PAPILLOMA NERY (HPV), PCR FOR DETECTION AND GENOTYPINGon 10-05-2023 HPV 16 Ag Ql (Unsp spec) Not detected Normal Not detected [facility] Comment on above: Order Comment: Speci men Type: FLUID SPECIMEN [facility] Address: [address] [place] [address] Performed By: #### L [id number], HPVHRT #### [facility] CLIA [id number] [address] [place] [address] [place] HPV 18 Ag Ql (Unsp spec) Not detected Normal Not detected [facility] Comment on above: Order Comment: Speci men Type: FLUID SPECIMEN [facility] Address: [address] [place] [address] Performed By: #### L [id number], HPVHRT #### [facility] CLIA [id number] [address] [place] [address] [place] HPV 31+33+35+39+45+51+52 +56+58+59+66+68 DNA EMILIANO+probe Ql (Cvx) Not detected Normal Not detected [facility] Comment on above: Order Comment: Speci men Type: FLUID SPECIMEN [facility] Address: [address] [place] [address] Result Comment: High Risk HPV Other Type includes HPV types 31, 33, 35, 39, 45, 51, 52, 56, 58, 59, 66 and 68. Performed By: #### L [id number], HPVHRT #### [facility] CLIA [id number] [address] [place] [address] [place] PAP TESTon 10-05-2023 ADEQUACY Satisfactory for interpretation. Normal [facility] Comment on above: Order Comment: Speci men Type: FLUID SPECIMEN [facility] Address: [address] [place] [address] Performed By: #### L [id number], HPVHRT #### [facility] CLIA [id number] [address] [place] [address] [place] CASE REPORT Normal [facility] Comment on above: Order Comment: Speci men Type: FLUID SPECIMEN [facility] Address: [address] [place] [address] Result Comment: Gyne cologic Cytology Report Case: [id number] Authorizing Provider: Kelly Ames, Collected: 10/05/2023 04:07 PM LABORER.CATARACT LENS GENERATOR Ordering Location: Obstetrics/Gynecology Received: 10/06/2023 05:22 AM First Screen: Gmitro, Kam, CT, ASCP Rescreen: Carmen Loyd Specimen: Pap Test, ThinPrep, Cervix Performed By: #### L [id number], HPVHRT #### [facility] CLIA [id number] [address] [place] [address] [place] CLINICAL HISTORY, CYTOLOGY, COURTESY CLERK Routine Exam Normal [facility] Comment on above: Order Comment: Speci men Type: FLUID SPECIMEN [facility] Address: [address] [place] [address] Result Comment: Post Menopausal Performed By: #### L [id number], HPVHRT #### [facility] CLIA [id number] [address] [place] [address] [place] FINAL PERFORMING LAB Normal [facility] Comment on above: Order Comment: Speci men Type: FLUID SPECIMEN [facility] Address: [address] [place] [address] Result Comment: Tech nical component, heavy mobile equipment repairer screening performed at [facility], [address] [place], [place] [id number] CLIA# [id number] Diagnostic interpretation performed at [facility], [address] [place], [place] [id number] CLIA# [id number] Coding Coordinator: Asad Amato M.D. Performed By: #### L [id number], HPVHRT #### [facility] CLIA [id number] [address] [place] [address] [place] HPV REFLEX Yes HPV Normal [facility] Comment on above: Order Comment: Speci men Type: FLUID SPECIMEN [facility] Address: [address] [place] [address] Performed By: #### L [id number], HPVHRT #### [facility] CLIA [id number] [address] [place] [address] [place] INTERPRETATION, CYTOLOGY, COURTESY CLERK Normal [facility] Comment on above: Order Comment: Speci men Type: FLUID SPECIMEN [facility] Address: [address] [place] [address] Result Comment: Nega tive for intraepithelial lesion or malignancy. Performed By: #### L [id number], HPVHRT #### [facility] CLIA [id number] [address] [place] [address] [place] PAP DISCLAIMER COMMENT The Pap Smear is a screening test for cervical cancer. False negative results occur with all screening tests, emphasizing the need for rescreening at recommended intervals, and clinical correlation. Normal [facility] Comment on above: Order Comment: Speci men Type: FLUID SPECIMEN [facility] Address: [address] [place] [address] Performed By: #### L [id number], HPVHRT #### [facility] CLIA [id number] [address] [place] [address] [place] PAP ORCHARD PRUNER COMMENT This specimen has be en analyzed by the ThinPrep Imaging System, an automated imaging and review system, which assists the laboratory in evaluating cells on ThinPrep Pap tests. Following automated imaging, selected ferris from every slide are reviewed by a heavy mobile equipment repairer. Normal [facility] Comment on above: Order Comment: Speci men Type: FLUID SPECIMEN [facility] Address: [address] [place] [address] Performed By: #### L [id number], [facility] #### [facility] CLIA [id number] [address] [place] [address] [place] [address] [place] US ABDOMEN COMPLETEon 2023 US ABDOMEN COMPLETE Interpreted By: Raul Smyth, STUDY: US ABDOMEN COMPLETE; 09/26/2023 8:44 am INDICATION: 53 y/o F with Signs/Symptoms:f/u GB polyp and enlarged liver. COMPARISON: None. ACCESSION NUMBER(S): [id number] ORDERING CLINICIAN: JHOAN ROBERTO TECHNIQUE: Routine ultrasound [...] Raul Sheikh 09/28/2023 8:56 AM Dictation workstation: [id number] Normal [facility] Basic metabolic 2000 panelon 09-25-2023 Anion gap [Moles/Vol] 23 mmol/L High 10-20 [facility] Comment on above: Performed By: #### 2 4321-2 ####DIRK Krishnan ([id number])[facility] ([facility])[address] [place] [address] Calcium [Mass/Vol] 9.8 mg/dL Normal 8.6-10.6 [facility] Comment on above: Performed By: #### 2 4321-2 ####DIRK CALLE L ([id number])[facility] ([facility])[address] [place] [address] Chloride [Moles/Vol] 86 mmol/L Low 98-107 [facility] Comment on above: Performed By: #### 2 4321-2 ####DIRK CALLE L ([id number])[facility] ([facility])[address] [place] [address] CO2 [Moles/Vol] 26 mmol/L Normal 21-32 [facility] Comment on above: Performed By: #### 2 4321-2 ####DIRK CALLE L ([id number])[facility] ([facility])[address] [place] [address] Creatinine [Mass/Vol] 0.87 mg/dL Normal 0.50-1.05 [facility] Comment on above: Performed By: #### 2 4321-2 ####DIRK CALLE L (67115)[facility] ([facility])[address] [place] [address] Glomerular filtration rate/1.73 sq M.predicted 80 mL/min/1.73m*2 Normal >60 [facility] Comment on above: Result Comment: Calc ulations of estimated GFR are performed using the 2020 CKD-EPI Study Refit equation without the race variable for the IDMS-Traceable creatinine methods. https://jasn.asnjournals.org/content//ASN.6545021 988 Performed By: #### 2 4321-2 ####DIRK CALLE L (60150)[facility] ([facility])[address] [place] [address] Glucose [Mass/Vol] 100 mg/dL High 74-99 [facility] Comment on above: Performed By: #### 2 4321-2 ####DIRK Krishnan ([id number])[facility] ([facility])[address] [place] [address] Potassium [Moles/Vol] 3.7 mmol/L Normal 3.5-5.3 [facility] Comment on above: Performed By: #### 2 4321-2 ####DIRK Krishnan (66944)[facility] ([facility])[address] [place] [address] Sodium [Moles/Vol] 131 mmol/L Low 136-145 [facility] Comment on above: Performed By: #### 2 4321-2 ####DIRK Krishnan ([id number])[facility] ([facility])[address] [place] [address] Urea nitrogen [Mass/Vol] 12 mg/dL Normal 6-23 [facility] Comment on above: Performed By: #### 2 4321-2 ####DIRK Krishnan (18582)[facility] ([facility])[address] [place] [address] CBC panel Auto (Bld)on 09-24 Erythrocyte distribution width (RBC) [Ratio] 12.4 % Normal 11.5-14.5 [facility] Comment on above: Performed By: #### 5 8410-2 ####DIRK Krishnan ([id number])[facility] ([facility])[address] [place] [address] Hematocrit (Bld) [Volume fraction] 38.7 % Normal 36.0-46.0 [facility] Comment on above: Performed By: #### 5 8410-2 ####DIRK Krishnan (97264)[facility] ([facility])[address] [place] [address] Hemoglobin (Bld) [Mass/Vol] 13.1 g/dL Normal 12.0-16.0 [facility] Comment on above: Performed By: #### 5 8410-2 ####DIRK Krishnan (21437)[facility] ([facility])[address] [place] [address] MCH (RBC) [Entitic mass] 32.8 pg Normal 26.0-34.0 [facility] Comment on above: Performed By: #### 5 8410-2 ####DIRK Krishnan (56126)[facility] ([facility])[address] [place] [address] MCHC (RBC) [Mass/Vol] 33.9 g/dL Normal 32.0-36.0 [facility] Comment on above: Performed By: #### 5 8410-2 ####DIRK Krishnan (58841)[facility] ([facility])[address] [place] [address] MCV (RBC) [Entitic vol] 97 fL Normal 80-100 [facility] Comment on above: Performed By: #### 5 8410-2 ####DIRK Krishnan (91847)[facility] ([facility])[address] [place] [address] Nucleated RBC/100 WBC (Bld) [Ratio] 0.0 /100 WBCs Normal 0.0-0.0 [facility] Comment on above: Performed By: #### 5 8410-2 ####DIRK Krishnan (27564)[facility] ([facility])[address] [place] [address] Platelets (Bld) [#/Vol] 135 x10*3/uL Low 150-450 [facility] Comment on above: Performed By: #### 5 8410-2 ####DIRK Krishnan (79145)[facility] ([facility])[address] [place] [address] RBC (Bld) [#/Vol] 4.00 x10*6/uL Normal 4.00-5.20 [facility] Comment on above: Performed By: #### 5 8410-2 ####DIRK Krishnan (83700)[facility] ([facility])[address] [place] [address] WBC (Bld) [#/Vol] 3.2 x10*3/uL Low 4.4-11.3 [facility] Comment on above: Performed By: #### 5 8410-2 ####DIRK Krishnan (72739)[facility] ([facility])[address] [place] [address] Ferritinon 09-25-2023 Ferritin [Mass/Vol] 1601 ng/mL High 8-150 [facility] Comment on above: Performed By: #### 2 276-4 ####DRIK Krishnan ([id number])[facility] ([facility])[address] [place] [address] Gamma glutamyl transferaseon 09-25-2023 Gamma glutamyl transferase [Catalytic activity/Vol] 842 U/L High 5-55 [facility] Comment on above: Performed By: #### 2 324-2 ####DIRK Krishnan (82390)[facility] ([facility])[address] [place] [address] Hepatic function 2000 panelo n 09-25-2023 Albumin BCP dye [Mass/Vol] 5.0 g/dL Normal 3.4-5.0 [facility] Comment on above: Performed By: #### 2 4325-3 ####DIRK Krishnan ([id number])[facility] ([facility])[address] [place] [address] ALP [Catalytic activity/Vol] 41 U/L Normal 33-110 [facility] Comment on above: Performed By: #### 2 4325-3 ####DIRK Krishnan ([id number])[facility] ([facility])[address] [place] [address] ALT With P-5'-P [Catalytic activity/Vol] 91 U/L High 7-45 [facility] Comment on above: Result Comment: Tammy ents treated with Sulfasalazine may generate falsely decreased results for ALT. Performed By: #### 2 4325-3 ####DIRK CALLE L (24804)[facility] ([facility])[address] [place] [address] AST With P-5'-P [Catalytic activity/Vol] 101 U/L High 9-39 [facility] Comment on above: Performed By: #### 2 4325-3 ####DIRK CANALESMOTZER L (74768)[facility] ([facility])[address] [place] [address] Bilirubin [Mass/Vol] 0.9 mg/dL Normal 0.0-1.2 [facility] Comment on above: Performed By: #### 2 4325-3 ####DIRK CANALESMOTZER L (26319)[facility] ([facility])[address] [place] [address] Bilirubin.direct [Mass/Vol] 0.3 mg/dL Normal 0.0-0.3 [facility] Comment on above: Performed By: #### 2 4325-3 ####DIRK CANALESMOPUSHPA L (58378)[facility] ([facility])[address] [facility] [place] [address] Protein [Mass/Vol] 7.8 g/dL Normal 6.4-8.2 [facility] Comment on above: Performed By: #### 2 4325-3 ####DIRK CANALESMOTZER L (72146)[facility] ([facility])[address] [facility] [place] [address] [facility] 05-24-2023 [facility] HNO ID: [id number] Author: COORDINATOR, MAMMOGRAPHY, ? Service: ? Author Type: Physician Type: Letter Filed: 05/24/2023 13:52 Note Text: May 25, 2023 PID: [id number] Emely Cleveland [address] [place] [address] Dear Ms. Cleveland, We are pleased to [...] report will be kept on file at [facility] as part of your permanent medical record and are available for your continuing care. Thank you for allowing us to help in meeting your health care needs. Sincerely, Dr. Sierra Interpreting Radiologist [facility] (Normal over 40) Normal [facility] SCREENING W TOMOon 05-22 [facility] SCREENING W BRITTANI * * *Final Report* * * DATE OF EXAM: May 22 2023 3:16PM NWW [id number] - [facility] SCREENING W BRITTANI / PROCEDURE REASON: Encounter for screening mammogram for malignant neoplasm of breast * * * * Physician Interpretation * * * * RESULT: #[id number] - [facility] SCREENING W BRITTANI BILATERAL DIGITAL SCREENING MAMMOGRAM [...] 06/06/2021 mammogram, 09/27/2020 mammogram, 09/27/2020 ultrasound - [facility], and 08/17/2020 mammogram - [facility]. There are scattered areas of fibroglandular density. No significant masses, calcifications, or other findings are seen in either breast. There has been no significant interval change. IMPRESSION: NEGATIVE There is no mammographic evidence of malignancy. A 1 year screening mammogram is recommended. Fariha Sierra M.D. cp/penlillie:05/24/2023 13:52:10 Pocket Marker(s): RT Mere(R)(M), [facility] letter sent: Normal over 40 Mammogram BI-RADS: [...] Health, Family Medicine, and Medical/Surgical Oncology, the [facility] has carefully reviewed the data and reached [...] their providers when to stop screening mammograms. Information Security Architect: Yazmin Transcribe Date/Time: May 22 2023 2:43P Dictated by: FARIHA ISERRA MD This examination was interpreted and the report reviewed and electronically signed by: FARIHA SIERRA MD on May 24 2023 1:52PM EST [id number] [facility] XR HAND LEFT 3+ VIEWSon 04-21 XR HAND LEFT 3+ VIEWS Interpreted By: Jarod Ghosh, STUDY: XR HAND LEFT 3+ VIEWS; ; 05/13/2023 4:08 pm INDICATION: Signs/Symptoms:pain. ACCESSION NUMBER(S): [id number] ORDERING CLINICIAN: JAROD GHOSH FINDINGS: Repeat three views left hand demonstrate stable sclerotic callus formation at base of the 5th metacarpal fracture. No worsening alignment or fracture seen. Normal anatomic spacing is seen otherwise. No additional acute osseous abnormality noted. Overall impression interval healing proximal 5th metacarpal fracture with increased callus formation Signed by: Jarod Ghosh 05/13/2023 4:58 PM Dictation workstation: [id number] [facility] XR Hand - left 3 Viewson Interpreted By: Jarod Ghosh, STUDY: XR HAND LEFT 3+ VIEWS; ; 05/13/2023 4:08 pm INDICATION: Signs/Symptoms:pain. ACCESSION NUMBER(S): [id number] ORDERING CLINICIAN: JAROD GHOHS FINDINGS: Repeat three views left hand demonstrate stable sclerotic callus formation at base of the 5th metacarpal fracture. No worsening alignment or fracture seen. Normal anatomic spacing is seen otherwise. No additional acute osseous abnormality noted. Overall impression interval healing proximal 5th metacarpal fracture with increased callus formation Signed by: Jarod Ghosh 05/13/2023 4:58 PM Dictation workstation: [id number] Jarod Ghosh MD - 05/13/2023 Interpreted By: Jarod Ghosh, STUDY: XR HAND LEFT 3+ VIEWS; ; 05/13/2023 4:08 pm INDICATION: Signs/Symptoms:pain. ACCESSION NUMBER(S): [id number] ORDERING CLINICIAN: JAROD GHOSH FINDINGS: Repeat three views left hand demonstrate stable sclerotic callus formation at base of the 5th metacarpal fracture. No worsening alignment or fracture seen. Normal anatomic spacing is seen otherwise. No additional acute osseous abnormality noted. Overall impression interval healing proximal 5th metacarpal fracture with increased callus formation Signed by: Jarod Ghosh 05/13/2023 4:58 PM Dictation workstation: [id number] [facility] Work Phone: [facility] [facility] Work Phone: Radiology Study observation (narrative) [facility] Work Phone: XR HAND LEFT 3+ VIEWSon XR HAND LEFT 3+ VIEWS Interpreted By: Jarod Ghosh, STUDY: XR HAND LEFT 3+ VIEWS; ; 04/22/2023 3:37 pm INDICATION: Signs/Symptoms:pain. ACCESSION NUMBER(S): [id number] ORDERING CLINICIAN: JAROD GHOSH FINDINGS: Repeat left hand films demonstrate stable appearing nondisplaced proximal 5th metacarpal fracture at the level of the base. No presence for any obvious abnormality to the thumb. The remainder of the hand is unremarkable from prior films. Overall impression stable appearing acute nondisplaced proximal 5th metacarpal fracture. Signed by: Jarod Ghosh 04/23/2023 8:16 AM Dictation workstation: [id number] [facility] XR HAND LEFT 3+ VIEWSon 03-20 XR HAND LEFT 3+ VIEWS STUDY: Left hand and wrist radiographs; 04/06/2023 at 12:45 PM. INDICATION: Left hand pain post injury. COMPARISON: None available. ACCESSION NUMBER(S): [id number], [id number] ORDERING CLINICIAN: TECHNIQUE: Three views of the [...] fifth metacarpal. Signed by Raghavendra Baltazar MD [facility] XR WRIST LEFT 3+ VIEWSon XR WRIST LEFT 3+ VIEWS STUDY: Left hand and wrist radiographs; 04/06/2023 at 12:45 PM. INDICATION: Left hand pain post injury. COMPARISON: None available. ACCESSION NUMBER(S): [id number], [id number] ORDERING CLINICIAN: TECHNIQUE: Three views of the [...] fifth metacarpal. Signed by Raghavendra Baltazar MD [facility] Acute hepatitis 2000 panel ( S)on 03-14-2023 HAV IgM Ql (S) Non-Reactive Normal Nonreactive [facility] Comment on above: Result Comment: Biot in interference may cause falsely decreased results. Patients taking a Biotin dose of up to 5 mg/day should refrain from taking Biotin for 24 hours before sample collection. Providers may contact their local laboratory for further information. Performed By: #### 2 4363-4 #### DIRK Krishnan ([id number]) [facility] ([facility]) [address] [place] [address] HBV core IgM Ql (S) Non-Reactive Normal Nonreactive [facility] Comment on above: Result Comment: Resu lts from patients taking biotin supplements or receiving high-dose biotin therapy should be interpreted with caution due to possible interference with this test. Providers may contact their local laboratory for further information. Performed By: #### 2 4363-4 #### DIRK Krishnan ([id number]) [facility] ([facility]) [address] [place] [address] HBV surface Ag IA Ql Non-Reactive Normal Nonreactive [facility] Comment on above: Result Comment: Biot in interference may cause falsely decreased results. Patients taking a Biotin dose of up to 5 mg/day should refrain from taking Biotin for 24 hours before sample collection. Providers may contact their local laboratory for further information. Performed By: #### 2 4363-4 #### DIRK Krishnan ([id number]) [facility] ([facility]) [address] [place] [address] HCV Ab Ql (S) Non-Reactive Normal Nonreactive [facility] Comment on above: Result Comment: Resu lts from patients taking biotin supplements or receiving high-dose biotin therapy should be interpreted with caution due to possible interference with this test. Providers may contact their local laboratory for further information. Performed By: #### 2 4363-4 #### DIRK Krishnan ([id number]) [facility] ([facility]) [address] [place] [address] Bilirubin.glucuronidated+Darek irubin.albumin boundon 03-14-2023 Bilirubin.direct [Mass/Vol] 0.2 mg/dL Normal 0.0-0.3 [facility] Comment on above: Performed By: #### 1 968-7 #### JENNIFER LEWSI ([id number]) [facility] ([facility]) [address] [place] [address] Comprehensive metabolic 2000 panelon 03-14-2023 Albumin BCP dye [Mass/Vol] 4.3 g/dL Normal 3.4-5.0 [facility] Comment on above: Performed By: #### 2 4323-8 #### JENNIFER LEWIS ([id number]) [facility] ([facility]) [address] [place] [address] 37126 ALP [Catalytic activity/Vol] 38 U/L Normal 33-110 [facility] Comment on above: Performed By: #### 2 4323-8 #### JENNIFER LEWIS ([id number]) [facility] ([facility]) [address] [place] [address] 36522 ALT With P-5'-P [Catalytic activity/Vol] 122 U/L High 7-45 [facility] Comment on above: Result Comment: Tammy ents treated with Sulfasalazine may generate falsely decreased results for ALT. Performed By: #### 2 4323-8 #### JENNIFER LEWIS ([id number]) [facility] ([facility]) [address] [place] [address] 56929 Anion gap [Moles/Vol] 22 mmol/L High 10-20 [facility] Comment on above: Performed By: #### 2 4323-8 #### JENNIFER LEWIS ([id number]) [facility] ([facility]) [address] [place] [address] 24235 AST With P-5'-P [Catalytic activity/Vol] 157 U/L High 9-39 [facility] Comment on above: Performed By: #### 2 4323-8 #### JENNIFER LEWIS ([id number]) [facility] ([facility]) [address] [place] [address] 24485 Bilirubin [Mass/Vol] 0.8 mg/dL Normal 0.0-1.2 [facility] Comment on above: Performed By: #### 2 4323-8 #### JENNIFER LEWIS ([id number]) [facility] ([facility]) [address] [place] [address] 14620 Calcium [Mass/Vol] 9.6 mg/dL Normal 8.6-10.3 [facility] Comment on above: Performed By: #### 2 4323-8 #### JENNIFER LEWIS ([id number]) [facility] ([facility]) [address] [place] [address] 77079 Chloride [Moles/Vol] 92 mmol/L Low 98-107 [facility] Comment on above: Performed By: #### 2 4323-8 #### JENNIFER LEWIS ([id number]) [facility] ([facility]) [address] [place] [address] CO2 [Moles/Vol] 24 mmol/L Normal 21-32 [facility] Comment on above: Performed By: #### 2 4323-8 #### JENNIFER LEWIS ([id number]) [facility] ([facility]) [address] [place] [address] Creatinine [Mass/Vol] 1.06 mg/dL High 0.50-1.05 [facility] Comment on above: Performed By: #### 2 4323-8 #### JENNIFER LEWIS ([id number]) [facility] ([facility]) [address] [place] [address] GFR/1.73 sq M.predicted MDRD (S/P/Bld) [Vol rate/Area] 63 mL/min/1.73m*2 Normal >60 [facility] Comment on above: Result Comment: Calc ulations of estimated GFR are performed using the 2020 CKD-EPI Study Refit equation without the race variable for the IDMS-Traceable creatinine methods. https://jasn.asnjournals.org/content//ASN.6741912 988 Performed By: #### 2 4323-8 #### JENNIFER LEWIS ([id number]) [facility] ([facility]) [address] [place] [address] Glucose [Mass/Vol] 76 mg/dL Normal 74-99 [facility] Comment on above: Performed By: #### 2 4323-8 #### JENNIFER LEWIS ([id number]) [facility] ([facility]) [address] [place] [address] Potassium [Moles/Vol] 3.8 mmol/L Normal 3.5-5.3 [facility] Comment on above: Performed By: #### 2 4323-8 #### JENNIFER LEWIS ([id number]) [facility] ([facility]) [address] [place] [address] 48998 Protein [Mass/Vol] 7.3 g/dL Normal 6.4-8.2 [facility] Comment on above: Performed By: #### 2 4323-8 #### JENNIFER LEWIS ([id number]) [facility] ([facility]) [address] [place] [address] 93157 Sodium [Moles/Vol] 134 mmol/L Low 136-145 [facility] Comment on above: Performed By: #### 2 4323-8 #### JENNIFER LEWIS ([id number]) [facility] ([facility]) [address] [place] [address] 97163 Urea nitrogen [Mass/Vol] 15 mg/dL Normal 6-23 [facility] Comment on above: Performed By: #### 2 4323-8 #### JENNIFER LEWIS ([id number]) [facility] ([facility]) [address] [place] [address] 70462 Ferritinon 03-14-2023 Ferritin [Mass/Vol] 544 ng/mL High 8-150 [facility] Comment on above: Performed By: #### 2 276-4 #### DIRK Krishnan ([id number]) [facility] ([facility]) [address] [place] [address] Gamma glutamyl transferaseon 03-14-2023 Gamma glutamyl transferase [Catalytic activity/Vol] 228 U/L High 5-55 [facility] Comment on above: Performed By: #### 2 324-2 #### JENNIFER LEWIS ([id number]) [facility] ([facility]) [address] [place] [address] 27294 HbA1c (Bld) [Mass fraction]o n 03-14-2023 Average glucose Estimated from glycated hemoglobin (Bld) [Mass/Vol] 111 mg/dL Normal Not Established [facility] Comment on above: Order Comment: Diagn osis of Diabetes-Adults Non-Diabetic: < or = 5.6% Increased risk for developing diabetes: 5.7-6.4% Diagnostic of diabetes: > or = 6.5% Monitoring of Diabetes Age (y)....................... Therapeutic Goal (%) Adults: >18.........................<7.0 Pediatrics: 13-18...................<7.5 Pediatrics: 7-12....................<8.0 Pediatrics: 0-6..................... 7.5-8.5 [place] [employer]. Diabetes Care 33(S1), Apr 2009 Performed By: #### 4 548-4 #### DIRK Krishnan ([id number]) [facility] ([facility]) [address] [place] [address] Hemoglobin A1c/Hemoglobin.to ange 03-14-2023 HbA1c (Bld) [Mass fraction] 5.5 % Normal see below [facility] Comment on above: Order Comment: Diagn osis of Diabetes-Adults Non-Diabetic: < or = 5.6% Increased risk for developing diabetes: 5.7-6.4% Diagnostic of diabetes: > or = 6.5% Monitoring of Diabetes Age (y)....................... Therapeutic Goal (%) Adults: >18.........................<7.0 Pediatrics: 13-18...................<7.5 Pediatrics: 7-12....................<8.0 Pediatrics: 0-6..................... 7.5-8.5 [place] [employer]. Diabetes Care 33(S1), Apr 2009 Performed By: #### 4 548-4 #### DIRK Krishnan ([id number]) [facility] ([facility]) [address] [place] [id number] Lipid 1996 panelon 3 Cholesterol [Mass/Vol] 313 mg/dL High 0-199 [facility] Comment on above: Result Comment: Age [...] 128(S5).Adult guidelines reference: NCEP ATPIII Guidelines,LISSA 2001, 258:9376-97 Venipuncture immediately after or during the administration of Metamizole may lead to falsely low results. Testing should be performed immediately prior to Metamizole dosing. Performed By: #### 2 4331-1 #### JENNIFER LEWIS ([id number]) [facility] ([facility]) [address] [place] [address] Cholesterol in HDL [Mass/Vol] 121.4 mg/dL Normal [facility] Comment on above: Result Comment: Age Very Low Low Normal High 0-19 Y < 35 < 40 40-45 ---- 20-24 Y ---- < 40 >45 ---- >24 Y ---- < 40 40-60 >60 Performed By: #### 2 4331-1 #### JENNIFER LEWIS ([id number]) [facility] ([facility]) [address] [place] [address] Cholesterol in LDL [Mass/Vol] 174 mg/dL High <=99 [facility] Comment on above: Result Comment: Near Borderline AGE Desirable Optimal High High Very High 0-19 Y 0 - 109 --- 110-129 >/= 130 ---- 20-24 Y 0 - 119 --- 120-159 >/= 160 ---- >24 Y 0 - 99 100-129 130-159 160-189 >/=190 Performed By: #### 2 4331-1 #### JENNIFER LEWIS ([id number]) [facility] ([facility]) [address] [place] [address] 78982 Cholesterol in VLDL [Mass/Vol] 18 mg/dL Normal 0-40 [facility] Comment on above: Performed By: #### 2 4331-1 #### JENNIFER LEWIS ([id number]) [facility] ([facility]) [address] [place] [address] 17909 CHOLESTEROL/HDL RATIO 2.6 Normal [facility] Comment on above: Result Comment: Ref Values Desirable < 3.4 High Risk > 5.0 Performed By: #### 2 4331-1 #### JENNIFER LEWIS ([id number]) [facility] ([facility]) [address] [place] [address] 11038 NON HDL CHOLESTEROL 192 mg/dL High 0-149 [facility] Comment on above: Result Comment: Age Desirable Borderline High High Very High 0-19 Y 0 - 119 120 - 144 >/= 145 >/= 160 20-24 Y 0 - 149 150 - 189 >/= 190 ---- >24 Y 30 mg/dL above LDL Cholesterol goal Performed By: #### 2 4331-1 #### JENNIFER LEWIS ([id number]) [facility] ([facility]) [address] [place] [address] 18723 Triglyceride [Mass/Vol] 90 mg/dL Normal 0-149 [facility] Comment on above: Result Comment: Age [...] By: #### 2 4331-1 #### JENNIFER LEWIS ([id number]) [facility] ([facility]) [address] [place] [address] TSH WITH REFLEX TO FREE T4 I F ABNORMALon 03-14-2023 TSH Qn 3.28 m[IU]/L Normal 0.44-3.98 [facility] Comment on above: Order Comment: TSH t esting is performed using different testing methodology at [facility] than at other [facility]. Direct result comparisons should only be made within the same method. Performed By: #### T HYDS #### JENNIFER LEWIS ([id number]) [facility] ([facility]) [address] [place], [place] [id number] Surgical pathology studyOrde red By: Landon Dumont on 03-04-2023 Laboratory comment [employer] (Report) o3fefGOpDGMng9mlPPUsdQYq ZzEwMzNcZnRuYmpcdWMxIHtc hjKdGPujx2GiW6RvHuQiHSnb bnNpXGRlZmxhbmcxMDMzXGZ0 eoIuULXtKMcqLCDjPJpiOb8q tQTaeUdkDzDhDGHdj3jssmCI SNquMIUTNMp4x0doJKZzFbV3 wJAhSHzzT1sdqrQcjCKjG9Ly c1ViMRj5qU31IQVscU8ueKGp QMnsusUwJpZ0ILclQAXnWfU0 KJCnbNEmAWTzH8qpXWNaFHzy BJExMFojvRWsGJQ7uFwwu8H0 bGVzaGVldHtcZjBcZnMyMiBO o6SxBPx6rSerJ4SqAYWfNyL6 bHQgUGFyYWdyYXBoIEZvbnQ7 hM37PTaebjJ9rURle9Neo80u i442cZ0huMGgKZE5QTWnAMFj hACrVOChQXT2RSQvgYIiD2lv KtFtiEEoG5EfTiHqbPPrW3Wh AqQvvRIpF7BaCcQsyFIqZTKo xLL3FNyyc607WXZ5JmRxSG5w L0Hjs6Y7iM4gwAAeGILrnZTn IiPoNJGmgy5pfIFjHDbal7Jx MQX6uzZ3oBKisIVoAEAbOM32 Ysoyb7YbVwxnKKM1LCFkrmTj q2Lkr3xkXhZlqjVxO7sjD0Pu LLUkQOPoBXCvZkRqrtPcu4Rx x4ZuhVTsrYu3y1kxFJIcLKIu qRayf1ksFAQ5FLXuC3V3lZIk u3mrRGfoNBDcnGJ9bjX8CSif EOPfqcW4ecO8YQphEOHrvME1 keC4PIhwNMJwItJ6zvS3HQrt XIOsNLC4MaAcTOOtw7Wltkcl FmTtv6UtyAZhOPyxC04jt277 OWYkicYxV4slsRZtkcsuiMFb cpaqPPbkocW4VAGtVDMxQCdw XGYxXGZzMjBcbGFuZzEwMzNc aGljaFxmMVxkYmNoXGYxXGxv U8vnTtLpPzCbWWUSlVF6gLNm p8iuuwD6vYEfSD9jEUHxsVIj xdJrf4X3GHZ7pPGmuB8fxWMu CFCfnKUppfErmq68lJXztWG5 AWJvPODtxCHicM9qEINxWJJX dR5egNXSayVocuPnUEWzoTzh bv7WrQSvdg1ggBThD3VjdFud aWVzIHRoYXQgdGhleSBoYXZl ZRTzwvbnz8JfKCEaeVGiY1Cf UN3xNWVlrw65 [facility] Work Phone: Pathology report Cancer Narrative Surgical Pathology Case: [id number] Authorizing Provider: Milton Farrell MD Collected: 02/23/2023 1158 Ordering Location: [facility] Received: 02/24/2023 1119 OR Pathologist: Landon Dumont MD Specimen: COLON - ASCENDING POLYP, ascending colon polyps X 2 [facility] Work Phone: Pathology report final diagnosis Narrative i0xwdVQcZOTbdZScTUGnSMvs clPmVJLcfRFzL4KqcjauUEqz LJ9yCI6klWbyeXGtpKHhUPUq ZiDac1qco263pPFnb6ulMQUI TVlvUMGBRZs8xEmcF11ro1S4 JqkmT92mfNUfLCH8MKGpKJEs tSNrTGIjOXH6XWWstAAmW0hd GERkHE7qqliqXPlfLSbmPEDz qQP6MOMdeKBhA4UvDWPhRTao GVEaezl6UwXwEh8riTOheTju MFxwYXJkXHBsYWluXGZzMjAg ZM4tMSPhT8LoQHbwUgRtt2ox smBdi5i5cET9ECR7JDSkydJO wpSsuJHoqHJyn2ZbkBJxnVts crOuSVFpt45qGpqmTCG3 [facility] Work Phone: Pathology report gross observation Narrative s8zhySBzGSLznMSNMJT5FDBr IN9maEhpgYx9oNpbCQTlpwD5 zWTeMLwgx1vfQVK0f6ajvdXB TxqbTNOoMB0iJUkuWNKhRW8m ZmUwXGRlZmYxXHBhcGVydzEy YlEeENIquCKbqUW6OGIrDS2u wndnJVcrNAtwFJXntaH8ESCi dVGaM6YeKWYoTJ2gkidzGLS5 VJAXHxfwPg3svCOwiLqeSkIn ZlNeUGVwSBLyLRQrxAmxC3Bf d5HwJVp7nZ0APtuuPYE9BNHG MjcqBcjnfHtur6JqcFDrLZIw IFxcaWQgNTEwMDAgXFxkYiBP OhEpXlB2UMc6SST7FlE2CNp9 XCKABULaBwFgLem6DUM7PMq9 TFJpNZ6rTKeyoUWdTUlrBftg KIftF948ZOadDNUjA7CbX6Nn XFxzZyBcXGlkIDUxMDAyIFxc XGQfZ1NZBAPfLYH1KUFlSYDm CLd5AYviN3CJGPKkXJK0JkAr XCY2ToY8IOc1IMAEMg0qKkl3 LxVqDxY8MCW1BxG6HRbxjhzc RLj1XONaEHppicEcZVwiWwhf THzqG85hvKGpQRJFTiqneDLf blxlcGljTmVzdERvYzEgDQpc gVSjoAWqRY6NORz0pqJpSGBl XpIgSMkoXDWjP9YgjtKrQNvn RMSgdq1guTfhHHSjDVUubDQe IHdpdGggdGhlIHBhdGllbnQn bfXwID2tMUMeIOHbn3LqvVPb kTHadZ0jOHXuIJ2cGMHnk1Ro uyRgkliltZ6gsQTfXJOvTwpl QDLjCK82kPFsiSngHQTrfEpl l0bsAZRhL63ynjBfZU3uVYGb fhlym25qfZA1uOMxnIYjdZFg y6PknH6uSFOwIVA7XJMpXxF7 RLHuVvGgmT8lOKSoSUCfzPWo eJ8aknNssrElsHJwdCA5XDHl mM5tbQ33mxJtjmVwzxBzI5Uu a3R7oHRsXPHvuiOSHpvgNJDt AHRkrDHRn2IuANGOOz2GEM8I LAHleMXFAGN8NZ7aGIfzQTLv S3VqZ5GxwyC1n1msyHips0Zh uPGkDD2gtLWaBR2NWULlmqZr UVfnhKbzvK7lHSn7 [facility] Work Phone: [facility] Work Phone: COLONOSCOPYon 02-23-2023 Colonoscopy Table formatting fro m the original result was not included. Normal [facility] No Panel Informationon 02-23 Table formatting [...] EXAM Sonia Quintero 02/23/2023 1158 Procedure Location [facility] [address] [facility] [place] [address] [facility] [address] Referring Provider Jhoan Roberto Md [address] [facility] [place] [address] [place] [address] Procedure Provider Milton Farrell MD [facility] Work Phone: Radiology Study observation (narrative) [facility] Work Phone: No Panel InformationOrdered By: Milton Farrell on 02-23-2023 [facility] Work Phone: Surgical pathology studyon 1 04-25-2022 Surgical pathology study Pathology report.total SEE COMMENT Surgical Pathology Case: [id number] Authorizing Provider: Milton Farrell MD Collected: 02/23/2023 1152 Ordering Location: [facility] Received: 02/24/2023 1119 OR Pathologist: Landon [...] is submitted in toto in one cassette. [facility] EMG & nerve conductionOrdere d By: Lynn Stark on 01-23-2023 [facility] ULTRASOUND ELASTOGRAPHY PARE NCHYMA eg ORGANon 12-24-2022 ULTRASOUND ELASTOGRAPHY PARENCHYMA eg ORGAN Patient Name: EMELY CLEVELAND STUDY: US RUQ ABDOMEN; ULTRASOUND ELASTOGRAPHY; 12/24/2022 8:20 am INDICATION: pain to right upper quadrant R10.11: Abdominal pain, RUQ (right upper quadrant); fatty liver. COMPARISON: None. ACCESSION NUMBER(S): [id number]; [id number] ORDERING CLINICIAN: CHAR JOHNSON; JHOAN ROBERTO TECHNIQUE: [...] Electronically signed by: NIKIA MARTINEZ MD Normal [facility] US RIGHT UPPER QUADRANTon US RIGHT UPPER QUADRANT Patient Name: EMELY CLEVELAND STUDY: US RUQ ABDOMEN; ULTRASOUND ELASTOGRAPHY; 12/24/2022 8:20 am INDICATION: pain to right upper quadrant R10.11: Abdominal pain, RUQ (right upper quadrant); fatty liver. COMPARISON: None. ACCESSION NUMBER(S): [id number]; [id number] ORDERING CLINICIAN: CHAR ROBERTO TECHNIQUE: Multiple images [...] Electronically signed by: NIKIA MARTINEZ MD Normal [facility] Ultrasound Right Upper Quadr cristhian 12-24-2022 Ultrasound Right Upper Quadrant Normal [facility] [employer] Work Phone: Blood Pressure Cuff Sizeon 0 12-04-2022 Fall risk assessment a) No falls within the last year [facility] Work Phone: Tobacco use status CPHS a) Yes [facility] Work Phone: Blood Pressure Cuff Size Adult [facility] Work Phone: Blood Pressure Cuff Size Yes [facility] Work Phone: Follow Up (General Surgery)o [...] Right upper quadrant pain History of Present Jjfzcuu95-dxyg-qit female with right upper quadrant pain Patient [...] in clinic is 45 minutes. Therapeutic exercise (72395): timed minutes 10 . UBE standing 2/2 supine DLS. Manual Therapy (62100): timed minutes 30 . pelvis correction MT R iliopsoas/iliacus release MT L iliopsoas/iliacus release IDN [id number] with estim STM/DTM ls paraspinals with biofreeze. Modalities: untimed minutes 10 . estim with IDN. Neuromuscular Re-education (28346): timed minutes . 'Scores and Scales' Signatures Electronically signed by : Rocael Alicea, PT; Nov 26 2022 11:19AM EST (Author) Normal [employer] PT Progress Noteon 3 PT Progress Note [...] in clinic is 45 minutes. Therapeutic exercise (66053): timed minutes 10 . UBE standing 2/2 supine DLS. Manual Therapy (41558): timed minutes 30 . MT R iliopsoas/iliacus release MT L iliopsoas/iliacus release IDN [id number] with estim STM/DTM ls paraspinals with biofreeze. Modalities: untimed minutes 10 . estim with IDN. Neuromuscular Re-education (90957): timed minutes . 'Scores and Scales' Signatures Electronically signed by : Rocael Alicea PT; Nov 19 2022 10:22AM EST (Author) Normal [employer] Office Visit (Neuro-General) on 11-17-2022 Follow-up visit Patient Discussion/Summary Follow-up after testing completed. Diagnoses/Problems Assessed Peripheral neuropathy (356.9) (G62.9) Orders Peripheral neuropathy EMG and Nerve Conduction; Status:Hold For - Scheduling; Requested for:[id number]; Electrodiagnostic Physician to determine whether Neuromuscular Ultrasound [...] Active Problems Problems 10 year risk of NE or stroke < 7.5% (V49.89) (Z91.89) 10 [...] in clinic is 45 minutes. Therapeutic exercise (67039): timed minutes 10 . UBE standing 2/2 supine DLS. Manual Therapy (10066): timed minutes 30 . MT R iliopsoas/iliacus release MT L iliopsoas/iliacus release IDN [id number] with estim STM/DTM ls paraspinals with biofreeze. Modalities: untimed minutes 10 . estim with IDN. Neuromuscular Re-education (19673): timed minutes . 'Scores and Scales' Signatures Electronically signed by : Rocael Alicea, PT; Nov 05 2022 8:59AM EST (Author) Normal [employer] PT Progress Noteon 3 PT Progress Note [...] in clinic is 50 minutes. Therapeutic exercise (10146): timed minutes 10 . UBE standing 2/2 supine DLS. Manual Therapy (58075): timed minutes 30 . MT R iliopsoas/iliacus release MT L iliopsoas/iliacus release IDN [id number] with estim STM/DTM ls paraspinals with biofreeze. Modalities: untimed minutes 10 . estim with IDN. Neuromuscular Re-education (23661): timed minutes . 'Scores and Scales' Signatures Electronically signed by : Rocael Alicea, PT; Oct 15 2022 9:45AM EST (Author) Normal [employer] PT Progress Noteon 3 PT Progress Note [...] in clinic is 50 minutes. Therapeutic exercise (25576): timed minutes 15 . UBE standing 2/2 supine DLS level 4 with biofeedback TA/core stabilization training with cuff staying at 40 mm Hg added bent knee fall out added marches added s/l kicks added s/l lower. Manual Therapy (15636): timed minutes 30 . MT R iliopsoas/iliacus release MT L iliopsoas/iliacus release IDN [id number] with estim STM/DTM ls paraspinals with biofreeze. Modalities: untimed minutes 10 . estim with IDN. Neuromuscular Re-education (63371): timed minutes . 'Scores and Scales' Signatures Electronically signed by : Rocael Alicea, PT; Oct 08 2022 10:00AM EST (Author) Normal [employer] PT Progress Noteon 3 PT Progress Note [...] in clinic is 50 minutes. Therapeutic exercise (52091): timed minutes 30 . UBE standing 2/2 supine DLS level 4 with biofeedback TA/core stabilization training with cuff staying at 40 mm Hg added bent knee fall out added marches added s/l kicks added s/l lower. Manual Therapy (54571): timed minutes 20 . MT R iliopsoas/iliacus release MT L iliopsoas/iliacus release IDN [id number] with estim STM/DTM ls paraspinals with biofreeze. Modalities: untimed minutes 10 . estim to multifidus. Neuromuscular Re-education (01892): timed minutes . 'Scores and Scales' Signatures [...] in clinic is 50 minutes. Therapeutic exercise (72003): timed minutes 30 . 4 minute w/u on arm erg supine DLS level 4 with biofeedback TA/core stabilization training with cuff staying at 40 mm Hg added bent knee fall out added marches added s/l kicks added s/l lower. Manual Therapy (61974): timed minutes 20 . MT R iliopsoas/iliacus release MT L iliopsoas/iliacus release IDN [id number] with estim. Modalities: untimed minutes 10 . estim to multifidus. Neuromuscular Re-education (91625): timed minutes . 'Scores and Scales' Signatures [...] in clinic is 45 minutes. Therapeutic exercise (43853): timed minutes 10 . UBE standing 2/2 HEP review biofeedback with core stabs prone progression Access Code: [email or web address] URL: [email or web address] Date: 06/11/2022 Prepared by: Rocael Alicea Exercises [...] weekly - 10 reps Supine Sciatic Nerve [place] - 1-2 x daily - 7 x [...] weekly - 10 reps . Manual Therapy (04394): timed minutes 30 . Iliacus/psoas release DTM gluteus medius, piriformis UPA L4L5 IDN [id number] with estim. Modalities: untimed minutes 10 . estim with IDN. 'Scores and Scales' Signatures Electronically signed by : Rocael Alicea, PT; Sep 10 2022 8:48AM EST (Author) Normal [employer] PT Progress Noteon 3 PT Progress Note [...] Compression: Right negative, Left negative Additional Testing: [place] Sign: negative Lumbar Quadrant Test: Right negative, Left negative. Treatment Time in clinic started at 700 Time in clinic ended at 800 Total time in clinic is 60 minutes. Therapeutic exercise (67400): timed minutes 25 . UBE standing 2/2 HEP review biofeedback with core stabs prone progression Access Code: [email or web address] URL: [email or web address]/ Date: 06/11/2022 Prepared by: Rocael Alicea Exercises [...] weekly - 10 reps Supine Sciatic Nerve [place] - 1-2 x daily - 7 x [...] weekly - 10 reps . Manual Therapy (72718): timed minutes 30 . Iliacus/psoas release DTM [...] in clinic is 45 minutes. Therapeutic exercise (26700): timed minutes 10 . UBE standing 2/2 HEP review biofeedback with core stabs prone progression Access Code: ANHFDEZR URL: [email or web address]/ Date: 06/11/2022 Prepared by: Rocael Alicea Exercises [...] weekly - 10 reps Supine Sciatic Nerve [place] - 1-2 x daily - 7 x [...] weekly - 10 reps . Manual Therapy (37935): timed minutes 30 . Iliacus/psoas release DTM gluteus medius, piriformis UPA L4L5 IDN [id number] with estim. Modalities: untimed minutes 10 . estim with IDN. 'Scores and Scales' Signatures Electronically signed by : Rocael Alicea, PT; Aug 20 2022 7:53AM EST (Author) Normal [employer] PT Progress Noteon PT Progress Note Therapy [...] Compression: Right negative, Left negative Additional Testing: [place] Sign: negative Lumbar Quadrant Test: Right negative, Left negative. Treatment Time in clinic started at 700 Time in clinic ended at 745 Total time in clinic is 45 minutes. Therapeutic exercise (13217): timed minutes 10 . UBE standing 2/2 HEP review biofeedback with core stabs prone progression Access Code: ANHFDEZR URL: [email or web address]/ Date: 06/11/2022 Prepared by: Rocael Alicea Exercises [...] weekly - 10 reps Supine Sciatic Nerve [place] - 1-2 x daily - 7 x [...] weekly - 10 reps . Manual Therapy (42506): timed minutes 30 . Iliacus/psoas release DTM [...] in clinic is 45 minutes. Therapeutic exercise (72081): timed minutes 10 . UBE standing 2/2 HEP review biofeedback with core stabs prone progression Access Code: ANHFDEZR URL: [email or web address]/ Date: 06/11/2022 Prepared by: Rocael Alicea Exercises [...] weekly - 10 reps Supine Sciatic Nerve [place] - 1-2 x daily - 7 x [...] weekly - 10 reps . Manual Therapy (83830): timed minutes 30 . Iliacus/psoas release DTM gluteus medius, piriformis UPA L4L5 IDN [id number] with estim. Modalities: untimed minutes 10 . estim with IDN. 'Scores and Scales' Signatures Electronically signed by : Rocael Alicea, PT; Aug 13 2022 8:49AM EST (Author) Normal [employer] PT Progress Noteon 3 PT Progress Note [...] in clinic is 45 minutes. Therapeutic exercise (09843): timed minutes 20 . UBE standing 2/2 biofeedback with core stabs prone progression Access Code: [email or web address] URL: [email or web address]/ Date: 06/11/2022 Prepared by: Rocael Alicea Exercises [...] weekly - 10 reps Supine Sciatic Nerve [place] - 1-2 x daily - 7 x [...] weekly - 10 reps . Manual Therapy (46782): timed minutes 30 . Iliacus/psoas release DTM gluteus medius, piriformis STM/DTM LS paraspinals with biofreeze UPA L4L5 Right IDN [id number] with estim. Modalities: untimed minutes 10 . estim with IDN. 'Scores and Scales' Signatures Electronically signed by : Rocael Alicea, PT; Aug 06 2022 8:54AM EST (Author) Normal [employer] PT Progress Noteon 3 PT Progress Note [...] in clinic is 55 minutes. Therapeutic exercise (03973): timed minutes 20 . UBE standing 2/2 biofeedback with core stabs Access Code: ANHFDEZR URL: [email or web address]/ Date: 06/11/2022 Prepared by: Rocael Alicea Exercises [...] weekly - 10 reps Supine Sciatic Nerve [place] - 1-2 x daily - 7 x [...] weekly - 10 reps . Manual Therapy (25263): timed minutes 30 . Iliacus/psoas release DTM gluteus medius, piriformis STM/DTM LS paraspinals with biofreeze UPA L4L5 Right IDN [id number] with estim. Modalities: untimed minutes 10 . estim with IDN. 'Scores and Scales' Signatures Electronically signed by : Rocael Alicea, PT; Jul 18 2022 10:33AM EST (Author) Normal [employer] PT Progress Noteon 3 PT Progress Note [...] in clinic is 40 minutes. Therapeutic exercise (47856): timed minutes 10 . UBE standing 2/2 biofeedback with core stabs Access Code: ANHFDEZR URL: [email or web address]/ Date: 06/11/2022 Prepared by: Rocael Alicea Exercises [...] weekly - 10 reps Supine Sciatic Nerve [place] - 1-2 x daily - 7 x [...] weekly - 10 reps . Manual Therapy (22947): timed minutes 30 . Iliacus/psoas release DTM gluteus medius, piriformis STM/DTM LS paraspinals with biofreeze UPA L4L5 Right IDN [id number] with estim. Modalities: untimed minutes 10 . estim with IDN. 'Scores and Scales' Signatures Electronically signed by : Rocael Alicea, PT; Jul 09 2022 3:24PM EST (Author) Normal [employer] PT Progress Noteon 3 PT Progress Note [...] in clinic is 50 minutes. Therapeutic exercise (14950): timed minutes 15 . UBE standing 2/2 biofeedback with core stabs Access Code: ANHFDEZR URL: [email or web address]/ Date: 06/11/2022 Prepared by: Rcoael Alicea Exercises Correct Standing Posture Correct Seated [...] weekly - 10 reps Supine Sciatic Nerve [place] - 1-2 x daily - 7 x [...] weekly - 10 reps . Manual Therapy (23444): timed minutes 30 . Iliacus/psoas release DTM gluteus medius, piriformis STM/DTM LS paraspinals with biofreeze UPA L4L5 Right IDN [id number]. 'Scores and Scales' Signatures Electronically signed by : Rocael Alicea, PT; Jul 03 2022 7:45AM EST (Author) Normal [employer] PT Progress Noteon 3 PT Progress Note [...] in clinic is 55 minutes. Therapeutic exercise (47666): timed minutes 25 . UBE standing 2/2 biofeedback with core stabs Access Code: [email or web address] URL: [email or web address]/ Date: 06/11/2022 Prepared by: Rocael Alicea Exercises [...] weekly - 10 reps Supine Sciatic Nerve [place] - 1-2 x daily - 7 x [...] weekly - 10 reps . Manual Therapy (36398): timed minutes 30 . Iliacus/psoas release DTM [...] in clinic is 60 minutes. Therapeutic exercise (84836): timed minutes 15 . UBE standing 05/22 Access Code: ANHFDEZR URL: [email or web address]/ Date: 05/26/2022 Prepared by: Rocael Alicea Exercises [...] weekly - 10 reps Supine Sciatic Nerve [place] - 1-2 x daily - 7 x [...] reps - 10 hold . Manual Therapy (15037): timed minutes 30 . Iliacus/psoas release DTM gluteus medius, piriformis STM/DTM LS paraspinals with biofreeze UPA L4L5 Right IDN [id number] bialteral Ktape LS H. 'Scores and Scales' Signatures Electronically signed by : Rocael Alicea, PT; Jun 04 2022 8:36AM EST (Author) Normal [employer] PT Progress Noteon 3 PT Progress Note [...] in clinic is 60 minutes. Therapeutic exercise (98848): timed minutes 30 . UBE standing / Access Code: [email or web address] URL: [email or web address]/ Date: 05/26/2022 Prepared by: Rocael Alicea Exercises [...] weekly - 10 reps Supine Sciatic Nerve [place] - 1-2 x daily - 7 x [...] reps - 10 hold . Manual Therapy (22595): timed minutes 30 . Iliacus/psoas release DTM gluteus medius, piriformis STM/DTM LS paraspinals with biofreeze UPA L4L5 Right IDN [id number] bialteral Ktape LS H. 'Scores and Scales' Signatures Electronically signed by : Rocael Alicea, PT; May 26 2022 1:10PM EST (Author) Normal [employer] PT Initial Evaluationon PT Initial Evaluation Therapy [...] stretches. Suggested follow up with a time study observer physiotherapist. She will f/u with her (more content not included)... Normal [employer] PT Initial Evaluationon 04-21 PT Initial Evaluation No report was sent Normal [employer] 50+ Yearson 03-28-2022 50+ Years Diagnoses/Problems Assessed [...] Services - Lab To Draw (Blood Test); Due:[id number];Ordered; For:Elevated LFTs; Ordered By:Jhoan Roberto; Elevated serum creatinine TSH WITH REFLEX TO FREE T4 IF ABNORMAL; Status:Active; Requested for:18Aug2022; Perform:Lab Services - Lab To Draw (Blood Test); Due:[id number];Ordered; For:Elevated serum creatinine; Ordered By:Jhoan Roberto; Prediabetes Basic Metabolic Panel; Status:Active; Requested for:18Aug2022; Perform:Lab Services - Lab To Draw (Blood Test); Due:[id number];Ordered; For:Prediabetes; Ordered By:Jhoan Roberto; Hemoglobin A1C; Status:Active; Requested for:18Aug2022; Perform:Lab Services - Lab To Draw (Blood Test); Due:[id number];Ordered; For:Prediabetes; Ordered By:Jhoan Roberto; Patient Discussion/Summary Covid [...] walking more. Included in this is the [employer] pal calorie counting jo-ann. Encouraged her to [...] LFTs 08/19 (more content not included)... Normal [employer] Tobacco Screening.on 022 Adult depression screening assessment No -[facility] [address] Work Phone: Fall risk assessment a) No falls within the last year [facility] [address] Work Phone: Tobacco use status CPHS b) No -[facility] [address] Work Phone: CBCon 03-27-2022 Erythrocyte distribution width (RBC) [Ratio] 12.7 % Normal 11.5 - 14.5 [facility] Comment on above: Performed By: #### C BC #### [address] [id number] Hematocrit (Bld) [Volume fraction] 40.1 % Normal 36.0 - 46.0 [facility] Comment on above: Performed By: #### C BC #### [address] [id number] Hemoglobin (Bld) [Mass/Vol] 13.7 g/dL Normal 12.0 - 16.0 [facility] Comment on above: Performed By: #### C BC #### [address] [id number] MCHC (RBC) [Mass/Vol] 34.2 g/dL Normal 32.0 - 36.0 [facility] Comment on above: Performed By: #### C BC #### [address] [id number] MCV (RBC) [Entitic vol] 97 fL Normal 80 - 100 [facility] Comment on above: Performed By: #### C BC #### [address] [id number] Platelets (Bld) [#/Vol] 191 10*3/uL Normal 150 - 450 [facility] Comment on above: Performed By: #### C BC #### [address] [id number] RBC 4.13 x10E12/L Normal 4.00 - 5.20 [facility] Comment on above: Performed By: #### C BC #### [address] [id number] WBC (Bld) [#/Vol] 7.5 10*3/uL Normal 4.4 - 11.3 [facility] Comment on above: Performed By: #### C BC #### [address] [id number] HEMOGLOBIN A1Con 03-27-2022 Glucose [Mass/Vol] 114 mg/dL Normal [facility] Comment on above: Performed By: #### H BA1E #### [facility] [address] [place] [address] HbA1c (Bld) [Mass fraction] 5.6 % Normal [facility] Comment on above: Result Comment: Diag nosis of Diabetes-Adults Non-Diabetic: < or = 5.6% Increased risk for developing diabetes: 5.7-6.4% Diagnostic of diabetes: > or = 6.5% . Monitoring of Diabetes Age (y) Therapeutic Goal (%) Adults: >18 <7.0 Pediatrics: 13-18 <7.5 7-12 <8.0 0- 6 7.5-8.5 [place] [employer]. Diabetes Care 33(S1), Apr 2009. Performed By: #### H BA1E #### [facility] [address] [place] [address] HEPATIC FUNCTION PANELon Albumin [Mass/Vol] 4.2 g/dL Normal 3.4 - 5.0 [facility] Comment on above: Performed By: #### H EPFP #### [address] [id number] ALP [Catalytic activity/Vol] 41 U/L Normal 33 - 110 [facility] Comment on above: Performed By: #### H EPFP #### [address] [id number] ALT [Catalytic activity/Vol] 66 U/L High 7 - 45 [facility] Comment on above: Result Comment: Tammy ents treated with Sulfasalazine may generate falsely decreased results for ALT. Performed By: #### H EPFP #### [address] [id number] AST [Catalytic activity/Vol] 70 U/L High 9 - 39 [facility] Comment on above: Performed By: #### H EPFP #### [address] [id number] Bilirubin [Mass/Vol] 0.7 mg/dL Normal 0.0 - 1.2 [facility] Comment on above: Performed By: #### H EPFP #### [address] [id number] Bilirubin.indirect [Mass/Vol] 0.2 mg/dL Normal 0.0 - 0.3 [facility] Comment on above: Performed By: #### H EPFP #### [address] [id number] Protein [Mass/Vol] 7.4 g/dL Normal 6.4 - 8.2 [facility] Comment on above: Performed By: #### H EPFP #### [address] [id number] Hemoglobin A1Con 03-27-2022 Glucose [Mass/Vol] 114 mg/dL [facility] [address] Work Phone: HbA1c (Bld) [Mass fraction] 5.6 % [facility] [address] Work Phone: Comment on above: Diagnosis of Diabete s-Adults Non-Diabetic: < or = 5.6% Increased risk for developing diabetes: 5.7-6.4% Diagnostic of diabetes: > or = 6.5%. Monitoring of Diabetes Age (y) Therapeutic Goal (%) Adults: >18 <7.0 Pediatrics: 13-18 <7.5 7-12 <8.0 0- 6 7.5-8.5 [place] [employer]. Diabetes Care 33(S1), Apr 2009. Hepatic Function Panelon Albumin BCP dye [Mass/Vol] 4.2 g/dL 3.4 - 5.0 [place] [address] Work Phone: ALP [Catalytic activity/Vol] 41 U/L 33 - 110 [place] [address] Work Phone: ALT With P-5'-P [Catalytic activity/Vol] 66 U/L above high threshold 7 - 45 [place] [address] Work Phone: Comment on above: Patients treated wit h Sulfasalazine may generate falsely decreased results for ALT. AST With P-5'-P [Catalytic activity/Vol] 70 U/L above high threshold 9 - 39 [place] [address] Work Phone: Bilirubin [Mass/Vol] 0.7 mg/dL 0.0 - 1.2 [place] [address] Work Phone: Bilirubin.direct [Mass/Vol] 0.2 mg/dL 0.0 - 0.3 [place] [address] Work Phone: Protein [Mass/Vol] 7.4 g/dL 6.4 - 8.2 [facility] Internal [place] [address] Work Phone: Laboratory - Chemistry and C hemistry - challengeon 03-27-2022 TSH Qn 1.04 m[IU]/L See Below [place] [address] Work Phone: Comment on above: Reference Range: 0.4 4 - 3.98 TSH testing is performed using different testing methodology at [facility] than at other [facility]. Direct result comparisons should only be made within the same method. Laboratory - Hematology and Cell countson 03-27-2022 Erythrocyte distribution width (RBC) [Ratio] 12.7 % See Below [place] [address] Work Phone: Comment on above: Reference Range: 11. 5 - 14.5 Hematocrit (Bld) [Volume fraction] 40.1 % See Below [place] [address] Work Phone: Comment on above: Reference Range: 36. 0 - 46.0 Hemoglobin (Bld) [Mass/Vol] 13.7 g/dL See Below [place] [address] Work Phone: Comment on above: Reference Range: 12. 0 - 16.0 MCHC (RBC) [Mass/Vol] 34.2 g/dL See Below [place] [address] Work Phone: Comment on above: Reference Range: 32. 0 - 36.0 MCV (RBC) [Entitic vol] 97 fL 80 - 100 [place] [address] Work Phone: [phone] Platelets (Bld) [#/Vol] 191 10*3/uL 150 - 450 [place] [address] Work Phone: RBC (Bld) [#/Vol] 4.13 {x10E12/L} See Below [place] [address] Work Phone: Comment on above: Reference Range: 4.0 0 - 5.20 WBC (Bld) [#/Vol] 7.5 10*3/uL 4.4 - 11.3 [place] [address] Work Phone: TSH WITH REFLEX TO FREE T4 I F ABNORMALon 03-27-2022 TSH Qn 1.04 m[IU]/L Normal 0.44 - 3.98 [facility] Comment on above: Result Comment: TSH testing is performed using different testing methodology at [facility] than at other [facility]. Direct result comparisons should only be made within the same method. Performed By: #### T HYDS #### [facility] [address] [place], [place] [id number] VITAMIN B12on 03-27-2022 Cobalamin (Vitamin B12) [Mass/Vol] 474 pg/mL Normal 211 - 911 [facility] Comment on above: Performed By: #### V TB12 ####[facility] [place], [place] [id number] VITAMIN D, 25-HYDROXYon VITAMIN D, 25-HYDROXY 65 ng/mL Normal [facility] Comment on above: Result Comment: . DEFICIENCY: < 20 NG/ML INSUFFICIENCY: 20-29 NG/ML SUFFICIENCY: 30-100 NG/ML THIS ASSAY ACCURATELY QUANTIFIES THE SUM OF VITAMIN D3, 25-HYDROXY AND VIT D2,25-HYDROXY. Performed By: #### V TDOH ####[facility] [place], [place] [id number] Vitamin B12, Serumon 022 Cobalamin (Vitamin B12) [Mass/Vol] 474 pg/mL 211 - 911 [facility] [address] Work Phone: Vitamin D 25-Hydroxyon 03-27 25-hydroxyvitamin D3 [Mass/Vol] 65 ng/mL [facility] [address] Work Phone: Comment on above: .DEFICIENCY: < 20 NG /MLINSUFFICIENCY: 20-29 NG/MLSUFFICIENCY: 30-100 NG/MLTHIS ASSAY ACCURATELY QUANTIFIES THE SUM OFVITAMIN D3, 25-HYDROXY AND VIT D2,25-HYDROXY. Echocardiogramon 01-29-2022 Echocardiography [facility], [address] [place] [address] and TRANSTHORACIC ECHOCARDIOGRAM REPORT Patient Name: EMELY W MERLONE Reading Physician: [id number] Rhonda Juan MD Study Date: 01/29/2022 Referring Physician: JHOAN ROBERTO MRN/PID: [id number] PCP: Accession/Order#: [id number] Department Location: [facility] Date of : 1970 Fellow: Brianda Squires Gender: F Nurse: Admit Date: Form Raiser: Devin Castro [facility] Admission Status: Outpatient Additional Staff: Height: 170.18 cm CC Report to: Weight: 91.17 kg Study Type: Echocardiogram BSA: 2.03 m2 Blood Pressure: 122 /70 mmHg Diagnosis/ICD: [id number] Indication: Near syncope Procedure/CPT: Echo Complete w Full [id number] Patient History: Pertinent History: Chest pain syndrome, [...] LA Area A2C: 21.1 cm2 LA Major Mereta A4C: 5.5 cm LA Major Mereta A2C: 5.4 cm LA Vol A4C: 50.6 [...] cm/s AORTA: Asc Ao Diam 3.93 cm [id number] Rhonda Juan MD Electronically signed on 01/29/2022 at 5:35:08 PM Final Normal [facility] CIERRA DIAG W BRITTANI BILATon - [facility] HEMOGLOBIN A1Con 01-07-2022 Glucose [Mass/Vol] 123 mg/dL Normal [facility] Comment on above: Performed By: #### H BA1E #### [facility] [address] [place] [address] HbA1c (Bld) [Mass fraction] 5.9 % Abnormal [facility] Comment on above: Result Comment: Diag nosis of Diabetes-Adults Non-Diabetic: < or = 5.6% Increased risk for developing diabetes: 5.7-6.4% Diagnostic of diabetes: > or = 6.5% . Monitoring of Diabetes Age (y) Therapeutic Goal (%) Adults: >18 <7.0 Pediatrics: 13-18 <7.5 7-12 <8.0 0- 6 7.5-8.5 [place] [employer]. Diabetes Care 33(S1), Apr 2009. Performed By: #### H BA1E #### [facility] [address] [place] [address] Hemoglobin A1Con 01-06-2022 Glucose [Mass/Vol] 123 mg/dL [facility] Work Phone: HbA1c (Bld) [Mass fraction] 5.9 % Abnormal [facility] Work Phone: Comment on above: Diagnosis of Diabete s-Adults Non-Diabetic: < or = 5.6% Increased risk for developing diabetes: 5.7-6.4% Diagnostic of diabetes: > or = 6.5%. Monitoring of Diabetes Age (y) Therapeutic Goal (%) Adults: >18 <7.0 Pediatrics: 13-18 <7.5 7-12 <8.0 0- 6 7.5-8.5 [place] [employer]. Diabetes Care 33(S1), Apr 2009. Laboratory - Chemistry and C hemistry - challengeon 01-06-2022 TSH Qn 5.20 m[IU]/L above high threshold See Below [facility] Work Phone: Comment on above: Reference Range: 0.4 4 - 3.98 TSH testing is performed using different testing methodology at [facility] than [facility] other [facility]. Direct result comparisons should only be made within the same method. RENAL FUNCTION PANELon 01-06 Albumin [Mass/Vol] 4.1 g/dL Normal 3.4 - 5.0 [facility] Comment on above: Performed By: #### R ENAL #### [address] [id number] Anion gap [Moles/Vol] 16 mmol/L Normal 10 - 20 [facility] Comment on above: Performed By: #### R ENAL #### [address], [place] [phone] Calcium [Mass/Vol] 10.0 mg/dL Normal 8.6 - 10.3 [facility] Comment on above: Performed By: #### R ENAL #### [address] [id number] Chloride [Moles/Vol] 91 mmol/L Low 98 - 107 [facility] Comment on above: Performed By: #### R ENAL #### [address] [id number] Creatinine [Mass/Vol] 0.91 mg/dL Normal 0.50 - 1.05 [facility] Comment on above: Performed By: #### R ENAL #### [address] [id number] GFR/1.73 sq M.predicted among non-blacks MDRD (S/P/Bld) [Vol rate/Area] 76 mL/min/{1.73_m2} Normal >90 [facility] Comment on above: Result Comment: CALC ULATIONS OF ESTIMATED GFR ARE PERFORMED USING THE 2020 CKD-EPI STUDY REFIT EQUATION WITHOUT THE RACE VARIABLE FOR THE IDMS-TRACEABLE CREATININE METHODS. https://jasn.asnjournals.org/content/early/ASN.2914903 988 Performed By: #### R ENAL #### [address] [id number] Glucose [Mass/Vol] 88 mg/dL Normal 74 - 99 [facility] Comment on above: Performed By: #### R ENAL #### [address] [id number] HCO3 (Bld) [Moles/Vol] 29 mmol/L Normal 21 - 32 [facility] Comment on above: Performed By: #### R ENAL #### [address] [id number] Phosphate [Mass/Vol] 3.0 mg/dL Normal 2.5 - 4.9 [facility] Comment on above: Result Comment: The performance characteristics of phosphorus testing in heparinized plasma have been validated by the individual laboratory site where testing is performed. Testing on heparinized plasma is not approved by the FDA; however, such approval is not necessary. Performed By: #### R ENAL #### [address] [id number] Potassium [Moles/Vol] 3.9 mmol/L Normal 3.5 - 5.3 [facility] Comment on above: Performed By: #### R ENAL #### [address] [id number] Sodium [Moles/Vol] 132 mmol/L Low 136 - 145 [facility] Comment on above: Performed By: #### R ENAL #### [address] [id number] Urea nitrogen [Mass/Vol] 22 mg/dL Normal 6 - 23 [facility] Comment on above: Performed By: #### R ENAL #### [address] [id number] Renal Function Panelon 01-06 Albumin BCP dye [Mass/Vol] 4.1 g/dL 3.4 - 5.0 [facility] Work Phone: [phone] Anion gap [Moles/Vol] 16 mmol/L 10 - 20 [facility] Work Phone: [phone] Calcium [Mass/Vol] 10.0 mg/dL 8.6 - 10.3 [facility] Work Phone: Chloride [Moles/Vol] 91 mmol/L below low threshold 98 - 107 [facility] Work Phone: CO2 [Moles/Vol] 29 mmol/L 21 - 32 [facility] Work Phone: Creatinine [Mass/Vol] 0.91 mg/dL See Below [facility] Work Phone: Comment on above: Reference Range: 0.5 0 - 1.05 Glucose [Mass/Vol] 88 mg/dL 74 - 99 [facility] Work Phone: Phosphate [Mass/Vol] 3.0 mg/dL 2.5 - 4.9 [facility] Work Phone: Comment on above: The performance sandra acteristics of phosphorus testing in heparinized plasma have been validated by the individual laboratory site where testing is performed. Testing on heparinized plasma is not approved by the FDA; however, such approval is not necessary. Potassium [Moles/Vol] 3.9 mmol/L 3.5 - 5.3 [facility] Work Phone: Sodium [Moles/Vol] 132 mmol/L below low threshold 136 - 145 [facility] Work Phone: Urea nitrogen [Mass/Vol] 22 mg/dL 6 - 23 [facility] Work Phone: Renal Function Panel 76 {mL/min/1.73m2} >90 [facility] Work Phone: Comment on above: CALCULATIONS OF LUISA MATED GFR ARE PERFORMED USING THE 2020 CKD-EPI STUDY REFIT EQUATION WITHOUT THE RACE VARIABLE FOR THE IDMS-TRACEABLE CREATININE METHODS.https://jasn.asnjournals.org/content/early/ASN .7977228988 T4 - Free Thyroxine, Serumon 01-06-2022 Free T4 [Mass/Vol] 0.75 ng/dL See Below [facility] Work Phone: Comment on above: Reference Range: 0.6 1 - 1.12 Thyroxine Free testing is performed using different testing methodology at [facility] than at [facility]. Direct result comparisons should only be made [...] THYROXINE,FREE 0.75 ng/dL Normal 0.61 - 1.12 [facility] Comment on above: Result Comment: Thyr oxine Free testing is performed using different testing methodology at [facility] than at [facility]. Direct result comparisons should only be made [...] draw. Performed By: #### T 4FRE #### [address] [id number] TSH WITH REFLEX TO FREE T4 I F ABNORMALon 01-06-2022 TSH Qn 5.20 m[IU]/L High 0.44 - 3.98 [facility] Comment on above: Result Comment: TSH testing is performed using different testing methodology at [facility] than at [facility]. Direct result comparisons should only be made within the same method. Performed By: #### T HYDS #### [address] [id number] Laboratory - Chemistry and C hemistry - challengeon 01-01-2022 Albumin BCP dye [Mass/Vol] 4.2 g/dL 3.4 - 5.0 [facility] 3201 Work Phone: ALP [Catalytic activity/Vol] 49 U/L 33 - 110 [place] [address] Work Phone: ALT With P-5'-P [Catalytic activity/Vol] 58 U/L above high threshold 7 - 45 [place] [address] Work Phone: Comment on above: Patients treated wit h Sulfasalazine may generate falsely decreased results for ALT. Anion gap [Moles/Vol] 16 mmol/L 10 - 20 [facility] 3201 Work Phone: AST With P-5'-P [Catalytic activity/Vol] 64 U/L above high threshold 9 - 39 [place] [address] Work Phone: Bilirubin [Mass/Vol] 0.9 mg/dL 0.0 - 1.2 [facility] 3201 Work Phone: Calcium [Mass/Vol] 9.3 mg/dL 8.6 - 10.3 [place] [address] Work Phone: Chloride [Moles/Vol] 92 mmol/L below low threshold 98 - 107 [place] [address] Work Phone: CO2 [Moles/Vol] 31 mmol/L 21 - 32 [place] [address] Work Phone: Creatinine [Mass/Vol] 1.81 mg/dL above high threshold See Below [place] [address] Work Phone: Comment on above: Reference Range: 0.5 0 - 1.05 Glucose [Mass/Vol] 98 mg/dL 74 - 99 [place] [address] Work Phone: Potassium [Moles/Vol] 4.4 mmol/L 3.5 - 5.3 [place] [address] Work Phone: [phone] Protein [Mass/Vol] 7.2 g/dL 6.4 - 8.2 [place] [address] Work Phone: [phone] Sodium [Moles/Vol] 135 mmol/L below low threshold 136 - 145 [place] [address] Work Phone: TSH Qn 3.77 m[IU]/L See Below [place] [address] Work Phone: Comment on above: Reference Range: 0.4 4 - 3.98 TSH testing is performed using different testing methodology at [facility] than [facility]. Direct result comparisons should only be made within the same method. Urea nitrogen [Mass/Vol] 17 mg/dL 6 - 23 [place] [address] Work Phone: Laboratory - Hematology and Cell countson 01-01-2022 Erythrocyte distribution width (RBC) [Ratio] 14.1 % See Below [place] [address] Work Phone: Comment on above: Reference Range: 11. 5 - 14.5 Hematocrit (Bld) [Volume fraction] 43.5 % See Below [place] [address] Work Phone: Comment on above: Reference Range: 36. 0 - 46.0 Hemoglobin (Bld) [Mass/Vol] 14.3 g/dL See Below [place] [address] Work Phone: Comment on above: Reference Range: 12. 0 - 16.0 MCHC (RBC) [Mass/Vol] 32.9 g/dL See Below [place] [address] Work Phone: Comment on above: Reference Range: 32. 0 - 36.0 MCV (RBC) [Entitic vol] 97 fL 80 - 100 [place] [address] Work Phone: Platelets (Bld) [#/Vol] 233 10*3/uL 150 - 450 [place] [address] Work Phone: RBC (Bld) [#/Vol] 4.49 {x10E12/L} See Below [place] [address] Work Phone: Comment on above: Reference Range: 4.0 0 - 5.20 WBC (Bld) [#/Vol] 8.4 10*3/uL 4.4 - 11.3 [place] [address] Work Phone: No Panel Informationon 01-01 33 {mL/min/1.73m2} Abnormal >90 [place] [address] Work Phone: Comment on above: CALCULATIONS OF LUISA MATED GFR ARE PERFORMED USING THE 2020 CKD-EPI STUDY REFIT EQUATION WITHOUT THE RACE VARIABLE FOR THE IDMS-TRACEABLE CREATININE METHODS.https://jasn.asnjournals.org/content//ASN .1071982281 Office Visiton 01-01-2022 Follow-up visit Diagnoses/Problems Encounter [...] walking more. Included in this is the [employer] pal calorie counting jo-ann. Encouraged her to [...] walk more-each day-encouraged her to continue efforts Ljayyxzcu-uhjpjvwobb-hhg will add Augmentin and restart Flonase and [...] care- reminded patient to follow with her retrofit installer for gynecologic exams regularly as recommended by her retrofit installer- Dr. Perez; - annually. She actually follows with her nurse pr (more content not included)... Normal [employer] Tobacco Screening.on 022 Adult depression screening assessment No [facility] [employer] Work Phone: Fall risk assessment a) No falls within the last year [facility] [employer] Work Phone: Tobacco use status [facility] b) No [facility] [employer] Work Phone: Tobacco Screening.on 022 Adult depression screening assessment No [facility] [employer] Work Phone: Fall risk assessment a) No falls within the last year [facility] [employer] Work Phone: Tobacco use status [facility] b) No [facility] [employer] Work Phone: ALT - Alanine Aminotransfera se, Serumon 09-12-2021 ALT With P-5'-P [Catalytic activity/Vol] 26 U/L 7 - 45 [facility] [employer] Work Phone: Comment on above: Patients treated wit h Sulfasalazine may generate falsely decreased results for ALT. Hemoglobin A1Con 09-12-2021 Glucose [Mass/Vol] 111 mg/dL [facility] [id number] Work Phone: HbA1c (Bld) [Mass fraction] 5.5 % [facility] 3201 Work Phone: Comment on above: Diagnosis of Diabete s-Adults Non-Diabetic: < or = 5.6% Increased risk for developing diabetes: 5.7-6.4% Diagnostic of diabetes: > or = 6.5%. Monitoring of Diabetes Age (y) Therapeutic Goal (%) Adults: >18 <7.0 Pediatrics: 13-18 <7.5 7-12 <8.0 0- 6 7.5-8.5 [employer] [employer]. Diabetes Care 33(S1), Apr 2009. Laboratory - Chemistry and C hemistry - challengeon 09-12-2021 Anion gap [Moles/Vol] 19 mmol/L 10 - 20 [place] [address] Work Phone: [phone] Calcium [Mass/Vol] 9.1 mg/dL 8.6 - 10.3 [place] [address] Work Phone: Chloride [Moles/Vol] 97 mmol/L below low threshold 98 - 107 [place] [address] Work Phone: CO2 [Moles/Vol] 26 mmol/L 21 - 32 [place] [address] Work Phone: Creatinine [Mass/Vol] 0.80 mg/dL See Below [place] [address] Work Phone: [phone] Comment on above: Reference Range: 0.5 0 - 1.05 Glucose [Mass/Vol] 88 mg/dL 74 - 99 [facility] 320 Work Phone: Potassium [Moles/Vol] 3.5 mmol/L 3.5 - 5.3 [place] [address] Work Phone: Sodium [Moles/Vol] 138 mmol/L 136 - 145 [place] [address] Work Phone: TSH Qn 5.48 m[IU]/L above high threshold See Below [facility] 3201 Work Phone: Comment on above: Reference Range: 0.4 4 - 3.98 TSH testing is performed using different testing methodology at [facility] than [facility]. Direct result comparisons should only be made within the same method. Urea nitrogen [Mass/Vol] 12 mg/dL 6 - 23 [facility] 3201 Work Phone: Lipid Panelon 09-12-2021 Cholesterol [Mass/Vol] 284 mg/dL above high threshold 0 - 199 [facility] 3201 Work Phone: Comment on above: . [...] dosing. Cholesterol in HDL [Mass/Vol] 49.0 mg/dL [facility] 3201 Work Phone: Comment on above: . AGE VERY LOW LOW N ORMAL HIGH 0-19 Y < 35 < 40 40-45 ---- 20- 24 Y ---- < 40 >45 ---- >24 Y ---- < 40 40-60 >60. Cholesterol in LDL [Mass/Vol] 181 mg/dL above high threshold 0 - 99 [facility] 3201 Work Phone: Comment on above: . NEAR BORD AGE WALDO RABLE OPTIMAL HIGH HIGH VERY HIGH 0-19 Y 0 - 109 --- 110-129 >/= 130 ---- 20-24 Y 0 - 119 --- 120-159 >/= 160 ---- >24 Y 0 - 99 100-129 130-159 160-189 >/=190. Cholesterol non HDL [Mass/Vol] 235 mg/dL [place] [address] Work Phone: Comment on above: AGE DESIRABLE BORDER LINE HIGH HIGH VERY HIGH 0-19 Y 0 - 119 120 - 144 >/= 145 >/= 160 20-24 Y 0 - 149 150 - 189 >/= 190 ---- >24 Y 30 MG/DL ABOVE LDL CHOLESTEROL GOAL. Cholesterol.total/Ch olesterol in HDL [Mass ratio] 5.8 {ratio} Abnormal [place] [address] Work Phone: Comment on above: REF VALUESDESIRABLE < 3.4HIGH RISK > 5.0 Triglyceride [Mass/Vol] 268 mg/dL above high threshold 0 - 149 [place] [address] Work Phone: Comment on above: . AGE [...] mg/dL above high threshold 0 - 40 [facility] 3201 Work Phone: No Panel Informationon 09-12 89 {mL/min/1.73m2} >90 [facility] 320 Work Phone: Comment on above: CALCULATIONS OF LUISA MATED GFR ARE PERFORMED USING THE 2020 CKD-EPI STUDY REFIT EQUATION WITHOUT THE RACE VARIABLE FOR THE IDMS-TRACEABLE CREATININE METHODS.https://jasn.asnjournals.org/content//ASN .3494309231 T4 - Free Thyroxine, Serumon 09-12-2021 Free T4 [Mass/Vol] 0.72 ng/dL See Below [facility] 3201 Work Phone: Comment on above: Reference Range: 0.6 1 - 1.12 Thyroxine Free testing is performed using different testing methodology at [facility] than [facility]. Direct result comparisons should only be made [...] 25-Hydroxyon 09-12 25-hydroxyvitamin D3 [Mass/Vol] 46 ng/mL [facility] 3201 Work Phone: Comment on above: .DEFICIENCY: < 20 NG /MLINSUFFICIENCY: 20-29 NG/MLSUFFICIENCY: 30-100 NG/MLTHIS ASSAY ACCURATELY QUANTIFIES THE SUM OFVITAMIN D3, 25-HYDROXY AND VIT D2,25-HYDROXY. Tobacco Screening.on 022 Fall risk assessment a) No falls within the last year [facility] A2470 DO Work Phone: Tobacco use status [facility] b) No [facility] A2470 DO Work Phone: [phone] Blood Pressure Cuff Sizeon 0 08-06-2021 Fall risk assessment a) No falls within the last year [facility] A2470 DO Work Phone: [phone] Tobacco use status [facility] c) Screening not indicated [facility] A2470 DO Work Phone: [phone] Blood Pressure Cuff Size Adult [facility] A2470 DO Work Phone: HCG,BETA-QUANTITATIVEon 04-0 HCG,BETA-QUANTITATIV E Canceled Normal [facility] Comment on above: Order Comment: TEST HCG,BETA-QUANTITATIVE WAS CANCELLED, 07/24/2021 07:49 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 URINE PREG NEEDED, OK TO CANCEL [...] HCG measurement is performed using the [employer] Access Immunoassay which detects intact HCG and free beta HCG subunit. This test is not indicated for use as a tumor marker. HCG testing is performed using a different test methodology at [facility] than [facility]. Direct result comparison should only be made within the same method. Performed By: #### H CGQU #### [address] [address] HCG,URINEon 07-24-2021 Beta HCG ( test) Ql (U) Negative Normal Negative [facility] Comment on above: Performed By: #### H CGU #### [address] [address] Operative Reports - [place] on 07-24-2021 Operative Reports - [place] SURGEON: Char Johnson MD PREOPERATIVE DIAGNOSIS: Soft tissue mass, anterior abdominal wall. POSTOPERATIVE DIAGNOSIS: Soft tissue mass, anterior abdominal wall, likely lipoma. PROCEDURE PERFORMED: Excision of anterior abdominal wall soft tissue mass, intermediate closure of wound. CONSULTING ANALYST: SA. ANESTHESIA: General. INDICATIONS: The patient is [...] Char Johnson MD EST EST DICTATION NUMBER: [id number] INTERNAL JOB NUMBER: [id number] CC: JHOAN ROBERTO Electronic Signatures: Char Johnson) (Signed on 24-Jul-2021 11:35) Authored Unsigned, Draft (SYS GENERATED) (Entered on 24-Jul-2021 11:05) Entered Last Updated: 24-Jul-2021 11:35 by Char Johnson) [facility] Order Reconciliationon 07-24 Order Reconciliation Page 1 [...] not required (more content not included)... Normal [facility] BASIC METABOLIC PANELon 03-3 -2021 Anion gap [Moles/Vol] 13 mmol/L Normal 10 - 20 [facility] Comment on above: Performed By: #### B MP #### [address] [address] Calcium [Mass/Vol] 9.2 mg/dL Normal 8.6 - 10.3 [facility] Comment on above: Performed By: #### B MP #### [address] [address] Chloride [Moles/Vol] 99 mmol/L Normal 98 - 107 [facility] Comment on above: Performed By: #### B MP #### [address] [address] Creatinine [Mass/Vol] 0.80 mg/dL Normal 0.50 - 1.05 [facility] Comment on above: Performed By: #### B MP #### [address] [address] GFR/1.73 sq M.predicted among non-blacks MDRD (S/P/Bld) [Vol rate/Area] 89 mL/min/{1.73_m2} Normal >90 [facility] Comment on above: Result Comment: CALC ULATIONS OF ESTIMATED GFR ARE PERFORMED USING THE 2020 CKD-EPI STUDY REFIT EQUATION WITHOUT THE RACE VARIABLE FOR THE IDMS-TRACEABLE CREATININE METHODS. https://jasn.asnjournals.org/content//ASN.4397515 988 Performed By: #### B MP #### [address] [address] Glucose [Mass/Vol] 89 mg/dL Normal 74 - 99 [facility] Comment on above: Performed By: #### B MP #### [address] [address] HCO3 (Bld) [Moles/Vol] 30 mmol/L Normal 21 - 32 [facility] Comment on above: Performed By: #### B MP #### [address] [address] Potassium [Moles/Vol] 3.6 mmol/L Normal 3.5 - 5.3 [facility] Comment on above: Performed By: #### B MP #### [address] [address] Sodium [Moles/Vol] 138 mmol/L Normal 136 - 145 [facility] Comment on above: Performed By: #### B MP #### [address] [address] Urea nitrogen [Mass/Vol] 9 mg/dL Normal 6 - 23 [facility] Comment on above: Performed By: #### B MP #### [address] [address] CBCon 07-17-2021 Erythrocyte distribution width (RBC) [Ratio] 14.6 % High 11.5 - 14.5 [facility] Comment on above: Performed By: #### C BC #### [address] [address] Hematocrit (Bld) [Volume fraction] 38.2 % Normal 36.0 - 46.0 [facility] Comment on above: Performed By: #### C BC #### [address] [place] [address] Hemoglobin (Bld) [Mass/Vol] 12.2 g/dL Normal 12.0 - 16.0 [facility] Comment on above: Performed By: #### C BC #### [address] [address] MCHC (RBC) [Mass/Vol] 31.9 g/dL Low 32.0 - 36.0 [facility] Comment on above: Performed By: #### C BC #### [address] [address] MCV (RBC) [Entitic vol] 96 fL Normal 80 - 100 [facility] Comment on above: Performed By: #### C BC #### [address] [address] NUCLEATED RBC 0.0 /100 WBC Normal 0.0 - 0.0 [facility] Comment on above: Performed By: #### C BC #### [address] [address] Platelets (Bld) [#/Vol] 256 10*3/uL Normal 150 - 450 [facility] Comment on above: Performed By: #### C BC #### [address] [address] RBC 3.96 x10E12/L Low 4.00 - 5.20 [facility] Comment on above: Performed By: #### C BC #### [address] [address] WBC (Bld) [#/Vol] 5.0 10*3/uL Normal 4.4 - 11.3 [facility] Comment on above: Performed By: #### C BC #### [address] [address] Patient Profile - Preop v3on 07-17-2021 Patient Profile - Preop v3 Patient Profile - Preop: Initial Info: Patient DemographicsName: EMELY CLEVELAND Date: 1970 Address: [facility] [address] [place], [id number] Primary Phone [phone] How to be Addressedsusanna Spoken Language PreferredEnglish Source of Informationpatient Stated Reason for Admissionabd wall lesion-LIPOMA Primary Contact Name and NumberCHRISTI-DAUGHTER Limitations on Visitors/Phone Callsonly immediate family may visit Medications Brought to Hospitalno General Health: Weight in kg89.5 kilogram(s) Weight in xny644.3 pound(s) Weight Methodactual (measured) Scale Typechair Height in feet5 feet Height in inches6.97 inch(es) Height in cm170.1 centimeter(s) Height Methodstated BMI (kg/m2)30.932 square meter Patient or Family Member Reaction to Anesthesiano previous reaction Blood Avoidance/Restrictionsno ne Previous Transfusion Reactionno Health Mgmt: [facility]; respiratory Are You no Are You Currently Breastfeedingno Barriers to Managing Healthnone Relationship/Environ: Lives Withalone Living Arrangementshouse Resource/Environmental Concernsnone Anticipated Transition [place] [facility] Anticipated at Transitionnone Tobacco Use: Tobacco [place] Tobacco Typecigarettes Last Tobacco [id number] Number of yrs25 Tobacco Commentquit in 2014 Pre-op Checklist: Arrival [id number] Arrival Time07:15 Procedure TypeEXC ABD WALL LESION NPOyes Last Food [id number] 22:30 Last Clear Fluid [id number] 05:00 ID Band On Patientpatient ID (name) [...] 24-Jul-2021 08:05 by Danelle Joe (GILBERTO) Normal [facility] Tobacco Screening.on 022 Fall risk assessment a) No falls within the last year -[facility] [place] A2470 DO Work Phone: Tobacco use status [facility] b) No [facility] A2470 DO Work Phone: [facility] Adult depression screening assessment Yes -[place] 3201 Work Phone: Fall risk assessment a) No falls within the last year -[place] 3201 Work Phone: Tobacco use status CP b) No -[place] [facility] 3201 Work Phone: Activated Partial Thrombopla stin Timeon 05-27-2021 aPTT Coag (PPP) [Time] 33 s 26 - 39 [facility] 3201 Work Phone: Comment on above: Note new reference sumit garcia as of 03/19/2021 at 10:00am. Laboratory - Chemistry and C hemistry - challengeon 05-27-2021 Albumin BCP dye [Mass/Vol] 4.2 g/dL 3.4 - 5.0 [facility] 3201 Work Phone: ALP [Catalytic activity/Vol] 53 U/L 33 - 110 [facility] 3201 Work Phone: ALT With P-5'-P [Catalytic activity/Vol] 78 U/L above high threshold 7 - 45 [place] [address] Work Phone: Comment on above: Patients treated wit h Sulfasalazine may generate falsely decreased results for ALT. Anion gap [Moles/Vol] 16 mmol/L 10 - 20 [place] [address] Work Phone: AST With P-5'-P [Catalytic activity/Vol] 146 U/L above high threshold 9 - 39 [place] [address] Work Phone: Bilirubin [Mass/Vol] 0.6 mg/dL 0.0 - 1.2 [place] [address] Work Phone: Calcium [Mass/Vol] 8.8 mg/dL 8.6 - 10.3 [place] [address] Work Phone: Chloride [Moles/Vol] 93 mmol/L below low threshold 98 - 107 [place] [address] Work Phone: CO2 [Moles/Vol] 29 mmol/L 21 - 32 [place] [address] Work Phone: Creatinine [Mass/Vol] 0.69 mg/dL See Below [place] [address] Work Phone: Comment on above: Reference Range: 0.5 0 - 1.05 Glucose [Mass/Vol] 100 mg/dL above high threshold 74 - 99 [place] [address] Work Phone: Potassium [Moles/Vol] 4.0 mmol/L 3.5 - 5.3 [place] [address] Work Phone: Protein [Mass/Vol] 7.4 g/dL 6.4 - 8.2 [place] [address] Work Phone: Sodium [Moles/Vol] 134 mmol/L below low threshold 136 - 145 [place] [address] Work Phone: Urea nitrogen [Mass/Vol] 8 mg/dL 6 - 23 [place] [address] Work Phone: Laboratory - Coagulationon 0 05-27-2021 INR Coag (PPP) [Relative time] 0.9 {INR} 0.9 - 1.1 [place] [address] Work Phone: PT Coag (PPP) [Time] 10.8 s 9.8 - 13.4 [place] [address] Work Phone: Comment on above: Note new reference sumit garcia as of 03/19/2021 at 10:00am. Laboratory - Hematology and Cell countson 05-27-2021 Erythrocyte distribution width (RBC) [Ratio] 15.6 % above high threshold See Below [place] [address] Work Phone: Comment on above: Reference Range: 11. 5 - 14.5 Hematocrit (Bld) [Volume fraction] 47.9 % above high threshold See Below [place] [address] Work Phone: Comment on above: Reference Range: 36. 0 - 46.0 Hemoglobin (Bld) [Mass/Vol] 15.5 g/dL See Below [place] [address] Work Phone: Comment on above: Reference Range: 12. 0 - 16.0 MCHC (RBC) [Mass/Vol] 32.4 g/dL See Below [place] [address] Work Phone: Comment on above: Reference Range: 32. 0 - 36.0 MCV (RBC) [Entitic vol] 93 fL 80 - 100 [place] [address] Work Phone: Platelets (Bld) [#/Vol] 197 10*3/uL 150 - 450 [facility] 3201 Work Phone: RBC (Bld) [#/Vol] 5.13 {x10E12/L} See Below [facility] 3201 Work Phone: Comment on above: Reference Range: 4.0 0 - 5.20 WBC (Bld) [#/Vol] 6.6 10*3/uL 4.4 - 11.3 [facility] 3201 Work Phone: No Panel Informationon 05-27 >90 >90 [facility] 3201 Work Phone: Comment on above: CALCULATIONS OF LUISA MATED GFR ARE PERFORMED USING THE 2020 CKD-EPI STUDY REFIT EQUATION WITHOUT THE RACE VARIABLE FOR THE IDMS-TRACEABLE CREATININE METHODS.https://jasn.asnjournals.org/content//ASN .2781785792 Radiologyon 05-24-2021 US Abdomen Normal [facility] 3201 Work Phone: Tobacco Screening.on 022 Adult depression screening assessment Positive [facility] 3201 Work Phone: [phone] Fall risk assessment a) No falls within the last year [facility] 3201 Work Phone: [phone] Tobacco use status [facility] b) No [facility] 3201 Work Phone: [phone] Tobacco Screening.on 021 Fall risk assessment a) No falls within the last year [facility] 3201 Work Phone: [phone] Tobacco use status [facility] b) No [facility] 3201 Work Phone: Hemoglobin A1Con 01-03-2021 Glucose [Mass/Vol] 123 mg/dL [facility] 3201 Work Phone: HbA1c (Bld) [Mass fraction] 5.9 % Abnormal [facility] 3201 Work Phone: Comment on above: Diagnosis of Diabete s-Adults Non-Diabetic: < or = 5.6% Increased risk for developing diabetes: 5.7-6.4% Diagnostic of diabetes: > or = 6.5%. Monitoring of Diabetes Age (y) Therapeutic Goal (%) Adults: >18 <7.0 Pediatrics: 13-18 <7.5 7-12 <8.0 0- 6 7.5-8.5 [employer] [employer]. Diabetes Care 33(S1), Apr 2009. Laboratory - Chemistry and C hemistry - challengeon 01-03-2021 TSH Qn 2.70 m[IU]/L See Below [facility] 3201 Work Phone: Comment on above: Reference Range: 0.4 4 - 3.98 TSH testing is performed using different testing methodology at [facility] than [facility]. Direct result comparisons should only be made within the same method. Vital Signs Date Time Vital Sign Value Performing Clinician Facility 10-05-2023 15:47-0400 Body height 170.2 cm Kelly Ames APRN.CNP Work Phone: [facility] 10-05-2023 15:47-0400 Body mass index (BMI) [Ratio] 26.59 kg/m2 Kelly Ames APRN.CNP Work Phone: [facility] 10-05-2023 15:47-0400 Body weight 77 kg Kelly Ames APRN.CNP Work Phone: [facility] 10-05-2023 15:47-0400 Diastolic blood pressure 76 mm[Hg] Kelly Ames APRN.CATARACT LENS GENERATOR Work Phone: [facility] 10-05-2023 15:47-0400 Heart rate 102 /min Kelly Ames APRN.CNP Work Phone: [facility] 10-05-2023 15:47-0400 Systolic blood pressure 104 mm[Hg] Kelly Ames APRN.CNP Work Phone: [facility] 09-25-2023 09:49-0400 Diastolic blood pressure 70 mm[Hg] Jhoan Roberto MD Work Phone: [facility] 09-25-2023 09:49-0400 Heart rate 64 /min Jhoan Roberto MD Work Phone: [facility] 09-25-2023 09:49-0400 Systolic blood pressure 90 mm[Hg] Jhoan Roberto MD Work Phone: [facility] 09-25-2023 09:05-0400 Body height 170.2 cm Jhoan Roberto MD Work Phone: [facility] 09-25-2023 09:05-0400 Body mass index (BMI) [Ratio] 26.94 kg/m2 Jhoan Roberto MD Work Phone: [facility] 09-25-2023 09:05-0400 Body temperature 97 [degF] Jhoan Roberto MD Work Phone: [facility] 09-25-2023 09:05-0400 Body weight 78.02 kg Jhoan Roberto MD Work Phone: [facility] 09-25-2023 09:05-0400 SaO2% (BldA) [Mass fraction] 94 % Jhoan Roberto MD Work Phone: [facility] 02-23-2023 12:56-0500 Body temperature 97.2 [degF] [address] 02-23-2023 12:56-0500 Diastolic blood pressure 75 mm[Hg] [address] 02-23-2023 12:56-0500 Heart rate 76 /min [address] 02-23-2023 12:56-0500 Respiratory rate 18 /min [address] 02-23-2023 12:56-0500 SaO2% (BldA) [Mass fraction] 97 % [address] 02-23-2023 12:56-0500 Systolic blood pressure 131 mm[Hg] [address] 02-23-2023 09:39-0500 Body height 170.[address] 02-23-2023 09:39-0500 Body mass index (BMI) [Ratio] 29.42 kg/m2 [address] 02-23-2023 09:39-0500 Body weight 85.[address] 12-04-2022 15:57-0400 Body height 170.18 cm Jhoan Roberto Work Phone: [facility] 450 Work Phone: 12-04-2022 15:57-0400 Body mass index (BMI) [Ratio] 30.09 kg/m2 Jhoan Roberto Work Phone: [facility] 450 Work Phone: 12-04-2022 15:57-0400 Body surface area Derived from formula 1.99 m2 Jhoan Roberto Work Phone: [facility] 450 Work Phone: 12-04-2022 15:57-0400 Body temperature 97.4 [degF] Jhoan Roberto Work Phone: [facility] 450 Work Phone: 12-04-2022 15:57-0400 Body weight 87.15 kg Jhoan Roberto Work Phone: [facility] 450 Work Phone: 12-04-2022 15:57-0400 Diastolic blood pressure 94 mm[Hg] Jhoan Roberto Work Phone: [facility] 450 Work Phone: 12-04-2022 15:57-0400 Heart rate 104 /min Jhoan Roberto Work Phone: [facility] 450 Work Phone: 12-04-2022 15:57-0400 Respiratory rate 18 /min Jhoan Roberto Work Phone: [facility] 450 Work Phone: 12-04-2022 15:57-0400 SaO2% (BldA) [Mass fraction] 97 % Jhoan Roberto Work Phone: [facility] 450 Work Phone: 12-04-2022 15:57-0400 Systolic blood pressure 127 mm[Hg] Jhoan Roberto Work Phone: [facility] 450 Work Phone: 10-17-2022 14:13-0400 Body mass index (BMI) [Ratio] 30.48 kg/m2 Jhoan Roberto MD Work Phone: [facility] 10-17-2022 14:13-0400 Body temperature 97.7 [degF] Jhoan Roberto MD Work Phone: [facility] 10-17-2022 14:13-0400 Body weight 88.27 kg Jhoan Roberto MD Work Phone: [facility] 10-17-2022 14:13-0400 Diastolic blood pressure 86 mm[Hg] Jhoan Roberto MD Work Phone: [facility] 10-17-2022 14:13-0400 Heart rate 98 /min Jhoan Roberto MD Work Phone: [facility] 10-17-2022 14:13-0400 Respiratory rate 16 /min Jhoan Roberto MD Work Phone: [facility] 10-17-2022 14:13-0400 SaO2% (BldA) [Mass fraction] 99 % Jhoan Roberto MD Work Phone: [facility] 10-17-2022 14:13-0400 Systolic blood pressure 126 mm[Hg] Jhoan Roberto MD Work Phone: [facility] 07-07-2022 10:42-0400 Body height 171.5 cm Kelly Ames APRN.CATARACT LENS GENERATOR Work Phone: [facility] 07-07-2022 10:42-0400 Body weight 88 kg Kelly Ames APRN.CATARACT LENS GENERATOR Work Phone: [facility] 07-07-2022 10:42-0400 Diastolic blood pressure 73 mm[Hg] Kelly Ames APRN.CATARACT LENS GENERATOR Work Phone: [facility] 07-07-2022 10:42-0400 Heart rate 97 /min Kelly Ames APRN.CATARACT LENS GENERATOR Work Phone: [facility] 07-07-2022 10:42-0400 Systolic blood pressure 104 mm[Hg] Kelly Ames APRN.CATARACT LENS GENERATOR Work Phone: [facility] 03-28-2022 11:04-0500 Body height 170.18 cm Jhoan Roberto Work Phone: [facility] Medicine-Internal Medicine 3201 Work Phone: 03-28-2022 11:04-0500 Body mass index (BMI) [Ratio] 31.09 kg/m2 Jhoan Roberto Work Phone: [facility] Medicine-Internal Medicine 3201 Work Phone: 03-28-2022 11:04-0500 Body surface area Derived from formula 2.02 m2 Jhoan Roberto Work Phone: [facility]-Internal Medicine 3201 Work Phone: 03-28-2022 11:04-0500 Body temperature 97.6 [degF] Jhoan Roberto Work Phone: [facility]-Internal Medicine 3201 Work Phone: 03-28-2022 11:04-0500 Body weight 90.04 kg Jhoan Roberto [facility] Work Phone: 03-28-2022 11:04-0500 Diastolic blood pressure 79 mm[Hg] Jhoan Roberto Work Phone: [facility] Work Phone: 03-28-2022 11:04-0500 Heart rate 104 /min Jhoan Roberto [facility] Work Phone: 03-28-2022 11:04-0500 Respiratory rate 18 /min Jhoan Roberto Work Phone[facility] Work Phone: 03-28-2022 11:04-0500 SaO2% (BldA) [Mass fraction] 96 % Jhoan Roberto [facility] Work Phone: 03-28-2022 11:04-0500 Systolic blood pressure 123 mm[Hg] Jhoan Roberto [facility] Work Phone: 01-01-2022 08:26-0400 Diastolic blood pressure 72 mm[Hg] Jhoan Roberto [facility] Work Phone: 01-01-2022 08:26-0400 Systolic blood pressure 118 mm[Hg] Jhoan Roberto [facility] Phone[facility] Work Phone: 01-01-2022 07:44-0400 Body height 170.18 cm Jhoan Roberto [facility] Work Phone: 01-01-2022 07:44-0400 Body mass index (BMI) [Ratio] 31.48 kg/m2 Jhoan Roberto Work Phone[facility] Work Phone: 01-01-2022 07:44-0400 Body surface area Derived from formula 2.03 m2 Jhoan Roberto Work Phone[facility] Work Phone: 01-01-2022 07:44-0400 Body temperature 98.5 [degF] Jhoan Roberto [facility] Work Phone: 01-01-2022 07:44-0400 Body weight 91.17 kg Jhoan Roberto [facility] Work Phone: 01-01-2022 07:44-0400 Diastolic blood pressure 80 mm[Hg] Jhoan Roberto [facility] Phone[facility] Work Phone: 01-01-2022 07:44-0400 Heart rate 96 /min Jhoan Roberto [facility] Work Phone: 01-01-2022 07:44-0400 Respiratory rate 18 /min Jhoan Roberto Work Phone[facility] Work Phone: 01-01-2022 07:44-0400 SaO2% (BldA) [Mass fraction] 94 % Jhoan Roberto Work [facility] Work Phone: 01-01-2022 07:44-0400 Systolic blood pressure 110 mm[Hg] Jhoan Roberto [facility] Phone[facility] Work Phone: 09-18-2021 14:59-0400 Body height 170.18 cm Jhoan Roberto [facility] Work Phone: 09-18-2021 14:59-0400 Body mass index (BMI) [Ratio] 31.85 kg/m2 Jhoan Roberto Work Phone[facility] Work Phone: 09-18-2021 14:59-0400 Body surface area Derived from formula 2.04 m2 Jhoan Roberto Work Phone: [facility] Work Phone: 09-18-2021 14:59-0400 Body temperature 98.1 [degF] Jhoan Roberto Work Phone[facility] Work Phone: 09-18-2021 14:59-0400 Body weight 92.25 kg Jhoan Roberto [facility] Work Phone: 09-18-2021 14:59-0400 Diastolic blood pressure 77 mm[Hg] Jhoan Roberto [facility] Phone[facility] Work Phone: 09-18-2021 14:59-0400 Heart rate 100 /min Jhoan Roberto Work Phone[facility] Work Phone: 09-18-2021 14:59-0400 Respiratory rate 16 /min Jhoan Roberto [facility] Phone[facility] Work Phone: 09-18-2021 14:59-0400 SaO2% (BldA) [Mass fraction] 96 % Jhoan Roberto Work Phone: [facility] Medicine 3201 Work Phone: 09-18-2021 14:59-0400 Systolic blood pressure 115 mm[Hg] Jhoan Roberto Work Phone: [facility] 3201 Work Phone: 09-02-2021 08:04-0400 Body mass index (BMI) [Ratio] 32 kg/m2 Jhoan Roberto Work Phone: [facility] A2470 DO Work Phone: 09-02-2021 08:04-0400 Body surface area Derived from formula 2.04 m2 Jhoan Roberto Work Phone: [facility] A2470 DO Work Phone: 09-02-2021 08:04-0400 Body weight 92.68 kg Jhoan Roberto Work Phone: [facility] A2470 DO Work Phone: 09-02-2021 08:04-0400 Diastolic blood pressure 93 mm[Hg] Jhoan Roberto Work Phone: [facility] A[facility]70 DO Work Phone: 09-02-2021 08:04-0400 Heart rate 110 /min Jhoan Roberto Work Phone: [facility] A2470 DO Work Phone: 09-02-2021 08:04-0400 Respiratory rate 16 /min Jhoan Roberto Work Phone: [facility] A2470 DO Work Phone: 09-02-2021 08:04-0400 SaO2% (BldA) [Mass fraction] 96 % Jhoan Roberto Work Phone: [facility] A2470 DO Work Phone: 09-02-2021 08:04-0400 Systolic blood pressure 135 mm[Hg] Jhoan Roberto Work Phone: [facility] A2470 DO Work Phone: 09-02-2021 08:04-0400 0 1 Jhoan Roberto Work Phone: [facility] A2470 DO Work Phone: Comment on above: [employer] 08-06-2021 13:59-0400 Body height 170.18 cm Jhoan Roberto Work Phone: [facility] A2470 DO Work Phone: 08-06-2021 13:59-0400 Body mass index (BMI) [Ratio] 31.72 kg/m2 Jhoan Roberto Work Phone: [facility] A2470 DO Work Phone: 08-06-2021 13:59-0400 Body surface area Derived from formula 2.03 m2 Jhoan Roberto Work Phone: [facility] A2470 DO Work Phone: 08-06-2021 13:59-0400 Body temperature 95.1 [degF] Jhoan Roberto Work Phone: [facility] A[facility]70 DO Work Phone: 08-06-2021 13:59-0400 Body weight 91.85 kg Jhoan Roberto Work Phone: [facility] A[facility]70 DO Work Phone: 08-06-2021 13:59-0400 Diastolic blood pressure 73 mm[Hg] Jhoan Roberto Work Phone: [facility] A[facility]70 DO Work Phone: 08-06-2021 13:59-0400 Heart rate 105 /min Jhoan Roberto Work Phone: [facility] A[facility]70 DO Work Phone: 08-06-2021 13:59-0400 Respiratory rate 18 /min Jhoan Roberto Work Phone: [facility] A[facility]70 DO Work Phone: 08-06-2021 13:59-0400 Systolic blood pressure 105 mm[Hg] Jhoan Roberto Work Phone: [facility] A[facility]70 DO Work Phone: 06-13-2021 11:41-0500 Body mass index (BMI) [Ratio] 31.64 kg/m2 Jhoan Roberto Work Phone: [facility] A[facility]70 [...] 112 /min Jhoan Roberto Work Phone: [facility] A[facility]70 DO Work Phone: 06-13-2021 11:41-0500 SaO2% (BldA) [Mass fraction] 98 % Jhoan Roberto Work Phone: [facility] A2470 DO Work Phone: 06-13-2021 11:41-0500 Systolic blood pressure 121 mm[Hg] Jhoan Roberto Work Phone: [facility] A[facility]70 DO Work Phone: 06-13-2021 11:41-0500 0 1 Jhoan Roberto Work Phone: [facility] A2470 DO Work Phone: Comment on above: [employer] 05-31-2021 09:37-0500 Diastolic blood pressure 88 mm[Hg] Jhoan Roberto Work Phone: [facility]-Internal Medicine 3201 Work Phone: 05-31-2021 09:37-0500 Systolic blood pressure 136 mm[Hg] Jhoan Roberto Work Phone: [facility] 3201 Work Phone: 05-28-2021 15:51-0500 Body mass index (BMI) [Ratio] 32.11 kg/m2 Jhoan Roberto Work Phone: [facility] Work Phone: 05-28-2021 15:51-0500 Body surface area Derived from formula 2.04 m2 Jhoan Roberto Work Phone: [facility] 3201 Work Phone: 05-28-2021 15:51-0500 Body temperature 97.3 [degF] Jhoan Roberto Work Phone: [facility]-Internal Medicine 3201 Work Phone: 05-28-2021 15:51-0500 Body weight 92.99 kg Jhoan Roberto [facility] Work Phone: 05-28-2021 15:51-0500 Diastolic blood pressure 100 mm[Hg] Jhoan Ch Felisa Work Phone: [facility] Work Phone: 05-28-2021 15:51-0500 Heart rate 118 /min Jhoan Roberto Work Phone: [facility] Work Phone: 05-28-2021 15:51-0500 SaO2% (BldA) [Mass fraction] 97 % Jhoan Roberto Work Phone: [facility] Work Phone: 05-28-2021 15:51-0500 Systolic blood pressure 150 mm[Hg] Jhoan Roberto Work Phone: [facility] Work Phone: 05-11-2021 04:38-0500 Diastolic blood pressure 88 mm[Hg] Jhoan Roberto Work Phone[facility] 3201 Work Phone: 05-11-2021 04:38-0500 Systolic blood pressure 138 mm[Hg] Jhoan Roberto Work Phone: [facility] Work Phone: 05-09-2021 16:17-0500 Body mass index (BMI) [Ratio] 31.97 kg/m2 Jhoan Roberto Work Phone[facility] 3201 Work Phone: 05-09-2021 16:17-0500 Body surface area Derived from formula 2.04 m2 Jhoan Roberto Work Phone: [facility] 3201 Work Phone: 05-09-2021 16:17-0500 Body temperature 97.7 [degF] Jhoan Roberto [facility] Phone[facility] Work Phone: 05-09-2021 16:17-0500 Body weight 92.59 kg Jhoan Roberto Work Phone[facility] Work Phone: 05-09-2021 16:17-0500 Diastolic blood pressure 98 mm[Hg] Jhoan Roberto Work Phone: [facility] Work Phone: 05-09-2021 16:17-0500 Heart rate 105 /min Jhoan Roberto Work Phone[facility] Work Phone: 05-09-2021 16:17-0500 Respiratory rate 16 /min Jhoan Roberto Work Phone[facility] Work Phone: 05-09-2021 16:17-0500 SaO2% (BldA) [Mass fraction] 96 % Jhoan Roberto Work Phone[facility] Work Phone: 05-09-2021 16:17-0500 Systolic blood pressure 144 mm[Hg] Jhoan Roberto [facility] Phone[facility] Work Phone: 01-10-2021 09:35-0400 Diastolic blood pressure 74 mm[Hg] Jhoan Roberto Work Phone[facility] Work Phone: 01-10-2021 09:35-0400 Systolic blood pressure 134 mm[Hg] Jhoan Roberto Work Phone: [facility] Work Phone: 01-07-2021 10:29-0400 Body height 170.18 cm Jhoan Roberto Work Phone[facility] Work Phone: 01-07-2021 10:29-0400 Body mass index (BMI) [Ratio] 31.86 kg/m2 Jhoan Roberto Work Phone[facility] 3201 Work Phone: 01-07-2021 10:290400 Body surface area Derived from formula 2.04 m2 Jhoan Roberto Work Phone[facility] Work Phone: 01-07-2021 10:29-0400 Body temperature 208.4 [degF] Jhoan Roberto Work Phone[facility] Work Phone: 01-07-2021 10:29-0400 Body weight 92.26 kg Jhoan Roberto [facility] 3201 Work Phone: 01-07-2021 10:29-0400 Diastolic blood pressure 98 mm[Hg] Jhoan Roberto Work Phone[facility] Work Phone: 01-07-2021 10:29-0400 Heart rate 112 /min Jhoan Roberto Work Phone[facility] Work Phone: 01-07-2021 10:29-0400 SaO2% (BldA) [Mass fraction] 95 % Jhoan Roberto Work Phone: [facility] Work Phone: 01-07-2021 10:29-0400 Systolic blood pressure 148 mm[Hg] Jhoan Roberto Work Phone: [facility] Medicine 3201 Work Phone: 10-17-2019 11:04-0400 BMI (Body Mass Index) 33.22 kg/m2 [facility] Work Phone: 10-17-2019 11:04-0400 Body Temperature 99.4 [degF] [facility] Work Phone: 10-17-2019 11:04-0400 Body weight 96.22 kg [facility]hoan [facility] Work Phone: 10-17-2019 11:04-0400 BP Diastolic 80 mm[Hg] [facility]hoan Felisa [facility] Work Phone: 10-17-2019 11:04-0400 BP Systolic 130 mm[Hg] Jhoan Contimilo [facility] Medicine-Internal Medicine Work Phone: 10-17-2019 11:04-0400 BSA (Body Surface Area) 2.07 m2 [facility]hoan [facility] Work Phone: 10-17-2019 11:04-0400 Height 170.18 cm [facility]an [facility] Work Phone: 10-17-2019 11:04-0400 Pulse (Heart Rate) 89 /min [facility]hoan [facility]ilo [facility] Work Phone: 10-17-2019 11:04-0400 Respiratory Rate 15 /min [facility]hoan [facility]ilo [facility] Medicine Work Phone: 1970 00:00-0500 >na< Huong Landis Dept. of Dermatology Encounters Encounter Date Encounter Type Care Provider Facility Start: 11-23-2023 End: 11-23-2023 Emergency department patient visit DE KARYNA MERIDA [facility] Start: 11-04-2023 ambulatory [facility] Start: 10-29-2023 End: 10-29-2023 ambulatory [facility] Start: 10-26-2023 End: 10-26-2023 ambulatory NEGAR MICHELLE Facility:[facility] Start: 10-23-2023 End: 10-23-2023 [facility] Negar ELIAS Work Phone: Psychiatry Comment on above: Alcohol use disorder , severe, dependence (HCC) (Primary Dx) Start: 10-16-2023 End: 10-16-2023 Emergency department patient visit [facility] Facility:[facility] Start: 10-15-2023 End: 10-20-2023 Evaluation and management of inpatient TOD WONG Facility:[facility] Start: 10-15-2023 [facility] Start: 10-15-2023 ambulatory [facility] Comment on above: Detoxification Start: 10-15-2023 End: 10-15-2023 Emergency department patient visit EVETTE SANTOS MD Facility:[facility] Start: 10-05-2023 End: 10-05-2023 ambulatory [facility] Facility:[facility] Start: 10-05-2023 End: 10-05-2023 Patient encounter procedure Kelly Ames APRN.CNP Work Phone: Obstetrics/Gynecology Comment on above: Encounter for gyneco logical examination (general) (routine) without abnormal findings (Primary Dx); Encounter for screening mammogram for malignant neoplasm of breast Start: 10-05-2023 End: 10-05-2023 Patient encounter status Kelly Ames APRN.CNP Work Phone: [facility] Work Phone: Start: 09-30-2023 End: 09-30-2023 Office outpatient visit 15 minutes Huong Landis MD Work Phone: [facility] Comment on above: Melanocytic nevus, u nspecified location (Primary Dx); Hemangioma of skin; Lentigo; Seborrheic keratosis; Encounter for screening for malignant neoplasm of skin Start: 09-30-2023 End: 09-30-2023 ambulatory HUONG E [facility] Ambulatory Start: 09-26-2023 End: 09-26-2023 Subsequent hospital visit by physician Geraldo [id number] Ultrasound [facility] Comment on above: Gall bladder polyp Start: 09-26-2023 End: 09-26-2023 ambulatory [facility] Start: 09-25-2023 End: 09-25-2023 ambulatory [facility] Start: 09-25-2023 End: 09-25-2023 Office outpatient visit 40 minutes Jhoan Roberto MD Work Phone: [facility] Internal Medicine Comment on above: Essential hypertensi on with goal blood pressure less than 130/85 (Primary Dx); Alcoholism (Multi); Low vitamin D level; Prediabetes; Elevated LFTs; Abdominal pain, RUQ (right upper quadrant); Reactive depression; Memory changes; Dyspepsia; Spasm of muscle of lower back; Hyponatremia; Neutropenia, unspecified type (CMS-HCC); Thrombocytopenia (CMS-HCC) Start: 09-25-2023 End: 09-25-2023 ambulatory [facility] Ambulatory Start: 05-24-2023 Documentation procedure Mammog [place] Coordinator [facility] Start: 05-24-2023 Letter encounter Mammography Coordinator [facility] Ancillary Area Not Listed Start: 05-22-2023 ambulatory KELLY AMES Faci lity:[facility] Start: 05-22-2023 End: 05-22-2023 Subsequent hospital visit by physician [facility] [place] [address] Work Phone: Mammography Comment on above: Encounter for screen ing mammogram for malignant neoplasm of breast [Z12.31] Start: 05-13-2023 End: 05-14-2023 ambulatory [facility] Start: 05-13-2023 End: 05-13-2023 Subsequent hospital visit by physician Beryl Alejandra X-Ray 3 [facility] Comment on above: Closed nondisplaced fracture of base of fifth metacarpal bone of left hand, initial encounter Start: 04-22-2023 End: 04-23-[address] [facility] Start: 04-09-2023 End: 04-10-2023 ambulatory [facility] Start: 04-09-2023 End: 04-09-2023 Office outpatient new 30 minutes Jarod Ghosh MD Work Phone: [facility] Comment on above: Closed nondisplaced fracture of base of fifth metacarpal bone of left hand, initial encounter Start: 04-06-2023 End: 04-07-2023 ambulatory [facility] [facility] Start: 03-23-2023 End: 03-25-2023 Patient encounter procedure Danielgordo Holguin LICIN Work Phone: [facility] Comment on above: Alcoholism (CMS/HCC) (Primary Dx) Start: 03-18-2023 End: 03-18-2023 ambulatory [facility] Ambulatory Start: 03-14-2023 End: 03-14-2023 ambulatory [facility] Start: 03-06-2023 End: 03-06-2023 Office outpatient visit 15 minutes Jhoan Roberto MD Work Phone: [facility] Comment on above: Dyslipidemia, goal L DL below 100 (Primary Dx); Migraine with aura and without status migrainosus, not intractable; Essential hypertension with goal blood pressure less than 130/85; Fatty liver; Prediabetes Start: 03-06-2023 End: 03-06-2023 ambulatory [facility] Ambulatory Start: 03-04-2023 End: 03-04-2023 Office outpatient visit 25 minutes Huong Landis MD Work Phone: [facility] Comment on above: Acne vulgaris (Prima ry Dx); Seborrheic keratosis Start: 03-04-2023 End: 03-04-2023 ambulatory HUONG LANDIS [facility] Ambulatory Start: 02-23-2023 End: 02-23-2023 Subsequent hospital visit by physician Milton Farrell MD Work Phone: [facility] OR Comment on above: Encounter for screen ing for malignant neoplasm of colon; Benign neoplasm of colon, unspecified part of colon Start: 02-23-2023 End: 02-23-2023 ambulatory MILTON FARRELL [facility] Start: 01-23-2023 End: 01-23-2023 ambulatory KENZIE ELIZONDO [facility] Start: 01-23-2023 End: 01-23-2023 Subsequent hospital visit by physician Geraldo [id number] [facility] Comment on above: Other polyneuropathy Start: 12-25-2022 Chart Update Jhoan Roberto Work Phone: [facility] Work Phone: Start: 12-24-[address] Jhoan Silva acility:[id number] Start: 12-04-2022 ambulatory MD CHAR JOHNSON Facility:[id number] Start: 12-04-2022 Office outpatient vi sit 15 minutes Jhoan Roberto Work Phone: [facility] Work Phone: Start: 11-26-2022 ambulatory Alfredo ROBERTO Facility:[id number] Start: 11-26-2022 Patient encounter procedure Jhoan Roberto Work Phone: [facility] Work Phone: Start: 11-20-2022 NPV, Provider: Char Johnson, Status: Pen, Time: 3:30 PM Jhoan Roberot Work Phone: [facility] Work Phone: Start: 11-19-2022 ambulatory Alfredo ROBERTO Facility:[id number] Start: 11-19-2022 Patient encounter procedure Jhoan Roberto Work Phone: [facility] Work Phone: Start: 11-19-2022 [email or web address], Provider : Rocael Alicea, Status: Pen, Time: 7:45 AM Jhoan Roberto Work Phone: [facility]Uypqtfvc[facility]ie[facility]mzy[facility] Work Phone: Start: 11-17-2022 Office outpatient ne w 45 minutes Jhoan Roberto Work Phone: [facility]Pwypmykxn-Vqppicpn [facility] [address] Work Phone: Start: 11-17-2022 ambulatory UNKNOWN UNKNOWN Facilit y:[id number] Start: 11-05-2022 Patient encounter procedure Jhoan Roberto Work Phone: [facility] Work Phone: Start: 11-05-2022 ambulatory M.Kelsea ROBERTO Facility:[id number] Start: 10-17-2022 End: 10-17-2022 Office outpatient visit 25 minutes Jhoan Roberto MD Work Phone: [facility] Comment on above: Essential hypertensi on with goal blood pressure less than 130/85 (Primary Dx); Dyslipidemia, goal LDL below 100; Abdominal pain, RUQ (right upper quadrant); Fatty liver; Adenomatous polyp of colon, unspecified part of colon; Prediabetes; Abdominal wall pain in right upper quadrant Start: 10-15-2022 ambulatory M.DLola ROBERTO Facility:[id number] Start: 10-15-2022 Patient encounter procedure Jhoan Roberto Work Phone: [facility] Work Phone: Start: 10-08-2022 ambulatory M.Kelsea ROBERTO Facility:[id number] Start: 10-08-2022 Patient encounter procedure Jhoan Roberto Work Phone: [facility] Work Phone: Start: 10-01-2022 ambulatory M.Kelsea ROBERTO Facility:[id number] Start: 10-01-2022 Patient encounter procedure Jhoan Roberto Work Phone: [facility] Work Phone: Start: 09-24-2022 ambulatory M.D. JHOAN MARTINEZ FELISA Facility:[id number] Start: 09-24-2022 Patient encounter procedure Jhoan Ch Felisa Work Phone: [facility] Work Phone: Start: 09-17-[address] Jhoan Silva acility:[id number] Start: 09-10-2022 ambulatory M.D. JHOAN CERNA MICHELLE FELISA Facility:[id number] Start: 08-27-2022 Patient encounter procedure Jhoan Ch Felisa Work Phone: [facility] Work Phone: Start: 08-27-2022 ambulatory M.D. JHOAN SANDRA MICHELLE FELISA Facility:[id number] Start: 08-20-2022 Patient encounter procedure Jhoan Ch Felisa Work Phone: [facility] Work Phone: Start: 08-20-2022 ambulatory M.D. JHOAN MARTINEZ FELISA Facility:[id number] Start: 08-16-2022 Refill Kelly rose APRN.CATARACT LENS GENERATOR Work Phone: Obstetrics/Gynecology Comment on above: Refill Request Start: 08-13-2022 Patient encounter procedure Jhoan Ch Felisa Work Phone: [facility] Work Phone: Start: 08-13-2022 ambulatory M.D. JHOAN ROBERTO Facility:[id number] Start: 08-06-2022 ambulatory M.D. JHOAN CERNA MICHELLE FELISA Facility:[id number] Start: 07-18-2022 ambulatory M.D. JHOAN CERNA MICHELLE FELISA Facility:[id number] Start: 07-18-2022 Patient encounter procedure Jhoan Ch Felisa Work Phone: [facility] Work Phone: Start: 07-09-2022 ambulatory M.D. JHOAN ROBERTO Facility:[id number] Start: 07-09-2022 Patient encounter procedure Jhoan Ch Felisa Work Phone: [facility] Work Phone: Start: 07-07-2022 End: 07-07-2022 Patient encounter procedure Kelly Ames APRN.CATARACT LENS GENERATOR Work Phone: Obstetrics/Gynecology Comment on above: Encounter for gyneco logical examination (general) (routine) without abnormal findings (Primary Dx); Encounter for screening mammogram for malignant neoplasm of breast Start: 07-07-2022 End: 07-07-2022 Patient encounter status Kelly Domingo Ames APRN.CATARACT LENS GENERATOR Work Phone: Obstetrics/Gynecology Start: 07-02-2022 ambulatory M.D. JHOAN ROBERTO Facility:[id number] Start: 07-02-2022 Patient encounter procedure [facility]hoan Roberto [facility] Work Phone: Start: 06-25-2022 [id number], Provider : Rocael Alicea, Status: Pen, Time: 2:45 PM Jhoan Roberto Work Phone: [facility] Medicine 3201 Work Phone: Start: 06-23-2022 AUDIT Jhoan Roberto Work Phone: [facility] Medicine 3201 Work Phone: Start: 06-23-2022 Rx Renewal Jhoan Roberto Work Phone: [facility] Medicine 3201 Work Phone: Start: 06-18-2022 Patient encounter procedure [facility]hoan Roberto [facility] Work Phone: Start: 06-18-2022 ambulatory M.D. JHOAN ROBERTO Facility:[id number] Start: 06-11-2022 ambulatory M.D. JHOAN ROBERTO Facility:[id number] Start: 06-11-2022 Patient encounter procedure Jhoan Roberto Work Phone: [facility] Work Phone: Start: 06-04-2022 ambulatory M.D. JHOAN ROBERTO Facility:[id number] Start: 06-04-2022 Patient encounter procedure Jhoan Roberto Work Phone: [facility] Work Phone: Start: 06-04-2022 Office outpatient vi sit 15 minutes Huong Landis Dept. of Dermatology Start: 05-28-2022 AUDIT Jhoan Roberto Work Phone: [facility] Internal Medicine-Internal Medicine 3201 Work Phone: Start: 05-26-2022 ambulatory M.D. JHOAN ROBERTO Facility:[id number] Start: 05-21-2022 Patient encounter procedure [facility]hoan Roberto [facility] Work Phone: Start: 05-21-2022 ambulatory M.D. JHOAN ROBERTO Facility:[id number] Start: 05-16-2022 [id number], Provider : Veronica Moore, Status: Pen, Time: 7:45 AM Jhoan Roberto Work Phone: [facility] Work Phone: Start: 04-25-2022 Refill Kelly rose APRN.CATARACT LENS GENERATOR Work Phone: Obstetrics/Gynecology Comment on above: Refill Request Start: 04-07-2022 Telephone encounter Jhoan vazquez Work Phone: [facility] Internal Medicine-Internal Medicine 3201 Work Phone: Start: 03-28-2022 Periodic preventive med est patient 40-64yrs Jhoan Roberto Work Phone: [facility] Internal Medicine-Internal Medicine 3201 Work Phone: Start: 03-28-[address] Jhoan Silva acility:[id number] Start: 03-28-2022 Chart Update Jhoan Roberto [facility] Work Phone: Start: 03-07-2022 AUDIT Jhoan Roberto [facility] Work Phone: Start: 01-30-2022 Chart Update Jhoan Roberto [facility] Phone[facility] [address] Work Phone: Start: 01-29-2022 ECHO, Provider: TYLER GARCIAMG CARD, Status: Pen, Time: 9:00 AM Jhoan Roberto Work Phone: [facility] 3201 Work Phone: Start: 01-29-2022 NURSEVST, Provider: NURSEILENE CP JE, Status: Pen, Time: 8:15 AM Jhoan Roberto Work Phone: [facility] 3201 Work Phone: Start: 01-29-[address] Jhoan Silva acility:[id number] Start: 01-27-2022 AUDIT Jhoan Roberto Work Phone: [facility] 3201 Work Phone: Start: 01-08-2022 End: 01-08-2022 Subsequent hospital visit by physician Diagnostic Mammo 1 [place] Work Phone: Mammography Start: 01-02-2022 AUDIT Jhoan Roberto [facility] [address] Work Phone: Start: 01-02-2022 Chart Update Jhoan Roberto Work Phone[facility] [address] Work Phone: Start: 01-01-2022 Office outpatient vi sit 25 minutes Jhoan Roberto [facility] [address] Work Phone: Start: 10-18-2021 End: 10-18-2021 Patient encounter procedure Evette Batista OD Work Phone: Ophthalmology Comment on above: Abrasion of left cor thais, initial encounter (Primary Dx) Start: 09-18-2021 FUV, Provider: Jhoan Roberto, Status: Maverick, Time: 3:00 PM Jhoan Roberto [facility] [address] Work Phone: Start: 09-18-2021 Office outpatient vi sit 25 minutes Jhoan Roberto [facility] [address] Work Phone: Start: 09-18-2021 Patient encounter procedure Jhoan Roberto [facility] [address] Work Phone: Start: 09-17-2021 Rx Renewal Jhoan Roberto [facility] Work Phone: Start: 09-12-2021 Chart Update Jhoan Roberto Work Phone: [facility] [address] Work Phone: Start: 09-02-2021 Current tobacco non- user cad cap copd pv dm Jhoan Roberto Work Phone: [facility] [id number] DO Work Phone: Start: 06-13-2021 Current tobacco non- user cad cap copd pv dm Jhoan Roberto Work Phone: [facility] [id number] DO Work Phone: Start: 06-13-2021 FUV, Provider: Selwyn Bell, Status: Maverick, Time: 11:30 AM Jhoan Roberto [facility] Work Phone: Start: 06-12-2021 Telephone encounter Jhoan vazquez Work Phone: [facility] Medicine 3201 Work Phone: Start: 05-30-2021 Chart Update Jhoan Rboerto [facility] Phone: [facility] Work Phone: Start: 05-28-2021 Office outpatient vi sit 40 minutes Jhoan Roberto [facility] Work Phone: Start: 05-28-2021 Patient encounter procedure Jhoan Roberto Work [facility] Work Phone: Start: 05-24-2021 Chart Update Jhoan Roberto [facility] Phone[facility] Work Phone: Start: 05-10-2021 Telephone encounter Jhoan vazquez Work [facility]: [facility] Work Phone: Start: 05-09-2021 Office outpatient vi sit 25 minutes Jhoan Roberto [facility] Work Phone: Start: 02-28-2021 Office outpatient vi sit 15 minutes Huong Landis Dept. of Dermatology Start: 01-09-2021 Telephone encounter Jhoan vazquez [facility] Work Phone: Start: 01-07-2021 AUDIT Jhoan Roberto [facility] Phone[facility] Work Phone: Start: 01-07-2021 Patient encounter procedure Jhoan Roberto Work Phone: [facility] 3201 Work Phone: Start: 01-07-2021 Periodic preventive med est patient 40-64yrs Jhoan Contimilo Work Phone: [facility] 3201 Work Phone: Start: 01-04-2021 Chart Update Jhoan Contimilo [facility]: [facility] [address] Work Phone: Start: 01-03-2021 Chart Update Jhoan Ch Felisa Work Phone: [facility] 3[address] Work Phone: Start: 12-22-2020 Rx Renewal Jhoan Ch Felisa [facility] 3[address] Work Phone: Start: 03-01-2020 Office outpatient vi sit 15 minutes Huong [place] [facility] Start: 03-01-2020 Office outpatient vi sit 25 minutes [facility] Dept[facility] of Dermatology Start: 10-17-2019 Patient encounter procedure Jhoan Roberto [facility] Medicine-Internal Medicine Work Phone: Start: 03-22-2019 Patient encounter procedure Jhoan [facility] Work Phone: Start: 01-06-2019 Patient encounter procedure Jhoan Roberto TV-Ujsszwcduvcri-Rbwal moris B102 Work Phone: Start: 11-06-2018 Patient encounter procedure Jhoan Eyimlo NT-Ruqsstsswtarf-Lzrrw moris B102 Work Phone: Start: 10-29-2018 Patient encounter procedure Jhoan Eyre IB-Lcvzcjpcrpinr-Famjh moris B102 Work Phone: Start: 10-20-2018 Patient encounter procedure Jhoan Roberto [place]-Zlqihlakaqohk-Ukgrt moris B102 Work Phone: Start: 09-16-2018 Patient encounter procedure Jhoan COTAAN-Iihhowwsbascw-Qwams moris B102 Work Phone: Start: 02-08-2018 Patient encounter procedure Jhoan COTAKE-Dnmoccbvjmhgk-Fiafj moris B102 Work Phone: Start: 09-16-2017 Patient encounter procedure Jhoan COTAWV-Sbfwkalrhqaqr-Pcwgb moris B102 Work Phone: Start: 08-06-2017 Patient encounter procedure Jhoan COTADO-Dksupyoqcsjua-Yqrgb moris B102 Work Phone: Start: 02-02-2017 Patient encounter procedure Jhoan COTASF-Xfhutjrlcqehs-Pxpgm moris B102 Work Phone: Start: 10-11-2015 [facility] Start: 06-28-2015 Office outpatient ne w [facility] Start: 06-28-2015 Office outpatient vi sit [facility] Patient encounter status Jhoan Roberto Work Phone: [facility]-Internal Medicine 3201 Work Phone: Procedures [...] - S mino or Plasma Daniel Holguin [facility] Work Phone: Start: 02-23-2023 DISCHARGE PATIENT JHOAN FELISA Start: 02-23-2023 SURGICAL PATHOLOGY EXAM JHOAN ROBERTO Start: 02-23-2023 Colonoscopy w/biopsy single/multiple Jhoan Roberto MD Work Phone: Start: 02-23-2023 Level iv surg pathol ogy gross&microscopic exam Milton Farrell MD Work Phone: Start: 02-23-2023 Colonoscopy [facility] Start: 01-23-2023 EMG AND NERVE CONDUCTION JHOAN ROBERTO Start: 01-23-2023 EMG AND NERVE CONDUCTION Kenzie Elizondo LABORER-CATARACT LENS GENERATOR Work Phone: Start: 01-29-2022 Echocardiography Jhoan Roberto Work Phone: Start: 01-08-2022 End: 01-08-2022 Digital breast tomosynthesis bilateral Kelly Ames LABORER.CATARACT LENS GENERATOR Work Phone: Start: 09-12-2021 Lipid 1996 panel [...] Start: 11-14-2015 Chemical Peel, Facial A drienmarisel [place] Start: 11-14-2015 Chemical Peel, Facial DCPFE Huong [...] LASIK surgery of both eyes Kelly O'Manning LABORER.CATARACT LENS GENERATOR Work Phone: History of Corneal L ASIK Bilateral Jhoan Roberto Comment on above: 2006; History of Wrist Surgery Bentley Roberto Comment on above: right wrist surg - c yst; Plan of Treatment Date Care Activity Detail Author Start: 01-30-2032 DTaP/Tdap/Td Vaccine s (3 - Td or Tdap) DTaP/Tdap/Td Vaccines (3 - Td or Tdap) [facility] Start: 01-30-2032 Urine microalbumin profile DTaP,Tdap,Td Vaccine (3 - Td or Tdap) [facility] Start: 10-15-2028 Lipid panel Lipid Screening [facility] Start: 03-14-2028 Lipid panel [facility] Start: 02-22-2028 Screening for malign ant neoplasm of colon [facility] Start: 10-28-2027 Screening for malign ant neoplasm of colon [facility] Start: 10-19-2026 Diabetes Screening Diabetes Screenin g [facility] Start: 10-14-2026 Diabetes Screening Diabetes Screenin g [facility] Start: 09-24-2026 Diabetes Screening Diabetes Screenin g [facility] Start: 09-12-2026 Lipid panel Lipid Panel [facility] Start: 03-14-2026 Diabetes mellitus screening Diabetes Screening [facility] Start: 03-14-2026 Diabetes Screening Diabetes Screenin g [facility] Start: 02-07-2026 HPV TESTING HPV TESTING [facility] Start: 02-07-2026 PAP TESTING PAP TESTING [facility] Start: 02-07-2026 Screening for malign ant neoplasm of cervix [facility] Start: 03-27-2025 Diabetes mellitus screening Diabetes Screening [facility] Start: 10-05-2024 End: 10-05-2024 Patient encounter procedure 10/05/2024 3:30 PM EDT Office Visit [facility] [address] [phone] Huong Landis MD [address] [place] [address] [facility] Start: 10-04-2024 BP Controlled (<130/80) BP Controlle d (<130/80) [facility] Start: 10-04-2024 Screening for malign ant neoplasm of cervix Cervical Cancer Screening [facility] Start: 05-22-2024 Screening for malign ant neoplasm of breast [facility] Start: 03-21-2024 End: 03-21-2024 Patient encounter procedure 03/21/2024 3:30 PM EST Office Visit [facility] Medicine [address] [facility] [address] [place] [address] Jhoan Roberto MD [address] [facility], [address] [place] [address] [facility] Start: 03-19-2024 Yearly Adult Physical Yearly Adult P hysical [facility] Start: 03-14-2024 Hemoglobin A1c measurement Diabetes: Hemoglobin A1C [facility] Start: 02-24-2024 Screening for malign ant neoplasm of colon [facility] Start: 02-10-2024 End: 02-10-2024 Patient encounter procedure 02/10/2024 2:00 PM EDT Office Visit [facility] [address] [facility] 5th [place] [address] [place] [address] Department of Neurology/[place] [address] [facility] Start: 02-08-2024 Screening for malign ant neoplasm of cervix [facility] Start: 01-09-2024 DIABETES SCREEN DIABETES SCREEN [facility] Start: 01-07-2024 End: 01-07-2024 Patient encounter procedure 01/07/2024 3:30 PM EDT Office Visit [facility] [address] [facility] [address] [place] [address] Kenzie Elizondo, LABORER-CATARACT LENS GENERATOR [address] [facility], [address] [place] [address] [facility] Start: 12-20-2023 Influenza vaccination Influenza Vacc ine (#1) [facility] Start: 12-07-2023 End: 12-07-2023 Patient encounter procedure 12/07/2023 3:00 PM EDT Office Visit [facility] [address] [phone] Selwyn Bell DO [address] [place] [id number] [facility] Start: 11-05-2023 End: 11-05-2023 Patient encounter procedure 11/05/2023 1:20 PM EDT Office Visit [facility] [address] [facility] [address] [place] [phone] Sonia Abebe, LABORER-CATARACT LENS GENERATOR [address] Department of [place] [address] [facility] Start: 10-14-2023 End: 10-14-2023 Patient encounter procedure 10/14/2023 9:00 AM EDT Office Visit [facility] Medicine [address] [phone] Jhoan Roberto MD [address] [facility], [place] [id number] [facility] Start: 10-05-2023 End: 09-27-2024 CBC W Auto Differential panel - Blood CBC and Auto Differential Lab Routine Neutropenia, unspecified type (CMS-HCC) Thrombocytopenia (CMS-HCC) Expected: 10/05/2023 (Approximate), Expires: 09/27/2024 [facility] Service Area Work Phone: Comment on above: Expected: 10/05/2023 (Approximate), Expires: 09/27/2024 Start: 10-05-2023 End: 09-27-2024 Comprehensive metabolic 2000 panel - Serum or Plasma Comprehensive Metabolic Panel Lab Routine Elevated LFTs Expected: 10/05/2023 (Approximate), Expires: 09/27/2024 [facility] Work Phone: Comment on above: Expected: 10/05/2023 (Approximate), Expires: 09/27/2024 Start: 09-30-2023 End: 09-30-2023 Patient encounter procedure 09/30/2023 2:45 PM EDT Office Visit [facility] [address] [place] [address] Huong Landis MD [address] [place] [address] [facility] Start: 09-16-2023 End: 09-16-2023 Patient encounter procedure 09/16/2023 7:45 AM EDT Appointment [facility] [address] [place] [address] [facility] Start: 09-16-2023 End: 09-16-2023 Professional / ancillary services management 09/16/2023 7:45 AM EDT Ancillary Procedure [facility] [address] [place] [address] [facility] Start: 07-13-2023 End: 07-13-2023 Patient encounter procedure 07/13/2023 3:00 PM EDT Office Visit [facility] [address] [place] [address] Selwyn Bell DO [address] [place] [address] [facility] Start: 06-17-2023 End: 06-17-2023 Patient encounter procedure 06/17/2023 8:15 AM EST Office Visit [facility] [address] [place] [id number] Jarod Ghosh MD [address] [facility], [address] [place] [address], [place] [address] [facility] Start: 06-05-2023 End: 06-05-2023 Patient encounter procedure 06/05/2023 9:00 AM EST Office Visit [facility] [address] [place] [address] Selwyn Bell DO [address] [place] [address] [facility] Start: 06-04-2023 End: 06-04-2023 Patient encounter procedure 06/04/2023 3:30 PM EST Office Visit [facility] [address] [place] [address] Jhoan Roberto MD [address] [facility], [facility] [address] [place] [address] [facility] Start: 06-01-2023 End: 06-01-2023 Patient encounter procedure 06/01/2023 3:45 PM EST Office Visit [facility] [address] [place] [address] Huong Landis MD [address] [place] [address] [facility] Start: 05-25-2023 End: 05-25-2023 ambulatory 05/25/2023 3:00 PM EST Evaluation [facility] [address] [place] [address] Christen Ramon, OT [facility] Start: 04-22-2023 End: 04-22-2023 Patient encounter procedure 04/22/2023 4:00 PM EST Office Visit [facility] [address] [place] [id number] Jarod Ghosh MD [address] [facility], [address] [place] [address], [place] [address] [facility] Start: 04-20-2023 Behavioral Health Screening Behavioral Health Screening [facility] Start: 04-20-2023 Depression Assessment Depression Ass essment [facility] Start: 04-03-2023 FUV, Provider: Selwyn Bell, Status: Pen, Time: 8:30 AM FUV, Provider: Selwyn Bell, Status: Pen, Time: 8:30 AM [facility] Work Phone: Start: 03-27-2023 Hemoglobin A1c measurement Diabetes: Hemoglobin A1C [facility] Start: 03-18-2023 End: 03-18-2023 Patient encounter procedure 03/18/2023 2:00 PM EST Office Visit [facility] [address] [phone] Jhoan Roberto MD [address] [facility], [facility] [address] [place] [id number] [facility] Start: 03-06-2023 End: 03-06-2024 Comprehensive metabolic 2000 panel - Serum or Plasma Comprehensive Metabolic Panel Lab Routine Dyslipidemia, goal LDL below 100 Fatty liver Expected: 03/06/2023 (Approximate), Expires: 03/06/2024 [facility] Service Area Work Phone: Comment on above: Expected: 03/06/2023 (Approximate), Expires: 03/06/2024 Start: 03-06-2023 End: 03-06-2024 Hemoglobin A1c/Hemoglobin.total in Blood Hemoglobin A1C Lab Routine Prediabetes Expected: 03/06/2023 (Approximate), Expires: 03/06/2024 [facility] Work Phone: Comment on above: Expected: 03/06/2023 (Approximate), Expires: 03/06/2024 Start: 03-06-2023 End: 03-06-2024 Lipid 1996 panel - Serum or Plasma Lipid Panel Lab Routine Dyslipidemia, goal LDL below 100 Expected: 03/06/2023 (Approximate), Expires: 03/06/2024 [facility] Work Phone: Comment on above: Expected: 03/06/2023 (Approximate), Expires: 03/06/2024 Start: 03-06-2023 End: 03-06-2024 TSH with reflex to Free T4 if abnormal TSH with reflex to Free T4 if abnormal Lab Routine Dyslipidemia, goal LDL below 100 Expected: 03/06/2023 (Approximate), Expires: 03/06/2024 [facility] Work Phone: Comment on above: Expected: 03/06/2023 (Approximate), Expires: 03/06/2024 Start: 03-04-2023 End: 03-04-2023 Patient encounter procedure 03/04/2023 3:30 PM EST Office Visit [facility] [address] [phone] Huong Landis MD [address], [address] [address] [facility] Start: 03-03-2023 COVID-19 Vaccine (4 - Pfizer series) COVID-19 Vaccine (4 - Pfizer series) [facility] Start: 02-23-2023 JACE, Provider: Milton Farrell, Status: Pen, Time: 8:40 AM JACE, Provider: Milton Farrell, Status: Pen, Time: 8:40 AM [facility] Start: 01-23-2023 EMG, Provider: JOSEPHINE 1,NEURODIAG, Status: Pen, Time: 2:45 PM EMG, Provider: EMGFRANCHESKA 1,NEURODIAG, Status: Pen, Time: 2:45 PM -[facility] Work Phone: Start: 01-08-2023 Mammography MAMMOGRAM [facility] Start: 01-08-2023 Screening for malign ant neoplasm of breast Mammogram Screening [facility] Start: 12-19-2022 Influenza vaccination Influenza Vacc ine (#1) [facility] Start: 12-17-2022 PTFUADULT4, Provider : Rocael Alicea, Status: Pen, Time: 7:45 AM PTFUADULT4, Provider: Rocael Alicea, Status: Pen, Time: 7:45 AM [facility] Work Phone: Start: 12-10-2022 PTFUADULT4, Provider [...] Status: Pen, Time: 7:45 AM [facility] Work Phone: Start: 11-20-2022 NPV, Provider: Char Johnson, Status: Pen, Time: 3:30 PM NPV, Provider: Char Johnson, Status: Pen, Time: 3:30 PM [facility] Work Phone: Start: 11-19-2022 PTFUADULT4, Provider : Rocael Alicea, Status: Pen, Time: 7:45 AM PTFUADULT4, Provider: Rocael Alicea, Status: Pen, Time: 7:45 AM [facility] Work Phone: Start: 11-17-2022 VIRNPVHOME, Provider : Kenzie Elizondo, Status: Pen, Time: 8:30 AM VIRNPVHOME, Provider: Kenzie Elizonod, Status: Pen, Time: 8:30 AM [facility] Work Phone: Start: 11-13-2022 NPV, Provider: Char Johnson, Status: Pen, Time: 3:30 PM NPV, Provider: Char Johnson, Status: Pen, Time: 3:30 PM [facility] Work Phone: Start: 11-05-2022 PTFUADULT4, Provider : Rocael Alicea, Status: Pen, Time: 7:00 AM PTFUADULT4, Provider: Rocael Alicea, Status: Pen, Time: 7:00 AM [facility] Work Phone: Start: 10-29-2022 NPVGENERAL, Provider [...] Jhoan Roberto, Status: Pen, Time: 2:00 PM [facility] Phone: Start: 10-17-2022 End: 10-18-2023 Basic metabolic 2000 panel - Serum or Plasma Basic Metabolic Panel Lab Routine Prediabetes Expected: 10/17/2022 (Approximate), Expires: 10/18/2023 [facility] Work Phone: Comment on above: Expected: 10/17/2022 (Approximate), Expires: 10/18/2023 Start: 10-17-2022 End: 04-18-2024 Colonoscopy Colonoscopy Endoscopy Routine Adenomatous polyp of colon, unspecified part of colon Expected: 10/17/2022 (Approximate), Expires: 04/18/2024 [facility] Work Phone: Comment on above: Expected: 10/17/2022 (Approximate), Expires: 04/18/2024 Start: 10-17-2022 End: 10-18-2023 Hemoglobin A1c/Hemoglobin.total in Blood Hemoglobin A1C Lab Routine Prediabetes Expected: 10/17/2022 (Approximate), Expires: 10/18/2023 [facility] Service Area Work Phone: Comment on above: Expected: 10/17/2022 (Approximate), Expires: 10/18/2023 Start: 10-17-2022 End: 10-18-2023 Hepatic function 2000 panel - Serum or Plasma Hepatic Function Panel Lab Routine Fatty liver Expected: 10/17/2022 (Approximate), Expires: 10/18/2023 [facility] Work Phone: Comment on above: Expected: 10/17/2022 (Approximate), Expires: 10/18/2023 Start: 10-17-2022 End: 10-18-2023 US elastography parenchyma EG organ US elastography parenchyma EG organ Imaging Routine Fatty liver Expected: 10/17/2022, Expires: 10/18/2023 [facility] Work Phone: Comment on above: Expected: 10/17/2022 , Expires: 10/18/2023 Start: 10-15-2022 PTFUADULT4, Provider : Rocael Alicea, Status: Pen, Time: 7:45 AM PTFUADULT4, Provider: Rocael Alicea, Status: Pen, Time: 7:45 AM [facility] Work Phone: Start: 10-13-2022 FUV, Provider: Selwyn Bell, Status: Pen, Time: 3:30 PM FUV, Provider: Selwyn Bell, Status: Pen, Time: 3:30 PM [facility] Work Phone: Start: 10-08-2022 PTFUADULT4, Provider : Rocael Alicea, Status: Pen, Time: 7:45 AM PTFUADULT4, Provider: Rocael Alicea, Status: Pen, Time: 7:45 AM [facility] Work Phone: Start: 10-01-2022 PTFUADULT4, Provider [...] Jhoan Roberto, Status: Pen, Time: 1:30 PM [facility]-Internal Medicine [address] Work Phone: Start: 09-24-2022 PTFUADULT4, Provider : Rocael Alicea, Status: Pen, Time: 7:45 AM PTFUADULT4, Provider: Rocael Alicea, Status: Pen, Time: 7:45 AM [facility] Work Phone: Start: 08-27-2022 PTFUADULT4, Provider : Rocael Alicea, Status: Pen, Time: 7:00 AM PTFUADULT4, Provider: Rocael Alicea, Status: Pen, Time: 7:00 AM [facility] Work Phone: Start: 08-25-2022 FUV, Provider: Selwyn Bell, Status: Pen, Time: 11:30 AM FUV, Provider: Selwyn Bell, Status: Pen, Time: 11:30 AM [facility] Work Phone: Start: 08-20-2022 PTFUADULT4, Provider : Rocael Alicea, Status: Pen, Time: 7:00 AM PTFUADULT4, Provider: Rocael Alicea, Status: Pen, Time: 7:00 AM [facility] Work Phone: Start: 08-13-2022 PTFUADULT4, Provider : Rocael Alicea, Status: Pen, Time: 7:00 AM PTFUADULT4, Provider: Rocael Alicea, Status: Pen, Time: 7:00 AM [facility] Work Phone: Start: 08-06-2022 PTFUADULT4, Provider : Rocael Alicea, Status: Pen, Time: 7:45 AM PTFUADULT4, Provider: Rocael Alicea, Status: Pen, Time: 7:45 AM [facility] Work Phone: Start: 07-18-2022 PTFUADULT4, Provider : Rocael Alicea, Status: Pen, Time: 4:15 PM PTFUADULT4, Provider: Rocael Alicea, Status: Pen, Time: 4:15 PM [facility]: Start: 07-16-2022 NPVGENERAL, Provider : Wilbur Kraus, Status: Pen, Time: 8:00 AM NPVGENERAL, Provider: Wilbur Kraus, Status: Pen, Time: 8:00 AM [facility] Work Phone: Start: 07-14-2022 FUV, Provider: Selwyn Bell, Status: Pen, Time: 8:30 AM FUV, Provider: Selwyn Bell, Status: Pen, Time: 8:30 AM [facility] Work Phone: Start: 07-11-2022 FUV, Provider: Selwyn Bell, Status: Pen, Time: 9:00 AM FUV, Provider: Selwyn Bell, Status: Pen, Time: 9:00 AM [facility] Work Phone: Start: 07-09-2022 PTFUADULT4, Provider : Rocael Alicea, Status: Pen, Time: 2:45 PM PTFUADULT4, Provider: Rocael Alicea, Status: Pen, Time: 2:45 PM [facility] Work Phone: Start: 07-02-2022 PTFUADULT4, Provider : Rocael Alicea, Status: Pen, Time: 2:45 PM PTFUADULT4, Provider: Rocael Alicea, Status: Pen, Time: 2:45 PM [facility] Work Phone: Start: 06-25-2022 PTFUADULT4, Provider : [...] Status: Pen, Time: 10:30 AM [facility] Work Phone: Start: 05-23-2022 FUV, Provider: Selwyn Bell, Status: Pen, Time: 9:30 AM FUV, Provider: Selwyn Bell, Status: Pen, Time: 9:30 AM [facility]-Internal [facility] [address] Work Phone: Start: 05-14-2022 PTEVAADULT, Provider : Luzmaria Larsen, Status: Pen, Time: 11:00 AM PTEVAADULT, Provider: Luzmaria Larsen, Status: Pen, Time: 11:00 AM [facility] Work Phone: Start: 04-20-2022 DEPRESSION ASSESSMENT DEPRESSION ASS ESSMENT [facility] Start: 04-09-2022 COVID-19 Vaccine (4 - Booster for Pfizer series) COVID-19 Vaccine (4 - Booster for Pfizer series) [facility] Start: 03-28-2022 PHYSICAL, Provider: Jhoan Roberto, Status: Pen, Time: 11:00 AM PHYSICAL, Provider: Jhoan Roberto, Status: Pen, Time: 11:00 AM [facility] [address] Work Phone: Start: 03-24-2022 PHYSICAL, Provider: Jhoan Roberto, Status: Pen, Time: 7:45 AM PHYSICAL, Provider: Jhoan Roberto, Status: Pen, Time: 7:45 AM [facility] [address] Work Phone: Start: 03-19-2022 PHYSICAL, Provider: Jhoan Roberto, Status: Pen, Time: 8:30 AM PHYSICAL, Provider: Jhoan Roberto, Status: Pen, Time: 8:30 AM [facility] [address] Work Phone: Start: 03-07-2022 FUV, Provider: Selwyn Bell, Status: Pen, Time: 9:00 AM FUV, Provider: Selwyn Bell, Status: Pen, Time: 9:00 AM [facility] [address] Work Phone: Start: 03-03-2022 FUV, Provider: Selwyn eBll, Status: Pen, Time: 4:00 PM FUV, Provider: Selwyn Bell, Status: Pen, Time: 4:00 PM [facility] [id number] DO Work Phone: Start: 02-07-2022 Screening for malign ant neoplasm of cervix Cervical Cancer Screening [facility] Start: 01-29-2022 ECHO, Provider: MARYLOU HHVI,MG CARD, Status: Pen, Time: 9:00 AM ECHO, Provider: MARYLOU HHVI,MG CARD, Status: Pen, Time: 9:00 AM [facility] [address] Work Phone: Start: 01-29-2022 NURSEVST, Provider: NURSEILENE CP, Status: Pen, Time: 8:15 AM NURSEVST, Provider: ILENE COFFMAN CP, Status: Pen, Time: 8:15 AM [facility] Work Phone: Start: 12-19-2021 Influenza vaccination INFLUENZA (#1) [facility] Start: 11-01-2021 COVID-19 VACCINE (5 - Booster for Pfizer series) COVID-19 VACCINE (5 - Booster for Pfizer series) [facility] Start: 09-18-2021 FUV, Provider: Jhoan Roberto, Status: Pen, Time: 3:00 PM FUV, Provider: Jhoan Roberto, Status: Pen, Time: 3:00 PM [facility] [id number] DO Work Phone: Start: 09-02-2021 FUV, Provider: Selwyn Bell, Status: Pen, Time: 8:00 AM FUV, Provider: Selwyn Bell, Status: Pen, Time: 8:00 AM [facility] [id number] DO Work Phone: Start: 08-17-2021 Mammography MAMMOGRAM [facility] Start: 07-31-2021 FUV, Provider: Jhoan Roberto, Status: Pen, Time: 3:30 PM FUV, Provider: Jhoan Roberto, Status: Pen, Time: 3:30 PM [facility] [address] Work Phone: Start: 07-08-2021 FUV, Provider: Jhoan Roberto, Status: Pen, Time: 9:00 AM FUV, Provider: Jhoan Roberto, Status: Pen, Time: 9:00 AM [facility] [address] Work Phone: Start: 06-20-2021 NPV, Provider: Char Johnson, Status: Pen, Time: 8:00 AM NPV, Provider: Char Johnson, Status: Pen, Time: 8:00 AM [place] [id number] Work Phone: Start: 06-13-2021 FUVSLEEP, Provider: Selwyn Bell, Status: Pen, Time: 11:30 AM FUVSLEEP, Provider: Selwyn Bell, Status: Pen, Time: 11:30 AM [facility] [address] Work Phone: Start: 06-13-2021 NPV, Provider: Char Johnson, Status: Pen, Time: 8:00 AM NPV, Provider: Char Johnson, Status: Pen, Time: 8:00 AM [facility] Work Phone: Start: 05-28-2021 FUV, Provider: Jhoan Roberto, Status: Pen, Time: 3:30 PM FUV, Provider: Jhoan Roberto, Status: Pen, Time: 3:30 PM [place] [address] Work Phone: Start: 03-07-2021 NPVSLEEP, Provider: Selwyn Bell, Status: Pen, Time: 4:00 PM NPVSLEEP, Provider: Selwyn Bell, Status: Pen, Time: 4:00 PM [facility] Work Phone: Start: 01-07-2021 PHYSICAL, Provider: Jhoan Roberto, Status: Pen, Time: 10:30 AM PHYSICAL, Provider: Jhoan Roberto, Status: Pen, Time: 10:30 AM [place] [address] Work Phone: Start: 2020 SHINGRIX VACCINE (1 of 2) SHINGRIX VACCINE (1 of 2) [facility] Start: 08-09-2015 COLOGUARD (FIT-DNA) COLOGUARD (FIT-D NA) [facility] Start: 08-09-2015 Colonoscopy COLONOSCOPY [facility] Start: 08-09-2015 COLORECTAL CANCER SCREENING COLORECTAL CANCER SCREENING [facility] Start: 08-09-[address] COLONOGRAPHY [facility] Start: 08-09-2015 FECAL OCCULT BLOOD FECAL OCCULT BLOO D [facility] Start: 08-09-2015 LIPID SCREEN LIPID SCREEN [facility] Start: 08-09-2015 Screening for malign ant neoplasm of colon [facility] Start: 08-09-2015 SIGMOIDOSCOPY SIGMOIDOSCOPY [facility] Start: 08-09-1991 Screening for malign ant neoplasm of cervix HPV/Cotest [facility] Start: 1989 Hepatitis A Vaccines (1 of 2 - Risk 2-dose series) Hepatitis A Vaccines (1 of 2 - Risk 2-dose series) [facility] Start: 1989 Hepatitis B Vaccine (1 of 3 - 19+ 3-dose series) Hepatitis B Vaccine (1 of 3 - 19+ 3-dose series) [facility] Start: 1989 Hepatitis B Vaccines (1 of 3 - 19+ 3-dose series) Hepatitis B Vaccines (1 of 3 - 19+ 3-dose series) [facility] Start: 1989 Urine microalbumin profile DTAP,TDAP,TD (1 - Tdap) [facility] Start: 1988 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 keyshawn Disease Visit Annual PCP Team Chronic Disease Visit [facility] Start: 1988 Hepatitis C screening Hepatitis C Sc jennifer [facility] Start: 1982 Adult depression screening assessment DEPRESSION SCREENING [facility] Start: 1976 Pneumococcal Vaccine : Pediatrics (0 to 5 Years) and At-Risk Patients (6 to 64 Years) (1 - PCV) Pneumococcal Vaccine: Pediatrics (0 to 5 Years) and At-Risk Patients (6 to 64 Years) (1 - PCV) [facility] Start: 1976 Pneumococcal Vaccine : Pediatrics (0 to 5 Years) and At-Risk Patients (6 to 64 Years) (1 of 2 - PCV) Pneumococcal Vaccine: Pediatrics (0 to 5 Years) and At-Risk Patients (6 to 64 Years) (1 of 2 - PCV) [facility] Start: 08-09-1971 MMR Vaccines (1 of 1 - Standard series) MMR Vaccines (1 of 1 - Standard series) [facility] Start: 1970 HEPATITIS B (1 of 3 - 3-dose series) HEPATITIS B (1 of 3 - 3-dose series) [facility] Start: 1970 Hepatitis B Vaccine (1 of 3 - 3-dose series) Hepatitis B Vaccine (1 of 3 - 3-dose series) [facility] Start: 1970 Hepatitis B Vaccines (1 of 3 - 3-dose series) Hepatitis B Vaccines (1 of 3 - 3-dose series) [facility] Start: 1970 HIV screening HIV Screening [facility] Start: 1970 Screening for malign ant neoplasm of colon [facility] Start: 1970 Yearly Adult Physical Yearly Adult P hysical [facility] End: 11-03-2024 DBT Breast - bilateral screening CIERRA SCREENING W BRITTANI Radiology Routine Encounter for screening mammogram for malignant neoplasm of breast 1 Occurrences starting 10/05/2023 until 11/03/2024 [facility] Work Phone: Comment on above: 1 Occurrences starti ng 10/05/2023 until 11/03/2024 Drugs of abuse scree n W Reflex confirm panel - Urine Drug Screen, Urine With Reflex to Confirmation Lab Routine Alcoholism (CMS/HCC) Ordered: 03/20/2023 [facility] Service Area Work Phone: Comment on above: Ordered: 03/20/2023 Ethyl glucuronide [Presence] in Urine by Screen method Ethyl Glucuronide Screen To Confirm,U Lab Routine Alcoholism (CMS/HCC) Ordered: 03/20/2023 [facility] Work Phone: Comment on above: Ordered: 03/20/2023 End: 10-22-2024 ETHYL GLUCURONIDE UR SCR ETHYL GLUCURONIDE UR SCR Lab Routine Alcohol use disorder, severe, dependence (HCC) Once per week for 30 Occurrences starting 10/23/2023 until 10/22/2024 [facility] Comment on above: Once per week for 30 Occurrences starting 10/23/2023 until 10/22/2024 End: 08-06-2023 CIERRA SCREENING CIERRA SCREENING Radiology Routine Encounter for screening mammogram for malignant neoplasm of breast 1 Occurrences starting 07/07/2022 until 08/06/2023 [facility] Work Phone: Comment on above: 1 Occurrences starti ng 07/07/2022 until 08/06/2023 End: 08-06-2023 CIERRA SCREENING W BRITTANI CIERRA SCREENING W BRITTANI Radiology Routine Encounter for screening mammogram for malignant neoplasm of breast 1 Occurrences starting 07/07/2022 until 08/06/2023 [facility] Work Phone: Comment on above: 1 Occurrences starti ng 07/07/2022 until 08/06/2023 CIERRA SCREENING W BRITTANI CIERRA SCREENI NG W BRITTANI Radiology Routine Encounter for screening mammogram for malignant neoplasm of breast 05/22/2023 3:16 PM EST [facility] Work Phone: End: 10-22-2024 PAIN PANEL, UR QUANT PAIN PANEL, UR QUANT Lab Routine Alcohol use disorder, severe, dependence (HCC) Once per week for 30 Occurrences starting 10/23/2023 until 10/22/2024 [facility] Comment on above: Once per week for 30 Occurrences starting 10/23/2023 until 10/22/2024 PAP TEST PAP TEST Lab Roberto claudio Encounter for gynecological examination (general) (routine) without abnormal findings Ordered: 10/05/2023 [facility] Comment on above: Ordered: 10/05/2023 Surgical pathology study Surgical Pathology Exam Pathology and Cytology Timed Encounter for screening for malignant neoplasm of colon Benign neoplasm of colon, unspecified part of colon Release Upon Ordering for 1 Occurrences starting 02/23/2023 [facility] Service Area Work Phone: Comment on above: Release Upon Orderin g for 1 Occurrences starting 02/23/2023 End: 10-20-2024 TOXICOLOGY SCREEN, ROUTINE URINE TOXICOLOGY SCREEN, ROUTINE URINE Lab Routine Alcohol use disorder, severe, dependence (HCC) 30 Occurrences starting 10/23/2023 until 10/20/2024 [facility] Work Phone: Comment on above: 30 Occurrences start ing 10/23/2023 until 10/20/2024 End: 09-26-2023 US Abdomen [facility] Service Area Work Phone: Comment on above: Once for 1 Occurrenc es starting 09/26/2023 until 09/26/2023 [facility] Immunizations Immunization Date Immunization Notes Care Provider Jevon haynes 01-06-2023 Pfizer COVID-19 vaccine, Fall 2022, 12 years and older, (30mcg/0.3mL) Jhoan Roberto MD Work Phone: [facility] Work Phone: 01-02-2023 influenza, injectabl e, quadrivalent, preservative free Jhoan Roberto MD Work Phone: [facility] Work Phone: 01-02-2023 influenza virus vaccine, unspecified formulation Negar ELIAS Work Phone: [facility] 02-12-2022 Influenza, injectabl e, Madin Sidra Canine Kidney, preservative free, quadrivalent Jhoan Roberto Work Phone: [facility] [address] Work Phone: 02-12-2022 Pfizer COVID-19 Vac Bivalent 30 MCG/0.3ML Intramuscular Suspension Jhoan Roberto Work Phone: [facility] Internal [facility]-Internal Medicine 3201 Work Phone: 02-12-2022 influenza virus vaccine, unspecified formulation Jhoan Roberto MD Work Phone: [facility] Work Phone: 01-29-2022 tetanus toxoid, redu justen diphtheria toxoid, and acellular pertussis vaccine, adsorbed; Translations: [Tdap (Boostrix)] Jhoan Roberto Work Phone: [facility]-Internal Medicine 3201 Work Phone: Comment on above: Series: 09-06-2021 Comirnaty 30 MCG/0.3 ML Intramuscular Suspension Jhoan Roberto Work Phone: [facility] Internal [facility] 3201 Work Phone: 04-24-2021 zoster vaccine recombinant Jhoan Roberto Work Phone: [facility] Internal [facility] 3201 Work Phone: 02-23-2021 Pfizer-BioNTech COVID-19 Vacc 30 MCG/0.3ML Intramuscular Suspension Jhoan Roberto [facility] Work Phone: 01-30-2021 influenza, seasonal, injectable Jhoan Roberto Work Phone: [facility]-Internal Medicine 3201 Work Phone: 01-30-2021 zoster vaccine recombinant Jhoan Roberto [facility] Phone[facility] Work Phone: 07-27-2020 Pfizer-BioNTech COVID-19 Vacc 30 MCG/0.3ML Intramuscular Suspension Jhoan Roberto Work Phone[facility] Work Phone: 07-06-2020 Pfizer-BioNTech COVID-19 Vacc 30 MCG/0.3ML Intramuscular Suspension Jhoan Roberto Work Phone[facility] Work Phone: 03-12-2012 tetanus toxoid, redu justen diphtheria toxoid, and acellular pertussis vaccine, adsorbed; Translations: [Tdap (Adacel)] [facility] Comment on above: Series: 1970 pneumococcal conjuga te vaccine, 7 valent [facility] Payers Date Payer Category Payer Unknown * 2022 Unknown [id number] 2021 Private Health Insurance [facility] [id number] 2021-Present [phone] [address] [address] [place] [address] PPO [id number] 2021 Unknown [id number] 2016 Unknown MMO MMO [employer] [id number] 2016-Present [phone] [address] [place] [address] PPO [id number] 2016 Unknown [id number] 2014 Unknown 1970 Unknown [id number] 2.16.840.1.797787.3.579. 2.1067 1970 Unknown [id number] 2.16.840.1.472469.3.579. 2.1067 1970 Unknown [id number] 2.16.840.1.508047.3.579. 2.1067 1970 Unknown [id number] 2.16.840.1.095163.3.579. 2.1067 1970 Unknown [id number] 2.16.840.1.098554.3.579. 2.1067 1970 Unknown [id number] 2.16.840.1.382044.3.579. 2.1067 1970 Unknown [id number] 2.16.840.1.822563.3.579. 2.1067 1970 Unknown [id number] 2.16.840.1.211596.3.579. 2.1067 1970 Unknown [id number] 2.16.840.1.237261.3.579. 2.1067 1970 Unknown [id number] 2.16.840.1.282579.3.579. 2.1067 1970 Unknown [id number] 2.16.840.1.572044.3.579. 2.1067 1970 Unknown [id number] 2.16.840.1.979548.3.579. 2.1067 1970 Unknown [id number] 2.16.840.1.612358.3.579. 2.1067 1970 Unknown [id number] 2.16.840.1.526898.3.579. 2.1067 1970 Unknown [id number] 2.16.840.1.206841.3.579. 2.8 1970 Unknown [id number] 2.16.840.1.764570.3.579. 2.1067 1970 Unknown [id number] 2.16.840.1.863692.3.579. 2.8 1970 Unknown [id number] 2.16.840.1.491135.3.579. 2.1067 1970 Unknown [id number] 2.16.840.1.057625.3.579. 2.1067 1970 Unknown [id number] 2.16.840.1.663130.3.579. 2.1067 1970 Unknown [id number] 2.16840.1.091644.3.579. 2.356 1970 Unknown [id number] 2.840.1.853410.3.579. 2. 1970 Unknown [id number] 2.16840.1.799068.3.579. 2.356 1970 Unknown [id number] 2.840.1.710423.3.579. 2.356 1970 Unknown [id number] 2.16840.1.745175.3.579. 2. 1970 Unknown [id number] 2.840.1.869926.3.579. 2.356 1970 Unknown [id number] 2.16840.1.750690.3.579. 2.356 1970 Unknown [id number] 2.16.840.1.834941.3.579. 2.356 1970 Unknown [id number] 2.16.840.1.370211.3.579. 2.6 1970 Unknown [id number] 2.16840.1.051087.3.579. 2.6 1970 Unknown [id number] 2.16.840.1.069560.3.579. 2.1245 1970 Unknown [id number] 2.16.840.1.447893.3.579. 2.1245 1970 Unknown [id number] 2.16.840.1.307490.3.579. 2.1245 1970 Unknown [id number] 2.16.840.1.456287.3.579. 2.1245 1970 Unknown [id number] 2.16.840.1.756807.3.579. 2.1245 1970 Unknown [id number] 2.16.840.1.830866.3.579. 2.1243 1970 Unknown [id number] 2.16.840.1.964124.3.579. 2.1243 1970 Unknown [id number] 2.840.1.164134.3.579. 2.1243 1970 Unknown [id number] 2.840.1.352155.3.579. 2.1243 1970 Unknown [id number] 2.840.1.549951.3.579. 2.1243 1970 Unknown [id number] 2.16.840.1.931926.3.579. 2.1243 1970 Unknown [id number] 2.840.1.217199.3.579. 2.1244 1970 Unknown [id number] 2.16840.1.269682.3.579. 2.1244 1970 Unknown [id number] 2.16840.1.266079.3.579. 2.1244 1970 Unknown [id number] 2.16.840.1.649983.3.579. 2.1244 1970 Unknown [id number] 2.16.840.1.297927.3.579. 2.1244 1970 Unknown [id number] 2.16.840.1.920414.3.579. 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 of D ermatology Start: 1970 End: 1970 Sex Assigned At Female Dept. of Dermatolo gy Start: 01-30-2011 End: 07-07-2022 Tobacco smoking status NHIS Ex-smoker [facility] Start: 01-30-2011 End: 07-07-2022 Tobacco use and exposure Smokeless tobacco non-user [facility] Start: 10-18-2021 End: 10-16-2023 Alcohol intake Current drinker of alcohol (finding) [facility] Start: 01-05-2008 History SDOH Alcohol Comment social [facility] Start: 1970 Sex Assigned At Not on file C [facility] End: 04-20-2013 History of tobacco use Current smoker [facility] Start: 12-29-2021 End: 09-30-2023 Exposure to SARS-CoV-2 (event) Not sure [facility] Start: 07-07-2022 Tobacco Comment Social smoker once in a huge while [facility] Start: 02-17-2021 End: 04-20-2022 History of tobacco use Cigarette Smoker [facility] Work Phone: Start: 10-17-2022 End: 05-22-2023 Tobacco use panel [facility] Work Phone: Start: 02-17-2021 Tobacco smoking stat us NHIS Occasional tobacco smoker [facility] Work Phone: Start: 03-06-2023 Tobacco Comment I have a cigar ette every once in a while [facility] Work Phone: National Score (1-100), lower number is lower risk 52 [facility] NEGATED: Highlighted row - - [place] Work Phone: Goals Date Patient Goal Desired Activity /State Functional Status Date Assessment Result Facility NEGATED: Highlighted row Functional performance Functional status health issues are not documented Disease RB-Zzwzmmnjojovh-Nr reid [employer] Work Phone: Mental Status Date Assessment Result Facility NEGATED: Highlighted row Cognitive function [Interpretation] Cognitive status health issues are not documented Disease FS-Dxuupdowfpuzi-Uv reid [employer] Work Phone: Clinical Notes 03-22-2014 to 10-23-2023 Behavorial Health Intake - Terrance Hayes - 10/15/2023 10:49 AM EDTBehavorial Health Intake - Terrance Hayes - 10/15/2023 10:49 AM EDTPatieran Landis MD - 09/30/2023 2:45 PM EDT Note Date & Type Note Facility 10-23-2023 Note HNO ID: [id number] Author: NEGAR MICHELLE LISW Service: ? Author [...] visit. Either the patient or their legal business representative has been informed of the risks and benefits of -- and alternatives to -- treatment through a remote evaluation and consents to proceed with the evaluation remotely. IDENTIFYING INFORMATION: Duration of Interview: start time 8:45 AM and end time 9:35 AM REFERRAL SOURCE: step down from inpatient hospitalization. BENEFITS: Payor: [employer] Education / Plan: [employer] BH / Product Type: PPO / INFORMED CONSENT: Patient verbally consented to virtual evaluation. Patient and this global technical writer present during interview. PRECIPITATING PROBLEM(S): Patient reports [...] Ever Used: Ne (more content not included)... [facility] 10-20-2023 Note HNO ID: [id number] Author: BIN FUENTES MD Service: Neurology General [...] DATE: October 20, 2023 TIME: 12:27 PM [facility] 10-20-2023 Note HNO ID: [id number] Author: ZAKIA PEREZ MD Service: Clinical Cardiology [...] the setting of home alcohol withdrawal on [facility] protocol echocardiogram normal EKG unremarkable only [...] H PRN thiamine (more content not included)... [facility] 10-19-2023 Note HNO ID: [id number] Author: TOD WONG MD Service: General Internal [...] (FLONASE) 50 mcg/actuation nasal spray, Use 1 Stitzer in each nostril as needed., Disp: , [...] mg tab(s) (ZANAFLEX) (more content not included)... [facility] 10-19-2023 Note HNO ID: [id number] Author: BIN FUENTES MD Service: Neurology General [...] DATE: October 19, 2023 TIME: 8:25 AM [facility] 10-19-2023 Note HNO ID: [id number] Author: BIN FUENTES MD Service: Neurology General Author Type: Physician Type: Procedures Filed: 10/26/2023 15:27 Note Text: [facility] - Electroencephalogram EMELY CLEVELAND : 1970 AGE: 53 SEX: F CSN: [id number] HOSP C: Medical LOCATION: [facility] ATTENDING PHYSICIAN: Tod Wong M.D. DATE OF PROCEDURE: 10/19/2023 CLINICAL HISTORY: This is an EEG study for a 53-year-old white female with a past medical history significant for alcohol abuse who had been admitted to [facility] with event of transient loss of consciousness. [...] have been noted. Bin Fuentes M.D. Neurology [id number] /[id number] [facility] 10-18-2023 Note HNO ID: [id number] Author: BRANDY VARGAS APRN.CATARACT LENS GENERATOR Service: Hospital Medicine Author Type: Nurse Practitioner [...] Dispo: Home pending clinical clearance Brandy Vargas APRN.[facility] 10/18/23 9:38 PM [facility] 10-18-2023 Note HNO ID: [id number] Author: BUSHRA JACOBS MD Service: General Internal [...] which included preparing to see the patient, jnmv-hl-vwzd patient care, completing clinical documentation, obtaining and/or reviewing separately obtained history, performing a medically appropriate examination, counseling and educating the patient/family/caregiver, ordering medications, tests, or procedures, communicating with other HCPs (not separately reported), independently interpreting results (not separately reported), communicating results to the patient/family/caregiver, and care coordination (not separately reported). SIGNATURE: Bushra Jacobs MD DATE: October 18, 2023 [facility] 10-18-2023 Note HNO ID: [id number] Author: EVETTE HAGAN MD Service: Psychiatry Author Type: Resident Type: Progress Notes Filed: 10/18/2023 13:11 Note Text: CL FOLLOW UP - PSYCHIATRY CONSULTATION PROGRESS NOTE SERVICE DATE: 10/18/2023 SERVICE TIME: 10:08 AM Visit Type: In person PRESENT HISTORY: The patient is first seen resting in her hospital bed in [facility]. Notable labs from 10/17/2023 Elevated GGT = [...] (NORVASC) 5 mg ORAL DAILY Daniela, Rony, LABORER.CATARACT LENS GENERATOR 5 mg at 10/18/23 0836 escitalopram oxalate 20 mg tab(s) (LEXAPRO) 20 mg ORAL DAILY Stephanie Mejía APRN.CATARACT LENS GENERATOR 20 mg at 10/18/[address] 999 mg tab(s) (CAMPRAL) 999 mg ORAL BID Stephanie Mejía APRN.CATARACT LENS GENERATOR 999 mg at 10/18/23 0939 chlordiazePOXIDE 10 mg cap(s) (LIBRIUM) 10 mg ORAL QID Stephanie Mejía APRN.CATARACT LENS GENERATOR 10 mg at 10/18/23 0836 Followed by chlordiazePOXIDE 5 mg cap(s) (LIBRIUM) 5 mg ORAL QID Stephanie Mejía APRN.CATARACT LENS GENERATOR LORazepam 1 mg tab(s) (ATIVAN) 1 mg ORAL q 2 H PRN Stephanie Mejía APRN.CATARACT LENS GENERATOR 1 mg at 10/16/232024 Or LORazepam 2 mg (ATIVAN) 2 mg ORAL q 2 H PRN Stephanie Mejía APRN.CNP Or LORazepam 2 mg (ATIVAN) 2 mg ORAL q 1 H PRN Stephanie Mejía APRN.CATARACT LENS GENERATOR thiamine 100 mg tab(s) (VITAMIN B1) 100 mg ORAL/FEEDING TUBE TID Stephanie Mejía APRN.CATARACT LENS GENERATOR 100 mg at 10/18/23 0836 traZODone 50 mg tab(s) (DESYREL) 50 mg ORAL AT BEDTIME PRN Irene Glez APRN.CNP hydrOXYzine HCl 25 mg tab(s) (ATARAX) 25 mg ORAL QID PRN Irene Glez APRN.CATARACT LENS GENERATOR 25 mg at 10/17/23 1029 NaCl 0.9% iv flush bag 20 mL INTRAVENOUS PRN Irene Glez APRN.CATARACT LENS GENERATOR NaCl 0.9% iv infusion 75 mL/hr INTRAVENOUS CONTINUOUS Irene Glez APRN.CATARACT LENS GENERATOR 75 mL/hr at 10/17/23 1252 75 mL/hr at 10/17/23 1252 ondansetron 4 mg tab(s) (ZOFRAN) 4 mg ORAL q 6 H PRN Irene Glez APRN.CNP Or ondansetron (PF) 4 mg injection (ZOFRAN) 4 mg INTRAVENOUS q 6 H PRN Irene Glez APRN.CATARACT LENS GENERATOR 4 mg at 10/15/23 2255 aluminum-magnesium hydroxide-simethicone 200-200-20 mg/5 mL 30 mL 30 mL ORAL DAILY PRN Irene Glez APRN.CNP ibuprofen 400 mg tab(s) (MOTRIN) 400 mg ORAL q 6 H PRN Irene Glez APRN.CATARACT LENS GENERATOR 400 mg at 10/18/23 0522 sodium chloride 0.9 % (flush) 2-10 mL (BD POSIFLUSH) 2-10 mL INTRAVENOUS DIRECTED PRN Irene Glez APRN.CNP And perflutren lipid microspheres 1.1 mg/mL 1.3 mL injection (DEFINITY) 1.3 mL INTRAVENOUS DIRECTED PRN Irene Glez APRN.CNP pantoprazole DR 40 mg tab(s) (PROTONIX) 40 mg ORAL DAILY (6 AM) Irene Glez APRN.CATARACT LENS GENERATOR 40 mg at 10/18/23 0518 tiZANidine 4 [...] 117 (H) 0 (more content not included)... [facility] 10-17-2023 Note HNO ID: [id number] Author: ZAKIA PEREZ MD Service: Clinical Cardiology [...] the setting of home alcohol withdrawal on [facility] protocol echocardiogram normal EKG unremarkable only [...] mL INTRAVENOUS DIRECT (more content not included)... [facility] 10-17-2023 Note HNO ID: [id number] Author: TOD WONG MD Service: General Internal [...] (FLONASE) 50 mcg/actuation nasal spray, Use 1 Stitzer in each nostril as needed., Disp: , [...] 30 mL ORAL (more content not included)... [facility] 10-16-2023 Note HNO ID: [id number] Author: BRANDEN DE LEON APRN.CNP Service: Critical Care Author Type: Nurse Practitioner Type: Plan of Care Filed: 10/16/2023 06:08 Note Text: Tube Sizer And Cutter Operator Coverage Note Patient Name: Emely Cleveland This [...] Leon APRN.CNP October 16, 2023 6:02 AM [facility] 10-16-2023 Note HNO ID: [id number] Author: BRANDY VARGAS APRN.CNP Service: Hospital Medicine [...] the patient with the HO SIGNATURE: Brandy Vargas APRN.CATARACT LENS GENERATOR PATIENT NAME: Emely Cleveland DATE: October 16, 2023 TIME: 5:10 AM [facility] 10-15-2023 Note HNO ID: [id number] Author: BRANDY VARGAS APRN.CATARACT LENS GENERATOR Service: Hospital Medicine Author Type: Nurse Practitioner Type: Progress Notes Filed: 10/15/2023 22:01 Note Text: Chief complaint: syncope, alcohol abuse Interval History: Patient is a 53-year-old female with a past medical history of HTN, HLD, GERD, ETOH abuse, KENDALL on CPAP, and anxiety/Depression who is admitted to [facility] from [facility] for evaluation of a syncopal episode. [...] pending clinical clearance and clearance Brandy Vargas APRN.[facility] 10/15/23 9:08 PM I spent a total of 60 minutes on the date of the service which included preparing to see the patient, gmiy-pv-hbfv patient care, completing clinical documentation, obtaining and/or reviewing separately obtained history, performing a medically appropriate examination, counseling and educating the patient/family/caregiver, ordering medications, tests, or procedures, communicating with other HCPs (not separately reported), independently interpreting results (not separately reported), communicating results to the patient/family/caregiver, and care coordination (not separately reported). [facility] 10-15-2023 Note HNO ID: [id number] Author: THEE PIERCE RT(Sumit) Service: Radiology Author [...] PATIENT PRESENTS WITH AN IMPLANTABLE OR ATTACHED JAVA DEVELOPER ARCHITECT: No RADIOLOGY DEPARTMENT: CT; Exam(s) Completed: Brain PERIPHERAL IV DATA: Not applicable SIGNED BY: RT Glenis(R) October 15, 2023 11:11 AM [facility] 10-15-2023 Note Formatting of this n ote is different from the original. BEHAVIORAL HEALTH BRIEF INTAKE NOTE SERVICE DATE: 10/15/2023 SERVICE TIME: 10:49 AM Emely Cleveland is a 53 year old female brought in to [facility] ED from Home by self for alcohol detox. FULL CASE NOT PROCESSED DUE TO: Patient medically admitted DISPOSITION & PLAN: Admit patient: No Discharge Disposition: Medical Admission Disposition Date: 10/15/23 Disposition Time: 1048 SIGNATURE: Terrance Hayes PATIENT NAME: Emely Cleveland DATE: October 15, 2023 TIME: 10:49 AM [facility] 10-15-2023 Miscellaneous Notes BEHAVIORAL HEALTH BRIEF INTAKE NOTE SERVICE DATE: 10/15/2023 SERVICE TIME: 10:49 AM Emely Cleveland is a 53 year old female brought in to [facility] ED from Home by self for alcohol detox. FULL CASE NOT PROCESSED DUE TO: Patient medically admitted DISPOSITION & PLAN: Admit patient: No Discharge Disposition: Medical Admission Disposition Date: 10/15/23 Disposition Time: 1048 SIGNATURE: Terrance Hayes PATIENT NAME: Emely Cleveland DATE: October 15, 2023 TIME: 10:49 AM documented in this encounter [facility] 10-15-2023 Note HNO ID: [id number] Author: BEAU PACHECO RT(R) Service: Radiology Author [...] PATIENT PRESENTS WITH AN IMPLANTABLE OR ATTACHED JAVA DEVELOPER ARCHITECT: No RADIOLOGY DEPARTMENT: General X-ray: Exam(s) Completed: Chest X-Ray PERIPHERAL IV DATA: Not applicable SIGNED BY: RT Leena(R) October 15, 2023 10:24 AM [facility] 10-05-2023 Instructions Kelly Ames APRN.[facility] - 10/05/2023 3:53 PM EDT Calcium [...] salmon and sardines and vegetables, such as Japanese cabbage, kale, and broccoli. Foods fortified with [...] acid, calcium carbonate is found in some tcvb-lsk-oovfhno antacid products, such as Tums and Rolaids [...] by your doctor. documented in this encounter [facility] 10-05-2023 Note HNO ID: [id number] Author: KELLY AMES APRN.CATARACT LENS GENERATOR Service: ? Author Type: Nurse Practitioner Type: [...] exam grossly normal EXTREMITIES: normal ASSESSMENT: Normal COURTESY CLERK exam Breast cancer screening PLAN: Pap done Encouraged/reviewed BSE Mammogram ordered Recommended 8264-1830 mg calcium intake with Vit D and weight bearing exercises, written info given FU 1 year/prn Kelly Ames, BRAD.CATARACT LENS GENERATOR [facility] 10-05-2023 History of Present illness Narrative S: [...] exam grossly normal EXTREMITIES: normal ASSESSMENT: Normal COURTESY CLERK exam Breast cancer screening PLAN: Pap done Encouraged/reviewed BSE Mammogram ordered Recommended 2755-6341 mg calcium intake with Vit D and weight bearing exercises, written info given FU 1 year/prn Kelly Ames APRN.CATARACT LENS GENERATOR documented in this encounter [facility] 09-30-2023 History of Present illness Narrative Subjective [...] sooner as needed. documented in this encounter [facility] Work Phone: 09-25-2023 History of Present illness [...] is changed-her daughter, along with her and 16-bihef-hzf son have all moved in with her. [...] get off alcohol forever. Encouraged her to [place] back with the addiction recovery service team [...] taking Lexapro, the latter prescribed by her retrofit installer, Tracy Collier. 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 As it turns out she changed [...] Also, her daughter, along with her and 54-ljwpx-sgf son have moved in with her. For the most part it is working well though she is not sleeping as well at night. Psychiatry consultation ordered. She will get this set up accordingly Elevated LFTs-viral hepatitis serology negative. Clearly this seems related temporally to her alcohol intake-will reassess LFTs in 8 weeks Right upper quadrant myqo-mvjxdbj-avg has discussed this with Dr. Johnson in [...] care- reminded patient to follow with her retrofit installer for gynecologic exams regularly as recommended by her retrofit installer- Dr. Perez; - annually. She actually follows with her nurse practitioner Kelly Ames She sees her each December. Left breast cyst-annual mammogram-evaluated with diagnostic mammogram and ultrasound 01/10-ordered by COURTESY CLERK. She states her next mammogram is scheduled for late April 2023 per COURTESY CLERK Sleeplessness-sleeping much better with a new job, [...] in the interim. Working with PT at [facility]-back is much better she notes with stretching [...] updating. She will setup appt soon. Dental jmua-ztaodsnwi-dhaptzivqyvy- UTD; Dermatology care-she will see her craft recruiter annually to follow her skin exam. She [...] include unintended errors. documented in this encounter [facility] Work Phone: 05-24-2023 Miscellaneous Notes May 25, 2023 PID: [id number] Emely Cleveland [address] [place] [address] Dear Ms. Cleveland, We are pleased to [...] report will be kept on file at [facility] as part of your permanent medical record and are available for your continuing care. Thank you for allowing us to help in meeting your health care needs. Sincerely, Dr. Sierra Interpreting Radiologist [facility] (Normal over 40) documented in this encounter [facility] 05-22-2023 Note HNO ID: [id number] Author: KELLIE SIMONS [employer] Service: ? Author Type: Semiconductor Wafers Etcher Stripper Type: Progress Notes Filed: 05/22/2023 14:58 Note [...] PATIENT PRESENTS WITH AN IMPLANTABLE OR ATTACHED JAVA DEVELOPER ARCHITECT: No RADIOLOGY DEPARTMENT: Mammography PERIPHERAL IV DATA: Not applicable SIGNED BY: Kellie Simons CarFin May 22, 2023 2:58 PM [facility] 05-22-2023 History of Present illness Narrative Radiology [...] PATIENT PRESENTS WITH AN IMPLANTABLE OR ATTACHED JAVA DEVELOPER ARCHITECT: No RADIOLOGY DEPARTMENT: Mammography PERIPHERAL IV DATA: Not applicable SIGNED BY: Kellie Simons CarFin May 22, 2023 2:58 PM documented in this encounter [facility] 04-09-2023 History of Present illness Narrative Images [...] Dose Status bisoproloL-hydrochlorothiazide (Ziac) 2.5-6.25 mg tablet [id number] No Take by mouth. Historical ProviderMD Taking Active cholecalciferol (Vitamin D-3) 25 MCG (1000 UT) tablet [id number] No Take by mouth. Historical ProviderMD Taking Active escitalopram (Lexapro) 10 mg tablet [id number] No Take 1 tablet (10 mg) by mouth once daily. Historical ProviderMD Taking Active fluticasone (Flonase) 50 mcg/actuation nasal spray [id number] No Administer 2 sprays into each nostril once daily in the evening. Shake gently. Before first use, prime pump. After use, clean tip and replace cap. Jhoan Roberto MD Taking Active losartan-hydrochlorothiazide (Hyzaar) 50-12.5 mg tablet [id number] No Take 1 tablet by mouth once daily. Jhoan Roberto MD Taking Active magnesium oxide (Mag-Ox) 400 mg (241.3 mg magnesium) tablet [id number] No Take by mouth. Naresh Mckeon MD Taking Active omeprazole (PriLOSEC) [address] capsule [id number] Take 1 capsule (40 mg) by mouth 2 times a day. Jhoan Roberto MD Active SUMAtriptan (Imitrex) 50 mg tablet [id number] No Take by mouth. Historical ProviderMD Taking Active tretinoin (Retin-A) 0.025 % cream [id number] No Apply topically once daily at bedtime. Pea sized amount to entire face 1-2 nights weekly; work up to nightly as tolerated Huong Landis MD Taking Active vitamin B complex (Vitamins B Complex) tablet [id number] No Take 1 tablet by mouth once [...] grammatical errors may persist related to the [employer] software. documented in this encounter [facility] Work Phone: 03-06-2023 History of Present illness [...] sooner with concerns documented in this encounter [facility] Work Phone: 03-04-2023 History of Present illness [...] Huong Landis MD. documented in this encounter [facility] Work Phone: 02-23-2023 Hospital Discharge instructions [place] [...] of having your procedure, call the [facility] to be advised whether a visit to [...] Lab, please call: Nurse Signature Date Patient/Responsible Alliance Party Signature Date documented in this encounter [facility] Work Phone: 02-23-2023 Hospital Discharge instructions [place] [...] having your procedure, call the [facility] to be advised whether a visit to [...] Lab, please call: Nurse Signature Date Patient/Responsible Alliance Party Signature Date documented in this encounter [facility] Work Phone: 10-17-2022 History of Present illness [...] walking more. Included in this is the MessageParty calorie counting jo-ann. Encouraged her to follow [...] care- reminded patient to follow with her retrofit installer for gynecologic exams regularly as recommended by her retrofit installer- Dr. Perez; - annually. She actually follows with her nurse practitioner Kelly Ames She sees her each December. Annual mammogram- updated August.She has had left breast since she states and has a 6-month follow-up scan. Bilateral diag She will go back to annual surveillance 01/10-ordered by COURTESY CLERK. Sleeplessness-sleeping much better with a new job, [...] in the interim. Working with PT at [facility]-back is much better she notes with stretching [...] updating. She will setup appt soon. Dental ruqq-qieykeurx-honrkezfhgma- UTD; Dermatology care-she will see her craft recruiter annually to follow her skin exam. She will setup appointment soon. Situational depression/work stress-Seasonal affective disorder/Anxiety/insomnia- presently taking Lexapro, the latter prescribed by her retrofit installer, Tracy Collier. 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 As it turns out she changed [...] include unintended errors. documented in this encounter [facility] Work Phone: 08-18-2022 Miscellaneous Notes Refill request for escitalopram 10 mg tablets Last Rx given 04/25/2022 MARISA 07/07/2022 NOV None Thank you, Krystal Anders LPN documented in this encounter [facility] 07-07-2022 History of Present illness Narrative S: [...] external genitalia normal, normal Bartholin's glands, urethra, [place]'s glands, no vulvar lesions, no cervical lesions, good vaginal support, physiologic discharge present, normal appearing perineal body and perianal region BIMANUAL: uterus normal size, shape and consistency, no adnexal masses and non-tender RECTOVAGINAL: deferred. NEURO: alert and oriented x3 and alert and oriented x3,exam grossly non-focal EXTREMITIES: normal ASSESSMENT: Normal COURTESY CLERK exam Breast cancer screening PLAN: Pap up to date Reviewed/Encouraged BSE Mammogram ordered Refill Clobetasol not needed at this time FU 1 year/prn Kelly Ames APRN.CATARACT LENS GENERATOR Sciatic issues and stomach upset. No fever. No concerns Irene Amaya I documented in this encounter [facility] 06-18-2022 Note Plan Progress with functional strength [...] in clinic is 50 minutes. Therapeutic exercise (67888): timed minutes 15 . UBE standing 2/2 biofeedback with core stabs Access Code: [email or web address] URL: [email or web address] Date: 06/11/2022 Prepared by: Rocael Alicea Exercises [...] weekly - 10 reps Supine Sciatic Nerve [place] - 1-2 x daily - 7 x [...] weekly - 10 reps . Manual Therapy (18292): timed minutes 30 . Iliacus/psoas release DTM gluteus medius, piriformis STM/DTM LS paraspinals with biofreeze UPA L4L5 Right IDN [id number]. 'Scores and Scales' Signatures Electronically signed by : Rocael Alicea, PT; Jun 18 2022 9:03AM EST (Author) [employer] 04-25-2022 Miscellaneous Notes Pt is requesting refill of Lexapro MARISA 02/07/2021 NOV 07/04/2022 Thank you, Krystal Anders LPN documented in this encounter [facility] 02-18-2022 History of Present illness Narrative Patient [...] gluteal area. She has been stretching via [employer]urb[employer] videos but no relief.Her work chair is sufficient but she is thinking of replacing, she adds. She reports that the pains sometimes wake her at nights and she takes Advil to take the edge off.She admits a productive cough with phlegm. She has been using Flonase daily.She admits recent knee pains that have since resolved. [facility] Work Phone: 01-08-2022 [...] 2022 3:34 PM documented in this encounter [facility] 12-24-2021 History of Present illness Narrative This [...] and is at work by 7 am. [facility] Work Phone: 12-24-2021 [...] and is at work by 7 am. [facility] Work Phone: 12-24-2021 History of Present illness [...] and is at work by 7 am. [facility] Work Phone: 12-05-2021 History of Present illness [...] healed. There is no redness or drainage. -[facility] Work Phone: 11-17-2021 History of Present [...] not corrected for typographical or grammatical errors AN-Sjusxsmsd-Xpvzmbrt B [address] Work Phone: 10-18-2021 History of [...] 2021 5:01 PM documented in this encounter [facility] 07-24-2021 Note Post Operative Note: PreOp Diagnosis: Advanced anterior abdominal wall Post-Procedure Diagnosis: Same Procedure: 1. Excision of soft tissue mass 2. Intermediate closure wound 3. 4. 5. Surgeon: Alex Resident/Fellow/Other Machine Silver Stripper: Anesthesia: General Estimated Blood Loss (mL): Minimal Specimen: yes Findings: Lipomatous tissue, no hernia Operative Report Dictated: Dictation: yes Attestation: Note Completion: Attending AttestationI performed the procedure without a resident Electronic Signatures: Char Johnson) (Signed 24-Jul-2021 10:34) Authored: Post Operative Note, Note Completion Last Updated: 24-Jul-2021 10:34 by Char Johnson) [facility] 07-24-2021 Note History & Physical R eviewed: [...] Last Updated: 24-Jul-2021 09:15 by Char Johnson) [facility] 07-22-2021 Note History of Present I llness: [...] Comorbidities, Allergies, Medication (more content not included)... [facility] 05-03-2021 History of Present illness Narrative Here [...] bump on the back of her head [facility] Work Phone: 01-01-2021 History of Present illness Narrative Here for semiannual visit, and wellness visitRecently had an upper respiratory illness-improved with steroids after urgent care. Negative Covid test 01/01Still some ear pressure. Otherwise doing well. No recent injuries. [facility] occasionally noted [facility] Work Phone: 03-22-2014 History of Past i llness Narrative Problem Noted Date Resolved Date S/P LASIK surgery of both eyes 03/22/2014 1 documented as of this encounter (statuses as of 10/18/2021) [facility]12-[facility]-2014 History of Past illness Narrative* Problem Noted Date Resolved Date S/P LASIK surgery of both eyes 03/22/2014 1 documented as of this encounter (statuses as of 01/09/2022) [facility]2014 History of Past illness Narrative* Problem Noted Date Resolved Date S/P LASIK surgery of both eyes 03/22/2014 1 documented as of this encounter (statuses as of 04/26/2022) [facility]2014 History of Past illness Narrative* Problem Noted Date Resolved Date S/P LASIK surgery of both eyes 03/22/2014 1 documented as of this encounter (statuses as of 07/07/2022) [facility] History of Past illness Narrative* Problem Noted Date Resolved Date S/P LASIK surgery of both eyes 03/22/2014 1 documented as of this encounter (statuses as of 08/18/2022) [place] [address]-03-2014 History of Past illness Narrative* Problem Noted Date Diagnosed Date Resolved Date S/P LASIK surgery of both eyes 03/22/2014 02/14/2016 documented as of this encounter (statuses as of 05/23/2023) [place] [address]03-2014 History of Past illness Narrative* Problem Noted Date Diagnosed Date Resolved Date S/P LASIK surgery of both eyes 03/22/2014 02/14/2016 documented as of this encounter (statuses as of 05/26/2023) [facility] N[facility] - Reported* Neuropathy * Neurologic Evaluation. * An interactive audio and video telecommunication system which permits real time communications between the patient (at the originating site) and provider (at the distant site) was utilized to providethis telehealth service. * Verbal consent was requested and obtained from EMELY CLEVELAND on this date, 11/17/2022 08:30 AM , for a telehealth visit. RN-Cmmrrvfvk-Qfnfskdc B [address] Work Phone: Evaluation noteN/ADept. of Dermatology Evaluation note* Diagnosis Abrasion of left cornea, initial encounter- Primary [facility] Diagnosis Abnormal mammogram Abnormal mammogram, unspecified [facility] this encounter [facility] Diagnosis Encounter for gynecological examination (general) (routine) without abnormal findings- Primary Encounter for screening mammogram for malignant neoplasm of breast Other screening mammogram [facility] Diagnosis Essential hypertension with goal blood pressure less than 130/85- Primary Dyslipidemia, goal LDL below 100 Abdominal pain, RUQ (right upper quadrant) Abdominal pain, right upper quadrant Fatty liver Other chronic nonalcoholic liver disease Adenomatous polyp of colon, unspecified part of colon Prediabetes Other abnormal glucose Abdominal wall pain in right upper quadrant documented in this encounter [facility] Work Phone: [phone] note* Diagnosis Encounter for screening for malignant neoplasm of colon Benign neoplasm of colon, unspecified part of colon documented in this encounter [facility] Work Phone: [phone] note* Diagnosis Acne vulgaris- Primary Other acne Seborrheic keratosis documented in this encounter [facility] Work Phone: [phone] note* Diagnosis Dyslipidemia, goal LDL below 100- Primary Migraine with aura and without status migrainosus, not intractable Essential hypertension with goal blood pressure less than 130/85 Fatty liver Other chronic nonalcoholic liver disease Prediabetes Other abnormal glucose documented in this encounter [facility] Work Phone: [phone] note* Diagnosis Other polyneuropathy documented in this encounter [facility] Work Phone: [phone] note* Diagnosis Encounter for screening for malignant neoplasm of colon Benign neoplasm of colon, unspecified part of colon documented in this encounter [facility] Work Phone: [phone] note* Diagnosis Alcoholism (CMS/HCC)- Primary Other and unspecified alcohol dependence, unspecified drinking behavior documented in this encounter [facility] Work Phone: [phone] note* Diagnosis Closed nondisplaced fracture of base of fifth metacarpal bone of left hand, initial encounter documented in this encounter [facility] Work Phone: [phone] note* Diagnosis Closed nondisplaced fracture of base of fifth metacarpal bone of left hand, initial encounter documented in this encounter [facility] Work Phone: [phone] note* Diagnosis Encounter for screening mammogram for malignant neoplasm of breast Other screening mammogram [facility] Diagnosis Gall bladder polyp Cholesterolosis of gallbladder documented in this encounter [facility] Work Phone: Evaluation note* Diagnosis Essential hypertension [...] and/or hyponatremia Neutropenia, unspecified type (CMS-HCC) Thrombocytopenia ([facility]-HCC) Unspecified thrombocytopenia documented in this encounter [facility] Work Phone: Evaluation note* Diagnosis Melanocytic nevus, unspecified location- Primary Hemangioma of skin Hemangioma of skin and subcutaneous tissue Lentigo Other dyschromia Seborrheic keratosis Encounter for screening for malignant neoplasm of skin documented in this encounter [facility] Work Phone: Evaluation note* Diagnosis Encounter for gynecological examination (general) (routine) without abnormal findings- Primary Encounter for screening mammogram for malignant neoplasm of breast Other screening mammogram [facility] Diagnosis Alcohol use disorder, severe, dependence (HCC)- Primary [facility] N[facility]* Here for follow-up * Work has become exceedingly stressful. FMLA form requested * Stomach pain has improved * Sleep issues ongoing [facility] Work Phone: History [...] pain has improved * Sleep issues ongoing [facility] Work Phone: History of Present illness Narrative* [...] choking/ gasping and decreased morning headaches. -[facility] A2470 DO Work Phone: History of Present illness Narrative* Here for follow-up * Reports new job-far less stressful overall doing much better * Doing quite well on CPAP nightly-Flonase helps and less congested through the day. More energy * Excited to announce her grandchild is due near Thanksgiving * She had a nodule removed from her abdominal wall [facility] Work Phone: History [...] medical factors included in this evaluation. [facility] Work Phone: History of Present illness Narrative* [...] understanding of principals instructed and home program. [facility]: history of Present illness Narrative* [...] understanding of principals instructed and home program. [facility] Work Phone: history of Present illness Narrative* [...] understanding of principals instructed and home program. [facility] Work Phone: history of Present illness Narrative* [...] understanding of principals instructed and home program. [facility] Work Phone: History of Present illness Narrative* [...] of principals instructed and home program. [facility] Work Phone: History of Present illness Narrative* [...] adverse reaction to the dry needling noted. [facility] Work Phone: History of Present illness Narrative* [...] adverse reaction to the dry needling noted. [facility] Work Phone: History of Present illness Narrative* [...] adverse reaction to the dry needling noted. [facility] Work Phone: History of Present illness Narrative* [...] adverse reaction to the dry needling noted. [facility] Work Phone: history of Present illness [...] adverse reaction to the dry needling noted. [facility] Work Phone: history of Present illness [...] adverse reaction to the dry needling noted. [facility] Work Phone: History of Present illness Narrative* [...] adverse reaction to the dry needling noted. [facility] Work Phone: History of Present illness Narrative* [...] adverse reaction to the dry needling noted. [facility] Work Phone: Reason for referral (narrative)* Name Reason for referral NA NA Dept. of Dermatology Reason for referral (narrative)* Diagnostic Procedure Only (Routine) - Pending Review Specialty Diagnoses / Procedures Referred By Victor M t Referred To Contact [facility] Diagnoses Encounter for screening mammogram for malignant neoplasm of breast Procedures CIERRA SCREENING SCREENING MAMMOGRAPHY BI 2-VIEW BREAST INC CAD Kelly Ames, LABORER.CATARACT LENS GENERATOR [address] [facility], [place] [address] [facility] [address] [place] [address] Referral ID Status Reason Start Date Expiration Date Visits Requested Visits Authorized [id number] Pending Review Auto-Generat ed Referral 07/07/2022 08/06/2023 1 1 * Diagnostic Procedure Only (Routine) - Pending Review Specialty Diagnoses / Procedures [facility] Referred To Contact [facility] Diagnoses Encounter for screening mammogram for malignant neoplasm of breast Procedures CIERRA SCREENING W BRITTANI SCREENING DIGITAL BREAST TOMOSYNTHESIS BI SCREENING MAMMOGRAPHY BI 2-VIEW BREAST INC TOREY Ames, Kelly Krishnan APRN.CATARACT LENS GENERATOR [address] [place] [address] [facility] [address] [place] [id number] Referral ID Status Reason Start Date Expiration Date Visits Requested Visits Authorized [id number] Pending Review Auto-Generat ed Referral 07/07/2022 08/06/2023 1 1 [facility] for referral (narrative)* Consultation (Routine) - Authorized Specialty Diagnoses / Procedures Referred By [facility] Referred To Contact General Surgery Diagnoses Abdominal wall pain in right upper quadrant Procedures CO OFFICE/OUTPATIENT NEW HIGH MDM 60-74 MINUTES Jhoan Roberto MD [address] [facility], [place] [id number] Referral ID Status Reason Start Date Expiration Date Visits Requested Visits Authorized [id number] Authorized Specialty Services Required 10/17/2022 04/15/2023 1 1 * Endoscopy (Routine) - Authorized Specialty Diagnoses / Procedures Referred By [facility] t Referred To Contact Gastroenterology Diagnoses Adenomatous polyp of colon, unspecified part of colon Procedures Colonoscopy Jhoan Roberto MD [address] [facility], [place] [phone] Referral ID Status Reason Start Date Expiration Date V isits Requested Visits Authorized [id number] Authorized 10/17/2022 04/15/2023 1 1 * Imaging (Routine) - Authorized Specialty Diagnoses / Procedures Referred By Contac t Referred To Contact Radiology Diagnoses Fatty liver Procedures US elastography parenchyma EG organ Jhoan Roberto MD [address] [facility], [place] [address] [place] [address] Referral ID Status Reason Start Date Expiration Date Visits Requested Visits Authorized [id number] Authorized Perform Procedure 10/17/2022 04/15/2023 1 1 [facility] Work Phone: Reason for referral (narrative)* Consultation (Routine) - Authorized Specialty Diagnoses / Procedures Referred By Contac t Referred To Contact Hepatology Diagnoses Elevated LFTs Jhoan Roberto MD [address] [facility] [place] [address] [place], [place] [phone] Referral ID Status Reason Start Date Expiration Date Visits Requested Visits Authorized [id number] Authorized Specialty Services Required 09/28/2023 09/27/2024 1 1 * Consultation (Routine) - Authorized Specialty Diagnoses / Procedures Referred By Contac t Referred To Contact Psychiatry / Behavioral Health Diagnoses Reactive depression Jhoan Roberto MD [address] [facility] [place] [address] [place], [place] [phone] Referral ID Status Reason Start Date Expiration Date Visits Requested Visits Authorized [id number] Authorized Specialty Services Required 09/25/2023 09/24/2024 1 1 * Consultation (Routine) - Authorized Specialty Diagnoses / Procedures Referred By Contac t Referred To Contact Neurology Diagnoses Memory changes Jhoan Roberto MD [address] [facility] [address] [place] [id number] Referral ID Status Reason Start Date Expiration Date Visits Requested Visits Authorized [id number] Authorized Specialty Services Required 09/25/2023 09/24/2024 1 1 * Consultation (Routine) - Authorized Specialty Diagnoses / Procedures Referred By Victor M mayes Referred To Contact Behavioral Health / Psychiatry Diagnoses Alcoholism (Multi) Jhoan Roberto MD [address] [facility], [place] [phone] Referral ID Status Reason Start Date Expiration Date Visits Requested Visits Authorized [id number] Authorized Specialty Services Required 09/25/2023 09/24/2024 1 1 [facility] Work Phone: Reason for referral (narrative)* Diagnostic Procedure Only (Routine) - Pending Review Specialty Diagnoses / Procedures Referred By Victor M mayes Referred To Contact [facility] Diagnoses Encounter for screening mammogram for malignant neoplasm of breast Procedures CIERRA SCREENING W BRITTANI SCREENING DIGITAL BREAST TOMOSYNTHESIS BI SCREENING MAMMOGRAPHY BI 2-VIEW BREAST INC CAD Carlos, Kelly Krishnan APRN.CATARACT LENS GENERATOR [address] [facility] [place] [address] [facility] [address] [place] [address] Referral ID Status Reason Start Date Expiration Date Visits Requested Visits Authorized [id number] Pending Review Auto-Generat ed Referral 10/05/2023 11/03/2024 1 1 [facility] Narrative* Diagnostic Procedure Only (Routine) - Closed Specialty Diagnoses / Procedures Referred By Victor M mayes Referred To Contact BR IMAGING Diagnoses Abnormal mammogram Procedures CIERRA DIAGNOSTIC BILAT DIAGNOSTIC MAMMOGRAPHY COMPUTER-AIDED DETCJ BI Kelly Ames, LABORER.CATARACT LENS GENERATOR [id number] [facility] [employer] [place] [address] Br Imaging [address] [place] [address] Referral ID Status Reason Start Date Expiration Date V isits Requested Visits Authorized [id number] Closed Auto-Generate d Referral 06/06/2021 07/06/2022 1 1 [facility] Dublin[facility] for visit Narrative* Initial Evaluation . LBP with radicular symptoms. * Referred by: [facility] Work Phone: Reason for visit Narrative* Consultation (Routine) - Authorized Specialty Diagnoses / Procedures Referred By Victor M mayes Referred To Contact Behavioral Health / Psychiatry Diagnoses Alcoholism (CMS/HCC) Jhoan Roberto MD [address] [facility], [address] [address] Referral ID Status Reason Start Date Expiration Date Visits Requested Visits Authorized [id number] Authorized Specialty Services Required 3 03/17/2024 1 1 [facility] Work Phone: Rejvgq for visit Narrative* Diagnostic Procedure Only (Routine) - Closed Specialty Diagnoses / Procedures Referred By Victor M mayes Referred To Contact BR IMAGING Diagnoses Encounter for screening mammogram for malignant neoplasm of breast Procedures CIERRA SCREENING W BRITTANI SCREENING DIGITAL BREAST TOMOSYNTHESIS BI SCREENING MAMMOGRAPHY BI 2-VIEW BREAST INC CAD Kelly Ames, LABORER.CATARACT LENS GENERATOR [id number] [facility] [employer] [place] [address] Br Imaging [address] [place] [address] Referral ID Status Reason Start Date Expiration Date V isits Requested Visits Authorized [id number] Closed Auto-Generate d Referral 07/07/2022 08/06/2023 1 1 [facility] Family History No Family History Records Found [...] Sibling Comments:mother, 75, malcolm, domingo carrasco in [place]; Natali is the 4th of 10 kids, HTN, and kidney stones in several; Status:Active : Father Comments:father at 67 - brain tumor; Status:Active Unknown Family Member Name Dates Details No known health problems: Mo ther, Sibling Comments:mother, 75, well, l luna in [place]; Natali is the 4th of 10 kids, [...] Sibling Comments:mother, 75, well, l luna in [place]; Natali is the 4th of 10 kids, HTN, and kidney stones in several; Status:Active : Father Comments:father at 67 - brain tumor; Status:Active Unknown Family Member Name Dates Details Hemifacial Spasm: Brother Comments:Eye; Status:Active Idiopathic Hypertrophic Suba ortic Stenosis: Brother Status:Active No known health problems: Mo ther, Sibling Comments:mother, 75, well, l luna in [place]; Naatli is the 4th of 10 kids, HTN, and kidney stones in several; Status:Active : Father Comments:father at 67 - brain tumor; Status:Active Unknown Family Member Name Dates Details Hemifacial Spasm: Brother Comments:Eye; Status:Active Idiopathic Hypertrophic Suba ortic Stenosis: Brother Status:Active No known health problems: Mo ther, Sibling Comments:mother, 75, well, l luna in [place]; Natali is the 4th of 10 kids, HTN, and kidney stones in several; Status:Active : Father Comments:father at 67 - brain tumor; Status:Active Unknown Family Member Name Dates Details Hemifacial Spasm: Brother Comments:Eye; Status:Active Idiopathic Hypertrophic Suba ortic Stenosis: Brother Status:Active No known health problems: Mo ther, Sibling Comments:mother, 75, well, l luna in [place]; Natali is the 4th of 10 kids, HTN, and kidney stones in several; Status:Active : Father Comments:father at 67 - brain tumor; Status:Active Unknown Family Member Name Dates Details Hemifacial Spasm: Brother Comments:Eye; Status:Active Idiopathic Hypertrophic Suba ortic Stenosis: Brother Status:Active No known health problems: Mo ther, Sibling Comments:mother, 75, well, l luna in [place]; Natali is the 4th of 10 kids, HTN, and kidney stones in several; Status:Active : Father Comments:father at 67 - brain tumor; Status:Active Unknown Family Member Name Dates Details Hemifacial Spasm: Brother Comments:Eye; Status:Active Idiopathic Hypertrophic Suba ortic Stenosis: Brother Status:Active No known health problems: Mo ther, Sibling Comments:mother, 75, well, l luna in [place]; Natali is the 4th of 10 kids, HTN, and kidney stones in several; Status:Active : Father Comments:father at 67 - brain tumor; Status:Active Unknown Family Member Name Dates Details Hemifacial Spasm: Brother Comments:Eye; Status:Active Idiopathic Hypertrophic Suba ortic Stenosis: Brother Status:Active No known health problems: Mo ther, Sibling Comments:mother, 75, well, l luna in [place]; Natali is the 4th of 10 kids, HTN, and kidney stones in several; Status:Active : Father Comments:father at 67 - brain tumor; Status:Active Unknown Family Member Name Dates Details : Father Comments:father at 67 - brain tumor; Status:Active No known health problems: Mo ther, Sibling Comments:mother, 75, well, l luna in [place]; Natali is the 4th of 10 kids, HTN, and kidney stones in several; Status:Active Idiopathic Hypertrophic Suba ortic Stenosis: Brother Status:Active Hemifacial Spasm: Brother Comments:Eye; Status:Active Unknown Family Member Name Dates Details Hemifacial Spasm: Brother Comments:Eye; Status:Active Idiopathic Hypertrophic Suba ortic Stenosis: Brother Status:Active No known health problems: Mo ther, Sibling Comments:mother, 75, well, l luna in [place]; Natali is the 4th of 10 kids, [...] Sibling Comments:mother, 75, well, l luna in [place]; Natali is the 4th of 10 kids, HTN, and kidney stones in several; Status:Active Idiopathic Hypertrophic Suba ortic Stenosis: Brother Status:Active Hemifacial Spasm: Brother Comments:Eye; Status:Active Unknown Family Member Name Dates Details Hemifacial Spasm: Brother Comments:Eye; Status:Active Idiopathic Hypertrophic Suba ortic Stenosis: Brother Status:Active No known health problems: Mo ther, Sibling Comments:mother, 75, well, l luna in [place]; Natali is the 4th of 10 kids, [...] Sibling Comments:mother, 75, well, l luna in [place]; Natali is the 4th of 10 kids, HTN, and kidney stones in several; Status:Active : Father Comments:father at 67 - brain tumor; Status:Active Family history of essential hypertension: Father, Brother(V17.49, Z82.49) Comments:2 brothers w/ HTN, one brother is a doctor; Status:Active Unknown Family Member Name Dates Details No known health problems: Mo ther, Sibling Comments:mother, 75, malcolm, domingo carrasco in [place]; Natali is the 4th of 10 kids, [...] Sibling Comments:mother, 75, well, l luna in [place]; Natali is the 4th of 10 kids, [...] Sibling Comments:mother, 75, well, l luna in [place]; Natali is the 4th of 10 kids, HTN, and kidney stones in several; Status:Active Idiopathic Hypertrophic Suba ortic Stenosis: Brother Status:Active Hemifacial Spasm: Brother Comments:Eye; Status:Active Unknown Family Member Name Dates Details Hemifacial Spasm: Brother Comments:Eye; Status:Active Idiopathic Hypertrophic Suba ortic Stenosis: Brother Status:Active No known health problems: Mo ther, Sibling Comments:mother, 75, well, l luna in [place]; Natali is the 4th of 10 kids, [...] Sibling Comments:mother, 75, well, l luna in [place]; Natali is the 4th of 10 kids, HTN, and kidney stones in several; Status:Active : Father Comments:father at 67 - brain tumor; Status:Active Unknown Family Member Name Dates Details Hemifacial Spasm: Brother Comments:Eye; Status:Active Idiopathic Hypertrophic Suba ortic Stenosis: Brother Status:Active No known health problems: Mo ther, Sibling Comments:mother, 75, well, l luna in [place]; Natali is the 4th of 10 kids, HTN, and kidney stones in several; Status:Active : Father Comments:father at 67 - brain tumor; Status:Active Family history of essential hypertension: Father, Brother(V17.49, Z82.49) Comments:2 brothers w/ HTN, one brother is a doctor; Status:Active Unknown Family Member Name Dates Details No known health problems: Mo ther, Sibling Comments:mother, 75, well, l luna in [place]; Natali is the 4th of 10 kids, [...] Sibling Comments:mother, 75, well, l luna in [place]; Natali is the 4th of 10 kids, HTN, and kidney stones in several; Status:Active : Father Comments:father at 67 - brain tumor; Status:Active Family history of essential hypertension: Father, Brother(V17.49, Z82.49) Comments:2 brothers w/ HTN, one brother is a doctor; Status:Active Unknown Family Member Name Dates Details No known health problems: Mo ther, Sibling Comments:mother, 75, well, l luna in [place]; Natali is the 4th of 10 kids, [...] Sibling Comments:mother, 75, well, l luna in [place]; Natali is the 4th of 10 kids, [...] Sibling Comments:mother, 75, well, l luna in [place]; Natali is the 4th of 10 kids, [...] Sibling Comments:mother, 75, well, l luna in [place]; Natali is the 4th of 10 kids, [...] Sibling Comments:mother, 75, well, l luna in [place]; Natali is the 4th of 10 kids, HTN, and kidney stones in several; Status:Active : Father Comments:father at 67 - brain tumor; Status:Active Family history of essential hypertension: Father, Brother(V17.49, Z82.49) Comments:2 brothers w/ HTN, one brother is a doctor; Status:Active Unknown Family Member Name Dates Details No known health problems: Mo ther, Sibling Comments:mother, 75, well, l luna in [place]; Natali is the 4th of 10 kids, [...] Sibling Comments:mother, 75, well, l luna in [place]; Natali is the 4th of 10 kids, [...] Sibling Comments:mother, 75, well, l luna in [place]; Natali is the 4th of 10 kids, [...] Sibling Comments:mother, 75, well, l luna in [place]; Natali is the 4th of 10 kids, HTN, and kidney stones in several; Status:Active Idiopathic Hypertrophic Suba ortic Stenosis: Brother Status:Active Hemifacial Spasm: Brother Comments:Eye; Status:Active Unknown Family Member Name Dates Details No known health problems: Mo ther, Sibling Comments:mother, 75, well, l luna in [place]; Natali is the 4th of 10 kids, [...] Sibling Comments:mother, 75, well, l luna in [place]; Natali is the 4th of 10 kids, HTN, and kidney stones in several; Status:Active : Father Comments:father at 67 - brain tumor; Status:Active Unknown Family Member Name Dates Details Hemifacial Spasm: Brother Comments:Eye; Status:Active Idiopathic Hypertrophic Suba ortic Stenosis: Brother Status:Active No known health problems: Mo ther, Sibling Comments:mother, 75, well, l ulna in [place]; Natali is the 4th of 10 kids, [...] Sibling Comments:mother, 75, well, l luna in [place]; Natali is the 4th of 10 kids, [...] Sibling Comments:mother, 75, well, l luna in [place]; Natali is the 4th of 10 kids, [...] Sibling Comments:mother, 75, well, l luna in [place]; Natali is the 4th of 10 kids, [...] Sibling Comments:mother, 75, well, l luna in [place]; Natali is the 4th of 10 kids, [...] Sibling Comments:mother, 75, well, l luna in [place]; Natali is the 4th of 10 kids, [...] Sibling Comments:mother, 75, well, l luna in [place]; Natali is the 4th of 10 kids, HTN, and kidney stones in several; Status:Active : Father Comments:father at 67 - brain tumor; Status:Active Family history of essential hypertension: Father, Brother(V17.49, Z82.49) Comments:2 brothers w/ HTN, one brother is a doctor; Status:Active Unknown Family Member Name Dates Details No known health problems: Mo ther, Sibling Comments:mother, 75, well, l luna in [place]; Natali is the 4th of 10 kids, [...] Sibling Comments:mother, 75, well, l luna in [place]; Natali is the 4th of 10 kids, [...] Sibling Comments:mother, 75, well, l luna in [place]; Natali is the 4th of 10 kids, [...] Sibling Comments:mother, 75, well, l luna in [place]; Natali is the 4th of 10 kids, HTN, and kidney stones in several; Status:Active : Father Comments:father at 67 - brain tumor; Status:Active Family history of essential hypertension: Father, Brother(V17.49, Z82.49) Comments:2 brothers w/ HTN, one brother is a doctor; Status:Active Unknown Family Member Name Dates Details No known health problems: Mo ther, Sibling Comments:mother, 75, well, l luna in [place]; Natali is the 4th of 10 kids, [...] Sibling Comments:mother, 75, well, l luna in [place]; Natali is the 4th of 10 kids, [...] Sibling Comments:mother, 75, well, l luna in [place]; Natali is the 4th of 10 kids, HTN, and kidney stones in several; Status:Active : Father Comments:father at 67 - brain tumor; Status:Active Family history of essential hypertension: Father, Brother(V17.49, Z82.49) Comments:2 brothers w/ HTN, one brother is a doctor; Status:Active Unknown Family Member Name Dates Details No known health problems: Mo ther, Sibling Comments:mother, 75, well, l luna in [place]; Natali is the 4th of 10 kids, [...] Sibling Comments:mother, 75, well, l luna in [place]; Natali is the 4th of 10 kids, [...] Sibling Comments:mother, 75, well, l luna in [place]; Natali is the 4th of 10 kids, [...] Sibling Comments:mother, 75, well, l luna in [place]; Natali is the 4th of 10 kids, [...] Sibling Comments:mother, 75, well, l luna in [place]; Natali is the 4th of 10 kids, [...] Sibling Comments:mother, 75, well, l luna in [place]; Natali is the 4th of 10 kids, [...] Sibling Comments:mother, 75, well, l luna in [place]; Natali is the 4th of 10 kids, [...] Sibling Comments:mother, 75, well, l luna in [place]; Natali is the 4th of 10 kids, [...] Sibling Comments:mother, 75, well, l luna in [place]; Natali is the 4th of 10 kids, [...] Sibling Comments:mother, 75, well, l luna in [place]; Natali is the 4th of 10 kids, [...] Sibling Comments:mother, 75, well, l luna in [place]; Natali is the 4th of 10 kids, [...] Sibling Comments:mother, 75, well, l luna in [place]; Natali is the 4th of 10 kids, HTN, and kidney stones in several; Status:Active : Father Comments:father at 67 - brain tumor; Status:Active Family history of essential hypertension: Father, Brother(V17.49, Z82.49) Comments:2 brothers w/ HTN, one brother is a doctor; Status:Active Unknown Family Member Name Dates Details No known health problems: Mo ther, Sibling Comments:mother, 75, well, l luna in [place]; Natali is the 4th of 10 kids, [...] FoundDocuments on File Type Date Recorded Patient Director Of Diversity And Inclusion Expl anation Advance Directive(s) 01/08/2021 7:34 AM Reason for Referral Specialty Diagnoses / Procedures Referred By Victor M mayes Referred To Contact Gastroenterology Diagnoses Benign neoplasm of colon, unspecified part of colon Procedures Colonoscopy Screening Colonoscopy Screening CO COLONOSCOPY FLX DX W/COLLJ SPEC WHEN PFRMD CO COLON CA SCRN NOT HI RSK IND CO COLORECTAL SCRN; HI RISK IND CO COLONOSCOPY W/BIOPSY SINGLE/MULTIPLE CO COLSC FLX W/RMVL OF TUMOR POLYP LESION SNARE TQ CO COLSC FLX W/REMOVAL LESION BY HOT BX FORCEPS Jhoan Roberto MD [address] [facility], [place] [address] [place] [address] Referral ID Status Reason Start Date Expiration Date V isits Requested Visits Authorized [id number] Authorized 01/01/2023 06/30/2023 1 1 Specialty Diagnoses / Procedures Referred By Victor M mayes Referred To Contact Diagnoses Other polyneuropathy Procedures EMG & nerve conduction Kenzie Elizondo, LABORER-CATARACT LENS GENERATOR [address] [facility], [address] [place] [address] Referral ID Status Reason Start Date Expiration Date V isits Requested Visits Authorized [id number] Pending Review 01/21/2023 07/20/2023 1 1 Specialty Diagnoses / Procedures Referred By Contac t Referred To Contact Radiology Diagnoses Closed nondisplaced fracture of base of fifth metacarpal bone of left hand, initial encounter Procedures XR hand left 3+ views Jarod Ghosh MD [address] [facility], [address] [place] [address] Referral ID Status Reason Start Date Expiration Date Visits Requested Visits Authorized [id number] Authorized Perform Procedure 05/13/2023 05/12/2024 1 1 Specialty Diagnoses / Procedures Referred By Contac t Referred To Contact Radiology Diagnoses Gall bladder polyp Procedures US abdomen complete Jhoan Roberto MD [address] [facility], [place] [address] [place] [address] Referral ID Status Reason Start Date Expiration Date Visits Requested Visits Authorized [id number] Authorized Perform Procedure 3 03/17/2024 1 1 Additional Source Comments Reason for Visit (unrecogniz ed section and content) Reason Comments hit OS Reason Onset Date Comments Refill Request 04/25/2022 Reason Comments Refill Request Reason Comments Follow-up Specialty Diagnoses / Procedures Referred By Contac t Referred To Contact Diagnoses Benign neoplasm of colon, unspecified Procedures CO COLONOSCOPY FLX DX W/COLLJ SPEC WHEN PFRMD [facility] [address] [facility] [address] [place] [address] Referral ID Status Reason Start Date Expiration Date Visits Re quested Visits Authorized [id number] 1 1 Reason Comments Acne Suspicious Skin Lesion Reason Comments FMLA Specialty Diagnoses / Procedures Referred By Contac t Referred To Contact Diagnoses Other polyneuropathy Procedures EMG & nerve conduction Kenzie Elizondo, LABORER-CATARACT LENS GENERATOR [address] [facility], [address], [address] [place] [address] Referral ID Status Reason Start Date Expiration Date V isits Requested Visits Authorized [id number] Pending Review 01/21/2023 07/20/2023 1 1 Reason Comments Pain Specialty Diagnoses / Procedures Referred By Contac t Referred To Contact Radiology Diagnoses Closed nondisplaced fracture of base of fifth metacarpal bone of left hand, initial encounter Procedures XR hand left 3+ views Jarod Ghosh MD [address] [facility], [address] [place] [address] Referral ID Status Reason Start Date Expiration Date Visits Requested Visits Authorized [id number] Authorized Perform Procedure 05/13/2023 05/12/2024 1 1 Specialty Diagnoses / Procedures Referred By Contac t Referred To Contact Radiology Diagnoses Gall bladder polyp Procedures US abdomen complete Jhoan Roberto MD [address] [facility], [facility] [address] [place] [address] Referral ID Status Reason Start Date Expiration Date Visits Requested Visits Authorized [id number] Authorized Perform Procedure 3 03/17/2024 1 1 Reason Comments Forms/questionnaires Disability paperwor k Back Pain Upper and lower back pain. Wants PT order Reason Comments Skin Check annual Reason Comments Well Woman Last pap (ascus) and hpv (neg) 01/2021 Reason Onset Date Comments Detoxification 10/15/2023 Reason Comments Consult INFORMATION SOURCE (unrecogn ized section and content) DATE CREATED AUTHOR 08/06/2021 [facility] DATE CREATED AUTHOR AUTHOR'S ORGANIZ ATION 12/05/2022 [employer] DATE CREATED AUTHOR AUTHOR'S ORGANIZ ATION 12/06/2022 [facility] DATE CREATED AUTHOR AUTHOR'S ORGANIZ ATION 01/02/2023 [facility] DATE CREATED AUTHOR AUTHOR'S ORGANIZ ATION 05/17/2023 [facility] DATE CREATED AUTHOR AUTHOR'S ORGANIZ ATION 05/26/2023 [facility] DATE CREATED AUTHOR AUTHOR'S ORGANIZ ATION 10/18/2023 [facility] DATE CREATED AUTHOR AUTHOR'S ORGANIZ ATION 10/26/2023 [facility] DATE CREATED AUTHOR AUTHOR'S ORGANIZ ATION 11/02/2023 [facility] DATE CREATED AUTHOR AUTHOR'S ORGANIZ ATION 11/03/2023 [facility] DATE CREATED AUTHOR AUTHOR'S ORGANIZ ATION 11/05/2023 [facility] DATE CREATED AUTHOR AUTHOR'S ORGANIZ ATION 11/06/2023 [facility] DATE CREATED AUTHOR AUTHOR'S ORGANIZ ATION 11/06/2023 [facility] DATE CREATED AUTHOR AUTHOR'S ORGANIZ ATION 11/30/2023 [facility] Source Comments (unrecognize d section and content) In the event this informatio n is protected by the Federal Confidentiality of Alcohol and Drug Abuse Patient Records regulations: The Federal rules restrict any use of the information to criminally investigate or prosecute any alcohol or drug abuse patient.[facility] the event this information is protected by the Federal Confidentiality of Alcohol and Drug Abuse Patient Records regulations: The Federal rules restrict any use of the information to criminally investigate or prosecute any alcohol or drug abuse patient.[facility] the event this information is protected by the Federal Confidentiality of Alcohol and Drug Abuse Patient Records regulations: The Federal rules restrict any use of the information to criminally investigate or prosecute any alcohol or drug abuse patient.[facility] the event this information is protected by the Federal Confidentiality of Alcohol and Drug Abuse Patient Records regulations: The Federal rules restrict any use of the information to criminally investigate or prosecute any alcohol or drug abuse patient.[facility] the event this information is protected by the Federal Confidentiality of Alcohol and Drug Abuse Patient Records regulations: The Federal rules restrict any use of the information to criminally investigate or prosecute any alcohol or drug abuse patient.[facility] the event this information is protected by the Federal Confidentiality of Alcohol and Drug Abuse Patient Records regulations: The Federal rules restrict any use of the information to criminally investigate or prosecute any alcohol or drug abuse patient.[facility] Dublin[facility] the event this information is protected by the Federal Confidentiality of Alcohol and Drug Abuse Patient Records regulations: The Federal rules restrict any use of the information to criminally investigate or prosecute any alcohol or drug abuse patient.[facility] Dublin[facility] the event this information is protected by the Federal Confidentiality of Alcohol and Drug Abuse Patient Records regulations: The Federal rules restrict any use of the information to criminally investigate or prosecute any alcohol or drug abuse patient.[facility] Dublin[facility] the event this information is protected by the Federal Confidentiality of Alcohol and Drug Abuse Patient Records regulations: The Federal rules restrict any use of the information to criminally investigate or prosecute any alcohol or drug abuse patient.[facility] Dublin[facility] the event this information is protected by the Federal Confidentiality of Alcohol and Drug Abuse Patient Records regulations: The Federal rules restrict any use of the information to criminally investigate or prosecute any alcohol or drug abuse patient.[facility] Care Teams (unrecognized sec tion and content) Support Specialist Relationship Specialty Start Date End Date Jhoan Roberto MD PCP - General Internal Medicine 08/19/11 Support Specialist Relationship Specialty Start Date End Date Jhoan Roberto MD PCP - General Internal Medicine 08/19/11 Support Specialist Relationship Specialty Start Date End Date Jhoan Roberto MD PCP - General Internal Medicine 08/19/11 Support Specialist Relationship Specialty Start Date End Date Jhoan Roberto MD PCP - General Internal Medicine 08/19/11 Support Specialist Relationship Specialty Start Date End Date Jhoan Roberto MD [address] [address] [facility], [place] [address] [place] [address] PCP - General 12/03/09 Jhoan Roberto MD [address] [facility] [place] [address] [place] [id number] PCP - MMO ACO PCP 07/19/21 Support Specialist Relationship Specialty Start Date End Date Jhoan Roberto MD [address] [facility], [address] [address] PCP - General 12/03/09 Jhoan Roberto MD [address] [facility], [facility] [address] [place] [id number] PCP - MMO ACO PCP 07/19/21 Support Specialist Relationship Specialty Start Date End Date Jhoan Roberto MD [address] [facility] [place] [address] [place] [id number] PCP - General 12/03/09 Jhoan Roberto MD [address] [facility] [place] [address] [place] [address] PCP - MMO ACO PCP 07/19/21 Support Specialist Relationship Specialty Start Date End Date EyJhoan hagan MD [address] [facility], [place] [address] [place] [address] PCP - General 12/03/09 Jhoan Roberto MD [address] [facility] [place] [address] [place] [address] PCP - MMO ACO PCP 07/19/21 Support Specialist Relationship Specialty Start Date End Date EyJhoan hagan MD [address] [facility] [place] [address] [place] [address] PCP - General 12/03/09 Jhoan Roberto MD [address] [facility] [place] [address] [place] [address] PCP - MMO ACO PCP 07/19/21 Support Specialist Relationship Specialty Start Date End Date Jhoan Roberto MD [address] [facility] [place] [address] [place] [address] PCP - General 12/03/09 Jhoan Roberto MD [address] [facility] [place] [address] [place] [address] PCP - MMO ACO PCP 07/19/21 Support Specialist Relationship Specialty Start Date End Date Jhoan Roberto MD [address] [facility] [place] [address] [place] [address] PCP - General 12/03/09 Jhoan Roberto MD [address] [facility], [address] [address] PCP - MMO ACO PCP 07/19/21 Support Specialist Relationship Specialty Start Date End Date Jhoan Roberto MD [address] [facility], [address] [address] PCP - General 12/03/09 Jhoan Roberto MD [address] [facility], [address] [address] PCP - MMO ACO PCP 07/19/21 Support Specialist Relationship Specialty Start Date End Date Jhoan Roberto MD PCP - General Internal Medicine 08/19/11 Support Specialist Relationship Specialty Start Date End Date Jhoan Roberto MD PCP - General Internal Medicine 08/19/11 Support Specialist Relationship Specialty Start Date End Date Jhoan Roberto MD [address] [facility], [address] [id number] PCP - General 12/03/09 Jhoan Roberto MD [address] [facility], [address] [address] PCP - MMO ACO PCP 07/19/21 Support Specialist Relationship Specialty Start Date End Date Jhoan Roberto MD [address] [facility] [place] [address] [place] [address] PCP - General 12/03/09 Jhoan Roberto MD [address] [facility] [place] [address] [place] [address] PCP - MMO ACO PCP 07/19/21 Support Specialist Relationship Specialty Start Date End Date Jhoan Roberto MD [address] [facility] [place] [address] [place] [address] PCP - General 12/03/09 Jhoan Roberto MD [address] [facility] [place] [address] [place] [address] PCP - MMO ACO PCP 07/19/21 Support Specialist Relationship Specialty Start Date End Date Jhoan Roberto MD PCP - General Internal Medicine 08/19/11 Support Specialist Relationship Specialty Start Date End Date Jhoan Roberto MD PCP - General Internal Medicine 08/19/11 Support Specialist Relationship Specialty Start Date End Date Jhoan [...] BE BASED ON THE PRIMARY CLINICAL RECORDS. [facility]. provides no warranty or guarantee of the accuracy or completeness of information in this document.
[2023-12-07] MEDS: 0.9 % SODIUM CHLORIDE 1,000 ML 125 ML IV (23:59)
[2023-12-08] VITALS (11 sets, daily range): BP systolic 98–155; BP diastolic 61–82; PULSE 73–108; TEMP 36.6–36.9; O2SAT 90–93
[2023-12-08] MEDS: TRAZODONE HCL 50 MG TABLET 25 MG PO (00:06)
[2023-12-08 00:14] LABS: Lactate/Lactic Acid 1.1 mmol/L (0.4-2.0)
[2023-12-08] MEDS: KETOROLAC TROMETHAMINE 30 MG/ML VIAL 15 MG IVP (00:56)
[2023-12-08] MEDS: 0.9 % SODIUM CHLORIDE 1,000 ML 125 ML IV (05:43)
[2023-12-08 06:21] LABS: Basophils Absolute Auto 0.1 10^3/uL (0.0-0.1); Basophils Percent Auto 0.7 % (0.2-2.0); Eosinophils Absolute Auto 0.3 10^3/uL (0.0-0.7); Eosinophils Percent Auto 3.9 % (0.9-7.0); Hematocrit 28.2 % (36.0-48.0); Hemoglobin 8.5 g/dL (12.0-16.0); Immature Granulocytes Abs Auto 0.03 10^3/uL (0.00-0.03); Immature Granulocytes Pct Auto 0.4 % (0.0-0.5); Lymphocytes Percent Auto 13.1 % (20.5-60.0); Mean Corpuscular HGB Conc 30.1 g/dL (29.9-35.2); Mean Corpuscular Hemoglobin 31.1 pg (26.7-34.0); Mean Corpuscular Volume 103.3 fL (81.0-99.0); Mean Platelet Volume 9.1 fL (9.5-13.5); Monocytes Absolute Auto 0.6 10^3/uL (0.3-0.8); Neutrophils Absolute Auto 5.7 10^3/uL (1.4-6.5); Neutrophils Percent Auto 73.9 % (43.0-75.0); Platelet Count 374 10^3/uL (150-450); Red Blood Count 2.73 10^6/uL (4.20-5.40); Red Cell Distribution Width 14.3 % (11.0-15.0); White Blood Count 7.7 10^3/uL (4.0-11.0)
[2023-12-08 06:34] LABS: Alanine Aminotransferase 24 U/L (14-59); Albumin Globulin Ratio 0.7; Albumin Level 2.1 g/dL (3.4-5.0); Alkaline Phosphatase 38 U/L (46-116); Aspartate Amino Transferase 27 U/L (15-37); BUN Creatinine Ratio 11.4; Bilirubin Total 0.3 mg/dL (0.2-1.0); Calcium 7.3 mg/dL (8.5-10.1); Carbon Dioxide 22.1 mmol/L (21.0-32.0); Chloride 104 mmol/L (98-107); Estimated GFR (African America >60 (>=60); Estimated GFR (Non-African Ame >60 (>=60); Globulin 3.1 g/dL; Glucose 93 mg/dL (74-106); Potassium 3.1 mmol/L (3.5-5.1); Sodium 139 mmol/L (136-145); Total Protein 5.2 g/dL (6.4-8.2)
[2023-12-08 06:49] LABS: Magnesium 0.6 mg/dL (1.8-2.4)
--- NOTE | 2023-12-08 09:39 | P.HP_ITS ---
HPI H&P: HPI History of Present Illness Chief complaint: UTI Sepsis Narrative: HPI and Hospital Course 53-year-old female who is currently in inpatient rehab from alcohol abuse. She she has been sober for over 17 days now. She reports that she started to experience dysuria and increased urination on Thursday and was evaluated by the nurse practitioner at the facility. She was prescribed ciprofloxacin and started using it Thursday night. She was doing better until yesterday morning w hen she started to experience fever, chills and increased urination along with dysuria. She also had left-sided back pain. The nurse at the facility contacted nurse practitioner who recommended that patient be transferred to ER for further evaluation. In ER, patient was found to have a high-grade temperature with fever of 101.8 along with tachycardia, lactic acidosis. She was initially suspected to have sepsis and was treated according to the sepsis protocol and received IV hydration and started on IV Rocephin. I do not believe he truly had sepsis and tachycardia noted was likely because of her high-grade fever. She feels considerably better today after overnight treatment with IV fluids and IV antibiotics. She has really no symptoms to offer except for mild dysuria now. She is stable for discharge on oral antibiotic. Patient was educated on worrisome signs and symptoms that should prompt her to seek emergent care. 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, in remission (ICD-10) Fall ?W19.XXXA - Unspecified fall, initial encounter (ICD-10) Degenerated intervertebral disc Surgical History (Updated 12/07/23 @ 22:23 by Codi Boo RN) H/O wrist surgery ?Z98.890 - Other specified postprocedural states (ICD-10) Social History Highest level of school completed/degree received: Master's degree Meds Home Medications and Allergies Home Medications ?Medication ?Instructions ?Recorded ?Confirmed ?Type ibuprofen 800 mg tablet 800 mg PO Q8H PRN pain 12/07/23 12/07/23 History escitalopram oxalate 20 mg tablet 20 mg PO DAILY 12/08/23 12/08/23 History omeprazole 20 mg capsule,delayed 20 mg PO DAILY 12/08/23 12/08/23 History release Allergies Allergy/AdvReac Type Severity Reaction Status Date / Time No Known Drug Allergies Allergy Verified 12/07/23 18:26 Exam Constitutional Vital Signs, click to edit/add: Last Vital Signs Temp 98.0 F 12/08/23 09:09 Pulse 84 12/08/23 09:09 Resp 16 12/08/23 09:09 BP 155/82 H 12/08/23 09:09 Pulse Ox 93 L 12/08/23 09:09 O2 Del Method Room Air 12/08/23 09:09 Documenting provider has reviewed patient's vital signs: yes Common normals: no apparent distress and oriented x3 General appearance: cooperative HENMT Common normals: normocephalic and head/scalp atraumatic Head and scalp: normocephalic and atraumatic Eye Common normals: conjunctivae normal and no scleral icterus Conjunctiva: conjunctiva(e) normal Respiratory Common normals: normal respiratory effort and clear to auscultation bilaterally Effort & inspection: able to speak in complete sentences Auscultation: clear to auscultation bilaterally Cardio Common normals: regular rate, S1 normal heart sound and S2 normal heart sound Rate: regular rate Heart sounds: S1 normal and S2 normal GI Common normals: Normal to inspection, nondistended, normoactive bowel sounds present, soft to palpation, non-tender and no hepatosplenomegaly Palpation: soft and no hepatosplenomegaly Extremity Common normals: no clubbing, cyanosis or edema Neuro Common normals: oriented x3, moves all extremities and no focal motor deficits Psych Common normals: mental status grossly normal, denies hallucinations, denies homicidal ideation and denies suicidal ideation Results Labs Labs: Short CBC 12/07/23 12/08/23 Range/Units 19:06 06:02 WBC 12.0 H 7.7 (4.0-11.0) 10^3/uL Hgb 9.7 L 8.5 L (12.0-16.0) g/dL Hct 30.5 L 28.2 L (36.0-48.0) % Plt Count 440 374 (150-450) 10^3/uL BMP 12/07/23 12/08/23 19:06 06:02 Sodium 135 L 139 Potassium 2.8 L* 3.1 L Chloride 101 104 Carbon Dioxide 23.2 22.1 BUN 8.0 8.0 Creatinine 0.87 0.70 Glucose 122 H 93 Calcium 8.1 L 7.3 L Liver Function 12/07/23 12/08/23 Range/Units 19:06 06:02 Total Bilirubin 0.4 0.3 (0.2-1.0) mg/dL AST 33 27 (15-37) U/L ALT 32 24 (14-59) U/L Alkaline Phosphatase 51 38 L (46-116) U/L Albumin 2.8 L 2.1 L (3.4-5.0) g/dL Urine 12/07/23 Range/Units 18:50 Urine Color Dk. orange (YELLOW) Urine Clarity Clear (CLEAR) Urine pH 5.5 (5.0-9.0) Ur Specific Purchase 1.025 (1.005-1.025) Urine Protein Trace (NEG/TRACE) mg/dL Urine Glucose (UA) Negative (NEGATIVE) mg/dL ABG ABG results: 12/07/23 19:06 VBG pH 7.422 VBG pCO2 32.8 L Assessment and Plan Assessment and Plan (1) Pyelonephritis: Assessment and Plan: Failed outpatient oral antibiotic therapy and presented with high-grade fever, tachycardia. She is feeling much better and is afebrile and hemodynamically stable. She is stable for discharge on oral Ceftin. Follow-up blood and urine cultures as outpatient. (2) Recovering alcoholic: Assessment and Plan: In inpatient rehab, sober for 17 days. No evidence of alcohol withdrawal. (3) Hypomagnesemia: Assessment and Plan: Ordered IV magnesium. Follow-up as outpatient (4) Lactic acid acidosis: Assessment and Plan: Resolved with IV hydration
[2023-12-08] MEDS: POTASSIUM CHLORIDE 10 MEQ ER TABLET 40 MEQ PO (09:53)
[2023-12-08] MEDS: MAGNESIUM SULFATE IN WATER 2 GM/50 ML PREMIX IV (09:53)
[2023-12-08] MEDS: IBUPROFEN 400 MG TABLET 800 MG PO (10:02)
--- NOTE | 2023-12-08 10:39 | CM.NOTE ---
Rounds made with Dr. Keller, discussed with pt about transfer back to [facility] today. Notified social work nurse of pt's discharge.
--- NOTE | 2023-12-08 11:31 | SWNOTE1 ---
Pt is from [facility]. SW to complete assessment.
--- NOTE | 2023-12-08 13:46 | SWNOTE1 ---
SW met with pt to discuss dc needs. Pt has been at [facility] for 2 weeks. She started in detox for 7 days there and now started on her 30 day recovery. She thinks she still has about 3 weeks left. She plans on finishing it out and is feeling really good. After [facility] she plans on going to AA or intense outpt counseling. She will return to work and still live with her adult daughter. Per patient her daughter is a good support and there is no alcohol in the home. SW to follow as needed.
--- NOTE | 2023-12-08 14:43 | SWNOTE1 ---
Pt is ready for dc back to [facility] today. LAUREL called [facility] to see if they are able to transport. They will call LAUREL back.
--- NOTE | 2023-12-08 15:28 | SWNOTE1 ---
Case management and SW spoke with nurse at [facility] and they are clear to take pt back and they will be on there way shortly. They did request labs to be sent. SW put in packet and took to floor. SW updated nursing.
--- NOTE | 2023-12-09 15:02 | CM.DCFOLLOWU ---
1st attempt 12/09/23
--- NOTE | 2023-12-10 14:20 | CM.DCFOLLOWU ---
2nd attempt 12/10/23
--- NOTE | 2023-12-11 14:48 | CM.DCFOLLOWU ---
3rd attempt 12/11/23
== END 2023-12-08 15:56 | disposition home or self-care (01) ==
LOC: ER 21:05 → MS 12-08 08:52
PROVIDERS: Physician Assistant; Registered Nurse; Admitting Provider Internal Medicine; Emergency Provider Emergency Medicine; PCP Family Medicine; Visit Provider Internal Medicine
DX: N12 Tubulo-interstitial nephritis, not specified as acute or chronic (principal); E83.42 Hypomagnesemia; E87.20 Acidosis, unspecified; D64.9 Anemia, unspecified; E87.6 Hypokalemia; F10.21 Alcohol dependence, in remission; R50.9 Fever, unspecified; R00.0 Tachycardia, unspecified; K57.30 Diverticulosis of large intestine without perforation or abscess without bleeding; Z20.822 Contact with and (suspected) exposure to COVID-19
CPT/HCPCS: 36415; 74176; 80053; 81001; 82800; 83605; 83735; 85025; 85652; 86140; 87040; 87086; 87811; 96365; 96367; 96375; 96376; 99285; G0378; J0696; J1885; J2405; J3475